=== PATIENT | female | born 1965 | race Caucasian/White ===

== ENCOUNTER 2019-12-30 07:31 | Outpatient (RCR) | payer OTHER, SELFPAY ==
[2019-12-30 11:50] LABS: COVID-19 Test Negative (Negative)
[2020-01-05 08:06] LABS: COVID-19 Test Negative (Negative)
[2020-01-13 08:53] LABS: COVID-19 Test Negative (Negative)
[2020-01-30 14:22] LABS: SARS-COV-2 PCR UMBRL Not Detected
[2020-02-12 09:38] LABS: SARS-COV-2 PCR UMBRL Not Detected
== END 2019-12-30 07:32 | disposition home or self-care (01) ==
LOC: HO.EMPCOV 07:31
PROVIDERS: Visit Provider Internal Medicine
DX: Z20.828 Contact with and (suspected) exposure to other viral communicable diseases (principal)
CPT/HCPCS: 87635; C9803; U0003

== ENCOUNTER 2020-03-10 07:07 | Emergency (ER) | payer OTHER, SELFPAY ==
[2020-03-10 07:17] VITALS: BP 123/70; PULSE 85; RESP 18; TEMP 36.1; O2SAT 97; BMI 31.8
--- NOTE | 2020-03-10 07:24 | ED_ITS ---
HPI - Skin/Abscess/Foreign Bdy General Chief complaint: Skin/Abscess/Foreign Body Stated complaint: abscess Time Seen by Provider: 03/10/20 07:24 Source: patient Mode of arrival: ambulatory Limitations: no limitations History of Present Illness HPI narrative: Patient's history of recurrent MRSA abscesses this time she has abscess on right chin for last 3 days started on doxycycline not helping her, getting worse now no fever no chills Related Data Previous Rx's Medication Instructions Recorded sulfamethoxazole-trimethoprim 1 tab PO BID #20 tab 03/10/20 [Bactrim DS] Allergies Allergy/AdvReac Type Severity Reaction Status Date / Time etanercept [From ENBREL] Allergy Unknown RASH Verified 03/10/20 07:21 Review of Systems Review of Systems: Yes all other systems are reviewed and are negative [facility] Past Medical History Medical History (Updated 03/10/20 @ 08:11 by Elliott Slaughter MD) GERD (gastroesophageal reflux disease) Hypothyroid MRSA infection Rheumatoid arthritis Social History Social History Advance Directives: No Advance Directives Information Provided: No Physical Exam Vital Signs: Vital Signs: Last Vital Signs Temp 97.0 F 03/10/20 07:17 Pulse 85 03/10/20 07:17 Resp 18 03/10/20 07:17 BP 123/70 03/10/20 07:17 Pulse Ox 97 03/10/20 07:17 Body Mass Index 31.8 Const: General: comfortable and no acute distress Orientation/consciousness: patient oriented x3 HENMT: Head: Yes normocephalic and Yes atraumatic Face and sinus: Yes e rythema and Yes Facial tenderness on exam of face and sinuses Face images: 1. Erythematous indurated with abscess 4 x 4 cm Teeth and gingiva: dentition normal and gingiva normal Resp: Effort & Inspection: normal respiratory effort Auscultation: clear to auscultation bilaterally Cardio: Rate: regular rate Rhythm: regular rhythm Neuro: General: patient oriented x3 Course Course Course Narrative: Patient with recurrent abscesses comes here with abscess on the chin poor response to doxycycline will do I and D Procedures Abscess I/D Site: face (chin) Side (if applicable): right Local Anesthetic: lidocaine 2% Amount of anesthesia used (mL): 1 Technique: incised with blade Amount of fluid expressed (mL): 1 Sent for culture/gram staining?: Yes Irrigation: No Packing used?: none Discharge Plan Discharge Clinical Impression: Abscess of skin or subcutaneous tissue Qualifiers: Site of cutaneous abscess: face Qualified Code(s): L02.01 - Cutaneous abscess of face Patient Disposition: Home, Self-Care Instructions: Abscess Incision and Drainage (DC) Additional Instructions: Local care as advised continue doxycycline start on Bactrim also report to PCP/ER if gets worse Prescriptions: New sulfamethoxazole-trimethoprim [Bactrim DS] 800-160 mg tablet 1 tab PO BID Qty: 20 RF: 0 Interventions: ED Discharge Assessment Last Done: 03/10/20 08:16 Discharge Date/Time: 03/10/20 08:16
[2020-03-10] MEDS: Lidocaine HCl 2 % MPF 5 ML VIAL INFILTRATI (07:36)
== END 2020-03-10 08:16 | disposition home or self-care (01) ==
PROVIDERS: Emergency Provider Internal Medicine; PCP Internal Medicine
DX: L02.01 Cutaneous abscess of face (principal); Z79.899 Other long term (current) drug therapy
CPT/HCPCS: 10060; 87071; 87147; 87186; 87205; 99283

== ENCOUNTER 2020-03-11 09:49 | Emergency (ER) | payer OTHER, SELFPAY ==
[2020-03-11 10:09] VITALS: BP 149/65; PULSE 61; RESP 16; TEMP 37.1; O2SAT 98; BMI 31.8
--- NOTE | 2020-03-11 10:31 | ED.WOUNDLAC ---
HPI - Wound/Laceration General Chief Complaint: Wound/Laceration Stated Complaint: abscess chin and neck Time Seen by Provider: 03/11/20 10:30 Source: patient Mode of arrival: ambulatory Limitations: no limitations History of Present Illness HPI narrative: Patient with small abscess on the chin for last 4 days was seen here yesterday I and D was done started on Bactrim patient already on doxycycline comes here as she feels not getting better completely pus culture showed Staph aureus final culture report is pending patient denies any fever or chill Related Data Previous Rx's Medication Instructions Recorded sulfamethoxazole-trimethoprim 1 tab PO BID #20 tab 03/10/20 [Bactrim DS] Allergies Allergy/AdvReac Type Severity Reaction Status Date / Time etanercept [From ENBREL] Allergy Unknown RASH Verified 03/10/20 07:21 Review of Systems Review of Systems: Constitutional : No Weight loss, No Fever, No Chills ENT/Mouth : No sore throat, No Rhinorrhea Eyes: No Eye Pain, No Swelling Cardiovascular : No Chest Pain, no palpitations Respiratory : No Cough, No Sputum, no shortness of breath Gastrointestinal : no Nausea, No Vomiting, No Diarrhea, No abdominal Pain, no black stools Genitourinary : No Dysuria, No Urinary Frequency Musculoskeletal : No joint pain, No Myalgias, No Joint Swelling Skin : No Skin Lesions, No rash Neuro : No Weakness, No Numbness, No Dizziness, No Headache Psych : No Anxiety/Panic, No Depression Heme/Lymph: No Bruising, No Lymphadenopathy Endocrine : No Polyuria, No Polydipsia All other systems reviewed and are negative PMFSH Past Medical History Medical History GERD (gastroesophageal reflux disease) Hypothyroid MRSA infection Rheumatoid arthritis Social History Social History Smoked in Last 30 Days: No Use of substances other than those prescribed or required for medical reasons: No Advance Directives: No Advance Directives Information Provided: Yes Physical Exam Vital Signs: Vital Signs: Last Vital Signs Temp 98.8 F 03/11/20 10:09 Pulse 61 03/11/20 10:09 Resp 16 03/11/20 10:09 BP 149/65 H 03/11/20 10:09 Pulse Ox 98 03/11/20 10:09 Body Mass Index 31.8 Appearance: Alert. Oriented X3. No acute distress. Eyes: Pupils equal, round and reactive to light. ENT: Pharynx normal. Small 4 x 4 cm indurated erythematous area on the right chin without any pus discharge Neck: Normal inspection. Neck supple. CVS: Normal heart rate and rhythm. Pulses normal. Respiratory: No respiratory distress. Breath sounds normal. Abdomen: Soft and nontender. Bowel sounds are present, no mass palpable, no CVA tenderness Skin: Skin warm and dry. Normal skin color. Normal skin turgor. Extremities: No lower extremity edema. Neuro: Oriented X 3. No motor deficit. No sensory deficit. HENMT: Face images: 1. 4 x 4 cm erythematous indurated area without any fluctuancy Course Course Course Narrative: Patient came with healing abscess post I&D very anxious wants to get it healed very quick patient is sure that it will take some time to heal will give a dose of IV Vanco as patient insisted MDM - Wound/Laceration MDM Narrative Medical decision making narrative: Patient with abscess on the chin already on doxycycline Bactrim white counts are normal seems to be getting better will give 1 dose of vancomycin IV as patient has subjective feeling of increasing in size Differential Diagnosis Differential diagnosis: Likely abscess Lab Data Attestation: I reviewed the patient's lab results. Result diagrams: 03/11/20 11:01 03/11/20 11:01 Labs: Lab Results 03/11/20 03/11/20 Range/Units 11:01 11:01 WBC 6.0 (4.8-10.8) X10*3/uL RBC 4.01 L (4.20-5.50) X10*6/uL Hgb 12.7 (12.0-16.0) g/dl Hct 38.4 (37-47) % MCV 95.8 (80-98) fL MCH 31.7 (27.0-33.0) pg MCHC 33.1 (31.0-35.0) g/dl RDW 13.6 (11.0-16.0) % Plt Count 295 (160-400) X10*3/uL MPV 9.7 (9.4-12.3) fL Immature Gran % (Auto) 0.3 (0.0-0.4) % Neut % (Auto) 71.7 (45-73) % Lymph % (Auto) 19.1 L (20-40) % [place] % (Auto) 6.7 (2-11) % Eos % (Auto) 2.0 (0-4) % Baso % (Auto) 0.2 (0-2) % Lymph # (Auto) 1.1 L (1.2-4.9) X10*3/uL [place] # (Auto) 0.4 (0.1-1.2) X10*3/uL Eos # (Auto) 0.1 (0.0-0.4) X10*3/uL Baso # (Auto) 0.0 (0.0-0.2) X10*3/uL Abs Immat Gran (auto) 0.02 (0.00-0.03) X10*3/uL Absolute Neuts (auto) 4.3 (2.0-8.3) X10*3/uL Absolute Nucleated RBC 0.000 (0.0-0.012) X10*3/uL Nucleated RBC % (auto) 0.0 (0.0-0.2) /100WBC Sodium 137 (135-145) mmol/L Potassium 4.8 (3.3-5.1) mmol/l Chloride 107 (96-108) mmol/L Carbon Dioxide 19 L (22-29) mmol/L Anion Gap 16 (12-20) BUN 14 (9-16) mg/dL Creatinine 0.78 (0.5-1.4) mg/dL Estim Creat Clear Calc 87.5 Estimated GFR > 60 Random Glucose 81 (60-115) mg/dL Calcium 9.2 (8.4-10.2) mg/dL Discharge Plan Discharge Clinical Impression: Abscess Patient Disposition: Home, Self-Care Instructions: Abscess Incision and Drainage (DC) Additional Instructions: Local care as advised continue antibiotics as prescribed before report to the ER if gets worse/fever Prescriptions: No Action sulfamethoxazole-trimethoprim [Bactrim DS] 800-160 mg tablet 1 tab PO BID Qty: 20 RF: 0
[2020-03-11] MEDS: vancomycin HCL 1,000 MG in 0.9 % Sodium Chloride 250 ML 270 MG IV (10:54)
[2020-03-11 11:05] LABS: MANUAL DIFF FLAG NO
[2020-03-11 11:06] LABS: Basophils Percent Auto 0.2 % (0-2); Eosinophils Absolute Auto 0.1 X10*3/uL (0.0-0.4); Hematocrit 38.4 % (37-47); Hemoglobin 12.7 g/dl (12.0-16.0); Imm Gran Abs Auto 0.02 X10*3/uL (0.00-0.03); Imm Gran Pct Auto 0.3 % (0.0-0.4); Lymphocytes Absolute Auto 1.1 X10*3/uL (1.2-4.9); Lymphocytes Percent Auto 19.1 % (20-40); Mean Corpuscular HGB Conc 33.1 g/dl (31.0-35.0); Mean Corpuscular Hemoglobin 31.7 pg (27.0-33.0); Mean Corpuscular Volume 95.8 fL (80-98); Mean Platelet Volume 9.7 fL (9.4-12.3); Monocytes Absolute Auto 0.4 X10*3/uL (0.1-1.2); Monocytes Percent Auto 6.7 % (2-11); Neutrophils Absolute Auto 4.3 X10*3/uL (2.0-8.3); Neutrophils Percent Auto 71.7 % (45-73); Platelet Count 295 X10*3/uL (160-400); Red Blood Count 4.01 X10*6/uL (4.20-5.50); Red Cell Distribution Width 13.6 % (11.0-16.0)
[2020-03-11 11:36] LABS: Anion Gap 16 (12-20); Blood Urea Nitrogen 14 mg/dL (9-16); Calcium 9.2 mg/dL (8.4-10.2); Carbon Dioxide 19 mmol/L (22-29); Chloride 107 mmol/L (96-108); Creatinine Clr Calc Pharmacy 87.5; Estimated Glomerular Filt Rate > 60; Glucose Random 81 mg/dL (60-115); Potassium 4.8 mmol/l (3.3-5.1); Sodium 137 mmol/L (135-145)
[2020-03-11 12:00] VITALS: BP 98/42; PULSE 58; RESP 16; O2SAT 98
== END 2020-03-11 12:27 | disposition home or self-care (01) ==
PROVIDERS: Emergency Provider Internal Medicine; PCP Internal Medicine
DX: L02.01 Cutaneous abscess of face (principal); Z86.14 Personal history of Methicillin resistant Staphylococcus aureus infection
CPT/HCPCS: 36415; 80048; 85025; 96365; 99284; J3370

== ENCOUNTER 2020-04-25 15:32 | Outpatient (REF) | payer OTHER, SELFPAY ==
[2020-04-25 16:31] LABS: Free T4 (Free Thyroxine) 0.67 ng/dL (0.71-1.85); Thyroid Stimulating Hormone 2.15 uIU/mL (0.32-4.0)
== END 2020-04-25 15:33 | disposition home or self-care (01) ==
LOC: HO.LAB 15:32
PROVIDERS: PCP Internal Medicine; Visit Provider Internal Medicine
DX: E03.9 Hypothyroidism, unspecified (principal); R73.9 Hyperglycemia, unspecified
CPT/HCPCS: 36415; 84439; 84443

== ENCOUNTER 2020-05-03 09:01 | Outpatient (REF) | payer OTHER, SELFPAY ==
--- NOTE | ~2020-05-03 | MM_ITS ---
EXAMINATION: BONE DENSITOMETRY CLINICAL INDICATION: Rheumatoid arthritis without rheumatoid factor. COMPARISON: None (current study represents initial baseline exam). TECHNIQUE: Using a [employer] DXA System (software version: 13.1) manufactured by [employer], dual-energy x-ray absorptiometry was performed of the lumbar spine and left hip. The images are of good technical quality. Summary results are attached. FINDINGS: AP SPINE L1-L4: BMD 1.028 g/cm2, Z-score -1.2, T-score -1.3, osteopenia. LEFT FEMUR, NECK: BMD 0.973 g/cm2, Z-score 0.1, T-score -0.5, normal. LEFT FEMUR, TOTAL: BMD 0.987 g/cm2, Z-score 0.0, T-score -0.2, normal. IDENTIFIED RISK FACTORS: History of adult fracture. Rheumatoid arthritis. Chronic glucocorticoids. Menopause. HISTORY OF FRACTURE: Ribs. MEDICATIONS: Calcium supplement and/or multivitamin. Vitamin D. MM/XR DEXA axial skeleton IMPRESSION: 1. DIAGNOSIS: Osteopenia based on the lowest T-score value of -1.3 in the lumbar spine applying World Health Organization criteria. 2. 10-YEAR FRACTURE RISK PREDICTION, FRAX: Major osteoporotic fracture (clinical spine, forearm, hip or shoulder) 11.1%. Hip fracture 0.4%. 3. Treatment Recommendations: NOF guidelines recommend consideration for treatment in postmenopausal women and men age 50 and older presenting with the following: -A hip or vertebral (clinical or morphometric) fracture. -T-score less than or equal to -2.5 at the femoral neck or spine after appropriate evaluation to exclude secondary causes. -Low bone mass at the hip or spine and a 10-year fracture probability by FRAX of greater than or equal to 3% for hip fracture or greater than or equal to 20% for major osteoporotic fracture based on the [place] adapted WHO algorithm. 4. Other Recommendations: All treatment decisions require clinical judgment and consideration of individual patient factors, including patient preferences, comorbidities, previous drug use, risk factors not captured in the FRAX model (e.g. frailty, falls, vitamin D deficiency, increased bone turnover, interval significant decline in bone density) and possible under or overestimation of fracture risk by FRAX. Additional medical evaluation for secondary cause of low bone mineral density may be appropriate. FUTURE SCAN RECOMMENDATION: People with diagnosed cases of osteoporosis or at high risk for fracture should have regular bone mineral density tests. For patients eligible for Medicare, routine testing is allowed once every 2 years. The testing frequency can be increased to one year for patients who have rapidly progressing disease, those who are receiving or discontinuing medical therapy to restore bone mass, or have additional risk factors.
== END 2020-05-03 09:02 | disposition home or self-care (01) ==
LOC: HO.MAMMO 09:01
PROVIDERS: Visit Provider Internal Medicine
DX: Z13.820 Encounter for screening for osteoporosis (principal); M06.09 Rheumatoid arthritis without rheumatoid factor, multiple sites; Z79.52 Long term (current) use of systemic steroids; Z78.0 Asymptomatic menopausal state
CPT/HCPCS: 77080

== ENCOUNTER 2020-06-10 13:27 | Outpatient (REF) | payer OTHER, SELFPAY ==
[2020-06-10 15:00] LABS: Free T4 (Free Thyroxine) 0.67 ng/dL (0.71-1.85); Thyroid Stimulating Hormone 2.71 uIU/mL (0.32-4.0)
== END 2020-06-10 13:28 | disposition home or self-care (01) ==
LOC: HO.LAB 13:27
PROVIDERS: PCP Internal Medicine; Visit Provider Internal Medicine
DX: E03.9 Hypothyroidism, unspecified (principal)
CPT/HCPCS: 36415; 84439; 84443

== ENCOUNTER → 2020-08-28 08:43 | Outpatient (BNVA) | payer OTHER, SELFPAY | PROVIDERS: PCP Internal Medicine; Referring Provider Internal Medicine; Visit Provider Surgery ==

== ENCOUNTER 2020-09-17 07:25 | Day surgery (SDC) | payer OTHER, SELFPAY ==
[2020-09-10 14:47] VITALS: BMI 31.9
[2020-09-17 08:23] VITALS: BP 114/71; PULSE 59; RESP 16; TEMP 36.3; O2SAT 95
[2020-09-17] MEDS: Lactated Ringers 1,000 ML 50 ML IVCONT (08:33)
--- NOTE | 2020-09-17 08:52 | MHC.SHP ---
Pre-Procedural Eval Section A Date of Service: 09/17/20 Section B Chief Complaint: hidradenitis suppurativa Allergies: Allergies Allergy/AdvReac Type Severity Reaction Status Date / Time etanercept [From ENBREL] Allergy Intermediate RASH Verified 09/10/20 14:53 tofacitinib [From Xeljanz] AdvReac Intermediate high LFT Verified 08/28/20 08:50 Plan I have reviewed the history and physical and performed a pertinent physical examination on my patient. No changes have occurred unless specified.
--- NOTE | 2020-09-17 08:56 | HO.ANESPROP2 ---
HPI - Anesthesia Eval Consult details Narrative: 55 yo female patient for excision of hidradenitis left axilla PMFSH Active Problems Active Problems: All Active Problems (Updated 09/10/20 @ 14:52 by Addie Beltre) Tinnitus (Acute) Elevated blood sugar (Acute) Axillary abscess (Acute) Hidradenitis suppurativa of left axilla (Acute) Urge incontinence (Acute) Hypercholesterolemia (Acute) Hypothyroid (Acute) Rheumatoid arthritis (Acute) GERD (gastroesophageal reflux disease) (Acute) Past Medical History Medical History (Updated 09/10/20 @ 14:52 by Addie Beltre) COVID-19 vaccine administered GERD (gastroesophageal reflux disease) Hidradenitis suppurativa of left axilla Hypercholesterolemia Hypothyroid MRSA infection Rheumatoid arthritis Urge incontinence Family History Family History Mother Myocardial infarct Father Lung cancer Paternal Uncle Bladder cancer Paternal Aunt Stomach cancer Maternal Uncle Myocardial infarct Family history of problems with anesthesia: No Surgical History Surgical History Compartment syndrome H/O tubal ligation History of eye surgery Hx of tonsillectomy Inguinal hernia Plantar fasciitis, bilateral Ulnar neuropathy at elbow of left upper extremity History of Problems with Anesthesia: Yes (Nausea following 1 surgery) Social History Social History Are you a primary healthcare customer service to a significant other at home: No Do you presently have visiting nurse or other home services: No Alcohol intake: current Alcohol intake frequency: holidays/special occasions only Patient Tobacco Use Status: Never used Tobacco Use of substances other than those prescribed or required for medical reasons: No Have you been hit, kicked, punched, or otherwise hurt by someone within the past year? If so, by whom?: No Are you DNR?: No Advance Directives: No Advance Directives Information Provided: Yes (patient states in process but no official HCP yet) Advance Directives on File: No Recently lost weight without trying: No Eating poorly because of decreased appetite: No Nutrition Risks: No Nutritional Risk Patient : No FDLMP: N/A : No Poor oral hygiene: No Meds Allergies Allergy/AdvReac Type Severity Reaction Status Date / Time etanercept [From ENBREL] Allergy Intermediate RASH Verified 09/10/20 14:53 tofacitinib [From Xeljanz] AdvReac Intermediate high LFT Verified 08/28/20 08:50 Home Medications Medication Instructions Recorded Confirmed Last Taken Type citalopram 20 mg tablet 20 mg PO DAILY 04/25/20 09/10/20 09/17/20 07:00 History multivitamin 1 tab PO DAILY 04/25/20 09/10/20 Unknown History upadacitinib 15 mg tablet,extended 15 mg PO DAILY 04/25/20 09/10/20 09/17/20 07:00 History release 24 hr (Rinvoq) Exam Exam Date and Time: September 17, 2020 0856 Height,Weight and Vital Signs: Height 5 ft 5.5 in Weight 88.451 kg Last Vital Signs Temp 97.3 F 09/17/20 08:23 Pulse 59 09/17/20 08:23 Resp 16 09/17/20 08:23 BP 114/71 09/17/20 08:23 Pulse Ox 95 09/17/20 08:23 Airway Mallampati Class: II TM Dist: >3cm Neck ROM: Full Heart: RRR Lungs: CTAB Assessment and Plan Assessment Anesthesia Assessment: Anesthesia Plan Discussed and Chart Reviewed Final Anesthetic Review Family History of Problems with Anesthesia: No History of Problems with Anesthesia: Yes (Nausea following 1 surgery) NPO: Yes ASA Class: II Final Preanesthetic Review: No Changes in Pt Med Stat, Meds/Allgs Chart Reviewed, Consent Obtained/Reviewed and Anes Risks/Benef Reviewed Patient Risk: Low Procedure Risk: Low Assessment/Block/Sedation in SS: Assess/Block/Sedation-SS Anesthetic Plan Anesthetic Plan: GA and MAC: Disposition: Standard PACU
--- NOTE | 2020-09-17 09:48 | W.PM.OPN ---
Operative Note Operative Note Date of Service: 09/17/20 Narrative: Preop diagnosis: Hidradenitis suppurativa left axilla Postop diagnosis: The same Procedure: Excision of hidradenitis suppurative, left axilla Surgeon: Hayden Ramires MD employment assistant: DAVID Higgins The patient is the 55-year-old female with a risk of recurrent pain, swelling and drainage on the left axilla. She was seen in the office and there were 2 area of induration in the left axilla with drainage. In view of this recurrent symptoms, she wanted to proceed with excision. She understood the technique of excision under anesthesia. She was aware of the risks, benefits, and alternatives. She was brought to the operating room and placed in supine position with the arm abducted to expose the left axilla. She was in monitored anesthesia care. A surgical time-out was done. The left axilla was prepped and draped in the usual sterile fashion. Again there was note of 2 areas of induration, 1 about 1.5 cm in diameter, and the 2nd 1 about 3 cm in diameter. I infiltrated the area of excision using lidocaine 1%. I first made and vertical incision around the smaller area of induration using blade 15. And this was carried down through the full-thickness skin subcutaneous fat using electrocautery to excise the entire indurated area. This was sent as specimen. This incision was about 2 cm in length and width. I then made another elliptical incision around the 2nd area of induration using a blade 15 and this carried down through the full-thickness skin subcutaneous fat to excise the entire indurated area. This was also sent as a specimen. The length of this incision about 3.8 cm and about 3 cm wide. I radiated both areas of excision. I closed both incisions with simple interrupted nylon 3-0 sutures alternating with vertical mattress sutures. Dressings were applied. The area of excision was infiltrated with Marcaine 0.5% for postop analgesia. The procedure was then completed The patient tolerated procedure well. There were no complications noted. Initial final counts of sponges and instruments were correct. Estimated blood loss was about 10 cc The patient was then transferred to the recovery room with stable vital signs.
--- NOTE | 2020-09-17 09:53 | PM.OP ---
Brief Operative Note Date of Service: 09/17/20 Pre-op diagnosis: Hidradenitis suppurativa left axilla Post-op diagnosis: same Procedure: Hidradenitis suppurative a left axilla Surgeon: Hayden Ramires MD Anesthesia: MAC Was an Aircraft Stress Analyst used for this Procedure?: Yes Aircraft Stress Analyst: Savi Higgins Estimated blood loss (mL): 10 Pathology: other (Hidradenitis) Condition: stable Disposition: PACU
[2020-09-17 10:01] VITALS: BP 128/84; PULSE 60; RESP 16; TEMP 36.2; O2SAT 96
[2020-09-17 10:16] VITALS: BP 138/86; PULSE 93; RESP 16; O2SAT 95
[2020-09-17] MEDS: Acetaminophen 325 MG TABLET 650 MG PO (10:20)
[2020-09-17 10:31] VITALS: BP 146/86; PULSE 58; RESP 16; TEMP 36.2; O2SAT 97
[2020-09-17] MEDS: oxyCODONE HCl Immed Release 5 MG TABLET PO (10:35)
== END 2020-09-17 11:00 | disposition home or self-care (01) ==
PROVIDERS: PCP Internal Medicine; Visit Provider Surgery
PROC: (CPT 11450; principal; 2020-09-17 09:10)
DX: L73.2 Hidradenitis suppurativa (principal); Z86.14 Personal history of Methicillin resistant Staphylococcus aureus infection; M06.9 Rheumatoid arthritis, unspecified; K21.9 Gastro-esophageal reflux disease without esophagitis; E78.00 Pure hypercholesterolemia, unspecified; Z79.899 Other long term (current) drug therapy; Z88.0 Allergy status to penicillin
CPT/HCPCS: 11450; 88305; 88307; J0690; J1100; J2250; J2405; J3010

== ENCOUNTER → 2020-09-25 08:35 | Outpatient (BNVA) | payer OTHER, SELFPAY | PROVIDERS: PCP Internal Medicine; Referring Provider Internal Medicine; Visit Provider Surgery ==

== ENCOUNTER → 2020-09-30 11:14 | Outpatient (BNVA) | payer OTHER, SELFPAY | PROVIDERS: PCP Internal Medicine; Visit Provider Surgery ==

== ENCOUNTER 2020-11-06 23:24 | Outpatient (REF) | payer OTHER, SELFPAY ==
[2020-11-07 00:03] LABS: COVID-19 Test Negative (Negative); IDNOW Serial# 9DD0AD1C
== END 2020-11-06 23:25 | disposition home or self-care (01) ==
LOC: HO.LAB 23:24
PROVIDERS: Internal Medicine; Visit Provider Nurse Practitioner Family
DX: Z20.822 Contact with and (suspected) exposure to COVID-19 (principal)
CPT/HCPCS: 36415; 87635

== ENCOUNTER 2021-04-09 07:25 | Outpatient (REF) | payer OTHER, SELFPAY ==
--- NOTE | ~2021-04-09 | XR_ITS ---
EXAMINATION: XR RIBS, RIGHT CLINICAL INFORMATION: Chest pain. Right rib pain. COMPARISON: None TECHNIQUE: 3 views of the right ribs were obtained with marker along the right lower chest wall. Chest one view FINDINGS: CHEST: The lungs are well-expanded and clear acute pneumonic consolidation. There is no pleural effusion or pneumothorax. There is bilateral apical pleural thickening and minimal apical scarring. The heart size and progress clarities normal. No gross bony abnormality seen. RIGHT RIBS: Multiple views of right ribs reveal no visible rib fracture. Or bony abnormality. The soft tissues are normal. XR/XR ribs RT min 3V w CXR1V IMPRESSION: Unremarkable chest exam except for bilateral apical pleural thickening. No visible right rib fracture or bony abnormality.
== END 2021-04-09 07:26 | disposition home or self-care (01) ==
LOC: HO.XRAY 07:25
PROVIDERS: PCP Internal Medicine; Visit Provider Internal Medicine
DX: R07.9 Chest pain, unspecified (principal)
CPT/HCPCS: 71101

== ENCOUNTER 2021-06-05 07:58 | Outpatient (REF) | payer OTHER, SELFPAY ==
--- NOTE | ~2021-06-05 | XR_ITS ---
EXAMINATION: XR LUMBOSACRAL SPINE CLINICAL INFORMATION: Left-sided lower back pain for 7-8 months. COMPARISON: None TECHNIQUE: Three views of the lumbosacral spine. FINDINGS: There is normal vertebral segmentation with 5 nonrib-bearing vertebrae of normal height and normal lumbar lordosis. There is gentle dextrocurvature. No destructive process, spondylolisthesis, disc narrowing, or erosive changes. There is fine radiolucent line overlying the left transverse process L4, possibly artifact from soft tissue planes. Acute nondisplaced hairline fracture may have similar appearance. Clinically correlate. The SI joints and visualized sacrum are unremarkable. Bowel gas unremarkable. XR/XR lumbar spine 2-3V IMPRESSION: -Artifactual radiolucent line from soft tissue planes overlying left transverse process L4 versus acute nondisplaced hairline fracture. Clinically correlate. -No lumbar vertebral compression, spondylolisthesis, or disc narrowing.
[2021-06-05 09:06] LABS: MANUAL DIFF FLAG NO
[2021-06-05 09:52] LABS: Basophils Percent Auto 0.5 % (0-2); Eosinophils Absolute Auto 0.1 X10*3/uL (0.0-0.4); Eosinophils Percent Auto 1.1 % (0-4); Hematocrit 41.4 % (37.0-47.0); Hemoglobin 13.8 g/dl (12.0-16.0); Imm Gran Abs Auto 0.03 X10*3/uL (0.00-0.03); Imm Gran Pct Auto 0.5 % (0.0-0.4); Lymphocytes Absolute Auto 1.3 X10*3/uL (1.2-4.9); Lymphocytes Percent Auto 21.2 % (20-40); Mean Corpuscular HGB Conc 33.3 g/dl (31.0-35.0); Mean Corpuscular Hemoglobin 31.7 pg (27.0-33.0); Mean Corpuscular Volume 95.2 fL (80.0-98.0); Mean Platelet Volume 9.8 fL (9.4-12.3); Monocytes Absolute Auto 0.5 X10*3/uL (0.1-1.2); Monocytes Percent Auto 7.8 % (2-11); Neutrophils Absolute Auto 4.3 x10*3/uL (2.0-8.3); Neutrophils Percent Auto 68.9 % (45-73); Platelet Count 441 X10*3/uL (160-400); Red Blood Count 4.35 X10*6/uL (4.20-5.50); White Blood Count 6.3 X10*3/uL (4.8-10.8)
[2021-06-05 10:03] LABS: Estimated Average Glucose 120 mg/dL; Hemoglobin A1c % 5.8 %
[2021-06-05 10:29] LABS: Alanine Aminotransferase 107 U/L (0-31); Albumin Level 4.4 g/dL (3.5-5.0); Alkaline Phosphatase 69 U/L (39-117); Anion Gap 15 (12-20); Aspartate Amino Transferase 74 U/L (5-31); Bilirubin Total 0.4 mg/dL (0.0-1.0); Blood Urea Nitrogen 14 mg/dL (9-16); C Reactive Protein 0.12 mg/dL (< or = 0.50); Calcium 10.1 mg/dL (8.4-10.2); Carbon Dioxide 23 mmol/L (22-29); Chloride 105 mmol/L (96-108); Cholesterol 318 mg/dL; Estimated Glomerular Filt Rate > 60; Glucose Random 94 mg/dL (60-115); HDL Cholesterol 63 mg/dL; LDL Cholesterol Calculated 203 mg/dl; Potassium 4.8 mmol/L (3.3-5.1); Sodium 138 mmol/L (135-145); Total Protein 7.7 g/dL (6.5-8.0); Triglycerides 263 mg/dL
[2021-06-05 10:40] LABS: Free T4 (Free Thyroxine) 0.73 ng/dL (0.71-1.85); Thyroid Stimulating Hormone 1.12 uIU/mL (0.32-4.0); Vitamin D 25-OH Total 17.3 ng/mL (>30)
[2021-06-05 10:51] LABS: Folate 13.4 ng/mL (> or = 4.0); Vitamin B12 425 pg/mL (200-900)
[2021-06-05 11:33] LABS: Erythrocyte Sedimentation Rate 10 MM/HR (0-20)
== END 2021-06-05 07:59 | disposition home or self-care (01) ==
LOC: HO.LAB 07:58
PROVIDERS: PCP Internal Medicine; Visit Provider Internal Medicine Rheumatology
DX: K21.9 Gastro-esophageal reflux disease without esophagitis (principal); R73.9 Hyperglycemia, unspecified; E78.00 Pure hypercholesterolemia, unspecified; E03.9 Hypothyroidism, unspecified; M06.09 Rheumatoid arthritis without rheumatoid factor, multiple sites; L73.2 Hidradenitis suppurativa; R74.01 Elevation of levels of liver transaminase levels; M54.50 Low back pain, unspecified; Z79.899 Other long term (current) drug therapy
CPT/HCPCS: 36415; 72100; 80053; 80061; 82306; 82607; 82746; 83036; 84439; 84443; 85025; 85652; 86140

== ENCOUNTER 2021-09-23 15:29 | Outpatient (REF) | payer BC, SELFPAY ==
[2021-09-23 17:06] LABS: Estimated Glomerular Filt Rate > 60
[2021-09-23 17:25] LABS: Erythrocyte Sedimentation Rate 17 MM/HR (0-20)
== END 2021-09-23 15:30 | disposition home or self-care (01) ==
LOC: HO.LAB 15:29
PROVIDERS: Absent Provider Internal Medicine Rheumatology; PCP Internal Medicine; Visit Provider Advanced Practice Midwife
DX: R10.2 Pelvic and perineal pain (principal); M06.09 Rheumatoid arthritis without rheumatoid factor, multiple sites; Z79.899 Other long term (current) drug therapy
CPT/HCPCS: 36415; 81003; 82565; 85652

== ENCOUNTER 2021-10-06 16:42 | Outpatient (REF) | payer BC, SELFPAY ==
[2021-10-06 18:01] LABS: Alanine Aminotransferase 92 U/L (0-31); Albumin Level 4.2 g/dL (3.5-5.0); Alkaline Phosphatase 84 U/L (39-117); Aspartate Amino Transferase 63 U/L (5-31); Bilirubin Direct < 0.2 mg/dL (0.0-0.5); Bilirubin Total 0.2 mg/dL (0.0-1.0); Total Protein 7.6 g/dL (6.5-8.0)
== END 2021-10-06 16:43 | disposition home or self-care (01) ==
LOC: HO.LAB 16:42
PROVIDERS: PCP Internal Medicine; Visit Provider Internal Medicine Rheumatology
DX: M06.09 Rheumatoid arthritis without rheumatoid factor, multiple sites (principal); R74.01 Elevation of levels of liver transaminase levels; Z79.899 Other long term (current) drug therapy
CPT/HCPCS: 36415; 80076

== ENCOUNTER 2021-11-11 13:51 | Outpatient (REF) | payer BC, SELFPAY ==
--- NOTE | ~2021-11-11 | MM_ITS ---
EXAMINATION: MM SCREENING DIGITAL BREAST TOMOSYNTHESIS, BILATERAL CLINICAL INFORMATION: Screening. Asymptomatic. Remote prior mammography no longer available. The lifetime risk of breast cancer based on the Tyrer-Cuzick Model is 7%. COMPARISON: None (current study represents new baseline exam). TECHNIQUE: Digital breast tomosynthesis is performed in both the craniocaudal and mediolateral oblique views along with computer-aided detection (CAD). Synthesized 2D images are generated from the tomosynthesis. FINDINGS: There are scattered areas of fibroglandular density (ACR BI-RADS breast composition Category b). There are no significant masses, abnormal calcifications, or other abnormalities. Breast tissue composition borders on predominantly fatty. No architectural abnormality. The axilla and skin contours are unremarkable. MM/MM tomosynthesis screening BI IMPRESSION: No mammographic evidence of malignancy. ASSESSMENT: BI-RADS 1: Negative RECOMMENDATION: Routine annual mammography screening. This patient's information was entered into a reminder system with a target due date for their next mammogram.
--- NOTE | ~2021-11-11 | US_ITS ---
EXAMINATION: US PELVIS CLINICAL INFORMATION: Pelvic and perineal pain. COMPARISON: None TECHNIQUE: Ultrasound of the pelvis is performed using both transabdominal and transvaginal transducers. Transvaginal imaging is performed due to inadequate visualization transabdominally. FINDINGS: Uterus: The uterus is retroverted, anteflexed and measures 4.4 x 3 x 3.8 cm. The double wall endometrial thickness is 3 mm. The uterus is smooth in contour and has normal myometrial echogenicity. No visible fibroid. Adnexa: The ovaries are not visualized. No adnexal mass. No free fluid. US/US pelvic and transvaginal IMPRESSION: Unremarkable appearance of the uterus. Nonvisualization of the ovaries. No adnexal mass.
== END 2021-11-11 13:52 | disposition home or self-care (01) ==
LOC: HO.US 13:51
PROVIDERS: Visit Provider Advanced Practice Midwife
DX: Z12.31 Encounter for screening mammogram for malignant neoplasm of breast (principal); R10.2 Pelvic and perineal pain
CPT/HCPCS: 76830; 76856; 77063; 77067

== ENCOUNTER 2021-11-21 14:47 | Outpatient (REF) | payer BC, SELFPAY ==
[2021-11-21 14:56] LABS: MANUAL DIFF FLAG NO
[2021-11-21 16:13] LABS: Alanine Aminotransferase 85 U/L (0-31); Aspartate Amino Transferase 68 U/L (5-31); C Reactive Protein 0.56 mg/dL (< or = 0.50); Estimated Glomerular Filt Rate > 60
[2021-11-21 16:14] LABS: Basophils Percent Auto 0.6 % (0-2); Eosinophils Absolute Auto 0.2 X10*3/uL (0.0-0.4); Eosinophils Percent Auto 4.7 % (0-4); Hematocrit 39.6 % (37.0-47.0); Imm Gran Abs Auto 0.01 X10*3/uL (0.00-0.03); Imm Gran Pct Auto 0.2 % (0.0-0.4); Lymphocytes Absolute Auto 1.3 X10*3/uL (1.2-4.9); Lymphocytes Percent Auto 27.4 % (20-40); Mean Corpuscular HGB Conc 32.8 g/dl (31.0-35.0); Mean Corpuscular Hemoglobin 31.3 pg (27.0-33.0); Mean Corpuscular Volume 95.4 fL (80.0-98.0); Mean Platelet Volume 10.1 fL (9.4-12.3); Monocytes Absolute Auto 0.4 X10*3/uL (0.1-1.2); Monocytes Percent Auto 9.5 % (2-11); Neutrophils Absolute Auto 2.7 x10*3/uL (2.0-8.3); Neutrophils Percent Auto 57.6 % (45-73); Platelet Count 337 X10*3/uL (160-400); Red Blood Count 4.15 X10*6/uL (4.20-5.50); Red Cell Distribution Width 13.2 % (11.0-16.0); White Blood Count 4.6 X10*3/uL (4.8-10.8)
[2021-11-21 17:24] LABS: Erythrocyte Sedimentation Rate 18 MM/HR (0-20)
== END 2021-11-21 14:48 | disposition home or self-care (01) ==
LOC: HO.LAB 14:47
PROVIDERS: PCP Internal Medicine; Visit Provider Internal Medicine Rheumatology
DX: M06.09 Rheumatoid arthritis without rheumatoid factor, multiple sites (principal); R74.01 Elevation of levels of liver transaminase levels; Z79.899 Other long term (current) drug therapy
CPT/HCPCS: 36415; 82565; 84450; 84460; 85025; 85652; 86140

== ENCOUNTER 2021-12-30 07:04 | Outpatient (REF) | payer BC, SELFPAY ==
[2021-12-30 11:57] LABS: Blood Urea Nitrogen 14 mg/dL (9-16)
== END 2021-12-30 07:05 | disposition home or self-care (01) ==
LOC: HO.WFDLDS 07:04
PROVIDERS: Visit Provider Physician Assistant
DX: R10.9 Unspecified abdominal pain (principal)
CPT/HCPCS: 36415; 84520

== ENCOUNTER 2022-01-02 16:01 | Outpatient (REF) | payer BC, SELFPAY ==
--- NOTE | ~2022-01-02 | US_ITS ---
EXAMINATION: US THYROID CLINICAL INFORMATION: Hypothyroidism, unspecified. COMPARISON: None TECHNIQUE: Linear transducer grayscale and color Doppler examination with attention to the region of the thyroid. FINDINGS: SIZE: Measurements of the thyroid lobes and nodules are given in sagittal, anteroposterior and transverse dimensions respectively. Right Thyroid Lobe: 5.5 x 1.9 x 1.7 cm, volume 9.3 mL. Parenchyma: The gland echotexture is heterogeneous. Thyroid vascularity is normal. Left Thyroid Lobe: 5.2 x 2.0 x 2.0 cm, volume 10.9 mL. Parenchyma: The gland echotexture is heterogeneous. Thyroid vascularity is normal. Isthmus: 0.6 cm in maximum AP dimension. Estimated total number of nodules greater than or equal to 1 cm: 0. Rehabilitation Services Aide nodules are described as follows: 1. Location: Left superior. Size: 0.4 x 0.2 x 0.2 cm, volume 0.01 mL. Nodule characteristics: Composition: Solid (2). Echogenicity: Hypoechoic (2). Shape: Not taller than wide (0). Margins: Irregular (2). Echogenic Foci: None (0). ACR TI-RADS total points: 6 ACR TI-RADS category: 4 NODES: No lymphadenopathy is seen in the tissue surrounding the thyroid gland. US/US thyroid IMPRESSION: The thyroid parenchyma is slightly heterogeneous which is nonspecific but could be seen with thyroiditis or autoimmune thyroid disorders. Correlate clinically and with laboratory findings. There is a subcentimeter left upper pole TR-4 nodule, not meeting size criteria for further evaluation according to the ACR TI-RADs recommendations (see below). ACR TI-RADS RECOMMENDATION REFERENCE: Ultrasound-guided fine-needle aspiration, followup ultrasound, no further follow up. * TR1 (0 point) and TR 2 (2 points): No FNA or follow up. * TR3 (3 points): FNA if more than or equal to 2.5 cm in maximum dimension, followup ultrasound in 1, 3 and 5 years if 1.5 to 2.4 cm in maximum dimension. * TR4 (4-6 points): FNA if more than or equal to 1.5 cm in maximum dimension, followup ultrasound in 1, 2, 3 and 5 years if 1 to 1.4 cm in maximum dimension. * TR5 (more than or equal to 7 points): FNA if more than or equal to 1 cm in maximum dimension, followup ultrasound every year for 5 years if 0.5 to 0.9 cm in maximum dimension. * TR3, TR4 or TR5 nodules that are below the size threshold for followup receive no follow up.
== END 2022-01-02 16:02 | disposition home or self-care (01) ==
LOC: HO.US 16:01
PROVIDERS: Visit Provider Internal Medicine
DX: E03.9 Hypothyroidism, unspecified (principal)
CPT/HCPCS: 76536

== ENCOUNTER 2022-01-06 10:14 | Outpatient (REF) | payer BC, SELFPAY ==
--- NOTE | ~2022-01-06 | CT_ITS ---
EXAMINATION: CT ABDOMEN AND PELVIS WITH CONTRAST CLINICAL INFORMATION: Abdominal pain COMPARISON: Previous pelvic ultrasound October 2021 TECHNIQUE: Multidetector volumetric images were obtained from the superior aspect of the liver through the pubic symphysis following administration 85 mL of Omnipaque 350 intravenous contrast. Sagittal and coronal reformatted images were obtained on the technologist's workstation. Oral contrast: Yes This CT examination was performed using dose optimization techniques as appropriate, variously including the following: *Automated exposure control *Adjustment of mA and/or kV according to patient size (this includes techniques or standardized protocols for targeted exams where dose is matched to indication/reason for exam; i.e. extremities or head) *Use of iterative reconstruction technique DLP: 523 mGy-cm FINDINGS: LUNG BASES: 5 mm left lower lobe nodule axial image 7 series LIVER, GALLBLADDER, AND BILIARY TREE: The liver is low in attenuation suggestive of fatty infiltration. The liver is normal in size and contour.. No focal hepatic lesion or biliary ductal dilatation is present. The gallbladder is unremarkable with no evidence of radiopaque gallstones, gallbladder wall thickening, or obvious pericholecystic inflammatory changes. PANCREAS: Unremarkable. SPLEEN: Unremarkable. ADRENAL GLANDS: Unremarkable. KIDNEYS AND URETERS: The kidneys are normal in size, shape, and attenuation. No hydronephrosis, hydroureter, or calculi seen. No perinephric stranding. BLADDER: Unremarkable. GASTROINTESTINAL TRACT: There may be a small duodenal diverticulum adjacent to the head of the pancreas. There is stool throughout the colon questionable for mild constipation. No evidence of obstruction. The small and large bowel are otherwise unremarkable. The appendix is unremarkable. ABDOMINAL WALL: No significant hernia is appreciated. LYMPH NODES: Normal. VASCULAR: Unremarkable. PELVIC VISCERA: Unremarkable. OSSEOUS STRUCTURES: Mild degenerative changes of the spine. CT/CT abdomen pelvis w IV con IMPRESSION: 5 mm left lower lobe nodule. Follow-up chest CT recommended. Fatty liver. Stool throughout the colon questionable for mild constipation. Fleischner guidelines were followed.
[2022-01-06] MEDS: iohexoL 350 MG/ML 100 ML INFUS..BTL IV (10:59)
[2022-01-06 14:46] LABS: Creatinine POC 0.8 mg/dL (0.5-1.4); GFR POC > 60
== END 2022-01-06 10:15 | disposition home or self-care (01) ==
LOC: HO.CT 10:14
PROVIDERS: PCP Internal Medicine; Visit Provider Physician Assistant
DX: R10.9 Unspecified abdominal pain (principal)
CPT/HCPCS: 74177; 82565; Q9967

== ENCOUNTER 2022-01-09 09:35 | Outpatient (REF) | payer BC, SELFPAY ==
[2022-01-09 11:33] LABS: Alanine Aminotransferase 76 U/L (0-31); Albumin Level 4.4 g/dL (3.5-5.0); Alkaline Phosphatase 77 U/L (39-117); Anion Gap 15 (12-20); Aspartate Amino Transferase 48 U/L (5-31); Bilirubin Total 0.4 mg/dL (0.0-1.0); Blood Urea Nitrogen 14 mg/dL (9-16); C Reactive Protein 0.08 mg/dL (< or = 0.50); Calcium 9.5 mg/dL (8.4-10.2); Carbon Dioxide 22 mmol/L (22-29); Chloride 106 mmol/L (96-108); Cholesterol 308 mg/dL; Estimated Glomerular Filt Rate > 60; Glucose Random 96 mg/dL (60-115); HDL Cholesterol 64 mg/dL; LDL Cholesterol Calculated 214 mg/dl; Potassium 4.9 mmol/L (3.3-5.1); Sodium 138 mmol/L (135-145); Total Protein 7.8 g/dL (6.5-8.0); Triglycerides 151 mg/dL
[2022-01-09 11:46] LABS: Estimated Average Glucose 126 mg/dL; Vitamin D 25-OH Total 27.5 ng/mL (>30)
[2022-01-11 10:17] LABS: Calcium (PTHI) 9.4 mg/dL (8.6-10.4); PTHI 72 pg/mL (16-77)
== END 2022-01-09 09:36 | disposition home or self-care (01) ==
LOC: HO.LAB 09:35
PROVIDERS: PCP Internal Medicine; Visit Provider Internal Medicine
DX: M06.09 Rheumatoid arthritis without rheumatoid factor, multiple sites (principal); R73.01 Impaired fasting glucose; R74.01 Elevation of levels of liver transaminase levels; E55.9 Vitamin D deficiency, unspecified; E78.00 Pure hypercholesterolemia, unspecified; Z79.899 Other long term (current) drug therapy
CPT/HCPCS: 36415; 80053; 80061; 82306; 83036; 83970; 86140

== ENCOUNTER 2022-04-01 10:32 | Outpatient (REF) | payer BC, SELFPAY ==
--- NOTE | ~2022-04-01 | XR_ITS ---
EXAMINATION: XR CHEST CLINICAL INFORMATION: Other signs and symptoms involving with circulatory and respiratory systems COMPARISON: Previous chest x-ray March 2022 TECHNIQUE: 2 views of the chest were obtained. FINDINGS: The cardiac and mediastinal contours are stable. There is bilateral mild pleural thickening that is stable. The lungs are otherwise clear. There is no pleural effusion or pneumothorax. Bony structures are unremarkable. XR/XR chest 2V IMPRESSION: No evidence for acute disease in the chest.
[2022-04-01 13:01] LABS: MANUAL DIFF FLAG NO
[2022-04-01 13:06] LABS: Basophils Percent Auto 0.6 % (0-2); Eosinophils Absolute Auto 0.1 X10*3/uL (0.0-0.4); Eosinophils Percent Auto 1.2 % (0-4); Hematocrit 41.6 % (37.0-47.0); Hemoglobin 13.9 g/dl (12.0-16.0); Imm Gran Abs Auto 0.01 X10*3/uL (0.00-0.03); Imm Gran Pct Auto 0.2 % (0.0-0.4); Lymphocytes Absolute Auto 2.1 X10*3/uL (1.2-4.9); Lymphocytes Percent Auto 39.8 % (20-40); Mean Corpuscular HGB Conc 33.4 g/dl (31.0-35.0); Mean Corpuscular Hemoglobin 31.3 pg (27.0-33.0); Mean Corpuscular Volume 93.7 fL (80.0-98.0); Mean Platelet Volume 9.4 fL (9.4-12.3); Monocytes Absolute Auto 0.4 X10*3/uL (0.1-1.2); Monocytes Percent Auto 8.2 % (2-11); Neutrophils Absolute Auto 2.6 x10*3/uL (2.0-8.3); Platelet Count 376 X10*3/uL (160-400); Red Blood Count 4.44 X10*6/uL (4.20-5.50); Red Cell Distribution Width 13.9 % (11.0-16.0); White Blood Count 5.2 X10*3/uL (4.8-10.8)
[2022-04-01 13:48] LABS: Erythrocyte Sedimentation Rate 13 MM/HR (0-20)
[2022-04-01 14:20] LABS: Alanine Aminotransferase 148 U/L (0-31); Aspartate Amino Transferase 80 U/L (5-31); Estimated Glomerular Filt Rate > 60
[2022-04-01 16:17] LABS: Influenza A PCR NEGATIVE (Negative); Influenza B PCR NEGATIVE (Negative); Resp Syncy Virus RNA Qual PCR POSITIVE (Negative); SARS COV2 PCR INHOUSE NEGATIVE (Negative)
== END 2022-04-01 10:33 | disposition home or self-care (01) ==
LOC: HO.LAB 10:32
PROVIDERS: Absent Provider Internal Medicine Rheumatology; PCP Internal Medicine; Visit Provider Nurse Practitioner Family
DX: Z20.822 Contact with and (suspected) exposure to COVID-19 (principal); M06.09 Rheumatoid arthritis without rheumatoid factor, multiple sites; R74.01 Elevation of levels of liver transaminase levels; R05.9 Cough, unspecified; R09.89 Other specified symptoms and signs involving the circulatory and respiratory systems; Z79.899 Other long term (current) drug therapy
CPT/HCPCS: 0241U; 36415; 71046; 82565; 84450; 84460; 85025; 85652; 86140

== ENCOUNTER → 2022-04-21 10:07 | Outpatient (BNVA) | payer BC, SELFPAY | PROVIDERS: PCP Internal Medicine; Visit Provider Internal Medicine Rheumatology | DX: Z13.89 Encounter for screening for other disorder (principal) ==

== ENCOUNTER 2022-06-16 10:28 | Day surgery (SDC) | payer BC, SELFPAY ==
[2022-06-12 10:02] VITALS: BMI 32.5
--- NOTE | 2022-06-15 13:09 | HO.ANESPROP2 ---
HPI - Anesthesia Eval Consult details Narrative: 57yo F for Upper Endoscopy and Colonoscopy [facility] Active Problems Active Problems: All Active Problems (Updated 06/12/22 @ 09:55 by Mayela Magana RN) Tinnitus (Acute) Generalized anxiety disorder (Acute) TMJ (temporomandibular joint disorder) (Acute) Urinary incontinence (Acute) Low back pain (Acute) COVID-19 virus infection (Acute) PMDD (premenstrual dysphoric disorder) (Acute) Impaired fasting blood sugar (Acute) Vitamin D deficiency (Acute) Abdominal pain (Acute) Thyroid nodule (Acute) Pulmonary nodule (Acute) Obesity (BMI 30.0-34.9) (Acute) Elevated transaminase level (Acute) Long-term use of immunosuppressant medication (Acute) Hidradenitis suppurativa of left axilla (Acute) Urge incontinence (Acute) Hypercholesterolemia (Acute) Hypothyroid (Acute) Rheumatoid arthritis (Acute) GERD (gastroesophageal reflux disease) (Acute) Past Medical History Medical History COVID-19 vaccine administered Elevated transaminase level GERD (gastroesophageal reflux disease) Hidradenitis suppurativa of left axilla Hypercholesterolemia Hypothyroid Long-term use of immunosuppressant medication MRSA infection Pneumonia Rheumatoid arthritis Urge incontinence Family History Family History Mother Myocardial infarct Father Lung cancer Paternal Uncle Bladder cancer Paternal Aunt Stomach cancer Maternal Uncle Myocardial infarct Family history of problems with anesthesia: No Surgical History Surgical History H/O tubal ligation History of eye surgery Hx of tonsillectomy Inguinal hernia Plantar fasciitis, bilateral Ulnar neuropathy at elbow of left upper extremity History of Problems with Anesthesia: Yes Social History Social History Housing: House Are you a primary manager respiratory care to a significant other at home: No Do you presently have visiting nurse or other home services: No Alcohol intake: current Alcohol intake frequency: a few times a week Patient Tobacco Use Status: Never used Tobacco e-Cigarette/Vaping Use: Never Used Second Hand Smoke Exposure: No Advance Directives Date on File: 09/17/20 Current occupational status: employed 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 Cognitive needs: No Hearing needs: No Vision needs: Yes Meds Allergies Allergy/AdvReac Type Severity Reaction Status Date / Time etanercept [From ENBREL] Allergy Intermediate RASH Verified 06/16/22 10:38 tofacitinib [From Xeljanz] AdvReac Intermediate high LFT Verified 06/16/22 10:38 Home Medications Medication Instructions Recorded Confirmed Last Taken Type multivitamin 1 tab PO DAILY 11/26/20 06/12/22 06/16/22 06:30 History cholecalciferol (vitamin D3) 25 50 mcg PO DAILY 12/23/21 06/12/22 06/16/22 06:30 History mcg (1,000 unit) capsule Exam Exam Date and Time: June 15, 2022 1309 Height,Weight and Vital Signs: Height 5 ft 5 in Weight 88.904 kg Pertinent Lab Results Pertinent Lab Results: Laboratory Tests 01/09/22 04/01/22 04/01/22 09:45 13:00 13:00 WBC 5.2 Hgb 13.9 Hct 41.6 Plt Count 376 Sodium 138 Potassium 4.9 Chloride 106 Carbon Dioxide 22 BUN 14 Creatinine 0.77 Assessment and Plan Assessment Anesthesia Assessment: Chart Reviewed Final Anesthetic Review Family History of Problems with Anesthesia: No History of Problems with Anesthesia: Yes
--- NOTE | 2022-06-16 10:45 | P.HPSUR_ITS ---
Pre-Procedural Eval Section A Date of Service: 06/16/22 Section B Chief Complaint: colon screening and globus, reflux Relevant Family History (Specify if Yes): No Relevant Social History: None Present Medications: see Short Stay Collaborative assessment Medical History: Significant History (Elevated transaminase level GERD (gastroesophageal reflux disease) Hidradenitis suppurativa of left axilla Hyperc holesterolemia Hypothyroid Long-term use of immunosuppressant medication MRSA infection Pneumonia Rheumatoid arthritis Urge incontinence) History of Previous Operations: Relevant previous surgery/procedure and date(s) (H/O tubal ligation History of eye surgery Hx of tonsillectomy Inguinal hernia Plantar fasciitis, bilateral Ulnar neuropathy at elbow of left upper extremity) Allergies: Allergies Allergy/AdvReac Type Severity Reaction Status Date / Time etanercept [From ENBREL] Allergy Intermediate RASH Verified 06/16/22 10:38 tofacitinib [From Xeljanz] AdvReac Intermediate high LFT Verified 06/16/22 10:38 Review of Systems Sugical H&P ROS: Negative: Constitution, Cardiovascular, Respiratory, Neurological, Psychiatric, Hem-Onc, Allergic/Immunologic, Gastrointestinal, Genitourinary, Musculoskeletal, Integumentary, Endocrine and Eyes/Ears/Nose/Th roat Exam Surgical H&P Exam: Normal: HEENT, Normal: Heart, Normal: Lungs, Normal: Extremities, Normal: Abdomen, Normal: Skin and Normal: Neurological Plan Diagnosis/Plan: Unchanged I have reviewed the history and physical and performed a pertinent physical examination on my patient. No changes have occurred unless specified. Time Spent With Patient Time: Total time managing care of this patient today ____ minutes.
[2022-06-16 10:48] VITALS: BP 114/68; PULSE 78; RESP 16; TEMP 36.6; O2SAT 96
[2022-06-16] MEDS: Lactated Ringers 1,000 ML 100 ML IVCONT (11:06)
[2022-06-16] MEDS: Albuterol Sulfate (0.083%) 2.5 MG/3 ML VIAL.NEB INHALE (11:15)
[2022-06-16 11:18] VITALS: PULSE 59; RESP 16; O2SAT 97
--- NOTE | 2022-06-16 11:36 | W.PM.OPN ---
Operative Note Operative Note Date of Service: 06/16/22 Narrative: Operative Information Procedure Description: EGD, Colonoscopy Indication: globus sensation, screening colonoscopy Anesthesia: MAC FLEXIBLE TRANSORAL UPPER GASTROINTESTINAL ENDOSCOPY AND COLONOSCOPY PROCEDURE NOTE UPPER ENDOSCOPY Consent: Indications for the procedure and potential complications of bleeding, perforation, reaction to medications and missed diagnosis were discussed with the patient and informed consent was obtained. Instrument: Olympus GIF H 190 J mid size upper endoscope Monitoring: Vital signs and clinical assessment, continuous EKG monitoring, Pulse oximetry, Carbon Dioxide monitoring and blood pressure monitoring were done throughout the procedure. Procedure: The patient was placed in the left lateral decubitis position and pre-procedure medications were administered and a bite block was placed. The endoscope was inserted into the mouth and advanced under direct vision to the third part of duodenum. A careful inspection was made as the upper endoscope was withdrawn including a retroflexed examination of the proximal stomach; Findings and interventions are described below. Findings: Larynx:normal Esophagus: GE junction at 37 cm, diaphragm hiatus at 40 cm, compatible with 3 cm sliding hiatal hernia, bx taken from GEJ, and distal, proximal esophagus. Balloon dilation done to 19 mm at UES and 20 mm at LES< no tears seen Stomach: Patchy erythema. Biopsies were obtained. Grade 2 flap valve on retroflexed examination of the cardia. Duodenum: Normal bulb and descending duodenum, Intervention: Biopsies as noted above, balloon dilation COLONOSCOPY Instrument: Olympus variable stiffness pediatric scope 190L Colonoscopy Monitoring: Vital signs and clinical assessment, continuous EKG monitoring, Pulse oximetry, Carbon Dioxide monitoring and blood pressure monitoring were done throughout the procedure. Colon withdrawal time was 10 minutes. Procedure: The patient was placed in the left lateral decubitis position and pre-procedure medications were administered. After a digital rectal examination of the ano-rectum, the video colonoscope was inserted into the rectum and advanced through the colon to the cecum/TI. The colonoscope was slowly withdrawn in a retrograde panoramic fashion and the colon mucosa was carefully examined including a retroflexed view of the rectum. Findings and interventions are described below. Procedure Difficulty:moderate, slightly tortuous colon Findings: Terminal Ileum-normal Cecum: 6-8 mm sessile polyp removed with cold snare, few small tics seen Ascending Colon: few small scattered tics noted Transverse Colon -normal Descending Colon:normal Sigmoid Colon: scattered small diverticula seen Rectum: Retroflexion with small internal hemorrhoids, grade I Anorectum - normal Colon preparation: [place] Bowel Preparation Scale Right colon; 2 Transverse colon: 2 Left colon; 2 (0 = Unprepared colon segment with mucosa not seen due to solid stool that cannot be cleared. 1 = Portion of mucosa of the colon segment seen, but other areas of the colon segment not well seen due to staining, residual stool and/or opaque liquid. 2 = Minor amount of residual staining, small fragments of stool and/or opaque liquid, but mucosa of colon segment seen well. 3 = Entire mucosa of colon segment seen well with no residual staining, small fragments of stool or opaque liquid) Impression and Post Procedure Diagnosis: Endoscopy Findings: gastritis hiatal hernia Colonoscopy Findings: polyp internal hemorrhoids diverticular disease Plan: Await Pathology results Repeat Colonoscopy in 5-7 years or earlier if clinically indicated High fiber diet leaflet avoid straining at stool, epsom salts and sitz bath, anusol supps or cream if h pylori pos then treat check compliance with PPI, consider changing Above findings were reviewed with the patient and relevant handouts were provided if indicated.
--- NOTE | 2022-06-16 11:53 | HO.ANESPROP2 ---
[facility] Active Problems Active Problems: All Active Problems (Updated 06/12/22 @ 09:55 by Mayela Magana RN) Tinnitus (Acute) Generalized anxiety disorder (Acute) TMJ (temporomandibular joint disorder) (Acute) Urinary incontinence (Acute) Low back pain (Acute) COVID-19 virus infection (Acute) PMDD (premenstrual dysphoric disorder) (Acute) Impaired fasting blood sugar (Acute) Vitamin D deficiency (Acute) Abdominal pain (Acute) Thyroid nodule (Acute) Pulmonary nodule (Acute) Obesity (BMI 30.0-34.9) (Acute) Elevated transaminase level (Acute) Long-term use of immunosuppressant medication (Acute) Hidradenitis suppurativa of left axilla (Acute) Urge incontinence (Acute) Hypercholesterolemia (Acute) Hypothyroid (Acute) Rheumatoid arthritis (Acute) GERD (gastroesophageal reflux disease) (Acute) Past Medical History Medical History COVID-19 vaccine administered Elevated transaminase level GERD (gastroesophageal reflux disease) Hidradenitis suppurativa of left axilla Hypercholesterolemia Hypothyroid Long-term use of immunosuppressant medication MRSA infection Pneumonia Rheumatoid arthritis Urge incontinence Family History Family History Mother Myocardial infarct Father Lung cancer Paternal Uncle Bladder cancer Paternal Aunt Stomach cancer Maternal Uncle Myocardial infarct Family history of problems with anesthesia: No Surgical History Surgical History H/O tubal ligation History of eye surgery Hx of tonsillectomy Inguinal hernia Plantar fasciitis, bilateral Ulnar neuropathy at elbow of left upper extremity History of Problems with Anesthesia: Yes Social History Social History Housing: House Are you a primary career services officer to a significant other at home: No Do you presently have visiting nurse or other home services: No Alcohol intake: current Alcohol intake frequency: a few times a week Patient Tobacco Use Status: Never used Tobacco e-Cigarette/Vaping Use: Never Used Second Hand Smoke Exposure: No Have you been hit, kicked, punched, or otherwise hurt by someone within the past year? 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 needs: No Hearing needs: No Vision needs: Yes Meds Allergies Allergy/AdvReac Type Severity Reaction Status Date / Time etanercept [From ENBREL] Allergy Intermediate RASH Verified 06/16/22 10:38 tofacitinib [From Xeljanz] AdvReac Intermediate high LFT Verified 06/16/22 10:38 Active Medications: Current Medications Lactated Ringer's (Lr) 1,000 mls @ 100 mls/hr IVCONT .Q10H RICO Last Admin: 06/16/22 11:06 Dose: 100 mls/hr Home Medications Medication Instructions Recorded Confirmed Last Taken Type multivitamin 1 tab PO DAILY 11/26/20 06/12/22 06/16/22 06:30 History cholecalciferol (vitamin D3) 25 50 mcg PO DAILY 12/23/21 06/12/22 06/16/22 06:30 History mcg (1,000 unit) capsule Exam Exam Date and Time: June 16, 2022 1153 Height,Weight and Vital Signs: Height 5 ft 5 in Weight 88.904 kg Last Vital Signs Temp 97.8 F 06/16/22 10:48 Pulse 59 06/16/22 11:18 Resp 16 06/16/22 11:18 BP 114/68 06/16/22 10:48 Pulse Ox 96 06/16/22 10:48 O2 Del Method Room Air 06/16/22 10:48 Airway Mallampati Class: II TM Dist: >3cm Neck ROM: Full Heart: RRR Lungs: Wheezing right Assessment and Plan Final Anesthetic Review Family History of Problems with Anesthesia: No History of Problems with Anesthesia: Yes ASA Class: II Final Preanesthetic Review: Meds/Allgs Chart Reviewed, Consent Obtained/Reviewed and Anes Risks/Benef Reviewed Patient Risk: Low Procedure Risk: Low Anesthetic Plan Anesthetic Plan: MAC: Disposition: Standard PACU
[2022-06-16 12:15] VITALS: BP 112/67; PULSE 90; RESP 18; TEMP 36.2; O2SAT 96
--- NOTE | 2022-06-16 12:25 | HO.POSTANES ---
Post Anesthesia Evaluation Post Anesthesia Evaluation Vital Signs: Vital Signs Temp Pulse Resp BP Pulse Ox O2 Del Method 06/16/22 12:15 97.2 F 90 18 112/67 96 Room Air 06/16/22 11:18 59 16 06/16/22 10:48 97.8 F 78 16 114/68 96 Room Air Anesthesia: Monitored Mental Status: Awake Pain Control: Satisfactory Nausea/Vomiting: None Hydration: Adequate Anesthesia-Related Issues: No Anes. Related Issues
[2022-06-16 12:28] VITALS: PULSE 81; RESP 20; TEMP 36.3
== END 2022-06-16 13:03 | disposition home or self-care (01) ==
PROVIDERS: PCP Internal Medicine; Visit Provider Internal Medicine Gastroenterology
PROC: (CPT 45385; principal; 2022-06-16 11:20)
DX: Z12.11 Encounter for screening for malignant neoplasm of colon (principal); D12.0 Benign neoplasm of cecum; K57.30 Diverticulosis of large intestine without perforation or abscess without bleeding; K64.0 First degree hemorrhoids; R13.10 Dysphagia, unspecified; K21.9 Gastro-esophageal reflux disease without esophagitis; K29.50 Unspecified chronic gastritis without bleeding; K44.9 Diaphragmatic hernia without obstruction or gangrene; R74.8 Abnormal levels of other serum enzymes; E78.00 Pure hypercholesterolemia, unspecified; E03.9 Hypothyroidism, unspecified; M06.9 Rheumatoid arthritis, unspecified; N39.41 Urge incontinence; Z86.14 Personal history of Methicillin resistant Staphylococcus aureus infection; Z79.899 Other long term (current) drug therapy; Z79.60 Long term (current) use of unspecified immunomodulators and immunosuppressants; Z88.8 Allergy status to other drugs, medicaments and biological substances; Z98.890 Other specified postprocedural states
CPT/HCPCS: 45385; 43249; 43239; 88305; 88342; 94640; C1726

== ENCOUNTER → 2022-06-30 11:01 | Outpatient (BNVA) | payer BC, SELFPAY | PROVIDERS: PCP Internal Medicine; Visit Provider Physician Assistant ==

== ENCOUNTER 2022-06-30 11:40 | Outpatient (REF) | payer BC, SELFPAY ==
[2022-06-30 14:11] LABS: MANUAL DIFF FLAG NO
[2022-06-30 14:28] LABS: Basophils Percent Auto 0.5 % (0-2); Eosinophils Absolute Auto 0.1 X10*3/uL (0.0-0.4); Eosinophils Percent Auto 1.7 % (0-4); Hematocrit 41.4 % (37.0-47.0); Hemoglobin 13.7 g/dl (12.0-16.0); Imm Gran Abs Auto 0.01 X10*3/uL (0.00-0.03); Imm Gran Pct Auto 0.2 % (0.0-0.4); Lymphocytes Absolute Auto 0.8 X10*3/uL (1.2-4.9); Lymphocytes Percent Auto 18.3 % (20-40); Mean Corpuscular HGB Conc 33.1 g/dl (31.0-35.0); Mean Corpuscular Hemoglobin 32.4 pg (27.0-33.0); Mean Corpuscular Volume 97.9 fL (80.0-98.0); Mean Platelet Volume 10.1 fL (9.4-12.3); Monocytes Absolute Auto 0.3 X10*3/uL (0.1-1.2); Neutrophils Absolute Auto 3.1 x10*3/uL (2.0-8.3); Neutrophils Percent Auto 73.3 % (45-73); Platelet Count 348 X10*3/uL (160-400); Red Blood Count 4.23 X10*6/uL (4.20-5.50); Red Cell Distribution Width 12.6 % (11.0-16.0); White Blood Count 4.2 X10*3/uL (4.8-10.8)
[2022-06-30 15:17] LABS: Erythrocyte Sedimentation Rate 12 MM/HR (0-20)
[2022-06-30 17:03] LABS: Alanine Aminotransferase 46 U/L (0-31); Aspartate Amino Transferase 34 U/L (5-31); C Reactive Protein < 0.10 mg/dL (< or = 0.50); Estimated Glomerular Filt Rate > 60
== END 2022-06-30 11:41 | disposition home or self-care (01) ==
LOC: HO.WFDLDS 11:40
PROVIDERS: Visit Provider Internal Medicine Rheumatology
DX: R74.01 Elevation of levels of liver transaminase levels (principal); K21.9 Gastro-esophageal reflux disease without esophagitis; D36.9 Benign neoplasm, unspecified site; Z79.899 Other long term (current) drug therapy
CPT/HCPCS: 36415; 82565; 84450; 84460; 85025; 85652; 86140

== ENCOUNTER 2022-08-24 07:35 | Outpatient (REF) | payer BC, SELFPAY | END 2022-08-24 07:36 | disposition home or self-care (01) | LOC: HO.WFDLDS 07:35 | PROVIDERS: Visit Provider Internal Medicine Rheumatology | DX: M06.09 Rheumatoid arthritis without rheumatoid factor, multiple sites (principal); R74.01 Elevation of levels of liver transaminase levels; Z79.899 Other long term (current) drug therapy | CPT/HCPCS: 36415; 82565; 84450; 84460; 85025; 85652; 86140 ==

== ENCOUNTER 2022-08-25 08:14 | Outpatient (AMB) | payer BC, SELFPAY ==
--- NOTE | 2022-08-25 08:16 | A.OFFVIS_ITS ---
Intake Vital Signs 08/25/22 08:18 Height 5 ft 5.5 in BMI Reason not done Patient refused/unable BP 124/72 Blood Pressure Location Lt brachial Position Sitting Pulse 80 Pulse Source Pulse Oximeter Temp 97.2 F Temp Source Skin Pulse Oximetry (%) 97 Comment Stated weight is 186.8lbs Intake Visit Reasons: 4 mnts f/u for RA Intake Note: Pt seen today for RA follow up. S/p tmj surgery on right side Monday 08/21, on abx for a week. C/o muscle spasms lower right back Communications Analyst Required: No Accompanied by: Self / Same As Patient Allergies etanercept [From ENBREL] Allergy (Intermediate, Verified 08/25/22 08:20) RASH tofacitinib [From Xeljanz] Adverse Reaction (Intermediate, Verified 08/25/22 08:20) high LFT HPI HPI Comments History of Present Illness Details The patient returns today for evaluation of her rheumatoid arthritis. She remains on 15 mg Rinvoq 5 days a week. We had cut back because of her slight elevation of transaminases and good control of her synovitis. The joints seem to remain comfortable. There is occasional discomfort in the left heel but no swelling. She has been on Liraglutide for weight loss and that has been affective for her. She is exercising a bit more. She had TMJ arthroplasty done on August 21. Looking at the surgical note there was some synovitis seen but much degenerative disease. They took a fat pad aspirate from the abdomen and apparently used that in the arthroplasty. The face is still numb. The procedure was done by Dr. Reyes in [place]. [facility] Medical History COVID-19 vaccine administered Elevated transaminase level GERD (gastroesophageal reflux disease) Hidradenitis suppurativa of left axilla Hypercholesterolemia Hypothyroid Long-term use of immunosuppressant medication MRSA infection Pneumonia Rheumatoid arthritis Urge incontinence Surgical History H/O tubal ligation History of esophagogastroduodenoscopy (EGD) History of eye surgery Hx of colonoscopy Hx of tonsillectomy Inguinal hernia Plantar fasciitis, bilateral Ulnar neuropathy at elbow of left upper extremity Family History (Updated 08/25/22 @ 08:22 by PATIENCE Velez) Mother Myocardial infarct Father Lung cancer Paternal Uncle Bladder cancer Paternal Aunt Stomach cancer Maternal Uncle Myocardial infarct Social History Housing: House Are you a primary elderly caregiver to a significant other at home: No Do you presently have visiting nurse or other home services: No Alcohol intake: current Alcohol intake frequency: a few times a week Patient Tobacco Use Status: Never used Tobacco e-Cigarette/Vaping Use: Never Used Second Hand Smoke Exposure: No Advance Directives Date on File: 09/17/20 Current occupational status: employed 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 Negative for appetite change, fever, chills, malaise and fatigue Card Details: Negative chest pain, edema and syncope Resp Details: Negative for SOB, cough and wheezing GI Details: Negative indigestion/heartburn, nausea, abdominal pain, bowel changes, diarrhea, constipation and bloody stool. Skin/Breast Details: Negative for itching, rash, hives, Raynaud's symptoms, sun sensitivity, and skin cancer Endo Details: Negative for polyuria and polydypsia Gage/Lymph Details: Negative for excessive bruising or bleeding. Physical Exam Vital Signs: Last Vital Signs Temp 97.2 F 08/25/22 08:18 Pulse 80 08/25/22 08:18 BP 124/72 08/25/22 08:18 Pulse Ox 97 08/25/22 08:18 APPEARANCE: Patient in no acute distress EYES no redness, pupils equal and reactive to light, eyelids normal NECK: Small puncture wound healing at the right TMJ where she had the surgery. No thyromegaly or masses, no adenopathy, trachea midline. EXTREMITIES: No edema, no calf tenderness, normal peripheral pulses. SKIN: No inflammatory or neoplastic lesions. Normal color and turgor JOINT EAM: Cervical Spine:.? Full range of motion without pain; no tenderness. Mild right TMJ tenderness; some thickening around the surgical site but no redness. Thoracic Spine:.? No scoliosis.? No tenderness on palpation. Lumbar Spine:.? Mild discomfort with flexion at about 60 degrees.? Most of this is in the left paraspinal region.? No tenderness.? ? ? Straight leg raising is negative. Chest Wall:.? No tenderness, swelling, increased warmth or erythema. Hands:.? Right:? No swelling or tenderness in the MCP or PIP joints.? All the joints have pain-free range of motion without swelling or tenderness.? Left:? Normal pain-free range of motion without tenderness, swelling, increased warmth or erythema. 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 Wrists:.? Normal pain-free range of motion without tenderness, swelling, increased warmth or erythema. Elbows:. Normal pain-free range of motion without tenderness, swelling, increased warmth or erythema. Shoulders:.?? Full range of motion without pain. No tenderness, weakness, swelling, increased warmth or erythema. Hips:.? Full range of motion without pain. Hip bursa:.? No tenderness. Knees:.?? Normal pain-free range of motion without tenderness, swelling, increased warmth or erythema.? There is no effusion or crepitation Ankles:.? Normal pain-free range of motion without tenderness, swelling, increased warmth or erythema. Feet:.? Right: Slight bony enlargement without tenderness at the 1st MTP. There is perhaps some minimal bony prominence over the dorsum of the foot. Rest of the joints have no tenderness or swelling. Left: Slight medial heel tenderness. There is also a slight prominence without tenderness over the instep. No other areas of without tenderness, swelling, increased warmth or erythema. ? Results Reviewed Results Reviewed: Laboratory Tests 08/24/22 08/24/22 08/24/22 07:35 07:35 07:35 WBC 6.5 Hgb 12.9 ESR 28 H Creatinine 0.91 AST 28 ALT 29 C-Reactive Protein 0.56 H Assessment & Plan Assessment & Plan (1) Long-term use of immunosuppressant medication: Code(s): Z79.899 - Other correction (current) drug therapy (2) Rheumatoid arthritis: Comment: Onset ~ 2003, RF positive. Treated with methotrexate and Remicade (failing response), changed to Humira ~2005 and combination helpful. 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 Off/on meds late [id number]. Enbrel stopped because of recurrent infections. Leflunomide caused skin rash, summer 2013. Orencia started 2013; methotrexate added 12/29 but stopped due to LFT elevations Xeljanz in place of Orencia Feb 2015 - helpful but further LFT elevations 02/03. Rinvoq in place of Xeljanz 01/2020 Code(s): M06.9 - Rheumatoid arthritis, unspecified Qualifiers: Rheumatoid arthritis location: multiple sites Rheumatoid factor presence: without rheumatoid factor Qualified Code(s): M06.09 - Rheumatoid arthritis without rheumatoid factor, multiple sites Plan It looks like the TMJ arthroplasty is healing. There still is anesthesia present so it is hard to know what symptomatic benefit she will receive. She does not have any peripheral synovitis elsewhere. 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 The LFTs have returned to normal probably a result of reducing the Rinvoq as well as her weight reduction. We will continue with the Rinvoq at 5 days a week. We will check lab work again before her next visit in about 4 months. I congratulated her on her efforts at weight reduction. Orders: Orders Alanine Aminotransferase Today M06.9 - Rheumatoid arthritis, unspecified, Z79.899 - Other terminal make up operator (current) drug therapy Aspartate Amino Transferase Today M06.9 - Rheumatoid arthritis, unspecified, Z79.899 - Other terminal make up operator (current) drug therapy Creatinine Today M06.9 - Rheumatoid arthritis, unspecified, Z79.899 - Other correction (current) drug therapy C Reactive Protein Today M06.9 - Rheumatoid arthritis, unspecified Complete Blood Count Auto Diff Today M06.9 - Rheumatoid arthritis, unspecified, Z79.899 - Other correction (current) drug therapy Erythrocyte Sedimentation Rate Today M06.9 - Rheumatoid arthritis, unspecified Coding Level of Care Code Est Pt Level 3 (81682) Diagnoses Long-term use of immunosuppressant medication Z79.899 Rheumatoid arthritis M06.09 Rheumatoid arthritis location: multiple sites Rheumatoid factor presence: without rheumatoid factor
[2022-08-25 08:18] VITALS: BP 124/72; PULSE 80; TEMP 36.2; O2SAT 97
== END 2022-08-25 08:42 | disposition home or self-care (01) ==
LOC: HO.RHE 08:14
PROVIDERS: PCP Internal Medicine; Visit Provider Internal Medicine Rheumatology
DX: M06.09 Rheumatoid arthritis without rheumatoid factor, multiple sites (principal); Z79.899 Other long term (current) drug therapy
CPT/HCPCS: 99213

== ENCOUNTER → 2022-08-25 08:14 | Outpatient (BNVA) | payer BC, SELFPAY | PROVIDERS: PCP Internal Medicine; Visit Provider Internal Medicine Rheumatology ==

== ENCOUNTER 2022-09-25 15:13 | Outpatient (AMB) | payer BC, SELFPAY ==
[2022-09-25 15:22] VITALS: BP 120/74; BMI 31.0
--- NOTE | 2022-09-25 15:22 | A.OFFVIS_ITS ---
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 Scribed for SULEMAN Jimenez by Ronna Wood biomedical equipment technician, on 09/25/2022 at 3:33 pm EST. Crop Or Livestock Tenant Farmer Required: No Information Interpreted: non-clinical & clinical Field Representative/Health Education: Field Representative/Health Education Present (Camelia Butler LAVERNE) Accompanied by: Self / Same As Patient Allergies etanercept [From ENBREL] Allergy (Intermediate, Verified 09/25/22 15:23) RASH tofacitinib [From Xeljanz] Adverse Reaction (Intermediate, Verified 09/25/22 15:23) high LFT Post menopausal: Yes HPI HPI Comments History of Present Illness Details She is a postmenopausal woman presenting for annual exam. She admits to eating healthy and tries to stay active with exercise. She is happy with recent weight loss of 21 lbs. Currently not sexually active. Denies vaginal itching and irritation. Denies family hx of breast, colon and ovarian cancer. Last pap smear 07/04/18. Last mammogram 11/11/21. PFSH Medical History COVID-19 vaccine administered Elevated transaminase level GERD (gastroesophageal reflux disease) Hidradenitis suppurativa of left axilla Hypercholesterolemia Hypothyroid Long-term use of immunosuppressant medication MRSA infection Pneumonia Rheumatoid arthritis Urge incontinence Surgical History H/O tubal ligation History of esophagogastroduodenoscopy (EGD) History of eye surgery Hx of colonoscopy Hx of tonsillectomy Inguinal hernia Plantar fasciitis, bilateral Ulnar neuropathy at elbow of left upper extremity Family History Mother Myocardial infarct Father Lung cancer Paternal Uncle Bladder cancer Paternal Aunt Stomach cancer Maternal Uncle Myocardial infarct Social History Housing: House Are you a primary memory care program director to a significant other at home: No Do you presently have visiting nurse or other home services: No Alcohol intake: current Alcohol intake frequency: a few times a week Patient Tobacco Use Status: Never used Tobacco e-Cigarette/Vaping Use: Never Used Second Hand Smoke Exposure: No Advance Directives Date on File: 09/17/20 Current occupational status: employed 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 Cognitive needs: No Hearing needs: No Vision needs: Yes Female Reproductive History Menstrual Menopause type: natural Total pregnancies: 2 Full term: 2 Number of Living Children: 2 Date of last pap smear: 07/04/18 History of abnormal pap smear: No Date of Mammogram: 11/11/21 History of abnormal mammogram: No Physical Exam Vital Signs: Last Vital Signs BP 120/74 09/25/22 15:22 BMI result Body Mass Index 31.0 Const General: cooperative, healthy appearing, no acute distress, well developed and alert Orientation/consciousness: patient oriented x3 HEENT Head: Yes normal to inspection Eyes General: appearance normal, both eyes and all related structures Neck Neck: Yes normal visual inspection Thyroid: Thyroid normal Chest Chest palpation & inspection: normal inspection of the chest Breast/axilla inspection: normal inspection of the breasts (no puckering, dimpling, peau de orange, retraction, discharge, masses) Breast/axilla palpation: normal palpation of the breasts Resp Effort & Inspection: normal respiratory effort GI Inspection: Yes normal to inspection Palpation (GI): Soft to palpation (to palpation) Rectal Exam - Female: deferred General: Yes bladder normal to inspection External Female Exam: normal external appearance and normal appearance of the urethra Speculum Exam - Vagina: normal appearance of the vagina, normal palpation and vagina atrophic Speculum Exam - Cervix: normal appearance of the cervix and normal palpation Bimanual exam- vagina & uterus: normal palpation and normal palpation Bimanual Exam- Adnexa, other: normal adnexae and no masses Skin General skin exam: no rashes or lesions noted Neuro General: patient oriented x3 Cognition (Neuro): normal cognition Extrem General: Yes normal to inspection Psych Attitude: cooperative Thought process: Normal thought process present Assessment & Plan Assessment & Plan (1) Encounter for well woman exam: Code(s): Z01.419 - Encounter for gynecological examination (general) (routine) without abnormal findings Plan: Discussed: Current recommendations for pap smears per ASCCP guidelines. Breast awareness and periodic self breast exams. Encouraged yearly mammograms. Maintaining a healthy lifestyle including a well balanced diet including Calcium and Vitamin D and routine exercise. Contact office with any PMB. All of her questions and concerns were addressed to the best of my ability RTO in 1 year for AG. Orders: Orders MM tomosynthesis screening BI Today Z12.31 - Encounter for screening mammogram for malignant neoplasm of breast Coding Level of Care Code Est Pt Prev Care 40-64y(26134) Diagnoses Encounter for well woman exam Z01.419
== END 2022-09-25 15:46 | disposition home or self-care (01) ==
LOC: HO.HWS 15:13
PROVIDERS: PCP Internal Medicine; Visit Provider Advanced Practice Midwife
DX: Z01.419 Encounter for gynecological examination (general) (routine) without abnormal findings (principal)
CPT/HCPCS: 99396

== ENCOUNTER → 2022-09-25 15:13 | Outpatient (BNVA) | payer BC, SELFPAY | PROVIDERS: PCP Internal Medicine; Visit Provider Advanced Practice Midwife ==

== ENCOUNTER 2022-11-27 15:19 | Outpatient (REF) | payer BC, SELFPAY ==
--- NOTE | ~2022-11-27 | MM_ITS ---
EXAMINATION: MM SCREENING DIGITAL BREAST TOMOSYNTHESIS, BILATERAL CLINICAL INFORMATION: Screening. Asymptomatic. COMPARISON: Mammography: This study is compared with prior exams dating back to 2021. TECHNIQUE: Digital breast tomosynthesis is performed in both the craniocaudal and mediolateral oblique views along with computer-aided detection (CAD). Synthesized 2D images are generated from the tomosynthesis. FINDINGS: The breasts are almost entirely fatty (ACR BI-RADS breast composition Category a). There are no significant masses, abnormal calcifications, or other abnormalities. MM/MM tomosynthesis screening BI IMPRESSION: No mammographic evidence of malignancy. ASSESSMENT: BI-RADS BI-RADS 1 - Negative RECOMMENDATION: Routine annual mammography screening. 1 year F/U This examination should not preclude the clinical evaluation of a suspicious palpable abnormality. This patient's information was entered into a reminder system with a target due date for their next mammogram.
== END 2022-11-27 15:20 | disposition home or self-care (01) ==
LOC: HO.MAMMO 15:19
PROVIDERS: PCP Internal Medicine; Visit Provider Internal Medicine
DX: Z12.31 Encounter for screening mammogram for malignant neoplasm of breast (principal)
CPT/HCPCS: 77063; 77067

== ENCOUNTER → 2022-11-27 15:30 | Outpatient (BNV) | payer BC, SELFPAY | PROVIDERS: PCP Internal Medicine; Visit Provider Radiology Diagnostic Radiology | DX: Z12.31 Encounter for screening mammogram for malignant neoplasm of breast (principal) | CPT/HCPCS: 77063; 77067 ==

== ENCOUNTER 2022-11-27 16:00 | Outpatient (REF) | payer BC, SELFPAY ==
[2022-11-27 16:19] LABS: MANUAL DIFF FLAG NO
[2022-11-27 16:34] LABS: Basophils Absolute Auto 0.1 X10*3/uL (0.0-0.2); Basophils Percent Auto 1.1 % (0-2); Eosinophils Percent Auto 0.8 % (0-4); Hematocrit 40.5 % (37.0-47.0); Hemoglobin 13.3 g/dl (12.0-16.0); Imm Gran Abs Auto 0.02 X10*3/uL (0.00-0.03); Imm Gran Pct Auto 0.4 % (0.0-0.4); Lymphocytes Absolute Auto 2.2 X10*3/uL (1.2-4.9); Lymphocytes Percent Auto 46.5 % (20-40); Mean Corpuscular HGB Conc 32.8 g/dl (31.0-35.0); Mean Corpuscular Hemoglobin 31.5 pg (27.0-33.0); Mean Platelet Volume 9.4 fL (9.4-12.3); Monocytes Absolute Auto 0.5 X10*3/uL (0.1-1.2); Monocytes Percent Auto 10.6 % (2-11); Neutrophils Absolute Auto 1.9 x10*3/uL (2.0-8.3); Neutrophils Percent Auto 40.6 % (45-73); Platelet Count 359 X10*3/uL (160-400); Red Blood Count 4.22 X10*6/uL (4.20-5.50); Red Cell Distribution Width 12.9 % (11.0-16.0); White Blood Count 4.7 X10*3/uL (4.8-10.8)
[2022-11-27 16:37] LABS: Estimated Average Glucose 111 mg/dL; Hemoglobin A1c % 5.5 % (<6.0)
[2022-11-27 17:09] LABS: Alanine Aminotransferase 45 U/L (0-31); Albumin Level 4.5 g/dL (3.5-5.0); Alkaline Phosphatase 71 U/L (39-117); Anion Gap 15 (12-20); Aspartate Amino Transferase 33 U/L (5-31); Bilirubin Total 0.3 mg/dL (0.0-1.0); Blood Urea Nitrogen 13 mg/dL (9-16); C Reactive Protein 0.13 mg/dL (< or = 0.50); Calcium 9.8 mg/dL (8.4-10.2); Carbon Dioxide 27 mmol/L (22-29); Chloride 104 mmol/L (96-108); Cholesterol 305 mg/dL (<200); Estimated Glomerular Filt Rate > 60; Glucose Random 87 mg/dL (60-115); HDL Cholesterol 66 mg/dL (>40); LDL Cholesterol Calculated 208 mg/dL (<100); Potassium 4.4 mmol/L (3.3-5.1); Sodium 142 mmol/L (135-145); Total Protein 7.9 g/dL (6.5-8.0); Triglycerides 155 mg/dL (<150)
[2022-11-27 17:14] LABS: Free T4 (Free Thyroxine) 0.77 ng/dL (0.71-1.85); Thyroid Stimulating Hormone 1.25 uIU/mL (0.32-4.0)
[2022-11-27 17:18] LABS: Erythrocyte Sedimentation Rate 12 MM/HR (0-20)
[2022-11-27 17:30] LABS: Folate 12.7 ng/mL (> or = 4.0); Vitamin B12 445 pg/mL (200-900)
[2022-11-27 20:13] LABS: Alanine Aminotransferase 44 U/L (0-31); Aspartate Amino Transferase 33 U/L (5-31); C Reactive Protein 0.13 mg/dL (< or = 0.50)
== END 2022-11-27 16:01 | disposition home or self-care (01) ==
LOC: HO.LAB 16:00
PROVIDERS: Internal Medicine Rheumatology; PCP Internal Medicine; Visit Provider Internal Medicine
DX: E03.9 Hypothyroidism, unspecified (principal); M06.09 Rheumatoid arthritis without rheumatoid factor, multiple sites; E78.00 Pure hypercholesterolemia, unspecified; R73.01 Impaired fasting glucose; Z79.899 Other long term (current) drug therapy
CPT/HCPCS: 36415; 80053; 80061; 82306; 82607; 82746; 83036; 84439; 84443; 84450; 84460; 85025; 85652; 86140

== ENCOUNTER 2022-12-21 17:16 | Outpatient (AMB) | payer BC, SELFPAY ==
[2022-12-21 17:22] VITALS: BP 108/66; PULSE 67; O2SAT 97; BMI 31.5
--- NOTE | 2022-12-21 17:22 | MHC.PC.OV ---
Vital Signs 12/21/22 17:22 Height 5 ft 5.5 in Weight 192 lb 8 oz BMI 31.5 BP 108/66 Blood Pressure Location Lt brachial Position Sitting Pulse 67 Pulse Source Pulse Oximeter Pulse Oximetry (%) 97 Oxygen Delivery Method Room Air Intake Visit Reasons: physical Intake Note: Patient is here today for a physical. Binding Dyer Required: No Accompanied by: Self / Same As Patient Allergies etanercept [From ENBREL] Allergy (Intermediate, Verified 12/21/22 17:23) RASH tofacitinib [From Xeljanz] Adverse Reaction (Intermediate, Verified 12/21/22 17:23) high LFT Medication List - Last Reconciled 12/21/22 by Etelvina Sears MD cholecalciferol (vitamin D3) 50 mcg PO DAILY citalopram 20 mg PO DAILY 90 days levothyroxine 50 mcg PO DAILY oxybutynin chloride ER 5 mg PO DAILY 90 days pantoprazole 40 mg PO BID pen needle, diabetic (BD Ultra-Fine Micro Pen Needle) daily rosuvastatin 5 mg PO DAILY upadacitinib ER (Rinvoq) 15 mg PO DAILY 30 days Tobacco use date assessed: 12/21/22 Dental Screening Dental Screen Date: 12/21/22 Did you have a dental visit in the last 12 months?: Yes Did you have a dental problem in the last 6 months where you did not have access to dental care?: No Was dental information given to patient?: Patient has dentist HPI physical HPI Details 57-year-old obese female with a history of rheumatoid arthritis GERD hypothyroidism hypercholesterolemia impaired glucose tolerance insomnia coming in for physical exam. Last seen last year. Patient's mammogram is due, colonoscopy is up-to-date bone density is up-to-date. With rheumatoid arthritis patient to follow-up with Rheumatology seen in August 2022. On Rinvoq Patient did have a TMJ arthroplasty. Patient also follows up with Gastroenterology GERD has pantoprazole 40 mg twice a day and for the colonoscopy surveillance of 5 years. December 2021 had abdominal pain and a CT scan done incidentally found a 5 mm left lower lobe nodule fatty liver. Patient also had an ultrasound of the thyroid noted left upper pole nodule subcentimeter. [facility] Medical History (Updated 12/21/22 @ 17:51 by Etelvina Sears MD) Pneumonia Elevated transaminase level Long-term use of immunosuppressant medication COVID-19 vaccine administered Hidradenitis suppurativa of left axilla Urge incontinence Hypercholesterolemia MRSA infection GERD (gastroesophageal reflux disease) Rheumatoid arthritis Hypothyroid Surgical History (Updated 12/21/22 @ 17:46 by Etelvina Sears MD) TMJ (sprain of temporomandibular joint) History of esophagogastroduodenoscopy (EGD) Hx of colonoscopy History of eye surgery Ulnar neuropathy at elbow of left upper extremity Plantar fasciitis, bilateral H/O tubal ligation Hx of tonsillectomy Inguinal hernia Family History Mother Myocardial infarct Father Lung cancer Paternal Uncle Bladder cancer Paternal Aunt Stomach cancer Maternal Uncle Myocardial infarct Social History (Updated 12/21/22 @ 17:47 by Etelvina Sears MD) Housing: House Are you a primary care professional to a significant other at home: No Do you presently have visiting nurse or other home services: No Alcohol intake: current Alcohol intake frequency: a few times a week Patient Tobacco Use Status: Never used Tobacco e-Cigarette/Vaping Use: Never Used Second Hand Smoke Exposure: No Advance Directives Date on File: 09/17/20 Current occupational status: employed 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 Cristhian Olivo, Xiao Vines, Augustine Adams and colleagues, with an educational jenna from [employer]. Review of Systems Const Denies poor appetite and Denies weakness Eyes Denies no additional complaints ENT Reports Normal hearing present, Denies dizziness, Denies nasal congestion, Denies tinnitus and Denies sore throat Card Denies chest pain, Denies syncope, Denies rapid heart rate and Denies dyspnea Resp Denies cough and Denies dyspnea GI Denies change in stool character, Reports constipation, Denies diarrhea, Denies nausea and Denies vomiting Denies urinary frequency, Denies difficulty voiding and Denies dysuria Neuro Reports Normal hearing present, Denies confusion, Denies dizziness, Denies syncope and Denies weakness Psych Denies confusion Physical exam (Primary Care) Vital Signs: Last Vital Signs Pulse 67 12/21/22 17:22 BP 108/66 12/21/22 17:22 Pulse Ox 97 12/21/22 17:22 Oxygen Delivery Method Room Air 12/21/22 17:22 BMI result Body Mass Index 31.5 Tobacco/Smoking Status: Tobacco use Status Tobacco use date assessed 12/21/22 12/21/22 17:25 Patient Tobacco Use Status Never used Tobacco 12/21/22 17:25 e-Cigarette/Vaping Use Never Used 12/21/22 17:25 Thrive Assessment: Date of Thrive Assessment Date Thrive assessed 03/10/21 12/21/22 17:25 Const General: No confusion Orientation/consciousness: No confusion HENMT Head: Yes normocephalic Ears: external ears normal and TM's normal bilaterally Face and sinus: Yes normal facial exam Mouth: moist mucous membranes Throat: Yes tonsils normal Eyes Conjunctivae: conjunctivae normal Pupils: Equal, round and reactive pupils present and Pupil accommodation reflex normal Direct Ophthalmoscopy: normal light reflex Neck Neck: No lymphadenopathy Thyroid: Thyroid normal Chest Chest palpation & inspection: normal inspection of the chest Resp Effort & Inspection: normal respiratory effort and no audible wheezes Auscultation: clear to auscultation bilaterally, no crackles, no wheezes and lung sounds not diminished Cardio Rate: regular rate Rhythm: regular rhythm Peripheral pulses: radial pulses present and dorsalis pedis present GI Palpation (GI): no masses Auscultation: normal bowel sounds and normoactive bowel sounds Rectal Exam - Female: deferred Skin General skin exam: no rashes or lesions noted Rashes: no rashes Neuro General: No confusion Cranial nerves: Yes Equal, round and reactive pupils present and Yes Normal hearing present Cognition (Neuro): normal cognition Gait exam (Neuro): Normal gait present Motor exam (neuro): 5/5 motor strength present throughout Deep tendon reflexes (DTR's): Right brachioradialis reflex intensity grade: 2+, Left brachioradialis reflex intensity grade: 2+, Right patellar reflex intensity grade: 2+ and Left patellar reflex intensity grade: 2+ Extrem General: No edema Assessment and Plan Assessment & Plan (1) Annual physical exam: Code(s): Z00.00 - Encounter for general adult medical examination without abnormal findings (2) Rheumatoid arthritis: Comment: Onset ~ 2003, RF positive. Treated with methotrexate and Remicade (failing response), changed to Humira ~2005 and combination helpful. 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 Off/on meds late [id number]. Enbrel stopped because of recurrent infections. Leflunomide caused skin rash, summer 2013. Orencia started 2013; methotrexate added 12/29 but stopped due to LFT elevations Xeljanz in place of Orencia Feb 2015 - helpful but further LFT elevations 02/03. Rinvoq in place of Xeljanz 01/2020 Code(s): M06.9 - Rheumatoid arthritis, unspecified Qualifiers: Rheumatoid arthritis location: multiple sites Rheumatoid factor presence: without rheumatoid factor Qualified Code(s): M06.09 - Rheumatoid arthritis without rheumatoid factor, multiple sites Plan: Patient follows up with Rheumatology on Rinvoq (3) GERD (gastroesophageal reflux disease): Comment: EGD with dilation Small sliding hiatal hernia Reflux precautions Continue pantoprazole 40 mg b.i.d. within try to wean back to pantoprazole 40 mg daily Call with progress, if need to change PPI may do so Code(s): K21.9 - Gastro-esophageal reflux disease without esophagitis Qualifiers: Esophagitis presence: without esophagitis Qualified Code(s): K21.9 - Gastro-esophageal reflux disease without esophagitis Plan: Avoid the foods that causes that usually spicy foods, tomato products, juices, coffee, soda and foods that your sensitive to. After eating do not lie down, allow 3-4 hours before in lie down. And keep the head of bed above 30 degrees to avoid the acid from going up. On pantoprazole 40 mg twice a day follows up with gastro (4) Hypothyroid: Code(s): E03.9 - Hypothyroidism, unspecified Qualifiers: Hypothyroidism type: acquired Qualified Code(s): E03.9 - Hypothyroidism, unspecified Plan: Continue with thyroid medication (5) Hypercholesterolemia: Code(s): E78.00 - Pure hypercholesterolemia, unspecified Plan: Avoid fried foods, chicken skin, eggs, butter margarine, pastries and meat. Be it pork or beef they have a lot of cholesterol LDL goal of less than 130 and triglyceride of less than 150 patient on rosuvastatin 5 mg once a day (6) Obesity (BMI 30.0-34.9): Code(s): E66.9 - Obesity, unspecified Plan: Diet and exercise (7) Pulmonary nodule: Comment: CT December 2021 Code(s): R91.1 - Solitary pulmonary nodule Plan: CT scan incidentally found December 2021 (8) Generalized anxiety disorder: Code(s): F41.1 - Generalized anxiety disorder Plan: Continue with citalopram (9) Actinic keratoses: Code(s): L57.0 - Actinic keratosis Orders: Referrals Dermatology Referral L57.0 - Actinic keratosis Medications: Changed From pantoprazole 40 mg PO BID 60 tabs 2RF K21.9 - Gastro-esophageal reflux disease without esophagitis To pantoprazole 40 mg PO DAILY 90 tabs 2RF K21.9 - Gastro-esophageal reflux disease without esophagitis Coding Level of Care Code Est Pt Prev Care 40-64y(98757) Diagnoses Annual physical exam Z00.00 Rheumatoid arthritis of multiple sites with negative rheumatoid factor M06.09 Rheumatoid arthritis location: multiple sites Rheumatoid factor presence: without rheumatoid factor Gastroesophageal reflux disease without esophagitis K21.9 Esophagitis presence: without esophagitis Acquired hypothyroidism E03.9 Hypothyroidism type: acquired Hypercholesterolemia E78.00 Obesity (BMI 30.0-34.9) E66.9 Pulmonary nodule R91.1 Generalized anxiety disorder F41.1 Actinic keratoses L57.0
== END 2022-12-21 17:59 | disposition home or self-care (01) ==
LOC: HO.HMGH 17:16
PROVIDERS: PCP Internal Medicine; Visit Provider Internal Medicine
DX: Z00.00 Encounter for general adult medical examination without abnormal findings (principal); M06.09 Rheumatoid arthritis without rheumatoid factor, multiple sites; K21.9 Gastro-esophageal reflux disease without esophagitis; E03.9 Hypothyroidism, unspecified; E78.00 Pure hypercholesterolemia, unspecified; R91.1 Solitary pulmonary nodule; F41.1 Generalized anxiety disorder; L57.0 Actinic keratosis
CPT/HCPCS: 99396

== ENCOUNTER 2022-12-25 09:58 | Outpatient (REF) | payer BC, SELFPAY ==
[2022-12-25 10:19] LABS: MANUAL DIFF FLAG NO
[2022-12-25 11:06] LABS: Basophils Percent Auto 0.6 % (0-2); Eosinophils Absolute Auto 0.1 X10*3/uL (0.0-0.4); Eosinophils Percent Auto 0.7 % (0-4); Hematocrit 41.4 % (37.0-47.0); Hemoglobin 13.7 g/dl (12.0-16.0); Imm Gran Abs Auto 0.03 X10*3/uL (0.00-0.03); Imm Gran Pct Auto 0.4 % (0.0-0.4); Lymphocytes Percent Auto 14.2 % (20-40); Mean Corpuscular HGB Conc 33.1 g/dl (31.0-35.0); Mean Corpuscular Hemoglobin 31.4 pg (27.0-33.0); Mean Platelet Volume 9.7 fL (9.4-12.3); Monocytes Absolute Auto 0.6 X10*3/uL (0.1-1.2); Monocytes Percent Auto 8.3 % (2-11); Neutrophils Absolute Auto 5.5 x10*3/uL (2.0-8.3); Neutrophils Percent Auto 75.8 % (45-73); Platelet Count 340 X10*3/uL (160-400); Red Blood Count 4.36 X10*6/uL (4.20-5.50); Red Cell Distribution Width 12.7 % (11.0-16.0); White Blood Count 7.3 X10*3/uL (4.8-10.8)
[2022-12-25 11:42] LABS: Alanine Aminotransferase 27 U/L (0-31); Aspartate Amino Transferase 25 U/L (5-31); C Reactive Protein 0.74 mg/dL (< or = 0.50); Estimated Glomerular Filt Rate > 60
[2022-12-25 12:02] LABS: Erythrocyte Sedimentation Rate 12 MM/HR (0-20)
== END 2022-12-25 09:59 | disposition home or self-care (01) ==
LOC: HO.LAB 09:58
PROVIDERS: PCP Internal Medicine; Visit Provider Internal Medicine Rheumatology
DX: M06.9 Rheumatoid arthritis, unspecified (principal); Z79.899 Other long term (current) drug therapy
CPT/HCPCS: 36415; 82565; 84450; 84460; 85025; 85652; 86140

== ENCOUNTER 2022-12-29 08:02 | Outpatient (AMB) | payer BC, SELFPAY ==
--- NOTE | 2022-12-29 08:03 | A.OFFVIS_ITS ---
Intake Vital Signs 12/29/22 08:05 Height 5 ft 5.5 in Weight 191 lb 9.39 oz BMI 31.4 BMI Reason not done Patient refused/unable BP 120/62 Blood Pressure Location Lt brachial Position Sitting Pulse 73 Pulse Source Pulse Oximeter Temp 97.0 F Temp Source Skin Pulse Oximetry (%) 96 Oxygen Delivery Method Room Air Comment 191lbs this AM, per pt Intake Visit Reasons: ra Intake Note: Patient presents today to follow up on RA. Eyelet Cutter Required: No Accompanied by: Self / Same As Patient Allergies etanercept [From ENBREL] Allergy (Intermediate, Verified 12/29/22 08:04) RASH tofacitinib [From Xeljanz] Adverse Reaction (Intermediate, Verified 12/29/22 08:04) high LFT Medication List - Last Reconciled 12/29/22 by Brendon Gale MD cholecalciferol (vitamin D3) 50 mcg PO DAILY citalopram 20 mg PO DAILY 90 days levothyroxine 50 mcg PO DAILY oxybutynin chloride ER 5 mg PO DAILY 90 days pantoprazole 40 mg PO DAILY rosuvastatin 5 mg PO DAILY upadacitinib ER (Rinvoq) 15 mg PO DAILY 30 days HPI HPI Comments History of Present Illness Details The patient returns for evaluation of her rheumatoid arthritis. She remains on Rinvoq 15 mg 5 days a week, she skips and Saturdays. We had reduced the frequency because of mild elevation in LFTs. That seems to have not made any difference in joint symptoms in that she is doing quite well. The exception is the right TMJ. She had surgery on that this summer. It improved a bit but there still is some pain, grinding and popping. Further evaluation she thinks with MRI is planned in the next few weeks. 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 She also has joined a gym. There have been no problems with her hidradenitis recently. She takes occasional acetaminophen for the TMJ pain and rarely takes an ibuprofen. [facility] Medical History (Updated 12/29/22 @ 08:19 by Brendon Gale MD) Pneumonia Elevated transaminase level Long-term use of immunosuppressant medication COVID-19 vaccine administered Hidradenitis suppurativa of left axilla Urge incontinence Hypercholesterolemia MRSA infection GERD (gastroesophageal reflux disease) Rheumatoid arthritis Hypothyroid Surgical History (Updated 12/21/22 @ 17:46 by Etelvina Sears MD) TMJ (sprain of temporomandibular joint) History of esophagogastroduodenoscopy (EGD) Hx of colonoscopy History of eye surgery Ulnar neuropathy at elbow of left upper extremity Plantar fasciitis, bilateral H/O tubal ligation Hx of tonsillectomy Inguinal hernia Family History Mother Myocardial infarct Father Lung cancer Paternal Uncle Bladder cancer Paternal Aunt Stomach cancer Maternal Uncle Myocardial infarct Social History (Updated 12/21/22 @ 17:47 by Etelvina Sears MD) Housing: House Are you a primary hospice spiritual care coordinator to a significant other at home: No Do you presently have visiting nurse or other home services: No Alcohol intake: current Alcohol intake frequency: a few times a week Patient Tobacco Use Status: Never used Tobacco e-Cigarette/Vaping Use: Never Used Second Hand Smoke Exposure: No Advance Directives Date on File: 09/17/20 Current occupational status: employed 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 Negative for vision change, dry eyes, and dizziness ENT Details: Negative for hearing change, tinnitus, oral ulcer, nose bleeds and oral dryness. Card Details: Negative chest pain, edema and syncope Resp Details: Negative for SOB, cough and wheezing GI Details: Negative indigestion/heartburn, nausea, abdominal pain, bowel changes, diarrhea, constipation and bloody stool. Skin/Breast Details: Negative for itching, rash, hives, Raynaud's symptoms, sun sensitivity, and skin cancer Endo Details: Negative for polyuria and polydypsia Gage/Lymph Details: Negative for excessive bruising or bleeding. Physical Exam Vital Signs: Last Vital Signs Temp 97.0 F 12/29/22 08:05 Pulse 73 12/29/22 08:05 BP 120/62 12/29/22 08:05 Pulse Ox 96 12/29/22 08:05 Oxygen Delivery Method Room Air 12/29/22 08:05 BMI result Body Mass Index 13.0 APPEARANCE: Patient in no acute distress EYES no redness, pupils equal and reactive to light, eyelids normal EARS: External ear normal, canal clear and tympanic membrane normal. Mild tenderness over the right TMJ. No redness or swelling. NECK: No thyromegaly or masses, no adenopathy, trachea midline. No parotid swelling or tenderness. EXTREMITIES: No edema, no calf tenderness, normal peripheral pulses. JOINT EXAM:?? Cervical Spine:.? Full range of motion without pain; no tenderness. Mild right TMJ tenderness; no swelling or redness. Thoracic Spine:.? No scoliosis.? No tenderness on palpation. Lumbar Spine:.? Mild discomfort with flexion at about 60 degrees.? Most of this is in the left paraspinal region.? No tenderness.? ? ? Straight leg raising is negative. Chest Wall:.? No tenderness, swelling, increased warmth or erythema. Hands:.? Right:? No swelling or tenderness in the MCP or PIP joints.? All the joints have pain-free range of motion without swelling or tenderness.? Left:? Normal pain-free range of motion without tenderness, swelling, increased warmth or erythema. Able to make a full fist and has a good social science teacher strength. Wrists:.? Normal pain-free range of motion without tenderness, swelling, increased warmth or erythema. Elbows:. Normal pain-free range of motion without tenderness, swelling, i ncreased warmth or erythema. Shoulders:.?? Full range of motion without pain. No tenderness, weakness, swelling, increased warmth or erythema. Hips:.? Full range of motion without pain. Hip bursa:.? No tenderness. Knees:?? Normal pain-free range of motion without tenderness, swelling, increased warmth or erythema.? There is no effusion or crepitation Ankles:? Normal pain-free range of motion without tenderness, swelling, increased warmth or erythema. Feet:? Right: Slight bony enlargement without tenderness at the 1st MTP. There is perhaps some minimal bony prominence over the dorsum of the foot. The rest of the joints have no tenderness or swelling. Left: Slight medial heel tenderness. There is also a slight prominence without tenderness over the instep. No other areas of without tenderness, swelling, increased warmth or erythema. Results Reviewed Results Reviewed: Laboratory Tests 11/27/22 12/25/22 12/25/22 16:16 10:17 10:17 WBC 7.3 Hgb 13.7 ESR 12 Creatinine 0.88 AST 33 H 25 ALT 44 H 27 C-Reactive Protein 0.74 H Assessment & Plan Assessment & Plan (1) TMJ (temporomandibular joint disorder): Comment: August 2022 right TMJ arthroplasty by Dr. 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 Treated with methotrexate and Remicade (failing response), changed to Humira ~2005 and combination helpful. 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 Off/on meds late [id number]. Enbrel stopped because of recurrent infections. Leflunomide caused skin rash, summer 2013. Orencia started 2013; methotrexate added 12/29 but stopped due to LFT elevations Xeljanz in place of Orencia Feb 2015 - helpful but further LFT elevations 02/03. Rinvoq in place of Xeljanz 01/2020 - doses at 15 mg 5 days a week Code(s): M06.9 - Rheumatoid arthritis, unspecified Qualifiers: Rheumatoid arthritis location: multiple sites Rheumatoid factor presence: without rheumatoid factor Qualified Code(s): M06.09 - Rheumatoid arthritis without rheumatoid factor, multiple sites Plan Rheumatoid arthritis with good control of synovitis with current treatment. Additionally there are no lesions of hidradenitis recently. The LFTs have improved, presumably related to her weight loss, exercising, and slight reduction in the Rinvoq dose. We will continue with that medication. She will follow-up with the jaw surgeon about the TMJ pain. She says they may consider a joint replacement. Lab work will be rechecked before the next visit in about 4 months. Orders: Orders C Reactive Protein Today M06.9 - Rheumatoid arthritis, unspecified Alanine Aminotransferase Today M06.9 - Rheumatoid arthritis, unspecified, Z79.899 - Other middle or intermediate school principal (current) drug therapy Aspartate Amino Transferase Today M06.9 - Rheumatoid arthritis, unspecified, Z79.899 - Other middle or intermediate school principal (current) drug therapy Erythrocyte Sedimentation Rate Today M06.9 - Rheumatoid arthritis, unspecified Complete Blood Count Auto Diff Today M06.9 - Rheumatoid arthritis, unspecified, Z79.899 - Other middle or intermediate school principal (current) drug therapy Creatinine Today M06.9 - Rheumatoid arthritis, unspecified, Z79.899 - Other middle or intermediate school principal (current) drug therapy Coding Level of Care Code Est Pt Level 3 (31435) Diagnoses TMJ (temporomandibular joint disorder) M26.609 Long-term use of immunosuppressant medication Z79.899 Rheumatoid arthritis of multiple sites with negative rheumatoid factor M06.09 Rheumatoid arthritis location: multiple sites Rheumatoid factor presence: without rheumatoid factor
[2022-12-29 08:05] VITALS: BP 120/62; PULSE 73; TEMP 36.1; O2SAT 96; BMI 31.4
== END 2022-12-29 08:24 | disposition home or self-care (01) ==
PROVIDERS: PCP Internal Medicine; Visit Provider Internal Medicine Rheumatology
DX: M26.609 Unspecified temporomandibular joint disorder, unspecified side (principal); Z79.899 Other long term (current) drug therapy; M06.09 Rheumatoid arthritis without rheumatoid factor, multiple sites
CPT/HCPCS: 99213

== ENCOUNTER → 2022-12-29 08:02 | Outpatient (BNVA) | payer BC, SELFPAY | PROVIDERS: PCP Internal Medicine; Visit Provider Internal Medicine Rheumatology ==

== ENCOUNTER 2023-05-04 16:54 | Outpatient (REF) | payer BC, SELFPAY ==
[2023-05-04 17:09] LABS: MANUAL DIFF FLAG NO
[2023-05-04 17:40] LABS: Basophils Absolute Auto 0.1 X10*3/uL (0.0-0.2); Basophils Percent Auto 0.8 % (0-2); Eosinophils Absolute Auto 0.1 X10*3/uL (0.0-0.4); Eosinophils Percent Auto 1.2 % (0-4); Hematocrit 40.7 % (37.0-47.0); Hemoglobin 13.8 g/dl (12.0-16.0); Imm Gran Abs Auto 0.01 X10*3/uL (0.00-0.03); Imm Gran Pct Auto 0.2 % (0.0-0.4); Lymphocytes Absolute Auto 1.6 X10*3/uL (1.2-4.9); Mean Corpuscular HGB Conc 33.9 g/dl (31.0-35.0); Mean Corpuscular Hemoglobin 31.6 pg (27.0-33.0); Mean Corpuscular Volume 93.1 fL (80.0-98.0); Mean Platelet Volume 9.8 fL (9.4-12.3); Monocytes Absolute Auto 0.6 X10*3/uL (0.1-1.2); Monocytes Percent Auto 8.8 % (2-11); Neutrophils Absolute Auto 4.2 x10*3/uL (2.0-8.3); Platelet Count 358 X10*3/uL (160-400); Red Blood Count 4.37 X10*6/uL (4.20-5.50); Red Cell Distribution Width 13.2 % (11.0-16.0); White Blood Count 6.5 X10*3/uL (4.8-10.8)
[2023-05-04 18:20] LABS: Erythrocyte Sedimentation Rate 9 MM/HR (0-20)
[2023-05-04 18:24] LABS: C Reactive Protein < 0.10 mg/dL (< or = 0.50)
[2023-05-04 18:26] LABS: Alanine Aminotransferase 88 U/L (0-31); Aspartate Amino Transferase 70 U/L (5-31)
== END 2023-05-04 16:55 | disposition home or self-care (01) ==
LOC: HO.LAB 16:54
PROVIDERS: PCP Internal Medicine; Visit Provider Internal Medicine Rheumatology
DX: M06.9 Rheumatoid arthritis, unspecified (principal); Z79.899 Other long term (current) drug therapy
CPT/HCPCS: 36415; 84450; 84460; 85025; 85652; 86140

== ENCOUNTER 2023-05-07 06:06 | Outpatient (REF) | payer BC, SELFPAY ==
[2023-05-07 08:46] LABS: Alanine Aminotransferase 80 U/L (0-31); Albumin Level 4.1 g/dL (3.5-5.0); Alkaline Phosphatase 75 U/L (39-117); Anion Gap 12 (12-20); Aspartate Amino Transferase 47 U/L (5-31); Bilirubin Total 0.2 mg/dL (0.0-1.0); Blood Urea Nitrogen 15 mg/dL (9-16); Calcium 9.1 mg/dL (8.4-10.2); Carbon Dioxide 24 mmol/L (22-29); Chloride 108 mmol/L (96-108); Cholesterol 194 mg/dL (<200); Estimated Glomerular Filt Rate > 60; Glucose Random 116 mg/dL (60-115); HDL Cholesterol 63 mg/dL (>40); LDL Cholesterol Calculated 111 mg/dL (<100); Potassium 4.2 mmol/L (3.3-5.1); Sodium 140 mmol/L (135-145); Total Protein 7.4 g/dL (6.5-8.0); Triglycerides 103 mg/dL (<150)
== END 2023-05-07 06:07 | disposition home or self-care (01) ==
LOC: HO.LAB 06:06
PROVIDERS: PCP Internal Medicine; Visit Provider Internal Medicine
DX: M26.609 Unspecified temporomandibular joint disorder, unspecified side (principal); M06.09 Rheumatoid arthritis without rheumatoid factor, multiple sites; Z79.899 Other long term (current) drug therapy; E78.00 Pure hypercholesterolemia, unspecified
CPT/HCPCS: 36415; 80053; 80061

== ENCOUNTER 2023-05-07 14:39 | Outpatient (AMB) | payer BC, SELFPAY ==
--- NOTE | 2023-05-07 14:40 | MHC.OFFVIS ---
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 Gale, presents today for follow up and test results. Electronic Musical Instrument Repairer Required: No Accompanied by: Self / Same As Patient Allergies etanercept [From ENBREL] Allergy (Intermediate, Verified 05/07/23 14:40) RASH tofacitinib [From Xeljanz] Adverse Reaction (Intermediate, Verified 05/07/23 14:40) high LFT HPI HPI Comments History of Present Illness Details Ms. Doran 58 year old Female returns for evaluation of her rheumatoid arthritis. She remains on Rinvoq 15 mg 5 days a week, she skips and Saturdays. The reduced the frequency is because of mild elevation in LFTs. That seems to have not made any difference in joint symptoms in that she is doing quite well. The exception is the right TMJ. She is is being worked up for revision surgery. It improved a bit but there still is some pain, grinding and popping. Further evaluation she thinks with MRI is planned in the next few weeks. 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 She also has joined a gym. There have been no problems with her hidradenitis recently. She takes occasional acetaminophen for the TMJ pain and rarely takes an ibuprofen. [facility] Medical History (Updated 12/29/22 @ 08:19 by Brendon Gale MD) Pneumonia Elevated transaminase level Long-term use of immunosuppressant medication COVID-19 vaccine administered Hidradenitis suppurativa of left axilla Urge incontinence Hypercholesterolemia MRSA infection GERD (gastroesophageal reflux disease) Rheumatoid arthritis Hypothyroid Surgical History TMJ (sprain of temporomandibular joint) History of esophagogastroduodenoscopy (EGD) Hx of colonoscopy History of eye surgery Ulnar neuropathy at elbow of left upper extremity Plantar fasciitis, bilateral H/O tubal ligation Hx of tonsillectomy Inguinal hernia Family History Mother Myocardial infarct Father Lung cancer Paternal Uncle Bladder cancer Paternal Aunt Stomach cancer Maternal Uncle Myocardial infarct Social History Housing: House Are you a primary lead care manager to a significant other at home: No Do you presently have visiting nurse or other home services: No Alcohol intake: current Alcohol intake frequency: a few times a week Comment: medicated for pain Patient Tobacco Use Status: Never used Tobacco e-Cigarette/Vaping Use: Never Used Second Hand Smoke Exposure: No Advance Directives Date on File: 09/17/20 Current occupational status: employed 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 No redness or swelling. HEART:? Regular rhythm, S1-S2 heard, no murmurs, rubs or gallops. LUNG:? Clear to percussion and auscultation NECK: No thyromegaly or masses, no adenopathy, trachea midline. No parotid swelling or tenderness. EXTREMITIES: No edema, no calf tenderness, normal peripheral pulses. JOINT EXAM:?? Cervical Spine:.? Full range of motion without pain; no tenderness. Mild right TMJ tenderness; no swelling or redness. Thoracic Spine:.? No scoliosis.? No tenderness on palpation. Lumbar Spine:.? Mild discomfort with flexion at about 60 degrees.? Most of this is in the left paraspinal region.? No tenderness.? ? ? Straight leg raising is negative. Chest Wall:.? No tenderness, swelling, increased warmth or erythema. Hands:.? Right:? No swelling or tenderness in the MCP or PIP joints.? All the joints have pain-free range of motion without swelling or tenderness.? Left:? Normal pain-free range of motion without tenderness, swelling, increased warmth or erythema. 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 Wrists:.? Normal pain-free range of motion without tenderness, swelling, increased warmth or erythema. Elbows:. Normal pain-free range of motion without tenderness, swelling, increased warmth or erythema. Shoulders:.?? Full range of motion without pain. No tenderness, weakness, swelling, increased warmth or erythema. Hips:.? Full range of motion without pain. Hip bursa:.? No tenderness. Knees:?? Normal pain-free range of motion without tenderness, swelling, increased warmth or erythema.? There is no effusion or crepitation Ankles:? Normal pain-free range of motion without tenderness, swelling, increased warmth or erythema. Feet:? Right: Slight bony enlargement without tenderness at the 1st MTP. There is perhaps some minimal bony prominence over the dorsum of the foot. The rest of the joints have no tenderness or swelling. Left: Slight medial heel tenderness. There is also a slight prominence without tenderness over the instep. No other areas of without tenderness, swelling, increased warmth or erythema. Results Reviewed Results Reviewed: Laboratory Tests 05/04/23 17:07 WBC 6.5 RBC 4.37 Hgb 13.8 Hct 40.7 ESR 9 AST 70 H ALT 88 H Assessment & Plan Assessment & Plan (1) TMJ (temporomandibular joint disorder): Comment: August 2022 right TMJ arthroplasty by Dr. Reyes Code(s): M26.609 - Unspecified temporomandibular joint disorder, unspecified side (2) Long-term use of immunosuppressant medication: Code(s): Z79.899 - Other computer systems security analyst (current) drug therapy (3) Rheumatoid arthritis: Comment: Onset ~ 2003, RF positive. Treated with methotrexate and Remicade (failing response), changed to Humira ~2005 and combination helpful. 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 Off/on meds late [id number]. Enbrel stopped because of recurrent infections. Leflunomide caused skin rash, summer 2013. Orencia started 2013; methotrexate added 12/29 but stopped due to LFT elevations Xeljanz in place of Orencia Feb 2015 - helpful but further LFT elevations 02/03. Rinvoq in place of Xeljanz 01/2020 - doses at 15 mg 5 days a week Code(s): M06.9 - Rheumatoid arthritis, unspecified Qualifiers: Rheumatoid arthritis location: multiple sites Rheumatoid factor presence: without rheumatoid factor Qualified Code(s): M06.09 - Rheumatoid arthritis without rheumatoid factor, multiple sites Plan Rheumatoid arthritis with good control of synovitis with current treatment. Additionally there are no lesions of hidradenitis recently. The LFTs have improved, presumably related to her weight loss, exercising, and slight reduction in the Rinvoq dose. We will continue with that medication. She will follow-up with the jaw surgeon about the TMJ pain. She says they may consider a joint replacement. Lab work will be rechecked before the next visit in about 4 months. Orders: Orders Comprehensive Met. Panel 4 Months M06.9 - Rheumatoid arthritis, unspecified, Z79.899 - Other computer systems security analyst (current) drug therapy Complete Blood Count Auto Diff 4 Months M06.9 - Rheumatoid arthritis, unspecified, Z79.899 - Other computer systems security analyst (current) drug therapy Erythrocyte Sedimentation Rate 4 Months M06.9 - Rheumatoid arthritis, unspecified, Z79.899 - Other group home (current) drug therapy C Reactive Protein 4 Months M06.9 - Rheumatoid arthritis, unspecified, Z79.899 - Other computer systems security analyst (current) drug therapy Coding Level of Care Code Est Pt Level 3 (44872) Diagnoses TMJ (temporomandibular joint disorder) M26.609 Long-term use of immunosuppressant medication Z79.899 Rheumatoid arthritis of multiple sites with negative rheumatoid factor M06.09 Rheumatoid arthritis location: multiple sites Rheumatoid factor presence: without rheumatoid factor
[2023-05-07 14:46] VITALS: BP 110/70; PULSE 68; TEMP 36.1; O2SAT 95; BMI 33.1
== END 2023-05-07 15:19 | disposition home or self-care (01) ==
PROVIDERS: PCP Internal Medicine; Visit Provider Nurse Practitioner Family
DX: M26.609 Unspecified temporomandibular joint disorder, unspecified side (principal); Z79.899 Other long term (current) drug therapy; M06.09 Rheumatoid arthritis without rheumatoid factor, multiple sites
CPT/HCPCS: 99213

== ENCOUNTER 2023-06-29 10:00 | Outpatient (AMB) | payer BC, SELFPAY ==
--- NOTE | 2023-06-29 10:02 | MHC.PC.OV ---
Vital Signs 06/29/23 10:05 Height 5 ft 5.5 in Weight 201 lb BMI 32.9 BP 112/70 Blood Pressure Location Lt brachial Position Sitting Intake Visit Reasons: Wheezing and possible sleep apnea Intake Note: Patient here c/o wheexzing, snoring Maintainability Engineer Required: No Accompanied by: Self / Same As Patient Allergies etanercept [From ENBREL] Allergy (Intermediate, Verified 06/29/23 10:12) RASH tofacitinib [From Xeljanz] Adverse Reaction (Intermediate, Verified 06/29/23 10:12) high LFT Medication List - Last Reconciled 06/29/23 by Maeve Paniagua MD azelastine 2 sprays intranasal BID cholecalciferol (vitamin D3) 50 mcg PO DAILY citalopram 20 mg PO DAILY 90 days levothyroxine 50 mcg PO DAILY methylcellulose (laxative) (Citrucel) 500 mg PO TID oxybutynin chloride ER 5 mg PO DAILY 90 days pantoprazole 40 mg PO DAILY rosuvastatin 5 mg PO DAILY upadacitinib ER (Rinvoq) 15 mg PO DAILY 30 days Tobacco use date assessed: 06/29/23 Dental Screening Dental Screen Date: 06/29/23 Did you have a dental visit in the last 12 months?: Yes Did you have a dental problem in the last 6 months where you did not have access to dental care?: No Was dental information given to patient?: Patient has dentist HPI HPI Comments History of Present Illness Details This is a 58-year-old female with hypothyroidism, hypercholesterolemia and rheumatoid arthritis that comes today complaining of shortness of breath and wheezing requiring rescue inhaler at least twice a week. I will add a long-acting inhaler and order pulmonary function test to see the degree of her asthma. She also complains of daytime sleepiness by severely dozing off when sitting and reading, watching TV, riding as a passenger in a car for 1 hour without a break, lying down to rest in the afternoon when circumstances permit and sitting quietly after lunch without alcohol with an [place] score Scale of 15 and home sleep study test was ordered. On levothyroxine for her hypothyroidism and TSH was ordered. On statins for elevated cholesterol. On Rinvoq for her rheumatoid arthritis that is follow by Rheumatology. [facility] Medical History (Updated 06/29/23 @ 10:34 by Maeve Paniagua MD) Pneumonia Elevated transaminase level Long-term use of immunosuppressant medication COVID-19 vaccine administered Hidradenitis suppurativa of left axilla Urge incontinence Hypercholesterolemia MRSA infection GERD (gastroesophageal reflux disease) Rheumatoid arthritis Hypothyroid Surgical History TMJ (sprain of temporomandibular joint) History of esophagogastroduodenoscopy (EGD) Hx of colonoscopy History of eye surgery Ulnar neuropathy at elbow of left upper extremity Plantar fasciitis, bilateral H/O tubal ligation Hx of tonsillectomy Inguinal hernia Family History Mother Myocardial infarct Father Lung cancer Paternal Uncle Bladder cancer Paternal Aunt Stomach cancer Maternal Uncle Myocardial infarct Social History (Updated 06/29/23 @ 10:16 by Maeve Paniagua MD) Housing: House Are you a primary medicare nurse to a significant other at home: No Do you presently have visiting nurse or other home services: No Alcohol intake: current Alcohol intake frequency: a few times a month Alcohol type: wine and hard liquor Comment: medicated for pain Patient Tobacco Use Status: Never used Tobacco e-Cigarette/Vaping Use: Never Used Second Hand Smoke Exposure: No Advance Directives Date on File: 09/17/20 service: No Current occupational status: employed 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 1. Little interest or pleasure in doing things: not at all 2. Feeling down, depressed, or hopeless: not at all 3. Trouble falling or staying asleep, or sleeping too much: not at all 4. Feeling tired or having little energy: not at all 5. Poor appetite or overeating: not at all 6. Feeling bad about yourself - or that you are a failure or have let yourself or your family down: not at all 7. Trouble concentrating on things, such as reading the newspaper or watching television: not at all 8. Moving or speaking so slowly that other people could have noticed. Or the opposite - being so fidgety or restless that you have been moving around a lot more than usual: not at all 9. Thoughts that you would be better off or of hurting yourself in some way: not at all Total score: 0 Depression Screening Interpretation: Negative Depression Screening Done: Yes 95220 - PHQ-9 Billing: Yes Source: Developed by Drs. Cristhian Olivo, Xiao Vines, Augustine Adams and colleagues, with an educational jenna from [employer]. Thrive Questionnaire Date Thrive assessed: 06/29/23 I am a: Patient What is your living situation today?: I have a steady place to live Within the past 12 months, did the food you bought not last and you didn't have the money to get more?: Never true Within the past 12 months, did you worry whether your food would run out before you got money to buy more?: Never true Do you have trouble paying for medicines?: No Do you have trouble getting transportation to medical appointments?: No Do you have trouble paying your heating and electricity bill?: No Do you have trouble taking care of your child, family member or friend?: No Do you have trouble with day-to-day activities such as bathing, preparing meals, shopping, managing finances, etc.?: No Are you currently unemployed and looking for a job?: No Are you interested in more education?: No Please select the resources that you would like help with: None Currently or been in a relationship where the following occur: no concerns reported THRIVE Score: 0 AUDIT C Alcohol Use Questionnaire (AUDIT-C) 1. How often do you have a drink containing alcohol?: Monthly or less 2. How many drinks containing alcohol do you have on a typical day when you are drinking?: 1 or 2 3. How often do you have six or more drinks on one occasion?: Never Total Score: 1 GUADALUPE-7 AMB Questionnaire GUADALUPE-7 Date GUADALUPE - 7 assessed: 06/29/23 Feeling nervous, anxious, or on edge: 0 = Not at all Not being able to stop or control worryin = Not at all Worrying too much about different things: 0 = Not at all Trouble relaxin = Not at all Being so restless that it is hard to sit still: 0 = Not at all Becoming easily annoyed or irritable: 0 = Not at all Feeling afraid as if something awful might happen: 0 = Not at all Total GUADALUPE-7 score (0-4 normal; 5-9 mild; 10-14 moderate; 15-21 severe): 0 Source: Developed by Drs. Cristhian Olivo, Xiao Vines, Augustine Adams and colleagues, with an educational jenna from [employer]. GUADALUPE-7 Assessment Billing GUADALUPE-7 Assessment Tool: GUADALUPE-7 Assessment 04169 Review of Systems Const All systems reviewed & are unremarkable except as noted in HPI and below Eyes Reports no additional complaints, Denies change in vision and Denies other visual disturbances Card Denies chest pain at rest, Denies chest pain with activity, Denies edema, Denies irregular heart rhythm, Denies claudication, Reports dyspnea, Denies dyspnea on exertion, Denies orthopnea, Denies paroxysmal nocturnal dyspnea and Denies slow heart rate Resp Denies cough, Reports dyspnea, Denies dyspnea on exertion and Reports wheezing GI Denies abdominal pain, Denies change in bowel habits, Denies excessive flatus, Denies nausea and Denies vomiting Denies urinary incontinence, Denies urinary hesitancy and Denies urinary urgency Musc Denies abnormal gait, Denies atrophy, Denies deformity and Denies limited range of motion Skin/Breast Denies bleeding lesions, Denies changing lesions and Denies rash Neuro Denies abnormal gait, Denies behavioral changes and Denies lack of coordination Psych Denies behavioral changes Aller/Immun Reports wheezing Physical exam (Primary Care) Vital Signs: Last Vital Signs BP 112/70 06/29/23 10:05 BMI result Body Mass Index 32.9 Tobacco/Smoking Status: Tobacco use Status Tobacco use date assessed 06/29/23 06/29/23 10:10 Patient Tobacco Use Status Never used Tobacco 06/29/23 10:10 e-Cigarette/Vaping Use Never Used 06/29/23 10:10 PHQ-9: PHQ-9 Score PHQ-9: Total score 0 06/29/23 10:10 Depression Screening Interpretation: Negative Thrive Assessment: Date of Thrive Assessment Date Thrive assessed 06/29/23 06/29/23 10:10 Currently or been in a relationship where the following occur: no concerns reported Resp Effort & Inspection: normal respiratory effort Auscultation: clear to auscultation bilaterally Cardio Jugular venous distension: no JVD Rate: regular rate Rhythm: regular rhythm Heart sounds: S1 normal heart sound present and S2 normal heart sound present Extrem General: Yes full ROM Assessment and Plan Assessment & Plan (1) Hypothyroid: Code(s): E03.9 - Hypothyroidism, unspecified Qualifiers: Hypothyroidism type: acquired Qualified Code(s): E03.9 - Hypothyroidism, unspecified Plan: Continue levothyroxine. Monitor TSH. (2) Rheumatoid arthritis: Comment: Onset ~ 2003, RF positive. Treated with methotrexate and Remicade (failing response), changed to Humira ~2005 and combination helpful. 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 Off/on meds late 1358-2466. Enbrel stopped because of recurrent infections. Leflunomide caused skin rash, summer 2013. Orencia started 2013; methotrexate added 12/29 but stopped due to LFT elevations Xeljanz in place of Orencia Feb 2015 - helpful but further LFT elevations 02/03. Rinvoq in place of Xeljanz 01/2020 - doses at 15 mg 5 days a week Code(s): M06.9 - Rheumatoid arthritis, unspecified Qualifiers: Rheumatoid arthritis location: multiple sites Rheumatoid factor presence: without rheumatoid factor Qualified Code(s): M06.09 - Rheumatoid arthritis without rheumatoid factor, multiple sites Plan: Continue Rinvoq. Follow-up with rheumatology. (3) Hypercholesterolemia: Code(s): E78.00 - Pure hypercholesterolemia, unspecified Plan: Continue statins. (4) Asthma: Code(s): J45.909 - Unspecified asthma, uncomplicated Qualifiers: Asthma severity: moderate Asthma persistence: persistent Asthma complication type: uncomplicated Qualified Code(s): J45.40 - Moderate persistent asthma, uncomplicated Plan: Start long-acting inhaler. Use rescue inhaler as needed. Pulmonary function test ordered. (5) Daytime sleepiness: Code(s): R40.0 - Somnolence Plan: Home sleep study order due to [place] score Scale of 15. Orders: Orders Thyroid Stimulating Hormone Today E03.9 - Hypothyroidism, unspecified PFT pulmonary function test Today J45.909 - Unspecified asthma, uncomplicated RT home sleep study Today R40.0 - Somnolence Medications: New albuterol sulfate 2.5 mg (3 mL) inhalation Q4H 30 days PRN 75 mL 0RF shortness of breath or wheezing nebulizers (AeroEclipse II Nebulizer) As directed 1 ea 0RF J45.909 - Unspecified asthma, uncomplicated fluticasone furoate 50 mcg/actuation (Arnuity Ellipta) 1 inh inhalation Q24H 30 days 30 ea 6RF J45.909 - Unspecified asthma, uncomplicated Coding Level of Care Code Est Pt Level 4 (03745) Diagnoses Acquired hypothyroidism E03.9 Hypothyroidism type: acquired Rheumatoid arthritis of multiple sites with negative rheumatoid factor M06.09 Rheumatoid arthritis location: multiple sites Rheumatoid factor presence: without rheumatoid factor Hypercholesterolemia E78.00 Moderate persistent asthma without complication J45.40 Asthma severity: moderate Asthma persistence: persistent Asthma complication type: uncomplicated Daytime sleepiness R40.0 Additional Codes GUADALUPE-7 Assessment Billing - GUADALUPE-7 Assessment Tool: GUADALUPE-7 Assessment 38105 ([id number]) Time Spent (min) 25
[2023-06-29 10:05] VITALS: BP 112/70; BMI 32.9
== END 2023-06-29 10:24 | disposition home or self-care (01) ==
PROVIDERS: PCP Internal Medicine; Visit Provider Internal Medicine
DX: E03.9 Hypothyroidism, unspecified (principal); M06.09 Rheumatoid arthritis without rheumatoid factor, multiple sites; E78.00 Pure hypercholesterolemia, unspecified; J45.40 Moderate persistent asthma, uncomplicated; R40.0 Somnolence
CPT/HCPCS: 99214

== ENCOUNTER 2023-06-29 10:29 | Outpatient (REF) | payer BC, SELFPAY ==
[2023-06-29 12:08] LABS: Thyroid Stimulating Hormone 0.87 uIU/mL (0.32-4.0)
== END 2023-06-29 10:30 | disposition home or self-care (01) ==
LOC: HO.LAB 10:29
PROVIDERS: PCP Internal Medicine; Visit Provider Internal Medicine
DX: E03.9 Hypothyroidism, unspecified (principal)
CPT/HCPCS: 36415; 84443

== ENCOUNTER → 2023-08-04 08:52 | Outpatient (REF) | payer BC, SELFPAY | LOC: HO.SL 08:52 | PROVIDERS: PCP Internal Medicine; Visit Provider Internal Medicine | DX: Z13.89 Encounter for screening for other disorder (principal) ==

== ENCOUNTER 2023-08-25 11:39 | Outpatient (REF) | payer BC, SELFPAY ==
[2023-08-25 11:59] LABS: MANUAL DIFF FLAG NO
[2023-08-25 12:26] LABS: Basophils Percent Auto 0.8 % (0-2); Eosinophils Absolute Auto 0.1 X10*3/uL (0.0-0.4); Eosinophils Percent Auto 1.1 % (0-4); Hematocrit 38.6 % (37.0-47.0); Hemoglobin 12.8 g/dl (12.0-16.0); Imm Gran Abs Auto 0.02 X10*3/uL (0.00-0.03); Imm Gran Pct Auto 0.4 % (0.0-0.4); Lymphocytes Absolute Auto 1.6 X10*3/uL (1.2-4.9); Lymphocytes Percent Auto 30.3 % (20-40); Mean Corpuscular HGB Conc 33.2 g/dl (31.0-35.0); Mean Corpuscular Hemoglobin 32.1 pg (27.0-33.0); Mean Corpuscular Volume 96.7 fL (80.0-98.0); Mean Platelet Volume 9.5 fL (9.4-12.3); Monocytes Absolute Auto 0.5 X10*3/uL (0.1-1.2); Monocytes Percent Auto 10.1 % (2-11); Neutrophils Percent Auto 57.3 % (45-73); Platelet Count 376 X10*3/uL (160-400); Red Blood Count 3.99 X10*6/uL (4.20-5.50); Red Cell Distribution Width 13.1 % (11.0-16.0); White Blood Count 5.2 X10*3/uL (4.8-10.8)
[2023-08-25 12:55] LABS: Alanine Aminotransferase 57 U/L (0-31); Albumin Level 4.4 g/dL (3.5-5.0); Alkaline Phosphatase 64 U/L (39-117); Anion Gap 12 (12-20); Aspartate Amino Transferase 45 U/L (5-31); Bilirubin Total 0.5 mg/dL (0.0-1.0); Blood Urea Nitrogen 10 mg/dL (9-16); C Reactive Protein < 0.10 mg/dL (< or = 0.50); Calcium 9.6 mg/dL (8.4-10.2); Carbon Dioxide 25 mmol/L (22-29); Chloride 109 mmol/L (96-108); Estimated Glomerular Filt Rate > 60; Glucose Random 87 mg/dL (60-115); Potassium 4.7 mmol/L (3.3-5.1); Sodium 141 mmol/L (135-145); Total Protein 7.5 g/dL (6.5-8.0)
[2023-08-25 13:05] LABS: Erythrocyte Sedimentation Rate 10 MM/HR (0-20)
== END 2023-08-25 11:40 | disposition home or self-care (01) ==
LOC: HO.LAB 11:39
PROVIDERS: PCP Internal Medicine; Visit Provider Nurse Practitioner Family
DX: M06.9 Rheumatoid arthritis, unspecified (principal); Z79.899 Other long term (current) drug therapy
CPT/HCPCS: 36415; 80053; 85025; 85652; 86140

== ENCOUNTER 2023-09-10 12:24 | Outpatient (AMB) | payer BC, SELFPAY ==
--- NOTE | 2023-09-10 12:32 | AM.OFFWIN_ITS ---
Intake Vital Signs 09/10/23 12:33 Height 5 ft 5.5 in Weight 195 lb BMI 32.0 BP 114/70 Blood Pressure Location Rt brachial Position Sitting Pulse 63 Pulse Source Pulse Oximeter Temp 98.6 F Pulse Oximetry (%) 97 Oxygen Delivery Method Room Air Intake Visit Reasons: Possible UTI Intake Note: pt here c/o urinary urgency and discomfort. Patient Tobacco Use Status: Never used Tobacco Allergies etanercept [From ENBREL] Allergy (Intermediate, Verified 09/10/23 12:33) RASH tofacitinib [From Xeljanz] Adverse Reaction (Intermediate, Verified 09/10/23 12:33) high LFT Do you need a note to return to daycare/school/sports/work: No HPI Possible UTI HPI Details This is a 58-year-old female patient who presents today with a 4-5 day history of urinary frequency, urgency, and burning with urination. Reports a pressure sensation in her bladder. Denies any flank pain. Denies any fever or chills. Has seen urology previously for sling. Feels she has been having some issues fully empyting her bladder. [facility] Medical History Pneumonia Elevated transaminase level Long-term use of immunosuppressant medication COVID-19 vaccine administered Hidradenitis suppurativa of left axilla Urge incontinence Hypercholesterolemia MRSA infection GERD (gastroesophageal reflux disease) Rheumatoid arthritis Hypothyroid Surgical History TMJ (sprain of temporomandibular joint) History of esophagogastroduodenoscopy (EGD) Hx of colonoscopy History of eye surgery Ulnar neuropathy at elbow of left upper extremity Plantar fasciitis, bilateral H/O tubal ligation Hx of tonsillectomy Inguinal hernia Family History Mother Myocardial infarct Father Lung cancer Paternal Uncle Bladder cancer Paternal Aunt Stomach cancer Maternal Uncle Myocardial infarct Social History Housing: House Are you a primary career guidance technician to a significant other at home: No Do you presently have visiting nurse or other home services: No Alcohol intake: current Alcohol intake frequency: a few times a month Alcohol type: wine and hard liquor Comment: medicated for pain Patient Tobacco Use Status: Never used Tobacco e-Cigarette/Vaping Use: Never Used Second Hand Smoke Exposure: No Advance Directives Date on File: 09/17/20 service: No Current occupational status: employed 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 Cognitive needs: No Hearing needs: No Vision needs: Yes Review of Systems Const All systems reviewed & are unremarkable except as noted in HPI and below Physical Exam Vital Signs: Last Vital Signs Temp 98.6 F 09/10/23 12:33 Pulse 63 09/10/23 12:33 BP 114/70 09/10/23 12:33 Pulse Ox 97 09/10/23 12:33 Oxygen Delivery Method Room Air 09/10/23 12:33 BMI result Body Mass Index 32.0 Const General: cooperative and no acute distress Resp Effort & Inspection: normal respiratory effort GI Palpation (GI): Bladder palpation abnormal ( pressure when palpated) General: Yes Bladder palpation abnormal ( pressure when palpated) and Yes no CVA tenderness Back/Spine/Pelvis Back: no CVA tenderness Skin General skin exam: no rashes or lesions noted Extrem General: Yes no clubbing, cyanosis or edema Psych Appearance: grossly normal Mental Status: mental status grossly normal Speech and movement: Normal speech and movement present Results AMB Urinalysis, Automated UA Leukoctes 125 Leticia/uL Last Edit by Aaron Mota CMA on 09/10/23 12:5 7 UA Nitrite Negative Last Edit by Aaron Mota CMA on 09/10/23 12:57 UA Urobilinogen 0.2 mg/dL Last Edit by Aaron Mota CMA on 09/10/23 12 :57 UA Protein 30 mg/dL Last Edit by Aaron Mota CMA on 09/10/23 12:57 UA pH 6.5 Last Edit by Aaron Mota CMA on 09/10/23 12:57 UA Blood 200 Ilia/uL Last Edit by Aaron Mota CMA on 09/10/23 12:57 UA Specific Harper 1.005 Last Edit by Aaron Mota CMA on 09/10/23 12:57 UA Ketone Negative Last Edit by Aaron Mota CMA on 09/10/23 12:57 UA Bilirubin 0 mg/dL Last Edit by Aaron Mota CMA on 09/10/23 12:57 UA Glucose 0 mg/dL Last Edit by Aaron Mota CMA on 09/10/23 12:57 Assessment & Plan Assessment & Plan (1) Urinary tract infection: Code(s): N39.0 - Urinary tract infection, site not specified Qualifiers: Urinary tract infection type: acute cystitis Hematuria presence: with hematuria Qualified Code(s): N30.01 - Acute cystitis with hematuria Plan: Symptoms consistent with UTI, and urine dip with leuks, protein, blood. Patient has done well in previous years on Bactrim for UTI. Will send this as well as phenazopyridine. We reviewed indications, use, possible side effects of medications. Advised ongoing adequate hydration, and trying to fully empty bladder when voiding. If she does not improve with treatment, or if symptoms worsen/new symptoms such as fever/chills develop, she should return to the clinic for further evaluation. She verbalizes understanding and agrees to plan. She has an appt. with PCP Dr. Sears and inspector process soon, and we discussed possibly seeing urology again at some point if bladder symptoms are ongoing or if she gets recurrent UTI. Orders: Orders AMB Urinalysis Automated Today Z13.9 - Encounter for screening, unspecified Medications: New phenazopyridine 200 mg PO TID PRN 6 tabs 0RF pain N30.01 - Acute cystitis with hematuria sulfamethoxazole-trimethoprim 800-160 mg 1 tab PO BID 3 days 6 tabs 0RF N30.01 - Acute cystitis with hematuria Coding Level of Care Code Est Pt Level 4 (83210) Diagnoses Acute cystitis with hematuria N30.01 Urinary tract infection type: acute cystitis Hematuria presence: with hematuria
[2023-09-10 12:33] VITALS: BP 114/70; PULSE 63; TEMP 37; O2SAT 97; BMI 32.0
== END 2023-09-10 13:06 | disposition home or self-care (01) ==
PROVIDERS: PCP Internal Medicine; Visit Provider Nurse Practitioner Family
DX: Z13.9 Encounter for screening, unspecified (principal); N30.01 Acute cystitis with hematuria
CPT/HCPCS: 81003; 99214

== ENCOUNTER → 2023-10-06 13:41 | Outpatient (REF) | payer BC, SELFPAY | LOC: HO.SL 13:41 | PROVIDERS: PCP Internal Medicine; Visit Provider Internal Medicine | DX: R06.83 Snoring (principal); R40.0 Somnolence | CPT/HCPCS: 95806 ==

== ENCOUNTER → 2023-10-06 13:52 | Outpatient (BNV) | payer BC, SELFPAY | PROVIDERS: PCP Internal Medicine; Visit Provider Internal Medicine | DX: R06.83 Snoring (principal) | CPT/HCPCS: 95806 ==

== ENCOUNTER 2023-10-15 14:20 | Outpatient (REF) | payer BC, SELFPAY ==
[2023-10-15 15:47] LABS: Appearance Urine Turbid; Color Urine Dark Yellow; Glucose Urine UA Negative (Negative); Leukocyte Esterase Urine Large (3+) (Negative); Nitrite Urine Negative (Negative); PH 5.5 (5.0-9.0); UMIC TRIGGER UACC YES; Urine Blood Small (1+) (Negative); Urine Ketones Trace mg/dL (Negative); Urine Protein 30 (1+) mg/dL (Neg-Trace)
[2023-10-15 16:25] LABS: Bacteria Urine 4+ (None Seen); Calcium Oxalate Crystals Urine Present; RBC Urine 0-2 /HPF (0-2); Squamous Epithelial Cell Urine 0-2 /HPF (0-2); UACC Culture Trigger YES; WBC Urine >50 /HPF (0-5)
== END 2023-10-15 14:21 | disposition home or self-care (01) ==
LOC: HO.LAB 14:20
PROVIDERS: PCP Internal Medicine; Visit Provider Internal Medicine
DX: R30.0 Dysuria (principal); R32 Unspecified urinary incontinence; R82.79 Other abnormal findings on microbiological examination of urine
CPT/HCPCS: 81001; 87086; 87088; 87186

== ENCOUNTER 2023-11-19 12:54 | Outpatient (REF) | payer BC, SELFPAY ==
--- NOTE | 2023-11-19 13:49 | PFT_ITS ---
Flows: FEV1: 82 % of predicted at 2.49 L FVC: 87 % of predicted at 3.40 L FEV1/FVC: 73 % Bronchodilator response: Present in small to medium airways only Volumes: Total lung capacity: 83 % of predicted at 5.04 L Residual volume: 88 % of predicted at 1.64 L Slow vital capacity: 79 % of predicted at 3.40 L Expiratory reserve volume: 80 % of predicted at 0.83 L Diffusion capacity: Mildly decreased, corrects to normal after adjustment for alveolar ventilation. Impression: No obstructive or restrictive ventilatory defect. Bronchodilator response present in small to medium airways only. [facility]
== END 2023-11-19 12:55 | disposition home or self-care (01) ==
LOC: HO.RESP 12:54
PROVIDERS: PCP Internal Medicine; Visit Provider Internal Medicine
DX: J45.909 Unspecified asthma, uncomplicated (principal)
CPT/HCPCS: 94010; 94640; 94727; 94729

== ENCOUNTER → 2023-11-19 13:49 | Outpatient (BNV) | payer BC, SELFPAY | PROVIDERS: PCP Internal Medicine; Visit Provider Internal Medicine Pulmonary Disease | DX: J45.909 Unspecified asthma, uncomplicated (principal) | CPT/HCPCS: 94060; 94727; 94729 ==

== ENCOUNTER 2023-11-30 14:40 | Outpatient (AMB) | payer BC, SELFPAY ==
--- NOTE | 2023-11-30 15:37 | AM.OFFWIN_ITS ---
Intake Vital Signs 11/30/23 15:40 Weight 195 lb BP 122/80 Blood Pressure Location Lt brachial Position Sitting Pulse 55 Pulse Source Pulse Oximeter Pulse Oximetry (%) 99 Oxygen Delivery Method Room Air Intake Visit Reasons: EP UTI? Intake Note: Patient here for frequent trips to the bathroom, burning sensation when urinating which started this morning. Patient Tobacco Use Status: Never used Tobacco Allergies etanercept [From ENBREL] Allergy (Intermediate, Verified 11/30/23 15:38) RASH tofacitinib [From Xeljanz] Adverse Reaction (Intermediate, Verified 11/30/23 15:38) high LFT Do you need a note to return to daycare/school/sports/work: No HPI HPI Comments History of Present Illness Details 58 y/o female patient who presents to [facility] walk [facility] clinic with c/o urinary symptoms. Reports Urinary frequency and urgency. She was treated for UTI back in Oct with Bactrim but reports that symptoms never went away completely. [facility] Medical History Pneumonia Elevated transaminase level Long-term use of immunosuppressant medication COVID-19 vaccine administered Hidradenitis suppurativa of left axilla Urge incontinence Hypercholesterolemia MRSA infection GERD (gastroesophageal reflux disease) Rheumatoid arthritis Hypothyroid Surgical History TMJ (sprain of temporomandibular joint) History of esophagogastroduodenoscopy (EGD) Hx of colonoscopy History of eye surgery Ulnar neuropathy at elbow of left upper extremity Plantar fasciitis, bilateral H/O tubal ligation Hx of tonsillectomy Inguinal hernia Family History Mother Myocardial infarct Father Lung cancer Paternal Uncle Bladder cancer Paternal Aunt Stomach cancer Maternal Uncle Myocardial infarct Social History Housing: House Are you a primary childcare provider to a significant other at home: No Do you presently have visiting nurse or other home services: No Alcohol intake: current Alcohol intake frequency: a few times a month Alcohol type: wine and hard liquor Comment: medicated for pain Patient Tobacco Use Status: Never used Tobacco e-Cigarette/Vaping Use: Never Used Second Hand Smoke Exposure: No Advance Directives Date on File: 09/17/20 service: No Current occupational status: employed 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 Cognitive needs: No Hearing needs: No Vision needs: Yes Review of Systems Const All systems reviewed & are unremarkable except as noted in HPI and below Physical Exam Vital Signs: Last Vital Signs Pulse 55 11/30/23 15:40 BP 122/80 11/30/23 15:40 Pulse Ox 99 11/30/23 15:40 Oxygen Delivery Method Room Air 11/30/23 15:40 Const General: cooperative and no acute distress Nutritional Appearance: obese Orientation/consciousness: patient oriented x3 General: Yes no CVA tenderness Back/Spine/Pelvis Back: no CVA tenderness Skin General skin exam: no rashes or lesions noted Neuro General: patient oriented x3, gait normal and moves all extremities Psych Speech and movement: Normal speech and movement present Results AMB Urinalysis, Automated UA Leukoctes 15 Leticia/uL Last Edit by David Storey CCM on 11/30/23 15:5 5 UA Nitrite Negative Last Edit by David Storey [facility] on 11/30/23 15:55 UA Urobilinogen 0.2 mg/dL Last Edit by David Storey [facility] on 11/30/23 15:55 UA Protein 30 mg/dL Last Edit by David Storey [facility] on 11/30/23 15:55 UA pH 6.0 Last Edit by David Storey [facility] on 11/30/23 15:55 UA Blood 80 Ilia/uL Last Edit by David Storey [facility] on 11/30/23 15:55 UA Specific [place] 1.015 Last Edit by David Storey [facility] on 11/30/23 15:55 UA Ketone Negative Last Edit by David Storey [facility] on 11/30/23 15:55 UA Bilirubin 0 mg/dL Last Edit by David Storey [facility] on 11/30/23 15:55 UA Glucose 0 mg/dL Last Edit by David Storey [facility] on 11/30/23 15:55 Assessment & Plan Assessment & Plan (1) Cystitis: Code(s): N30.90 - Cystitis, unspecified without hematuria Plan: C&S back in September showed resistance to Bactrim and Macrobid but sensitive to Levofloxacin. Ordered Levofloxacin x 7 days Ordered another U/A & culture Orders: Orders UA CC w/rflx Micro + Cult Today N30.90 - Cystitis, unspecified without hematuria AMB Urinalysis Automated Today Z13.9 - Encounter for screening, unspecified Medications: New levofloxacin 500 mg PO DAILY 7 days 7 tabs 0RF N30.90 - Cystitis, unspecified without hematuria Coding Level of Care Code Est Pt Level 3 (22045) Diagnoses Cystitis N30.90 Time Spent (min) 15
[2023-11-30 15:40] VITALS: BP 122/80; PULSE 55; O2SAT 99
== END 2023-11-30 16:03 | disposition home or self-care (01) ==
PROVIDERS: PCP Internal Medicine; Visit Provider Nurse Practitioner Family
DX: Z13.9 Encounter for screening, unspecified (principal); N30.90 Cystitis, unspecified without hematuria

== ENCOUNTER 2023-12-03 12:48 | Outpatient (AMB) | payer BC, SELFPAY ==
[2023-12-03 12:57] VITALS: BP 102/62; PULSE 67; O2SAT 97; BMI 30.7
--- NOTE | 2023-12-03 12:57 | MHC.OFFVIS ---
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 She was last seen in the office on 05/07/23 by Colleen Holman. Allergies etanercept [From ENBREL] Allergy (Intermediate, Verified 12/03/23 12:59) RASH tofacitinib [From Xeljanz] Adverse Reaction (Intermediate, Verified 12/03/23 12:59) high LFT Medication List - Last Reconciled 12/03/23 by Michelle Owen MD albuterol sulfate 2.5 mg (3 mL) inhalation Q4H PRN 30 days azelastine 2 sprays intranasal BID cholecalciferol (vitamin D3) 50 mcg PO DAILY citalopram 20 mg PO DAILY 90 days fluticasone furoate 50 mcg/actuation (Arnuity Ellipta) 1 inh inhalation Q24H 30 days inhalational spacing device (Aerovent Plus spacer) As directed levofloxacin 500 mg PO DAILY 7 days levothyroxine 50 mcg PO DAILY methylcellulose (laxative) (Citrucel) 500 mg PO TID nebulizers (AeroEclipse II Nebulizer) As directed oxybutynin chloride ER 5 mg PO DAILY 90 days pantoprazole 40 mg PO DAILY Rinvoq ER (upadacitinib) 15 mg PO DAILY NS rosuvastatin 5 mg PO DAILY semaglutide 0.5 mg subcut QWEEK HPI Comments Details: Patient is a 68-year-old female with hypothyroidism, hyperlipidemia and seropositive nonerosive rheumatoid arthritis. Here today for follow-up. Interval History: Patient last seen 05/07/2023 with Colleen Holman. At that time her rheumatoid arthritis was in remission on Rinvoq. No escalation of medication needed at a time. Today patient reports that she is doing well. No history of VTEs or cardiac issues. Rheumatologic History: Onset ~ 2003, RF positive. Treated with methotrexate and Remicade (failing response), changed to Humira ~2005 and combination helpful. 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 Off/on meds late [id number]. Enbrel stopped because of recurrent infections. Leflunomide caused skin rash, summer 2013. Orencia started 2013; methotrexate added 12/29 but stopped due to LFT elevations Xeljanz in place of Orencia Feb 2015 - helpful but further LFT elevations 02/03. Rinvoq in place of Xeljanz 01/2020 Decreased Rinvoq to 5 days a week in the setting of elevated liver enzymes Current Rheumatology Medication(s): Rinvoq 15mg 5 days a week [facility] Medical History Pneumonia Elevated transaminase level Long-term use of immunosuppressant medication COVID-19 vaccine administered Hidradenitis suppurativa of left axilla Urge incontinence Hypercholesterolemia MRSA infection GERD (gastroesophageal reflux disease) Rheumatoid arthritis Hypothyroid Surgical History TMJ (sprain of temporomandibular joint) History of esophagogastroduodenoscopy (EGD) Hx of colonoscopy History of eye surgery Ulnar neuropathy at elbow of left upper extremity Plantar fasciitis, bilateral H/O tubal ligation Hx of tonsillectomy Inguinal hernia Family History Mother Myocardial infarct Father Lung cancer Paternal Uncle Bladder cancer Paternal Aunt Stomach cancer Maternal Uncle Myocardial infarct Social History Housing: House Are you a primary emergency care tech to a significant other at home: No Do you presently have visiting nurse or other home services: No Alcohol intake: current Alcohol intake frequency: a few times a month Alcohol type: wine and hard liquor Comment: medicated for pain Patient Tobacco Use Status: Never used Tobacco e-Cigarette/Vaping Use: Never Used Second Hand Smoke Exposure: No Advance Directives Date on File: 09/17/20 service: No Current occupational status: employed 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 Cognitive needs: No Hearing needs: No Vision needs: Yes Review of Systems Const Details: Review of Systems Constitutional: Denies fever, chills, weight loss ENT: Denies vision changes, eye pain or eye redness, dental caries, dry mouth GI: Denies nausea, vomiting, diarrhea, abdominal pain, change in BM Pulm: Denies SOB, VERAS, hemoptysis, wheezing Cards: Denies chest pain, palpitations Skin: Denies Raynaud's, rash, nail changes, photosensitivity, EXTRACTOR MACHINE OPERATOR: Denies headaches, weakness, paresthesias, recurrent falls MSK: as per HPI All other systems reviewed and are unremarkable except noted above Physical Exam Vital Signs: Last Vital Signs Pulse 67 12/03/23 12:57 BP 102/62 12/03/23 12:57 Pulse Ox 97 12/03/23 12:57 Oxygen Delivery Method Room Air 12/03/23 12:57 BMI result Body Mass Index 30.7 Const Other: Physical Examination Patient well appearing and in no apparent painful distress Able to rise from chair without support. ?Gait normal. Constitutional Mucous membranes pink and moist patient alert and cooperative HEENT Conjunctiva and sclera clear. ?Pupils equal round and reactive to light. ?No lymphadenopathy. ?Normal dentition. Respiratory System Normal respiratory effort and able to speak in complete sentences. ?Clear to auscultation bilaterally. ?No crackles, rales, rhonchi, wheezes heard. Cardiac System Regular rate and rhythm. ?S1 and S2 heard no murmurs. ?Radial pulses intact bilaterally MSK No deformity, swelling, abnormalities noted to bilateral hands. ?No evidence of synovitis. ?Able to move all joints with full range of motion, without limitation. Hands:.??Normal pain-free range of motion without tenderness, swelling, increased warmth or erythema. Able to make a full fist and has a good communication center operator strength. Wrists: Normal pain-free range of motion without tenderness, swelling, increased warmth or erythema. Elbows: Full range of motion without pain. No tenderness, weakness, swelling, increased warmth or erythema. Shoulders: Full range of motion without pain. No tenderness, weakness, swelling, increased warmth or erythema. Hips: Full range of motion without pain. Hip bursa:.??No tenderness. Knees:.???Normal pain-free range of motion without tenderness, swelling, increased warmth or erythema.?No effusion or crepitations Ankles:.??Normal pain-free range of motion without tenderness, swelling, increased warmth or erythema. Feet:.??Normal pain-free range of motion without tenderness, swelling, increased warmth or erythema. Tender points:??No tenderness to digital palpation at the occiput, trapezius, second rib, lateral epicondyle, knees, greater trochanter bilaterally, and left gluteal. Results Reviewed Results Reviewed: Laboratory Tests 05/07/23 08/25/23 06:22 11:58 WBC 5.2 RBC 3.99 L Hgb 12.8 Plt Count 376 ESR 10 Sodium 141 Potassium 4.7 Chloride 109 H Carbon Dioxide 25 BUN 10 Creatinine 0.84 AST 47 H 45 H ALT 80 H 57 H C-Reactive Protein < 0.10 Assessment & Plan Assessment & Plan (1) Rheumatoid arthritis: Comment: Onset ~ 2003, RF positive. Treated with methotrexate and Remicade (failing response), changed to Humira ~2005 and combination helpful. 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 Off/on meds late [id number]. Enbrel stopped because of recurrent infections. Leflunomide caused skin rash, summer 2013. Orencia started 2013; methotrexate added 12/29 but stopped due to LFT elevations Xeljanz in place of Orencia Feb 2015 - helpful but further LFT elevations 02/03. Rinvoq in place of Xeljanz 01/2020 - doses at 15 mg 5 days a week Code(s): M06.9 - Rheumatoid arthritis, unspecified Category: Medical Qualifiers: Rheumatoid arthritis location: multiple sites Rheumatoid factor presence: without rheumatoid factor Qualified Code(s): M06.09 - Rheumatoid arthritis without rheumatoid factor, multiple sites Plan: #Seropositive RA Patient with stable seropositive rheumatoid arthritis. Currently in remission on Rinvoq 5 days a week. Her transaminases have been consistently elevated but this has been attributed to nonalcoholic fatty liver disease. (2) Long-term use of immunosuppressant medication: Code(s): Z79.899 - Other shelter (current) drug therapy Category: Medical Plan: #Long-term Use of DAVID inhibitor (Rinvoq) Discussed with patient the benefits and risks of DAVID inhibitors for the management of the rheumatic condition Benefits include reduce pain, maintenance of remission and reduction of flares Risks include thromboembolic events, skin cancer and nonmelanoma skin cancers, other forms of cancer, cardiovascular alcohol and mortality Advise patient that they are to hold the medication and for up to 1 week after a febrile illness or an open skin wound (3) Elevated transaminase level: Comment: likely due to fatty liver; 2021 CT scan of the abdomen showed fatty liver. No focal lesions. Code(s): R74.01 - Elevation of levels of liver transaminase levels Category: Medical Plan: #Elevated AST/ALT Labs stable. We will check today. (4) Osteopenia: Comment: DEXA 05/03/20. Spine -1.3, Left femur neck -0.5, left femur total -0.2 Code(s): M85.80 - Other specified disorders of bone density and structure, unspecified site Category: Medical Qualifiers: Osteopenia location: spine Qualified Code(s): M85.88 - Other specified disorders of bone density and structure, other site Plan: #Spine Osteopenia Discussed lifestyle changes including weight-bearing exercises to help with improvement in her spinal bone density. Plan I spent 25 minutes reviewing the record and labs, seeing the patient, discussing the treatment plan and documenting in the medical record ? For next visit: Review DEXA Orders: Orders Erythrocyte Sedimentation Rate Today M06.09 - Rheumatoid arthritis without rheumatoid factor, multiple sites, R74.01 - Elevation of levels of liver transaminase levels, Z79.899 - Other shelter (current) drug therapy Comprehensive Met. Panel Today M06.09 - Rheumatoid arthritis without rheumatoid factor, multiple sites, R74.01 - Elevation of levels of liver transaminase levels, Z79.899 - Other shelter (current) drug therapy C Reactive Protein Today M06.09 - Rheumatoid arthritis without rheumatoid factor, multiple sites, R74.01 - Elevation of levels of liver transaminase levels, Z79.899 - Other mainspring strip inspector (current) drug therapy XR DEXA axial skeleton Today M06.09 - Rheumatoid arthritis without rheumatoid factor, multiple sites, M85.80 - Other specified disorders of bone density and structure, unspecified site Comprehensive Met. Panel 4 Months M06.09 - Rheumatoid arthritis without rheumatoid factor, multiple sites, M85.80 - Other specified disorders of bone density and structure, unspecified site Complete Blood Count Auto Diff Today M06.09 - Rheumatoid arthritis without rheumatoid factor, multiple sites, R74.01 - Elevation of levels of liver transaminase levels, Z79.899 - Other mainspring strip inspector (current) drug therapy Erythrocyte Sedimentation Rate 4 Months M06.09 - Rheumatoid arthritis without rheumatoid factor, multiple sites, M85.80 - Other specified disorders of bone density and structure, unspecified site Complete Blood Count Auto Diff 4 Months M06.09 - Rheumatoid arthritis without rheumatoid factor, multiple sites, M85.80 - Other specified disorders of bone density and structure, unspecified site C Reactive Protein 4 Months M06.09 - Rheumatoid arthritis without rheumatoid factor, multiple sites, M85.80 - Other specified disorders of bone density and structure, unspecified site Medications: Changed From Rinvoq ER (upadacitinib) 15 mg PO DAILY 30 tabs 2RF NS M06.09 - Rheumatoid arthritis without rheumatoid factor, multiple sites To Rinvoq ER (upadacitinib) 15 mg PO DAILY 90 days 90 tabs 2RF NS M06.09 - Rheumatoid arthritis without rheumatoid factor, multiple sites Coding Level of Care Code Est Pt Level 3 (08009) Diagnoses Rheumatoid arthritis of multiple sites with negative rheumatoid factor M06.09 Rheumatoid arthritis location: multiple sites Rheumatoid factor presence: without rheumatoid factor Long-term use of immunosuppressant medication Z79.899 Elevated transaminase level R74.01 Osteopenia of spine M85.88 Osteopenia location: spine
== END 2023-12-03 13:26 | disposition home or self-care (01) ==
PROVIDERS: PCP Internal Medicine; Visit Provider Student in an Organized Health Care Education/Training Program
DX: M06.09 Rheumatoid arthritis without rheumatoid factor, multiple sites (principal); Z79.899 Other long term (current) drug therapy; R74.01 Elevation of levels of liver transaminase levels; M85.88 Other specified disorders of bone density and structure, other site
CPT/HCPCS: 99213

== ENCOUNTER 2023-12-03 12:48 | Outpatient (REF) | payer BC, SELFPAY ==
[2023-12-03 13:51] LABS: MANUAL DIFF FLAG NO
[2023-12-03 14:24] LABS: Basophils Percent Auto 0.6 % (0-2); Eosinophils Absolute Auto 0.1 X10*3/uL (0.0-0.4); Hematocrit 39.9 % (37.0-47.0); Hemoglobin 13.5 g/dl (12.0-16.0); Imm Gran Abs Auto 0.01 X10*3/uL (0.00-0.03); Imm Gran Pct Auto 0.2 % (0.0-0.4); Lymphocytes Percent Auto 39.2 % (20-40); Mean Corpuscular HGB Conc 33.8 g/dl (31.0-35.0); Mean Corpuscular Hemoglobin 32.8 pg (27.0-33.0); Mean Corpuscular Volume 96.8 fL (80.0-98.0); Mean Platelet Volume 9.8 fL (9.4-12.3); Monocytes Absolute Auto 0.6 X10*3/uL (0.1-1.2); Neutrophils Absolute Auto 2.4 x10*3/uL (2.0-8.3); Platelet Count 328 X10*3/uL (160-400); Red Blood Count 4.12 X10*6/uL (4.20-5.50); Red Cell Distribution Width 12.9 % (11.0-16.0); White Blood Count 5.1 X10*3/uL (4.8-10.8)
[2023-12-03 15:00] LABS: Erythrocyte Sedimentation Rate 7 MM/HR (0-20)
[2023-12-03 15:26] LABS: Alanine Aminotransferase 46 U/L (0-31); Albumin Level 4.6 g/dL (3.5-5.0); Alkaline Phosphatase 62 U/L (39-117); Anion Gap 14 (12-20); Aspartate Amino Transferase 35 U/L (5-31); Bilirubin Total 0.5 mg/dL (0.0-1.0); Blood Urea Nitrogen 14 mg/dL (9-16); C Reactive Protein < 0.04 mg/dL (< or = 0.50); Calcium 9.8 mg/dL (8.4-10.2); Carbon Dioxide 28 mmol/L (22-29); Chloride 105 mmol/L (96-108); Estimated Glomerular Filt Rate > 60; Glucose Random 86 mg/dL (60-115); Potassium 4.7 mmol/L (3.3-5.1); Sodium 142 mmol/L (135-145); Total Protein 7.6 g/dL (6.5-8.0)
== END 2023-12-03 12:49 | disposition home or self-care (01) ==
LOC: HO.LAB 12:48
PROVIDERS: PCP Internal Medicine; Visit Provider Student in an Organized Health Care Education/Training Program
DX: M06.09 Rheumatoid arthritis without rheumatoid factor, multiple sites (principal); Z79.899 Other long term (current) drug therapy; R74.01 Elevation of levels of liver transaminase levels
CPT/HCPCS: 36415; 80053; 85025; 85652; 86140

== ENCOUNTER 2023-12-10 12:41 | Outpatient (REF) | payer BC, SELFPAY ==
[2023-12-17 09:38] LABS: HPV mRNA E6/E7 Not Detected (Not Detected)
== END 2023-12-10 12:42 | disposition home or self-care (01) ==
LOC: HO.LNP 12:41
PROVIDERS: PCP Internal Medicine; Visit Provider Advanced Practice Midwife
DX: Z01.419 Encounter for gynecological examination (general) (routine) without abnormal findings (principal)
CPT/HCPCS: 87624; 88175

== ENCOUNTER 2023-12-10 12:41 | Outpatient (AMB) | payer BC, SELFPAY ==
--- NOTE | 2023-12-10 12:47 | MHC.OFFVIS ---
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 She is doing well with concerns: frequent UTI's. No symptoms today. Attempting to eat a healthy diet with calcium and vitamin D and stays active with exercise. Currently not sexually active. Denies any vaginal dryness or irritation. STI testing offered; she declined. Last pap smear; 2018. Last mammogram; 2022, is scheduled for future mammogram. Colonoscopy is UTD. Denies any family history of breast, ovarian or colon cancer. [facility] Medical History Osteopenia Pneumonia Elevated transaminase level Long-term use of immunosuppressant medication COVID-19 vaccine administered Hidradenitis suppurativa of left axilla Urge incontinence Hypercholesterolemia MRSA infection GERD (gastroesophageal reflux disease) Rheumatoid arthritis Hypothyroid Surgical History TMJ (sprain of temporomandibular joint) History of esophagogastroduodenoscopy (EGD) Hx of colonoscopy History of eye surgery Ulnar neuropathy at elbow of left upper extremity Plantar fasciitis, bilateral H/O tubal ligation Hx of tonsillectomy Inguinal hernia Family History Mother Myocardial infarct Father Lung cancer Paternal Uncle Bladder cancer Paternal Aunt Stomach cancer Maternal Uncle Myocardial infarct Social History Housing: House Are you a primary care management coordinator to a significant other at home: No Do you presently have visiting nurse or other home services: No Alcohol intake: current Alcohol intake frequency: a few times a month Alcohol type: wine and hard liquor Comment: medicated for pain Patient Tobacco Use Status: Never used Tobacco e-Cigarette/Vaping Use: Never Used Second Hand Smoke Exposure: No Advance Directives Date on File: 09/17/20 service: No Current occupational status: employed 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 Cognitive needs: No Hearing needs: No Vision needs: Yes Female Reproductive History Menstrual control method: permanent sterilization Permanent Sterilization: BTL Total pregnancies: 2 Full term: 2 Number of Living Children: 2 Date of last pap smear: 07/04/18 (neg pap and hpv) Date of Mammogram: 11/27/22 (Birad 1) Review of Systems Const All systems reviewed & are unremarkable except as noted in HPI and below Reports as per HPI Eyes Reports no additional complaints ENT Reports no additional complaints Card Reports no additional complaints Resp Reports no additional complaints GI Reports as per HPI and Reports no additional complaints Reports as per HPI Musc Reports no additional complaints Skin/Breast Reports as per HPI Neuro Reports no additional complaints Psych Reports no additional complaints Endo Reports no additional complaints Gage/Lymph Reports no additional complaints Aller/Immun Reports no additional complaints Physical Exam Vital Signs: Last Vital Signs BP 108/74 12/10/23 12:50 BMI result Body Mass Index 31.1 Const General: cooperative, healthy appearing, no acute distress, well developed and alert Orientation/consciousness: patient oriented x3 HEENT Head: Yes normal to inspection Eyes General: appearance normal, both eyes and all related structures Neck Neck: Yes normal visual inspection Thyroid: Thyroid normal Chest Chest palpation & inspection: normal inspection of the chest and other (no puckering, dimpling, peau de orange, retraction, discharge, masses) Breast/axilla inspection: normal inspection of the breasts Breast/axilla palpation: normal palpation of the breasts Resp Effort & Inspection: normal respiratory effort GI Inspection: Yes normal to inspection Palpation (GI): Soft to palpation Rectal Exam - Female: deferred General: Yes bladder normal to palpation External Female Exam: normal external appearance and normal appearance of the urethra Speculum Exam - Vagina: normal appearance of the vagina, normal palpation, normal vaginal discharge and vagina atrophic Speculum Exam - Cervix: normal appearance of the cervix and normal palpation Bimanual exam- vagina & uterus: normal bimanual exam, normal palpation, uterine size normal, bladder normal to palpation, normal palpation and non-tender Bimanual Exam- Adnexa, other: no masses Skin General skin exam: no rashes or lesions noted Rashes: no rashes Neuro General: patient oriented x3 Cognition (Neuro): normal cognition Extrem General: Yes normal to inspection Psych Attitude: cooperative Thought process: Normal thought process present Assessment & Plan Assessment & Plan (1) Encounter for well woman exam with routine gynecological exam: Code(s): Z01.419 - Encounter for gynecological examination (general) (routine) without abnormal findings Category: Medical Plan Discussed: Current recommendations for pap smears per ASCCP guidelines. Pap obtained today. Breast awareness, periodic self breast exams and yearly mammogram. Maintain a healthy lifestyle, well balanced diet including Calcium 1,200 mg and Vitamin D 600 IU daily, and routine exercise. Contact the office with any postmenopausal bleeding. Urology referral sent. Patient verbalizes understanding and agrees to the plan of care. She was given opportunity to ask questions and all questions were answered to the best of my ability. RTO in 1 year for annual park naturalist exam. This note is constructed using voice recognition software. While every effort has been made to ensure accuracy, band saw operator errors may have been included. Orders: Orders PAP + HPV E6/E7 rfx 18/45 Today Z01.419 - Encounter for gynecological examination (general) (routine) without abnormal findings Referrals Urology Referral N39.0 - Urinary tract infection, site not specified Coding Level of Care Code Est Pt Prev Care 40-64y(71437) Diagnoses Encounter for well woman exam with routine gynecological exam Z01.419
[2023-12-10 12:50] VITALS: BP 108/74; BMI 31.1
== END 2023-12-10 13:30 | disposition home or self-care (01) ==
PROVIDERS: PCP Internal Medicine; Visit Provider Advanced Practice Midwife
DX: Z01.419 Encounter for gynecological examination (general) (routine) without abnormal findings (principal)
CPT/HCPCS: 99396

== ENCOUNTER 2023-12-24 16:06 | Outpatient (AMB) | payer BC, SELFPAY ==
--- NOTE | 2023-12-24 16:10 | A.OFFPC_ITS ---
Vital Signs 12/24/23 16:11 12/24/23 17:03 Height 5 ft 5.5 in Weight 190 lb 8 oz BMI 31.2 BP 140/70 H 120/70 Blood Pressure Location Lt brachial Lt brachial Position Sitting Sitting Pulse 63 Pulse Source Pulse Oximeter Pulse Oximetry (%) 97 Oxygen Delivery Method Room Air Intake Visit Reasons: PE Intake Note: Patient is here today for a physical. Engineering Job Titles Required: No Research Scientist: Not Required per policy Accompanied by: Self / Same As Patient Allergies etanercept [From ENBREL] Allergy (Intermediate, Verified 12/24/23 16:11) RASH tofacitinib [From Xeljanz] Adverse Reaction (Intermediate, Verified 12/24/23 16:11) high LFT Medication List - Last Reconciled 12/24/23 by Etelvina Sears MD albuterol sulfate 2.5 mg (3 mL) inhalation Q4H PRN 30 days cholecalciferol (vitamin D3) 50 mcg PO DAILY citalopram 20 mg PO DAILY 90 days inhalational spacing device (Aerovent Plus spacer) As directed levothyroxine 50 mcg PO DAILY nebulizers (AeroEclipse II Nebulizer) As directed pantoprazole 40 mg PO DAILY Rinvoq ER (upadacitinib) 15 mg PO DAILY 90 days NS rosuvastatin 5 mg PO DAILY Tobacco use date assessed: 12/24/23 Dental Screening Dental Screen Date: 06/29/23 HPI PE HPI Details 58-year-old obese female with rheumatoid arthritis GERD hypothyroid hypercholesterolemia and generalized anxiety disorder coming in for physical exam last seen last year. Patient's mammogram is due colonoscopy up-to-date 2022 bone density 11/04/2021 osteopenia. Review of the notes has seen Rheumatology in December 02 on Rinvoq.. Patient was seen in the Urgent Center in November 29 for cystitis treated with levofloxacin. Noted PFT done in 12/05/2023 showing no obstructive or restrictive ventilatory defect bronchodilator response present in small to medium airways. Sleep study done 10/05/2023 showing normal sleep study with no obstruction. Discharge summary noted in August 2023 TMJ arthroplasty 03/06/2023 temporomandibular joint total joint replacement application arch bars. Dr. Reyes. Patient was seen by my colleague in June for wheezing and possible sleep apnea. Patient has been placed on albuterol. And iron VT.. recurrent UTI and will see Urology 02/08/2024 [facility] Medical History Osteopenia Pneumonia Elevated transaminase level Long-term use of immunosuppressant medication COVID-19 vaccine administered Hidradenitis suppurativa of left axilla Urge incontinence Hypercholesterolemia MRSA infection GERD (gastroesophageal reflux disease) Rheumatoid arthritis Hypothyroid Surgical History TMJ (sprain of temporomandibular joint) History of esophagogastroduodenoscopy (EGD) Hx of colonoscopy History of eye surgery Ulnar neuropathy at elbow of left upper extremity Plantar fasciitis, bilateral H/O tubal ligation Hx of tonsillectomy Inguinal hernia Family History Mother Myocardial infarct Father Lung cancer Paternal Uncle Bladder cancer Paternal Aunt Stomach cancer Maternal Uncle Myocardial infarct Social History (Updated 12/24/23 @ 17:05 by Etelvina Sears MD) Housing: House Are you a primary complex care nurse to a significant other at home: No Do you presently have visiting nurse or other home services: No Alcohol intake: current Alcohol intake frequency: a few times a month Alcohol type: wine and hard liquor Comment: 3-4 x a month glass of wine Patient Tobacco Use Status: Never used Tobacco e-Cigarette/Vaping Use: Never Used Second Hand Smoke Exposure: No Advance Directives Date on File: 09/17/20 service: No Current occupational status: employed 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 1. Little interest or pleasure in doing things: not at all 2. Feeling down, depressed, or hopeless: not at all 3. Trouble falling or staying asleep, or sleeping too much: not at all 4. Feeling tired or having little energy: not at all 5. Poor appetite or overeating: not at all 6. Feeling bad about yourself - or that you are a failure or have let yourself or your family down: not at all 7. Trouble concentrating on things, such as reading the newspaper or watching television: not at all 8. Moving or speaking so slowly that other people could have noticed. Or the opposite - being so fidgety or restless that you have been moving around a lot more than usual: not at all 9. Thoughts that you would be better off or of hurting yourself in some way: not at all Total score: 0 Depression Screening Interpretation: Negative Depression Screening Done: Yes Source: Developed by Drs. Cristhian Olivo, Xiao Vines, Augustine Adams and colleagues, with an educational jenna from [employer]. Thrive Questionnaire Date Thrive assessed: 12/24/23 I am a: Patient What is your living situation today?: I have a steady place to live Within the past 12 months, did the food you bought not last and you didn't have the money to get more?: Never true Within the past 12 months, did you worry whether your food would run out before you got money to buy more?: Never true Do you have trouble paying for medicines?: No Do you have trouble getting transportation to medical appointments?: No Do you have trouble paying your heating and electricity bill?: No Do you have trouble taking care of your child, family member or friend?: No Do you have trouble with day-to-day activities such as bathing, preparing meals, shopping, managing finances, etc.?: No Are you currently unemployed and looking for a job?: Yes Are you interested in more education?: No Please select the resources that you would like help with: None Currently or been in a relationship where the following occur: No concerns reported THRIVE Score: 0 AUDIT C Alcohol Use Questionnaire (AUDIT-C) 1. How often do you have a drink containing alcohol?: 2-4 times a month 2. How many drinks containing alcohol do you have on a typical day when you are drinking?: 1 or 2 3. How often do you have six or more drinks on one occasion?: Never Total Score: 2 GUADALUPE-7 AMB Questionnaire GUADALUPE-7 Date GUADALUPE - 7 assessed: 12/24/23 Feeling nervous, anxious, or on edge: 0 = Not at all Not being able to stop or control worryin = Not at all Worrying too much about different things: 0 = Not at all Trouble relaxin = Not at all Being so restless that it is hard to sit still: 0 = Not at all Becoming easily annoyed or irritable: 0 = Not at all Feeling afraid as if something awful might happen: 0 = Not at all Total GUADALUPE-7 score (0-4 normal; 5-9 mild; 10-14 moderate; 15-21 severe): 0 Source: Developed by Drs. Cristhian Olivo, Xiao Vines, Augustine Adams and colleagues, with an educational jenna from [employer]. Review of Systems Const Denies poor appetite and Denies weakness Eyes Denies no additional complaints ENT Reports Normal hearing present, Denies dizziness, Denies nasal congestion, Boaz es tinnitus and Denies sore throat Card Denies chest pain, Denies syncope, Denies rapid heart rate and Denies dyspnea Resp Denies cough and Denies dyspnea GI Denies change in stool character, Reports constipation, Denies diarrhea, Denies nausea and Denies vomiting Denies urinary frequency, Denies difficulty voiding and Denies dysuria Neuro Reports Normal hearing present, Denies confusion, Denies dizziness, Denies syncope and Denies weakness Psych Denies confusion Physical exam (Primary Care) Vital Signs: Last Vital Signs Pulse 63 12/24/23 16:11 BP 140/70 H 12/24/23 16:11 Pulse Ox 97 12/24/23 16:11 Oxygen Delivery Method Room Air 12/24/23 16:11 BMI result Body Mass Index 31.2 Tobacco/Smoking Status: Tobacco use Status Tobacco use date assessed 12/24/23 12/24/23 16:16 Patient Tobacco Use Status Never used Tobacco 12/24/23 16:16 e-Cigarette/Vaping Use Never Used 12/24/23 16:16 PHQ-9: PHQ-9 Score PHQ-9: Total score 0 12/24/23 16:16 Depression Screening Interpretation: Negative Thrive Assessment: Date of Thrive Assessment Date Thrive assessed 12/24/23 12/24/23 16:16 Currently or been in a relationship where the following occur: No concerns reported Const General: No confusion Orientation/consciousness: No confusion HENMT Head: Yes normocephalic Ears: external ears normal and TM's normal bilaterally Face and sinus: Yes normal facial exam Mouth: moist mucous membranes Throat: Yes tonsils normal Eyes Conjunctivae: conjunctivae normal Pupils: Equal, round and reactive pupils present and Pupil accommodation reflex normal Direct Ophthalmoscopy: normal light reflex Neck Neck: No lymphadenopathy Thyroid: Thyroid normal Chest Chest palpation & inspection: normal inspection of the chest Resp Effort & Inspection: normal respiratory effort and no audible wheezes Auscultation: clear to auscultation bilaterally, no crackles, no wheezes and lung sounds not diminished Cardio Rate: regular rate Rhythm: regular rhythm Peripheral pulses: radial pulses present and dorsalis pedis present GI Other: declined Palpation (GI): no masses Auscultation: normal bowel sounds and normoactive bowel sounds Rectal Exam - Female: deferred Skin General skin exam: no rashes or lesions noted Rashes: no rashes Neuro General: No confusion Cranial nerves: Yes Equal, round and reactive pupils present and Yes Normal hearing present Cognition (Neuro): normal cognition Gait exam (Neuro): Normal gait present Motor exam (neuro): 5/5 motor strength present throughout Deep tendon reflexes (DTR's): Right brachioradialis reflex intensity grade: 2+, Left brachioradialis reflex intensity grade: 2+, Right patellar reflex intensity grade: 2+ and Left patellar reflex intensity grade: 2+ Extrem General: No edema Coding Level of Care Code Est Pt Prev Care 40-64y(99544) Diagnoses Annual physical exam Z00.00 Osteopenia of spine M85.88 Osteopenia location: spine Moderate persistent asthma without complication J45.40 Asthma severity: moderate Asthma persistence: persistent Asthma complication type: uncomplicated TMJ (temporomandibular joint disorder) M26.609 Obesity (BMI 30.0-34.9) E66.9 Rheumatoid arthritis of multiple sites with negative rheumatoid factor M06.09 Rheumatoid arthritis location: multiple sites Rheumatoid factor presence: without rheumatoid factor Gastroesophageal reflux disease without esophagitis K21.9 Esophagitis presence: without esophagitis Acquired hypothyroidism E03.9 Hypothyroidism type: acquired Hypercholesterolemia E78.00 Impaired fasting blood sugar R73.01 Assessment & Plan Assessment & Plan (1) Annual physical exam: Code(s): Z00.00 - Encounter for general adult medical examination without abnormal findings Category: Medical Plan: Patient is advised to eat healthy, keep well hydrated, keep active and have adequate sleep. (2) Osteopenia: Comment: DEXA 05/03/20. Spine -1.3, Left femur neck -0.5, left femur total -0.2 Code(s): M85.80 - Other specified disorders of bone density and structure, unspecified site Category: Medical Qualifiers: Osteopenia location: spine Qualified Code(s): M85.88 - Other specified disorders of bone density and structure, other site Plan: Patient is reminded about bone density (3) Asthma: Code(s): J45.909 - Unspecified asthma, uncomplicated Category: Medical Qualifiers: Asthma severity: moderate Asthma persistence: persistent Asthma com plication type: uncomplicated Qualified Code(s): J45.40 - Moderate persistent asthma, uncomplicated Plan: Continue with albuterol inhaler as needed (4) TMJ (temporomandibular joint disorder): Comment: August 2022 right TMJ arthroplasty by Dr. Reyes Code(s): M26.609 - Unspecified temporomandibular joint disorder, unspecified side Category: Medical Plan: Status post TMJ arthroplasty. (5) Obesity (BMI 30.0-34.9): Code(s): E66.9 - Obesity, unspecified Category: Medical Plan: Diet and exercise (6) Rheumatoid arthritis: Comment: Onset ~ 2003, RF positive. Treated with methotrexate and Remicade (failing response), changed to Humira ~2005 and combination helpful. 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 Off/on meds late [id number]. Enbrel stopped because of recurrent infections. Leflunomide caused skin rash, summer 2013. Orencia started 2013; methotrexate added 12/29 but stopped due to LFT elevations Xeljanz in place of Orencia Feb 2015 - helpful but further LFT elevations 02/03. Rinvoq in place of Xeljanz 01/2020 - doses at 15 mg 5 days a week Code(s): M06.9 - Rheumatoid arthritis, unspecified Category: Medical Qualifiers: Rheumatoid arthritis location: multiple sites Rheumatoid factor presence: without rheumatoid factor Qualified Code(s): M06.09 - Rheumatoid arthritis without rheumatoid factor, multiple sites Plan: Continue to follow-up with Rheumatology on Rinvoq (7) GERD (gastroesophageal reflux disease): Comment: EGD with dilation Small sliding hiatal hernia Reflux precautions Continue pantoprazole 40 mg b.i.d. within try to wean back to pantoprazole 40 mg daily Call with progress, if need to change PPI may do so Code(s): K21.9 - Gastro-esophageal reflux disease without esophagitis Category: Medical Qualifiers: Esophagitis presence: without esophagitis Qualified Code(s): K21.9 - Gastro-esophageal reflux disease without esophagitis Plan: Avoid the foods that causes that usually spicy foods, tomato products, juices, coffee, soda and foods that your sensitive to. After eating do not lie down, allow 3-4 hours before in lie down. And keep the head of bed above 30 degrees to avoid the acid from going up. (8) Hypothyroid: Code(s): E03.9 - Hypothyroidism, unspecified Category: Medical Qualifiers: Hypothyroidism type: acquired Qualified Code(s): E03.9 - Hypothyroidism, unspecified Plan: Continue with thyroid medication (9) Hypercholesterolemia: Code(s): E78.00 - Pure hypercholesterolemia, unspecified Category: Medical Plan: Avoid fried foods, chicken skin, eggs, butter margarine, pastries and meat. Be it pork or beef they have a lot of cholesterol LDL goal of less than 130 and triglyceride of less than 150. On rosuvastatin 5 mg once a (10) Impaired fasting blood sugar: Code(s): R73.01 - Impaired fasting glucose Category: Medical Plan: Decrease the amount of carbohydrate intake, pasta, bread, rice and potatoes are all sugar and that is aside from all the sweet stuff, remember that fruits are good but they are Sweet also. Orders: Orders CT chest wo IV con Today R91.1 - Solitary pulmonary nodule
[2023-12-24 16:11] VITALS: BP 140/70; PULSE 63; O2SAT 97; BMI 31.2
[2023-12-24 17:03] VITALS: BP 120/70
== END 2023-12-24 17:15 | disposition home or self-care (01) ==
PROVIDERS: PCP Internal Medicine; Visit Provider Internal Medicine
DX: Z00.00 Encounter for general adult medical examination without abnormal findings (principal); M06.09 Rheumatoid arthritis without rheumatoid factor, multiple sites; E66.9 Obesity, unspecified; Z68.31 Body mass index [BMI] 31.0-31.9, adult; M85.88 Other specified disorders of bone density and structure, other site; J45.40 Moderate persistent asthma, uncomplicated; M26.609 Unspecified temporomandibular joint disorder, unspecified side; K21.9 Gastro-esophageal reflux disease without esophagitis; E03.9 Hypothyroidism, unspecified; E78.00 Pure hypercholesterolemia, unspecified; R73.01 Impaired fasting glucose

== ENCOUNTER → 2023-12-24 16:06 | Outpatient (BNVA) | payer BC, SELFPAY | PROVIDERS: PCP Internal Medicine; Visit Provider Internal Medicine ==

== ENCOUNTER 2024-01-24 16:52 | Outpatient (REF) | payer BC, SELFPAY ==
[2024-01-24 18:16] LABS: Appearance Urine Clear; Color Urine Yellow; Glucose Urine UA Negative (Negative); Leukocyte Esterase Urine Trace (Negative); Nitrite Urine Negative (Negative); PH 6.5 (5.0-9.0); Specific Gravity - Urine 1.025 (1.005-1.025); UMIC TRIGGER UACC YES; Urine Blood Negative (Negative); Urine Ketones Trace mg/dL (Negative); Urine Protein Negative (Neg-Trace)
[2024-01-24 18:36] LABS: Bacteria Urine None Seen (None Seen); Hyaline Casts Urine 0-2 /LPF (0-2); RBC Urine 0-2 /HPF (0-2); Squamous Epithelial Cell Urine 0-2 /HPF (0-2); WBC Urine 0-5 /HPF (0-5)
== END 2024-01-24 16:53 | disposition home or self-care (01) ==
LOC: HO.LAB 16:52
PROVIDERS: PCP Internal Medicine; Visit Provider Internal Medicine
DX: R30.0 Dysuria (principal)
CPT/HCPCS: 81001

== ENCOUNTER 2024-01-27 12:00 | Outpatient (AMB) | payer BC, SELFPAY ==
--- NOTE | 2024-01-27 12:46 | MHC.OFFWIV ---
Intake Vital Signs 01/27/24 12:57 Weight 190 lb BP 138/70 Blood Pressure Location Lt brachial Position Sitting Pulse 54 Pulse Source Pulse Oximeter Temp 98.2 F Temp Source Oral Pulse Oximetry (%) 98 Oxygen Delivery Method Room Air Intake Visit Reasons: EP Painful urination Intake Note: Patient here for pain on urination, abdominal discomfort which has been present for a couple of days. Patient Tobacco Use Status: Never used Tobacco Allergies etanercept [From ENBREL] Allergy (Intermediate, Verified 01/27/24 12:56) RASH tofacitinib [From Xeljanz] Adverse Reaction (Intermediate, Verified 01/27/24 12:56) high LFT Do you need a note to return to daycare/school/sports/work: Yes HPI EP Painful urination HPI Details This note is constructed using voice recognition software. While every effort has been made to ensure accuracy, hospice care consultant errors may have been included. The patient is a 59 year old female who presents to the clinic today with concern for UTI. She reports that she has been having urinary tract infections every month for the past several months, has been treated with antibiotics each time. She has a urology appointment pending on February 07. She reports urinary urgency, burning, frequency. She reports that the symptoms are intermittent, and improve with increased hydration. She denies any back pain. She does have a history of a bladder sling, she is postmenopausal for over a decade. [facility] Medical History Osteopenia Pneumonia Elevated transaminase level Long-term use of immunosuppressant medication COVID-19 vaccine administered Hidradenitis suppurativa of left axilla Urge incontinence Hypercholesterolemia MRSA infection GERD (gastroesophageal reflux disease) Rheumatoid arthritis Hypothyroid Surgical History TMJ (sprain of temporomandibular joint) History of esophagogastroduodenoscopy (EGD) Hx of colonoscopy History of eye surgery Ulnar neuropathy at elbow of left upper extremity Plantar fasciitis, bilateral H/O tubal ligation Hx of tonsillectomy Inguinal hernia Family History Mother Myocardial infarct Father Lung cancer Paternal Uncle Bladder cancer Paternal Aunt Stomach cancer Maternal Uncle Myocardial infarct Social History (Updated 12/24/23 @ 17:05 by Etelvina Sears MD) Housing: House Are you a primary career placement services counselor to a significant other at home: No Do you presently have visiting nurse or other home services: No Alcohol intake: current Alcohol intake frequency: a few times a month Alcohol type: wine and hard liquor Comment: 3-4 x a month glass of wine Patient Tobacco Use Status: Never used Tobacco e-Cigarette/Vaping Use: Never Used Second Hand Smoke Exposure: No Advance Directives Date on File: 09/17/20 service: No Current occupational status: employed 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 Cognitive needs: No Hearing needs: No Vision needs: Yes Review of Systems Const All systems reviewed & are unremarkable except as noted in HPI and below Physical Exam Vital Signs: Last Vital Signs Temp 98.2 F 01/27/24 12:57 Pulse 54 01/27/24 12:57 BP 138/70 01/27/24 12:57 Pulse Ox 98 01/27/24 12:57 Oxygen Delivery Method Room Air 01/27/24 12:57 Const General: cooperative, healthy appearing, comfortable, no acute distress and alert Orientation/consciousness: patient oriented x3 Limitations: no limitations Resp Effort & Inspection: normal respiratory effort and able to speak in complete sentences Other: Deferred General: Yes no CVA tenderness Back/Spine/Pelvis Back: no CVA tenderness Skin General skin exam: no rashes or lesions noted, elasticity normal and turgor normal Neuro General: patient oriented x3 Psych Appearance: grossly normal Mental Status: mental status grossly normal Speech and movement: Normal speech and movement present Affect: normal affect Assessment & Plan Assessment & Plan (1) Recurrent UTI: Code(s): N39.0 - Urinary tract infection, site not specified Plan: In office urinalysis with leukocytes and blood. Patient has been treated numerous times with antibiotics over the past year. Culture sent for sensitivity, for appropriate antibiotic selection. Advised patient to increase hydration. We will defer treatment to results. Orders: Orders Urine Culture Today N39.0 - Urinary tract infection, site not specified Coding Level of Care Code Est Pt Level 3 (00983) Diagnoses Recurrent UTI N39.0
[2024-01-27 12:57] VITALS: BP 138/70; PULSE 54; TEMP 36.8; O2SAT 98
== END 2024-01-27 13:32 | disposition home or self-care (01) ==
PROVIDERS: PCP Internal Medicine; Visit Provider Registered Nurse
DX: N39.0 Urinary tract infection, site not specified (principal); Z13.9 Encounter for screening, unspecified

== ENCOUNTER 2024-01-27 12:00 | Outpatient (REF) | payer BC, SELFPAY | END 2024-01-27 12:01 | disposition home or self-care (01) | LOC: HO.LAB 12:00 | PROVIDERS: PCP Internal Medicine | DX: N39.0 Urinary tract infection, site not specified (principal); B95.1 Streptococcus, group B, as the cause of diseases classified elsewhere | CPT/HCPCS: 81003; 87086; 87147 ==

== ENCOUNTER 2024-02-08 13:06 | Outpatient (AMB) | payer BC, SELFPAY ==
--- NOTE | 2024-02-08 13:14 | MHC.OFFVIS ---
Intake Visit Reasons: Recurrent UTI/Incontinence/Fam HX Bladder Ca Intake Note: Patient is present for RECURRENT UTI/INCONTINENCE/FAM HX BLADDER CA Urology Medication:NONE Antibiotic Allergy:NONE Blood Thinner:NONE TODAY'S PVR:0ML'S Food Stand Manager Required: No Allergies etanercept [From ENBREL] Allergy (Intermediate, Verified 02/08/24 13:16) RASH tofacitinib [From Xeljanz] Adverse Reaction (Intermediate, Verified 02/08/24 13:16) high LFT HPI Comments Details: Marian is a pleasant female. She is a patient of Dr. Sears. She is seen for the following conditions - Recurrent UTI Background of longstanding RA On Enbrel for many years Post menopausal Discussed risks for UTI Recommend Topical estrogen plus vitamin-C plus cranberry caps [facility] Medical History (Updated 02/14/24 @ 10:34 by Santos Ballard MD) UTI (urinary tract infection) Osteopenia Pneumonia Elevated transaminase level Long-term use of immunosuppressant medication COVID-19 vaccine administered Hidradenitis suppurativa of left axilla Urge incontinence Hypercholesterolemia MRSA infection GERD (gastroesophageal reflux disease) Rheumatoid arthritis Hypothyroid Surgical History TMJ (sprain of temporomandibular joint) History of esophagogastroduodenoscopy (EGD) Hx of colonoscopy History of eye surgery Ulnar neuropathy at elbow of left upper extremity Plantar fasciitis, bilateral H/O tubal ligation Hx of tonsillectomy Inguinal hernia Family History Mother Myocardial infarct Father Lung cancer Paternal Uncle Bladder cancer Paternal Aunt Stomach cancer Maternal Uncle Myocardial infarct Social History (Updated 12/24/23 @ 17:05 by Etelvina Sears MD) Housing: House Are you a primary acute care certified nursing assistant to a significant other at home: No Do you presently have visiting nurse or other home services: No Alcohol intake: current Alcohol intake frequency: a few times a month Alcohol type: wine and hard liquor Comment: 3-4 x a month glass of wine Patient Tobacco Use Status: Never used Tobacco e-Cigarette/Vaping Use: Never Used Second Hand Smoke Exposure: No Advance Directives Date on File: 09/17/20 service: No Current occupational status: employed 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 Cognitive needs: No Hearing needs: No Vision needs: Yes Review of Systems Const Denies chills and Denies fever(s) Card Reports no additional complaints and Denies syncope Resp Denies cough GI Denies abdominal pain and Denies heartburn Reports as per HPI and Denies change in libido Neuro Denies syncope Psych Denies change in libido Endo Denies change in libido Physical Exam Const General: cooperative, healthy appearing, comfortable and no acute distress Orientation/consciousness: patient oriented x3 HEENT Face and sinus: Yes normal facial exam Mouth: moist mucous membranes Neck Neck: Yes normal visual inspection, Yes full ROM and Yes trachea midline Chest Chest palpation & inspection: normal inspection of the chest Resp Effort & Inspection: normal respiratory effort, able to speak in complete sentences and no respiratory distress GI Inspection: Yes normal to inspection Back/Spine/Pelvis Cervical Spine: normal cervical lordosis Thoracic/Lumbar Spine: thoracic and lumbar spine normal to inspection Skin General skin exam: no rashes or lesions noted Neuro General: patient oriented x3, gait normal, tone normal and moves all extremities Extrem General: Yes normal to inspection and Yes capillary refill normal Office Procedures Post Void Residual Post Residual Void Post Void Residual (PVR): 0 30301-Nrhy Void Residual by ultrasound Results AMB Urinalysis, Automated UA Leukoctes 0 Leticia/uL Last Edit by PATIENCE Castorena on 02/08/24 13:41 UA Nitrite Negative Last Edit by PATIENCE Castorena on 02/08/24 13:41 UA Urobilinogen 0.2 mg/dL Last Edit by PATIENCE Castorena on 02/08/24 13:41 UA Protein 0 mg/dL Last Edit by PATIENCE Castorena on 02/08/24 13:41 UA pH 6.0 Last Edit by PATIENCE Castorena on 02/08/24 13:41 UA Blood 0 Ilia/uL Last Edit by PATIENCE Castorena on 02/08/24 13:41 UA Specific [place] 1.015 Last Edit by PATIENCE Castorena on 02/08/24 13:41 UA Ketone Negative Last Edit by PATIENCE Castorena on 02/08/24 13:41 UA Bilirubin 0 mg/dL Last Edit by PATIENCE Castorena on 02/08/24 13:41 UA Glucose 0 mg/dL Last Edit by PATIENCE Castorena on 02/08/24 13:41 Results Reviewed Results Reviewed: Laboratory Last Values Urine pH (Auto) 6.0 02/08/24 13:41 Specific [place] (Auto) 1.015 02/08/24 13:41 Urine Protein (Auto) 0 mg/dL 02/08/24 13:41 Glucose (UA)(Auto) 0 mg/dL 02/08/24 13:41 Urine Ketones (Auto) Negative 02/08/24 13:41 Urine Blood (Auto) 0 Ilia/uL 02/08/24 13:41 Urine Nitrite (Auto) Negative 02/08/24 13:41 Urine Bilirubin (Auto) 0 mg/dL 02/08/24 13:41 Urine Urobilinogen (Auto) 0.2 mg/dL 02/08/24 13:41 Leukocyte Esterase (Auto) 0 Leticia/uL 02/08/24 13:41 Assessment & Plan Assessment & Plan (1) UTI (urinary tract infection): Code(s): N39.0 - Urinary tract infection, site not specified Category: Medical (2) Immunocompromised state due to drug therapy: Code(s): D84.821 - Immunodeficiency due to drugs; Z79.899 - Other moth exterminator (current) drug therapy Category: Medical Plan Recurrent UTI in setting of immunocompromise from RA therapy Will require ongoing surveillance Orders: Orders AMB Urinalysis Automated 02/08/24 Z13.9 - Encounter for screening, unspecified Medications: New estradiol 0.01%(0.1mg/gram) pea-sized to urethra 2 times a week; 42.5 grams 2RF 30 days N36.2 - Urethral caruncle, N39.0 - Urinary tract infection, site not specified, N95.2 - Postmenopausal atrophic vaginitis Patient Instructions: Imaging studies, laboratory and physical exam results were discussed and reviewed in detail. No major barriers to patient understanding were identified. An opportunity to ask questions regarding the treatment plan was provided. All questions were answered. The patient expressed understanding and agreement with the above treatment plan. The patient is aware they should contact our office by phone for worsening of their current condition or the appearance of new urologic symptoms. Compliance is encouraged with any medications and followup testing that is ordered. It is a privilege to participate in the urologic care of your patient. If you have any questions or concerns regarding treatment for the above conditions, or other urologic issues, please do not hesitate to contact me. The office telephone contact is [phone]. This note is constructed using voice recognition software. While every effort has been made to ensure accuracy inseam leveler errors may have been included. Yours sincerely, Dr Santos Ballard MD, [facility] - Urology Providers of Expert, Compassionate Care for the Genitourinary System Coding Level of Care Code New Pt Level 4 (85671) Complex EM visit Add On G2211 Diagnoses UTI (urinary tract infection) N39.0 Immunocompromised state due to drug therapy D84.821; Z79.899 CPT Codes Post Residual Void - PVR CPT Code: 82845-Klvf Void Residual by ultrasound ([id number])
== END 2024-02-08 13:52 | disposition home or self-care (01) ==
PROVIDERS: PCP Internal Medicine; Visit Provider Urology
DX: Z13.9 Encounter for screening, unspecified (principal)

== ENCOUNTER 2024-02-18 12:55 | Outpatient (REF) | payer BC, SELFPAY ==
--- NOTE | ~2024-02-18 | CT_ITS ---
CLINICAL HISTORY: R91.1 - Solitary pulmonary nodule CT CHEST WITHOUT CONTRAST Comparison: CT/SR - CT ABDOMEN PELVIS W IV CON - 01/06/22 10:33 EST Findings: No significant pericardial effusion. Normal caliber thoracic aorta. The thyroid gland appears homogeneous. There is no mediastinal lymphadenopathy. Small hiatal hernia. No consolidation, pleural effusion or pneumothorax. 9 mm noncalcified juxtapleural nodule in the left lower lobe with slightly irregular borders. Measured 5 mm on prior study. Biapical pleural-parenchymal scarring. The upper abdomen is unremarkable. No acute fractures. IMPRESSION: 1. 9 mm solitary pulmonary nodule in the left lower lobe is increased in size compared to a study from 202. ACR Fleischner Society recommendations (MacMahon, et al. Radiology 2017; 284(1): 228-43) suggest the following: For patients with high or low risk of lung cancer, follow-up chest CT at 3 months. If stable, additional follow-up chest CT at 18 to 24 months. Alternatively (or additionally) PET/CT or tissue sampling could be performed. This document has been electronically signed by: Saundra Salomon DO on 02/18/2024 14:24:28
== END 2024-02-18 12:56 | disposition home or self-care (01) ==
LOC: HO.CT 12:55
PROVIDERS: PCP Internal Medicine; Visit Provider Internal Medicine
DX: R91.1 Solitary pulmonary nodule (principal)
CPT/HCPCS: 71250

== ENCOUNTER → 2024-02-18 12:56 | Outpatient (BNV) | payer BC, SELFPAY | PROVIDERS: PCP Internal Medicine; Visit Provider Radiology Diagnostic Radiology | DX: R91.1 Solitary pulmonary nodule (principal) | CPT/HCPCS: 71250 ==

== ENCOUNTER 2024-03-06 13:08 | Outpatient (AMB) | payer BC, SELFPAY ==
[2024-03-06 13:17] VITALS: BP 126/60; PULSE 63; BMI 32.5
--- NOTE | 2024-03-06 13:17 | MHC.OFFVIS ---
Vital Signs 03/06/24 13:17 Height 5 ft 5.5 in Weight 198 lb 6.656 oz BMI 32.5 BP 126/60 Blood Pressure Location Lt brachial Position Sitting Pulse 63 Intake Visit Reasons: pulmonary nodule Intake Note: Patient in office today for pulmonary nodule. CC: Patient reports dull ache on the upper left side of her back and sometimes shortness of breath. CT chest done on 02/18/24. Senior User Experience Architect Required: No Accompanied by: Self / Same As Patient Allergies etanercept [From ENBREL] Allergy (Intermediate, Verified 03/06/24 13:27) RASH tofacitinib [From Xeljanz] Adverse Reaction (Intermediate, Verified 03/06/24 13:27) high LFT Medication List - Last Reconciled 03/06/24 by Mario Castillo MD albuterol sulfate 2.5 mg (3 mL) inhalation Q4H PRN 30 days cholecalciferol (vitamin D3) 50 mcg PO DAILY citalopram 20 mg PO DAILY 90 days estradiol 0.01%(0.1mg/gram) pea-sized to urethra 2 times a week; 30 days inhalational spacing device (Aerovent Plus spacer) As directed levothyroxine 50 mcg PO DAILY nebulizers (AeroEclipse II Nebulizer) As directed pantoprazole 40 mg PO DAILY Rinvoq ER (upadacitinib) 15 mg PO DAILY 90 days NS rosuvastatin 5 mg PO DAILY tirzepatide (weight loss) (Zepbound) 2.5 mg subcut QWEEK HPI Comments Details: 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 She has had this under surveillance for several years time. (11 years). She has not had a scan for 2 years and this most recent scan demonstrates significant enlargement to almost a cm of the left lower lobe lung mass. Patient was self has never smoked but she has an exposure of secondhand smoke in that her both parents smoke. Her father actually has diagnosed with lung cancer and had a resection. Patient denies any significant cough, chest pain, wheezing, or hemoptysis. Weight, energy, appetite stable. She has never smoked as noted above. Chart was reviewed and patient evaluated. History of asthma. Patient has pupillary function tests which demonstrate mild decrease to normal findings. [facility] Medical History UTI (urinary tract infection) Osteopenia Pneumonia Elevated transaminase level Long-term use of immunosuppressant medication COVID-19 vaccine administered Hidradenitis suppurativa of left axilla Urge incontinence Hypercholesterolemia MRSA infection GERD (gastroesophageal reflux disease) Rheumatoid arthritis Hypothyroid Surgical History TMJ (sprain of temporomandibular joint) History of esophagogastroduodenoscopy (EGD) Hx of colonoscopy History of eye surgery Ulnar neuropathy at elbow of left upper extremity Plantar fasciitis, bilateral H/O tubal ligation Hx of tonsillectomy Inguinal hernia Family History Mother Myocardial infarct Father Lung cancer Paternal Uncle Bladder cancer Paternal Aunt Stomach cancer Maternal Uncle Myocardial infarct Social History Housing: House Are you a primary healthcare receptionist to a significant other at home: No Do you presently have visiting nurse or other home services: No Alcohol intake: current Alcohol intake frequency: a few times a month Alcohol type: wine and hard liquor Comment: 3-4 x a month glass of wine Patient Tobacco Use Status: Never used Tobacco e-Cigarette/Vaping Use: Never Used Second Hand Smoke Exposure: No Advance Directives Date on File: 09/17/20 service: No Current occupational status: employed 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 Chest Other: Chest breath sounds bilaterally. GI Other: Abdomen corpulent, soft, benign Extrem Other: No obvious clubbing Assessment & Plan Assessment & Plan (1) Mass of lower lobe of left lung: Code(s): R91.8 - Other nonspecific abnormal finding of lung field Category: Surgical Plan: Therapeutic options were reviewed with the patient including repeating CT scan 3 months time, considering IR biopsy of the lung lesion, or even a vats wedge resection with on-table frozen section. Patient would like to do the IR biopsy indirect further therapy based on these results. I also recommended a PET scan which will be ordered. She will see me after these 2 studies and further interventions and studies will be directed by the results of the above-mentioned studies and interventions. All questions answered. Orders: Orders PET CT fusion skull to thigh Today R91.8 - Other nonspecific abnormal finding of lung field CT biopsy lung LT Today R91.8 - Other nonspecific abnormal finding of lung field Coding Level of Care Code New Pt Level 4 (50704) Diagnoses Mass of lower lobe of left lung R91.8
== END 2024-03-06 13:56 | disposition home or self-care (01) ==
PROVIDERS: PCP Internal Medicine; Visit Provider Surgery
DX: R91.8 Other nonspecific abnormal finding of lung field (principal)
CPT/HCPCS: 99204

== ENCOUNTER 2024-04-11 08:11 | Outpatient (REF) | payer BC, SELFPAY | END 2024-04-11 08:12 | disposition home or self-care (01) | LOC: HO.PET 08:11 | PROVIDERS: PCP Internal Medicine; Visit Provider Surgery | DX: Z13.89 Encounter for screening for other disorder (principal) ==

== ENCOUNTER 2024-04-14 13:15 | Outpatient (REF) | payer BC, SELFPAY ==
--- NOTE | ~2024-04-14 | MM_ITS ---
EXAMINATION: DXA BONE DENSITY AXIAL HISTORY: Estrogen deficiency TECHNIQUE: [employer] Dual energy absorptiometry (DEXA) of the lumbar spine, total left hip, and femoral neck was performed. COMPARISON: Comparison is made with the prior examination dated 05/03/2020. FINDINGS: The bone mineral density of the lumbar spine is 0.957 with a T-score of -1.9, and a Z-score of -1.5. This represents a BMD change of -6.9% compared to the prior exam. This is statistically significant. The bone mineral density of the left total hip is 0.964 with a T-score of -0.3, and a Z-score of 0.0. This represents BMD change of -2.3% compared to the prior exam. This is not statistically significant. The bone mineral density of the left femoral neck is 0.924 with a T-score of -0.8, and a Z-score of -0.1. This represents BMD change of -5.0% compared to the prior exam. FRACTURE RISK: The FRAX index suggests a ten year probability of major osteoporotic fracture of 14.4%, and of hip fracture 0.8%. MM/XR DEXA axial skeleton IMPRESSION: Based on bone mineral density, and according to World Health Organization (WHO) criteria, the diagnosis is consistent with osteopenia. All bone density values are in grams per centimeter squared (g/cm2). Statistically, 68% of repeat scans fall within 1 SD (+/- 0.010 g/cm2 for AP spine L1-L4) and 1 SD (+/- 0.012 g/cm2 for femur total) FRAX is a trademark of the [employer]'s [employer] Met[employer] Bone Disease, a World Health Organization (WHO) Collaborating Center. Electronically signed by: Cristhian Noonan MD 04/17/2024 07:05 AM [facility]
--- OUTSIDE RECORDS SUMMARY | 2024-04-14 15:18 | XMS_ITS | Clinical Summary ---
Author Organization [facility] Address [address] [place] [address] Care Team Providers Care Senior Accounting Specialist Name Role Phone Unavailable Primary Care Provider Unavailabl e Surgical History Surgery Date Site/Laterality Comments TUBAL LIGATION PROCEDURE: HISTORICAL TUBAL LIGATION HERNIA REPAIR Bilateral PROCEDURE: HISTORICAL HERNIA REPAIR/ING; COMMENT: around age 8 y/o BLADDER SUSPENSION 2010 PROCEDURE: HISTORICAL BLADDER SUSPENSION; COMMENT: Dr. Maldonado, bladder sling EYE SURGERY PROCEDURE: PA TRABECULOPLASTY BY LASER SURGERY; COMMENT: right lasik on right OTHER SURGICAL HISTORY PROCEDURE: PA REPOSITIONING IO LENS PROSTHESIS REQ INC SPX; COMMENT: left eye FOOT SURGERY PROCEDURE: HISTORICAL FOOT SURGERY; COMMENT: plantar fascia repair bilateral OTHER SURGICAL HISTORY PROCEDURE: PA SUTURE NERVE REQ XTNSV MOBIL/TRPOS NERVE; COMMENT: left ulnar nerve UPPER GASTROINTESTINAL ENDOSCOPY 02/23/2012 PROCEDURE: PA UPPER GI ENDOSCOPY PERFORMED COLONOSCOPY 03/12/2009 PROCEDURE: HISTORICAL COLONOSCOPY; COMMENT: Up to cecum, good preparation, normal mucosa, random biopsy taken:Normal, small hematoma developed after a biopsy, bleeding after biopsy controlled with endoclips, normal colon exam COLONOSCOPY 04/04/2018 PROCEDURE: HISTORICAL COLONOSCOPY; COMMENT: Fair prep, no tumors or inflammation. Medical History Medical History Date Comments Hypothyroidism DX:Hypothyroidis m Rheumatoid arthritis(714.0) DX:R heumatoid arthritis(714.0) Asthma DX:Asthma Premenstrual dysphoria DX:Premen strual dysphoria Globus sensation 02/23/2012 DX:Globus sensa tion Hidradenitis axillaris 06/19/2012 DX:Hidrad enitis axillaris Crush injury of arm 09/13/2014 DX:Crush inj ury of arm; COMMENT: Left forearm 01/2014 Seropositive rheumatoid arth ritis (CMS/HCC) DX:Seropositive rheumatoid arthritis (HCC); COMMENT: Onset - 2003, RF positive. Treated with methotrexate and Remicade (failing response), changed to Humira -2005 and combination helpful. 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 Off/on meds late 1701-1734. Enbrel stopped because of recurrent infections. Leflunomide caused skin rash, summer 2013. * Asthma, mild intermittent, well-controlled 08/16/2007 DX:Asthma, mild intermittent , well-controlled Urinary incontinence, mixed 12/11/2014 DX:U rinary incontinence, mixed; COMMENT: Hx of bladder sling Hyperlipidemia 09/13/2015 DX:Hyperlipidemi a Lung nodule 04/08/2016 DX:Lung nodule; COMMENT: Known and stability documented in [address] Gastroesophageal reflux dise ase without esophagitis 05/01/2016 DX:Gastroesophageal reflux d isease without esophagitis Pneumonia 05/12/2016 DX:Pneumonia Fatty liver 08/07/2016 DX:Fatty liver Family History Medical History Relation Name Comments No Known Problems Brother No Known Problems Daughter Lung cancer Father smoker Colon cancer Father's side 1 Aunt, metati szed to breast Pancreatic cancer Father's side 2 uncle No Known Problems Maternal Grandfather No Known Problems Maternal Grandmother Arthritis Mother Diabetes Mother Heart attack Mother smoker Heart failure Mother Hypertension Mother No Known Problems Other No Known Problems Paternal Grandfather No Known Problems Paternal Grandmother No Known Problems Sister 1 Breast cancer Neg Hx Ovarian cancer Neg Hx Pancreatic cancer Neg Hx Prostate cancer Neg Hx Uterine cancer Neg Hx Relation Name Status Comments Brother Alive Daughter Father Alive Father's side 1 Father's side 2 Maternal Grandfather Maternal Grandmother Mother (Age 76) Other Paternal Grandfather Paternal Grandmother Sister 1 Alive Sister 2 Alive Social History Tobacco Use Types Packs/Day Years Used Date Smoking Tobacco: Never Smokeless Tobacco: Never Alcohol Use Standard Drinks/Week Comments Yes 0 (1 standard drink = 0.6 oz pur e alcohol) Comments Unknown Sex and Gender Information Value Date Recorded Sex Assigned at Not on file Legal Sex Female 9:13 AM EST Gender Identity Not on file Sexual Orientation Not on file Obstetrics History Plan of Treatment Health Maintenance Due Date Last Done Comments Hepatitis A Vaccines (1 of 2 - Risk 2-dose series) 01/10/1983 Zoster Vaccines (1 of 2) 01/10/2014 Pneumococcal Vaccine: 50+ Years (2 of 2 - PCV) 07/21/2015 07/20/2014 Pneumococcal Vaccine: Pediatrics (0 to 5 Years) and At-Risk Patients (6 to 64 Years) (2 of 2 - PCV) 07/21/2015 07/20/2014 COVID-19 Vaccine (3 - Pfizer risk series) 03/28/2020 02/29/2020, 02/05/2020 Cervical Cancer Screening: Pap Smear 07/04/2021 07/04/2018 Cholesterol Screening (Lipid Panel) 01/18/2022 Colorectal Cancer Screening: Colonoscopy 01/18/2022 Depression Screening 01/18/2022 HIV Screening 01/18/2022 Hepatitis C Screening 01/18/2022 Social Influencers of Health Screening 01/18/2022 Breast Cancer Screening 02/20/2022 02/20/19 21, 06/14/2018, 06/08/2017, Additional history exists Influenza Vaccine (#1) 2023 0, 11/15/2018, 12/16/2017, Additional history exists RSV Immunization Patients 60+ Years Old (1 - Risk 60-74 years 1-dose series) 2024 DTaP,Tdap,and Td Vaccines (3 - Td or Tdap) 10/04/2029 10/05/2019, 06/30/2011 Hepatitis B Vaccines Completed 08/24/2012, 03/30/2012, 02/24/2012 HIB Vaccines Aged Out No longer eligi ble based on patient's age to complete this topic HPV Vaccines Aged Out No longer eligi ble based on patient's age to complete this topic IPV Vaccines Aged Out No longer eligi ble based on patient's age to complete this topic MMR Vaccines Aged Out No longer eligi ble based on patient's age to complete this topic Meningococcal ACWY Vaccine Aged Out N o longer eligible based on patient's age to complete this topic Meningococcal B Vacine Aged Out No lo nger eligible based on patient's age to complete this topic RSV Immunization Patients Under 20 months Aged Out No longer eligible based on patient's age to complete this topic Varicella Vaccines Aged Out No longer eligible based on patient's age to complete this topic Procedures Procedure Name Priority Date/Time Associated Diagnosis Comments SCR MAMMO BI INCL CAD Routine 02/21/2020 5:51 PM EST Encounter for screening mammogram for malignant neoplasm of breast PAP SMEAR Routine 07/04/2018 from Last 3 Months or Most Recently Relevant to Health Maintenance Results * SCR MAMMO BI INCL CAD (02/21/2020 5:51 PM EST) Anatomical Region Laterality Modality Radiographic Bibiana ging 06/14/2018 10:0 0 AM EDT Narrative 02/22/2020 11:16 AM EST This is a summary report. The complete report is available in the patient's medical record. If you cannot access the medical record, please contact the sending organization for a detailed fax or copy. Full field digital screening mammography, reviewed with CAD and compared to previous. ??The breasts are composed of fatty and fibroglandular tissue. ??No suspicious mass, architectural distortion or suspicious calcifications are identified. IMPRESSION: : No mammographic evidence of malignancy. BIRADS 1-Negative; N. 5 year breast cancer risk assessment 1.1 % Lifetime breast cancer risk assessment 7.2 % Breast cancer risk category Low (<15%) Procedure Note Dionne Randolph MD - 02/03/2022 This is a summary report. The complete report is available in thepatient's medical record. If you cannot access the medical record, pleasecontact the sending organization for a detailed fax or copy. Full field digital screening mammography, reviewed with CAD and comparedto previous. The breasts are composed of fatty and fibroglandular tissue.No suspicious mass, architectural distortion or suspicious calcificationsare identified. IMPRESSION: : No mammographic evidence of malignancy. BIRADS 1-Negative; N. 5 year breast cancer risk assessment 1.1 % Lifetime breast cancer risk assessment 7.2 % Breast cancer risk category Low (<15%) us Issac Wilson MD IMG XR PROCEDURES Final Resul t * Pap smear (07/04/2018) 07/04/2018 Narrative HISTORICAL TESTING LAB RESULTING AGENCY - 07/06/2018 4:50 PM EDT [id number] THINPREP PAP, IMAGED: NEGATIVE FOR SQUAMOUS INTRAEPITHELIAL LESION AND MALIGNANCY . SHEEBA EDWARDS(ASCP) (CASE ELECTRONICALLY SIGNED 07 06 2018) RESULT OF APTIMA HIGH RISK HPV ASSAY: HIGH RISK HPV: ??NEGATIVE (SEROTYPES 16,18,31,33,35,39,45,51,52,56,58,59,66,68) COMPLETED ON 2018-07-06 ADEQUACY: SATISFACTORY ENDOCERVICAL/TRANSFORMATION ZONE COMPONENT ABSENT. SOURCE: THINPREP PAP HPV ANY DX: ??REFLEX 16 AND 18, CERVICAL, IMAGED CLINICAL INFORMATION: HPV ANY DIAGNOSIS. LMP 09/05/16, PAP HX NEG, Z12.4 us Eileen Galvan MD LAB CYTOLOGY ORDERABLES Fin al Result HISTORICAL TESTING LAB RESULTING AGENCY from Last 3 Months or Most Recently Relevant to Health Maintenance
== END 2024-04-14 13:16 | disposition home or self-care (01) ==
LOC: HO.MAMMO 13:15
PROVIDERS: PCP Internal Medicine; Visit Provider Student in an Organized Health Care Education/Training Program
DX: Z13.820 Encounter for screening for osteoporosis (principal); M85.80 Other specified disorders of bone density and structure, unspecified site; M06.09 Rheumatoid arthritis without rheumatoid factor, multiple sites; E28.39 Other primary ovarian failure
CPT/HCPCS: 77080

== ENCOUNTER → 2024-04-14 13:30 | Outpatient (BNV) | payer BC, SELFPAY | PROVIDERS: PCP Internal Medicine; Visit Provider Radiology Diagnostic Radiology | DX: E28.39 Other primary ovarian failure (principal) | CPT/HCPCS: 77080 ==

== ENCOUNTER 2024-04-18 08:34 | Outpatient (REF) | payer BC, SELFPAY ==
--- NOTE | ~2024-04-18 | PE_ITS ---
EXAMINATION: FLUORINE-18 FDG PET/CT SCAN CLINICAL INFORMATION: Solitary pulmonary nodule. TECHNIQUE: 68 minutes following the intravenous administration of 16.4 mCi of fluorine 18 FDG, images from the skull base to proximal thigh were obtained using a combined PET/CT scanner with CT scan based attenuation correction. No oral contrast was given. No intravenous contrast was administered. Transverse, coronal, sagittal, and volume reconstruction projections were obtained. The patient's blood glucose as determined by a finger stick, was 86 mg/dL immediately prior to injection. The radiotracer was injected intravenously through left antecubital vein, without any complications. Total CT exam dose-length product 916 mGy-cm. * These CT images were obtained using dose optimization techniques as appropriate, variously including the following: Automated exposure control * Adjustment of mA and/or kV according to patient size (this includes techniques or standardized protocols for targeted exams where dose is matched to indication/reason for exam; i.e. extremities or head) * Use of iterative reconstruction technique COMPARISON: None available. FINDINGS: HEAD AND NECK: No abnormal radiotracer uptake. No large intracranial hemorrhage, acute territorial infarct or significant shift of midline structures. CHEST: Ports and Devices: None Lungs: There is no FDG activity seen in the left lower lobe pulmonary nodule measuring 8 mm on the present exam. Measures 9 mm on the previous study. No additional areas of abnormal metabolic activity seen in lung parenchyma. Pleura: No significant pleural effusion. Lymph Nodes: No tracer-avid mediastinal, hilar or internal mammary or axillary lymphadenopathy. Mediastinum: There is no significant pericardial effusion/thickening. Breasts/Chest Wall: No abnormal radiotracer uptake. ABDOMEN/PELVIS: Liver/Biliary System: No focal tracer-avid liver lesion. The gallbladder appears unremarkable. Pancreas: Normal. Spleen: No abnormal radiotracer uptake. No evidence of splenomegaly. Adrenal Glands: No abnormal radiotracer uptake. Kidneys: No hydronephrosis, hydroureter or renal calculi bilaterally. Bowel: There is no significant bowel dilatation to suggest obstruction. Lymph Nodes: No tracer avid retroperitoneal, mesenteric or pelvic and/or groin lymphadenopathy. Pelvic Organs: The urinary bladder is underdistended. MUSCULOSKELETAL: Unremarkable VASCULAR: Unremarkable PET/PET CT fusion skull to thigh IMPRESSION: There is a 8 mm nodule in the left lower lobe subpleural location on CT chest which is metabolically not active at this time. No FDG activity seen on whole body PET scan. Electronically signed by: Rodriguez Smalls MD 04/20/2024 07:43 AM EST
--- OUTSIDE RECORDS SUMMARY | 2024-04-18 09:02 | XMS_ITS | Clinical Summary ---
Author Organization [facility] Address [address] [place] [address] Care Team Providers Care Club Waiter/Waitress Name Role Phone Unavailable Primary Care Provider Unavailabl e Surgical History Surgery Date Site/Laterality Comments TUBAL LIGATION PROCEDURE: HISTORICAL TUBAL LIGATION HERNIA REPAIR Bilateral PROCEDURE: HISTORICAL HERNIA REPAIR/ING; COMMENT: around age 8 y/o BLADDER SUSPENSION 2010 PROCEDURE: HISTORICAL BLADDER SUSPENSION; COMMENT: Dr. Maldonado, bladder sling EYE SURGERY PROCEDURE: AK TRABECULOPLASTY BY LASER SURGERY; COMMENT: right lasik on right OTHER SURGICAL HISTORY PROCEDURE: AK REPOSITIONING IO LENS PROSTHESIS REQ INC SPX; COMMENT: left eye FOOT SURGERY PROCEDURE: HISTORICAL FOOT SURGERY; COMMENT: plantar fascia repair bilateral OTHER SURGICAL HISTORY PROCEDURE: AK SUTURE NERVE REQ XTNSV MOBIL/TRPOS NERVE; COMMENT: left ulnar nerve UPPER GASTROINTESTINAL ENDOSCOPY 02/23/2012 PROCEDURE: AK UPPER GI ENDOSCOPY PERFORMED COLONOSCOPY 03/12/2009 PROCEDURE: [...] abscesses due to MRSA. Off/on meds late 2708-1214. Enbrel stopped because of recurrent infections. Leflunomide [...] RESULTING AGENCY - 07/06/2018 4:50 PM EDT [id number] THINPREP PAP, IMAGED: NEGATIVE FOR SQUAMOUS INTRAEPITHELIAL [...]
--- OUTSIDE RECORDS SUMMARY | 2024-04-18 09:02 | XMS_ITS | Encounter Summary ---
Author Organization [facility] Address [address] [place] [address] Care Team Providers Care Rib Cloth Knitter Name Role Phone Issac Wilson MD Primary Care Provider Frances Wood MD Primary Care Provider Unavail able Issac Wilson MD Primary Care Provider Jeri Ramírez, Pcp Primary Care Provider Unavailabl e Encounter Details Date Type Department Care Team Description 09/15/2018 Orders Only Adult Medicine [address] [address] Issac Wilson MD Screening examination for pulmonary tuberculosis Social History Tobacco Use Types Packs/Day Years Used Date Smoking Tobacco: Never Smokeless Tobacco: Never Alcohol Use Standard Drinks/Week Comments Yes 0 (1 standard drink = 0.6 oz pur e alcohol) occ Sex Assigned at Date Recorded Not on file Job Start Date Occupation Industry Not on file Not on file Not on file documented as of this encounter Plan of Treatment Not on file documented as of this encounter Procedures Procedure Name Priority Date/Time Associated Diagnosis Comments CHG SKIN TEST TUBERCULOSIS INTRADERMAL Routine 09/15/2018 10:14 AM EDT Screening examination for pulmonary tuberculosis documented in this encounter Results * TB INTRADERMAL TEST (09/15/2018 10:14 AM EDT) PPD Induration (PPD) 0mm 09/15/2018 10:1 4 AM EDT Issac Wilson MD LAB documented in this encounter Visit Diagnoses Diagnosis Screening examination for pulmonary tuberculosis documented in this encounter Care Teams Rib Cloth Knitter Relationship Specialty Start Date End Date Issac Wilson MD PCP - General Internal Medicine 09/28/13 12/20/18 Frances Gloria MD PCP - General Internal Medicine 12/21/18 12/21/19 Issac Wilson MD PCP - General Internal Medicine 12/22/19 03/12/20 [facility] PCP - General Internal Medicine 03/13/20 documented as of this encounter
--- OUTSIDE RECORDS SUMMARY | 2024-04-18 09:02 | XMS_ITS | Encounter Summary ---
Author Organization [facility] Address [address] [place] [address] Care Team Providers Care Vocational Adviser Name Role Phone Issac Wilson MD Primary Care Provider Frances Wood MD Primary Care Provider [facility] Issac Wilson MD Primary Care Provider Jeri Ramírez, Pcp Primary Care Provider Unavailabl e Reason for Visit * Reason Onset Date Comments Mychart Rx Refill 08/25/2018 Encounter Details Date Type Department Care Team Description 08/25/2018 Refill Adult Medicine [address] [address] Issac Wilson MD Mychart Rx Refill Social History Tobacco Use Types Packs/Day Years Used Date Smoking Tobacco: Never Smokeless Tobacco: Never Alcohol Use Standard Drinks/Week Comments Yes 0 (1 standard drink = 0.6 oz pur e alcohol) occ Sex Assigned at Date Recorded Not on file Job Start Date Occupation Industry Not on file Not on file Not on file documented as of this encounter Miscellaneous Notes * Telephone Encounter - Mirian Sarmiento M.A. - 08/25/2018 11:37 AM EDT Faxed to pharmacy * Telephone Encounter - Alberta Katz M.A. - 08/25/2018 10:28 AM EDT Lab Results Component Value Date NA 142 10/07/2017 K 4.6 10/07/2017 CO2 24.6 10/07/2017 CL 103 10/07/2017 BUN 13 10/07/2017 CREAT 0.73 07/29/2018 CA 10.1 10/07/2017 GFR > 60 07/29/2018 Lab Results Component Value Date TSH 1.25 10/07/2017 Last ov with pcp 08/15/18 * Telephone Encounter - Alberta Katz M.A. - 08/25/2018 10:28 AM EDTFrom: Marian Doran To: Issac Wilson MD Sent: 08/25/2018 10:25 AM EDT Subject: Medication Renewal Request Original authorizing provider: MD Marian Graham would like a refill of the following medications: levothyroxine (SYNTHROID, LEVOTHROID) 50 MCG tablet [Issac Wilson MD] oxybutynin (DITROPAN-XL) 5 MG 24 hr tablet [Issac Wilson MD] Preferred pharmacy: [facility] [address] [place] [address] RICHI KNIGHT AT [facility] Comment: no refills remaining documented in this encounter Plan of Treatment Not on file documented as of this encounter Visit Diagnoses Diagnosis Hypothyroidism due to acquired atrophy of thyroid documented in this encounter Care Teams Vocational Adviser Relationship Specialty Start Date End Date Issac Wilson MD PCP - General Internal Medicine 09/28/13 12/20/18 Frances Gloria MD PCP - General Internal Medicine 12/21/18 12/21/19 Issac Wilson MD PCP - General Internal Medicine 12/22/19 03/12/20 [facility], Pcp PCP - General Internal Medicine 03/13/20 documented as of this encounter
--- OUTSIDE RECORDS SUMMARY | 2024-04-18 09:02 | XMS_ITS | Encounter Summary ---
Author Organization [facility] Address [address] [place] [address] Care Team Providers Care Job Training Specialist Name Role Phone Issac Wilson MD Primary Care Provider Frances Wood MD Primary Care Provider [facility] Issac Wilson MD Primary Care Provider Jeri Ramírez, Pcp Primary Care Provider Unavailabl e Reason for Visit * Reason Comments E-prescribe Rx Request Encounter Details Date Type Department Care Team Description 12/13/2018 Refill Adult Medicine [facility] [address] [place] [id number] [facility] [address] [place] [address] [id number] E-prescribe Rx Request Social History Tobacco Use Types Packs/Day Years [...] encounter Miscellaneous Notes * Telephone Encounter - Rosanne Rios - 12/13/2018 12:55 PM EDT Patient would like script to be: E-PRESCRIBED/FAXED TO PHARMACY WHEN WAS THE PATIENT'S LAST APPOINTMENT IN ADULT MEDICINE? 08-15-18 WHEN WAS THE LAST TIME THE PATIENT SAW THEIR PCP? Same as above Does patient have an upcoming appointment? Yes 12-19-18 (THE MEDICATION REQUESTED IS ON THE MED LIST ABOVE) All of the medications requested were on the CURRENT MEDS list Did you check the Pharmacy information above?: YES Patient wants: 90 -day supply Is this a mail order prescription request ? NO If the refill is from a FAXED refill request what is the RX # listed on the fax? N/A Patients current insurance carrier is: Payor: D[employer]AN POS / Plan: PPO $30 [address] [id number] / ProductType: PPO [id number] documented in this encounter Plan of Treatment Not on file documented as of this encounter Visit Diagnoses Diagnosis Globus sensation Gastrointestinal malfunction arising from mental factors Gastroesophageal reflux disease without esophagitis Esophageal reflux Hiatal hernia Diaphragmatic hernia without mention of obstruction or gangrene documented in this encounter Care Teams Job Training Specialist Relationship Specialty Start Date End Date Issac Wilson MD PCP - General Internal Medicine 09/28/13 12/20/18 Frances Gloria MD PCP - General Internal Medicine 12/21/18 12/21/19 Issac Wilson MD PCP - General Internal Medicine 12/22/19 [facility] 03/13/20 documented as of this encounter
--- OUTSIDE RECORDS SUMMARY | 2024-04-18 09:02 | XMS_ITS | Encounter Summary ---
Author Organization [facility] Address [address] [place] [address] Care Team Providers Care Editor Magazine Name Role Phone Community, Pcp Primary Care Provider Unavailabl e Encounter Details Date Type Department Care Team Description 03/13/2020 Telephone Adult [address] [address] Community, Pcp Social History Tobacco Use Types Packs/Day Years [...] documented as of this encounter Visit Diagnoses Not on filedocumented in this encounter Care Teams Editor Magazine Relationship Specialty Start Date End Date Community, Pcp PCP - General Internal Medicine 03/13/20 documented as of this encounter
--- OUTSIDE RECORDS SUMMARY | 2024-04-18 09:02 | XMS_ITS | Encounter Summary ---
Author Organization [facility] Address [address] [place] [address] Care Team Providers Care Drywall Hanger Framer Name Role Phone Frances Gloria MD Primary Care Provider Issac Reynolds MD Primary Care Provider Jeri Ramírez, Pcp [facility] Encounter Details Date Type Department Care Team Description 06/28/2019 Pt. Non Urgent Medical Question Rheumatology - [address] [address] Brendon Gale MD Social History Tobacco Use Types Packs/Day Years [...] encounter Miscellaneous Notes * Telephone Encounter - Hoa Dooley L.P.N. - 06/29/2019 9:12 AM EDTFrom: Marian Doran To: Brendon Gale MD Sent: 06/28/2019 9:20 PM EDT Subject: Appointment I have an appointment with Dr. Gale on July 19 but I am having pain and slight swelling on my right elbow. I was wondering if I could get an earlier appointment to have this checked out. Thank you, Marian documented in this encounter Plan of Treatment Not on file documented as of this encounter Visit Diagnoses Not on filedocumented in this encounter Care Teams Drywall Hanger Framer Relationship Specialty Start Date End Date Frances Gloria MD PCP - General Internal Medicine 12/21/18 12/21/19 Issac Wilson MD PCP - General Internal Medicine 12/22/19 03/12/20 Eusebia Ramírez PCP - General Internal Medicine 03/13/20 documented as of this encounter
--- OUTSIDE RECORDS SUMMARY | 2024-04-18 09:02 | XMS_ITS | Encounter Summary ---
Author Organization [facility] Address [address] [place] [address] Care Team Providers Care Overlock Hemmer Name Role Phone Issac Wilson MD Primary Care Provider Frances Wood MD Primary Care Provider Unavail able Issac Wilson MD Primary Care Provider Jeri Ramírez Pcp Primary [facility] Encounter Details Date Type Department Care Team Description 03/15/2015 Etch Operator [employer] Wafers Report Medical Records [address] [place] [id number] Justino Tracey Social History Tobacco Use Types Packs/Day Years [...] on filedocumented in this encounter Care Teams Overlock Hemmer Relationship Specialty Start Date End Date Issac Wilson MD PCP - General Internal Medicine 09/28/13 12/20/18 Frances Gloria MD PCP - General Internal Medicine 12/21/18 12/21/19 Issac Wilson MD PCP - General Internal Medicine 12/22/19 03/12/20 Eusebia Ramírez PCP - General Internal Medicine 03/13/20 documented as of this encounter
--- OUTSIDE RECORDS SUMMARY | 2024-04-18 09:02 | XMS_ITS | Clinical Summary ---
Author Organization [facility] Address [address] [place] [address] Care Team Providers Care Assistant Clinical Nurse Manager Name Role Phone Community, Pcp Primary Care Provider Unavailabl e Allergies Active Allergy Reactions Severity Noted Date Comments Enbrel Rash/Dermatitis 11/20/2013 Infection increased Tofacitinib OTHER 09/24/2020 Elevated LFT's Medications Medication Sig Dispensed Refills Start Date End Date Status Calcium Carbonate-Vitamin D (CALCIUM-VITAMIN D3 OR) Take by mouth daily. 0 Active pantoprazole (PROTONIX) 40 MG tablet Take 1 Tab by mouth every morning (before breakfast) for 180 days. 30 Tab 5 07/25/2019 Active oxybutynin (DITROPAN-XL) 5 MG 24 hr tablet TAKE 1 TABLET BY MOUTH DAILY(APPT NEEDED FOR MORE REFILLS) 15 tablet 0 07/19/2020 Active citalopram (CELEXA) 20 MG tabletIndications:Int ercostal neuralgia,Anxiety Take 1 tablet by mouth daily. 90 tablet 3 10/09/2020 Active Upadacitinib ER (Rinvoq) 15 MG TABLET SR 24 HRIndications:Seropos itive rheumatoid arthritis (HCC) Take 1 tablet by mouth daily. 90 tablet 0 12/06/2020 Active Active Problems Problem Noted Date Hidradenitis suppurativa 10/24/2019 Overview: Surgery - left axilla - 09/2020 Thoracic spondylosis 01/25/2019 History of rib fracture 01/25/2019 Unexplained endometrial cells on cervica l Pap smear 07/04/2018 Last Assessment & Plan: After clarifying that indeed Marian was still having periods at the time of her last Pap smear, and given no significant risk factors for endometrial cancer, no endometrial biopsy warranted. Recommended we repeat Pap smear today earlier than usual. If normal, no further follow up indicated. Fatty liver 08/07/2016 Pneumonia - hx staph aureus pneumonia re sponded to vancomycin 05/12/2016 Gastroesophageal reflux disease without esophagitis 05/01/2016 Lung nodule 04/08/2016 Overview: Known and stability documented in [address] Hyperlipidemia 09/13/2015 Urinary incontinence, mixed 12/11/2014 Overview: Hx of bladder sling Globus sensation 02/23/2012 Overview: Normal EGD 02/23/2012. Asthma, mild intermittent, well-controll ed 08/16/2007 Hypothyroidism 06/18/2007 Seropositive rheumatoid arthritis Overview: Onset ~ 2003, RF positive. Treated with methotrexate and Remicade (failing response), changed to Humira ~2005 and combination helpful. 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 Off/on meds late [id number]. Enbrel stopped because of recurrent infections. Leflunomide caused skin rash, summer 2013. Orencia started 2013; methotrexate added 12/29 but stopped due to LFT elevations Xeljanz in place of Orencia Feb 2015 - helpful but further LFT elevations 02/03. Rinvoq in place of Xeljanz 01/2020 Premenstrual dysphoria Immunizations Name Administration Dates Next Due COVID-19 ([employer]) Pt Reported 02/29/2020, 020 Hepatitis B > 19yrs 08/24/2012,03/30/2012,2012 Influenza (> 6 Months) 11/15/2018,2017,10/26/2016,12/26,09/21/2014,10/12/2013 Influenza Vaccine-preservati ve Free-quadrivalent 4 Years 10/24/2019 PPD-RBMG 09/15/2018, 5,08/05/2012,02/18 Pneumoccoccal(Adult) Polysac charide PPSV23 07/20/2014 Tdap 10/05/2019,06/30/2011 Family History Medical History Relation Name Comments No Known Problems Brother No Known Problems Daughter CA Lung Father smoker CA Colon Father's side 1 Aunt, metati szed to breast CA of Pancreas Father's side 2 uncle No Known Problems Maternal Grandfather No Known Problems Maternal Grandmother Arthritis Mother CHF Mother Diabetes Mother Hypertension Mother MS Mother smoker No Known Problems Other No Known Problems Paternal Grandfather No Known Problems Paternal Grandmother No Known Problems Sister 1 CA Breast Negative Hx CA Ovarian Negative Hx Cancer of the Pancreas Negative Hx Cancer of the Prostate Negative Hx Uterine Cancer Negative Hx Relation Name Status Comments Brother Alive [...] file Not on file Not on file Last Filed Vital Signs Vital Sign Reading Time Taken Comments Blood Pressure 120/70 09/24/2020 8:15 AM EDT Pulse 72 09/24/2020 8:15 AM EDT Temperature 36.6 ??C (97.8 ??F) 10/24/2019 8:00 AM ED T Respiratory Rate 12 09/24/2020 8:15 AM EDT Oxygen Saturation 98% 07/20/2019 8:14 AM EDT Inhaled Oxygen Concentration - - Weight 89.8 kg (198 lb) 09/24/2020 8:15 AM EDT Height 165.1 cm (5' 5 ) 09/24/2020 8:15 AM EDT Body Mass Index 32.95 09/24/2020 8:15 AM EDT Plan of Treatment Health Maintenance Due Date Last Done Comments SHINGLES VACCINE (1 of 2) 01/10/2014 BASELINE HEALTH EXAM 40-64 10/08/201910/07, 10/07/2017, 10/07/2017, Additional history exists MAMMOGRAM 02/20/2021 02/21/2020, 05/18, 06/08/2017, Additional history exists CERVICAL CANCER SCREENING 07/04/20212018, 11/05/2015, 04/20/2012, Additional history exists CHOLESTEROL SCREENING 10/07/2022 10/07/2017 , 07/21/2016, 11/18/2015, Additional history exists COLON CANCER SCREENING 04/04/2023 9, 03/12/2009, 03/12/2009 Covid-19 Vaccine (2022-2 4 season) 2023 02/29/2020, 02/05/2020 INFLUENZA (#1) 2023 10/24/2019, 02/2018 (External Completion of Vaccination per patient), 11/15/2018, Additional history exists BMI CHECK/ADVISE 02/16/2024 09/24/2020, 11/2020, 01/23/2020, Additional history exists PNEUMOCOCCAL VACCINE FOR HIG H RISK PATIENTS (#2) 01/10/2029 07/20/2014 DTAP/TDAP/TD (3 - Td or Tdap) 10/04/2029 10/05/2019, 06/30/2011 HEPATITIS C SCREENING Completed 04/18/2019, 013 Care Teams Assistant Clinical Nurse Manager Relationship Specialty Start Date End Date Community, Pcp PCP - General Internal Medicine 03/13/20
--- OUTSIDE RECORDS SUMMARY | 2024-04-18 09:02 | XMS_ITS | Encounter Summary ---
Author Organization [facility] Address [address] [place] [address] Care Team Providers Care Legal Administrative Secretary Name Role Phone Issac Wilson MD Primary Care Provider Frances Wood MD Primary Care Provider [facility] Issac Wilson MD Primary Care Provider Jeri Ramírez, Pcp Primary Care Provider Miryam sherman Encounter Details Date Type Department Care Team Description 12/18/2018 Pt. Non Urgent Medical Question Rheumatology - [address] [address] Brendon Gale MD Social History Tobacco Use [...] Telephone Encounter - Hoa Dooley L.P.N. - 12/19/2018 8:23 AM ESTFrom: Marian Doran To: Brendon Gale MD Sent: 12/18/2018 4:43 PM EST Subject: Xebret Gale, Could you please call in a prescription to [facility]? This is my new insurance for prescriptions. I don't get Xeglenz through [facility] mail any longer. The phone number is . I have beenwithout this medication close to a month now. I'm doing good no severe pain. There was confus ion and [facility] so they need one called in. Thank you for your attention to this matter. Marian Doran documented in this encounter Plan of Treatment Not on file documented as of this encounter Visit Diagnoses Not on filedocumented in this encounter Care Teams Legal Administrative Secretary Relationship Specialty Start Date End Date Issac Wilson MD PCP - General Internal Medicine 09/28/13 12/20/18 Frances Gloria MD PCP - General Internal Medicine 12/21/18 12/21/19 Issac Wilson MD PCP - General Internal Medicine 12/22/19 03/12/20 [facility], Pcp PCP - General Internal Medicine 03/13/20 documented as of this encounter
--- OUTSIDE RECORDS SUMMARY | 2024-04-18 09:03 | XMS_ITS | Encounter Summary ---
Author Organization [facility] Address [address] [place] [address] Care Team Providers Care Building Contractor Name Role Phone Issac Wilson MD Primary Care Provider Frances Wood MD Primary Care Provider [facility] Issac Wilson MD Primary Care Provider Jeri Ramírez Pcp Primary Care Provider [facility] e Encounter Details Date Type Department Care Team Description 09/01/2016 Pt. Non Urgent Medical Question Adult Medicine [address] [address] Jose Maria Carlisle PA-C [address] [place] [address] Social History Tobacco Use Types Packs/Day Years [...] on filedocumented in this encounter Care Teams Building Contractor Relationship Specialty Start Date End Date Issac Wilson MD PCP - General Internal Medicine 09/28/13 12/20/18 Frances Gloria MD PCP - General Internal Medicine 12/21/18 12/21/19 Issac Wilson MD PCP - General Internal Medicine 12/22/19 03/12/20 Community, Pcp PCP - General Internal Medicine 03/13/20 documented as of this encounter
--- OUTSIDE RECORDS SUMMARY | 2024-04-18 09:03 | XMS_ITS | Encounter Summary ---
Author Organization [facility] Address [address] [place] [address] Care Team Providers Care Sod Farmer Name Role Phone Frances Gloria MD Primary Care Provider [facility] Issac Wilson MD Primary Care Provider Jeri ervin [facility], Pcp Primary Care Provider [facility] e Encounter Details Date Type Department Care Team Description 08/04/2019 Refill Gastroenterology - [address] [place] [id number] Jeffrey Mazariegos MD Social History Tobacco Use Types Packs/Day [...] encounter Miscellaneous Notes * Telephone Encounter - Hue Vera M.A. - 08/07/2019 9:23 AM EDT [place] 02/06/2019 documented in this encounter Plan of Treatment Not on file documented as of this encounter Visit Diagnoses Not on filedocumented in this encounter Care Teams Sod Farmer Relationship Specialty Start Date End Date Frances Gloria MD PCP - General Internal Medicine 12/21/18 12/21/19 Issac Wilson MD PCP - General Internal Medicine 12/22/19 03/12/20 Community, Pcp PCP - General Internal Medicine 03/13/20 documented as of this encounter
--- OUTSIDE RECORDS SUMMARY | 2024-04-18 09:03 | XMS_ITS | Encounter Summary ---
Author Organization [facility] Address [address] [place] [address] Care Team Providers Care Belt Knife Feeder Name Role Phone Frances Gloria MD Primary Care Provider Issac Reynolds MD Primary Care Provider Jeri Ramírez, Pcp Primary Care Provider [facility] Encounter Details Date Type Department Care Team Description 04/20/2019 Pt. Non Urgent Medical Question Rheumatology - [address] [address] Brendon Gale MD Chest wall tenderness (Primary Dx); History of rib fracture Social History Tobacco Use Types Packs/Day Years [...] encounter Miscellaneous Notes * Telephone Encounter - Reymundo Epstein M.A. - 04/21/2019 9:07 AM ESTFrom: Marian Doran To: Brendon Gale MD Sent: 04/20/2019 5:12 PM EST Subject: ribs Dr. Gale, If you think the bone scan would show anything then I would like to do that so we can figure out what is causing this pain. Or maybe an MRI if that would show more? Let me know what you think. Marian documented in this encounter Plan of Treatment Not on file documented as of this encounter Visit Diagnoses Diagnosis Chest wall tenderness- Primary Painful respiration History of rib fracture Personal history of traumatic fracture documented in this encounter Care Teams Belt Knife Feeder Relationship Specialty Start Date End Date Frances Gloria MD PCP - General Internal Medicine 12/21/18 12/21/19 Issac Wilson MD PCP - General Internal Medicine 12/22/19 03/12/20 [facility] PCP - General Internal Medicine 03/13/20 documented as of this encounter
--- OUTSIDE RECORDS SUMMARY | 2024-04-18 09:03 | XMS_ITS | Encounter Summary ---
Author Organization [facility] Address [address] [place] [address] Care Team Providers Care Technical Fellow Name Role Phone Issac Wilson MD Primary Care Provider Frances Wood MD Primary Care Provider [facility] Issac Wilson MD Primary Care Provider Jeri Ramírez, Pcp Primary Care Provider Unavailabl e Reason for Visit * Reason Onset Date Comments Infiltrates 03/19/2016 Encounter Details Date Type Department Care Team Description 03/19/2016 Telephone Adult Medicine [address] [address] Matthew Carlisle PA-C [address] [place] [id number] Infiltrates Social History Tobacco Use Types Packs/Day Years [...] encounter Miscellaneous Notes * Telephone Encounter - Ayaka Boston R.N. - 03/19/2016 9:58 AM EST See Qu[employer] message for reference also. Pt reports generalized weakness/body aches. Pt states + nasal/chest congestion. + productive cough - cream colored sputum. Pt reports bilateral ears are blocked. Pt states + wheezing. + left chest wall pain with moving/deep breathing/coughing. Pt A/Ox3, no C/O dizziness, + generalized weakness, + VERAS, no changes to CMS, no swelling reported,speech clear - able to speak in clear/full sentences, , no N/V/D, + fever (99), abdomen nontender, able to drink - decreased appetite, able to void, ambulates with steady gait. Reviewed homecare following the Cough Protocol. RN reinforced telephone consultation. Reviewed withthe Pt the signs and symptoms to watch for that would require immediate attention. If symptoms change, worsen or increase in intensity, to call back immediately. Pt verbalized understanding and agreed with plan. Forwarding to Humera Carlisle for review and advice. * Telephone Encounter - Elly Gonsalez - 03/19/2016 8:56 AM EST Symptoms patient is presenting: patient saw matthew On wednesday For pneumonia Given medication she isnot any better // Offered appt today she is not sure if matthew Wants her to go to er She left my chart msg earlier today for matthew If pain or injury related was it due to an accident at work or from a motor vehicle accident? NO If yes, gather 3rd democrat insurance information Date of accident/Injury: no How long has patient had these symptoms?: Wednesday PCP: Issac Wilson Payor: LIVAN / Plan: PPO $15 [id number] / Product Type: EPO documented in this encounter Plan of Treatment Not on file documented as of this encounter Visit Diagnoses Not on filedocumented in this encounter Care Teams Technical Fellow Relationship Specialty Start Date End Date Issac Wilson MD PCP - General Internal Medicine 09/28/13 12/20/18 Frances Gloria MD PCP - General Internal Medicine 12/21/18 12/21/19 Issac Wilson MD PCP - General Internal Medicine 12/22/19 03/12/20 [facility], Pcp PCP - General Internal Medicine 03/13/20 documented as of this encounter
--- OUTSIDE RECORDS SUMMARY | 2024-04-18 09:03 | XMS_ITS | Encounter Summary ---
Author Organization [facility] Address [address] [place] [address] Care Team Providers Care Bone Glue Maker Name Role Phone Issac Wilson MD Primary Care Provider Frances Wood MD Primary Care Provider [facility] Issac Wilson MD Primary Care Provider Jeri Ramírez Pcp Primary Care [facility] Reason for Visit * Reason Onset Date Comments My Chart Appointment 11/03/2017 dizziness 11/03/2017 Headache 11/03/2017 Encounter Details Date Type Department Care Team Description 11/03/2017 Telephone Adult Medicine [address] [address] Issac Wilson MD My Chart Appointment; dizziness; Headache Social History Tobacco Use Types Packs/Day Years [...] encounter Miscellaneous Notes * Telephone Encounter - Sander Brandt L.P.N. - 11/03/2017 8:37 AM EDT Called patient left message for patient to call triage nurse * Telephone Encounter - Lissa Perdue - 11/03/2017 7:34 AM EDT Patient Comments: ?? Annual Physical ?? Headache, dizziness, pressure in ears just not feeling ?? right. ?? documented in this encounter Plan of Treatment Not on file documented as of this encounter Visit Diagnoses Not on filedocumented in this encounter Care Teams Bone Glue Maker Relationship Specialty Start Date End Date Issac Wilson MD PCP - General Internal Medicine 09/28/13 12/20/18 Frances Gloria MD PCP - General Internal Medicine 12/21/18 12/21/19 Issac Wilson MD PCP - General Internal Medicine 12/22/19 [facility] 03/13/20 documented as of this encounter
--- OUTSIDE RECORDS SUMMARY | 2024-04-18 09:03 | XMS_ITS | Encounter Summary ---
Author Organization [facility] Address [address] [place] [address] Care Team Providers Care Rubber Trimmer Name Role Phone Issac Wilson MD Primary Care Provider Frances Wood MD Primary Care Provider Unavail able Issac Wilson MD Primary Care Provider Jeri Ramírez Pcp Primary Care Provider Unavailabl e Reason for Visit * Reason Onset Date Comments Medication 03/04/2018 Encounter Details Date Type Department Care Team Description 03/04/2018 Telephone Gastroenterology - [address] [place] [id number] Senthil Reyes MD Medication Social History Tobacco Use Types Packs/Day Years [...] encounter Miscellaneous Notes * Telephone Encounter - Margie Weldon - 03/04/2018 9:57 AM EST , can you please send prep to pharmacy hi pabon documented in this encounter Plan of Treatment Not on file documented as of this encounter Visit Diagnoses Not on filedocumented in this encounter Care Teams Rubber Trimmer Relationship Specialty Start Date End Date Issac Wilson MD PCP - General Internal Medicine 09/28/13 12/20/18 Frances Gloria MD PCP - General Internal Medicine 12/21/18 12/21/19 Issac Wilson MD PCP - General Internal Medicine 12/22/19 03/12/20 [facility], Pcp PCP - General Internal Medicine 03/13/20 documented as of this encounter
--- OUTSIDE RECORDS SUMMARY | 2024-04-18 09:03 | XMS_ITS | Encounter Summary ---
Author Organization [facility] Address [address] [place] [address] Care Team Providers Care Motor Vehicle Operator Road Supervisor Name Role Phone Frances Gloria MD Primary Care Provider [facility] Issac Short MD Primary Care Provider Jeri Ramírez, Pcp Primary Care Provider [facility] Encounter Details Date Type Department Care Team Description 02/20/2019 Wellness Program Manager Report Medical Records [address] [place] [address] Kushal Ferrer Social History Tobacco Use Types Packs/Day Years [...] on filedocumented in this encounter Care Teams Motor Vehicle Operator Road Supervisor Relationship Specialty Start Date End Date Frances Gloria MD PCP - General Internal Medicine 12/21/18 12/21/19 Issac Wilson MD PCP - General Internal Medicine 12/22/19 03/12/20 Eusebia Ramírez PCP - General Internal Medicine 03/13/20 documented as of this encounter
--- OUTSIDE RECORDS SUMMARY | 2024-04-18 09:03 | XMS_ITS | Encounter Summary ---
Author Organization [facility] Address [address] [place] [address] Care Team Providers Care Derrick Helper Name Role Phone Issac Wilson MD Primary Care Provider Frances Wood MD Primary Care Provider [facility] Issac Wilson MD Primary Care Provider Jeri Ramírez Pcp Primary Care Provider [facility] Encounter Details Date Type Department Care Team Description 09/02/2016 Pt. Non Urgent Medical Question Adult Medicine [address] [address] Jose Maria Carlisle PA-C [address] [place] [address] Social History Tobacco Use Types Packs/Day Years [...] on filedocumented in this encounter Care Teams Derrick Helper Relationship Specialty Start Date End Date Issac Wilson MD PCP - General Internal Medicine 09/28/13 12/20/18 Frances Gloria MD PCP - General Internal Medicine 12/21/18 12/21/19 Issac Wilson MD PCP - General Internal Medicine 12/22/19 03/12/20 [facility] Pcp PCP - General Internal Medicine 03/13/20 documented as of this encounter
--- OUTSIDE RECORDS SUMMARY | 2024-04-18 09:03 | XMS_ITS | Encounter Summary ---
Author Organization [facility] Address [address] [place] [address] Care Team Providers Care Electron Beam Photo Mask Maker Name Role Phone Frances Gloria MD Primary Care Provider Issac Reynolds MD Primary Care Provider Jeri Ramírez, Pcp Primary [facility] Encounter Details Date Type Department Care Team Description 08/31/2019 Pt. Non Urgent Medical Question Adult Medicine [address] [address] [address] [address] Social History Tobacco Use Types Packs/Day Years [...] on filedocumented in this encounter Care Teams Electron Beam Photo Mask Maker Relationship Specialty Start Date End Date Frances Gloria MD PCP - General Internal Medicine 12/21/18 12/21/19 Issac Wilson MD PCP - General Internal Medicine 12/22/19 03/12/20 Darrell, Eusebia PCP - General Internal Medicine 03/13/20 documented as of this encounter
--- OUTSIDE RECORDS SUMMARY | 2024-04-18 09:03 | XMS_ITS | Encounter Summary ---
Author Organization [facility] Address [address] [place] [address] Care Team Providers Care Sales And Marketing Coordinator Name Role Phone Issac Wilson MD Primary Care Provider Frances Wood MD Primary Care Provider [facility] Issac Wilson MD Primary Care Provider Jeri Ramírez, Pcp Primary [facility] Encounter Details Date Type Department Care Team Description 09/23/2016 Refill Adult Medicine [address] [address] Issac Wilson MD Social History Tobacco Use Types Packs/Day [...] encounter Miscellaneous Notes * Telephone Encounter - Aniya Calzada M.A. - 09/23/2016 8:37 AM EDTFrom: Marian Doran To: Issac Wilson MD Sent: 09/23/2016 8:29 AM EDT Subject: Medication Renewal Request Original authorizing provider: MD Marian Graham would like a refill of the following medications: oxybutynin (DITROPAN-XL) 5 MG 24 hr tablet [Issac Wilson MD] Preferred pharmacy: [id number] - [place], [place] - [address] AT Comment: need new prescription documented in this encounter Plan of Treatment Not on file documented as of this encounter Visit Diagnoses Not on filedocumented in this encounter Care Teams Sales And Marketing Coordinator Relationship Specialty Start Date End Date Issac Wilson MD PCP - General Internal Medicine 09/28/13 12/20/18 Frances Gloria MD PCP - General Internal Medicine 12/21/18 12/21/19 Issac Wilson MD PCP - General Internal Medicine 12/22/19 03/12/20 [facility], Pcp PCP - General Internal Medicine 03/13/20 documented as of this encounter
--- OUTSIDE RECORDS SUMMARY | 2024-04-18 09:04 | XMS_ITS | Encounter Summary ---
Author Organization [facility] Address [address] [place] [address] Care Team Providers Care Public Relations Coordinator Name Role Phone Roscoe Strickland MD Primary Care Provider Issac Barragan MD Primary Care Provider Frances Wood MD Primary Care Provider Issac Reynolds MD Primary Care Provider Jeri Ramírez, Pcp Primary [facility] Provider [facility] Reason for Visit * Reason Onset Date Comments VNA Call 01/25/2013 Encounter Details Date Type Department Care Team Description 01/25/2013 Telephone Adult Medicine [address] [address] Roscoe Strickland MD VNA Call Social History Tobacco Use Types Packs/Day Years Used Date Smoking Tobacco: Never Smokeless Tobacco: Never Alcohol Use Standard Drinks/Week Comments No 0 (1 standard drink = 0.6 oz pur e alcohol) Sex Assigned at Date Recorded Not on file Job Start Date Occupation Industry Not on file Not on file Not on file documented as of this encounter Miscellaneous Notes * Telephone Encounter - Thu Borrego M.A. - 01/26/2013 2:02 PM EST [facility] with nu-guaze daily as ordered perDr.Frank LUCIA * Telephone Encounter - Thu Borrego M.A. - 01/26/2013 1:44 PM EST Called [facility] left message for her to call me back for orders . * Telephone Encounter - Brendon Bell MD - 01/26/2013 1:26 PM EST Pack with 1/2 iodoform Nu-Gauze daily * Telephone Encounter - Radha Carbajal - 01/26/2013 10:36 AM EST [phone] Lyndsay calling , states she is still waiting for a call back. * Telephone Encounter - Thu Borrego M.A. - 01/26/2013 9:51 AM EST Please let me know what wound care you want for this patient thanks .routed to Dr.Frank LUCIA * Telephone Encounter - Jazmin Ku R.N. - 01/26/2013 8:45 AM EST Pt is post op and VNA needs dressing orders * Telephone Encounter - Roscoe Strickland MD - 01/25/2013 5:14 PM EST Have them check with Dr Bell * Telephone Encounter - Kim Brown R.N. - 01/25/2013 4:31 PM EST See requests below. Is order fine for the dressing. * Telephone Encounter - Adilia Cotto - 01/25/2013 4:10 PM EST Lyndsay Perdomo calling back from [facility], please call her at [phone], thanks. * Telephone Encounter - Jazmin Ku R.N. - 01/25/2013 1:04 PM EST Need verbal order to use calcium alginate with silver for wound dressing * Telephone Encounter - Mer Cruz - 01/25/2013 12:13 PM EST VNA CALL Which A office is calling? [facility] Full name of caller: Solange Is the caller at the patients home?: YES Reason for call: the nurse wants to know if the packing order for the pt can be changed to calcium algenate with silver? Does caller need an urgent call back? YES Was CONTACT Telephone # obtained above?: YES documented in this encounter Plan of Treatment Not on file documented as of this encounter Visit Diagnoses Not on filedocumented in this encounter Care Teams Public Relations Coordinator Relationship Specialty Start Date End Date Roscoe Strickland MD PCP - General 02/15/07 09/27/13 Issac Wilson MD PCP - General Internal Medicine 09/28/13 12/20/18 Frances Gloria MD PCP - General Internal Medicine 12/21/18 12/21/19 Issac Wilson MD PCP - General Internal Medicine 12/22/19 03/12/20 [facility], Pcp PCP - General Internal Medicine 03/13/20 documented as of this encounter
--- OUTSIDE RECORDS SUMMARY | 2024-04-18 09:04 | XMS_ITS | Encounter Summary ---
Author Organization [facility] Address [address] [place] [address] Care Team Providers Care Supervisory Investigative Specialist Name Role Phone Roscoe Strickland MD Primary Care Provider Issac Barragan MD Primary Care Provider Frances Wood MD Primary Care Provider Issac Reynolds MD Primary Care Provider Jeri Ramírez Pcp Primary Care Provider Unavailjonatan sherman Encounter Details Date Type Department Care Team Description 05/27/2013 [facility] Medical Records [address] [place] [address] Nahun Perdue PA-C Social History Tobacco Use Types Packs/Day Years [...] on filedocumented in this encounter Care Teams Supervisory Investigative Specialist Relationship Specialty Start Date End Date Roscoe [...]
--- OUTSIDE RECORDS SUMMARY | 2024-04-18 09:04 | XMS_ITS | Encounter Summary ---
Author Organization [facility] Address [address] [place] [address] Care Team Providers Care Kick Press Operator Name Role Phone Issac Wilson MD Primary Care Provider Frances Wood MD Primary Care Provider Unavail able Issac Wilson MD Primary Care Provider Jeri Ramírez Pcp Primary Care Provider Unavailjonatan e Encounter Details Date Type Department Care Team Description 01/21/2014 [facility] Medical Records [address] [place] [address] Social History Tobacco Use Types Packs/Day Years [...] on filedocumented in this encounter Care Teams Kick Press Operator Relationship Specialty Start Date End Date Issac Wilson MD PCP - General Internal Medicine 09/28/13 12/20/18 Frances Gloria MD PCP - General Internal Medicine 12/21/18 12/21/19 Issac Wilson MD PCP - General Internal Medicine 12/22/19 03/12/20 Eusebia Ramírez PCP - General Internal Medicine 03/13/20 documented as of this encounter
--- OUTSIDE RECORDS SUMMARY | 2024-04-18 09:04 | XMS_ITS | Encounter Summary ---
Author Organization [facility] Address [address] [place] [address] Care Team Providers Care Poultry Offal Icer Name Role Phone Roscoe Strickland MD Primary Care Provider Issac Barragan MD Primary Care Provider Frances Wood MD Primary Care Provider [facility] Issac Short MD Primary Care Provider Jeri Ramírez Pcp Primary Care Provider [facility] Encounter Details Date Type Department Care Team Description 01/23/2013 [facility] Medical Records [address] [place] [address] Brendon Bell MD [address] [place] [id number] Social History Tobacco Use Types Packs/Day Years [...] on filedocumented in this encounter Care Teams Poultry Offal Icer Relationship Specialty Start Date End Date Roscoe Strickland MD PCP - General 02/15/07 09/27/13 Issac Wilson MD PCP - General Internal Medicine 09/28/13 12/20/18 Frances Gloria MD PCP - General Internal Medicine 12/21/18 12/21/19 Issac Wilson MD PCP - General Internal Medicine 12/22/19 03/12/20 [facility], Pcp PCP - General Internal Medicine 03/13/20 documented as of this encounter
--- OUTSIDE RECORDS SUMMARY | 2024-04-18 09:04 | XMS_ITS | Encounter Summary ---
Author Organization [facility] Address [address] [place] [address] Care Team Providers Care Port Patrol Officer Name Role Phone Issac Wilson MD Primary Care Provider Frances Wood MD Primary Care Provider Unavail able Issac Wilson MD Primary Care Provider Jeri Ramírez Pcp [facility] Encounter Details Date Type Department Care Team Description 05/07/2016 Telephone Radiology - [place] [address] [place] [id number] Issac Wilson MD Social History Tobacco Use [...] on filedocumented in this encounter Care Teams Port Patrol Officer Relationship Specialty Start Date End Date Issac Wilson MD PCP - General Internal Medicine 09/28/13 12/20/18 Frances Gloria MD PCP - General Internal Medicine 12/21/18 12/21/19 Issac Wilson MD PCP - General Internal Medicine 12/22/19 03/12/20 Eusebia Ramírez PCP - General Internal Medicine 03/13/20 documented as of this encounter
--- OUTSIDE RECORDS SUMMARY | 2024-04-18 09:04 | XMS_ITS | Encounter Summary ---
Author Organization [facility] Address [address] [place] [address] Care Team Providers Care Stone Banker Name Role Phone Issac Wilson MD Primary Care Provider Frances Wood MD Primary Care Provider Unavail able Issac Wilson MD Primary Care Provider Jeri Ramírez Pcp Primary Care Provider [facility] Encounter Details Date Type Department Care Team Description 04/16/2016 [facility] Medical Records [address] [place] [address] Santhosh Rios MD Social History Tobacco Use Types Packs/Day [...] on filedocumented in this encounter Care Teams Stone Banker Relationship Specialty Start Date End Date Issac Wilson MD PCP - General Internal Medicine 09/28/13 12/20/18 Frances Gloria MD PCP - General Internal Medicine 12/21/18 12/21/19 Issac Wilson MD PCP - General Internal Medicine 12/22/19 03/12/20 Eusebia Ramírez PCP - General Internal Medicine 03/13/20 documented as of this encounter
--- OUTSIDE RECORDS SUMMARY | 2024-04-18 09:04 | XMS_ITS | Encounter Summary ---
Author Organization [facility] Address [address] [place] [address] Care Team Providers Care Legal Nurse Consultant Name Role Phone Frances Gloria MD Primary Care Provider Issac Reynolds MD Primary Care Provider Jeri Ramírez, Pcp Primary Care Provider [facility] Encounter Details Date Type Department Care Team Description 10/24/2019 Orders Only Radiology - [address] [address] Frances Gloria MD Social History Tobacco Use Types Packs/Day Years Used Date Smoking Tobacco: Never Smokeless Tobacco: Never Alcohol Use Standard Drinks/Week Comments Yes 0 (1 standard drink = 0.6 oz pur e alcohol) occ Sex Assigned at Date Recorded Not on file Job Start Date Occupation Industry Not on file Not on file Not on file COVID-19 Exposure Response Date Recorded In the last month, have you been in contact with someone who was confirmed or suspected to have Coronavirus / COVID-19? No / Unsure 10/24/2019 7:42 AM EDT documented as of this encounter Plan of Treatment Not on file documented as of this encounter Visit Diagnoses Not on filedocumented in this encounter Care Teams Legal Nurse Consultant Relationship Specialty Start Date End Date Frances Gloria MD PCP - General Internal Medicine 12/21/18 12/21/19 Issac Wilson MD PCP - General Internal Medicine 12/22/19 03/12/20 Eusebia Ramírez PCP - General Internal Medicine 03/13/20 documented as of this encounter
--- OUTSIDE RECORDS SUMMARY | 2024-04-18 09:04 | XMS_ITS | Encounter Summary ---
Author Organization [facility] Address [address] [place] [address] Care Team Providers Care Creative Writing Teacher Name Role Phone Roscoe Strickland MD Primary Care Provider Issac Barragan MD Primary Care Provider Frances Wood MD Primary Care Provider [facility] Issac Short MD Primary Care Provider Jeri Ramírez Pcp Primary Care Provider Unavailjonatan e Encounter Details Date Type Department Care Team Description 05/27/2010 [facility] Medical Records [address] [place] [address] Quiana Cosme MD Social History Tobacco Use Types Packs/Day [...] on filedocumented in this encounter Care Teams Creative Writing Teacher Relationship Specialty Start Date End Date Roscoe [...]
--- OUTSIDE RECORDS SUMMARY | 2024-04-18 09:04 | XMS_ITS | Encounter Summary ---
Author Organization [facility] Address [address] [place] [address] Care Team Providers Care Delivery Mgr Name Role Phone Roscoe Strickland MD Primary Care Provider Issac Barragan MD Primary Care Provider Frances Wood MD Primary Care Provider [facility] Issac Short MD Primary Care Provider Jeri Ramírez Pcp Primary Care Provider Unavailjonatan sherman Encounter Details Date Type Department Care Team Description 02/17/2013 Locomotive Engineer Electric Report Medical Records [address] [place] [address] Rc Razo MD Social History Tobacco Use Types Packs/Day [...] on filedocumented in this encounter Care Teams Delivery Mgr Relationship Specialty Start Date End Date Roscoe [...]
--- OUTSIDE RECORDS SUMMARY | 2024-04-18 09:04 | XMS_ITS | Encounter Summary ---
Author Organization [facility] Address [address] [place] [address] Care Team Providers Care Sales Merchandiser Name Role Phone Frances Gloria MD Primary Care Provider Issac Reynolds MD Primary Care Provider Jeri ervin [facility], Pcp Primary Care Provider Unavailabl e Reason for Visit * Reason Onset Date Comments immunizations 10/31/2019 Encounter Details Date Type Department Care Team Description 10/31/2019 Telephone Adult Medicine [address] [address] Frances Gloria MD immunizations Social History Tobacco Use Types Packs/Day Years [...] AM EDT documented as of this encounter Miscellaneous Notes * Telephone Encounter - Jessica Garzano - 10/31/2019 4:38 PM EDT Payor: DRE/PPO POS / Plan: PPO $25 [id number] / Product Type: PPO [id number] Pt wants all imunization record printed and placed in pt brain picker Patient is requesting a list of their previous immunizations YES Does the patient have an immunization form to be completed? NO Is the patient requesting immunizations to be administered? NO If yes, which immunizations are needed? Is the patient traveling to a foreign country: NO If traveling: Which country: Date patient is leaving: documented in this encounter Plan of Treatment Not on file documented as of this encounter Visit Diagnoses Not on filedocumented in this encounter Care Teams Sales Merchandiser Relationship Specialty Start Date End Date Frances Gloria MD PCP - General Internal Medicine 12/21/18 12/21/19 Issac Wilson MD PCP - General Internal Medicine 12/22/19 03/12/20 [facility], Pcp PCP - General Internal Medicine 03/13/20 documented as of this encounter
--- OUTSIDE RECORDS SUMMARY | 2024-04-18 09:04 | XMS_ITS | Encounter Summary ---
Author Organization [facility] Address [address] [place] [address] Care Team Providers Care Ham Passer Name Role Phone Issac Wilson MD Primary Care Provider Frances Wood MD Primary Care Provider Unavail able Issac Wilson MD Primary Care Provider Jeri Ramírez Pcp Primary [facility] Encounter Details Date Type Department Care Team Description 01/30/2014 Fur Sewer Report Medical Records [address] [place] [address] Abstract, Provider Social History Tobacco Use Types Packs/Day Years [...] on filedocumented in this encounter Care Teams Ham Passer Relationship Specialty Start Date End Date Issac Wlison MD PCP - General Internal Medicine 09/28/13 12/20/18 Frances Gloria MD PCP - General Internal Medicine 12/21/18 12/21/19 Issac Wilson MD PCP - General Internal Medicine 12/22/19 03/12/20 Eusebia Ramírez PCP - General Internal Medicine 03/13/20 documented as of this encounter
--- OUTSIDE RECORDS SUMMARY | 2024-04-18 09:04 | XMS_ITS | Encounter Summary ---
Author Organization [facility] Address [address] [place] [address] Care Team Providers Care Machine Shop Helper Name Role Phone Roscoe Strickland MD Primary Care Provider Issac Barragan MD Primary Care Provider Frances Wood MD Primary Care Provider Issac Reynolds MD Primary Care Provider Jeri Ramírez Pcp Primary Care Provider Miryam sherman Encounter Details Date Type Department Care Team Description 05/04/2013 Release of Information Medical Records [address] [place] [address] Abstract, Provider Social History Tobacco Use Types [...] on filedocumented in this encounter Care Teams Machine Shop Helper Relationship Specialty Start Date End Date Roscoe [...]
--- OUTSIDE RECORDS SUMMARY | 2024-04-18 09:04 | XMS_ITS | Encounter Summary ---
Author Organization [facility] Address [address] [place] [address] Care Team Providers Care Controls Project Engineer Name Role Phone Roscoe Strickland MD Primary Care Provider Issac Barragan MD Primary Care Provider Frances Wood MD Primary Care Provider [facility] Issac Short MD Primary Care Provider Jeri Ramírez Pcp Primary Care Provider Miryam sherman Encounter Details Date Type Department Care Team Description 07/26/2012 Transfer Records Medical Records [address] [place] [address] Abstract, Provider Social History Tobacco Use Types [...] on filedocumented in this encounter Care Teams Controls Project Engineer Relationship Specialty Start Date End Date Roscoe [...]
--- OUTSIDE RECORDS SUMMARY | 2024-04-18 09:04 | XMS_ITS | Encounter Summary ---
Author Organization [facility] Address [address] [place] [address] Care Team Providers Care Recessing Machine Operator Name Role Phone Issac Wilson MD Primary Care Provider Frances Wood MD Primary Care Provider Unavail able Issac Wilson MD Primary Care Provider Jeri Ramírez Pcp [facility] Encounter Details Date Type Department Care Team Description 03/30/2014 Offal Roller Report Medical Records [address] [place] [address] Jonny Gomez Social History Tobacco Use Types Packs/Day Years [...] on filedocumented in this encounter Care Teams Recessing Machine Operator Relationship Specialty Start Date End Date Issac Wilson MD PCP - General Internal Medicine 09/28/13 12/20/18 Frances Gloria MD PCP - General Internal Medicine 12/21/18 12/21/19 Issac Wilson MD PCP - General Internal Medicine 12/22/19 03/12/20 Eusebia Ramírez PCP - General Internal Medicine 03/13/20 documented as of this encounter
--- OUTSIDE RECORDS SUMMARY | 2024-04-18 09:04 | XMS_ITS | Encounter Summary ---
Author Organization [facility] Address [address] [place] [address] Care Team Providers Care Technology Project Manager Name Role Phone Issac Wilson MD Primary Care Provider Frances Wood MD Primary Care Provider Unavail able Issac Wilson MD Primary Care Provider Jeri Ramírez Pcp Primary [facility] Encounter Details Date Type Department Care Team Description 04/15/2016 Hospital Medical Records [address] [place] [address] Brendon Redmond MD Social History Tobacco Use Types Packs/Day [...] on filedocumented in this encounter Care Teams Technology Project Manager Relationship Specialty Start Date End Date Issac Wilson MD PCP - General Internal Medicine 09/28/13 12/20/18 Frances Gloria MD PCP - General Internal Medicine 12/21/18 12/21/19 Issac Wilson MD PCP - General Internal Medicine 12/22/19 03/12/20 Eusebia Ramírez PCP - General Internal Medicine 03/13/20 documented as of this encounter
--- OUTSIDE RECORDS SUMMARY | 2024-04-18 09:04 | XMS_ITS | Encounter Summary ---
Author Organization [facility] Address [address] [place] [address] Care Team Providers Care Second Cutter Name Role Phone Issac Wilson MD Primary Care Provider Frances Wood MD Primary Care Provider [facility] Issac Wilson MD Primary Care Provider Jeri Ramírez, Pcp Primary Care Provider Unavailabl e Reason for Visit * Reason Onset Date Comments refill request 07/02/2014 Encounter Details Date Type Department Care Team Description 07/02/2014 Refill Adult Medicine [address] [address] Issac Wilson MD refill request Social History Tobacco Use Types Packs/Day Years [...] Telephone Encounter - Hoa Dooley L.P.N. - 07/03/2014 3:14 PM EDT Faxed to pharmacy * Telephone Encounter - Hoa Dooley L.P.N. - 07/03/2014 3:13 PM EDT Fay called back and said it is now approved and we will be getting paper work mailed to us soonto indicate that * Telephone Encounter - Hoa Dooley L.P.NMary - 07/03/2014 12:03 PM EDT Did speak with Fay from [facility] this am * Telephone Encounter - Noreen Perdue - 07/02/2014 3:05 PM EDT Fay from [employer] calling if to see patient has been on medication for since November 2013 continuously, or was there a break in between because this will determine how much of a dose patient will get please her back [id number] * Telephone Encounter - Issac Wilson - 07/02/2014 12:21 PM EDT This should come from her property clerk * Telephone Encounter - Georgina Neville - 07/02/2014 10:39 AM EDT Patient would like script to be: E-PRESCRIBED/FAXED TO PHARMACY WHEN WAS THE PATIENT'S LAST APPOINTMENT IN ADULT MEDICINE? 03/17/14 WHEN WAS THE LAST TIME THE PATIENT SAW THEIR PCP? Same as above Does patient have an upcoming appointment? Yes 07/20/14 (THE MEDICATION REQUESTED IS ON THE MED LIST ABOVE) All of the medications requested were on the CURRENT MEDS list Did you check the Pharmacy information above?: YES Patient wants: 30 -day supply Is this a mail order prescription request ? NO Patients current insurance carrier is: Payor: AETNA / Plan: POS $20 EL CAROLANNO [id number] / Product Type: POS [id number] documented in this encounter Plan of Treatment Not on file documented as of this encounter Visit Diagnoses Diagnosis Rheumatoid arthritis(714.0)- Primary Rheumatoid arthritis documented in this encounter Care Teams Second Cutter Relationship Specialty Start Date End Date Issac Wilson MD PCP - General Internal Medicine 09/28/13 12/20/18 Frances Gloria MD PCP - General Internal Medicine 12/21/18 12/21/19 Issac Wilson MD PCP - General Internal Medicine 12/22/19 03/12/20 [facility] PCP - General Internal Medicine 03/13/20 documented as of this encounter
== END 2024-04-18 08:35 | disposition home or self-care (01) ==
LOC: HO.PET 08:34
PROVIDERS: PCP Internal Medicine; Visit Provider Surgery
DX: Z13.89 Encounter for screening for other disorder (principal)

== ENCOUNTER 2024-04-18 11:11 | Outpatient (REF) | payer BC, SELFPAY ==
[2024-04-18 11:37] LABS: MANUAL DIFF FLAG NO
[2024-04-18 11:55] LABS: Basophils Percent Auto 0.7 % (0-2); Eosinophils Absolute Auto 0.2 X10*3/uL (0.0-0.4); Eosinophils Percent Auto 2.8 % (0-4); Hematocrit 39.4 % (37.0-47.0); Hemoglobin 13.1 g/dl (12.0-16.0); Imm Gran Abs Auto 0.02 X10*3/uL (0.00-0.03); Imm Gran Pct Auto 0.3 % (0.0-0.4); Lymphocytes Absolute Auto 1.8 X10*3/uL (1.2-4.9); Lymphocytes Percent Auto 31.7 % (20-40); Mean Corpuscular HGB Conc 33.2 g/dl (31.0-35.0); Mean Corpuscular Volume 96.1 fL (80.0-98.0); Mean Platelet Volume 9.6 fL (9.4-12.3); Monocytes Absolute Auto 0.4 X10*3/uL (0.1-1.2); Monocytes Percent Auto 7.4 % (2-11); Neutrophils Absolute Auto 3.3 x10*3/uL (2.0-8.3); Neutrophils Percent Auto 57.1 % (45-73); Platelet Count 331 X10*3/uL (160-400); Red Cell Distribution Width 13.2 % (11.0-16.0); White Blood Count 5.8 X10*3/uL (4.8-10.8)
[2024-04-18 12:23] LABS: Albumin Level 4.2 g/dL (3.5-5.0); Alkaline Phosphatase 70 U/L (39-117); Anion Gap 11 (12-20); Aspartate Amino Transferase 41 U/L (5-31); Bilirubin Total 0.4 mg/dL (0.0-1.0); Blood Urea Nitrogen 11 mg/dL (9-16); C Reactive Protein < 0.10 mg/dL (< or = 0.50); Calcium 9.2 mg/dL (8.4-10.2); Carbon Dioxide 28 mmol/L (22-29); Chloride 109 mmol/L (96-108); Estimated Glomerular Filt Rate > 60; Glucose Random 85 mg/dL (60-115); Potassium 4.6 mmol/L (3.3-5.1); Sodium 143 mmol/L (135-145); Total Protein 7.8 g/dL (6.5-8.0)
[2024-04-18 12:38] LABS: Alanine Aminotransferase 45 U/L (0-31)
[2024-04-18 12:40] LABS: Erythrocyte Sedimentation Rate 10 MM/HR (0-20)
--- OUTSIDE RECORDS SUMMARY | 2024-04-18 14:05 | XMS_ITS | Encounter Summary ---
Author Organization [facility] Address [address] [place] [address] Care Team Providers Care Wire Spinner Name Role Phone Frances Gloria MD Primary Care Provider Issac Reynolds MD Primary Care Provider Jeri ervin [facility], Pcp Primary Care Provider Unavailabl e Reason for Visit * Reason Onset Date Comments refill request 07/25/2019 Encounter Details Date Type Department Care Team Description 07/25/2019 Refill Gastroenterology - [address] [phone] Jeffrey Mazariegos MD refill request Social History Tobacco Use [...] Telephone Encounter - Hue Vera M.A. - 07/25/2019 1:50 PM EDT [place]O- 07-06-2019 * Telephone Encounter - Selma Montano - 07/25/2019 11:50 AM EDT Patient would like script to be: E-PRESCRIBED/FAXED TO PHARMACY WHEN WAS THE PATIENT'S LAST APPOINTMENT IN ADULT MEDICINE? 02/06/2019 WHEN WAS THE LAST TIME THE PATIENT SAW THEIR PCP? 07/06/2019 Does patient have an upcoming appointment? no (THE MEDICATION REQUESTED IS ON THE MED [...] N/A Patients current insurance carrier is: Payor: DRE/MATTHEWO POS / Plan: PPO $25 [id number] / ProductType: PPO [id number] documented in this encounter Plan of Treatment Not on file documented as of this encounter Visit Diagnoses Not on filedocumented in this encounter Care Teams Wire Spinner Relationship Specialty Start Date End Date Frances Gloria MD PCP - General Internal Medicine 12/21/18 12/21/19 Issac Wilson MD PCP - General Internal Medicine 12/22/19 03/12/20 Eusebia Ramírez PCP - General Internal Medicine 03/13/20 documented as of this encounter
--- OUTSIDE RECORDS SUMMARY | 2024-04-18 14:05 | XMS_ITS | Encounter Summary ---
Author Organization [facility] Address [address] [place] [address] Care Team Providers Care Street Light Repairer Name Role Phone Frances Gloria MD Primary Care Provider Issac Reynolds MD Primary Care Provider Jeri Ramírez, Pcp Primary Care Provider [facility] Encounter Details Date Type Department Care Team Description 10/24/2019 Orders Only Radiology - [address] [address] Frances Gloria MD Social History Tobacco Use [...] on filedocumented in this encounter Care Teams Street Light Repairer Relationship Specialty Start Date End Date Frances Gloria MD PCP - General Internal Medicine 12/21/18 12/21/19 Issac Wilson MD PCP - General Internal Medicine 12/22/19 03/12/20 Eusebia Ramírez PCP - General Internal Medicine 03/13/20 documented as of this encounter
--- OUTSIDE RECORDS SUMMARY | 2024-04-18 14:05 | XMS_ITS | Encounter Summary ---
Author Organization [facility] Address [address] [place] [address] Care Team Providers Care Pipe Fitter Welding Name Role Phone Roscoe Strickland MD Primary Care Provider Issac Barragan MD Primary Care Provider Frances Wood MD Primary Care Provider Issac Reynolds MD Primary Care Provider Jeri Ramírez Pcp Primary Care Provider Miryam sherman Encounter Details Date Type Department Care Team Description 05/20/2011 [facility] Medical Records [address] [place] [address] Jose Maria Bonilla MD Social History Tobacco Use Types Packs/Day [...] on filedocumented in this encounter Care Teams Pipe Fitter Welding Relationship Specialty Start Date End Date Roscoe Strickland MD PCP - General 02/15/07 09/27/13 Issac Wilson MD PCP - General Internal Medicine 09/28/13 12/20/18 Frances Gloria MD PCP - General Internal Medicine 12/21/18 12/21/19 Issac Wilson MD PCP - General Internal Medicine 12/22/19 03/12/20 Darrell, Pcp PCP - General Internal Medicine 03/13/20 documented as of this encounter
--- OUTSIDE RECORDS SUMMARY | 2024-04-18 14:05 | XMS_ITS | Encounter Summary ---
Author Organization [facility] [place] Address [address] [place] [address] Care Team Providers Care Gambling Counsellor Name Role Phone Roscoe Strickland MD Primary Care Provider Issac Barragan MD Primary Care Provider Frances Wood MD Primary Care Provider [facility] Issac Short MD Primary Care Provider Jeri Ramírez Pcp Primary Care Provider Unavailjonatan e Encounter Details Date Type Department Care Team Description 05/26/2010 [facility] Medical Records [address] [place] [address] Quiana Cosme MD Social History Tobacco Use [...] on filedocumented in this encounter Care Teams Gambling Counsellor Relationship Specialty Start Date End Date Roscoe [...]
--- OUTSIDE RECORDS SUMMARY | 2024-04-18 14:05 | XMS_ITS | Encounter Summary ---
Author Organization [facility] Address [address] [place] [address] Care Team Providers Care Oceanography Professor Name Role Phone Issac Wilson MD Primary Care Provider Frances Wood MD Primary Care Provider [facility] Issac Wilson MD Primary Care Provider Jeri Ramírez, Pcp Primary Care Provider Unavailabl e Reason for Visit * Reason Comments E-prescribe Rx Request Encounter Details Date Type Department Care Team Description 12/13/2018 Refill Adult Medicine [facility] [address] [place] [address] [facility] [address] [place] [address] [id number] E-prescribe Rx Request Social History Tobacco Use [...] Payor: DRE/RYAN POS / Plan: PPO $30 [employer] [id number] / ProductType: PPO [id number] documented in this encounter Plan of Treatment Not on file documented as of this encounter Visit Diagnoses Diagnosis Globus sensation Gastrointestinal malfunction arising from mental factors Gastroesophageal reflux disease without esophagitis Esophageal reflux Hiatal hernia Diaphragmatic hernia without mention of obstruction or gangrene documented in this encounter Care Teams Oceanography Professor Relationship Specialty Start Date End Date Issac Wilson MD PCP - General Internal Medicine 09/28/13 12/20/18 Frances Gloria MD PCP - General Internal Medicine 12/21/18 12/21/19 Issac Wilson MD PCP - General Internal Medicine 12/22/19 03/12/20 [facility] Internal Medicine 03/13/20 documented as of this encounter
--- OUTSIDE RECORDS SUMMARY | 2024-04-18 14:05 | XMS_ITS | Encounter Summary ---
Author Organization [facility] Address [address] [place] [address] Care Team Providers Care Plug Wirer Name Role Phone Issac Wilson MD Primary Care Provider Frances Wood MD Primary Care Provider Issac Reynolds MD Primary Care Provider Jeri Ramírez, Pcp Primary Care Provider Unavailjonatan e Encounter Details Date Type Department Care Team Description 01/10/2018 Refill Physiatry - [address] [address] Kirill Guardado DO Social History Tobacco Use Types Packs/Day Years [...] encounter Miscellaneous Notes * Telephone Encounter - Gabby Resendez L.P.N. - 2018 11:41 AM EST Script to pharmacy Called patient ,message left on voice mail to call back ,see message below from Dr Guardado * Telephone Encounter - Kirill Guardado - 01/10/2018 5:16 PM EST She will need to follow up within the next [address] Wilson will take over this prescription. * Telephone Encounter - Gabby Resendez L.P.N. - 01/10/2018 8:00 AM EST Last refill 11/19/16 Last visit 04/02/17 Next visit not booked * Telephone Encounter - Gabby Resendez L.P.N. - 01/10/2018 7:59 AM ESTFrom: Marian Doran To: Kirill Guardado DO Sent: 01/10/2018 12:03 AM EST Subject: Medication Renewal Request Original authorizing provider: DO Marian Almeida would like a refill of the following medications: duloxetine (CYMBALTA) 60 MG capsule [Kirill Guardado DO] Preferred pharmacy: [facility] [address] [place] [address] [facility] Comment: documented in this encounter Plan of Treatment Not on file documented as of this encounter Visit Diagnoses Diagnosis Chronic pain syndrome documented in this encounter Care Teams Plug Wirer Relationship Specialty Start Date End Date Issac Wilson MD PCP - General Internal Medicine 09/28/13 12/20/18 Frances Gloria MD PCP - General Internal Medicine 12/21/18 12/21/19 Issac Wilson MD PCP - General Internal Medicine 12/22/19 03/12/20 [facility], Pcp PCP - General Internal Medicine 03/13/20 documented as of this encounter
--- OUTSIDE RECORDS SUMMARY | 2024-04-18 14:05 | XMS_ITS | Encounter Summary ---
Author Organization [facility] Address [address] [place] [address] Care Team Providers Care Erp Specialist Name Role Phone Issac Wilson MD Primary Care Provider Frances Wood MD Primary Care Provider [facility] Issac Wilson MD Primary Care Provider Jeri Ramírez Pcp Primary Care Provider [facility] e Encounter Details Date Type Department Care Team Description 09/01/2016 Pt. Non Urgent Medical Question Adult Medicine [address] [address] Jose Maria Carlisle PA-C [address] [place] [address] Social History Tobacco Use Types Packs/Day Years [...] on filedocumented in this encounter Care Teams Erp Specialist Relationship Specialty Start Date End Date Issac Wilson MD PCP - General Internal Medicine 09/28/13 12/20/18 Frances Gloria MD PCP - General Internal Medicine 12/21/18 12/21/19 Issac Wilson MD PCP - General Internal Medicine 12/22/19 03/12/20 [facility], Pcp PCP - General Internal Medicine 03/13/20 documented as of this encounter
--- OUTSIDE RECORDS SUMMARY | 2024-04-18 14:05 | XMS_ITS | Encounter Summary ---
Author Organization [facility] Address [address] [place] [address] Care Team Providers Care Dump Worker Name Role Phone Issac Wilson MD Primary Care Provider Frances Wood MD Primary Care Provider [facility] Issac Wilson MD Primary Care Provider Jeri Ramírez Pcp Primary Care Provider [facility] Encounter Details Date Type Department Care Team Description 09/02/2016 Pt. Non Urgent Medical Question Adult Medicine [address] [address] Jose Maria Carlisle PA-C [address] [place] [address] Social History Tobacco Use Types Packs/Day Years [...] on filedocumented in this encounter Care Teams Dump Worker Relationship Specialty Start Date End Date Issac Wilson MD PCP - General Internal Medicine 09/28/13 12/20/18 Frances Gloria MD PCP - General Internal Medicine 12/21/18 12/21/19 Issac Wilson MD PCP - General Internal Medicine 12/22/19 03/12/20 [facility], Pcp PCP - General Internal Medicine 03/13/20 documented as of this encounter
--- OUTSIDE RECORDS SUMMARY | 2024-04-18 14:05 | XMS_ITS | Encounter Summary ---
Author Organization [facility] Address [address] [place] [address] Care Team Providers Care Butcher Supervisor Name Role Phone Issac Wilson MD Primary Care Provider Frances Wood MD Primary Care Provider [facility] Issac Wilson MD Primary Care Provider Jeri Ramírez, Pcp Primary Care Provider Unavailabl e Reason for Visit * Reason Onset Date Comments Mychart Rx Refill 08/25/2018 Encounter Details Date Type Department Care Team Description 08/25/2018 Refill Adult Medicine [address] [address] Issac Wilson MD Mychart Rx Refill Social [...] hr tablet [Issac Wilson MD] Preferred pharmacy: [facility] [address] [place] [address] [facility] Comment: no refills remaining documented in this encounter Plan of Treatment Not on file documented as of this encounter Visit Diagnoses Diagnosis Hypothyroidism due to acquired atrophy of thyroid documented in this encounter Care Teams Butcher Supervisor Relationship Specialty Start Date End Date Issac Wilson MD PCP - General Internal Medicine 09/28/13 12/20/18 Frances Gloria MD PCP - General Internal Medicine 12/21/18 12/21/19 Issac Wilson MD PCP - General Internal Medicine 12/22/19 03/12/20 [facility], Pcp PCP - General Internal Medicine 03/13/20 documented as of this encounter
--- OUTSIDE RECORDS SUMMARY | 2024-04-18 14:05 | XMS_ITS | Encounter Summary ---
Author Organization [facility] Address [address] [place] [address] Care Team Providers Care Advanced Manufacturing Technician Name Role Phone Roscoe Strickland MD Primary Care Provider Issac Barragan MD Primary Care Provider Frances Wood MD Primary Care Provider [facility] Issac Short MD Primary Care Provider Jeri Ramírez, Pcp Primary Care Provider Unavailjonatan shermna Encounter Details Date Type Department Care Team Description 02/23/2011 Staff Psychiatrist Report Medical Records [address] [place] [address] Riccardo Hernandez MD, MD Social History Tobacco Use Types Packs/Day Years Used Date Smoking Tobacco: Never Alcohol Use Standard Drinks/Week Comments [...] on filedocumented in this encounter Care Teams Advanced Manufacturing Technician Relationship Specialty Start Date End Date Roscoe Striclkand MD PCP - General 02/15/07 09/27/13 Issac Wilson MD PCP - General Internal Medicine 09/28/13 12/20/18 Frances Gloria MD PCP - General Internal Medicine 12/21/18 12/21/19 Issac Wilson MD PCP - General Internal Medicine 12/22/19 03/12/20 Eusebia Ramírez PCP - General Internal Medicine 03/13/20 documented as of this encounter
--- OUTSIDE RECORDS SUMMARY | 2024-04-18 14:05 | XMS_ITS | Encounter Summary ---
Author Organization [facility] Address [address] [place] [address] Care Team Providers Care Operator Vacuum Name Role Phone Frances Gloria MD Primary Care Provider Issac Reynolds MD Primary Care Provider Jeri Ramírez, Pcp Primary Care Provider Unavailabl e Reason for Visit * Reason Onset Date Comments Faxed Refill 05/29/2019 Encounter Details Date Type Department Care Team Description 05/29/2019 Refill Adult Medicine [address] [address] Frances Gloria MD Faxed Refill Social History Tobacco Use Types Packs/Day [...] encounter Miscellaneous Notes * Telephone Encounter - Danny Ribera M.A. - 05/31/2019 10:51 AM EDT Pt needs audio appt * Telephone Encounter - Frances Gloria MD - 05/29/2019 4:05 PM EDT Unknown to me needs audio * Telephone Encounter - Nallely Farfan - 05/29/2019 3:35 PM EDT Lab Results Component Value Date NA 136 04/18/2019 K 4.4 04/18/2019 CO2 27 04/18/2019 CL 103 04/18/2019 BUN 16 04/18/2019 CREAT 0.79 04/18/2019 GLU 172 04/18/2019 CA 9.8 04/18/2019 GFR > 60 04/18/2019 * Telephone Encounter - Noreen Perdue - 05/29/2019 11:45 AM EDT Patient would like script to be: E-PRESCRIBED/FAXED TO PHARMACY WHEN WAS THE PATIENT'S LAST APPOINTMENT IN ADULT MEDICINE? 01/25/19 WHEN WAS THE LAST TIME THE PATIENT SAW THEIR PCP? Never seen pcp Does patient have an upcoming appointment? No-unable to reach [facility] to call for appointment due to refill request. Appt due (THE MEDICATION REQUESTED IS ON THE MED [...] N/A Patients current insurance carrier is: Payor: DRE/PPO POS / Plan: PPO $25 [place] [id number] / ProductType: PPO [id number] documented in this encounter Plan of Treatment Not on file documented as of this encounter Visit Diagnoses Diagnosis Metatarsalgia of both feet Enthesopathy of ankle and tarsus, unspecified Pes planus of both feet Seropositive rheumatoid arthritis (HCC) Rheumatoid arthritis documented in this encounter Care Teams Operator Vacuum Relationship Specialty Start Date End Date Frances Gloria MD PCP - General Internal Medicine 12/21/18 12/21/19 Jacqueline Wilson-MD Won PCP - General Internal Medicine 12/22/19 03/12/20 [facility] Pcp PCP - General Internal Medicine 03/13/20 documented as of this encounter
--- OUTSIDE RECORDS SUMMARY | 2024-04-18 14:05 | XMS_ITS | Encounter Summary ---
Author Organization [facility] Address [address] [place] [address] Care Team Providers Care Foreign Law Consultant Name Role Phone Issac Wilson MD Primary Care Provider Frances Wood MD Primary Care Provider Unavail able Issac Wilson MD Primary Care Provider Jeri Ramírez, Pcp Primary Care Provider Unavailabl e Encounter Details Date Type Department Care Team Description 09/15/2018 Orders Only Adult Medicine [address] [address] Issac Wilson MD Screening examination for pulmonary [...] tuberculosis documented in this encounter Care Teams Foreign Law Consultant Relationship Specialty Start Date End Date Issac Wilson MD PCP - General Internal Medicine 09/28/13 12/20/18 Frances Gloria MD PCP - General Internal Medicine 12/21/18 12/21/19 Issac Wilson MD PCP - General Internal Medicine 12/22/19 03/12/20 [facility] PCP - General Internal Medicine 03/13/20 documented as of this encounter
--- OUTSIDE RECORDS SUMMARY | 2024-04-18 14:05 | XMS_ITS | Encounter Summary ---
Author Organization [facility] Address [address] [place] [address] Care Team Providers Care Salvage Mend Worker Name Role Phone Frances Gloria MD Primary Care Provider [facility] Issac Wilson MD Primary Care Provider Jeri ervin [facility], Pcp Primary Care Provider [facility] Encounter Details Date Type Department Care Team Description 06/05/2019 Refill Gastroenterology - [address] [place] [phone] Jeffrey Mazariegos MD Social History Tobacco [...] encounter Miscellaneous Notes * Telephone Encounter - Lashay Nam M.A. - 06/05/2019 9:27 AM EDT Last office visit 02/06/2019 documented in this encounter Plan of Treatment Not on file documented as of this encounter Visit Diagnoses Not on filedocumented in this encounter Care Teams Salvage Mend Worker Relationship Specialty Start Date End Date Frances Gloria MD PCP - General Internal Medicine 12/21/18 12/21/19 Issac Wilson MD PCP - General Internal Medicine 12/22/19 03/12/20 [facility], Pcp PCP - General Internal Medicine 03/13/20 documented as of this encounter
--- OUTSIDE RECORDS SUMMARY | 2024-04-18 14:05 | XMS_ITS | Encounter Summary ---
Author Organization [facility] Address [address] [place] [address] Care Team Providers Care Fertilizer Processing Supervisor Name Role Phone Issac Wilson MD Primary Care Provider Frances Wood MD Primary Care Provider [facility] Issac Wilson MD Primary Care Provider Jeri Ramírez Pcp Primary Care Provider [facility] Reason for Visit * Reason Onset Date Comments My Chart Appointment 11/03/2017 dizziness 11/03/2017 Headache 11/03/2017 Encounter Details Date Type Department Care Team Description 11/03/2017 Telephone Adult Medicine [address] [address] Issac Wilson MD My Chart Appointment; dizziness; [...] on filedocumented in this encounter Care Teams Fertilizer Processing Supervisor Relationship Specialty Start Date End Date Issac Wilson MD PCP - General Internal Medicine 09/28/13 12/20/18 Frances Gloria MD PCP - General Internal Medicine 12/21/18 12/21/19 Issac Wilson MD PCP - General Internal Medicine 12/22/19 [facility]12[facility] 03/13/20 documented as of this encounter
--- OUTSIDE RECORDS SUMMARY | 2024-04-18 14:05 | XMS_ITS | Encounter Summary ---
Author Organization [facility] Address [address] [place] [address] Care Team Providers Care Trimmer Operator Three Knife Name Role Phone Frances Gloria MD Primary Care Provider Issac Reynolds MD Primary Care Provider Jeri Ramírez, Pcp Primary Care Provider [facility] Encounter Details Date Type Department Care Team Description 08/31/2019 Pt. Non Urgent Medical Question Adult Medicine [address] [address] [address] [address] Social History Tobacco Use Types Packs/Day Years [...] on filedocumented in this encounter Care Teams Trimmer Operator Three Knife Relationship Specialty Start Date End Date Frances Gloria MD PCP - General Internal Medicine 12/21/18 12/21/19 Issac Wilson MD PCP - General Internal Medicine 12/22/19 03/12/20 Darrell, Eusebia PCP - General Internal Medicine 03/13/20 documented as of this encounter
--- OUTSIDE RECORDS SUMMARY | 2024-04-18 14:05 | XMS_ITS | Encounter Summary ---
Author Organization [facility] Address [address] [place] [address] Care Team Providers Care Fish Bait Picker Name Role Phone Issac Wilson MD Primary Care Provider Frances Wood MD Primary Care Provider [facility] Issac Wilson MD Primary Care Provider Jeri Ramírez, Pcp Primary Care Provider [facility] Encounter Details Date Type Department Care Team Description 09/23/2016 Refill Adult Medicine [address] [address] Issac Wilson MD Social History Tobacco Use [...] hr tablet [Issac Wilson MD] Preferred pharmacy: [id number] - [place], [place] - [address] AT Comment: need new prescription documented in this encounter Plan of Treatment Not on file documented as of this encounter Visit Diagnoses Not on filedocumented in this encounter Care Teams Fish Bait Picker Relationship Specialty Start Date End Date Issac Wilson MD PCP - General Internal Medicine 09/28/13 12/20/18 Frances Gloria MD PCP - General Internal Medicine 12/21/18 12/21/19 Issac Wilson MD PCP - General Internal Medicine 12/22/19 03/12/20 [facility], Pcp PCP - General Internal Medicine 03/13/20 documented as of this encounter
--- OUTSIDE RECORDS SUMMARY | 2024-04-18 14:05 | XMS_ITS | Encounter Summary ---
Author Organization [facility] Address [address] [place] [address] Care Team Providers Care Gre Instructor Name Role Phone Roscoe Strickland MD Primary Care Provider Issac Barragan MD Primary Care Provider Frances Wood MD Primary Care Provider [facility] Issac Short MD Primary Care Provider Jeri Ramírez Pcp Primary Care Provider [facility] Encounter Details Date Type Department Care Team Description 05/28/2013 [facility] Medical Records [address] [place] [address] Brendon Bell MD [address] [place] [address] Social History Tobacco Use Types Packs/Day Years [...] on filedocumented in this encounter Care Teams Gre Instructor Relationship Specialty Start Date End Date Roscoe Strickland MD PCP - General 02/15/07 09/27/13 Issac Wilson MD PCP - General Internal Medicine 09/28/13 12/20/18 Frances Gloria MD PCP - General Internal Medicine 12/21/18 12/21/19 Issac Wilson MD PCP - General Internal Medicine 12/22/19 03/12/20 [facility], Pcp PCP - General Internal Medicine 03/13/20 documented as of this encounter
--- OUTSIDE RECORDS SUMMARY | 2024-04-18 14:05 | XMS_ITS | Encounter Summary ---
Author Organization [facility] Address [address] [place] [address] Care Team Providers Care Manager Wastewater Name Role Phone Issac Wilson MD Primary Care Provider Frances Wood MD Primary Care Provider Unavail able Issac Wilson MD Primary Care Provider Jeri Ramírez Pcp Primary Care Provider [facility] Encounter Details Date Type Department Care Team Description 04/04/2018 [facility] Medical Records [address] [place] [address] Senthil Reyes MD Social History Tobacco Use Types Packs/Day [...] filedocumented in this encounter Care Teams Manager Wastewater Relationship Specialty Start Date End Date Issac Wilson MD PCP - General Internal Medicine 09/28/13 12/20/18 Frances Gloria MD PCP - General Internal Medicine 12/21/18 12/21/19 Issac Wilson MD PCP - General Internal Medicine 12/22/19 03/12/20 Eusebia Ramírez PCP - General Internal Medicine 03/13/20 documented as of this encounter
--- OUTSIDE RECORDS SUMMARY | 2024-04-18 14:05 | XMS_ITS | Encounter Summary ---
Author Organization [facility] Address [address] [place] [address] Care Team Providers Care Dry Yard Worker Name Role Phone Issac Wilson MD Primary Care Provider Frances Wood MD Primary Care Provider Unavail able Issac Wilson MD Primary Care Provider Jeri Ramírez Pcp Primary Care Provider [facility] Encounter Details Date Type Department Care Team Description 03/15/2015 Portfolio Assistant Report Medical Records [address] [place] [address] Justino Tracey Social History Tobacco Use Types [...] on filedocumented in this encounter Care Teams Dry Yard Worker Relationship Specialty Start Date End Date Issac Wilson MD PCP - General Internal Medicine 09/28/13 12/20/18 Frances Gloria MD PCP - General Internal Medicine 12/21/18 12/21/19 Issac Wilson MD PCP - General Internal Medicine 12/22/19 03/12/20 Eusebia Ramírez PCP - General Internal Medicine 03/13/20 documented as of this encounter
--- OUTSIDE RECORDS SUMMARY | 2024-04-18 14:05 | XMS_ITS | Encounter Summary ---
Author Organization [facility] Address [address] [place] [address] Care Team Providers Care Medical Operations Supervisor Name Role Phone Issac Wilson MD Primary Care Provider Frances Wood MD Primary Care Provider [facility] Issac Wilson MD Primary Care Provider Jeri Ramírez, Pcp Primary Care Provider Unavailabl e Reason for Visit * Reason Comments E-prescribe Rx Request Encounter Details Date Type Department Care Team Description 09/29/2016 Refill Adult Medicine [address] [address] Roscoe Strickland MD E-prescribe Rx Request Social History Tobacco Use [...] encounter Miscellaneous Notes * Telephone Encounter - Ale Prater - 09/29/2016 1:58 PM EDT Patient would like script to be: E-PRESCRIBED/FAXED TO PHARMACY WHEN WAS THE PATIENT'S LAST APPOINTMENT IN ADULT MEDICINE? 05/25/16 WHEN WAS THE LAST TIME THE PATIENT SAW THEIR PCP? 03/01/16 Does patient have an upcoming appointment? no (THE MEDICATION REQUESTED IS ON THE MED LIST ABOVE) All of the medications requested were on the CURRENT MEDS list Did you check the Pharmacy information above?: YES Patient wants: 30 -day supply Is this a mail order prescription request ? NO Patients current insurance carrier is: Payor: LIVAN / Plan: PPO $15 [employer] [facility] [place] [id number] / Product Type: PPO [id number] documented in this encounter Plan of Treatment Not on file documented as of this encounter Visit Diagnoses Not on filedocumented in this encounter Care Teams Medical Operations Supervisor Relationship Specialty Start Date End Date Issac Wilson MD PCP - General Internal Medicine 09/28/13 12/20/18 Frances Gloria MD PCP - General Internal Medicine 12/21/18 12/21/19 Issac Wilson MD PCP - General Internal Medicine 12/22/19 03/12/20 Eusebia Ramírez PCP - General Internal Medicine 03/13/20 documented as of this encounter
--- OUTSIDE RECORDS SUMMARY | 2024-04-18 14:05 | XMS_ITS | Encounter Summary ---
Author Organization [facility] Address [address] [place] [address] Care Team Providers Care Meter/Relay Technician Name Role Phone Issac Wilson MD Primary Care Provider Frances Wood MD Primary Care Provider [facility] Issac Wilson MD Primary Care Provider Jeri Ramírez, Pcp Primary Care Provider Unavailabl e Reason for Visit * Reason Onset Date Comments Mychart Rx Refill 09/28/2016 Encounter Details Date Type Department Care Team Description 09/28/2016 Refill Medicine/Pediatrics - [address] [id number] Roscoe Díaz MD Mychart Rx Refill Social History Tobacco [...] Miscellaneous Notes * Telephone Encounter - Hoa Borrego M.A. - 09/28/2016 4:51 PM EDT My chart msg sent * Telephone Encounter - Pepe Mcginnis - 09/28/2016 8:13 AM EDTFrom: Marian Doran To: Roscoe Díaz MD Sent: 09/28/2016 7:31 AM EDT Subject: Medication Renewal Request Original authorizing provider: MD Marian Jha would like a refill of the following medications: citalopram (CELEXA) 20 MG tablet [Roscoe Díaz MD] Preferred pharmacy: [facility] [id number] AT Comment: Need new prescriptions please. Thank you. Medication renewals requested in this message routed to other providers: atorvastatin (LIPITOR) 20 MG tablet [Issac Wilson MD] documented in this encounter Plan of Treatment Not on file documented as of this encounter Visit Diagnoses Not on filedocumented in this encounter Care Teams Meter/Relay Technician Relationship Specialty Start Date End Date Issac Wilson MD PCP - General Internal Medicine 09/28/13 12/20/18 Frances Gloria MD PCP - General Internal Medicine 12/21/18 12/21/19 Issac Wislon MD PCP - General Internal Medicine 12/22/19 03/12/20 [facility] PCP - General Internal Medicine 03/13/20 documented as of this encounter
--- OUTSIDE RECORDS SUMMARY | 2024-04-18 14:05 | XMS_ITS | Encounter Summary ---
Author Organization [facility] Address [address] [place] [address] Care Team Providers Care Agriculture Mechanic Name Role Phone Frances Gloria MD Primary Care Provider Issac Reynolds MD Primary Care Provider Jeri [facility], Pcp Primary Care Provider Unavailabl e Reason for Visit * Reason Comments E-prescribe Rx Request Encounter Details Date Type Department Care Team Description 04/28/2019 Refill Podiatry - [address] [address] Lina Olmos DPM E-prescribe Rx Request Social History Tobacco Use [...] encounter Miscellaneous Notes * Telephone Encounter - Lena Brown DPM - 05/01/2019 10:31 AM EDT approved * Telephone Encounter - Lina Olmos DPM - 04/28/2019 8:[address] Brown's patient * Telephone Encounter - Zoila Kline M.A. - 04/28/2019 8:17 AM EDT Last office visit 05/31/18 Next office visit none scheduled Last refilled on 04/03/19 documented in this encounter Plan of Treatment Not on file documented as of this encounter Visit Diagnoses Diagnosis Metatarsalgia of both feet Enthesopathy of ankle and tarsus, unspecified Pes planus of both feet Seropositive rheumatoid arthritis (HCC) Rheumatoid arthritis documented in this encounter Care Teams Agriculture Mechanic Relationship Specialty Start Date End Date Frances Gloria MD PCP - General Internal Medicine 12/21/18 12/21/19 Issac Wilson MD PCP - General Internal Medicine 12/22/19 03/12/20 [facility], Pcp PCP - General Internal Medicine 03/13/20 documented as of this encounter
--- OUTSIDE RECORDS SUMMARY | 2024-04-18 14:05 | XMS_ITS | Encounter Summary ---
Author Organization [facility] Address [address] [place] [address] Care Team Providers Care Welfare Case Worker Name Role Phone Issac Wilson MD Primary Care Provider Frances Wood MD Primary Care Provider Unavail able Issac Wilson MD Primary Care Provider Jeri Ramírez Pcp Primary Care Provider Unavailabl e Reason for Visit * Reason Onset Date Comments Medication 03/04/2018 Encounter Details Date Type Department Care Team Description 03/04/2018 Telephone Gastroenterology - [address] [place] [phone] Senthil Reyes MD Medication Social History [...] on filedocumented in this encounter Care Teams Welfare Case Worker Relationship Specialty Start Date End Date Issac Wilson MD PCP - General Internal Medicine 09/28/13 12/20/18 Frances Gloria MD PCP - General Internal Medicine 12/21/18 12/21/19 Issac Wilson MD PCP - General Internal Medicine 12/22/19 03/12/20 [facility], Pcp PCP - General Internal Medicine 03/13/20 documented as of this encounter
--- OUTSIDE RECORDS SUMMARY | 2024-04-18 14:05 | XMS_ITS | Encounter Summary ---
Author Organization [facility] Address [address] [place] [address] Care Team Providers Care Global Implementation Manager Name Role Phone Issac Wilson MD Primary Care Provider Frances Wood MD Primary Care Provider Unavail able Issac Wilson MD Primary Care Provider Jeri Ramírez Pcp Primary Care Provider Unavailjonatan e Encounter Details Date Type Department Care Team Description 08/13/2016 Pt. Non Urgent Medical Question Rheumatology - [address] [address] Brendon Gale MD Social History Tobacco Use [...] on filedocumented in this encounter Care Teams Global Implementation Manager Relationship Specialty Start Date End Date Issac Wilson MD PCP - General Internal Medicine 09/28/13 12/20/18 Frances Gloria MD PCP - General Internal Medicine 12/21/18 12/21/19 Issac Wilson MD PCP - General Internal Medicine 12/22/19 03/12/20 Eusebia Ramírez PCP - General Internal Medicine 03/13/20 documented as of this encounter
--- OUTSIDE RECORDS SUMMARY | 2024-04-18 14:05 | XMS_ITS | Encounter Summary ---
Author Organization [facility] Address [address] [place] [address] Care Team Providers Care Airport Ramp Supervisor Name Role Phone Frances Gloria MD Primary Care Provider Issac Reynolds MD Primary Care Provider Jeri Ramírez, Pcp Primary Care Provider [facility] Encounter Details Date Type Department Care Team Description 06/28/2019 Pt. Non Urgent Medical Question Rheumatology - [address] [address] Brendon Gale MD Social History Tobacco Use [...] on filedocumented in this encounter Care Teams Airport Ramp Supervisor Relationship Specialty Start Date End Date Frances Gloria MD PCP - General Internal Medicine 12/21/18 12/21/19 Issac Wilson MD PCP - General Internal Medicine 12/22/19 03/12/20 Eusebia Ramírez PCP - General Internal Medicine 03/13/20 documented as of this encounter
--- OUTSIDE RECORDS SUMMARY | 2024-04-18 14:05 | XMS_ITS | Encounter Summary ---
Author Organization [facility] Address [address] [place] [address] Care Team Providers Care Hydrologist Name Role Phone Issac Wilson MD Primary Care Provider Frances Wood MD Primary Care Provider [facility] Issac Wilson MD Primary Care Provider Jeri Ramírez Pcp Primary Care Provider [facility] Reason for Visit * Reason Onset Date Comments numbness 06/09/2018 Leg Pain 06/09/2018 Encounter Details Date Type Department Care Team Description 06/09/2018 Telephone Adult [address] [address] Issac Wilson MD numbness; Leg Pain Social History Tobacco Use Types Packs/Day Years [...] encounter Miscellaneous Notes * Telephone Encounter - Morelia Valdez R.N - 06/09/2018 1:37 PM EDT Called and spoke with pt. Pt c/o left lower leg radiating to foot numbness pins and needles on and off since Wednesday. No known injury. Worse with sitting. Able to move leg and foot and toes. No discoloration. Feet cold but same temp as other foot. No weakness. Speech clear. Denies redness or swelling. Pt denies chest pain or sob. Appt scheduled for tomorrow at 0900. * Telephone Encounter - Lissa Perdue - 06/09/2018 12:34 PM EDT Symptoms patient is presenting: patient been having numbness in foot for 2 days If pain or injury related was it due to an accident at work or from a motor vehicle accident? NO If yes, gather 3rd alliance party insurance information Date of accident/Injury: How long has patient had these symptoms?: PCP: Issac Wilosn Payor: DRE/PPO POS / Plan: PPO $30 [place] [id number] / Product Type: PPO [id number] documented in this encounter Plan of Treatment Not on file documented as of this encounter Visit Diagnoses Not on filedocumented in this encounter Care Teams Hydrologist Relationship Specialty Start Date End Date Issac Wilson MD PCP - General Internal Medicine 09/28/13 12/20/18 Frances Gloria MD PCP - General Internal Medicine 12/21/18 12/21/19 Issac Wilson MD PCP - General Internal Medicine 12/22/19 03/12/20 [facility] Internal [facility] 03/13/20 documented as of this encounter
--- OUTSIDE RECORDS SUMMARY | 2024-04-18 14:05 | XMS_ITS | Encounter Summary ---
Author Organization [facility] Address [address] [place] [address] Care Team Providers Care Statistical Methods Professor Name Role Phone Issac Wilson MD Primary Care Provider Frances Wood MD Primary Care Provider [facility] Issac Wilson MD Primary Care Provider Jeri Ramírez, Pcp Primary Care Provider Unavailjonatan e Encounter Details Date Type Department Care Team Description 07/22/2015 Refill Adult Medicine [address] [address] Issac Wilson MD Social History Tobacco Use [...] Telephone Encounter - Hoa Borrego M.A. - 07/22/2015 8:57 AM EDT Component Value Date TSH 2.75 07/20/2014 * Telephone Encounter - Hoa Borrego M.A. - 07/22/2015 8:56 AM EDTFrom: Marian Doran To: Issac Wilson MD Sent: 07/22/2015 7:47 AM EDT Subject: Medication Renewal Request Original authorizing provider: Issac Wilson MD Marian Doran would like a refill of the following medications: levothyroxine (SYNTHROID, LEVOTHROID) 75 MCG tablet [Issac Wilson MD] Preferred pharmacy: [id number] [place] [address] [employer] [facility] Comment: No refills left. Please send new script for these meds. Thank you. Medication renewals requested in this message routed to other providers: methotrexate 2.5 MG tablet [Brendon Gale MD] documented in this encounter Plan of Treatment Not on file documented as of this encounter Visit Diagnoses Not on filedocumented in this encounter Care Teams Statistical Methods Professor Relationship Specialty Start Date End Date Issac Wilson MD PCP - General Internal Medicine 09/28/13 12/20/18 Frances Gloria MD PCP - General Internal Medicine 12/21/18 12/21/19 Issac Wilson MD PCP - General Internal Medicine 12/22/19 03/12/20 [facility] Pcp PCP - General Internal Medicine 03/13/20 documented as of this encounter
--- OUTSIDE RECORDS SUMMARY | 2024-04-18 14:05 | XMS_ITS | Clinical Summary ---
Author Organization [facility] Address [address] [place] [address] Care Team Providers Care Application Architect Manager Name Role Phone Unavailable Primary Care Provider Unavailabl e Surgical History Surgery Date Site/Laterality Comments TUBAL LIGATION PROCEDURE: HISTORICAL TUBAL LIGATION HERNIA REPAIR Bilateral PROCEDURE: HISTORICAL HERNIA REPAIR/ING; COMMENT: around age 8 y/o BLADDER SUSPENSION 2010 PROCEDURE: HISTORICAL BLADDER SUSPENSION; COMMENT: Dr. 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 Off/on meds late [id number]. Enbrel stopped because of recurrent infections. Leflunomide [...] RESULTING AGENCY - 07/06/2018 4:50 PM EDT [id number] THINPREP PAP, IMAGED: NEGATIVE FOR SQUAMOUS INTRAEPITHELIAL [...]
--- OUTSIDE RECORDS SUMMARY | 2024-04-18 14:05 | XMS_ITS | Encounter Summary ---
Author Organization [facility] Address [address] [place] [address] Care Team Providers Care Wealth Management Manager Name Role Phone Issac Wilson MD Primary Care Provider Frances Wood MD Primary Care Provider [facility] Issac Wilson MD Primary Care Provider Jeri Ramírez, Pcp Primary Care Provider Unavailjonatan e Encounter Details Date Type Department Care Team Description 08/20/2015 Refill Adult Medicine [address] [address] Issac Wilson MD Social History Tobacco Use [...] Telephone Encounter - Hoa Borrego M.A. - 08/20/2015 8:30 AM EDT Component Value Date TSH 2.75 07/20/2014 * Telephone Encounter - Hoa Borrego M.A. - 08/20/2015 8:27 AM EDTFrom: Marian Doran To: Issac Wilson MD Sent: 08/20/2015 7:31 AM EDT Subject: Medication Renewal Request Original authorizing provider: Issac Wilson MD Marian Doran would like a refill of the following medications: levothyroxine (SYNTHROID, LEVOTHROID) 75 MCG tablet [Issac Wilson MD] Preferred pharmacy: [facility] [id number] [place] [address] [email or web address] [facility] Comment: Please send new scripts to pharmacy. No refills remaining. Thank you. Medication renewals requested in this message routed to other providers: folic acid (FOLVITE) 1 MG tablet [Brendon Gale MD] documented in this encounter Plan of Treatment Not on file documented as of this encounter Visit Diagnoses Not on filedocumented in this encounter Care Teams Wealth Management Manager Relationship Specialty Start Date End Date Issac Wilson MD PCP - General Internal Medicine 09/28/13 12/20/18 Frances Gloria MD PCP - General Internal Medicine 12/21/18 12/21/19 Issac Wilson MD PCP - General Internal Medicine 12/22/19 03/12/20 [facility] Pcp PCP - General Internal Medicine 03/13/20 documented as of this encounter
--- OUTSIDE RECORDS SUMMARY | 2024-04-18 14:06 | XMS_ITS | Encounter Summary ---
Author Organization [facility] Address [address] [place] [address] Care Team Providers Care Ice Guard Skating Rink Name Role Phone Issac Wilson MD Primary Care Provider Frances Wood MD Primary Care Provider Unavail able Issac Wilson MD Primary Care Provider Jeri Ramírez Pcp Primary Care Provider [facility] Encounter Details Date Type Department Care Team Description 04/15/2016 Hospital Medical Records [address] [place] [id number] Brendon Redmond MD Social History Tobacco Use [...] on filedocumented in this encounter Care Teams Ice Guard Skating Rink Relationship Specialty Start Date End Date Issac Wilson MD PCP - General Internal Medicine 09/28/13 12/20/18 Frances Gloria MD PCP - General Internal Medicine 12/21/18 12/21/19 Issac Wilson MD PCP - General Internal Medicine 12/22/19 03/12/20 Eusebia Ramírez PCP - General Internal Medicine 03/13/20 documented as of this encounter
--- OUTSIDE RECORDS SUMMARY | 2024-04-18 14:06 | XMS_ITS | Encounter Summary ---
Author Organization [facility] Address [address] [place] [address] Care Team Providers Care Mixer Driver Name Role Phone Roscoe Strickland MD Primary Care Provider Issac Barragan MD Primary Care Provider Frances Wood MD Primary Care Provider Issac Reynolds MD Primary Care Provider Jeri Ramírez Pcp Primary Care Provider Miryam sherman Encounter Details Date Type Department Care Team Description 05/04/2013 Release of Information Medical Records [address] [place] [id number] Abstract, Provider Social History Tobacco Use Types [...] on filedocumented in this encounter Care Teams Mixer Driver Relationship Specialty Start Date End Date Roscoe [...]
--- OUTSIDE RECORDS SUMMARY | 2024-04-18 14:06 | XMS_ITS | Encounter Summary ---
Author Organization [facility] Address [address] [place] [address] Care Team Providers Care Siding Applicator Name Role Phone Roscoe Strickland MD Primary Care Provider Issac Barragan MD Primary Care Provider Frances Wood MD Primary Care Provider Issac Reynolds MD Primary Care Provider Jeri Ramírez Pcp Primary Care Provider Unavailjonatan sherman Encounter Details Date Type Department Care Team Description 05/26/2013 [facility] Medical Records [address] [place] [id number] Carlos Alberto Knox MD Social History Tobacco Use Types Packs/Day [...] on filedocumented in this encounter Care Teams Siding Applicator Relationship Specialty Start Date End Date Roscoe [...]
--- OUTSIDE RECORDS SUMMARY | 2024-04-18 14:06 | XMS_ITS | Encounter Summary ---
Author Organization [facility] Address [address] [place] [address] Care Team Providers Care Ux Ui Designer Name Role Phone Issac Wilson MD Primary Care Provider Frances Wood MD Primary Care Provider Unavail able Issac Wilson MD Primary Care Provider Jeri Ramírez Pcp Primary [facility] Encounter Details Date Type Department Care Team Description 01/30/2014 Resource Room Teacher Report Medical Records [address] [place] [id number] Abstract, Provider Social History Tobacco Use Types [...] on filedocumented in this encounter Care Teams Ux Ui Designer Relationship Specialty Start Date End Date Issac Wilson MD PCP - General Internal Medicine 09/28/13 12/20/18 Frances Gloria MD PCP - General Internal Medicine 12/21/18 12/21/19 Issac Wilson MD PCP - General Internal Medicine 12/22/19 03/12/20 Eusebia Ramírez PCP - General Internal Medicine 03/13/20 documented as of this encounter
--- OUTSIDE RECORDS SUMMARY | 2024-04-18 14:06 | XMS_ITS | Encounter Summary ---
Author Organization [facility] Address [address] [place] [address] Care Team Providers Care Benchroom Shop Optician Name Role Phone Roscoe Strickland MD Primary Care Provider Issac Barragan MD Primary Care Provider Frances Wood MD Primary Care Provider Issac Reynolds MD Primary Care Provider Jeri Ramírez, Pcp Primary Care Provider Miryam sherman Encounter Details Date Type Department Care Team Description 02/21/2012 Pt. Non Urgent Medical Question Adult Medicine [address] [address] Ezequiel West FNP [address] [place] [id number] Social History Tobacco Use Types Packs/Day Years Used Date Smoking Tobacco: Never Smokeless Tobacco: Never Alcohol Use Standard Drinks/Week Comments No 0 (1 standard drink = 0.6 oz pur e alcohol) Sex Assigned at Date Recorded Not on file Job Start Date Occupation Industry Not on file Not on file Not on file documented as of this encounter Progress Notes * Deysi Vera M.A. - 02/22/2012 8:09 AM ESTFrom: DEYSI DAMIAN To: NATHALY Baldwin Sent: Janny Feb 21, 2012 3:03 PM Subject: titer results Ezequiel, All my titer results came back positive except for Hep B. I will need to make an appointment to start my Hep B series. Can we make one as soon as possible? Also, I will need 2 copies of the blood test results. Thank you for your time. Deysi Damian documented in this encounter Plan of Treatment Not on file documented as of this encounter Visit Diagnoses Not on filedocumented in this encounter Care Teams Benchroom Shop Optician Relationship Specialty Start Date End Date Roscoe Strickland MD PCP - General 02/15/07 09/27/13 Issac Wilson MD PCP - General Internal Medicine 09/28/13 12/20/18 Frances Gloria MD PCP - General Internal Medicine 12/21/18 12/21/19 Issac Wilson MD PCP - General Internal Medicine 12/22/19 03/12/20 [facility], Pcp PCP - General Internal Medicine 03/13/20 documented as of this encounter
--- OUTSIDE RECORDS SUMMARY | 2024-04-18 14:06 | XMS_ITS | Encounter Summary ---
Author Organization [facility] Address [address] [place] [address] Care Team Providers Care Corrections Unit Supervisor Name Role Phone Roscoe Strickland MD Primary Care Provider Issac Barragan MD Primary Care Provider Frances Wood MD Primary Care Provider [facility] Issac Short MD Primary Care Provider Jeri Ramírez Pcp Primary Care Provider Unavailjonatan sherman Encounter Details Date Type Department Care Team Description 10/12/2012 Ore Feeder Report Medical Records [address] [place] [id number] Rc Razo MD Social History Tobacco Use [...] on filedocumented in this encounter Care Teams Corrections Unit Supervisor Relationship Specialty Start Date End Date Roscoe [...]
--- OUTSIDE RECORDS SUMMARY | 2024-04-18 14:06 | XMS_ITS | Encounter Summary ---
Author Organization [facility] Address [address] [place] [address] Care Team Providers Care Director Health Name Role Phone Roscoe Strickland MD Primary Care Provider Issac Barragan MD Primary Care Provider Frances Wood MD Primary Care Provider [facility] Issac Short MD Primary Care Provider Jeri Ramírez Pcp Primary Care Provider Unavailjonatan sherman Encounter Details Date Type Department Care Team Description 02/17/2012 Verification Specialist Report Medical Records [address] [place] [address] Rc Razo MD Social History Tobacco Use [...] filedocumented in this encounter Care Teams Director Health Relationship Specialty Start Date End Date Roscoe [...]
--- OUTSIDE RECORDS SUMMARY | 2024-04-18 14:06 | XMS_ITS | Encounter Summary ---
Author Organization [facility] Address [address] [place] [address] Care Team Providers Care Vinyl Dipper Name Role Phone Roscoe Strickland MD Primary Care Provider Issac Barragan MD Primary Care Provider Frances Wood MD Primary Care Provider [facility] Issac Short MD Primary Care Provider Jeri Ramírez Pcp Primary Care Provider Miryam sherman Encounter Details Date Type Department Care Team Description 07/26/2012 Transfer Records Medical Records [address] [place] [id number] Abstract, Provider Social History Tobacco Use Types [...] on filedocumented in this encounter Care Teams Vinyl Dipper Relationship Specialty Start Date End Date Roscoe [...]
--- OUTSIDE RECORDS SUMMARY | 2024-04-18 14:06 | XMS_ITS | Encounter Summary ---
Author Organization [facility] Address [address] [place] [address] Care Team Providers Care Hair Sample Matcher Name Role Phone Roscoe Strickland MD Primary Care Provider Issac Barragan MD Primary Care Provider Frances Wood MD Primary Care Provider Issac Reynolds MD Primary Care Provider Jeri Ramírez Pcp Primary Care Provider Miryam sherman Encounter Details Date Type Department Care Team Description 09/01/2012 Release of Information Medical Records [address] [place] [id number] Abstract, Provider Social History Tobacco Use Types [...] on filedocumented in this encounter Care Teams Hair Sample Matcher Relationship Specialty Start Date End Date Roscoe [...]
--- OUTSIDE RECORDS SUMMARY | 2024-04-18 14:06 | XMS_ITS | Encounter Summary ---
Author Organization [facility] Address [address] [place] [address] Care Team Providers Care Assistant County Attorney Name Role Phone Issac Wilson MD Primary Care Provider Frances Wood MD Primary Care Provider Unavail able Issac Wilson MD Primary Care Provider Jeri Ramírez Pcp [facility] Encounter Details Date Type Department Care Team Description 04/16/2016 Hospital Medical Records [address] [place] [id number] Santhosh Rios MD Social History Tobacco Use [...] on filedocumented in this encounter Care Teams Assistant County Attorney Relationship Specialty Start Date End Date Issac Wilson MD PCP - General Internal Medicine 09/28/13 12/20/18 Frances Gloria MD PCP - General Internal Medicine 12/21/18 12/21/19 Issac Wilson MD PCP - General Internal Medicine 12/22/19 03/12/20 Eusebia Ramírez PCP - General Internal Medicine 03/13/20 documented as of this encounter
--- OUTSIDE RECORDS SUMMARY | 2024-04-18 14:06 | XMS_ITS | Encounter Summary ---
Author Organization [facility] Address [address] [place] [address] Care Team Providers Care Broadband Engineer Name Role Phone Issca Wilson MD Primary Care Provider Frances Wood MD Primary Care Provider Unavail able Issac Wilson MD Primary Care Provider Jeri Ramírez Pcp Primary [facility] Encounter Details Date Type Department Care Team Description 01/20/2014 Hospital Medical Records [address] [place] [id number] Jose Maria Tran Social History Tobacco Use Types Packs/Day Years [...] on filedocumented in this encounter Care Teams Broadband Engineer Relationship Specialty Start Date End Date Issac Wilson MD PCP - General Internal Medicine 09/28/13 12/20/18 Frances Gloria MD PCP - General Internal Medicine 12/21/18 12/21/19 Issac Wilson MD PCP - General Internal Medicine 12/22/19 03/12/20 Eusebia Ramírez PCP - General Internal Medicine 03/13/20 documented as of this encounter
== END 2024-04-18 11:12 | disposition home or self-care (01) ==
LOC: HO.LAB 11:11
PROVIDERS: PCP Internal Medicine; Visit Provider Student in an Organized Health Care Education/Training Program
DX: M85.80 Other specified disorders of bone density and structure, unspecified site (principal); M06.09 Rheumatoid arthritis without rheumatoid factor, multiple sites
CPT/HCPCS: 36415; 80053; 85025; 85652; 86140

== ENCOUNTER 2024-04-21 12:15 | Outpatient (AMB) | payer BC, SELFPAY ==
--- NOTE | 2024-04-21 12:26 | MHC.OFFVIS ---
Vital Signs 04/21/24 12:30 Height 5 ft 5.5 in Weight 202 lb 2.622 oz BMI 33.1 BP 120/80 Blood Pressure Location Lt brachial Position Sitting Pulse 66 Pulse Source Pulse Oximeter Pulse Oximetry (%) 97 Oxygen Delivery Method Room Air Intake Visit Reasons: Follow up Intake Note: Patient presents for follow up. Allergies etanercept [From ENBREL] Allergy (Intermediate, Verified 04/21/24 12:29) RASH tofacitinib [From Xeljanz] Adverse Reaction (Intermediate, Verified 04/21/24 12:29) high LFT Medication List - Last Reconciled 04/21/24 by Michelle Owen MD albuterol sulfate 2.5 mg (3 mL) inhalation Q4H PRN 30 days ascorbic acid (vitamin C) ER (Vitamin C ER) 1,000 mg PO cholecalciferol (vitamin D3) 50 mcg PO DAILY citalopram 20 mg PO DAILY 90 days cranberry extract 1 PO estradiol 0.01%(0.1mg/gram) pea-sized to urethra 2 times a week; 30 days inhalational spacing device (Aerovent Plus spacer) As directed levothyroxine 50 mcg PO DAILY nebulizers (AeroEclipse II Nebulizer) As directed pantoprazole 40 mg PO DAILY Rinvoq ER (upadacitinib) 15 mg PO DAILY 90 days NS rosuvastatin 5 mg PO DAILY tirzepatide (weight loss) (Zepbound) 2.5 mg subcut QWEEK HPI Comments Details: Patient is a 68-year-old female with hypothyroidism, hyperlipidemia and seropositive nonerosive rheumatoid arthritis. Here today for follow-up. Interval History: Patient last seen 12/03/2023 with me. At that time she was remission on Rinvoq with no new complaints. Since that visit she had repeat CT scan which showed significant enlargement to a known left lower lobe lung mass. Subsequent PET scan shows that the 8 mm nodule in the left lower lobe was not metabolically active. Rheumatologic History: Onset ~ 2003, RF positive. Treated with methotrexate and Remicade (failing response), changed to Humira ~2005 and combination helpful. 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 Off/on meds late 8026-3847. Enbrel stopped because of recurrent infections. Leflunomide caused skin rash, summer 2013. Orencia started 2013; methotrexate added 12/29 but stopped due to LFT elevations Xeljanz in place of Orencia Feb 2015 - helpful but further LFT elevations 02/03. Rinvoq in place of Xeljanz 01/2020 Decreased Rinvoq to 5 days a week in the setting of elevated liver enzymes Current Rheumatology Medication(s): Rinvoq 15mg 5 days a week PFSH Medical History UTI (urinary tract infection) Osteopenia Pneumonia Elevated transaminase level Long-term use of immunosuppressant medication COVID-19 vaccine administered Hidradenitis suppurativa of left axilla Urge incontinence Hypercholesterolemia MRSA infection GERD (gastroesophageal reflux disease) Rheumatoid arthritis Hypothyroid Surgical History TMJ (sprain of temporomandibular joint) History of esophagogastroduodenoscopy (EGD) Hx of colonoscopy History of eye surgery Ulnar neuropathy at elbow of left upper extremity Plantar fasciitis, bilateral H/O tubal ligation Hx of tonsillectomy Inguinal hernia Family History Mother Myocardial infarct Father Lung cancer Paternal Uncle Bladder cancer Paternal Aunt Stomach cancer Maternal Uncle Myocardial infarct Social History Housing: House Are you a primary career services assistant to a significant other at home: No Do you presently have visiting nurse or other home services: No Alcohol intake: current Alcohol intake frequency: a few times a month Alcohol type: wine and hard liquor Comment: 3-4 x a month glass of wine Patient Tobacco Use Status: Never used Tobacco e-Cigarette/Vaping Use: Never Used Second Hand Smoke Exposure: No Advance Directives Date on File: 09/17/20 service: No Current occupational status: employed 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 Cognitive needs: No Hearing needs: No Vision needs: Yes Review of Systems Const Details: Review of Systems Constitutional: Denies fever, chills, weight loss ENT: Denies vision changes, eye pain or eye redness, dental caries, dry mouth GI: Denies nausea, vomiting, diarrhea, abdominal pain, change in BM Pulm: Denies SOB, VERAS, hemoptysis, wheezing Cards: Denies chest pain, palpitations Skin: Denies Raynaud's, rash, nail changes, photosensitivity, HONEYCOMB DECAPPER: Denies headaches, weakness, paresthesias, recurrent falls MSK: as per HPI All other systems reviewed and are unremarkable except noted above Physical Exam Vital Signs: Last Vital Signs Pulse 66 04/21/24 12:30 BP 120/80 04/21/24 12:30 Pulse Ox 97 04/21/24 12:30 Oxygen Delivery Method Room Air 04/21/24 12:30 BMI result Body Mass Index 33.1 Vital signs reviewed Physical Examination CONSTITUITIONAL Patient alert and cooperative. Well appearing and in no apparent painful distress HEENT Conjunctiva and sclera clear. ?Pupils equal round and reactive to light. ?No lymphadenopathy. ? CHEST/RESPIRATORY SYSTEM Normal respiratory effort and able to speak in complete sentences. ?Clear to auscultation bilaterally. ?No crackles, rales, rhonchi, wheezes heard. CARDIAC SYSTEM Regular rate and rhythm. ?S1 and S2 heard no murmurs. ?Radial pulses intact bilaterally MSK Hands: ?Good commuter train operator strength bilaterally. No deformities noted. ?No synovitis noted to the MCPs, PIPs or DIPs. ?No tenderness to palpation of these joints. Heberden's nodes noted Wrists: ?Full range of motion at the wrists without pain. ?No tenderness to palpation or synovitis noted to the wrists. Elbows: Full range of motion without pain. No tenderness, weakness, swelling, increased warmth or erythema. Shoulders: Full range of motion without pain. No tenderness, weakness, swelling, increased warmth or erythema. Hips: Full range of motion without pain. Hip bursa: No tenderness to palpation Knees: ?Full range of motion. ?No tenderness, swelling, increased warmth or erythema.?No effusion or crepitations Ankles: Full range of motion. ?No tenderness, swelling, increased warmth or erythema.? Feet: ?Negative squeeze test. ?No tenderness to palpation or swelling of the MTPs. Tender points:?No tenderness to palpation of the bilateral trapezius, supraspinatus, greater trochanters, anterior costochondral junctions, bilateral gluteal areas, bilateral suboccipital muscle insertions SKIN Skin intact without rashes. Results Reviewed Results Reviewed: Laboratory Tests 12/03/23 04/18/24 13:50 11:36 WBC 5.8 RBC 4.10 L Hgb 13.1 Hct 39.4 Plt Count 331 ESR 10 Sodium 143 Potassium 4.6 Chloride 109 H Carbon Dioxide 28 BUN 11 Creatinine 0.72 AST 35 H 41 H ALT 46 H 45 H Alkaline Phosphatase 70 C-Reactive Protein < 0.10 Total Protein 7.8 Albumin 4.2 Assessment & Plan Assessment & Plan (1) Rheumatoid arthritis: Comment: Onset ~ 2003, RF positive. Treated with methotrexate and Remicade (failing response), changed to Humira ~2005 and combination helpful. 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 Off/on meds late [id number]. Enbrel stopped because of recurrent infections. Leflunomide caused skin rash, summer 2013. Orencia started 2013; methotrexate added 12/29 but stopped due to LFT elevations Xeljanz in place of Orencia Feb 2015 - helpful but further LFT elevations 02/03. Rinvoq in place of Xeljanz 01/2020 - doses at 15 mg 5 days a week Code(s): M06.9 - Rheumatoid arthritis, unspecified Category: Medical Qualifiers: Rheumatoid arthritis location: multiple sites Rheumatoid factor presence: without rheumatoid factor Qualified Code(s): M06.09 - Rheumatoid arthritis without rheumatoid factor, multiple sites Plan: #Seropositive RA Patient with stable seropositive rheumatoid arthritis. Currently in remission on Rinvoq 5 days a week. Her transaminases have been consistently elevated but this has been attributed to nonalcoholic fatty liver disease. Plan - Continue Rinvoq 15mg daily - RTC 6 months - Labs before visit: CBC, CMP, ESR, CRP, hepatitis panel, T spot (2) Long-term use of immunosuppressant medication: Code(s): Z79.899 - Other long term acute care registered nurse (current) drug therapy Category: Medical Plan: #Long-term Use of DAVID inhibitor (Rinvoq) Discussed with patient the benefits and risks of DAVID inhibitors for the management of the rheumatic condition Benefits include reduce pain, maintenance of remission and reduction of flares Risks include thromboembolic events, skin cancer and nonmelanoma skin cancers, other forms of cancer, cardiovascular alcohol and mortality Advise patient that they are to hold the medication and for up to 1 week after a febrile illness or an open skin wound (3) Elevated transaminase level: Comment: likely due to fatty liver; 2021 CT scan of the abdomen showed fatty liver. No focal lesions. Code(s): R74.01 - Elevation of levels of liver transaminase levels Category: Medical Plan: #Elevated AST/ALT Labs stable. (4) Osteopenia: Comment: DEXA 05/03/20. Spine -1.3, Left femur neck -0.5, left femur total -0.2 DEXA 04/14/24. AP Spine -1.9, Left femur neck -0.8, left femur total -0.3 Code(s): M85.80 - Other specified disorders of bone density and structure, unspecified site Category: Medical Qualifiers: Osteopenia location: spine Qualified Code(s): M85.88 - Other specified disorders of bone density and structure, other site Plan: #Spine Osteopenia Discussed lifestyle changes including weight-bearing exercises to help with improvement in her spinal bone density. (5) Rib pain on left side: Code(s): R07.81 - Pleurodynia Plan: #Left sided posterior rib pain Patient today complained of left-sided posterior rib pain around the midthoracic region. This has been ongoing for about 14 years. Workup and evaluations have not revealed anything sinister. She has tried topical diclofenac as well as NSAIDs with transient relief. At this time not sure what could be the cause of the pain. This is unlikely to be related to rheumatoid arthritis as rheumatoid arthritis is a disease of the synovium and there are no synovial joints within the bones of ribs. It is possible that she may have some muscle spasm or some neuropathy and may benefit from gabapentin. I shared this with the patient and this is could be something that she could try in the future Plan I spent 35 minutes reviewing the record and labs, seeing the patient, discussing the treatment plan and documenting in the medical record ? Orders: Orders Complete Blood Count Auto Diff 6 Months M06.09 - Rheumatoid arthritis without rheumatoid factor, multiple sites Comprehensive Met. Panel 6 Months M06.09 - Rheumatoid arthritis without rheumatoid factor, multiple sites C Reactive Protein 6 Months M06.09 - Rheumatoid arthritis without rheumatoid factor, multiple sites T Spot TB 6 Months M06.09 - Rheumatoid arthritis without rheumatoid factor, multiple sites Vitamin D 25-OH (D2 and D3) 6 Months E55.9 - Vitamin D deficiency, unspecified Erythrocyte Sedimentation Rate 6 Months M06.09 - Rheumatoid arthritis without rheumatoid factor, multiple sites Hepatitis A,B,C Profile 6 Months M06.09 - Rheumatoid arthritis without rheumatoid factor, multiple sites Coding Level of Care Code Est Pt Level 4 (63607) Complex EM visit Add On G2211 Diagnoses Rheumatoid arthritis of multiple sites with negative rheumatoid factor M06.09 Rheumatoid arthritis location: multiple sites Rheumatoid factor presence: without rheumatoid factor Long-term use of immunosuppressant medication Z79.899 Elevated transaminase level R74.01 Osteopenia of spine M85.88 Osteopenia location: spine Rib pain on left side R07.81
[2024-04-21 12:30] VITALS: BP 120/80; PULSE 66; O2SAT 97; BMI 33.1
--- OUTSIDE RECORDS SUMMARY | 2024-04-21 13:58 | XMS_ITS | Encounter Summary ---
Author Organization [facility] Address [address] [place] [address] Care Team Providers Care Gauger Chief Name Role Phone Issac Wilson MD Primary Care Provider Frances Wood MD Primary Care Provider Unavail able Issac Wilson MD Primary Care Provider Jeri Ramírez Pcp Primary Care Provider [facility] Encounter Details Date Type Department Care Team Description 04/16/2016 Hospital Medical Records [address] [place] [id number] Santhosh Rios MD Social History Tobacco Use [...] on filedocumented in this encounter Care Teams Gauger Chief Relationship Specialty Start Date End Date Issac Wilson MD PCP - General Internal Medicine 09/28/13 12/20/18 Frances Gloria MD PCP - General Internal Medicine 12/21/18 12/21/19 Issac Wilson MD PCP - General Internal Medicine 12/22/19 03/12/20 Eusebia Ramírez PCP - General Internal Medicine 03/13/20 documented as of this encounter
--- OUTSIDE RECORDS SUMMARY | 2024-04-21 13:58 | XMS_ITS | Encounter Summary ---
Author Organization [facility] Address [address] [place] [address] Care Team Providers Care Pastoral Counselor Name Role Phone Issac Wilson MD Primary Care Provider Frances Wood MD Primary Care Provider Unavail able Issac Wilson MD Primary Care Provider Jeri Ramírez Pcp Primary Care Provider [facility] Encounter Details Date Type Department Care Team Description 03/15/2015 County Extension Agent Report Medical Records [address] [place] [id number] Justino Tracey Social History Tobacco Use Types [...] on filedocumented in this encounter Care Teams Pastoral Counselor Relationship Specialty Start Date End Date Issac Wilson MD PCP - General Internal Medicine 09/28/13 12/20/18 Frances Gloria MD PCP - General Internal Medicine 12/21/18 12/21/19 Issac Wilson MD PCP - General Internal Medicine 12/22/19 03/12/20 Eusebia Ramírez PCP - General Internal Medicine 03/13/20 documented as of this encounter
--- OUTSIDE RECORDS SUMMARY | 2024-04-21 13:58 | XMS_ITS | Encounter Summary ---
Author Organization [facility] Address [address] [place] [address] Care Team Providers Care Compress Machine Operator Name Role Phone Issac Wilson MD Primary Care Provider Frances Wood MD Primary Care Provider Unavail able Issac Wilson MD Primary Care Provider Jeri Ramírez Pcp Primary Care Provider Unavailjonatan e Encounter Details Date Type Department Care Team Description 08/13/2016 Pt. Non Urgent Medical Question Rheumatology - [address] [address] Brendon Gale MD Social History Tobacco Use [...] on filedocumented in this encounter Care Teams Compress Machine Operator Relationship Specialty Start Date End Date Issac Wilson MD PCP - General Internal Medicine 09/28/13 12/20/18 Frances Gloria MD PCP - General Internal Medicine 12/21/18 12/21/19 Issac Wilson MD PCP - General Internal Medicine 12/22/19 03/12/20 Eusebia Ramírez PCP - General Internal Medicine 03/13/20 documented as of this encounter
--- OUTSIDE RECORDS SUMMARY | 2024-04-21 13:58 | XMS_ITS | Encounter Summary ---
Author Organization [facility] Address [address] [place] [address] Care Team Providers Care Insurance Sales Agent Name Role Phone Issac Wilson MD Primary Care Provider Frances Wood MD Primary Care Provider [facility] Issac Wilson MD Primary Care Provider Jeri Ramírez, Pcp Primary Care Provider Unavailabl e Reason for Visit * Reason Onset Date Comments Mychart Rx Refill 09/28/2016 Encounter Details Date Type Department Care Team Description 09/28/2016 Refill Medicine/Pediatrics - [address] [id number] Roscoe Díaz MD Mychart Rx Refill Social [...] MG tablet [Roscoe Díaz MD] Preferred pharmacy: [facility] [id number] AT Comment: Need new prescriptions please. Thank you. Medication renewals requested in this message routed to other providers: atorvastatin (LIPITOR) 20 MG tablet [Issac Wilson MD] documented in this encounter Plan of Treatment Not on file documented as of this encounter Visit Diagnoses Not on filedocumented in this encounter Care Teams Insurance Sales Agent Relationship Specialty Start Date End Date Issac Wilson MD PCP - General Internal Medicine 09/28/13 12/20/18 Frances Gloria MD PCP - General Internal Medicine 12/21/18 12/21/19 Issac Wilson MD PCP - General Internal Medicine 12/22/19 03/12/20 [facility] PCP - General Internal Medicine 03/13/20 documented as of this encounter
--- OUTSIDE RECORDS SUMMARY | 2024-04-21 13:58 | XMS_ITS | Encounter Summary ---
Author Organization [facility] Address [address] [place] [address] Care Team Providers Care Photo Finish Photographer Name Role Phone Roscoe Strickland MD Primary Care Provider Issac Barragan MD Primary Care Provider Frances Wood MD Primary Care Provider Issac Reynolds MD Primary Care Provider Jeri Ramírez, Pcp Primary Care Provider [facility] e Reason for Visit * Reason Onset Date Comments Dioni 08/05/2012 Encounter Details Date Type Department Care Team Description 08/05/2012 Telephone Adult Medicine [address] [address] Roscoe Strickland MD Hedis Social History Tobacco Use Types Packs/Day Years [...] encounter Miscellaneous Notes * Telephone Encounter - Tiesha Senior - 08/05/2012 10:32 AM EDT Patient keeps seeing on MyChart and her AVS that she is overdue for a baseline health exam. She hadher physical 02/19/12. Could you please update this? documented in this encounter Plan of Treatment Not on file documented as of this encounter Visit Diagnoses Not on filedocumented in this encounter Care Teams Photo Finish Photographer Relationship Specialty Start Date End Date Roscoe Strickland MD PCP - General 02/15/07 09/27/13 Issac Wilson MD PCP - General Internal Medicine 09/28/13 12/20/18 Frances Gloria MD PCP - General Internal Medicine 12/21/18 12/21/19 Issac Wilson MD PCP - General Internal Medicine 12/22/19 03/12/20 [facility] PCP - General Internal Medicine 03/13/20 documented as of this encounter
--- OUTSIDE RECORDS SUMMARY | 2024-04-21 13:58 | XMS_ITS | Encounter Summary ---
Author Organization [facility] Address [address] [place] [address] Care Team Providers Care Oil Well Logging Engineer Name Role Phone Roscoe Strickland MD Primary Care Provider Issac Barragan MD Primary Care Provider Frances Wood MD Primary Care Provider [facility] Issac Short MD Primary Care Provider Jeri Ramírez Pcp Primary Care Provider [facility] Encounter Details Date Type Department Care Team Description 01/23/2013 [facility] Medical Records [address] [place] [address] Brendon Bell MD [address] [place] [id number] Social History Tobacco Use Types Packs/Day Years [...] on filedocumented in this encounter Care Teams Oil Well Logging Engineer Relationship Specialty Start Date End Date Roscoe Strickland MD PCP - General 02/15/07 09/27/13 Issac Wilson MD PCP - General Internal Medicine 09/28/13 12/20/18 Frances Gloria MD PCP - General Internal Medicine 12/21/18 12/21/19 Issac Wilson MD PCP - General Internal Medicine 12/22/19 03/12/20 [facility], Pcp PCP - General Internal Medicine 03/13/20 documented as of this encounter
--- OUTSIDE RECORDS SUMMARY | 2024-04-21 13:58 | XMS_ITS | Encounter Summary ---
Author Organization [facility] Address [address] [place] [address] Care Team Providers Care Recycle Worker Name Role Phone Issac Wilson MD Primary Care Provider Frances Wood MD Primary Care Provider [facility] Issac Wilson MD Primary Care Provider Jeri Ramírez, Pcp Primary Care Provider [facility] Encounter Details Date Type Department Care Team Description 09/23/2016 Refill Adult Medicine [address] [address] Issac Wilson MD Social History Tobacco Use [...] hr tablet [Issac Wilson MD] Preferred pharmacy: [id number] - [place], [place] - [address] AT Comment: need new prescription documented in this encounter Plan of Treatment Not on file documented as of this encounter Visit Diagnoses Not on filedocumented in this encounter Care Teams Recycle Worker Relationship Specialty Start Date End Date Issac Wilson MD PCP - General Internal Medicine 09/28/13 12/20/18 Frances Gloria MD PCP - General Internal Medicine 12/21/18 12/21/19 Issac Wilson MD PCP - General Internal Medicine 12/22/19 03/12/20 [facility], Pcp PCP - General Internal Medicine 03/13/20 documented as of this encounter
--- OUTSIDE RECORDS SUMMARY | 2024-04-21 13:58 | XMS_ITS | Encounter Summary ---
Author Organization [facility] Address [address] [place] [address] Care Team Providers Care Abrasive Band Winder Name Role Phone Issac Wilson MD Primary Care Provider Frances Wood MD Primary Care Provider [facility] Issac Wilson MD Primary Care Provider Jeri Ramírez Pcp Primary Care Provider [facility] Reason for Visit * Reason Onset Date Comments My Chart Appointment 11/03/2017 dizziness 11/03/2017 Headache 11/03/2017 Encounter Details Date Type Department Care Team Description 11/03/2017 Telephone Adult Medicine [address] [address] Issac Wilson MD My Chart Appointment; dizziness; [...] on filedocumented in this encounter Care Teams Abrasive Band Winder Relationship Specialty Start Date End Date Issac Wilson MD PCP - General Internal Medicine 09/28/13 12/20/18 Frances Gloria MD PCP - General Internal Medicine 12/21/18 12/21/19 Issac Wilson MD PCP - General Internal Medicine 12/22/19 [facility]12[facility] 03/13/20 documented as of this encounter
--- OUTSIDE RECORDS SUMMARY | 2024-04-21 13:58 | XMS_ITS | Encounter Summary ---
Author Organization [facility] Address [address] [place] [address] Care Team Providers Care Butter Melter Name Role Phone Roscoe Strickland MD Primary Care Provider Issac Barragan MD Primary Care Provider Frances Wood MD Primary Care Provider Issac Reynolds MD Primary Care Provider Jeri Ramírez Pcp Primary Care Provider Unavailjonatan sherman Encounter Details Date Type Department Care Team Description 05/27/2013 [facility] Medical Records [address] [place] [id number] Nahun Perdue PA-C Social History Tobacco Use [...] on filedocumented in this encounter Care Teams Butter Melter Relationship Specialty Start Date End Date Roscoe [...]
--- OUTSIDE RECORDS SUMMARY | 2024-04-21 13:58 | XMS_ITS | Encounter Summary ---
Author Organization [facility] Address [address] [place] [address] Care Team Providers Care Button Machine Operator Name Role Phone Issac Wilson MD Primary Care Provider Frances Wood MD Primary Care Provider Unavail able Issac Wilson MD Primary Care Provider Jeri Ramírez Pcp Primary Care Provider [facility] e Encounter Details Date Type Department Care Team Description 03/30/2014 Electronic Parts Salesperson Report Medical Records [address] [place] [id number] Jonny Gomez Social History Tobacco Use Types [...] on filedocumented in this encounter Care Teams Button Machine Operator Relationship Specialty Start Date End Date Issac Wilson MD PCP - General Internal Medicine 09/28/13 12/20/18 Frances Gloria MD PCP - General Internal Medicine 12/21/18 12/21/19 Issac Wilson MD PCP - General Internal Medicine 12/22/19 03/12/20 Eusebia Ramírez PCP - General Internal Medicine 03/13/20 documented as of this encounter
--- OUTSIDE RECORDS SUMMARY | 2024-04-21 13:58 | XMS_ITS | Encounter Summary ---
Author Organization [facility] Address [address] [place] [address] Care Team Providers Care Planting Material Carrier Name Role Phone Issac Wilson MD Primary Care Provider Frances Wood MD Primary Care Provider Issac Reynolds MD Primary Care Provider Jeri Ramírez, Pcp Primary Care Provider Unavailjonatan e Encounter Details Date Type Department Care Team Description 01/10/2018 Refill Physiatry - [address] [address] Kirill Guardado DO Social History Tobacco Use [...] MG capsule [Kirill Guardado DO] Preferred pharmacy: [facility] [address] [place] [address] RICHI KNIGHT AT [facility] Comment: documented in this encounter Plan of Treatment Not on file documented as of this encounter Visit Diagnoses Diagnosis Chronic pain syndrome documented in this encounter Care Teams Planting Material Carrier Relationship Specialty Start Date End Date Issac Wilson MD PCP - General Internal Medicine 09/28/13 12/20/18 Frances Gloria MD PCP - General Internal Medicine 12/21/18 12/21/19 Issac Wilson MD PCP - General Internal Medicine 12/22/19 03/12/20 [facility], Pcp PCP - General Internal Medicine 03/13/20 documented as of this encounter
--- OUTSIDE RECORDS SUMMARY | 2024-04-21 13:58 | XMS_ITS | Encounter Summary ---
Author Organization [facility] Address [address] [place] [address] Care Team Providers Care Political Research Scientist Name Role Phone Issac Wilson MD Primary Care Provider Frances Wood MD Primary Care Provider Unavail able Issac Wilson MD Primary Care Provider Jeri Ramírez Pcp Primary Care Provider [facility] Encounter Details Date Type Department Care Team Description 05/05/2016 Release of Information Medical Records [address] [place] [address] Abstract, Provider Social History Tobacco Use Types [...] on filedocumented in this encounter Care Teams Political Research Scientist Relationship Specialty Start Date End Date Issac Wilson MD PCP - General Internal Medicine 09/28/13 12/20/18 Frances Gloria MD PCP - General Internal Medicine 12/21/18 12/21/19 Issac Wilson MD PCP - General Internal Medicine 12/22/19 03/12/20 Eusebia Ramírez PCP - General Internal Medicine 03/13/20 documented as of this encounter
--- OUTSIDE RECORDS SUMMARY | 2024-04-21 13:58 | XMS_ITS | Encounter Summary ---
Author Organization [facility] Address [address] [place] [address] Care Team Providers Care Marketing Production Coordinator Name Role Phone Roscoe Strickland MD Primary Care Provider Issac Barragan MD Primary Care Provider Frances Wood MD Primary Care Provider [facility] Issac Short MD Primary Care Provider Jeri Ramírez Pcp Primary Care Provider Unavailjonatan sherman Encounter Details Date Type Department Care Team Description 02/17/2013 Constitutional Law Professor Report Medical Records [address] [place] [id number] Rc Razo MD Social History Tobacco Use [...] on filedocumented in this encounter Care Teams Marketing Production Coordinator Relationship Specialty Start Date End Date [...]
--- OUTSIDE RECORDS SUMMARY | 2024-04-21 13:58 | XMS_ITS | Encounter Summary ---
Author Organization [facility] Address [address] [place] [address] Care Team Providers Care Community Health Nurse Supervisor Name Role Phone Roscoe Strickland MD Primary Care Provider Issac Barragan MD Primary Care Provider Frances Wood MD Primary Care Provider [facility] Issac Short MD Primary Care Provider Jeri Ramírez Pcp Primary Care Provider Unavailjonatan sherman Encounter Details Date Type Department Care Team Description 10/12/2012 Carpenter Assistant Installer Report Medical Records [address] [place] [address] Rc Razo MD Social History Tobacco Use [...] on filedocumented in this encounter Care Teams Community Health Nurse Supervisor Relationship Specialty Start Date End Date [...]
--- OUTSIDE RECORDS SUMMARY | 2024-04-21 13:58 | XMS_ITS | Encounter Summary ---
Author Organization [facility] Address [address] [place] [address] Care Team Providers Care Marble Helper Name Role Phone Roscoe Strickland MD Primary Care Provider Issac Barragan MD Primary Care Provider Frances Wood MD Primary Care Provider [facility] Issac Short MD Primary Care Provider Jeri Ramírez Pcp Primary Care Provider Unavailjonatan sherman Encounter Details Date Type Department Care Team Description 02/17/2012 Corporate Investigator Report Medical Records [address] [place] [address] Rc Razo MD Social History Tobacco Use [...] on filedocumented in this encounter Care Teams Marble Helper Relationship Specialty Start Date End Date [...]
--- OUTSIDE RECORDS SUMMARY | 2024-04-21 13:58 | XMS_ITS | Encounter Summary ---
Author Organization [facility] Address [address] [place] [address] Care Team Providers Care Make Up Girl Name Role Phone Issac Wilson MD Primary Care Provider Frances Wood MD Primary Care Provider [facility] Issac Wilson MD Primary Care Provider Jeri Ramírez Pcp Primary Care Provider [facility] e Encounter Details Date Type Department Care Team Description 09/01/2016 Pt. Non Urgent Medical Question Adult Medicine [address] [address] Jose Maria Carlisle PA-C [address] [place] [address] Social History Tobacco Use Types Packs/Day Years [...] on filedocumented in this encounter Care Teams Make Up Girl Relationship Specialty Start Date End Date Issac Wilson MD PCP - General Internal Medicine 09/28/13 12/20/18 Frances Gloria MD PCP - General Internal Medicine 12/21/18 12/21/19 Issac Wilson MD PCP - General Internal Medicine 12/22/19 03/12/20 [facility], Pcp PCP - General Internal Medicine 03/13/20 documented as of this encounter
--- OUTSIDE RECORDS SUMMARY | 2024-04-21 13:58 | XMS_ITS | Encounter Summary ---
Author Organization [facility] Address [address] [place] [address] Care Team Providers Care Director Data Management Name Role Phone Frances Gloria MD Primary Care Provider [facility] Issac Short MD Primary Care Provider Jeri Ramírez, Pcp Primary Care Provider [facility] Encounter Details Date Type Department Care Team Description 02/20/2019 Digital Associate Report Medical Records [address] [place] [address] Kushal Ferrer Social History Tobacco Use Types [...] filedocumented in this encounter Care Teams Director Data Management Relationship Specialty Start Date End Date Frances Gloria MD PCP - General Internal Medicine 12/21/18 12/21/19 Issac Wilson MD PCP - General Internal Medicine 12/22/19 03/12/20 Eusebia Ramírez PCP - General Internal Medicine 03/13/20 documented as of this encounter
--- OUTSIDE RECORDS SUMMARY | 2024-04-21 13:58 | XMS_ITS | Encounter Summary ---
Author Organization [facility] Address [address] [place] [address] Care Team Providers Care Systems Analyst Name Role Phone Issac Wilson MD Primary Care Provider Frances Wood MD Primary Care Provider Unavail able Issac Wilson MD Primary Care Provider Jeri Ramírez, Pcp Primary Care Provider Unavailabl e Encounter Details Date Type Department Care Team Description 09/15/2018 Orders Only Adult Medicine [address] [address] Issac Wilson MD Screening examination for pulmonary [...] tuberculosis documented in this encounter Care Teams Systems Analyst Relationship Specialty Start Date End Date Issac Wilson MD PCP - General Internal Medicine 09/28/13 12/20/18 Frances Gloria MD PCP - General Internal Medicine 12/21/18 12/21/19 Issac Wilson MD PCP - General Internal Medicine 12/22/19 03/12/20 [facility] PCP - General Internal Medicine 03/13/20 documented as of this encounter
--- OUTSIDE RECORDS SUMMARY | 2024-04-21 13:58 | XMS_ITS | Encounter Summary ---
Author Organization [facility] Address [address] [place] [address] Care Team Providers Care Civil Engineer In Training Name Role Phone Issac Wilson MD Primary Care Provider Frances Wood MD Primary Care Provider Issac Reynolds MD Primary Care Provider Jeri Ramírez, Pcp Primary Care Provider Unavailabl e Reason for Visit * Reason Comments E-prescribe Rx Request Encounter Details Date Type Department Care Team Description 10/10/2018 Refill Adult Medicine [address] [address] Jose Maria Carlisle PA-C [address] [place] [phone] E-prescribe Rx Request Social History Tobacco Use [...] encounter Miscellaneous Notes * Telephone Encounter - Issac Wilson - 10/11/2018 1:01 PM EDT She needs to get this med from her glass rolling machine operator * Telephone Encounter - Mirian Sarmiento M.A. - 10/11/2018 12:59 PM EDT Last issue date of medication reviewed. Patient is due for medication. * Telephone Encounter - Lina Jonathan - 10/10/2018 9:18 AM EDT Patient would like script to be: E-PRESCRIBED/FAXED TO PHARMACY WHEN WAS THE PATIENT'S LAST APPOINTMENT IN ADULT MEDICINE? 08/15/18 WHEN WAS THE LAST TIME THE PATIENT SAW THEIR PCP? Same as above Does patient have an upcoming appointment? Yes 12/19/18 (THE MEDICATION REQUESTED IS ON THE MED [...] N/A Patients current insurance carrier is: Payor: -[place] POS / Plan: PPO $30 [id number] / ProductType: PPO [id number] documented in this encounter Plan of Treatment Not on file documented as of this encounter Visit Diagnoses Diagnosis Seropositive rheumatoid arthritis (HCC) Rheumatoid arthritis documented in this encounter Care Teams Civil Engineer In Training Relationship Specialty Start Date End Date Issac Wilson MD PCP - General Internal Medicine 09/28/13 12/20/18 Frances Gloria MD PCP - General Internal Medicine 12/21/18 12/21/19 Issac Wilson MD PCP - General Internal Medicine 12/22/19 03/12/20 [facility], Pcp PCP - General Internal Medicine 03/13/20 documented as of this encounter
--- OUTSIDE RECORDS SUMMARY | 2024-04-21 13:58 | XMS_ITS | Encounter Summary ---
Author Organization [facility] Address [address] [place] [address] Care Team Providers Care Body Cleaner Name Role Phone Frances Gloria MD Primary Care Provider Issac Reynolds MD Primary Care Provider Jeri ervin [facility], Pcp Primary Care Provider Unavailabl e Reason for Visit * Reason Onset Date Comments immunizations 10/31/2019 Encounter Details Date Type Department Care Team Description 10/31/2019 Telephone Adult Medicine [address] [address] Frances Gloria MD immunizations Social History Tobacco [...] DRE/PPO POS / Plan: PPO $25 [place] [id number] / Product Type: PPO [id number] Pt wants all imunization record printed and placed in pt pickling drum operator Patient is requesting a list of their [...] on filedocumented in this encounter Care Teams Body Cleaner Relationship Specialty Start Date End Date Frances Gloria MD PCP - General Internal Medicine 12/21/18 12/21/19 Issac Wilson MD PCP - General Internal Medicine 12/22/19 03/12/20 [facility], Pcp PCP - General Internal Medicine 03/13/20 documented as of this encounter
--- OUTSIDE RECORDS SUMMARY | 2024-04-21 13:58 | XMS_ITS | Encounter Summary ---
Author Organization [facility] Address [address] [place] [address] Care Team Providers Care Boat Hop Name Role Phone Issac Wilson MD Primary Care Provider Frances Wood MD Primary Care Provider Unavail able Issac Wilson MD Primary Care Provider Jeri Ramírez Pcp Primary Care Provider Unavailabl e Reason for Visit * Reason Onset Date Comments Medication 03/04/2018 Encounter Details Date Type Department Care Team Description 03/04/2018 Telephone Gastroenterology - [address] [place] [phone] Senthil Reyes MD Medication Social History [...] on filedocumented in this encounter Care Teams Boat Hop Relationship Specialty Start Date End Date Issac Wilson MD PCP - General Internal Medicine 09/28/13 12/20/18 Frances Gloria MD PCP - General Internal Medicine 12/21/18 12/21/19 Issac Wilson MD PCP - General Internal Medicine 12/22/19 03/12/20 [facility], Pcp PCP - General Internal Medicine 03/13/20 documented as of this encounter
--- OUTSIDE RECORDS SUMMARY | 2024-04-21 13:58 | XMS_ITS | Encounter Summary ---
Author Organization [facility] Address [address] [place] [address] Care Team Providers Care Flooring Machine Feeder Name Role Phone Roscoe Strickland MD Primary Care Provider Issac Barragan MD Primary Care Provider Frances Wood MD Primary Care Provider Issac Reynolds MD Primary Care Provider Jeri Ramírez Pcp Primary Care Provider Miryam sherman Encounter Details Date Type Department Care Team Description 09/01/2012 Release of Information Medical Records [address] [place] [address] Abstract, Provider Social History Tobacco Use Types [...] on filedocumented in this encounter Care Teams Flooring Machine Feeder Relationship Specialty Start Date End Date Roscoe [...]
--- OUTSIDE RECORDS SUMMARY | 2024-04-21 13:58 | XMS_ITS | Encounter Summary ---
Author Organization [facility] Address [address] [place] [address] Care Team Providers Care Information Clerk Automobile Club Name Role Phone Frances Gloria MD Primary Care Provider Issac Reynolds MD Primary Care Provider Jeri Ramírez, Pcp Primary Care Provider [facility] Encounter Details Date Type Department Care Team Description 08/31/2019 Pt. Non Urgent Medical Question Adult Medicine [address] [address] [address] [address] Social History Tobacco Use Types Packs/Day Years [...] on filedocumented in this encounter Care Teams Information Clerk Automobile Club Relationship Specialty Start Date End Date Frances Gloria MD PCP - General Internal Medicine 12/21/18 12/21/19 Issac Wilson MD PCP - General Internal Medicine 12/22/19 03/12/20 Darrell, Eusebia PCP - General Internal Medicine 03/13/20 documented as of this encounter
--- OUTSIDE RECORDS SUMMARY | 2024-04-21 13:58 | XMS_ITS | Encounter Summary ---
Author Organization [facility] Address [address] [place] [address] Care Team Providers Care Community Planning Technician Name Role Phone Roscoe Strickland MD Primary Care Provider Issac Barragan MD Primary Care Provider Frances Wood MD Primary Care Provider [facility] Issac Short MD Primary Care Provider Jeri Ramírez Pcp Primary Care Provider [facility] Encounter Details Date Type Department Care Team Description 05/28/2013 [facility] Medical Records [address] [place] [address] Brendon Bell MD [address] [place] [address] Social History Tobacco Use Types Packs/Day Years [...] filedocumented in this encounter Care Teams Community Planning Technician Relationship Specialty Start Date End Date [...]
--- OUTSIDE RECORDS SUMMARY | 2024-04-21 13:58 | XMS_ITS | Encounter Summary ---
Author Organization [facility] Address [address] [place] [address] Care Team Providers Care Polarity Tester Name Role Phone Issac Wilson MD Primary Care Provider Frances Wood MD Primary Care Provider Unavail able Issac Wilson MD Primary Care Provider Jeri Ramírez Pcp Primary Care Provider [facility] Encounter Details Date Type Department Care Team Description 01/20/2014 Hospital Medical Records [address] [place] [address] Jose Maria Tran Social History Tobacco Use [...] on filedocumented in this encounter Care Teams Polarity Tester Relationship Specialty Start Date End Date Issac Wilson MD PCP - General Internal Medicine 09/28/13 12/20/18 Frances Gloria MD PCP - General Internal Medicine 12/21/18 12/21/19 Issac Wilson MD PCP - General Internal Medicine 12/22/19 03/12/20 Eusebia Ramírez PCP - General Internal Medicine 03/13/20 documented as of this encounter
--- OUTSIDE RECORDS SUMMARY | 2024-04-21 13:58 | XMS_ITS | Encounter Summary ---
Author Organization [facility] Address [address] [place] [address] Care Team Providers Care Sandwich Artist Name Role Phone Issac Wilson MD Primary Care Provider Frances Wood MD Primary Care Provider [facility] Issac Wilson MD Primary Care Provider Jeri Ramírez, Pcp Primary Care Provider Unavailabl e Reason for Visit * Reason Onset Date Comments refill request 07/02/2014 Encounter Details Date Type Department Care Team Description 07/02/2014 Refill Adult Medicine [address] [address] Issac Wilson MD refill request Social History [...] PM EDT Did speak with Fay from [employer] this am * Telephone Encounter - Noreen Perdue - 07/02/2014 3:05 PM EDT Fay from [employer] calling if to see patient has been on medication for since November 2013 continuously, or was there a break in between because this will determine how much of a dose patient will get please her back [id number] * Telephone Encounter - Issac Wilson - 07/02/2014 12:21 PM EDT This should come from her technology intern * Telephone Encounter - Georgina Neville - [...] AETNA / Plan: POS $20 [place] [id number] / Product Type: POS [id number] documented in this encounter Plan of Treatment Not on file documented as of this encounter Visit Diagnoses Diagnosis Rheumatoid arthritis(714.0)- Primary Rheumatoid arthritis documented in this encounter Care Teams Sandwich Artist Relationship Specialty Start Date End Date Issac Wilson MD PCP - General Internal Medicine 09/28/13 12/20/18 Frances Gloria MD PCP - General Internal Medicine 12/21/18 12/21/19 Issac Wilson MD PCP - General Internal Medicine 12/22/19 03/12/20 [facility] PCP - General Internal Medicine 03/13/20 documented as of this encounter
--- OUTSIDE RECORDS SUMMARY | 2024-04-21 13:58 | XMS_ITS | Encounter Summary ---
Author Organization [facility] Address [address] [place] [address] Care Team Providers Care Grease Worker Name Role Phone Issac Wilson MD Primary Care Provider Frances Wood MD Primary Care Provider [facility] Issac Wilson MD Primary Care Provider Jeri Ramírez, Pcp Primary Care Provider Unavailabl e Reason for Visit * Reason Comments E-prescribe Rx Request Encounter Details Date Type Department Care Team Description 12/13/2018 Refill Adult Medicine [facility] [address] [place] [address] [facility] [address] [place] [address] [id number] E-prescribe Rx Request Social History Tobacco Use [...] Payor: DRE/RYAN POS / Plan: PPO $30 [employer] [id number] / ProductType: PPO [id number] documented in this encounter Plan of Treatment Not on file documented as of this encounter Visit Diagnoses Diagnosis Globus sensation Gastrointestinal malfunction arising from mental factors Gastroesophageal reflux disease without esophagitis Esophageal reflux Hiatal hernia Diaphragmatic hernia without mention of obstruction or gangrene documented in this encounter Care Teams Grease Worker Relationship Specialty Start Date End Date Issac Wilson MD PCP - General Internal Medicine 09/28/13 12/20/18 Frances Gloria MD PCP - General Internal Medicine 12/21/18 12/21/19 Issac Wilson MD PCP - General Internal Medicine 12/22/19 03/12/20 [facility] - General Internal Medicine 03/13/20 documented as of this encounter
--- OUTSIDE RECORDS SUMMARY | 2024-04-21 13:58 | XMS_ITS | Encounter Summary ---
Author Organization [facility] Address [address] [place] [address] Care Team Providers Care Social Media Strategist Name Role Phone Roscoe Strickland MD Primary Care Provider Issac Barragan MD Primary Care Provider Frances Wood MD Primary Care Provider Issac Reynolds MD Primary Care Provider Jeri Ramírez Pcp Primary Care Provider Miryam sherman Encounter Details Date Type Department Care Team Description 05/20/2011 [facility] [place] [address] Jose Maria Bonilla MD Social History Tobacco [...] on filedocumented in this encounter Care Teams Social Media Strategist Relationship Specialty Start Date End Date Roscoe [...]
--- OUTSIDE RECORDS SUMMARY | 2024-04-21 13:58 | XMS_ITS | Encounter Summary ---
Author Organization [facility] Address [address] [place] [address] Care Team Providers Care Project Management Professional Name Role Phone Roscoe Strickland MD Primary Care Provider Issac Barragan MD Primary Care Provider Frances Wood MD Primary Care Provider [facility] Issac Short MD Primary Care Provider Jeri Ramírez Pcp Primary Care Provider Unavailjonatan sherman Encounter Details Date Type Department Care Team Description 04/19/2013 Clipping Marker Report Medical Records [address] [place] [address] Rc Razo MD Social History Tobacco Use [...] on filedocumented in this encounter Care Teams Project Management Professional Relationship Specialty Start Date End Date Roscoe [...]
--- OUTSIDE RECORDS SUMMARY | 2024-04-21 13:58 | XMS_ITS | Encounter Summary ---
Author Organization [facility] Address [address] [place] [address] Care Team Providers Care Gas Refrigerator Servicer Name Role Phone Ana Laura Horn MD Primary Care Provider Issac Barragan MD Primary Care Provider Frances Wood MD Primary Care Provider Issac Reynolds MD Primary Care Provider Jeri Ramírez, Pcp Primary Care Provider Unavailabl e Reason for Visit * Reason Comments Encounter Details Date Type Department Care Team Description 01/26/[address] [address] Ana Laura Horn MD Social History Tobacco Use Types Packs/Day [...] encounter Miscellaneous Notes * Telephone Encounter - Jazmin Ku R.N. - 01/26/2013 3:58 PM EST Pt is at home, she is taking doxycycline 100 mg BID * Telephone Encounter - Jazmin Ku R.N. - 01/26/2013 1:16 PM EST Message copied by JAZMIN KU R.N. on WedJan 26, 2013 1:16 PM ------ Message from: ANA LAURA HORN Created: WedJan 24, 2013 3:43 PM Patient recently had incision and drainage, not sure she is still in the hospital or home please check in to see if she is on antibiotics documented in this encounter Plan of Treatment Not on file documented as of this encounter Visit Diagnoses Not on filedocumented in this encounter Care Teams Gas Refrigerator Servicer Relationship Specialty Start Date End Date Ana Laura Horn MD PCP - General 02/15/07 09/27/13 Issac Wilson MD PCP - General Internal Medicine 09/28/13 12/20/18 Frances Gloria MD PCP - General Internal Medicine 12/21/18 12/21/19 Issac Wilson MD PCP - General Internal Medicine 12/22/19 03/12/20 [facility] PCP - General Internal Medicine 03/13/20 documented as of this encounter
--- OUTSIDE RECORDS SUMMARY | 2024-04-21 13:58 | XMS_ITS | Encounter Summary ---
Author Organization [facility] Address [address] [place] [address] Care Team Providers Care Re Recording Mixer Name Role Phone Roscoe Strickland MD Primary Care Provider Issac Barragan MD Primary Care Provider Frances Wood MD Primary Care Provider Issac Reynolds MD Primary Care Provider Jeri Ramírez Pcp Primary Care Provider Unavailjonatan sherman Encounter Details Date Type Department Care Team Description 05/26/2013 [facility] Medical Records [address] [place] [address] Carlos Alberto Knox MD Social History Tobacco [...] on filedocumented in this encounter Care Teams Re Recording Mixer Relationship Specialty Start Date End Date Roscoe [...]
--- OUTSIDE RECORDS SUMMARY | 2024-04-21 13:58 | XMS_ITS | Clinical Summary ---
Author Organization [facility] Address [address] [place] [address] Care Team Providers Care Payroll Accounting Clerk Name Role Phone Unavailable Primary Care Provider Unavailabl e Surgical History Surgery Date Site/Laterality Comments TUBAL LIGATION PROCEDURE: HISTORICAL TUBAL LIGATION HERNIA REPAIR Bilateral PROCEDURE: HISTORICAL HERNIA REPAIR/ING; COMMENT: around age 8 y/o BLADDER SUSPENSION 2010 PROCEDURE: HISTORICAL BLADDER SUSPENSION; COMMENT: Dr. Maldonado, bladder sling EYE SURGERY PROCEDURE: MS TRABECULOPLASTY BY LASER SURGERY; COMMENT: right lasik on right OTHER SURGICAL HISTORY PROCEDURE: MS REPOSITIONING IO LENS PROSTHESIS REQ INC SPX; COMMENT: left eye FOOT SURGERY PROCEDURE: HISTORICAL FOOT SURGERY; COMMENT: plantar fascia repair bilateral OTHER SURGICAL HISTORY PROCEDURE: MS SUTURE NERVE REQ XTNSV MOBIL/TRPOS NERVE; COMMENT: left ulnar nerve UPPER GASTROINTESTINAL ENDOSCOPY 02/23/2012 PROCEDURE: MS UPPER GI ENDOSCOPY PERFORMED COLONOSCOPY 03/12/2009 PROCEDURE: [...] abscesses due to MRSA. Off/on meds late 1784-2967. Enbrel stopped because of recurrent infections. Leflunomide [...] RESULTING AGENCY - 07/06/2018 4:50 PM EDT [id number] THINPREP PAP, IMAGED: NEGATIVE FOR SQUAMOUS INTRAEPITHELIAL [...]
== END 2024-04-21 12:51 | disposition home or self-care (01) ==
PROVIDERS: PCP Internal Medicine; Visit Provider Student in an Organized Health Care Education/Training Program
DX: M06.09 Rheumatoid arthritis without rheumatoid factor, multiple sites (principal); Z79.899 Other long term (current) drug therapy; R74.01 Elevation of levels of liver transaminase levels; M85.88 Other specified disorders of bone density and structure, other site; R07.81 Pleurodynia
CPT/HCPCS: 99214

== ENCOUNTER 2024-05-02 13:52 | Outpatient (AMB) | payer BC, SELFPAY ==
--- NOTE | 2024-05-02 13:54 | A.OFFVIS_ITS ---
Vital Signs 05/02/24 13:55 Height 5 ft 5.5 in Weight 200 lb 9.93 oz BMI 32.9 BP 119/59 L Blood Pressure Location Rt brachial Position Sitting Pulse 68 Pulse Source Pulse Oximeter Pulse Oximetry (%) 94 Oxygen Delivery Method Room Air Intake Visit Reasons: s/p PET scan 3/ Intake Note: Marian presents in follow up s/p PET scan. Patient c/o: Patient reports she continues having some pain from her left back side. Denies other symptoms or concerns today. Power Switchboard Operator Required: No Accompanied by: Self / Same As Patient Allergies etanercept [From ENBREL] Allergy (Intermediate, Verified 05/02/24 13:59) RASH tofacitinib [From Xeljanz] Adverse Reaction (Intermediate, Verified 05/02/24 13:59) high LFT HPI Comments Details: Patient presents for follow-up regarding left lower lobe lung lesion. She has no respiratory issues or complaints. Weight, energy, appetite are all stable. PET scan was negative. [facility] Medical History UTI (urinary tract infection) Osteopenia Pneumonia Elevated transaminase level Long-term use of immunosuppressant medication COVID-19 vaccine administered Hidradenitis suppurativa of left axilla Urge incontinence Hypercholesterolemia MRSA infection GERD (gastroesophageal reflux disease) Rheumatoid arthritis Hypothyroid Surgical History TMJ (sprain of temporomandibular joint) History of esophagogastroduodenoscopy (EGD) Hx of colonoscopy History of eye surgery Ulnar neuropathy at elbow of left upper extremity Plantar fasciitis, bilateral H/O tubal ligation Hx of tonsillectomy Inguinal hernia Family History Mother Myocardial infarct Father Lung cancer Paternal Uncle Bladder cancer Paternal Aunt Stomach cancer Maternal Uncle Myocardial infarct Social History Housing: House Are you a primary hospice care consultant to a significant other at home: No Do you presently have visiting nurse or other home services: No Alcohol intake: current Alcohol intake frequency: a few times a month Alcohol type: wine and hard liquor Comment: 3-4 x a month glass of wine Patient Tobacco Use Status: Never used Tobacco e-Cigarette/Vaping Use: Never Used Second Hand Smoke Exposure: No Advance Directives Date on File: 09/17/20 service: No Current occupational status: employed 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 Clavicular, or axillary adenopathy. Chest sounds bilaterally. GI Other: Abdomen is moderately corpulent, soft, benign Assessment & Plan Assessment & Plan (1) Lesion of left lung: Code(s): R91.1 - Solitary pulmonary nodule Category: Surgical Plan Patient was scheduled for surveillance follow-up CT scan in September. She will see me after the study or p.r.n.. All questions answered. Coding Level of Care Code Est Pt Level 4 (56441) Diagnoses Lesion of left lung R91.1
[2024-05-02 13:55] VITALS: BP 119/59; PULSE 68; O2SAT 94; BMI 32.9
--- OUTSIDE RECORDS SUMMARY | 2024-05-02 16:27 | XMS_ITS | Encounter Summary ---
Author Organization [facility] Address [address] [place] [address] Care Team Providers Care Gas And Oil Servicer Name Role Phone Issac Wilson MD Primary Care Provider Frances Wood MD Primary Care Provider [facility] Issac Wilson MD Primary Care Provider Jeri Ramírez, Pcp Primary Care Provider Unavailabl e Reason for Visit * Reason Comments E-prescribe Rx Request Encounter Details Date Type Department Care Team Description 12/13/[address] [facility] [address] [place] [address] [facility] [address] [place] [address] [id number] E-prescribe Rx Request Social History Tobacco Use [...] Payor: DRE/RYAN POS / Plan: PPO $30 [id number] / ProductType: PPO [id number] documented in this encounter Plan of Treatment Not on file documented as of this encounter Visit Diagnoses Diagnosis Globus sensation Gastrointestinal malfunction arising from mental factors Gastroesophageal reflux disease without esophagitis Esophageal reflux Hiatal hernia Diaphragmatic hernia without mention of obstruction or gangrene documented in this encounter Care Teams Gas And Oil Servicer Relationship Specialty Start Date End Date Issac Wilson MD PCP - General Internal Medicine 09/28/13 12/20/18 Frances Gloria MD PCP - General Internal Medicine 12/21/18 12/21/19 Issac Wilson MD PCP - General Internal Medicine 12/22/19 [facility] 03/13/20 documented as of this encounter
--- OUTSIDE RECORDS SUMMARY | 2024-05-02 16:27 | XMS_ITS | Encounter Summary ---
Author Organization [facility] Address [address] [place] [address] Care Team Providers Care Pulp Beater Name Role Phone Ana Laura Horn MD Primary Care Provider Issac Barragan MD Primary Care Provider Frances Wood MD Primary Care Provider Issac Reynolds MD Primary Care Provider Jeri Ramírez, Pcp Primary Care Provider Unavailabl e Reason for Visit * Reason Comments Encounter Details Date Type Department Care Team Description 01/26/[address] [address] Ana Laura Horn MD Social History Tobacco [...] on filedocumented in this encounter Care Teams Pulp Beater Relationship Specialty Start Date End Date Ana Laura Horn MD PCP - General 02/15/07 09/27/13 Issac Wilson MD PCP - General Internal Medicine 09/28/13 12/20/18 Frances Gloria MD PCP - General Internal Medicine 12/21/18 12/21/19 Issac Wilson MD PCP - General Internal Medicine 12/22/19 03/12/20 [facility] - General Internal Medicine 03/13/20 documented as of this encounter
--- OUTSIDE RECORDS SUMMARY | 2024-05-02 16:27 | XMS_ITS | Encounter Summary ---
Author Organization 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 [...] N/A Patients current insurance carrier is: Payor: -DC/PPO POS / Plan: PPO $30 [id number] / ProductType: PPO [id number] documented in this encounter Plan of Treatment Not on file documented as of this encounter Visit Diagnoses Diagnosis Seropositive rheumatoid arthritis (HCC) Rheumatoid arthritis documented in this encounter Care Teams Fiber Design Engineer Relationship Specialty Start Date End Date Issac Wilson MD PCP - General Internal Medicine 09/28/13 12/20/18 Frances Gloria MD PCP - General Internal Medicine 12/21/18 12/21/19 Issac Wilson MD PCP - General Internal Medicine 12/22/19 03/12/20 [facility], Pcp PCP - General Internal Medicine 03/13/20 documented as of this encounter
--- OUTSIDE RECORDS SUMMARY | 2024-05-02 16:27 | XMS_ITS | Encounter Summary ---
Author Organization [facility] Address [address] [place] [address] Care Team Providers Care Body Presser Name Role Phone Frances Gloria MD Primary Care Provider Issac Reynolds MD Primary Care Provider Jeri Ramírez, Pcp [facility] Encounter Details Date Type Department Care Team Description 06/28/2019 Pt. Non Urgent Medical Question Rheumatology - [address] [address] Brendon Gale MD Social History Tobacco Use [...] filedocumented in this encounter Care Teams Body Presser Relationship Specialty Start Date End Date Frances Gloria MD PCP - General Internal Medicine 12/21/18 12/21/19 Issac Wilson MD PCP - General Internal Medicine 12/22/19 03/12/20 Eusebia Ramírez PCP - General Internal Medicine 03/13/20 documented as of this encounter
--- OUTSIDE RECORDS SUMMARY | 2024-05-02 16:27 | XMS_ITS | Encounter Summary ---
Author Organization [facility] Address [address] [place] [address] Care Team Providers Care Aquatics Lifeguard Name Role Phone Frances Gloria MD Primary Care Provider Issac Reynolds MD Primary Care Provider Jeri [facility], Pcp Primary Care Provider Unavailabl e Reason for Visit * Reason Comments E-prescribe Rx Request Encounter Details Date Type Department Care Team Description 04/28/2019 Refill Podiatry - [address] [address] Lina Olmos DPM E-prescribe Rx Request Social [...] arthritis documented in this encounter Care Teams Aquatics Lifeguard Relationship Specialty Start Date End Date Frances Gloria MD PCP - General Internal Medicine 12/21/18 12/21/19 Issac Wislon MD PCP - General Internal Medicine 12/22/19 03/12/20 [facility], Pcp PCP - General Internal Medicine 03/13/20 documented as of this encounter
--- OUTSIDE RECORDS SUMMARY | 2024-05-02 16:27 | XMS_ITS | Encounter Summary ---
Author Organization [facility] Address [address] [place] [address] Care Team Providers Care Title I Teacher Name Role Phone Frances Gloria MD Primary Care Provider Issac Reynolds MD Primary Care Provider Jeri Ramírez, Pcp Primary Care Provider [facility] Encounter Details Date Type Department Care Team Description 04/20/2019 Pt. Non Urgent Medical Question Rheumatology - [address] [address] Brendon Gale MD Chest wall tenderness (Primary [...] fracture documented in this encounter Care Teams Title I Teacher Relationship Specialty Start Date End Date Frances Gloria MD PCP - General Internal Medicine 12/21/18 12/21/19 Issac Wilson MD PCP - General Internal Medicine 12/22/19 03/12/20 [facility] [place] - General Internal Medicine 03/13/20 documented as of this encounter
--- OUTSIDE RECORDS SUMMARY | 2024-05-02 16:27 | XMS_ITS | Encounter Summary ---
Author Organization [facility] Address [address] [place] [address] Care Team Providers Care Air Crew Supervisor Name Role Phone [facility], Pcp Primary Care Provider Unavailabl e Reason for Visit * Reason Onset Date Comments Faxed Refill 03/13/2020 Encounter Details Date Type Department Care Team Description 03/13/2020 Refill Adult Medicine [address] [address] Issac Wilson MD Faxed Refill Social History Tobacco Use [...] Telephone Encounter - Aniya Calzada M.A. - 03/13/2020 1:58 PM EST Spoke to patient no longer under Dr Wilson's care Please change pcp to community pcp * Telephone Encounter - Yuko Ayala - 03/13/2020 9:48 AM EST MAIL ORDER REFILL REQUEST When was the patients last visit with PCP?: 07/06/2019 When was the patients last visit in Medicine: 12/04/2019 Does the patient have a future appointment? Patient was sent a My Chart request to set up an appointment as they are due. Is the doctor here today?: NO Is the med requested on the list?:Yes What mail order pharmacy does patient have?: [facility] (participating) Let the patient know that if their pharmacy is participating we will automatically route this mail order refill to them via their mail order pharmacy. Is the following the patients current home address: [address] [place] [phone] yes If their mail order pharmacy is NOT a participating pharmacy we can:If this refill request was recieved via fax or e-prescribe the request will be faxed back to the pharmacy Is this the patients current medical insurance carrier? Payor: [employer] [facility] / Plan: PPO $20 [id number] / Product Type: PPO [id number] YES documented in this encounter Plan of Treatment Not on file documented as of this encounter Visit Diagnoses Not on filedocumented in this encounter Care Teams Air Crew Supervisor Relationship Specialty Start Date End Date [facility], Pcp PCP - General Internal Medicine 03/13/20 documented as of this encounter
--- OUTSIDE RECORDS SUMMARY | 2024-05-02 16:27 | XMS_ITS | Encounter Summary ---
Author Organization [facility] Address [address] [place] [address] Care Team Providers Care Ferryboat Operator Helper Name Role Phone Issac Wilson MD Primary Care Provider Frances Wood MD Primary Care Provider [facility] Issac Wilson MD Primary Care Provider Jeri Ramírez Pcp Primary Care Provider [facility] e Encounter Details Date Type Department Care Team Description 09/01/2016 Pt. Non Urgent Medical Question Adult Medicine [address] [address] Jose Maria Carlisle PA-C [address] [place] [id number] Social History Tobacco Use Types Packs/Day Years [...] on filedocumented in this encounter Care Teams Ferryboat Operator Helper Relationship Specialty Start Date End Date Issac Wilson MD PCP - General Internal Medicine 09/28/13 12/20/18 Frances Gloria MD PCP - General Internal Medicine 12/21/18 12/21/19 Issac Wilson MD PCP - General Internal Medicine 12/22/19 03/12/20 [facility], Pcp PCP - General Internal Medicine 03/13/20 documented as of this encounter
--- OUTSIDE RECORDS SUMMARY | 2024-05-02 16:27 | XMS_ITS | Clinical Summary ---
Author Organization [facility] Address [address] [place] [address] Care Team Providers Care Chief Nurse Name Role Phone Unavailable Primary Care Provider [...] abscesses due to MRSA. Off/on meds late 0675-0960. Enbrel stopped because of recurrent infections. Leflunomide [...] RESULTING AGENCY - 07/06/2018 4:50 PM EDT [id number] THINPREP PAP, IMAGED: NEGATIVE FOR SQUAMOUS INTRAEPITHELIAL [...]
--- OUTSIDE RECORDS SUMMARY | 2024-05-02 16:27 | XMS_ITS | Encounter Summary ---
Author Organization [facility] Address [address] [place] [address] Care Team Providers Care Staff Readiness Officer Name Role Phone Issac Wilson MD Primary Care Provider Frances Wood MD Primary Care Provider [facility] Issac Wilson MD Primary Care Provider Jeri Ramírez, Pcp Primary Care Provider Unavailjonatan e Encounter Details Date Type Department Care Team Description 07/22/2015 Refill Adult Medicine [address] [address] Issac Wilson MD Social History Tobacco Use [...] MCG tablet [Issac Wilson MD] Preferred pharmacy: [facility] [id number] [place] [address] [facility] Comment: No refills left. Please send new script for these meds. Thank you. Medication renewals requested in this message routed to other providers: methotrexate 2.5 MG tablet [Brendon Gale MD] documented in this encounter Plan of Treatment Not on file documented as of this encounter Visit Diagnoses Not on filedocumented in this encounter Care Teams Staff Readiness Officer Relationship Specialty Start Date End Date Issac Wilson MD PCP - General Internal Medicine 09/28/13 12/20/18 Frances Gloria MD PCP - General Internal Medicine 12/21/18 12/21/19 Issac Wilson MD PCP - General Internal Medicine 12/22/19 03/12/20 [facility] Pcp PCP - General Internal Medicine 03/13/20 documented as of this encounter
--- OUTSIDE RECORDS SUMMARY | 2024-05-02 16:27 | XMS_ITS | Encounter Summary ---
Author Organization [facility] Address [address] [place] [address] Care Team Providers Care Platen Press Operator Name Role Phone Issac Wilson MD Primary Care Provider Frances Wood MD Primary Care Provider Unavail able Issac Wilson MD Primary Care Provider Jeri Ramírez, Pcp Primary Care Provider Unavailabl e Encounter Details Date Type Department Care Team Description 09/15/2018 Orders Only Adult Medicine [address] [address] Issac Wilson MD Screening examination for pulmonary [...] tuberculosis documented in this encounter Care Teams Platen Press Operator Relationship Specialty Start Date End Date Issac Wilson MD PCP - General Internal Medicine 09/28/13 12/20/18 Frances Gloria MD PCP - General Internal Medicine 12/21/18 12/21/19 Issac Wilson MD PCP - General Internal Medicine 12/22/19 03/12/20 [facility] - General Internal Medicine 03/13/20 documented as of this encounter
--- OUTSIDE RECORDS SUMMARY | 2024-05-02 16:27 | XMS_ITS | Encounter Summary ---
Author Organization [facility] Address [address] [place] [address] Care Team Providers Care Generalist Name Role Phone Issac Wilson MD Primary Care Provider Frances Wood MD Primary Care Provider Unavail able Issac Wilson MD Primary Care Provider Jeri Ramírez Pcp Primary Care Provider [facility] Encounter Details Date Type Department Care Team Description 03/15/2015 Tuber Helper Report Medical Records [address] [place] [address] Justino Tracey Social History Tobacco Use Types [...] on filedocumented in this encounter Care Teams Generalist Relationship Specialty Start Date End Date Issac Wilson MD PCP - General Internal Medicine 09/28/13 12/20/18 Frances Gloria MD PCP - General Internal Medicine 12/21/18 12/21/19 Issac Wilson MD PCP - General Internal Medicine 12/22/19 03/12/20 Eusebia Ramírez PCP - General Internal Medicine 03/13/20 documented as of this encounter
--- OUTSIDE RECORDS SUMMARY | 2024-05-02 16:27 | XMS_ITS | Encounter Summary ---
Author Organization [facility] Address [address] [place] [address] Care Team Providers Care Gun Repair Clerk Name Role Phone Frances Gloria MD Primary Care Provider Issac Reynolds MD Primary Care Provider Jeri Ramírez, Pcp Primary [facility] Encounter Details Date Type Department Care Team Description 08/31/2019 Pt. Non Urgent Medical Question Adult Medicine [address] [address] [address] [address] Social History Tobacco Use Types Packs/Day Years [...] on filedocumented in this encounter Care Teams Gun Repair Clerk Relationship Specialty Start Date End Date Frances Gloria MD PCP - General Internal Medicine 12/21/18 12/21/19 Issac Wilson MD PCP - General Internal Medicine 12/22/19 03/12/20 Darrell, Eusebia PCP - General Internal Medicine 03/13/20 documented as of this encounter
--- OUTSIDE RECORDS SUMMARY | 2024-05-02 16:28 | XMS_ITS | Encounter Summary ---
Author Organization [facility] Address [address] [place] [address] Care Team Providers Care Supervisor Quality Control Name Role Phone Issac Wilson MD Primary Care Provider Frances Wood MD Primary Care Provider [facility] Issac Wilson MD Primary Care Provider Jeri Ramírez Pcp Primary [facility] Reason for Visit * Reason Onset Date Comments My Chart Appointment 11/03/2017 dizziness 11/03/2017 Headache 11/03/2017 Encounter Details Date Type Department Care Team Description 11/03/2017 Telephone Adult Medicine [address] [address] Issac Wilson MD My Chart Appointment; dizziness; [...] on filedocumented in this encounter Care Teams Supervisor Quality Control Relationship Specialty Start Date End Date Issac Wilson MD PCP - General Internal Medicine 09/28/13 12/20/18 Frances Gloria MD PCP - General Internal Medicine 12/21/18 12/21/19 Issac Wilson MD PCP - General Internal Medicine 12/22/19 [facility] 03/13/20 documented as of this encounter
--- OUTSIDE RECORDS SUMMARY | 2024-05-02 16:28 | XMS_ITS | Encounter Summary ---
Author Organization [facility] Address [address] [place] [address] Care Team Providers Care Gas Engine Repairer Name Role Phone Issac Wilson MD Primary Care Provider Frances Wood MD Primary Care Provider Unavail able Issac Wilson MD Primary Care Provider Jeri Ramírez Pcp Primary [facility] Encounter Details Date Type Department Care Team Description 01/20/2014 Hospital Medical Records [address] [place] [address] Jose Maria Tran Social History Tobacco Use [...] filedocumented in this encounter Care Teams Gas Engine Repairer Relationship Specialty Start Date End Date Issac Wilson MD PCP - General Internal Medicine 09/28/13 12/20/18 Frances Gloria MD PCP - General Internal Medicine 12/21/18 12/21/19 Issac Wilson MD PCP - General Internal Medicine 12/22/19 03/12/20 Eusebia Ramírez PCP - General Internal Medicine 03/13/20 documented as of this encounter
--- OUTSIDE RECORDS SUMMARY | 2024-05-02 16:28 | XMS_ITS | Encounter Summary ---
Author Organization [facility] Address [address] [place] [address] Care Team Providers Care Scale Assembly Set Up Worker Name Role Phone Issac Wilson MD Primary Care Provider Frances Wood MD Primary Care Provider Unavail able Issac Wilson MD Primary Care Provider Jeri Ramírez Pcp Primary Care Provider Unavailjonatan e Encounter Details Date Type Department Care Team Description 01/21/2014 [facility] Medical Records [address] [place] [id number] Social History Tobacco Use Types Packs/Day Years [...] on filedocumented in this encounter Care Teams Scale Assembly Set Up Worker Relationship Specialty Start Date End Date Issac Wilson MD PCP - General Internal Medicine 09/28/13 12/20/18 Frances Gloria MD PCP - General Internal Medicine 12/21/18 12/21/19 Issac Wilson MD PCP - General Internal Medicine 12/22/19 03/12/20 Eusebia Ramírez PCP - General Internal Medicine 03/13/20 documented as of this encounter
--- OUTSIDE RECORDS SUMMARY | 2024-05-02 16:28 | XMS_ITS | Encounter Summary ---
Author Organization [facility] Address [address] [place] [address] Care Team Providers Care Poem Writer Name Role Phone Roscoe Strickland MD Primary Care Provider Issac Barragan MD Primary Care Provider Frances Wood MD Primary Care Provider [facility] Issac Short MD Primary Care Provider Jeri Ramírez Pcp Primary Care Provider Unavailjonatan e Encounter Details Date Type Department Care Team Description 05/26/2010 [facility] Medical Records [address] [place] [id number] Quiana Cosme MD Social History Tobacco Use [...] on filedocumented in this encounter Care Teams Poem Writer Relationship Specialty Start Date End Date Roscoe [...]
--- OUTSIDE RECORDS SUMMARY | 2024-05-02 16:28 | XMS_ITS | Encounter Summary ---
Author Organization [facility] Address [address] [place] [address] Care Team Providers Care Clinical Trainer Name Role Phone Issac Wilson MD Primary Care Provider Frances Wood MD Primary Care Provider Unavail able Issac Wilson MD Primary Care Provider Jeri Ramírez Pcp Primary Care Provider [facility] Encounter Details Date Type Department Care Team Description 01/30/2014 Choir Accompanist Report Medical Records [address] [place] [address] Abstract, Provider Social History Tobacco Use Types [...] filedocumented in this encounter Care Teams Clinical Trainer Relationship Specialty Start Date End Date Issac Wilson MD PCP - General Internal Medicine 09/28/13 12/20/18 Frances Gloria MD PCP - General Internal Medicine 12/21/18 12/21/19 Issac Wilson MD PCP - General Internal Medicine 12/22/19 03/12/20 Eusebia Ramírez PCP - General Internal Medicine 03/13/20 documented as of this encounter
--- OUTSIDE RECORDS SUMMARY | 2024-05-02 16:28 | XMS_ITS | Encounter Summary ---
Author Organization [facility] Address [address] [place] [address] Care Team Providers Care Sharepoint Designer Developer Name Role Phone Issac Wilson MD Primary Care Provider Frances Wood MD Primary Care Provider [facility] Issac Wilson MD Primary Care Provider Jeri Ramírez Pcp Primary Care Provider [facility] Encounter Details Date Type Department Care Team Description 09/02/2016 Pt. Non Urgent Medical Question Adult Medicine [address] [address] Jose Maria Carlisle PA-C [address] [place] [address] Social History Tobacco Use Types Packs/Day Years [...] on filedocumented in this encounter Care Teams Sharepoint Designer Developer Relationship Specialty Start Date End Date Issac Wilson MD PCP - General Internal Medicine 09/28/13 12/20/18 Frances Gloria MD PCP - General Internal Medicine 12/21/18 12/21/19 Issac Wilson MD PCP - General Internal Medicine 12/22/19 03/12/20 [facility], Pcp PCP - General Internal Medicine 03/13/20 documented as of this encounter
--- OUTSIDE RECORDS SUMMARY | 2024-05-02 16:28 | XMS_ITS | Encounter Summary ---
Author Organization [facility] Address [address] [place] [address] Care Team Providers Care Endodontist Name Role Phone Roscoe Strickland MD Primary Care Provider Issac Barragan MD Primary Care Provider Frances Wood MD Primary Care Provider Issac Reynolds MD Primary Care Provider Jeri Ramírez, Pcp Primary Care Provider [facility] Reason for Visit * Reason Onset Date Comments VNA Call 01/25/2013 Encounter Details Date Type Department Care Team Description 01/25/2013 Telephone Adult Medicine [address] [address] Roscoe Strickland MD VNA Call Social History [...] encounter Miscellaneous Notes * Telephone Encounter - hTu Borrego M.A. - 01/26/2013 2:02 PM EST [facility] nu-guaze daily as [...] Carbajal - 01/26/2013 10:36 AM EST [phone] Lyndsay calling , states she is still [...] PM EST Lyndsay Perdomo calling back from [facility], please call her at [phone], thanks. * Telephone Encounter - Jazmin Ku R.N. - 01/25/2013 1:04 PM EST Need verbal order to use calcium alginate with silver for wound dressing * Telephone Encounter - Mer Cruz - 01/25/2013 12:13 PM EST VNA CALL Which A office is calling? [facility] Full name of caller: Solange Is the [...] on filedocumented in this encounter Care Teams Endodontist Relationship Specialty Start Date End Date Roscoe Strickland MD PCP - General 02/15/07 09/27/13 Issac Wilson MD PCP - General Internal Medicine 09/28/13 12/20/18 Frances Gloria MD PCP - General Internal Medicine 12/21/18 12/21/19 Issac Wilson MD PCP - General Internal Medicine 12/22/19 03/12/20 [facility], Pcp PCP - General Internal Medicine 03/13/20 documented as of this encounter
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
--- OUTSIDE RECORDS SUMMARY | 2024-05-02 16:28 | XMS_ITS | Encounter Summary ---
Author Organization [facility] Address [address] [place] [address] Care Team Providers Care Fast Food Worker Name Role Phone Issac Wilson MD Primary Care Provider Frances Wood MD Primary Care Provider Unavail able Issac Wilson MD Primary Care Provider Jeri Ramírez Pcp Primary Care Provider [facility] Encounter Details Date Type Department Care Team Description 03/31/2018 [facility] Medical Records [address] [place] [address] Senthil Reyes MD Social History Tobacco Use [...] on filedocumented in this encounter Care Teams Fast Food Worker Relationship Specialty Start Date End Date Issac Wilson MD PCP - General Internal Medicine 09/28/13 12/20/18 Frances Gloria MD PCP - General Internal Medicine 12/21/18 12/21/19 Issac Wilson MD PCP - General Internal Medicine 12/22/19 03/12/20 Eusebia Ramírez PCP - General Internal Medicine 03/13/20 documented as of this encounter
--- OUTSIDE RECORDS SUMMARY | 2024-05-02 16:28 | XMS_ITS | Encounter Summary ---
Author Organization [facility] Address [address] [place] [address] Care Team Providers Care Professional Bondsman Name Role Phone Issac Wilson MD Primary Care Provider Frances Wood MD Primary Care Provider Unavail able Issac Wilson MD Primary Care Provider Jeri Ramírez Pcp Primary Care Provider Unavailjonatan e Encounter Details Date Type Department Care Team Description 08/13/2016 Pt. Non Urgent Medical Question Rheumatology - [address] [address] Brendon Gale MD Social History Tobacco Use [...] on filedocumented in this encounter Care Teams Professional Bondsman Relationship Specialty Start Date End Date Issac Wilson MD PCP - General Internal Medicine 09/28/13 12/20/18 Frances Gloria MD PCP - General Internal Medicine 12/21/18 12/21/19 Issac Wilson MD PCP - General Internal Medicine 12/22/19 03/12/20 Eusebia Ramírez PCP - General Internal Medicine 03/13/20 documented as of this encounter
--- OUTSIDE RECORDS SUMMARY | 2024-05-02 16:28 | XMS_ITS | Encounter Summary ---
Author Organization [facility] Address [address] [place] [address] Care Team Providers Care Sales Agent Food Vending Service Name Role Phone Roscoe Strickland MD Primary Care Provider Issac Barragan MD Primary Care Provider Frances Wood MD Primary Care Provider Issac Reynolds MD Primary Care Provider Jeri Ramírez Pcp Primary Care Provider Miryam sherman Encounter Details Date Type Department Care Team Description 05/20/2011 [facility] Medical Records [address] [place] [address] Jose Maria Bonilla MD Social History Tobacco [...] filedocumented in this encounter Care Teams Sales Agent Food Vending Service Relationship Specialty Start Date End Date Roscoe [...]
--- OUTSIDE RECORDS SUMMARY | 2024-05-02 16:28 | XMS_ITS | Encounter Summary ---
Author Organization [facility] Address [address] [place] [address] Care Team Providers Care Solar Panel Installation Supervisor Name Role Phone Issac Wilson MD Primary Care Provider Frances Wood MD Primary Care Provider [facility] Issac Wilson MD Primary Care Provider Jeri Ramírez, Pcp Primary Care Provider [facility] Encounter Details Date Type Department Care Team Description 09/23/2016 Refill Adult Medicine [address] [address] Issac Wilson MD Social History Tobacco Use [...] hr tablet [Issac Wilson MD] Preferred pharmacy: [id number] - [place], [place] - [address] AT Comment: need new prescription documented in this encounter Plan of Treatment Not on file documented as of this encounter Visit Diagnoses Not on filedocumented in this encounter Care Teams Solar Panel Installation Supervisor Relationship Specialty Start Date End Date Issac Wilson MD PCP - General Internal Medicine 09/28/13 12/20/18 Frances Gloria MD PCP - General Internal Medicine 12/21/18 12/21/19 Issac Wilson MD PCP - General Internal Medicine 12/22/19 03/12/20 [facility] Pcp PCP - General Internal Medicine 03/13/20 documented as of this encounter
--- OUTSIDE RECORDS SUMMARY | 2024-05-02 16:28 | XMS_ITS | Encounter Summary ---
Author Organization [facility] Address [address] [place] [address] Care Team Providers Care Asset Liability Analyst Name Role Phone Roscoe Strickland MD Primary Care Provider Issac Barragan MD Primary Care Provider Frances Wood MD Primary Care Provider Issac Reynolds MD Primary Care Provider Jeri Ramírez Pcp Primary Care Provider Miryam sherman Encounter Details Date Type Department Care Team Description 09/01/2012 Release of Information Medical Records [address] [place] [address] Abstract, Provider Social History Tobacco Use Types [...] on filedocumented in this encounter Care Teams Asset Liability Analyst Relationship Specialty Start Date End Date Roscoe [...]
--- OUTSIDE RECORDS SUMMARY | 2024-05-02 16:28 | XMS_ITS | Encounter Summary ---
Author Organization [facility] Address [address] [place] [address] Care Team Providers Care Dean Of Admissions Name Role Phone Roscoe Strickland MD Primary Care Provider Issac Barragan MD Primary Care Provider Frances Wood MD Primary Care Provider [facility] Issac Short MD Primary Care Provider Jeri Ramírez Pcp Primary Care Provider Miryam sherman Encounter Details Date Type Department Care Team Description 07/26/2012 Transfer Records Medical Records [address] [place] [address] Abstract, Provider Social History Tobacco Use Types [...] on filedocumented in this encounter Care Teams Dean Of Admissions Relationship Specialty Start Date End Date Roscoe [...]
--- OUTSIDE RECORDS SUMMARY | 2024-05-02 16:28 | XMS_ITS | Encounter Summary ---
Author Organization [facility] Address [address] [place] [address] Care Team Providers Care Ampoule Filler Name Role Phone Roscoe Strickland MD Primary Care Provider Issac Barragan MD Primary Care Provider Frances Wood MD Primary Care Provider Issac Reynolds MD Primary Care Provider Jeri Ramírez Pcp Primary Care Provider Unavailjonatan sherman Encounter Details Date Type Department Care Team Description 05/27/2013 [facility] Medical Records [address] [place] [address] Nahun Perdue PA-C Social History Tobacco Use [...] on filedocumented in this encounter Care Teams Ampoule Filler Relationship Specialty Start Date End Date Roscoe [...]
--- OUTSIDE RECORDS SUMMARY | 2024-05-02 16:28 | XMS_ITS | Encounter Summary ---
Author Organization [facility] Address [address] [place] [address] Care Team Providers Care Addiction Specialist Name Role Phone Frances Gloria MD Primary Care Provider [facility] Issac Short MD Primary Care Provider Jeri Ramírez, Pcp Primary Care Provider [facility] Encounter Details Date Type Department Care Team Description 02/20/2019 Sales And Training Specialist Report Medical Records [address] [place] [address] Kushal Ferrer Social History Tobacco Use Types [...] on filedocumented in this encounter Care Teams Addiction Specialist Relationship Specialty Start Date End Date Frances Gloria MD PCP - General Internal Medicine 12/21/18 12/21/19 Issac Wilson MD PCP - General Internal Medicine 12/22/19 03/12/20 Eusebia Ramírez PCP - General Internal Medicine 03/13/20 documented as of this encounter
--- OUTSIDE RECORDS SUMMARY | 2024-05-02 16:28 | XMS_ITS | Encounter Summary ---
Author Organization [facility] Address [address] [place] [address] Care Team Providers Care Sample Supervisor Name Role Phone Issac Wilson MD Primary Care Provider Frances Wood MD Primary Care Provider [facility] Issac Wilson MD Primary Care Provider Jeri Ramírez, Pcp Primary Care Provider Unavailabl e Reason for Visit * Reason Comments E-prescribe Rx Request Encounter Details Date Type Department Care Team Description 05/26/2016 Refill Adult Medicine [address] [address] Issac Wilson MD E-prescribe Rx Request Social History Tobacco [...] encounter Miscellaneous Notes * Telephone Encounter - Mary Almaraz M.A. - 05/26/2016 10:31 AM EDT Component Value Date CHOL 224 11/18/2015 LDL 108 11/18/2015 HDL 69 11/18/2015 TRIG 236 11/18/2015 SGOT 37 05/06/2016 SGPT 67 05/06/2016 * Telephone Encounter - Monse Zambrano - 05/26/2016 9:49 AM EDT Patient would like script to be: E-PRESCRIBED/FAXED TO PHARMACY WHEN WAS THE PATIENT'S LAST APPOINTMENT IN ADULT MEDICINE? 05/25/16 WHEN WAS THE LAST TIME THE PATIENT SAW THEIR PCP? 05/01/16 Does patient have an upcoming appointment? Yes 09/24/16 (THE MEDICATION REQUESTED IS ON THE MED LIST ABOVE) All of the medications requested were on the CURRENT MEDS list Did you check the Pharmacy information above?: YES Patient wants: 30 -day supply Is this a mail order prescription request ? NO Patients current insurance carrier is: Payor: [employer] / Plan: EPO $15 [facility] [id number] / Product Type: PPO [id number] documented in this encounter Plan of Treatment Not on file documented as of this encounter Visit Diagnoses Not on filedocumented in this encounter Care Teams Sample Supervisor Relationship Specialty Start Date End Date Issac Wilson MD PCP - General Internal Medicine 09/28/13 12/20/18 Frances Gloria MD PCP - General Internal Medicine 12/21/18 12/21/19 Issac Wilson MD PCP - General Internal Medicine 12/22/19 03/12/20 Eusebia Ramírez PCP - General Internal Medicine 03/13/20 documented as of this encounter
--- OUTSIDE RECORDS SUMMARY | 2024-05-02 16:28 | XMS_ITS | Encounter Summary ---
Author Organization [facility] Address [address] [place] [address] Care Team Providers Care Pickle Cutter Name Role Phone Issac Wilson MD Primary Care Provider Frances Wood MD Primary Care Provider Issac Reynolds MD Primary Care Provider Jeri Ramírez, Pcp Primary Care Provider Unavailabl e Reason for Visit * Reason Onset Date Comments APPOINTMENT 05/07/2016 Encounter Details Date Type Department Care Team Description 05/07/2016 Telephone Radiology - [address] [address] Jose Maria Carlisle PA-C [address] [place] [address] APPOINTMENT Social History Tobacco Use Types Packs/Day Years [...] encounter Miscellaneous Notes * Telephone Encounter - Jose Maria Carlisle PA-C - 05/07/2016 11:01 AM EDT Yes please remove my order. Jose Maria Carlisle PA-C * Telephone Encounter - Danae Guthrie - 05/07/2016 9:51 AM EDT There are two orders for chest ct for this pt. Is it ok to remove the order from gregory jamesanayeligabriela, because dr. davida savage also put an order in, pt is following up with dr. higuera in July 2016. Please advise thank you documented in this encounter Plan of Treatment Not on file documented as of this encounter Visit Diagnoses Not on filedocumented in this encounter Care Teams Pickle Cutter Relationship Specialty Start Date End Date Issac Wilson MD PCP - General Internal Medicine 09/28/13 12/20/18 Frances Gloria MD PCP - General Internal Medicine 12/21/18 12/21/19 Issac Wilson MD PCP - General Internal Medicine 12/22/19 03/12/20 [facility], Pcp PCP - General Internal Medicine 03/13/20 documented as of this encounter
--- OUTSIDE RECORDS SUMMARY | 2024-05-02 16:28 | XMS_ITS | Encounter Summary ---
Author Organization [facility] Address [address] [place] [address] Care Team Providers Care Burglar Alarm Assembler Name Role Phone Roscoe Strickland MD Primary Care Provider Issac Barragan MD Primary Care Provider Frances Wood MD Primary Care Provider [facility] Issac Short MD Primary Care Provider Jeri Ramírez, Pcp Primary Care Provider Unavailjonatan sherman Encounter Details Date Type Department Care Team Description 02/23/2011 Kettle Coordinator Report Medical Records [address] [place] [address] Riccardo Hernandez MD, MD Social History Tobacco [...] on filedocumented in this encounter Care Teams Burglar Alarm Assembler Relationship Specialty Start Date End Date Roscoe [...]
--- OUTSIDE RECORDS SUMMARY | 2024-05-02 16:28 | XMS_ITS | Encounter Summary ---
Author Organization [facility] Address [address] [place] [address] Care Team Providers Care Escrow Agent Name Role Phone Roscoe Strickland MD Primary Care Provider Issac Barragan MD Primary Care Provider Frances Wood MD Primary Care Provider [facility] Issac Short MD Primary Care Provider Jeri Ramírez Pcp Primary Care Provider Unavailjonatan sherman Encounter Details Date Type Department Care Team Description 02/17/2013 Foreclosure Field Inspector Report Medical Records [address] [place] [address] Rc Razo MD Social History Tobacco Use [...] on filedocumented in this encounter Care Teams Escrow Agent Relationship Specialty Start Date End Date Roscoe [...]
--- OUTSIDE RECORDS SUMMARY | 2024-05-02 16:28 | XMS_ITS | Encounter Summary ---
Author Organization [facility] Address [address] [place] [address] Care Team Providers Care Paper Cup Machine Tender Name Role Phone Issac Wilson MD Primary Care Provider Frances Wood MD Primary Care Provider Unavail able Issac Wilson MD Primary Care Provider Jeri Ramírez Pcp Primary Care Provider [facility] Encounter Details Date Type Department Care Team Description 04/16/2016 Hospital Medical Records [address] [place] [address] Santhosh Rios MD Social History Tobacco Use [...] on filedocumented in this encounter Care Teams Paper Cup Machine Tender Relationship Specialty Start Date End Date Issac Wilson MD PCP - General Internal Medicine 09/28/13 12/20/18 Frances Gloria MD PCP - General Internal Medicine 12/21/18 12/21/19 Issac Wilson MD PCP - General Internal Medicine 12/22/19 03/12/20 Eusebia Ramírez PCP - General Internal Medicine 03/13/20 documented as of this encounter
--- OUTSIDE RECORDS SUMMARY | 2024-05-02 16:28 | XMS_ITS | Encounter Summary ---
Author Organization [facility] Address [address] [place] [address] Care Team Providers Care Professor Of Early Childhood Education Name Role Phone Issac Wilson MD Primary Care Provider Frances Wood MD Primary Care Provider Unavail able Issac Wilson MD Primary Care Provider Jeri Ramírez Pcp Primary Care [facility] Encounter Details Date Type Department Care Team Description 04/15/2016 Hospital Medical Records [address] [place] [address] Brendon Redmond MD Social History Tobacco Use [...] on filedocumented in this encounter Care Teams Professor Of Early Childhood Education Relationship Specialty Start Date End Date Issac Wilson MD PCP - General Internal Medicine 09/28/13 12/20/18 Frances Gloria MD PCP - General Internal Medicine 12/21/18 12/21/19 Issac Wilson MD PCP - General Internal Medicine 12/22/19 03/12/20 Eusebia Ramírez PCP - General Internal Medicine 03/13/20 documented as of this encounter
== END 2024-05-02 14:34 | disposition home or self-care (01) ==
LOC: HO.HGS 13:53
PROVIDERS: PCP Internal Medicine; Visit Provider Surgery
DX: R91.1 Solitary pulmonary nodule (principal)
CPT/HCPCS: 99214

== ENCOUNTER → 2024-05-02 13:52 | Outpatient (BNVA) | payer BC, SELFPAY | PROVIDERS: PCP Internal Medicine; Visit Provider Surgery ==

== ENCOUNTER 2024-06-09 06:23 | Outpatient (REF) | payer BC, SELFPAY ==
[2024-06-09 06:42] LABS: MANUAL DIFF FLAG NO
[2024-06-09 07:18] LABS: Basophils Absolute Auto 0.1 X10*3/uL (0.0-0.2); Basophils Percent Auto 0.8 % (0-2); Eosinophils Absolute Auto 0.1 X10*3/uL (0.0-0.4); Eosinophils Percent Auto 1.7 % (0-4); Hemoglobin 13.4 g/dl (12.0-16.0); Imm Gran Abs Auto 0.03 X10*3/uL (0.00-0.03); Imm Gran Pct Auto 0.5 % (0.0-0.4); Lymphocytes Absolute Auto 1.3 X10*3/uL (1.2-4.9); Lymphocytes Percent Auto 22.5 % (20-40); Mean Corpuscular HGB Conc 33.5 g/dl (31.0-35.0); Mean Corpuscular Volume 95.5 fL (80.0-98.0); Mean Platelet Volume 9.8 fL (9.4-12.3); Monocytes Absolute Auto 0.5 X10*3/uL (0.1-1.2); Neutrophils Absolute Auto 3.9 x10*3/uL (2.0-8.3); Neutrophils Percent Auto 65.5 % (45-73); Platelet Count 367 X10*3/uL (160-400); Red Blood Count 4.19 X10*6/uL (4.20-5.50); Red Cell Distribution Width 13.1 % (11.0-16.0); White Blood Count 5.9 X10*3/uL (4.8-10.8)
[2024-06-09 07:52] LABS: Alanine Aminotransferase 56 U/L (0-31); Albumin Level 4.3 g/dL (3.5-5.0); Alkaline Phosphatase 88 U/L (39-117); Anion Gap 11 (12-20); Aspartate Amino Transferase 43 U/L (5-31); Bilirubin Total 0.4 mg/dL (0.0-1.0); Blood Urea Nitrogen 12 mg/dL (9-16); Calcium 9.8 mg/dL (8.4-10.2); Carbon Dioxide 27 mmol/L (22-29); Chloride 106 mmol/L (96-108); Estimated Glomerular Filt Rate > 60; Glucose Random 112 mg/dL (60-115); Potassium 4.1 mmol/L (3.3-5.1); Sodium 140 mmol/L (135-145); Total Protein 7.5 g/dL (6.5-8.0)
[2024-06-09 08:10] LABS: Free T4 (Free Thyroxine) 0.77 ng/dL (0.71-1.85); Thyroid Stimulating Hormone 1.56 uIU/mL (0.32-4.0)
== END 2024-06-09 06:24 | disposition home or self-care (01) ==
LOC: HO.LAB 06:23
PROVIDERS: PCP Internal Medicine; Visit Provider Internal Medicine
DX: E03.9 Hypothyroidism, unspecified (principal)
CPT/HCPCS: 36415; 80053; 84439; 84443; 85025

== ENCOUNTER 2024-06-16 11:19 | Outpatient (REF) | payer BC, SELFPAY ==
--- OUTSIDE RECORDS SUMMARY | 2024-06-16 12:19 | XMS_ITS | Clinical Summary ---
Author Organization [facility] Address [address] [place] [address] Care Team Providers Care Plant Sciences Professor Name Role Phone Unavailable Primary Care Provider Unavailabl e Surgical History Surgery Date Site/Laterality Comments TUBAL LIGATION PROCEDURE: HISTORICAL TUBAL LIGATION HERNIA REPAIR Bilateral PROCEDURE: HISTORICAL HERNIA REPAIR/ING; COMMENT: around age 8 y/o BLADDER SUSPENSION 2010 PROCEDURE: HISTORICAL BLADDER SUSPENSION; COMMENT: Dr. Maldonado, bladder sling EYE SURGERY PROCEDURE: FL TRABECULOPLASTY BY LASER SURGERY; COMMENT: right lasik on right OTHER SURGICAL HISTORY PROCEDURE: FL REPOSITIONING IO LENS PROSTHESIS REQ INC SPX; COMMENT: left eye FOOT SURGERY PROCEDURE: HISTORICAL FOOT SURGERY; COMMENT: plantar fascia repair bilateral OTHER SURGICAL HISTORY PROCEDURE: FL SUTURE NERVE REQ XTNSV MOBIL/TRPOS NERVE; COMMENT: left ulnar nerve UPPER GASTROINTESTINAL ENDOSCOPY 02/23/2012 PROCEDURE: FL UPPER GI ENDOSCOPY PERFORMED COLONOSCOPY 03/12/2009 PROCEDURE: [...] Left forearm 01/2014 Seropositive rheumatoid arth ritis (CMS/HCC V24, CMS/HCC V28) DX:Seropositive rheumatoid arthritis (HCC); COMMENT: Onset - 2003, RF positive. Treated with methotrexate and Remicade (failing response), changed to Humira -2005 and combination helpful. 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 Off/on meds late 0766-2824. Enbrel stopped because of recurrent infections. Leflunomide [...] Health Screening 01/18/2022 Breast Cancer Screening 02/20/2022 02/20/19, 06/14/2018, 06/08/2017, Additional history exists RSV Immunization Adult Patients (1 - Risk 60-74 years 1-dose series) 2024 Influenza Vaccine (Season Ended) 2024 10/24/2019, 11/15/2018, 12/16/2017, Additional history exists DTaP,Tdap,and Td Vaccines (3 - Td or [...] age to complete this topic Meningococcal B Vaccine Aged Out No l onger eligible based on patient's age to complete [...] RESULTING AGENCY - 07/06/2018 4:50 PM EDT [id number] THINPREP PAP, IMAGED: NEGATIVE FOR SQUAMOUS INTRAEPITHELIAL [...]
[2024-06-16 12:46] LABS: Cortisol Random 7.2 ug/dL
== END 2024-06-16 11:20 | disposition home or self-care (01) ==
LOC: HO.LAB 11:19
PROVIDERS: PCP Internal Medicine; Visit Provider Internal Medicine
DX: E66.9 Obesity, unspecified (principal)
CPT/HCPCS: 36415; 82533

== ENCOUNTER 2024-07-18 09:57 | Outpatient (AMB) | payer BC, SELFPAY ==
--- NOTE | 2024-07-18 09:59 | A.OFFVIS_ITS ---
Vital Signs 07/18/24 10:06 Height 5 ft 5.5 in Weight 199 lb BMI 32.6 BP 112/80 Blood Pressure Location Lt brachial Position Sitting Pulse 82 Pulse Source Pulse Oximeter Pulse Oximetry (%) 92 Oxygen Delivery Method Room Air Intake Visit Reasons: Possible RA flare up. Joints in ankles, knees, wri Intake Note: Patient presents for RA follow up. Patient c/o RT knee pain. Allergies etanercept [From ENBREL] Allergy (Intermediate, Verified 07/18/24 10:04) RASH tofacitinib [From Xeljanz] Adverse Reaction (Intermediate, Verified 07/18/24 10:04) high LFT Medication List - Last Reconciled 07/18/24 by Michelel Owen MD albuterol sulfate 2.5 mg (3 mL) inhalation Q4H PRN 30 days ascorbic acid (vitamin C) ER (Vitamin C ER) 1,000 mg PO calcium citrate 650 mg PO DAILY cholecalciferol (vitamin D3) 50 mcg PO DAILY citalopram 20 mg PO DAILY 90 days cranberry extract 1 PO estradiol 0.01%(0.1mg/gram) pea-sized to urethra 2 times a week; 30 days inhalational spacing device (Aerovent Plus spacer) As directed levothyroxine 50 mcg PO DAILY nebulizers (AeroEclipse II Nebulizer) As directed pantoprazole 40 mg PO DAILY Rinvoq ER (upadacitinib) 15 mg PO DAILY 90 days NS rosuvastatin 5 mg PO DAILY HPI Comments Details: Patient is a 68-year-old female with asthma, hypothyroidism, hyperlipidemia and seropositive nonerosive rheumatoid arthritis. Here today for an urgent visit for a flare of her disease Interval History: Patient last seen 04/21/2024 with me. At that time her RA was in remission on Rinvoq monotherapy. She was complaining of left sided posterior rib pain of unknown etiology Today, Patient is recovering from a flare that started 1 week ago She started getting a head cold then noticed all the joints in her body were aching Particularly her right knee: the lateral part of her right knee. No trauma. But has been playing pickle ball. About 3-4 days ago couldn't even walk on the right knee. Used topical penetrex with some relief Her flare is resolving Rheumatologic History: Onset ~ 2003, RF positive. Treated with methotrexate and Remicade (failing response), changed to Humira ~2005 and combination helpful. 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 Off/on meds late [id number]. Enbrel stopped because of recurrent infections. Leflunomide caused skin rash, summer 2013. Orencia started 2013; methotrexate added 12/29 but stopped due to LFT elevations Xeljanz in place of Orencia Feb 2015 - helpful but further LFT elevations 02/03. Rinvoq in place of Xeljanz 01/2020 Decreased Rinvoq to 5 days a week in the setting of elevated liver enzymes Current Rheumatology Medication(s): Rinvoq 15mg 5 days a week PFSH Medical History UTI (urinary tract infection) Osteopenia Pneumonia Elevated transaminase level Long-term use of immunosuppressant medication COVID-19 vaccine administered Hidradenitis suppurativa of left axilla Urge incontinence Hypercholesterolemia MRSA infection GERD (gastroesophageal reflux disease) Rheumatoid arthritis Hypothyroid Surgical History TMJ (sprain of temporomandibular joint) History of esophagogastroduodenoscopy (EGD) Hx of colonoscopy History of eye surgery Ulnar neuropathy at elbow of left upper extremity Plantar fasciitis, bilateral H/O tubal ligation Hx of tonsillectomy Inguinal hernia Family History Mother Myocardial infarct Father Lung cancer Paternal Uncle Bladder cancer Paternal Aunt Stomach cancer Maternal Uncle Myocardial infarct Social History Housing: House Are you a primary managed care director to a significant other at home: No Do you presently have visiting nurse or other home services: No Alcohol intake: current Alcohol intake frequency: a few times a month Alcohol type: wine and hard liquor Comment: 3-4 x a month glass of wine Patient Tobacco Use Status: Never used Tobacco e-Cigarette/Vaping Use: Never Used Second Hand Smoke Exposure: No Advance Directives Date on File: 09/17/20 service: No Current occupational status: employed 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 Cognitive needs: No Hearing needs: No Vision needs: Yes Review of Systems Const Details: Review of Systems Constitutional: Denies fever, chills, weight loss ENT: Denies vision changes, eye pain or eye redness, dental caries, dry mouth GI: Denies nausea, vomiting, diarrhea, abdominal pain, change in BM Pulm: Denies SOB, VERAS, hemoptysis, wheezing Cards: Denies chest pain, palpitations Skin: Denies Raynaud's, rash, nail changes, photosensitivity, DEBT RECOVERY OFFICER: Denies headaches, weakness, paresthesias, recurrent falls MSK: as per HPI All other systems reviewed and are unremarkable except noted above Physical Exam Vital Signs: Last Vital Signs Pulse 82 07/18/24 10:06 BP 112/80 07/18/24 10:06 Pulse Ox 92 07/18/24 10:06 Oxygen Delivery Method Room Air 07/18/24 10:06 BMI result Body Mass Index 32.6 Vital signs reviewed Physical Examination CONSTITUITIONAL Patient alert and cooperative. Well appearing and in no apparent painful distress HEENT Conjunctiva and sclera clear. ?Pupils equal round and reactive to light. ?No lymphadenopathy. ? CHEST/RESPIRATORY SYSTEM Normal respiratory effort and able to speak in complete sentences. ?Clear to auscultation bilaterally. ?No crackles, rales, rhonchi. Scattered exp wheezes heard CARDIAC SYSTEM Regular rate and rhythm. ?S1 and S2 heard no murmurs. ?Radial pulses intact bilaterally MSK Hands: ?Good c s s representative strength bilaterally. No deformities noted. ?No synovitis noted to the MCPs, PIPs or DIPs. ?No tenderness to palpation of these joints. Heberden's nodes noted Wrists: ?Full range of motion at the wrists without pain. ?No tenderness to palpation or synovitis noted to the wrists. Elbows: Full range of motion without pain. No tenderness, weakness, swelling, increased warmth or erythema. Shoulders: Full range of motion without pain. No tenderness, weakness, swelling, increased warmth or erythema. Hips: Full range of motion without pain. Hip bursa: No tenderness to palpation Knees: ?Full range of motion. ?No tenderness, swelling, increased warmth or erythema.?No effusion or crepitations Ankles: Full range of motion. ?No tenderness, swelling, increased warmth or erythema.? Feet: ?Negative squeeze test. ?No tenderness to palpation or swelling of the MTPs. Tender points:?No tenderness to palpation of the bilateral trapezius, supraspinatus, greater trochanters, anterior costochondral junctions, bilateral gluteal areas, bilateral suboccipital muscle insertions SKIN Skin intact without rashes. Results Reviewed Results Reviewed: Laboratory Tests 12/03/23 04/18/24 13:50 11:36 WBC 5.8 RBC 4.10 L Hgb 13.1 Hct 39.4 Plt Count 331 ESR 10 Sodium 143 Potassium 4.6 Chloride 109 H Carbon Dioxide 28 BUN 11 Creatinine 0.72 AST 35 H 41 H ALT 46 H 45 H Alkaline Phosphatase 70 C-Reactive Protein < 0.10 Total Protein 7.8 Albumin 4.2 Assessment & Plan Assessment & Plan (1) Rheumatoid arthritis: Comment: Onset ~ 2003, RF positive. Treated with methotrexate and Remicade (failing response), changed to Humira ~2005 and combination helpful. 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 Off/on meds late [id number]. Enbrel stopped because of recurrent infections. Leflunomide caused skin rash, summer 2013. Orencia started 2013; methotrexate added 12/29 but stopped due to LFT elevations Xeljanz in place of Orencia Feb 2015 - helpful but further LFT elevations 02/03. Rinvoq in place of Xeljanz 01/2020 - doses at 15 mg 5 days a week Code(s): M06.9 - Rheumatoid arthritis, unspecified Category: Medical Qualifiers: Rheumatoid arthritis location: multiple sites Rheumatoid factor presence: without rheumatoid factor Qualified Code(s): M06.09 - Rheumatoid arthritis without rheumatoid factor, multiple sites Plan: #Seropositive RA Patient is a 59 y.o. female with seropositive RA here today for urgent visit for a flare of her disease. Exam with no active synovitis today. Her flare was likely on a background of her viral illness. Recommend that she follow up with her relay repairer as she does have some wheezing on exam and she may need a short course of steroids for that. With respect to her nail pain she may have a meniscal injury. We will check x- rays and send to physical therapy if no improvement we will get an MRI Plan - Continue Rinvoq 15mg daily - XR bilateral knees - Topical diclofenac 1% for knees - PT - RTC for August appt - Labs before visit: CBC, CMP, ESR, CRP, hepatitis panel, T spot (2) Long-term use of immunosuppressant medication: Code(s): Z79.899 - Other jig grinder (current) drug therapy Category: Medical Plan: #Long-term Use of DAVID inhibitor (Rinvoq) Discussed with patient the benefits and risks of DAVID inhibitors for the management of the rheumatic condition Benefits include reduce pain, maintenance of remission and reduction of flares Risks include thromboembolic events, skin cancer and nonmelanoma skin cancers, other forms of cancer, cardiovascular alcohol and mortality Advise patient that they are to hold the medication and for up to 1 week after a febrile illness or an open skin wound (3) Elevated transaminase level: Comment: likely due to fatty liver; 2021 CT scan of the abdomen showed fatty liver. No focal lesions. Code(s): R74.01 - Elevation of levels of liver transaminase levels Category: Medical Plan: #Elevated AST/ALT Labs stable. (4) Osteopenia: Comment: DEXA 05/03/20. Spine -1.3, Left femur neck -0.5, left femur total -0.2 DEXA 04/14/24. AP Spine -1.9, Left femur neck -0.8, left femur total -0.3 Code(s): M85.80 - Other specified disorders of bone density and structure, unspecified site Category: Medical Qualifiers: Osteopenia location: spine Qualified Code(s): M85.88 - Other specified disorders of bone density and structure, other site Plan: #Spine Osteopenia Discussed lifestyle changes including weight-bearing exercises to help with improvement in her spinal bone density. Plan I spent 25 minutes reviewing the record and labs, seeing the patient, discussing the treatment plan and documenting in the medical record ? Orders: Orders XR knee RT 3V Today M25.561 - Pain in right knee, M25.562 - Pain in left knee XR knee LT 3V Today M25.561 - Pain in right knee, M25.562 - Pain in left knee PT Evaluation and Treatment Today M25.561 - Pain in right knee, M25.562 - Pain in left knee Coding Level of Care Code Est Pt Level 3 (24611) Diagnoses Rheumatoid arthritis of multiple sites with negative rheumatoid factor M06.09 Rheumatoid arthritis location: multiple sites Rheumatoid factor presence: without rheumatoid factor Long-term use of immunosuppressant medication Z79.899 Elevated transaminase level R74.01 Osteopenia of spine M85.88 Osteopenia location: spine
[2024-07-18 10:06] VITALS: BP 112/80; PULSE 82; O2SAT 92; BMI 32.6
--- OUTSIDE RECORDS SUMMARY | 2024-07-18 11:21 | XMS_ITS | Clinical Summary ---
Author Organization [facility] Address [address] [place] [address] Care Team Providers Care Projection Printer Name Role Phone Unavailable Primary Care Provider Unavailabl e Surgical History Surgery Date Site/Laterality Comments TUBAL LIGATION PROCEDURE: HISTORICAL TUBAL LIGATION HERNIA REPAIR Bilateral PROCEDURE: HISTORICAL HERNIA REPAIR/ING; COMMENT: around age 8 y/o BLADDER SUSPENSION 2010 PROCEDURE: HISTORICAL BLADDER SUSPENSION; COMMENT: Dr. Maldonado, bladder sling EYE SURGERY PROCEDURE: NM TRABECULOPLASTY BY LASER SURGERY; COMMENT: right lasik on right OTHER SURGICAL HISTORY PROCEDURE: NM REPOSITIONING IO LENS PROSTHESIS REQ INC SPX; COMMENT: left eye FOOT SURGERY PROCEDURE: HISTORICAL FOOT SURGERY; COMMENT: plantar fascia repair bilateral OTHER SURGICAL HISTORY PROCEDURE: NM SUTURE NERVE REQ XTNSV MOBIL/TRPOS NERVE; COMMENT: left ulnar nerve UPPER GASTROINTESTINAL ENDOSCOPY 02/23/2012 PROCEDURE: NM UPPER GI ENDOSCOPY PERFORMED COLONOSCOPY 03/12/2009 PROCEDURE: [...] abscesses due to MRSA. Off/on meds late [id number]. Enbrel stopped because of recurrent infections. Leflunomide [...] RESULTING AGENCY - 07/06/2018 4:50 PM EDT [id number] THINPREP PAP, IMAGED: NEGATIVE FOR SQUAMOUS INTRAEPITHELIAL [...]
== END 2024-07-18 10:30 | disposition home or self-care (01) ==
LOC: HO.RHE 09:57
PROVIDERS: PCP Internal Medicine; Visit Provider Student in an Organized Health Care Education/Training Program
DX: M06.09 Rheumatoid arthritis without rheumatoid factor, multiple sites (principal); Z79.899 Other long term (current) drug therapy; R74.01 Elevation of levels of liver transaminase levels; M85.88 Other specified disorders of bone density and structure, other site
CPT/HCPCS: 99213

== ENCOUNTER → 2024-07-18 09:57 | Outpatient (BNVA) | payer BC, SELFPAY | PROVIDERS: PCP Internal Medicine; Visit Provider Student in an Organized Health Care Education/Training Program ==

== ENCOUNTER 2024-07-20 08:42 | Outpatient (AMB) | payer BC, SELFPAY ==
--- NOTE | 2024-07-20 08:43 | A.OFFPC_ITS ---
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 Required: No Accompanied by: Self / Same As Patient Allergies etanercept [From ENBREL] Allergy (Intermediate, Verified 07/20/24 08:45) RASH tofacitinib [From Xeljanz] Adverse Reaction (Intermediate, Verified 07/20/24 08:45) high LFT Medication List - Last Reconciled 07/20/24 by Etelvina Sears MD albuterol sulfate 2.5 mg (3 mL) inhalation Q4H PRN 30 days ascorbic acid (vitamin C) ER (Vitamin C ER) 1,000 mg PO azithromycin (Zithromax) For 250 mg dose pack: take 500 mg today (day 1), then 250 mg for 4 days (days 2-5) PO calcium citrate 650 mg PO DAILY cholecalciferol (vitamin D3) 50 mcg PO DAILY citalopram 20 mg PO DAILY 90 days cranberry extract 1 PO doxycycline hyclate 100 mg PO BID estradiol 0.01%(0.1mg/gram) pea-sized to urethra 2 times a week; 30 days inhalational spacing device (Aerovent Plus spacer) As directed levothyroxine 50 mcg PO DAILY nebulizers (AeroEclipse II Nebulizer) As directed pantoprazole 40 mg PO DAILY prednisone 4 tabs QD x 2 days then 3 tabs QD x 2 days then 2 tabs Qd x 2 days then 1 tab QD x 2 days PO daily; Rinvoq ER (upadacitinib) 15 mg PO DAILY 90 days NS rosuvastatin 5 mg PO DAILY Tobacco use date assessed: 07/20/24 Dental Screening Dental Screen Date: 07/20/24 Did you have a dental visit in the last 12 months?: Yes Did you have a dental problem in the last 6 months where you did not have access to dental care?: No Was dental information given to patient?: Patient has dentist HPI Cold Symptoms HPI Details wheezing 1 week took doxycycline, - states sob, congested, fevers, PFSH Medical History UTI (urinary tract infection) Osteopenia Pneumonia Elevated transaminase level Long-term use of immunosuppressant medication COVID-19 vaccine administered Hidradenitis suppurativa of left axilla Urge incontinence Hypercholesterolemia MRSA infection GERD (gastroesophageal reflux disease) Rheumatoid arthritis Hypothyroid Surgical History TMJ (sprain of temporomandibular joint) History of esophagogastroduodenoscopy (EGD) Hx of colonoscopy History of eye surgery Ulnar neuropathy at elbow of left upper extremity Plantar fasciitis, bilateral H/O tubal ligation Hx of tonsillectomy Inguinal hernia Family History Mother Myocardial infarct Father Lung cancer Paternal Uncle Bladder cancer Paternal Aunt Stomach cancer Maternal Uncle Myocardial infarct Social History Housing: House Are you a primary direct care specialist to a significant other at home: No Do you presently have visiting nurse or other home services: No Alcohol intake: current Alcohol intake frequency: a few times a month Alcohol type: wine and hard liquor Comment: 3-4 x a month glass of wine Patient Tobacco Use Status: Never used Tobacco e-Cigarette/Vaping Use: Never Used Second Hand Smoke Exposure: No Advance Directives Date on File: 09/17/20 service: No Current occupational status: employed 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 1. Little interest or pleasure in doing things: not at all 2. Feeling down, depressed, or hopeless: not at all 3. Trouble falling or staying asleep, or sleeping too much: not at all 4. Feeling tired or having little energy: not at all 5. Poor appetite or overeating: not at all 6. Feeling bad about yourself - or that you are a failure or have let yourself or your family down: not at all 7. Trouble concentrating on things, such as reading the newspaper or watching television: not at all 8. Moving or speaking so slowly that other people could have noticed. Or the opposite - being so fidgety or restless that you have been moving around a lot more than usual: not at all 9. Thoughts that you would be better off or of hurting yourself in some way: not at all Total score: 0 Depression Screening Interpretation: Negative Depression Screening Done: Yes Source: Developed by Drs. Cristhian Olivo, Xiao Vines, Augustine Adams and colleagues, with an educational jenna from [employer]. Thrive Questionnaire Date Thrive assessed: 07/20/24 I am a: Patient What is your living situation today?: I have a steady place to live Within the past 12 months, did the food you bought not last and you didn't have the money to get more?: Never true Within the past 12 months, did you worry whether your food would run out before you got money to buy more?: Never true Do you have trouble paying for medicines?: No Do you have trouble getting transportation to medical appointments?: No Do you have trouble paying your heating and electricity bill?: No Do you have trouble taking care of your child, family member or friend?: No Do you have trouble with day-to-day activities such as bathing, preparing meals, shopping, managing finances, etc.?: No Are you currently unemployed and looking for a job?: Yes Are you interested in more education?: No Please select the resources that you would like help with: None Currently or been in a relationship where the following occur: No concerns reported THRIVE Score: 0 AUDIT C Alcohol Use Questionnaire (AUDIT-C) 1. How often do you have a drink containing alcohol?: 2-4 times a month 2. How many drinks containing alcohol do you have on a typical day when you are drinking?: 1 or 2 3. How often do you have six or more drinks on one occasion?: Never Total Score: 2 GUADALUPE-7 AMB Questionnaire GUADALUPE-7 Date GUADALUPE - 7 assessed: 07/20/24 Feeling nervous, anxious, or on edge: 0 = Not at all Not being able to stop or control worryin = Not at all Worrying too much about different things: 0 = Not at all Trouble relaxin = Not at all Being so restless that it is hard to sit still: 0 = Not at all Becoming easily annoyed or irritable: 0 = Not at all Feeling afraid as if something awful might happen: 0 = Not at all Total GUADALUPE-7 score (0-4 normal; 5-9 mild; 10-14 moderate; 15-21 severe): 0 Source: Developed by Drs. Cristhian L. Xiao Olivo Kurt Kroenke and colleagues, with an educational jenna from [employer]. Physical exam (Primary Care) Tobacco/Smoking Status: Tobacco use Status Tobacco use date assessed 07/20/24 07/20/24 08:45 Patient Tobacco Use Status Never used Tobacco 07/20/24 08:45 e-Cigarette/Vaping Use Never Used 07/20/24 08:45 PHQ-9: PHQ-9 Score PHQ-9: Total score 0 07/20/24 08:45 Depression Screening Interpretation: Negative Thrive Assessment: Date of Thrive Assessment Date Thrive assessed 07/20/24 07/20/24 08:45 Currently or been in a relationship where the following occur: No concerns reported Telehealth Telehealth Telehealth Platform: Telephone Location of provider rendering services: practice address Location of patient: address on file Patient Identification confirmed using: Name, : Yes Telehealth method: voice only (android) Patient verbally consented to treatment: Yes Patient verbally consented to billing insurance company: Yes Patient informed of any privacy concerns related to visit: Yes Minutes spent on Phone/Video with Pt.: 15 Coding Level of Care Code Tele Est Pt Level 3 (18131) Diagnoses Asthma exacerbation J45.901 Assessment & Plan Assessment & Plan (1) Asthma exacerbation: Code(s): J45.901 - Unspecified asthma with (acute) exacerbation Category: Medical Plan History of Present Illness The patient is a 59-year-old female presenting with acute bronchial congestion and wheezing, beginning last . She reports severe head congestion and bronchial wheezing, unchanged significantly despite treatment with doxycycline, albuterol, and Mucinex. Symptoms include exercise-induced shortness of breath with pronounced wheezing, confirmed by another healthcare report suggesting steroid treatment. The patient is on medications for underlying conditions, including rheumatoid arthritis and asthma, which could impact respiratory symptoms. They confirmed willingness for steroid therapy and a possible chest X- ray, echoing recommendations based on their symptomatic presentation. Review of Systems - Respiratory: Reports head congestion, bronchial wheezing, shortness of breath, cough, and no significant lung congestion upon self-assessment. - Musculoskeletal: Reports no new complaints related to rheumatoid arthritis. - Psychological: Reports anxiety, taking citalopram. - Allergy: Denies any allergies except reactions to specific RNA medications. Plan I will prescribe prednisone for the patient's acute bronchial congestion with wheezing, as steroid treatment was discussed and agreed upon. A chest X-ray has been requested to coincide with scheduled knee X-rays for rheumatoid arthritis. The patient will finish her current doxycycline course while options for azithromycin are reserved, considering her imminent travel. Utilizing albuterol therapy and ensuring adequate hydration were advised, adapting to the patient's existing condition of asthma. This comprehensive care approach effectively addresses both her acute and chronic health needs. Patient was informed and verbally consented to the use of an ambient scribe for clinic note documentation during this visit. Discussion Notes During our discussion of the patient's acute bronchial congestion, we addressed the inadequacy of current antibiotic therapy, leading to the proposal of prednisone to manage bronchial inflammation and mitigate wheezing effectively. I outlined potential side effects and the necessity of taking it with food to prevent gastrointestinal distress. A chest X-ray was recommended to assess any underlying pathology, corroborating with her needs due to asthma. Alternative antibiotics were considered, primarily azithromycin, for future use if current treatment proves ineffective. Testing aligns with her travel plans, preemptively managing potential respiratory exacerbations. The patient was advised of the importance of using albuterol, maintaining hydration, and monitoring for changes in symptoms, particularly considering the travels ahead. I ensured to communicate the importance of adhering to prescribed therapies and keeping me informed rather than opting for telehealth solutions outside regular hours if symptoms do not improve. Patient Instructions - Take prednisone as prescribed, with food, to minimize stomach upset. - Continue using albuterol for wheezing and breathing difficulties. - Maintain hydration by drinking plenty of fluids. - Complete the current course of doxycycline. - Await results from the chest X-ray; take note of any worsening symptoms. - Carry the prescription for azithromycin as a backup while traveling. - Contact our office directly for medical concerns, ideally before seeking telemedicine options. - Follow up with the rheumatology department as scheduled for rheumatoid arthritis management. - Avoid overstraining or activities that exacerbate breathing difficulties. Orders: Orders XR chest 2V Today J45.901 - Unspecified asthma with (acute) exacerbation Medications: New prednisone 4 tabs QD x 2 days then 3 tabs QD x 2 days then 2 tabs Qd x 2 days then 1 tab QD x 2 days PO daily; 20 tabs 0RF J45.901 - Unspecified asthma with (acute) exacerbation, J45.909 - Unspecified asthma, uncomplicated azithromycin (Zithromax) For 250 mg dose pack: take 500 mg today (day 1), then 250 mg for 4 days (days 2-5) PO 6 tabs 0RF J45.901 - Unspecified asthma with (acute) exacerbation
--- OUTSIDE RECORDS SUMMARY | 2024-07-20 09:09 | XMS_ITS | Clinical Summary ---
Author Organization [facility] Address [address] [place] [address] Care Team Providers Care Usps Letter Carrier Name Role Phone Unavailable Primary Care Provider [...] abscesses due to MRSA. Off/on meds late [id number]. Enbrel stopped because of recurrent infections. Leflunomide [...] RESULTING AGENCY - 07/06/2018 4:50 PM EDT [id number] THINPREP PAP, IMAGED: NEGATIVE FOR SQUAMOUS INTRAEPITHELIAL [...]
== END 2024-07-20 11:00 | disposition home or self-care (01) ==
LOC: HO.HMCH 08:42
PROVIDERS: PCP Internal Medicine; Visit Provider Internal Medicine
DX: J45.901 Unspecified asthma with (acute) exacerbation (principal)

== ENCOUNTER → 2024-07-20 08:42 | Outpatient (BNVA) | payer BC, SELFPAY | PROVIDERS: PCP Internal Medicine; Visit Provider Internal Medicine | DX: Z13.89 Encounter for screening for other disorder (principal) ==

== ENCOUNTER 2024-07-21 11:56 | Outpatient (REF) | payer BC, SELFPAY ==
--- NOTE | ~2024-07-21 | XR_ITS ---
EXAMINATION: XR CHEST 2 VIEWS HISTORY: J45.901 - Unspecified asthma with (acute) exacerbation COMPARISON: Comparison is made with the prior examination dated 04/01/2022. FINDINGS: PA and lateral views of the chest are submitted. The lungs are expanded and clear. There is no pleural effusion, pneumothorax, or pulmonary vascular congestion. The heart is normal in size. The bones are intact. XR/XR chest 2V IMPRESSION: No acute cardiopulmonary abnormality. Electronically signed by: Cristhian Noonan MD 07/21/2024 12:55 PM EDT
--- NOTE | ~2024-07-21 | XR_ITS ---
Exam: Bilateral knee x-rays, 3 view TECHNIQUE: Standing AP, lateral, and sunrise views lower extremity joint, knee INDICATION: Right knee pain. Prior: None FINDINGS: RIGHT KNEE: There is a 4.2 x 1.6 x 2.2 cm (CC by AP by transverse) groundglass density in the distal diaphysis of the right femur in the central medullary space with mostly geographic margins and possible faint rings and arcs. There is mild medial joint space narrowing. There is a joint effusion. There are no osteophytes. LEFT KNEE: There is a lesion in the distal diaphysis and metadiaphysis of the femur measuring 9.4 x 1.7 x 3.1 cm CC by AP by transverse. There is a second similar smaller lesion in the tibial metadiaphysis. Margins are geographic. The lesion is heterogeneous with areas of sclerosis and scalloped margins with vague internal rings and arcs. No definite endosteal scalloping is identified. There is mild medial joint space narrowing. Joint spaces are otherwise preserved. There are no osteophytes or erosions. XR/XR Knee Yoni 3V IMPRESSION: RIGHT KNEE: There is a nonaggressive appearing lesion in the central medullary space of the distal right femoral metadiaphysis. This could represent a fibrous lesion or possibly a low-grade chondroid lesion. Mild nonspecific medial joint space narrowing. LEFT KNEE: There is a nonaggressive appearing lesion in the central medullary space of the distal femoral diaphysis and metadiaphysis with chondroid matrix likely representing a low-grade chondroid lesion, e.g. enchondroma. If the lesion is suspected to be symptomatic, consider MRI of the distal femur without with IV contrast. Smaller lesion in the metadiaphysis of the proximal tibia is also most consistent with a low-grade chondroid lesion. Mild nonspecific medial joint space narrowing. Electronically signed by: Cristi Reis MD 07/21/2024 01:08 PM EDT
--- OUTSIDE RECORDS SUMMARY | 2024-07-21 12:27 | XMS_ITS | Clinical Summary ---
Author Organization [facility] Address [address] [place] [address] Care Team Providers Care Reexaminer Name Role Phone Unavailable Primary Care Provider [...] abscesses due to MRSA. Off/on meds late [id number]. Enbrel stopped because of recurrent infections. Leflunomide [...] RESULTING AGENCY - 07/06/2018 4:50 PM EDT [id number] THINPREP PAP, IMAGED: NEGATIVE FOR SQUAMOUS INTRAEPITHELIAL [...]
== END 2024-07-21 11:57 | disposition home or self-care (01) ==
LOC: HO.XRAY 11:56
PROVIDERS: Absent Provider Student in an Organized Health Care Education/Training Program; PCP Internal Medicine; Visit Provider Internal Medicine
DX: J45.901 Unspecified asthma with (acute) exacerbation (principal); M25.561 Pain in right knee; M25.562 Pain in left knee
CPT/HCPCS: 71046; 73562

== ENCOUNTER → 2024-07-21 12:03 | Outpatient (BNV) | payer BC, SELFPAY | PROVIDERS: Absent Provider Student in an Organized Health Care Education/Training Program; PCP Internal Medicine; Visit Provider Radiology Diagnostic Radiology | DX: J45.901 Unspecified asthma with (acute) exacerbation (principal); M25.561 Pain in right knee | CPT/HCPCS: 71046; 73562 ==

== ENCOUNTER 2024-08-13 12:49 | Outpatient (REF) | payer BC, SELFPAY ==
--- NOTE | ~2024-08-13 | MR_ITS ---
Examination: MRI left femur without with IV contrast. IV contrast: 10 mL Gadavist TECHNIQUE: Multiplanar multisequence MR imaging lower extremity was performed without and with IV contrast COMPARISON: July 21, 2024 x-rays HISTORY: Femoral pain, bilateral, medullary lesion in the distal bilateral femurs on x-ray 3 weeks ago FINDINGS: There is a central medullary lesion in the distal femoral metadiaphysis. It measures 8.4 x 1.8 x 2.7 cm (CC by AP by transverse). On T1 imaging, there are somewhat concentric serpentine bands of low signal with interspersed high signal isointense to yellow marrow. On fluid sensitive sequences, there are serpentine globular bands of low, high, and intermediate signal. After contrast, there are hyperenhancing serpentine bands. There is no bone marrow edema, cortical destruction, or soft tissue extension. Muscle signal is physiologic without edema or fatty streaking, or atrophy. There are no abnormalities along major neurovascular bundles. There is no knee joint effusion. MR/MR femur LT wo/w con IMPRESSION: Suspected AVN involving the the distal femoral metadiaphysis. Electronically signed by: Cristi Reis MD 08/14/2024 11:16 AM EDT
--- NOTE | ~2024-08-13 | MR_ITS ---
Examination: MRI of the right femur without with IV contrast. TECHNIQUE: Multiplanar multisequence MRI of the right lower extremity was performed before and after IV contrast. IV contrast: 10 mL Gadavist INDICATION: Central medullary lesion in the distal right femur Prior: X-ray July 21, 2024 Findings: There is a central lesion in the distal metadiaphysis of the right femur. It measures 4.1 x 1.4 x 1.8 cm (CC by AP by transverse. On T1 imaging, it is intermediate signal with bands of low signal. On fluid sensitive sequences, it is intermediate high signal with curvilinear bands of low signal. There is no marrow edema. There is no cortical destruction. There is no soft tissue extension. After contrast, there is minimal enhancement. No abnormalities are evident. MR/MR femur RT wo/w con IMPRESSION: There is a nonaggressive appearing lesion in the right distal femoral metadiaphysis. The lesion is concerning for bone infarct/AVN. Electronically signed by: Cristi Reis MD 08/14/2024 11:16 AM EDT
--- OUTSIDE RECORDS SUMMARY | 2024-08-13 12:55 | XMS_ITS | Patient Health Record ---
Author Organization [facility] Address [address] [place] [address] Care Team Providers Care Demographic Analyst Name Role Phone Etelvina Sears Primary Care Provider Justino Quinn Unavailable [phone] Allergies Allergen (clinical drug ingredient) Drug/Non Drug Allergy documented on EMR Reaction Allergy Type Onset Date Status etanercept Enbrel rash Drug Allergy Active Reason For Referral No Information Medications Medication SIG (Take, Route, Frequency, Duration) Notes Start Date End Date Status Centrum Silver - as directed Orally Active Citalopram & Diet Manage Prod Active Rinvoq Active Pantoprazole Sodium 40 MG 1 tablet Orall y Once a day; Duration: 30 day(s) Active CeleXA Not-Taking Upadacitinib ER 15 MG 1 tablet Orally On ce a day; Duration: 30 day(s) Active Abatacept Not-Taking Levothyroxine Sodium Active oxyBUTYnin Active Prednisone Not-Takin g Ranitidine Not-Takin g Folic Acid Not-Takin g Physical Therapy . . . 2-3x/week; Duration: 3-4 weeks 03/15/2015 Unknown Methotrexate Not-Chilango ing Xeljanz Not-Taking Humira Not-Taking Meloxicam Not-Taking Fexofenadine HCl Not -Taking Sulindac Not-Taking Social History Tobacco use other than smoking: Question Answer Notes Are you an other tobacco user? No Problems Problem Type SNOMED Code ICD Code Onset Dates Problem Status W/U Status Risk Notes Problem Acquired hallux valgus (97880766) Hallux valgus (acquired), right foot (M20.11) Active confirmed Problem Acquired hammer toe of right foot ([id number] 05) Other hammer toe(s) (acquired), right foot (M20.41) Active confirmed Problem Acquired hammer toe of left foot ([id number] 03) Other hammer toe(s) (acquired), left foot (M20.42) Active confirmed Problem Pain in limb (74745743) Pain in unspecified foot (M79.673) Active confirmed Problem Rheumatoid arthritis (30621018) Rheumatoid arthritis involving multiple sites with positive rheumatoid factor (M05.79) Active confirmed Plan Of Treatment Pending Test Test Name Order Date X ray : Foot, left 3V 03/15/2015 93165, [id number]/[id number], JOINT/BURSA 0 04/02/2020 Insurance Providers Payer Name Payer Address Payer Phone Subscriber Number Group Number Insured Name Patient Relationship to Insured Coverage Start Date Coverage End Date Blue Benefits [address] [address] [place] [address] [id number] Marian Doran Self - patient is the insured Medical (General) History Medical History History ICD Code mumps chicken pox thyroid disorder Arthritis Back,Hip,and Knee pain Diverticulosis Hiatal hernia Lyme disease Reflux Measles Surgical History Surgery Date(Month/Year) Ulnar nerve repositioned surgery Bilateral Plantar Faciotomy tubal ligation 11/1987 Hernia Repair 07/1972 right eye lasik 2006 eye lens implant 2007 or 2008
[2024-08-13] MEDS: gadobutroL 10 ML VIAL IVPUSH (14:39)
== END 2024-08-13 12:50 | disposition home or self-care (01) ==
LOC: HO.MRI 12:49
PROVIDERS: PCP Internal Medicine; Visit Provider Student in an Organized Health Care Education/Training Program
DX: D16.9 Benign neoplasm of bone and articular cartilage, unspecified (principal)
CPT/HCPCS: 73720; A9585

== ENCOUNTER → 2024-08-13 12:56 | Outpatient (BNV) | payer BC, SELFPAY | PROVIDERS: PCP Internal Medicine; Visit Provider Radiology Diagnostic Radiology | DX: M79.652 Pain in left thigh (principal); M79.651 Pain in right thigh | CPT/HCPCS: 73720 ==

== ENCOUNTER 2024-08-15 15:53 | Outpatient (AMB) | payer BC, SELFPAY ==
--- NOTE | 2024-08-15 16:00 | MHC.OFFVIS ---
Intake Visit Reasons: 6m follow up Intake Note: Patient is present for RECURRENT UTI/INCONTINENCE/FAM HX BLADDER CA Urology Medication: Estrace Cream Antibiotic Allergy:NONE Blood Thinner:NONE TODAY'S PVR: 29ml's Cardiograph Operator Required: No Allergies etanercept (From ENBREL) Allergy (Intermediate, Verified 08/15/24 16:43) RASH tofacitinib (From Xeljanz) Adverse Reaction (Intermediate, Verified 08/15/24 16:43) high LFT Medication List - Last Reconciled 08/15/24 by MARYJO Slade albuterol sulfate 2.5 mg (3 mL) inhalation Q4H PRN 30 days ascorbic acid (vitamin C) ER (Vitamin C ER) 1,000 mg PO calcium citrate 650 mg PO DAILY cholecalciferol (vitamin D3) 50 mcg PO DAILY citalopram 20 mg PO DAILY 90 days cranberry extract 1 PO estradiol 0.01%(0.1mg/gram) pea-sized to urethra 2 times a week; 90 days inhalational spacing device (Aerovent Plus spacer) As directed levothyroxine 50 mcg PO DAILY nebulizers (AeroEclipse II Nebulizer) As directed pantoprazole 40 mg PO DAILY Rinvoq ER (upadacitinib) 15 mg PO DAILY 90 days NS rosuvastatin 5 mg PO DAILY HPI Comments Details: Marian is a very pleasant 59-year-old female patient of Dr. Sears. She has a past medical history of osteopenia, pneumonia, long-term use of immunosuppressant medication due to rheumatoid arthritis, GERD, and hypothyroidism. She presents to the office today for follow-up of her recurrent urinary tract infections. In discussion with the patient today she reports compliance with Estrace cream, vitamin-C, and cranberry pills as prescribed. She reports having had 1 urinary tract infection since her last office visit here approximately 6 months ago. She discusses this happened recently with a trip to [place]. She reports having completed antibiotic therapy as prescribed by provider. She currently denies any UTI like symptoms. In office urinalysis results reviewed with the patient today. She denies urinary urgency, urinary frequency, nocturia, hematuria, dysuria, foul smelling urine, changes to urinary stream, flank pain, fever, and or chills. She is happy with her current voiding parameters. PVR 29 mL. All questions were answered. She otherwise offers no other issues or concerns at this time. [facility] Medical History UTI (urinary tract infection) Osteopenia Pneumonia Elevated transaminase level Long-term use of immunosuppressant medication COVID-19 vaccine administered Hidradenitis suppurativa of left axilla Urge incontinence Hypercholesterolemia MRSA infection GERD (gastroesophageal reflux disease) Rheumatoid arthritis Hypothyroid Surgical History TMJ (sprain of temporomandibular joint) History of esophagogastroduodenoscopy (EGD) Hx of colonoscopy History of eye surgery Ulnar neuropathy at elbow of left upper extremity Plantar fasciitis, bilateral H/O tubal ligation Hx of tonsillectomy Inguinal hernia Family History Mother Myocardial infarct Father Lung cancer Paternal Uncle Bladder cancer Paternal Aunt Stomach cancer Maternal Uncle Myocardial infarct Social History Housing: House Are you a primary respiratory care program director to a significant other at home: No Do you presently have visiting nurse or other home services: No Alcohol intake: current Alcohol intake frequency: a few times a month Alcohol type: wine and hard liquor Comment: 3-4 x a month glass of wine Patient Tobacco Use Status: Never used Tobacco e-Cigarette/Vaping Use: Never Used Second Hand Smoke Exposure: No Advance Directives Date on File: 09/17/20 service: No Current occupational status: employed 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 Cognitive needs: No Hearing needs: No Vision needs: Yes Review of Systems Const All systems reviewed & are unremarkable except as noted in HPI and below Physical Exam Const General: cooperative, healthy appearing, comfortable, no acute distress, well developed, alert and awake Orientation/consciousness: patient oriented x3 Limitations: no limitations HEENT Head: Yes normal to inspection, Yes normocephalic and Yes atraumatic Ears: hearing grossly normal bilaterally Eyes General: appearance normal, both eyes and all related structures Neck Neck: Yes normal visual inspection and Yes trachea midline Chest Chest palpation & inspection: normal inspection of the chest Resp Effort & Inspection: normal respiratory effort and able to speak in complete sentences Cardio Rate: regular rate GI Inspection: Yes normal to inspection General: Yes no CVA tenderness Back/Spine/Pelvis Back: no CVA tenderness Skin General skin exam: no rashes or lesions noted Neuro General: patient oriented x3 Extrem General: Yes normal to inspection Psych Appearance: grossly normal and well kempt Mental Status: mental status grossly normal Speech and movement: Normal speech and movement present and Clear speech present Affect: normal affect Attitude: cooperative Thought process: Normal thought process present Thought content: Normal thought content present Insight: Fair insight present (Psych) Judgement: Fair judgement present (Psych) Office Procedures Post Void Residual Post Residual Void Post Void Residual (PVR): 29 40950-Dmha Void Residual by ultrasound Results AMB Urinalysis, Automated UA Leukoctes 15 Leticia/uL Last Edit by Kimmie Sanchez [facility] on 08/15/24 16:18 UA Nitrite Last Edit by Kimmie Sanchez [facility] on 08/15/24 16:18 UA Urobilinogen 0.2 mg/dL Last Edit by Kimmie Sanchez [facility] on 08/15/24 16:18 UA Protein 0 mg/dL Last Edit by Kimmie Sanchez [facility] on 08/15/24 16:18 UA pH 5.5 Last Edit by Kimmie Sanchez [facility] on 08/15/24 16:18 UA Blood 0 Ilia/uL Last Edit by Kimmie Sanchez [facility] on 08/15/24 16:18 UA Specific [place] 1.025 Last Edit by Kimmie Sanchez [facility] on 08/15/24 16:18 UA Ketone Last Edit by Kimmie Sanchez [facility] on 08/15/24 16:18 UA Bilirubin 1 mg/dL Last Edit by Kimmie Sanchez [facility] on 08/15/24 16:18 UA Glucose 0 mg/dL [facility] Edit [facility] on 08/15/24 16:18 Results Reviewed Results Reviewed: Laboratory Last Values Urine pH (Auto) 5.5 08/15/24 16:17 Specific [place] (Auto) 1.025 08/15/24 16:17 Urine Protein (Auto) 0 mg/dL 08/15/24 16:17 Glucose (UA)(Auto) 0 mg/dL 08/15/24 16:17 Urine Blood (Auto) 0 Ilia/uL 08/15/24 16:17 Urine Bilirubin (Auto) 1 mg/dL 08/15/24 16:17 Urine Urobilinogen (Auto) 0.2 mg/dL 08/15/24 16:17 Leukocyte Esterase (Auto) 15 Leticia/uL 08/15/24 16:17 Assessment & Plan Assessment & Plan (1) UTI (urinary tract infection): Code(s): N39.0 - Urinary tract infection, site not specified Category: Medical Plan In office urinalysis results with the patient today; as noted above. PVR 29 mL. Continue Estrace cream as discussed and prescribed. She currently denies any bothersome urinary issues or concerns. She reports be happy with current voiding parameters. Will continue with surveillance monitoring. Discussed UTI prevention with D mannose supplement, vitamin-C, increasing fluid intake, behavioral therapy with timed voiding, perineal hygiene and postcoital voiding, and management of constipation with stool softeners and increased fiber intake. Follow-up in 6 months with PVR; or sooner with any issues, concerns, and or questions. Orders: Orders AMB Urinalysis Automated Today Z13.9 - Encounter for screening, unspecified AMB Post Void Residual by ultrasound Today N39.0 - Urinary tract infection, site not specified Medications: Changed From estradiol 0.01%(0.1mg/gram) pea-sized to urethra 2 times a week; 42.5 grams 2RF 30 days N36.2 - Urethral caruncle, N39.0 - Urinary tract infection, site not specified, N95.2 - Postmenopausal atrophic vaginitis To estradiol 0.01%(0.1mg/gram) pea-sized to urethra 2 times a week; 42.5 grams 3RF 90 days N36.2 - Urethral caruncle, N39.0 - Urinary tract infection, site not specified, N95.2 - Postmenopausal atrophic vaginitis Patient Instructions: The patient had an opportunity to ask questions regarding the treatment plan. All questions were answered. Physical exam, labs, and imaging were discussed and reviewed in detail. As well as risks, benefits, and discussion of treatment choices. No major barriers to understanding were identified. The patient expressed understanding and agreement with the above treatment plan. The patient was made aware they should contact our office by phone for worsening of their current condition, the appearance of new symptoms, or with any questions or concerns. Compliance is encouraged with any medications and follow up testing that is ordered. It is a privilege to be allowed the opportunity to participate in? your urological care.? Again, if you have any questions or concerns If you have any questions or concerns please do not hesitate to contact me. The office is [phone]. This note is constructed using voice recognition software. While every effort has been made to ensure accuracy building maintenance supervisor errors may have been included. Yours sincerely, MARYJO Slade Coding Level of Care Code Est Pt Level 3 (11816) Complex EM visit Add On G2211 Diagnoses UTI (urinary tract infection) N39.0 CPT Codes Post Residual Void - PVR CPT Code: 82209-Mufu Void Residual by ultrasound ([id number])
--- OUTSIDE RECORDS SUMMARY | 2024-08-15 16:22 | XMS_ITS | Clinical Summary ---
Author Organization [facility] Address [address] [place] [address] Care Team Providers Care It Corporate Recruiter Name Role Phone Unavailable Primary Care Provider Unavailabl e Surgical History Surgery Date Site/Laterality Comments TUBAL LIGATION PROCEDURE: HISTORICAL TUBAL LIGATION HERNIA REPAIR Bilateral PROCEDURE: HISTORICAL HERNIA REPAIR/ING; COMMENT: around age 8 y/o BLADDER SUSPENSION 2010 PROCEDURE: HISTORICAL BLADDER SUSPENSION; COMMENT: Dr. Maldonado, bladder sling EYE SURGERY PROCEDURE: CT TRABECULOPLASTY BY LASER SURGERY; COMMENT: right lasik on right OTHER SURGICAL HISTORY PROCEDURE: CT REPOSITIONING IO LENS PROSTHESIS REQ INC SPX; COMMENT: left eye FOOT SURGERY PROCEDURE: HISTORICAL FOOT SURGERY; COMMENT: plantar fascia repair bilateral OTHER SURGICAL HISTORY PROCEDURE: CT SUTURE NERVE REQ XTNSV MOBIL/TRPOS NERVE; COMMENT: left ulnar nerve UPPER GASTROINTESTINAL ENDOSCOPY 02/23/2012 PROCEDURE: CT UPPER GI ENDOSCOPY PERFORMED COLONOSCOPY 03/12/2009 PROCEDURE: [...] abscesses due to MRSA. Off/on meds late 4754-8680. Enbrel stopped because of recurrent infections. Leflunomide [...] reviewed with CAD and compared to previous. The breasts are composed of fatty and fibroglandular tissue. No suspicious mass, architectural distortion or suspicious calcifications [...] RESULTING AGENCY - 07/06/2018 4:50 PM EDT [id number] THINPREP PAP, IMAGED: NEGATIVE FOR SQUAMOUS INTRAEPITHELIAL LESION AND MALIGNANCY . SHEEBA EDWARDS(ASCP) (CASE ELECTRONICALLY SIGNED 07 06 2018) RESULT OF APTIMA HIGH RISK HPV ASSAY: HIGH RISK HPV: NEGATIVE (SEROTYPES 16,18,31,33,35,39,45,51,52,56,58,59,66,68) COMPLETED ON 2018-07-06 ADEQUACY: SATISFACTORY ENDOCERVICAL/TRANSFORMATION ZONE COMPONENT ABSENT. SOURCE: THINPREP PAP HPV ANY DX: REFLEX 16 AND 18, CERVICAL, IMAGED CLINICAL INFORMATION: HPV ANY DIAGNOSIS. LMP 09/05/16, PAP HX NEG, Z12.4 us Eileen Galvan MD LAB CYTOLOGY ORDERABLES Fin al Result HISTORICAL TESTING LAB RESULTING AGENCY from Last 3 Months or Most Recently Relevant to Health Maintenance
--- OUTSIDE RECORDS SUMMARY | 2024-08-15 16:22 | XMS_ITS | Patient Health Record ---
Author Organization [facility] Address [address] [place] [address] Care Team Providers Care Terminologist Name Role Phone Etelvina Sears Primary Care Provider Justino Quinn Unavailable [phone] Allergies Allergen (clinical drug ingredient) Drug/Non Drug [...] Status Risk Notes Problem Acquired hallux valgus (21194084) Hallux valgus (acquired), right foot (M20.11) Active confirmed Problem Acquired hammer toe of right foot (93750297132786 05) Other hammer toe(s) (acquired), right foot (M20.41) Active confirmed Problem Acquired hammer toe of left foot (22818790088393 03) Other hammer toe(s) (acquired), left foot (M20.42) Active confirmed Problem Pain in limb (45414376) Pain in unspecified foot (M79.673) Active confirmed Problem Rheumatoid arthritis (16148847) Rheumatoid arthritis involving multiple sites with positive rheumatoid factor (M05.79) Active confirmed Plan Of Treatment Pending Test Test Name Order Date X ray : Foot, left 3V 03/15/2015 94753, [id number]/INJECT, JOINT/BURSA 0 04/02/2020 Insurance Providers Payer Name Payer Address Payer Phone Subscriber Number Group Number Insured Name Patient Relationship to Insured Coverage Start Date Coverage End Date Blue Benefits [address] [address] [place] [address] [id number] Marian Doran Self - patient is the [...]
== END 2024-08-15 16:49 | disposition home or self-care (01) ==
LOC: HO.HUSH 15:54
PROVIDERS: PCP Internal Medicine; Visit Provider Nurse Practitioner Family
DX: N39.0 Urinary tract infection, site not specified (principal); Z13.9 Encounter for screening, unspecified
CPT/HCPCS: 99213

== ENCOUNTER → 2024-08-15 15:53 | Outpatient (BNVA) | payer BC, SELFPAY | PROVIDERS: PCP Internal Medicine; Visit Provider Nurse Practitioner Family | DX: N39.0 Urinary tract infection, site not specified (principal) | CPT/HCPCS: 51798; 81003 ==

== ENCOUNTER 2024-08-25 11:20 | Outpatient (REF) | payer BC, SELFPAY ==
--- NOTE | ~2024-08-25 | XR_ITS ---
CLINICAL HISTORY: polyarticular joint pain 2 views left hip Comparison: None Findings: No fractures or dislocations. No significant arthritic change. No soft tissue calcifications. Femoroacetabular joint distance is normal. No radiopaque foreign body. Impression: Normal left hip. 2 views right hip Comparison: None Findings: No fractures or dislocations. No significant arthritic change. No radiopaque foreign body. No erosions. No soft tissue calcifications. Impression: Normal right hip This document has been electronically signed by: Riccardo Soriano MD on 08/27/2024 21:04:21
--- NOTE | ~2024-08-25 | XR_ITS ---
CLINICAL HISTORY: polyarticular joint pain 3 views right ankle Comparison: None Findings: No fractures or dislocations No joint effusion. Ankle mortise measurements are normal. No significant arthritic change No radiopaque foreign body Impression: Normal right ankle 3 views left ankle Comparison: None Findings: No fractures or dislocations. No joint effusion. Ankle mortise measurements are normal. No significant arthritic change. No radiopaque foreign body. Impression: Normal left ankle This document has been electronically signed by: Riccardo Soriano MD on 08/27/2024 20:52:50
--- NOTE | ~2024-08-25 | XR_ITS ---
CLINICAL HISTORY: polyarticular joint pain 3 views right foot Comparison: None Findings: No fractures or dislocations No joint effusion There is mild degenerative narrowing of the 1st metatarsal phalangeal joint with small joint margin bone spurs. No radiopaque foreign body Impression: Mild 1st MTP degenerative joint space narrowing 3 views left foot Comparison: None. Findings: No fractures or dislocations. No joint effusion. There is mild 1st MTP joint space narrowing with small joint margin bone spurs. A small accessory cuboid bone is present adjacent to the lateral cuboid cortex. Bone spurs are present in the plantar surface and posterior cortex of the calcaneus. No radiopaque foreign body. Impression: Mild degenerative osteoarthritis. This document has been electronically signed by: Riccardo Soriano MD on 08/27/2024 21:09:56
--- NOTE | ~2024-08-25 | XR_ITS ---
CLINICAL HISTORY: polyarticular joint pain 4 views right wrist, occluding scaphoid view Comparison: None Findings: No fractures or dislocations No significant arthritic change. No erosions No radiopaque foreign body Impression: Normal right wrist. 4 views left wrist, including scaphoid view Comparison Findings: No fractures or dislocations. No significant arthritic change No radiopaque foreign body. No soft tissue calcifications Impression: Normal left wrist This document has been electronically signed by: Riccardo Soriano MD on 08/27/2024 21:06:17
--- NOTE | ~2024-08-25 | XR_ITS ---
CLINICAL HISTORY: polyarticular joint pain 3 views right hand Comparison: None Findings: There is a spiral nondisplaced fracture involving the diaphysis of the proximal phalanx of the little finger No significant arthritic change No erosions. Articular surfaces are preserved. No radiopaque foreign body Impression: Spiral nondisplaced fracture involving the proximal phalanx of the little finger, age undetermined, likely remote 3 views left hand Comparison: None Findings: No fractures or dislocations No significant arthritic change No erosions. No soft tissue calcifications. No radiopaque foreign body Impression: Joint surfaces are preserved. No acute skeletal abnormality. This document has been electronically signed by: Riccardo Soriano MD on 08/27/2024 21:02:14
--- OUTSIDE RECORDS SUMMARY | 2024-08-25 11:53 | XMS_ITS | Clinical Summary ---
Author Organization [facility] Address [address] [place] [address] Care Team Providers Care Recording Engineer Name Role Phone Unavailable Primary Care Provider Unavailabl e Surgical History Surgery Date Site/Laterality Comments TUBAL LIGATION PROCEDURE: HISTORICAL TUBAL LIGATION HERNIA REPAIR Bilateral PROCEDURE: HISTORICAL HERNIA REPAIR/ING; COMMENT: around age 8 y/o BLADDER SUSPENSION 2010 PROCEDURE: HISTORICAL BLADDER SUSPENSION; COMMENT: Dr. Maldonado, bladder sling EYE SURGERY PROCEDURE: [place] TRABECULOPLASTY BY LASER SURGERY; COMMENT: right lasik on right OTHER SURGICAL HISTORY PROCEDURE: [place] REPOSITIONING IO LENS PROSTHESIS REQ INC SPX; COMMENT: left eye FOOT SURGERY PROCEDURE: HISTORICAL FOOT SURGERY; COMMENT: plantar fascia repair bilateral OTHER SURGICAL HISTORY PROCEDURE: [place] SUTURE NERVE REQ XTNSV MOBIL/TRPOS NERVE; COMMENT: left ulnar nerve UPPER GASTROINTESTINAL ENDOSCOPY 02/23/2012 PROCEDURE: [place] UPPER GI ENDOSCOPY PERFORMED COLONOSCOPY 03/12/2009 PROCEDURE: [...] abscesses due to MRSA. Off/on meds late 4288-8303. Enbrel stopped because of recurrent infections. Leflunomide [...] 5 Years) and At-Risk Patients (6 to 49 Years) (2 of 2 - PCV) 07/21/2015 [...] 60-74 years 1-dose series) 2024 Influenza Vaccine (#1) 2024 , 11/15/2018, 12/16/2017, Additional history exists DTaP,Tdap,and Td [...] RESULTING AGENCY - 07/06/2018 4:50 PM EDT [id number] THINPREP PAP, IMAGED: NEGATIVE FOR SQUAMOUS INTRAEPITHELIAL [...]
--- OUTSIDE RECORDS SUMMARY | 2024-08-25 11:54 | XMS_ITS | Patient Health Record ---
Author Organization [facility] Address [address] [place] [address] Care Team Providers Care Emt I/85 Name Role Phone Etelvina Sears Primary Care Provider Justino Quinn Unavailable [phone] Allergies Allergen (clinical drug ingredient) Drug/Non Drug [...] Status Risk Notes Problem Acquired hallux valgus (81751300) Hallux valgus (acquired), right foot (M20.11) Active confirmed Problem Acquired hammer toe of right foot (30628911808150 05) Other hammer toe(s) (acquired), right foot (M20.41) Active confirmed Problem Acquired hammer toe of left foot (95172542213512 03) Other hammer toe(s) (acquired), left foot (M20.42) Active confirmed Problem Pain in limb (76012565) Pain in unspecified foot (M79.673) Active confirmed Problem Rheumatoid arthritis (40324738) Rheumatoid arthritis involving multiple sites with positive rheumatoid factor (M05.79) Active confirmed Plan Of Treatment Pending Test Test Name Order Date X ray : Foot, left 3V 03/15/2015 80568, [id number]/[id number], JOINT/BURSA 0 04/02/2020 Insurance Providers Payer Name Payer Address Payer Phone Subscriber Number Group Number Insured Name Patient Relationship to Insured Coverage Start Date Coverage End Date Blue Benefits [address] [address] [place] [address] [id number] Marian Doran Self - patient is the [...]
== END 2024-08-25 11:21 | disposition home or self-care (01) ==
LOC: HO.XRAY 11:20
PROVIDERS: PCP Internal Medicine; Visit Provider Student in an Organized Health Care Education/Training Program
DX: M06.09 Rheumatoid arthritis without rheumatoid factor, multiple sites (principal); M25.50 Pain in unspecified joint
CPT/HCPCS: 73110; 73130; 73522; 73610; 73630

== ENCOUNTER → 2024-08-25 11:24 | Outpatient (BNV) | payer BC, SELFPAY | PROVIDERS: PCP Internal Medicine; Visit Provider Radiology Diagnostic Radiology | DX: M13.0 Polyarthritis, unspecified (principal); S62.646A Nondisplaced fracture of proximal phalanx of right little finger, initial encounter for closed fracture | CPT/HCPCS: 73110; 73130; 73522; 73610; 73630 ==

== ENCOUNTER 2024-09-01 10:22 | Outpatient (REF) | payer BC, SELFPAY ==
--- OUTSIDE RECORDS SUMMARY | 2022-06-05 10:13 | XMS_ITS | Encounter Summary ---
Author Organization [facility] Address [address] [place] [address] Phone Care Team Providers Care Manager Of Sustainability Name Role Phone Etelvina Sears MD Primary Care Provider [phone] Encounter Details Date Type Department Care Team (Late st Contact Info) Description 06/05/2022 10:13 AM EDT Hospital Encounter [facility] [address] [place] [address] Sierra Khan CNP [address] [place] [phone] [email or web address] Social History Tobacco Use Types Packs/Day Years [...] abnormality. IMPRESSION: Normal chest. us Sierra Khan NEGATIVE NOTCHER IMG XR CHEST Final Resul t documented in this encounter Visit Diagnoses Not on filedocumented in this encounter Care Teams Manager Of Sustainability Relationship Specialty Start Date End Date Etelvina Sears MD [address] [place] [address] [place] [phone] PCP - General Internal Medicine 05/25/22 documented as of this encounter Additional Source Comments The information contained in this document represents components of the legal health record. It is not the complete legal health record.[facility]
--- OUTSIDE RECORDS SUMMARY | 2024-09-01 10:45 | XMS_ITS | Patient Health Record ---
[facility] Address [address] [place] [address] Care Team Providers Care Volcanologist Name Role Phone Etelvina Sears Primary Care Provider Justino Quinn Unavailable [phone] Allergies Allergen (clinical drug ingredient) Drug/Non Drug [...] Status Risk Notes Problem Acquired hallux valgus (00748346) Hallux valgus (acquired), right foot (M20.11) Active confirmed Problem Acquired hammer toe of right foot (96582522816751 05) Other hammer toe(s) (acquired), right foot (M20.41) Active confirmed Problem Acquired hammer toe of left foot (14285578577184 03) Other hammer toe(s) (acquired), left foot (M20.42) Active confirmed Problem Pain in limb (71610543) Pain in unspecified foot (M79.673) Active confirmed Problem Rheumatoid arthritis (98604055) Rheumatoid arthritis involving multiple sites with positive rheumatoid factor (M05.79) Active confirmed Plan Of Treatment Pending Test Test Name Order Date X ray : Foot, left 3V 03/15/2015 37615, [id number]/[id number], JOINT/BURSA 0 04/02/2020 Insurance Providers Payer Name Payer Address Payer Phone Subscriber Number Group Number Insured Name Patient Relationship to Insured Coverage Start Date Coverage End Date Blue Benefits [address] [address] [place] [address] [id number] Marian Doran Self - patient is the [...]
--- OUTSIDE RECORDS SUMMARY | 2024-09-01 10:45 | XMS_ITS | Encounter Summary ---
Author Organization [facility] Address [address] [place] [address] Care Team Providers Care Dental Biller Name Role Phone Issac Wilson MD Primary Care Provider Frances Wood MD Primary Care Provider Issac Reynolds MD Primary Care Provider Jeri Ramírez, Pcp Primary Care Provider Unavailabl e Reason for Visit * Reason Comments E-prescribe Rx Request Encounter Details Date Type Department Care Team Description 10/10/2018 Refill Adult Medicine [address] [address] Jose Maria Carlisle PA-C [address] [place] [id number] E-prescribe Rx Request Social History Tobacco Use [...] needs to get this med from her director search * Telephone Encounter - Mirian Sarmiento M.A. [...] Payor: -DC/PPO POS / Plan: PPO $30 [place] [id number] / ProductType: PPO [id number] documented in this encounter Plan of Treatment Not on file documented as of this encounter Visit Diagnoses Diagnosis Seropositive rheumatoid arthritis (HCC) Rheumatoid arthritis documented in this encounter Care Teams Dental Biller Relationship Specialty Start Date End Date Issac Wilson MD PCP - General Internal Medicine 09/28/13 12/20/18 Frances Gloria MD PCP - General Internal Medicine 12/21/18 12/21/19 Issac Wilson MD PCP - General Internal Medicine 12/22/19 03/12/20 Community, Pcp PCP - General Internal Medicine 03/13/20 documented as of this encounter
--- OUTSIDE RECORDS SUMMARY | 2024-09-01 10:45 | XMS_ITS | Clinical Summary ---
Author Organization [facility] Address [address] [place] [address] Care Team Providers Care Cafe Operator Name Role Phone Unavailable Primary Care Provider Unavailabl e Surgical History Surgery Date Site/Laterality Comments TUBAL LIGATION PROCEDURE: HISTORICAL TUBAL LIGATION HERNIA REPAIR Bilateral PROCEDURE: HISTORICAL HERNIA REPAIR/ING; COMMENT: around age 8 y/o BLADDER SUSPENSION 2010 PROCEDURE: HISTORICAL BLADDER SUSPENSION; COMMENT: Dr. Maldonado, bladder sling EYE SURGERY PROCEDURE: [place] TRABECULOPLASTY BY LASER SURGERY; COMMENT: right lasik on right OTHER SURGICAL HISTORY PROCEDURE: VT REPOSITIONING IO LENS PROSTHESIS REQ INC SPX; COMMENT: left eye FOOT SURGERY PROCEDURE: HISTORICAL FOOT SURGERY; COMMENT: plantar fascia repair bilateral OTHER SURGICAL HISTORY PROCEDURE: VT SUTURE NERVE REQ XTNSV MOBIL/TRPOS NERVE; COMMENT: left ulnar nerve UPPER GASTROINTESTINAL ENDOSCOPY 02/23/2012 PROCEDURE: VT UPPER GI ENDOSCOPY PERFORMED COLONOSCOPY 03/12/2009 PROCEDURE: [...] abscesses due to MRSA. Off/on meds late 3733-1385. Enbrel stopped because of recurrent infections. Leflunomide [...] Panel) 01/18/2022 Colorectal Cancer Screening: Colonoscopy 01/18/2022 HIV Screening 01/18/2022 Hepatitis C Screening 01/18/2022 Social Influencers of Health Screening 01/18/2022 Breast Cancer Screening 02/20/2022 02/20/19 21, 06/14/2018, 06/08/2017, Additional history exists RSV Immunization Adult Patients (1 - Risk 60-74 years 1-dose series) 2024 Depression Screening 02/16/2024 Influenza Vaccine (#1) 2024 0, 11/15/2018, 12/16/2017, Additional history exists DTaP,Tdap,and Td [...] RESULTING AGENCY - 07/06/2018 4:50 PM EDT [id number] THINPREP PAP, IMAGED: NEGATIVE FOR SQUAMOUS INTRAEPITHELIAL LESION AND MALIGNANCY . MAURICE DZIURA , CT(ASCP) (CASE ELECTRONICALLY SIGNED 07 06 2018) RESULT [...]
[2024-09-01 14:03] LABS: Appearance Urine Cloudy; Glucose Urine UA Negative (Negative); PH 6.0 (5.0-9.0); Specific Gravity - Urine 1.010 (1.005-1.025); UMIC TRIGGER UACC YES
[2024-09-01 14:08] LABS: UACC Culture Trigger YES
== END 2024-09-01 10:23 | disposition home or self-care (01) ==
LOC: HO.WFDLDS 10:22
PROVIDERS: Nurse Practitioner Family; Referring Provider Nurse Practitioner Family; Visit Provider Internal Medicine
DX: N30.90 Cystitis, unspecified without hematuria (principal); R30.0 Dysuria; R32 Unspecified urinary incontinence
CPT/HCPCS: 81001; 81003; 87086

== ENCOUNTER 2024-09-08 13:14 | Outpatient (AMB) | payer BC, SELFPAY ==
--- OUTSIDE RECORDS SUMMARY | 2022-06-05 10:13 | XMS_ITS | Encounter Summary ---
Author Organization [facility] Address [address] [place] [address] Phone Care Team Providers Care Boiler Shop Mechanic Name Role Phone Etelvina Sears MD Primary Care Provider [phone] Encounter Details Date Type Department Care Team (Late st Contact Info) Description 06/05/2022 10:13 AM EDT Hospital Encounter [facility] [address] [place] [address] Sierra Khan CNP [address] [place] [phone] [email or web address] Social History Tobacco Use Types Packs/Day Years [...] abnormality. IMPRESSION: Normal chest. us Sierra Khan PELLETIZER OPERATOR IMG XR CHEST Final Resul t documented in this encounter Visit Diagnoses Not on filedocumented in this encounter Care Teams Boiler Shop Mechanic Relationship Specialty Start Date End Date Etelvina Sears MD [address] [place] [address] [place] [phone] PCP - General Internal Medicine 05/25/22 documented as of this encounter Additional Source Comments The information contained in this document represents components of the legal health record. It is not the complete legal health record.[facility]
--- OUTSIDE RECORDS SUMMARY | 2024-09-08 13:17 | XMS_ITS | Patient Health Record ---
[facility] Address [address] [place] [address] Care Team Providers Care Paste Up Artist Name Role Phone Etelvina Sears Primary Care Provider Justino Quinn Unavailable [phone] Allergies Allergen (clinical drug ingredient) Drug/Non Drug [...] Status Risk Notes Problem Acquired hallux valgus (08524938) Hallux valgus (acquired), right foot (M20.11) Active confirmed Problem Acquired hammer toe of right foot (87046983647036 05) Other hammer toe(s) (acquired), right foot (M20.41) Active confirmed Problem Acquired hammer toe of left foot (41700212503847 03) Other hammer toe(s) (acquired), left foot (M20.42) Active confirmed Problem Pain in limb (75442926) Pain in unspecified foot (M79.673) Active confirmed Problem Rheumatoid arthritis (01010319) Rheumatoid arthritis involving multiple sites with positive rheumatoid factor (M05.79) Active confirmed Plan Of Treatment Pending Test Test Name Order Date X ray : Foot, left 3V 03/15/2015 05659, [id number]/[id number], JOINT/BURSA 0 04/02/2020 Insurance Providers Payer Name Payer Address Payer Phone Subscriber Number Group Number Insured Name Patient Relationship to Insured Coverage Start Date Coverage End Date Blue Benefits [address] [address] [place] [address] [id number] Marian Doran Self - patient is the [...]
--- OUTSIDE RECORDS SUMMARY | 2024-09-08 13:17 | XMS_ITS | Clinical Summary ---
Author Organization [facility] Address [address] [place] [address] Care Team Providers Care Powder Room Attendant Name Role Phone Unavailable Primary Care Provider Unavailabl e Surgical History Surgery Date Site/Laterality Comments TUBAL LIGATION PROCEDURE: HISTORICAL TUBAL LIGATION HERNIA REPAIR Bilateral PROCEDURE: HISTORICAL HERNIA REPAIR/ING; COMMENT: around age 8 y/o BLADDER SUSPENSION 2010 PROCEDURE: HISTORICAL BLADDER SUSPENSION; COMMENT: Dr. Maldonado, bladder sling EYE SURGERY PROCEDURE: ME TRABECULOPLASTY BY LASER SURGERY; COMMENT: right lasik on right OTHER SURGICAL HISTORY PROCEDURE: ME REPOSITIONING IO LENS PROSTHESIS REQ INC SPX; COMMENT: left eye FOOT SURGERY PROCEDURE: HISTORICAL FOOT SURGERY; COMMENT: plantar fascia repair bilateral OTHER SURGICAL HISTORY PROCEDURE: ME SUTURE NERVE REQ XTNSV MOBIL/TRPOS NERVE; COMMENT: left ulnar nerve UPPER GASTROINTESTINAL ENDOSCOPY 02/23/2012 PROCEDURE: ME UPPER GI ENDOSCOPY PERFORMED COLONOSCOPY 03/12/2009 PROCEDURE: [...] abscesses due to MRSA. Off/on meds late 0116-5101. Enbrel stopped because of recurrent infections. Leflunomide [...] RESULTING AGENCY - 07/06/2018 4:50 PM EDT [id number] THINPREP PAP, IMAGED: NEGATIVE FOR SQUAMOUS INTRAEPITHELIAL [...]
--- NOTE | 2024-09-08 13:36 | A.OFFVIS_ITS ---
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 possible sleep apnea. Sleep study done 10/05/2023 showing normal sleep study with no obstruction Body Masker Required: No Accompanied by: Self / Same As Patient Allergies etanercept (From ENBREL) Allergy (Intermediate, Verified 09/08/24 13:42) RASH tofacitinib (From Xeljanz) Adverse Reaction (Intermediate, Verified 09/08/24 13:42) high LFT HPI Comments Details: 59 year old female with RA referred to us for evaluation of hypersomnia by her pcp. HST 09/2023 normal sleep study no evidence of FLOWER. Labs reviewed with patient are normal. LFTS elevated due to therapy with Rinvoq ER 15mg po daily for RA 5x/wk. PMH R. mandible reconstruction due to avascular necrosis in 2023, [facility] [place]. Nick Reyes. She has chronic fatigue and is always yawning. She spaces out through the day, falls asleep at her desk during work. She goes to bed at 9:30pm to 11:30pm and can not fall asleep. She wakes up 2x for the bathroom and multiple arousals through the night. She snores loudly and has Gerd. She has an oral appliance for bruxism. Mood can be irritable though managed with citalopram 20mg due to serotonin deficiency. Memory stable. RLS denies. Has bilateral knee pain. Diet is stable she lost 5lbs, walks daily, and swims as she can. Takes calcium and vit d daily for Osteoarthritis. Chronic UTIs in the past continuously takes Vitamin C with cranberry and estradiol. She does not smoke or drink alcohol. FH +Mom CHF 76, Dad lung cancer 91.Sister 67+ Dementia. [facility] Medical History UTI (urinary tract infection) Osteopenia Pneumonia Elevated transaminase level Long-term use of immunosuppressant medication COVID-19 vaccine administered Hidradenitis suppurativa of left axilla Urge incontinence Hypercholesterolemia MRSA infection GERD (gastroesophageal reflux disease) Rheumatoid arthritis Hypothyroid Surgical History TMJ (sprain of temporomandibular joint) History of esophagogastroduodenoscopy (EGD) Hx of colonoscopy History of eye surgery Ulnar neuropathy at elbow of left upper extremity Plantar fasciitis, bilateral H/O tubal ligation Hx of tonsillectomy Inguinal hernia Family History Mother Myocardial infarct Father Lung cancer Paternal Uncle Bladder cancer Paternal Aunt Stomach cancer Maternal Uncle Myocardial infarct Social History Housing: House Are you a primary day care provider to a significant other at home: No Do you presently have visiting nurse or other home services: No Alcohol intake: current Alcohol intake frequency: a few times a month Alcohol type: wine and hard liquor Comment: 3-4 x a month glass of wine Patient Tobacco Use Status: Never used Tobacco e-Cigarette/Vaping Use: Never Used Second Hand Smoke Exposure: No Advance Directives Date on File: 09/17/20 service: No Current occupational status: employed 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 Cognitive needs: No Hearing needs: No Vision needs: Yes Physical Exam Vital Signs: Last Vital Signs Pulse 59 09/08/24 13:38 BP 100/70 09/08/24 13:38 Pulse Ox 98 09/08/24 13:38 Oxygen Delivery Method Room Air 09/08/24 13:38 BMI result Body Mass Index 32.4 Const General: cooperative, comfortable and no acute distress Orientation/consciousness: patient oriented x3 HEENT Face and sinus: Yes face symmetric Throat: Yes other ([place] score is 3) Eyes Pupils: Equal, round and reactive pupils present Neck Neck: Yes full ROM Resp Effort & Inspection: normal respiratory effort and able to speak in complete sentences Neuro General: patient oriented x3 and moves all extremities Cranial nerves: Yes Equal, round and reactive pupils present, Yes Normal accommodation reflex present, Yes Normal facial strength present, Yes Midline tongue present, Yes Ability to bilaterally rotate head present and Yes Ability to bilaterally elevate shoulders present Cognition (Neuro): normal cognition Gait exam (Neuro): Normal gait present Motor exam (neuro): 5/5 motor strength present throughout and Normal motor muscle tone present throughout Psych Appearance: grossly normal Mental Status: mental status grossly normal Attitude: cooperative Results Reviewed Results Reviewed: She has Avascular necrosis of the bilateral knee, and mandibular joint replaced. Findings: No fractures or dislocations. No joint effusion. There is mild 1st MTP joint space narrowing with small joint margin bone spurs. A small accessory cuboid bone is present adjacent to the lateral cuboid cortex. Bone spurs are present in the plantar surface and posterior cortex of the calcaneus. No radiopaque foreign body. Impression: Mild degenerative osteoarthritis. 09/2023 HST c/w no evidence of FLOWER. Assessment & Plan Assessment & Plan (1) Excessive daytime sleepiness: Code(s): G47.19 - Other hypersomnia Category: Medical (2) Bruxism, sleep-related: Code(s): G47.63 - Sleep related bruxism Category: Medical Plan PSG r/o sleep disorders. Labs r/o nutritional deficiencies. Bruxism continue using your mouth gaurd and f/u with Dr. Reyes re: TMJ Patient Instructions: Sleep Hygiene provided: set a scheduled bedtime and wake time to help regulate the circadian rhythm and balance the release of pituitary hormones. Sleep in a dark room, temperatures below 68 degrees, and no devices n bed. Limit caffeinated products 6 hours prior to bed, and limit fluids 2-4 hours prior to bed. Gentle night yoga, diffusing essential oils, and playing soft music can be relaxing. Coding Level of Care Code New Pt Level 4 (95179) Diagnoses Excessive daytime sleepiness G47.19 Bruxism, sleep-related G47.63 Time Spent (min) 40 Comment Evaluation of sleep Sleep Questionnaire Difficulty falling asleep: Yes Difficulty staying asleep?: Yes Number of arousals: 2-3 Snoring: Yes Witnessed apneas: No Gasping arousals: No Nocturia: No GERD: Yes Vivid dreams: Yes Acting out dreams: No Abnormal behavior in sleep: No Abnormal movements in sleep: No Morning headaches: No Excessive daytime sleepiness: Yes Daytime naps: Yes Restless legs: No Hallucinations: No Sleep paralysis: No Drop attacks: No Sleep Study: Yes CPAP: No
[2024-09-08 13:38] VITALS: BP 100/70; PULSE 59; O2SAT 98; BMI 32.4
== END 2024-09-08 14:16 | disposition home or self-care (01) ==
LOC: HO.HSMS 13:15
PROVIDERS: PCP Internal Medicine; Visit Provider Physician Assistant Medical
DX: G47.19 Other hypersomnia (principal); G47.63 Sleep related bruxism
CPT/HCPCS: 99204

== ENCOUNTER 2024-09-09 09:35 | Outpatient (REF) | payer BC, SELFPAY ==
[2024-09-09 11:05] LABS: Iron 94 mcg/dL (30-160); Percent Iron Saturation 31 % (15-50); Total Iron Binding Capacity 306 mcg/dL (228-428); Unsaturated Iron Binding 212 ug/dL
[2024-09-09 11:13] LABS: Ferritin 105 ng/mL (10-250)
[2024-09-09 11:33] LABS: Folate 9.3 ng/mL (> or = 4.0); Vitamin B12 585 pg/mL (200-900)
== END 2024-09-09 09:36 | disposition home or self-care (01) ==
LOC: HO.LAB 09:35
PROVIDERS: PCP Internal Medicine; Visit Provider Physician Assistant Medical
DX: G47.19 Other hypersomnia (principal); R53.83 Other fatigue
CPT/HCPCS: 36415; 82306; 82607; 82728; 82746; 83090; 83540; 83921

== ENCOUNTER 2024-09-15 12:48 | Outpatient (REF) | payer BC, SELFPAY ==
--- OUTSIDE RECORDS SUMMARY | 2022-06-05 10:13 | XMS_ITS | Encounter Summary ---
Author Organization [facility] Address [address] [place] [address] Phone Care Team Providers Care Director Of Business Operations Name Role Phone Etelvina Sears MD Primary Care Provider [phone] Encounter Details Date Type Department Care Team (Late st Contact Info) Description 06/05/2022 10:13 AM EDT Hospital Encounter [facility] [address] [place] [address] Sierra Khan CNP [address] [place] [phone] [email or web address] Social History Tobacco Use Types Packs/Day Years [...] abnormality. IMPRESSION: Normal chest. us Sierra Khan YOUTH DEVELOPMENT SPECIALIST IMG XR CHEST Final Resul t documented in this encounter Visit Diagnoses Not on filedocumented in this encounter Care Teams Director Of Business Operations Relationship Specialty Start Date End Date Etelvina Sears MD [address] [place] [address] [place] [phone] PCP - General Internal Medicine 05/25/22 documented as of this encounter Additional Source Comments The information contained in this document represents components of the legal health record. It is not the complete legal health record.[facility]
--- OUTSIDE RECORDS SUMMARY | 2024-09-15 12:50 | XMS_ITS | Patient Health Record ---
[facility] Address [address] [place] [address] Care Team Providers Care Lead C Developer Name Role Phone Etelvina Sears Primary Care Provider Justino Quinn Unavailable [phone] Allergies Allergen (clinical drug ingredient) Drug/Non Drug [...] Status Risk Notes Problem Acquired hallux valgus (60114542) Hallux valgus (acquired), right foot (M20.11) Active confirmed Problem Acquired hammer toe of right foot (34869411658046 05) Other hammer toe(s) (acquired), right foot (M20.41) Active confirmed Problem Acquired hammer toe of left foot (84414491293831 03) Other hammer toe(s) (acquired), left foot (M20.42) Active confirmed Problem Pain in limb (28867639) Pain in unspecified foot (M79.673) Active confirmed Problem Rheumatoid arthritis (14483862) Rheumatoid arthritis involving multiple sites with positive rheumatoid factor (M05.79) Active confirmed Plan Of Treatment Pending Test Test Name Order Date X ray : Foot, left 3V 03/15/2015 89136, [id number]/[id number], JOINT/BURSA 0 04/02/2020 Insurance Providers Payer Name Payer Address Payer Phone Subscriber Number Group Number Insured Name Patient Relationship to Insured Coverage Start Date Coverage End Date Blue Benefits [address] [address] [place] [address] [id number] Marian Doran Self - patient is the [...]
--- OUTSIDE RECORDS SUMMARY | 2024-09-15 12:50 | XMS_ITS | Clinical Summary ---
Author Organization [facility] Address [address] [place] [address] Care Team Providers Care Personnel Coordinator Name Role Phone Unavailable Primary Care Provider Unavailabl e Surgical History Surgery Date Site/Laterality Comments TUBAL LIGATION PROCEDURE: HISTORICAL TUBAL LIGATION HERNIA REPAIR Bilateral PROCEDURE: HISTORICAL HERNIA REPAIR/ING; COMMENT: around age 8 y/o BLADDER SUSPENSION 2010 PROCEDURE: HISTORICAL BLADDER SUSPENSION; COMMENT: Dr. Maldonado, bladder sling EYE SURGERY PROCEDURE: MA TRABECULOPLASTY BY LASER SURGERY; COMMENT: right lasik on right OTHER SURGICAL HISTORY PROCEDURE: MA REPOSITIONING IO LENS PROSTHESIS REQ INC SPX; COMMENT: left eye FOOT SURGERY PROCEDURE: HISTORICAL FOOT SURGERY; COMMENT: plantar fascia repair bilateral OTHER SURGICAL HISTORY PROCEDURE: MA SUTURE NERVE REQ XTNSV MOBIL/TRPOS NERVE; COMMENT: left ulnar nerve UPPER GASTROINTESTINAL ENDOSCOPY 02/23/2012 PROCEDURE: MA UPPER GI ENDOSCOPY PERFORMED COLONOSCOPY 03/12/2009 PROCEDURE: [...] abscesses due to MRSA. Off/on meds late 7646-4781. Enbrel stopped because of recurrent infections. Leflunomide [...] RESULTING AGENCY - 07/06/2018 4:50 PM EDT [id number] THINPREP PAP, IMAGED: NEGATIVE FOR SQUAMOUS INTRAEPITHELIAL [...]
== END 2024-09-15 12:49 | disposition home or self-care (01) ==
LOC: HO.CT 12:48
PROVIDERS: PCP Internal Medicine; Visit Provider Internal Medicine
DX: R91.1 Solitary pulmonary nodule (principal)
CPT/HCPCS: 71250

== ENCOUNTER → 2024-09-15 12:50 | Outpatient (BNV) | payer BC, SELFPAY | PROVIDERS: PCP Internal Medicine; Visit Provider Radiology Diagnostic Radiology | DX: R91.1 Solitary pulmonary nodule (principal) | CPT/HCPCS: 71250 ==

== ENCOUNTER 2024-09-25 08:38 | Outpatient (AMB) | payer BC, SELFPAY ==
--- OUTSIDE RECORDS SUMMARY | 2023-07-02 14:30 | XMS_ITS | Encounter Summary ---
Author Organization [facility] Address [address] [facility] [address] [place] [address] Phone Care Team Providers Care Incising Machine Operator Name Role Phone Etelvina Sears MD Primary Care Provider [phone] Encounter Details Date Type Department Care Team (Late st Contact Info) Description 07/02/2023 2:30 PM EDT Hospital Encounter [facility] [address] [place] [phone] Jesse Delatorre PA-C [address] [place] [phone] [email or web address] Social History Tobacco Use Types Packs/Day Years [...] on filedocumented in this encounter Care Teams Incising Machine Operator Relationship Specialty Start Date End Date Etelvina Sears MD [address] [place] [address] [place] [address] [phone] PCP - General Internal Medicine 05/25/22 documented as of this encounter Additional Source Comments The information contained in this document represents components of the legal health record. It is not the complete legal health record.[facility]
--- NOTE | 2024-09-25 08:44 | MHC.OFFVIS ---
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 Patient was seen by [facility] Rheumatology, x-rays and MRI were performed and she was referred to orthopedics. Patient reports having aches and pains in her knees. 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 Her pain is around her knees and at times shoots up her leg. States with use of knee bracing she has discomfort and they uncomfortable. Finds some relief with use of topical cream especially at night. Allergies etanercept (From ENBREL) Allergy (Intermediate, Verified 09/25/24 08:49) RASH tofacitinib (From Xeljanz) Adverse Reaction (Intermediate, Verified 09/25/24 08:49) high LFT Medication List - Last Reconciled 09/25/24 by Sam Dumont PA-C albuterol sulfate 2.5 mg (3 mL) inhalation Q4H PRN 30 days ascorbic acid (vitamin C) ER (Vitamin C ER) 1,000 mg PO calcium citrate 650 mg PO DAILY cholecalciferol (vitamin D3) 50 mcg PO DAILY citalopram 20 mg PO DAILY 90 days cranberry extract 1 PO estradiol 0.01%(0.1mg/gram) pea-sized to urethra 2 times a week; 90 days inhalational spacing device (Aerovent Plus spacer) As directed levothyroxine 50 mcg PO DAILY nebulizers (AeroEclipse II Nebulizer) As directed pantoprazole 40 mg PO DAILY Rinvoq ER (upadacitinib) 15 mg PO DAILY 90 days NS rosuvastatin 5 mg PO DAILY HPI HPI LIMNOLOGIST-B/L avascular necrosis of the distal femoral: Details: 59 yo female presents to the office today for bilat knee pain. 07/14/24 she developed right knee pain and had diff with WB. She did rest and was able to walk after 2 days. She was seen by her Rheum who order xrays and MRI which was suggestive for AVN. Stairs causes pain, the right knee feels like it will become stuck. [facility] Medical History UTI (urinary tract infection) Osteopenia Pneumonia Elevated transaminase level Long-term use of immunosuppressant medication COVID-19 vaccine administered Hidradenitis suppurativa of left axilla Urge incontinence Hypercholesterolemia MRSA infection GERD (gastroesophageal reflux disease) Rheumatoid arthritis Hypothyroid Surgical History TMJ (sprain of temporomandibular joint) History of esophagogastroduodenoscopy (EGD) Hx of colonoscopy History of eye surgery Ulnar neuropathy at elbow of left upper extremity Plantar fasciitis, bilateral H/O tubal ligation Hx of tonsillectomy Inguinal hernia Family History Mother Myocardial infarct Father Lung cancer Paternal Uncle Bladder cancer Paternal Aunt Stomach cancer Maternal Uncle Myocardial infarct Social History (Updated 09/25/24 @ 08:51 by LAVERNE Richards) Housing: House Are you a primary director medicare sales to a significant other at home: No Do you presently have visiting nurse or other home services: No Alcohol intake: current Alcohol intake frequency: a few times a month Alcohol type: wine and hard liquor Comment: 3-4 x a month glass of wine Patient Tobacco Use Status: Never used Tobacco e-Cigarette/Vaping Use: Never Used Second Hand Smoke Exposure: No Advance Directives Date on File: 09/17/20 service: No Current occupational status: employed 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 Full ROM . TTP mediall joint L>R No ligamentous laxity Calf supple non tender NVI Results Reviewed Results Reviewed: LEFT KNEE: There is a nonaggressive appearing lesion in the central medullary space of the distal femoral diaphysis and metadiaphysis with chondroid matrix likely representing a low-grade chondroid lesion, e.g. enchondroma. If the lesion is suspected to be symptomatic, consider MRI of the distal femur without with IV contrast. Smaller lesion in the metadiaphysis of the proximal tibia is also most consistent with a low-grade chondroid lesion. Mild nonspecific medial joint space narrowing. MR femur RT wo/w con IMPRESSION: There is a nonaggressive appearing lesion in the right distal femoral metadiaphysis. The lesion is concerning for bone infarct/AVN. MR femur LT wo/w con IMPRESSION: Suspected AVN involving the the distal femoral metadiaphysis. Assessment & Plan Assessment & Plan (1) Bilateral primary osteoarthritis of knee: Code(s): M17.0 - Bilateral primary osteoarthritis of knee Category: Medical (2) AVN of femur: Code(s): M87.059 - Idiopathic aseptic necrosis of unspecified femur Category: Medical Plan Images were reviewed with Dr. Bridges. There is no intervention warranted as far as the AVN goes. I did explain the role of physical therapy for bilateral knee pain in the setting of arthritis. Patient is not interested in this as she is quite active on her own. I explained with the AVN and this is something that appears chronic and nonaggressive and we can continue to watch this was annual MRIs. If she does develop worsening pain or unusual symptoms she can contact our office to be seen sooner otherwise she will follow up as needed. Coding Level of Care Code New Pt Level 3 (81032) Complex EM visit Add On G2211 Diagnoses Bilateral primary osteoarthritis of knee M17.0 AVN of femur M87.059
[2024-09-25 08:46] VITALS: BMI 32.4
--- OUTSIDE RECORDS SUMMARY | 2024-09-25 08:59 | XMS_ITS | Patient Health Record ---
[facility] Address [address] [place] [address] Care Team Providers Care Music Education Adjunct Professor Name Role Phone Etelvina Sears Primary Care Provider Justino Quinn Unavailable [phone] Allergies Allergen (clinical drug ingredient) Drug/Non Drug [...] Status Risk Notes Problem Acquired hallux valgus (96888423) Hallux valgus (acquired), right foot (M20.11) Active confirmed Problem Acquired hammer toe of right foot (823419257716 9105) Other hammer toe(s) (acquired), right foot (M20.41) Active confirmed Problem Acquired hammer toe of left foot (665191269389 9103) Other hammer toe(s) (acquired), left foot (M20.42) Active confirmed Problem Pain in limb (09452960) Pain in unspecified foot (M79.673) Active confirmed Problem Rheumatoid arthritis involving multiple sites with positive rheumatoid factor (M05.79) Active confirmed Plan Of Treatment Pending Test Test Name Order Date X ray : Foot, left 3V 03/15/2015 42028, [id number]/INJECT, JOINT/BURSA 0 04/02/2020 Insurance Providers Payer Name Payer Address Payer Phone Subscriber Number Group Number Insured Name Patient Relationship to Insured Coverage Start Date Coverage End Date Blue Benefits [address] [address] [place] [address] [id number] Marian Doran Self - patient is the [...]
--- OUTSIDE RECORDS SUMMARY | 2024-09-25 08:59 | XMS_ITS | Clinical Summary ---
Author Organization [facility] Address [address] [place] [address] Care Team Providers Care Mft Name Role Phone Unavailable Primary Care Provider Unavailabl e Surgical History Surgery Date Site/Laterality Comments TUBAL LIGATION PROCEDURE: HISTORICAL TUBAL LIGATION HERNIA REPAIR Bilateral PROCEDURE: HISTORICAL HERNIA REPAIR/ING; COMMENT: around age 8 y/o BLADDER SUSPENSION 2010 PROCEDURE: HISTORICAL BLADDER SUSPENSION; COMMENT: Dr. Maldonado, bladder sling EYE SURGERY PROCEDURE: LA TRABECULOPLASTY BY LASER SURGERY; COMMENT: right lasik on right OTHER SURGICAL HISTORY PROCEDURE: LA REPOSITIONING IO LENS PROSTHESIS REQ INC SPX; COMMENT: left eye FOOT SURGERY PROCEDURE: HISTORICAL FOOT SURGERY; COMMENT: plantar fascia repair bilateral OTHER SURGICAL HISTORY PROCEDURE: LA SUTURE NERVE REQ XTNSV MOBIL/TRPOS NERVE; COMMENT: left ulnar nerve UPPER GASTROINTESTINAL ENDOSCOPY 02/23/2012 PROCEDURE: LA UPPER GI ENDOSCOPY PERFORMED COLONOSCOPY 03/12/2009 PROCEDURE: [...] abscesses due to MRSA. Off/on meds late 1275-1032. Enbrel stopped because of recurrent infections. Leflunomide [...] RESULTING AGENCY - 07/06/2018 4:50 PM EDT [id number] THINPREP PAP, IMAGED: NEGATIVE FOR SQUAMOUS INTRAEPITHELIAL [...]
== END 2024-09-25 10:05 | disposition home or self-care (01) ==
LOC: HO.HOS 08:39
PROVIDERS: PCP Internal Medicine; Visit Provider Physician Assistant
DX: M17.0 Bilateral primary osteoarthritis of knee (principal); M87.059 Idiopathic aseptic necrosis of unspecified femur
CPT/HCPCS: 99203

== ENCOUNTER 2024-10-18 12:26 | Outpatient (REF) | payer BC, SELFPAY ==
--- OUTSIDE RECORDS SUMMARY | 2022-06-05 10:13 | XMS_ITS | Encounter Summary ---
Author Organization [facility] Address [address] [facility] [facility] [address] [place] [address] Phone Care Team Providers Care Transliterator Name Role Phone Etelvina Sears MD Primary Care Provider [phone] Encounter Details Date Type Department Care Team (Late st Contact Info) Description 06/05/2022 10:13 AM EDT Hospital Encounter [facility] [address] [place] [address] Sierra Khan CNP [address] [place] [phone] [email or web address] Social History Tobacco Use Types Packs/Day Years [...] abnormality. IMPRESSION: Normal chest. us Sierra Khan ALCOHOLISM WORKER IMG XR CHEST Final Resul t documented in this encounter Visit Diagnoses Not on filedocumented in this encounter Care Teams Transliterator Relationship Specialty Start Date End Date Etelvina Sears MD [address] [place] [address] [place] [phone] PCP - General Internal Medicine 05/25/22 documented as of this encounter Additional Source Comments The information contained in this document represents components of the legal health record. It is not the complete legal health record.[facility]
--- OUTSIDE RECORDS SUMMARY | 2022-06-14 09:43 | XMS_ITS | Encounter Summary ---
Author Organization [facility] Address [address] [place] [address] Phone Care Team Providers Care Pantograph Machine Set Up Operator Name Role Phone Etelvina Sears MD Primary Care Provider [phone] Encounter Details Date Type Department Care Team (Late st Contact Info) Description 06/14/2022 9:43 AM EDT Hospital Encounter [facility] [address] [place] [phone] Jesse Delatorre PA-C [address] [place] [phone] [email or web address] Social History Tobacco Use Types Packs/Day Years [...] on filedocumented in this encounter Care Teams Pantograph Machine Set Up Operator Relationship Specialty Start Date End Date Etelvina Sears MD [address] [place] [address] PCP - General Internal Medicine 05/25/22 documented as of this encounter Additional Source Comments The information contained in this document represents components of the legal health record. It is not the complete legal health record.[facility]
--- OUTSIDE RECORDS SUMMARY | 2023-07-02 14:30 | XMS_ITS | Encounter Summary ---
Author Organization [facility] Address [address] [place] [address] Phone Care Team Providers Care Apparel Manager Name Role Phone Etelvina Sears MD Primary Care Provider [phone] Encounter Details Date Type Department Care Team (Late st Contact Info) Description 07/02/2023 2:30 PM EDT Hospital Encounter [facility] [address] [place] [address] Jesse Delatorre PA-C [address] [place] [phone] [email or web address] edited the report originally createdby Marylou Clark. Jsese Delatorre PA-C IMG XR UPPER EXTREMITY Final R esult documented in this encounter Visit Diagnoses Not on filedocumented in this encounter Care Teams Apparel Manager Relationship Specialty Start Date End Date Etelvina Sears MD [address] [place] [address] [place] [address] [phone] PCP - General Internal Medicine 05/25/22 documented as of this encounter Additional Source Comments The information contained in this document represents components of the legal health record. It is not the complete legal health record.[facility]
[2024-10-18 12:51] LABS: MANUAL DIFF FLAG NO
[2024-10-18 13:35] LABS: Hematocrit 38.9 % (37.0-47.0); Hemoglobin 13.1 g/dl (12.0-16.0); Imm Gran Abs Auto 0.02 X10*3/uL (0.00-0.03); Imm Gran Pct Auto 0.4 % (0.0-0.4); Lymphocytes Absolute Auto 1.5 X10*3/uL (1.2-4.9); Mean Corpuscular HGB Conc 33.7 g/dl (31.0-35.0); Mean Corpuscular Hemoglobin 31.6 pg (27.0-33.0); Mean Corpuscular Volume 94.0 fL (80.0-98.0); NRBC Abs Auto 0.000 X10*3/uL (0.0-0.012); NRBC Pct Auto 0.0 /100WBC (0.0-0.2); Platelet Count 335 X10*3/uL (160-400); Red Blood Count 4.14 X10*6/uL (4.20-5.50); White Blood Count 5.5 X10*3/uL (4.8-10.8)
[2024-10-18 13:43] LABS: Hemoglobin A1C 147.4256 umol/L; Total Hemoglobin (HGBA1C) 3401.2552 umol/L
[2024-10-18 14:02] LABS: Appearance Urine Clear; Glucose Urine UA Negative (Negative); PH 6.5 (5.0-9.0); Specific Gravity - Urine 1.015 (1.005-1.025); UMIC TRIGGER UACC YES
[2024-10-18 14:08] LABS: Alanine Aminotransferase 84 U/L (0-31); Albumin Level 4.5 g/dL (3.5-5.0); Alkaline Phosphatase 81 U/L (39-117); Anion Gap 12 (12-20); Aspartate Amino Transferase 91 U/L (5-31); Blood Urea Nitrogen 16 mg/dL (9-16); Calcium 9.7 mg/dL (8.4-10.2); Carbon Dioxide 26 mmol/L (22-29); Chloride 107 mmol/L (96-108); Cholesterol 234 mg/dL (<200); Estimated Glomerular Filt Rate > 60; HDL Cholesterol 57 mg/dL (>40); Potassium 4.0 mmol/L (3.3-5.1); Sodium 141 mmol/L (135-145); Total Protein 7.5 g/dL (6.5-8.0); Triglycerides 402 mg/dL (<150)
[2024-10-18 14:12] LABS: Alanine Aminotransferase 83 U/L (0-31); Albumin Level 4.4 g/dL (3.5-5.0); Alkaline Phosphatase 83 U/L (39-117); Anion Gap 11 (12-20); Aspartate Amino Transferase 77 U/L (5-31); Blood Urea Nitrogen 15 mg/dL (9-16); Calcium 9.6 mg/dL (8.4-10.2); Carbon Dioxide 27 mmol/L (22-29); Chloride 107 mmol/L (96-108); Estimated Glomerular Filt Rate > 60; Potassium 4.1 mmol/L (3.3-5.1); Sodium 141 mmol/L (135-145); Total Protein 7.5 g/dL (6.5-8.0)
--- OUTSIDE RECORDS SUMMARY | 2024-10-18 14:57 | XMS_ITS | Encounter Summary ---
Author Organization [facility] Address [address] [place] [address] Care Team Providers Care Track Coach Name Role Phone Issac Wilson MD Primary Care Provider Frances Wood MD Primary Care Provider [facility] Issac Wilson MD Primary Care Provider Jeri Ramírez, Pcp Primary Care Provider Unavailabl e Reason for Visit * Reason Onset Date Comments Mychart Rx Refill 08/25/2018 Encounter Details Date Type Department Care Team Description 08/25/2018 Refill Adult Medicine [address] [address] Issac Wilson MD Mychart Rx Refill Social [...] hr tablet [Issac Wilson MD] Preferred pharmacy: [facility] [address] [place] [address] RICHI KNIGHT AT [facility] Comment: no refills remaining documented in this encounter Plan of Treatment Not on file documented as of this encounter Visit Diagnoses Diagnosis Hypothyroidism due to acquired atrophy of thyroid documented in this encounter Care Teams Track Coach Relationship Specialty Start Date End Date Issac Wilson MD PCP - General Internal Medicine 09/28/13 12/20/18 Frances Gloria MD PCP - General Internal Medicine 12/21/18 12/21/19 Issac Wilson MD PCP - General Internal Medicine 12/22/19 03/12/20 [facility] PCP - General Internal Medicine 03/13/20 documented as of this encounter
--- OUTSIDE RECORDS SUMMARY | 2024-10-18 14:57 | XMS_ITS | Encounter Summary ---
Author Organization [facility] Address [address] [place] [address] Care Team Providers Care Crosstie Inspector Name Role Phone Frances Gloria MD Primary Care Provider Issac Reynolds MD Primary Care Provider Jeri Ramírez, Pcp [facility] Encounter Details Date Type Department Care Team Description 06/28/2019 Pt. Non Urgent Medical Question Rheumatology - [address] [address] Brendon Gale MD Social History Tobacco Use [...] on filedocumented in this encounter Care Teams Crosstie Inspector Relationship Specialty Start Date End Date Frances Gloria MD PCP - General Internal Medicine 12/21/18 12/21/19 Issac Wilson MD PCP - General Internal Medicine 12/22/19 03/12/20 Eusebia Ramírez PCP - General Internal Medicine 03/13/20 documented as of this encounter
--- OUTSIDE RECORDS SUMMARY | 2024-10-18 14:57 | XMS_ITS | Encounter Summary ---
Author Organization [facility] Address [address] [place] [address] Care Team Providers Care Bargain Table Clerk Name Role Phone Frances Gloria MD Primary Care Provider Issac Reynolds MD Primary Care Provider Jeri Ramírez, Pcp Primary Care Provider [facility] Encounter Details Date Type Department Care Team Description 01/18/2019 Pt. Non Urgent Medical Question Rheumatology - [address] [address] Brendon Gale MD Fatty liver (Primary Dx) Social History Tobacco Use Types Packs/Day Years [...] Telephone Encounter - Reymundo Epstein M.A. - 01/18/2019 1:40 PM ESTFrom: Marian Doran To: Brendon Gale MD Sent: 01/18/2019 6:52 AM EST Subject: xeljanz Dr. Gale, When I saw you on Wednesday I was only thinking of joint pain. Since June or July maybe even earlier, Ihave been having muscle aches in my arms and legs, softer stools to the point of diarrhea, fatigue,headaches and lately insomnia. I checked side effects of Xeljanz again, could this be caused by themedication or could it be something else. I was chalking the symptoms to work and everyday life but now I concerned. Sorry I didn't mention this on Wednesday. Thanks, Marian documented in this encounter Plan of Treatment Not on file documented as of this encounter Results * ANTI-SMOOTH MUSCLE ANTIBODY (04/18/2019 8:21 AM EST) ANTI-SMOOTH MUSCLE ANTIBODY 14 <20 UNITS 04/20/2019 1:50 PM EST [facility] Comment: Interpretation: Negative Test performed at [facility], [address] , [place] [id number] Toby Ding MD - Meter And Regulator Shop Supervisor 04/18/2019 8:21 AM EST 04/18/2019 8:22 AM EST Brendon Gale MD LAB Performing Organization Address [facility] Co de Phone Number [facility] * ANTI-MITOCHONDRIAL ANTIBODY (04/18/2019 8:21 AM EST) AMA QUANTITATIVE 3.6 <20 UNITS 04/19/19 20 12:05 PM EST [facility] MITOCHONDRIAL ANTIBODIES NEGATIVE NEGATIVE 04/19/2019 12:05 PM EST [facility] 04/18/2019 8:21 AM EST 04/18/2019 8:22 AM EST Brendon Gale MD LAB Performing Organization Address City/[facility] Co de Phone Number [facility] * HEPATITIS B SURFACE AB TEST (04/18/2019 8:21 AM EST) Hepatitis B surface antibody NEGATIVE NEGATIVE 04/18/2019 2:35 PM EST [facility] 04/18/2019 8:21 AM EST 04/18/2019 8:22 AM EST Brendon Gale MD LAB Performing Organization Address [facility] Co de Phone Number [facility] * HEPATITIS C VIRUS SCREEN (04/18/2019 8:21 AM EST) Hepatitis C Virus Screen NEGATIVE NEGATIVE 04/18/2019 3:14 PM EST [facility] 04/18/2019 8:21 AM EST 04/18/2019 8:22 AM EST Brendon Gale MD LAB [facility] documented in this encounter Visit Diagnoses Diagnosis Fatty liver- Primary Other chronic nonalcoholic liver disease documented in this encounter Care Teams Bargain Table Clerk Relationship Specialty Start Date End Date Frances Gloria MD PCP - General Internal Medicine 12/21/18 12/21/19 Issac Wilson MD PCP - General Internal Medicine 12/22/19 03/12/20 [facility], Pcp PCP - General Internal Medicine 03/13/20 documented as of this encounter
--- OUTSIDE RECORDS SUMMARY | 2024-10-18 14:57 | XMS_ITS | Encounter Summary ---
Author Organization [facility] Address [address] [place] [address] Phone Care Team Providers Care Packer Name Role Phone Etelvina Sears MD Primary Care Provider [phone] Encounter Details Date Type Department Care Team (Late st Contact Info) Description 08/06/2023 Procedure Pass [facility], [place] [address] [facility] [place] [address] Social History Tobacco Use Types Packs/Day Years [...] on filedocumented in this encounter Care Teams Packer Relationship Specialty Start Date End Date Etelvina Sears MD [address] [facility] [address] [place] [phone] PCP - General Internal Medicine 05/25/22 documented as of this encounter Additional Source Comments The information contained in this document represents components of the legal health record. It is not the complete legal health record.[facility]
--- OUTSIDE RECORDS SUMMARY | 2024-10-18 14:57 | XMS_ITS | Encounter Summary ---
Author Organization [facility] Address [address] [place] [address] Care Team Providers Care Technical Engineer Name Role Phone Issac Wilson MD Primary Care Provider Frances Wood MD Primary Care Provider [facility] Issac Wilson MD Primary Care Provider Jeri Ramírez, Pcp Primary Care Provider Miryam sherman Encounter Details Date Type Department Care Team Description 12/18/2018 Pt. Non Urgent Medical Question Rheumatology - [address] [address] Brendon Gale MD Social History Tobacco Use [...] for prescriptions. I don't get Xeglenz through [facility] mail any longer. The phone number is [...] filedocumented in this encounter Care Teams Technical Engineer Relationship Specialty Start Date End Date Issac Wilson MD PCP - General Internal Medicine 09/28/13 12/20/18 Frances Gloria MD PCP - General Internal Medicine 12/21/18 12/21/19 Issac Wilson MD PCP - General Internal Medicine 12/22/19 03/12/20 [facility], Pcp PCP - General Internal Medicine 03/13/20 documented as of this encounter
--- OUTSIDE RECORDS SUMMARY | 2024-10-18 14:57 | XMS_ITS | Encounter Summary ---
Author Organization [facility] Address [address] [place] [address] Care Team Providers Care Hearing Care Practitioner Name Role Phone Issac Wilson MD Primary Care Provider Frances Wood MD Primary Care Provider Unavail able Issac Wilson MD Primary Care Provider Jeri Ramírez Pcp Primary Care Provider Unavailjonatan e Encounter Details Date Type Department Care Team Description 08/13/2016 Pt. Non Urgent Medical Question Rheumatology - [address] [address] Brendon Gale MD Social History Tobacco Use [...] on filedocumented in this encounter Care Teams Hearing Care Practitioner Relationship Specialty Start Date End Date Issac Wilson MD PCP - General Internal Medicine 09/28/13 12/20/18 Frances Gloria MD PCP - General Internal Medicine 12/21/18 12/21/19 Issac Wilson MD PCP - General Internal Medicine 12/22/19 03/12/20 Eusebia Ramírez PCP - General Internal Medicine 03/13/20 documented as of this encounter
--- OUTSIDE RECORDS SUMMARY | 2024-10-18 14:57 | XMS_ITS | Encounter Summary ---
Author Organization [facility] Address [address] [place] [address] Care Team Providers Care Metal Cutter Name Role Phone Issac Wilson MD Primary Care Provider Frances Wood MD Primary Care Provider [facility] Issac Wilson MD Primary Care Provider Jeri Ramírez, Pcp Primary Care Provider Unavailabl e Reason for Visit * Reason Comments E-prescribe Rx Request Encounter Details Date Type Department Care Team Description 12/13/2018 Refill Adult Medicine [facility] [address] [place] [phone] [facility] [address] [place] [address] [phone] E-prescribe Rx Request Social History Tobacco Use [...] Payor: DRE/RYAN POS / Plan: PPO $30 [employer] [id number] / ProductType: PPO [id number] documented in this encounter Plan of Treatment Not on file documented as of this encounter Visit Diagnoses Diagnosis Globus sensation Gastrointestinal malfunction arising from mental factors Gastroesophageal reflux disease without esophagitis Esophageal reflux Hiatal hernia Diaphragmatic hernia without mention of obstruction or gangrene documented in this encounter Care Teams Metal Cutter Relationship Specialty Start Date End Date Issac Wilson MD PCP - General Internal Medicine 09/28/13 12/20/18 Frances Gloria MD PCP - General Internal Medicine 12/21/18 12/21/19 Issac Wilson MD PCP - General Internal Medicine 12/22/19 [facility]12[facility] 03/13/20 documented as of this encounter
--- OUTSIDE RECORDS SUMMARY | 2024-10-18 14:57 | XMS_ITS | Encounter Summary ---
Author Organization [facility] Address [address] [place] [address] Care Team Providers Care Brick Mason Name Role Phone Frances Gloria MD Primary Care Provider [facility] Issac Wilson MD Primary Care Provider Jeri ervin [facility], Pcp Primary Care Provider [facility] e Encounter Details Date Type Department Care Team Description 08/04/2019 Refill Gastroenterology - [address] [place] [phone] Jeffrey Mazariegos MD Social History Tobacco [...] on filedocumented in this encounter Care Teams Brick Mason Relationship Specialty Start Date End Date Frances Gloria MD PCP - General Internal Medicine 12/21/18 12/21/19 Issac Wilson MD PCP - General Internal Medicine 12/22/19 03/12/20 [facility], Pcp PCP - General Internal Medicine 03/13/20 documented as of this encounter
--- OUTSIDE RECORDS SUMMARY | 2024-10-18 14:57 | XMS_ITS | Encounter Summary ---
Author Organization [facility] Address [address] [place] [address] Care Team Providers Care Director Of Operations Home Health Name Role Phone Issac Wilson MD Primary Care Provider Frances Wood MD Primary Care Provider Unavail able Issac Wilson MD Primary Care Provider Jeri Ramírez Pcp [facility] Encounter Details Date Type Department Care Team Description 03/15/2015 Brazing Machine Tender Report Medical Records [address] [place] [address] Justino Tracey Social History Tobacco Use Types [...] in this encounter Care Teams Director Of Operations Home Health Relationship Specialty Start Date End Date Issac Wilson MD PCP - General Internal Medicine 09/28/13 12/20/18 Frances Gloria MD PCP - General Internal Medicine 12/21/18 12/21/19 Issac Wilson MD PCP - General Internal Medicine 12/22/19 03/12/20 Eusebia Ramírez PCP - General Internal Medicine 03/13/20 documented as of this encounter
--- OUTSIDE RECORDS SUMMARY | 2024-10-18 14:57 | XMS_ITS | Encounter Summary ---
Author Organization [facility] Address [address] [place] [address] Care Team Providers Care Program Director/Traffic Director Name Role Phone Frances Gloria MD Primary Care Provider Issac Reynolds MD Primary Care Provider Jeri Ramírez, Pcp Primary Care Provider [facility] Encounter Details Date Type Department Care Team Description 04/20/2019 Pt. Non Urgent Medical Question Rheumatology - [address] [address] Brendon Gale MD Chest wall tenderness (Primary [...] fracture documented in this encounter Care Teams Program Director/Traffic Director Relationship Specialty Start Date End Date Frances Gloria MD PCP - General Internal Medicine 12/21/18 12/21/19 Issac Wilson MD PCP - General Internal Medicine 12/22/19 03/12/20 [facility] PCP - General Internal Medicine 03/13/20 documented as of this encounter
--- OUTSIDE RECORDS SUMMARY | 2024-10-18 14:57 | XMS_ITS | Encounter Summary ---
Author Organization [facility] Address [address] [place] [address] Care Team Providers Care Fire Extinguisher Inspector Name Role Phone Issac Wilson MD Primary Care Provider Frances Wood MD Primary Care Provider Issac Reynolds MD Primary Care Provider Jeri Ramírez, Pcp Primary Care Provider Unavailabl e Reason for Visit * Reason Comments E-prescribe Rx Request Encounter Details Date Type Department Care Team Description 10/10/2018 Refill Adult Medicine [address] [address] Jose Maria Carlisle PA-C [address] [place] [id number] E-prescribe Rx Request Social History Tobacco Use [...] needs to get this med from her medical records administrator * Telephone Encounter - Mirian Sarmiento M.A. [...] N/A Patients current insurance carrier is: Payor: -[place]/PPO POS / Plan: PPO $30 [place] [id number] / ProductType: PPO [id number] documented in this encounter Plan of Treatment Not on file documented as of this encounter Visit Diagnoses Diagnosis Seropositive rheumatoid arthritis (HCC) Rheumatoid arthritis documented in this encounter Care Teams Fire Extinguisher Inspector Relationship Specialty Start Date End Date Issac Wilson MD PCP - General Internal Medicine 09/28/13 12/20/18 Frances Gloria MD PCP - General Internal Medicine 12/21/18 12/21/19 Issac Wilson MD PCP - General Internal Medicine 12/22/19 03/12/20 [facility], Pcp PCP - General Internal Medicine 03/13/20 documented as of this encounter
--- OUTSIDE RECORDS SUMMARY | 2024-10-18 14:57 | XMS_ITS | Encounter Summary ---
Author Organization [facility] Address [address] [place] [address] Care Team Providers Care Supervisor Rose Grading Name Role Phone Frances Gloria MD Primary Care Provider [facility] Issac Wilson MD Primary Care Provider Jeri ervin Formerly [facility], 1928–1983, Pcp Primary Care Provider [facility] Encounter Details Date Type Department Care Team Description 06/05/2019 Refill Gastroenterology - [address] [place] [phone] Jeffrey Mazariegos MD Social History Tobacco [...] filedocumented in this encounter Care Teams Supervisor Rose Grading Relationship Specialty Start Date End Date Frances Gloria MD PCP - General Internal Medicine 12/21/18 12/21/19 Issac Wilson MD PCP - General Internal Medicine 12/22/19 03/12/20 [facility]ly [facility], [facility], Pcp PCP - General Internal Medicine 03/13/20 documented as of this encounter
--- OUTSIDE RECORDS SUMMARY | 2024-10-18 14:57 | XMS_ITS | Encounter Summary ---
Author Organization [facility] Address [address] [place] [address] Care Team Providers Care Guide Dog Mobility Instructor Name Role Phone Frances Gloria MD Primary Care Provider Issac Reynolds MD Primary Care Provider Jeri Ramírez, Pcp Primary Care Provider Unavailabl e Reason for Visit * Reason Onset Date Comments Faxed Refill 05/29/2019 Encounter Details Date Type Department Care Team Description 05/29/2019 Refill Adult Medicine [address] [address] Frances Gloria MD Faxed Refill Social History [...] have an upcoming appointment? No-unable to reach [facility] to call for appointment due [...] DRE/PPO POS / Plan: PPO $25 [place] [id number] / ProductType: PPO [id number] documented in this encounter Plan of Treatment Not on file documented as of this encounter Visit Diagnoses Diagnosis Metatarsalgia of both feet Enthesopathy of ankle and tarsus, unspecified Pes planus of both feet Seropositive rheumatoid arthritis (HCC) Rheumatoid arthritis documented in this encounter Care Teams Guide Dog Mobility Instructor Relationship Specialty Start Date End Date Frances Gloria MD PCP - General Internal Medicine 12/21/18 12/21/19 Jacqueline Wilson-MD Won PCP - General Internal Medicine 12/22/19 03/12/20 [facility] Pcp PCP - General Internal Medicine 03/13/20 documented as of this encounter
--- OUTSIDE RECORDS SUMMARY | 2024-10-18 14:57 | XMS_ITS | Clinical Summary ---
Author Organization [facility] Address [address] [place] [address] Care Team Providers Care Plant Technician/Control Room Operator Name Role Phone Unavailable Primary Care Provider Unavailabl e Surgical History Surgery Date Site/Laterality Comments TUBAL LIGATION PROCEDURE: HISTORICAL TUBAL LIGATION HERNIA REPAIR Bilateral PROCEDURE: HISTORICAL HERNIA REPAIR/ING; COMMENT: around age 8 y/o BLADDER SUSPENSION 2010 PROCEDURE: HISTORICAL BLADDER SUSPENSION; COMMENT: Dr. 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 Off/on meds late [id number]. Enbrel stopped because of recurrent infections. Leflunomide [...] RESULTING AGENCY - 07/06/2018 4:50 PM EDT [id number] THINPREP PAP, IMAGED: NEGATIVE FOR SQUAMOUS INTRAEPITHELIAL [...]
--- OUTSIDE RECORDS SUMMARY | 2024-10-18 14:57 | XMS_ITS | Encounter Summary ---
Author Organization [facility] Address [address] [place] [address] Phone Care Team Providers Care Drainlayer Name Role Phone Etelvina Sears MD Primary Care Provider [phone] Encounter Details Date Type Department Care Team (Late st Contact Info) Description 06/17/2022 Procedure Pass [facility] [address] [place] [address] Social History Tobacco Use Types Packs/Day Years [...] on file 06/13/2022 No 06/13/2022 No 06/13/2022 Comments Unknown Sex and Gender Information Value [...] on filedocumented in this encounter Care Teams Drainlayer Relationship Specialty Start Date End Date Etelvina Sears MD [address] [place] [address] PCP - General Internal Medicine 05/25/22 documented as of this encounter Additional Source Comments The information contained in this document represents components of the legal health record. It is not the complete legal health record.[facility]
--- OUTSIDE RECORDS SUMMARY | 2024-10-18 14:57 | XMS_ITS | Encounter Summary ---
Author Organization [facility] Address [address] [place] [address] Care Team Providers Care Metal Mixer Name Role Phone Issac Wilson MD Primary Care Provider Frances Wood MD Primary Care Provider [facility] Issac Wilson MD Primary Care Provider Jeri Ramírez, Pcp Primary Care Provider Unavailjonatan e Encounter Details Date Type Department Care Team Description 07/22/2015 Refill Adult Medicine [address] [address] Issac Wilson MD Social History Tobacco Use [...] MCG tablet [Issac Wilson MD] Preferred pharmacy: [facility] [address] [place] [address] [employer] [facility] Comment: No refills left. Please send new script for these meds. Thank you. Medication renewals requested in this message routed to other providers: methotrexate 2.5 MG tablet [Brendon Gale MD] documented in this encounter Plan of Treatment Not on file documented as of this encounter Visit Diagnoses Not on filedocumented in this encounter Care Teams Metal Mixer Relationship Specialty Start Date End Date Issac Wilson MD PCP - General Internal Medicine 09/28/13 12/20/18 Frances Gloria MD PCP - General Internal Medicine 12/21/18 12/21/19 Issac Wilson MD PCP - General Internal Medicine 12/22/19 03/12/20 [facility] Pcp PCP - General Internal Medicine 03/13/20 documented as of this encounter
--- OUTSIDE RECORDS SUMMARY | 2024-10-18 14:57 | XMS_ITS | Encounter Summary ---
Author Organization [facility] Address [address] [place] [address] Care Team Providers Care Labelling Machine Operator Name Role Phone Frances Gloria MD Primary Care Provider Issac Reynolds MD Primary Care Provider Jeri [facility], Pcp Primary Care Provider Unavailabl e Reason for Visit * Reason Comments E-prescribe Rx Request Encounter Details Date Type Department Care Team Description 04/28/2019 Refill Podiatry - [address] [address] Lina Olmos DPM E-prescribe Rx Request Social [...] arthritis documented in this encounter Care Teams Labelling Machine Operator Relationship Specialty Start Date End Date Frances Gloria MD PCP - General Internal Medicine 12/21/18 12/21/19 Issac Wilson MD PCP - General Internal Medicine 12/22/19 03/12/20 [facility]cp PCP - General Internal Medicine 03/13/20 documented as of this encounter
--- OUTSIDE RECORDS SUMMARY | 2024-10-18 14:58 | XMS_ITS | Encounter Summary ---
Author Organization [facility] Address [address] [place] [address] Phone Care Team Providers Care Office Supervisor Name Role Phone Etelvina Sears MD Primary Care Provider [phone] Encounter Details Date Type Department Care Team ([facility] st Contact Info) Description 06/17/2022 Procedure Pass [facility] [address]th [place] [address] Social History Tobacco Use Types Packs/Day Years [...] on filedocumented in this encounter Care Teams Office Supervisor Relationship Specialty Start Date End Date Etelvina Sears MD [address] [place] [address] PCP - General Internal Medicine 05/25/22 documented as of this encounter Additional Source Comments The information contained in this document represents components of the legal health record. It is not the complete legal health record.[facility]
--- OUTSIDE RECORDS SUMMARY | 2024-10-18 14:58 | XMS_ITS | Encounter Summary ---
Author Organization [facility] Address [address] [place] [address] Care Team Providers Care Collective Bargaining Specialist Name Role Phone Roscoe Strickland MD Primary Care Provider Issac Barragan MD Primary Care Provider Frances Wood MD Primary Care Provider [facility] Issac Short MD Primary Care Provider Jeri Ramírez Pcp Primary Care Provider Miryam sherman Encounter Details Date Type Department Care Team Description 07/26/2012 Transfer Records Medical Records [address] [place] [address] Abstract, Provider Social History Tobacco Use Types [...] on filedocumented in this encounter Care Teams Collective Bargaining Specialist Relationship Specialty Start Date End Date [...]
--- OUTSIDE RECORDS SUMMARY | 2024-10-18 14:58 | XMS_ITS | Encounter Summary ---
Author Organization [facility] Address [address] [place] [address] Care Team Providers Care Threading Machine Feeder Automatic Name Role Phone Issac Wilson MD Primary Care Provider Frances Wood MD Primary Care Provider Unavail able Issac Wilson MD Primary Care Provider Jeri Ramírez Pcp Primary Care Provider Unavailjonatan e Encounter Details Date Type Department Care Team Description 01/21/2014 [facility] Medical Records [address] [place] [address] Social History Tobacco Use Types Packs/Day Years [...] on filedocumented in this encounter Care Teams Threading Machine Feeder Automatic Relationship Specialty Start Date End Date Issac Wilson MD PCP - General Internal Medicine 09/28/13 12/20/18 Frances Gloria MD PCP - General Internal Medicine 12/21/18 12/21/19 Issac Wilson MD PCP - General Internal Medicine 12/22/19 03/12/20 Eusebia Ramírez PCP - General Internal Medicine 03/13/20 documented as of this encounter
--- OUTSIDE RECORDS SUMMARY | 2024-10-18 14:58 | XMS_ITS | Encounter Summary ---
Author Organization [facility] [place] Address [address] [place] [address] Care Team Providers Care Frame Tender Name Role Phone Issac Wilson MD Primary Care Provider Frances Wood MD Primary Care Provider [facility] Issac Wilson MD Primary Care Provider Jeri Ramírez, Pcp Primary Care Provider Unavailabl e Reason for Visit * Reason Onset Date Comments refill request 07/02/2014 Encounter Details Date Type Department Care Team Description 07/02/2014 Refill Adult Medicine [address] [address] Issac Wilson MD refill request Social History [...] PM EDT Did speak with Fay from [employer] [place] this am * Telephone Encounter - Noreen Perdue - 07/02/2014 3:05 PM EDT Fay from [employer] insurance calling if to see patient has been on medication for since November 2013 continuously, or was there a break in between because this will determine how much of a dose patient will get please her back [id number] * Telephone Encounter - Issac Wilson - 07/02/2014 12:21 PM EDT This should come from her metal burnisher * Telephone Encounter - Georgina Neville - [...] AET[employer] / Plan: POS $20 EL CAROLANNO [id number] / Product Type: POS [id number] documented in this encounter Plan of Treatment Not on file documented as of this encounter Visit Diagnoses Diagnosis Rheumatoid arthritis(714.0)- Primary Rheumatoid arthritis documented in this encounter Care Teams Frame Tender Relationship Specialty Start Date End Date Issac Wilson MD PCP - General Internal Medicine 09/28/13 12/20/18 Frances Gloria MD PCP - General Internal Medicine 12/21/18 12/21/19 Issac Wilson MD PCP - General Internal Medicine 12/22/19 03/12/20 [facility] PCP - General Internal Medicine 03/13/20 documented as of this encounter
--- OUTSIDE RECORDS SUMMARY | 2024-10-18 14:58 | XMS_ITS | Encounter Summary ---
Author Organization [facility] Address [address] [place] [address] Care Team Providers Care Deputy Clerk Of Court Name Role Phone Roscoe Strickland MD Primary Care Provider Issac Barragan MD Primary Care Provider Frances Wood MD Primary Care Provider [facility] Issac Short MD Primary Care Provider Jeri Ramírez Pcp Primary Care Provider Unavailjonatan sherman Encounter Details Date Type Department Care Team Description 02/17/2012 Clutch Mechanic Report Medical Records [address] [place] [address] Rc Razo MD Social History Tobacco Use [...] on filedocumented in this encounter Care Teams Deputy Clerk Of Court Relationship Specialty Start Date End Date Roscoe [...]
--- OUTSIDE RECORDS SUMMARY | 2024-10-18 14:58 | XMS_ITS | Encounter Summary ---
Author Organization [facility] Address [address] [place] [address] Care Team Providers Care Electromedical Service Engineer Name Role Phone Issac Wilson MD Primary Care Provider Frances Wood MD Primary Care Provider Unavail able Issac Wilson MD Primary Care Provider Jeri Ramírez Pcp Primary [facility] Encounter Details Date Type Department Care Team Description 01/30/2014 Brim Ironer Hand Report Medical Records [address] [place] [address] Abstract, Provider Social History Tobacco Use Types [...] on filedocumented in this encounter Care Teams Electromedical Service Engineer Relationship Specialty Start Date End Date Issac Wilson MD PCP - General Internal Medicine 09/28/13 12/20/18 Frances Gloria MD PCP - General Internal Medicine 12/21/18 12/21/19 Issac Wilson MD PCP - General Internal Medicine 12/22/19 03/12/20 Eusebia Ramírez PCP - General Internal Medicine 03/13/20 documented as of this encounter
--- OUTSIDE RECORDS SUMMARY | 2024-10-18 14:58 | XMS_ITS | Encounter Summary ---
Author Organization [facility] Address [address] [place] [address] Care Team Providers Care Mule Spinner Name Role Phone Roscoe Strickland MD Primary Care Provider Issac Barragan MD Primary Care Provider Frances Wood MD Primary Care Provider Issac Reynolds MD Primary Care Provider Jeri Ramírez Pcp Primary Care Provider Miryam sherman Encounter Details Date Type Department Care Team Description 05/04/2013 Release of Information Medical Records [address] [place] [address] Abstract, Provider Social History Tobacco Use Types [...] on filedocumented in this encounter Care Teams Mule Spinner Relationship Specialty Start Date End Date Roscoe [...]
--- OUTSIDE RECORDS SUMMARY | 2024-10-18 14:58 | XMS_ITS | Encounter Summary ---
Author Organization [facility] Address [address] [place] [address] Care Team Providers Care Bumper Operator Name Role Phone Roscoe Strickland MD Primary Care Provider Issac Barragan MD Primary Care Provider Frances Wood MD Primary Care Provider [facility] Issac Short MD Primary Care Provider Jeri Ramírez Pcp Primary Care [facility] Encounter Details Date Type Department Care Team Description 01/23/2013 [facility] Medical Records [address] [place] [address] Brendon Bell MD [address] [place] [address] Social History Tobacco Use Types Packs/Day Years [...] on filedocumented in this encounter Care Teams Bumper Operator Relationship Specialty Start Date End Date Roscoe Strickland MD PCP - General 02/15/07 09/27/13 Issac Wilson MD PCP - General Internal Medicine 09/28/13 12/20/18 Frances Gloria MD PCP - General Internal Medicine 12/21/18 12/21/19 Issac Wilson MD PCP - General Internal Medicine 12/22/19 03/12/20 [facility], Pcp PCP - General Internal Medicine 03/13/20 documented as of this encounter
--- OUTSIDE RECORDS SUMMARY | 2024-10-18 14:58 | XMS_ITS | Encounter Summary ---
Author Organization [facility] Address [address] [place] [address] Care Team Providers Care Packing And Final Assembly Supervisor Name Role Phone Issac Wilson MD Primary Care Provider Frances Wood MD Primary Care Provider Unavail able Issac Wilson MD Primary Care Provider Jeri Ramírez Pcp Primary Care Provider Unavailabl e Reason for Visit * Reason Onset Date Comments Medication 03/04/2018 Encounter Details Date Type Department Care Team Description 03/04/2018 Telephone Gastroenterology - [address] [place] [phone] Senthil Reyes MD Medication Social History [...] on filedocumented in this encounter Care Teams Packing And Final Assembly Supervisor Relationship Specialty Start Date End Date Issac Wilson MD PCP - General Internal Medicine 09/28/13 12/20/18 Frances Gloria MD PCP - General Internal Medicine 12/21/18 12/21/19 Issac Wilson MD PCP - General Internal Medicine 12/22/19 03/12/20 [facility], Pcp PCP - General Internal Medicine 03/13/20 documented as of this encounter
--- OUTSIDE RECORDS SUMMARY | 2024-10-18 14:58 | XMS_ITS | Encounter Summary ---
Author Organization [facility] Address [address] [place] [address] Care Team Providers Care Credit Controller Name Role Phone Frances Gloria MD Primary Care Provider [facility] Issac Short MD Primary Care Provider Jeri Ramírez, Pcp Primary Care Provider [facility] Encounter Details Date Type Department Care Team Description 02/20/2019 Busgirl Report Medical Records [address] [place] [address] Kushal Ferrer Social History Tobacco Use Types [...] on filedocumented in this encounter Care Teams Credit Controller Relationship Specialty Start Date End Date Frances Gloria MD PCP - General Internal Medicine 12/21/18 12/21/19 Issac Wilson MD PCP - General Internal Medicine 12/22/19 03/12/20 Eusebia Ramírez PCP - General Internal Medicine 03/13/20 documented as of this encounter
--- OUTSIDE RECORDS SUMMARY | 2024-10-18 14:58 | XMS_ITS | Encounter Summary ---
Author Organization [facility] Address [address] [place] [address] Phone Care Team Providers Care Wharf Tally Clerk Name Role Phone Etelvina Sears MD Primary Care Provider [phone] Encounter Details Date Type Department Care Team (Late st Contact Info) Description 02/25/[address] [facility], [address] [place] [address] Social History Tobacco Use Types Packs/Day Years [...] on filedocumented in this encounter Care Teams Wharf Tally Clerk Relationship Specialty Start Date End Date Etelvina Sears MD [address] [place] [phone] PCP - General Internal Medicine 05/25/22 documented as of this encounter Additional Source Comments The information contained in this document represents components of the legal health record. It is not the complete legal health record.[facility]
--- OUTSIDE RECORDS SUMMARY | 2024-10-18 14:58 | XMS_ITS | Encounter Summary ---
Author Organization [facility] Address [address] [place] [address] Care Team Providers Care Color Maker Formulator Name Role Phone Roscoe Strickland MD Primary Care Provider Issac Barragan MD Primary Care Provider Frances Wood MD Primary Care Provider Issac Reynolds MD Primary Care Provider Jeri Ramírez Pcp Primary Care Provider Miryam sherman Encounter Details Date Type Department Care Team Description 05/20/2011 [facility] [place] [address] Jose Maria Bonilla MD Social History Tobacco [...] on filedocumented in this encounter Care Teams Color Maker Formulator Relationship Specialty Start Date End Date Roscoe [...]
--- OUTSIDE RECORDS SUMMARY | 2024-10-18 14:58 | XMS_ITS | Encounter Summary ---
Author Organization [facility] Address [address] [place] [address] Care Team Providers Care Digital Hardware Design Engineer Name Role Phone Roscoe Strickland MD Primary Care Provider Issac Barragan MD Primary Care Provider Frances Wood MD Primary Care Provider [facility] Issac Short MD Primary Care Provider Jeri Ramírez, Pcp Primary Care Provider Unavailjonatan sherman Encounter Details Date Type Department Care Team Description 02/23/2011 Inspector Rough Castings Report Medical Records [address] [place] [phone] Riccardo Hernandez MD, MD Social History Tobacco [...] on filedocumented in this encounter Care Teams Digital Hardware Design Engineer Relationship Specialty Start Date End [...]
--- OUTSIDE RECORDS SUMMARY | 2024-10-18 14:58 | XMS_ITS | Encounter Summary ---
Author Organization [facility] [place] [facility] Address [address] [place] [address] Phone Care Team Providers Care Information Security Name Role Phone Etelvina Sears MD Primary Care Provider [phone] Encounter Details Date Type Department Care Team ([facility] st Contact Info) Description 08/06/2023 Procedure Pass [facility] PERIOPERATIVE DEPT [address] [place] [phone] Social History Tobacco Use Types Packs/Day Years [...] filedocumented in this encounter Care Teams Information Security Relationship Specialty Start Date End Date Etelvina Sears MD [address] [place] [phone] PCP - General Internal Medicine 05/25/22 documented as of this encounter Additional Source Comments The information contained in this document represents components of the legal health record. It is not the complete legal health record.[facility]
--- OUTSIDE RECORDS SUMMARY | 2024-10-18 14:58 | XMS_ITS | Encounter Summary ---
Author Organization [facility] Address [address] [place] [address] Care Team Providers Care Music Sound Light Technician Name Role Phone Roscoe Strickland MD Primary Care Provider Issac Barragan MD Primary Care Provider Frances Wood MD Primary Care Provider Issac Reynolds MD Primary Care Provider Jeri Ramírez Pcp Primary Care Provider Miryam sherman Encounter Details Date Type Department Care Team Description 09/01/2012 Release of Information Medical Records [address] [place] [id number] Abstract, Provider Social History Tobacco Use Types [...] on filedocumented in this encounter Care Teams Music Sound Light Technician Relationship Specialty Start Date End Date [...]
--- OUTSIDE RECORDS SUMMARY | 2024-10-18 14:58 | XMS_ITS | Encounter Summary ---
Author Organization [facility] Address [address] [place] [address] Care Team Providers Care Price Analyst Name Role Phone Roscoe Strickland MD Primary Care Provider Issac Barragan MD Primary Care Provider Frances Wood MD Primary Care Provider [facility] Issac Short MD Primary Care Provider Jeri Ramírez Pcp Primary Care Provider Unavailjonatan e Encounter Details Date Type Department Care Team Description 05/26/2010 [facility] Medical Records [address] [place] [address] Quiana Cosme MD Social History Tobacco Use [...] on filedocumented in this encounter Care Teams Price Analyst Relationship Specialty Start Date End Date [...]
--- OUTSIDE RECORDS SUMMARY | 2024-10-18 14:58 | XMS_ITS | Encounter Summary ---
Author Organization [facility] Address [address] [place] [address] Care Team Providers Care Aircraft Cleaning Supervisor Name Role Phone Franecs Gloria MD Primary Care Provider Issac Reynolds MD Primary Care Provider Jeri ervin [facility], Pcp Primary Care Provider Unavailabl e Reason for Visit * Reason Onset Date Comments immunizations 10/31/2019 Encounter Details Date Type Department Care Team Description 10/31/2019 Telephone Adult Medicine [address] [address] Frances Gloria MD immunizations Social History Tobacco [...] DRE/PPO POS / Plan: PPO $25 [place] [id number] / Product Type: PPO [id number] Pt wants all imunization record printed 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
--- OUTSIDE RECORDS SUMMARY | 2024-10-18 14:58 | XMS_ITS | Encounter Summary ---
Author Organization [facility] Address [address] [place] [address] Care Team Providers Care Imaging Technician Name Role Phone Issac Wilson MD Primary Care Provider Frances Wood MD Primary Care Provider Unavail able Issac Wilson MD Primary Care Provider Jeri Ramírez Pcp Primary Care Provider [facility] e Encounter Details Date Type Department Care Team Description 04/20/2016 Hospital Medical Records [address] [place] [address] Santhosh Rios MD Social History Tobacco Use [...] on filedocumented in this encounter Care Teams Imaging Technician Relationship Specialty Start Date End Date Issac Wilson MD PCP - General Internal Medicine 09/28/13 12/20/18 Frances Gloria MD PCP - General Internal Medicine 12/21/18 12/21/19 Issac Wilson MD PCP - General Internal Medicine 12/22/19 03/12/20 Eusebia Ramírez PCP - General Internal Medicine 03/13/20 documented as of this encounter
--- OUTSIDE RECORDS SUMMARY | 2024-10-18 14:58 | XMS_ITS | Encounter Summary ---
Author Organization [facility] Address [address] [place] [address] Care Team Providers Care Worm Grower Name Role Phone Issac Wilson MD Primary Care Provider Frances Wood MD Primary Care Provider Issac Reynolds MD Primary Care Provider Jeri Ramírez, Pcp Primary Care Provider Unavailjonatan e Encounter Details Date Type Department Care Team Description 01/10/2018 Refill Physiatry - [address] [address] Kirill Guardado DO Social History Tobacco Use [...] MG capsule [Kirill Guardado DO] Preferred pharmacy: [facility] [address] [place] [address] [facility] Comment: documented in this encounter Plan of Treatment Not on file documented as of this encounter Visit Diagnoses Diagnosis Chronic pain syndrome documented in this encounter Care Teams Worm Grower Relationship Specialty Start Date End Date Issac Wilson MD PCP - General Internal Medicine 09/28/13 12/20/18 Frances Gloria MD PCP - General Internal Medicine 12/21/18 12/21/19 Issac Wilson MD PCP - General Internal Medicine 12/22/19 03/12/20 [facility], Pcp PCP - General Internal Medicine 03/13/20 documented as of this encounter
--- OUTSIDE RECORDS SUMMARY | 2024-10-18 14:58 | XMS_ITS | Encounter Summary ---
Author Organization [facility] Address [address] [place] [address] Phone Care Team Providers Care Farm Assistant Name Role Phone Etelvina Sears MD Primary Care Provider [phone] Encounter Details Date Type Department Care Team (Late st Contact Info) Description 12/10/2022 Procedure Pass MRI, [facility] [address] [place] [address] Social History Tobacco Use Types Packs/Day Years [...] on filedocumented in this encounter Care Teams Farm Assistant Relationship Specialty Start Date End Date Etelvina Sears MD [address] [place] [phone] PCP - General Internal Medicine 05/25/22 documented as of this encounter Additional Source Comments The information contained in this document represents components of the legal health record. It is not the complete legal health record.[facility]
--- OUTSIDE RECORDS SUMMARY | 2024-10-18 14:58 | XMS_ITS | Encounter Summary ---
Author Organization [facility] Address [address] [place] [address] Care Team Providers Care Mast Maker Name Role Phone Frances Gloria MD Primary Care Provider Issac Reynolds MD Primary Care Provider [facility], Pcp Primary Care Provider Unavailabl e Reason for Visit * Reason Comments E-prescribe Rx Request Encounter Details Date Type Department Care Team Description 04/03/2019 Refill Physiatry - [address] [address] Kirill Guardado DO E-prescribe Rx Request Social History Tobacco Use [...] encounter Miscellaneous Notes * Telephone Encounter - Karen Staton M.A. - 04/11/2019 11:15 AM EST Message left for patient to call Script has been refused at this time. * Telephone Encounter - Karen Staton M.A. - 04/03/2019 8:26 AM EST Message left for patient to call I need to know if she is still taking the medication If so she needs an appointment. documented in this encounter Plan of Treatment Not on file documented as of this encounter Visit Diagnoses Diagnosis Chronic pain syndrome documented in this encounter Care Teams Mast Maker Relationship Specialty Start Date End Date Frances Gloria MD PCP - General Internal Medicine 12/21/18 12/21/19 Issac Wilson MD PCP - General Internal Medicine 12/22/19 03/12/20 [facility] Pcp PCP - General Internal Medicine 03/13/20 documented as of this encounter
--- OUTSIDE RECORDS SUMMARY | 2024-10-18 14:58 | XMS_ITS | Encounter Summary ---
Author Organization [facility] Address [address] [place] [address] Phone Care Team Providers Care Agile Qa Tester Name Role Phone Etelvina Sears MD Primary Care Provider [phone] Encounter Details Date Type Department Care Team (Late st Contact Info) Description 08/21/2022 Procedure Pass [facility] [address] [place] [id number] Social History Tobacco Use Types Packs/Day Years [...] on filedocumented in this encounter Care Teams Agile Qa Tester Relationship Specialty Start Date End Date Etelvina Sears MD [address] [place] [phone] PCP - General Internal Medicine 05/25/22 documented as of this encounter Additional Source Comments The information contained in this document represents components of the legal health record. It is not the complete legal health record.[facility]
--- OUTSIDE RECORDS SUMMARY | 2024-10-18 14:58 | XMS_ITS | Encounter Summary ---
Author Organization [facility] Address [address] [place] [address] Phone Care Team Providers Care Coin Collector Name Role Phone Etelvina Sears MD Primary Care Provider [phone] Reason for Referral * MRI/CAT Scan - Closed Specialty Diagnoses / Procedures Referred By Contac t Referred To Contact Radiology Diagnoses TMJ disease Procedures CT 3D Reconstruction Face CHG 3D RENDERING W/INTERP&POSTPROC DIFF WORK STATION Gabe Soriano MD Phone: tel: [email or web address] Referral ID Status Reason Start Date Expiration Date Visits Re quested Visits Authorized [id number] Closed 08/09/2023 1 1 Encounter Details Date Type Department Care Team (Late st Contact Info) Description 08/09/2023 Ancillary Orders [facility] Steffi ALY [address] [place] [address] Gabe Soriano MD [address] [place] [address] [email or web address] TMJ disease (Primary Dx) Social History Tobacco Use Types [...] documented as of this encounter Results * CT 3D Reconstruction Face (08/09/2023 12:55 PM EDT) Anatomical Region Laterality Modality Face Computed Tomogra phy 08/13/2023 10:2 7 AM EDT Narrative 08/13/2023 2:32 PM EDT Please refer to the primary CT accession number [id number] for the full report indicating 3D images were created on an independent workstation and interpreted. Procedure Note Ray Harris MD - 08/13/2023 Please refer to the primary CT accession number [id number] for the fullreport indicating 3D images were created on an independent workstation andinterpreted. Etelvina Sears MD IMG CT Final Result documented in this encounter Visit Diagnoses Diagnosis TMJ disease- Primary Unspecified temporomandibular joint disorders TMJ disease Unspecified temporomandibular joint disorders documented in this encounter Care Teams Coin Collector Relationship Specialty Start Date End Date Etelvina Sears MD [address] [place] [address] PCP - General Internal Medicine 05/25/22 documented as of this encounter Additional Source Comments The information contained in this document represents components of the legal health record. It is not the complete legal health record.[facility]
--- OUTSIDE RECORDS SUMMARY | 2024-10-18 14:58 | XMS_ITS | Patient Health Record ---
Author Organization [facility] Address [address] [place] [address] Care Team Providers Care Solar Energy Installation Manager Name Role Phone Etelvina Sears Primary Care Provider Justino Quinn Unavailable [phone] Allergies Allergen (clinical drug ingredient) Drug/Non Drug [...] Status Risk Notes Problem Acquired hallux valgus (80223896) Hallux valgus (acquired), right foot (M20.11) Active confirmed Problem Acquired hammer toe of right foot (60674998495597 05) Other hammer toe(s) (acquired), right foot (M20.41) Active confirmed Problem Acquired hammer toe of left foot (47576347088020 03) Other hammer toe(s) (acquired), left foot (M20.42) Active confirmed Problem Pain in limb (20612560) Pain in unspecified foot (M79.673) Active confirmed Problem Rheumatoid arthritis (21183952) Rheumatoid arthritis involving multiple sites with positive rheumatoid factor (M05.79) Active confirmed Plan Of Treatment Pending Test Test Name Order Date X ray : Foot, left 3V 03/15/2015 20428, M2806-PNGNT/INJECT, JOINT/BURSA 0 04/02/2020 Insurance Providers Payer Name Payer Address Payer Phone Subscriber Number Group Number Insured Name Patient Relationship to Insured Coverage Start Date Coverage End Date Blue Benefits [address] [address] [place] [address] [id number] Marian Doran Self - patient is the [...]
--- OUTSIDE RECORDS SUMMARY | 2024-10-18 14:58 | XMS_ITS | Encounter Summary ---
Author Organization [facility] Address [address] [place] [address] Care Team Providers Care Food Service Kitchen Supervisor Name Role Phone Issac Wilson MD Primary Care Provider Frances Wood MD Primary Care Provider [facility] Issac Wilson MD Primary Care Provider Jeri Ramírez, Pcp Primary Care Provider Unavailabl e Reason for Visit * Reason Comments E-prescribe Rx Request Encounter Details Date Type Department Care Team Description 09/29/2016 Refill Adult Medicine [address] [address] Roscoe Strickland MD E-prescribe Rx Request Social [...] Payor: LIV[employer] / Plan: PPO $15 [employer] [id number] / Product Type: PPO [id number] documented in this encounter Plan of Treatment Not on file documented as of this encounter Visit Diagnoses Not on filedocumented in this encounter Care Teams Food Service Kitchen Supervisor Relationship Specialty Start Date End Date Issac Wilson MD PCP - General Internal Medicine 09/28/13 12/20/18 Frances Gloria MD PCP - General Internal Medicine 12/21/18 12/21/19 Issac Wilson MD PCP - General Internal Medicine 12/22/19 03/12/20 Eusebia Ramírez PCP - General Internal Medicine 03/13/20 documented as of this encounter
--- OUTSIDE RECORDS SUMMARY | 2024-10-18 14:58 | XMS_ITS | Encounter Summary ---
Author Organization [facility] Address [address] [facility] [address] [place] [address] Phone Care Team Providers Care Home Theater Specialist Name Role Phone Etelvina Sears MD Primary Care Provider [phone] Encounter Details Date Type Department Care Team ([facility] st Contact Info) Description 08/09/2023 Procedure Pass [facility] IMG 3DCTMR MG [address] [place] [address] Social History Tobacco Use Types Packs/Day Years [...] filedocumented in this encounter Care Teams Home Theater Specialist Relationship Specialty Start Date End Date Etelvina Sears MD [address] [place] [phone] PCP - General Internal Medicine 05/25/22 documented as of this encounter Additional Source Comments The information contained in this document represents components of the legal health record. It is not the complete legal health record.[facility]
--- OUTSIDE RECORDS SUMMARY | 2024-10-18 14:58 | XMS_ITS | Encounter Summary ---
Author Organization [facility] Address [address] [place] [address] Care Team Providers Care Cut Lace Machine Operator Name Role Phone Issac Wilson MD Primary Care Provider Frances Wood MD Primary Care Provider [facility] Issac Wilson MD Primary Care Provider Jeri Ramírez, Pcp Primary Care Provider Unavailjonatan e Encounter Details Date Type Department Care Team Description 08/20/2015 Refill Adult Medicine [address] [address] Issac Wilson MD Social History Tobacco Use [...] MCG tablet [Issac Wilson MD] Preferred pharmacy: [facility] [place] [address] [facility] Comment: Please send new scripts to pharmacy. No refills remaining. Thank you. Medication renewals requested in this message routed to other providers: folic acid (FOLVITE) 1 MG tablet [Brendon Gale MD] documented in this encounter Plan of Treatment Not on file documented as of this encounter Visit Diagnoses Not on filedocumented in this encounter Care Teams Cut Lace Machine Operator Relationship Specialty Start Date End Date Issac Wilson MD PCP - General Internal Medicine 09/28/13 12/20/18 Frances Gloria MD PCP - General Internal Medicine 12/21/18 12/21/19 Issac Wilson MD PCP - General Internal Medicine 12/22/19 03/12/20 [facility] Pcp PCP - General Internal Medicine 03/13/20 documented as of this encounter
--- OUTSIDE RECORDS SUMMARY | 2024-10-18 14:58 | XMS_ITS | Encounter Summary ---
Author Organization [facility] Address [address] [place] [address] Care Team Providers Care News Reporter Name Role Phone Roscoe Strickland MD Primary Care Provider Issac Barragan MD Primary Care Provider Frances Wood MD Primary Care Provider Issac Reynolds MD Primary Care Provider Jeri Ramírez, Pcp Primary Care Provider Miryam sherman Encounter Details Date Type Department Care Team Description 02/21/2012 Pt. Non Urgent Medical Question Adult Medicine [address] [address] Ezequiel West FNP [address] [place] [address] Social History Tobacco Use Types Packs/Day Years [...] on filedocumented in this encounter Care Teams News Reporter Relationship Specialty Start Date End Date Roscoe Strickland MD PCP - General 02/15/07 09/27/13 Issac Wilson MD PCP - General Internal Medicine 09/28/13 12/20/18 Frances Gloria MD PCP - General Internal Medicine 12/21/18 12/21/19 Issac Wilson MD PCP - General Internal Medicine 12/22/19 03/12/20 [facility], Pcp PCP - General Internal Medicine 03/13/20 documented as of this encounter
--- OUTSIDE RECORDS SUMMARY | 2024-10-18 14:58 | XMS_ITS | Encounter Summary ---
Author Organization [facility] Address [address] [place] [address] Phone Care Team Providers Care Auto Overhauler Name Role Phone Etevlina Sears MD Primary Care Provider [phone] Encounter Details Date Type Department Care Team (Late st Contact Info) Description 02/25/2023 Procedure Pass [facility] IMG 3DCTMR MG [address] [place] [address] Social History Tobacco Use Types Packs/Day Years [...] on filedocumented in this encounter Care Teams Auto Overhauler Relationship Specialty Start Date End Date Etelvina Sears MD [address] [place] [phone] PCP - General Internal Medicine 05/25/22 documented as of this encounter Additional Source Comments The information contained in this document represents components of the legal health record. It is not the complete legal health record.[facility]
--- OUTSIDE RECORDS SUMMARY | 2024-10-18 14:58 | XMS_ITS | Clinical Summary ---
Author Organization [facility] Address [address] [address] Phone Care Team Providers Care Cota Name Role Phone Etelvina Sears MD Primary Care Provider [phone] Allergies Active Allergy Reactions Criticality Noted Date Comments Etanercept Rash Low 11/20/2013 Infection increased Tofacitinib Other (See Comments) 09/24/2020 Elevated LFT's Medications citalopram (CELEXA) 20 MG tablet Take 1 tablet by mouth daily. 1 Active upadacitinib (RINVOQ) 15 mg tablet Take 1 tablet by mouth daily. Five days a week: Tuesdays, Wednesdays, Fridays, Saturdays, and Sundays. 1 Active levothyroxine (SYNTHROID, LEVOTHROID) 50 MCG tablet Take 50 mcg by mouth every morning. Active pantoprazole (PROTONIX) 40 MG tablet Take 40 mg by mouth daily. 3 Active cholecalciferol 400 unit tablet 3 Active rosuvastatin (CRESTOR) 5 MG tablet Take 1 tablet by mouth every morning. 4 Active albuterol 90 mcg/actuation inhaler Inhale 2 puffs into the lungs every 6 (six) hours as needed for wheezing. Active gabapentin (NEURONTIN) 100 MG capsule Take 1 capsule (100 mg total) by mouth 3 (three) times a day for 7 days. 21 capsule 4 Active acetaminophen (TYLENOL) 650 MG CR tablet Take 1 tablet (650 mg total) by mouth every 8 (eight) hours as needed for pain (specific location in comments). 28 tablet 4 Active HYDROmorphone (DILAUDID) 2 MG tablet Take 1 tablet (2 mg total) by mouth every 4 (four) hours as needed for pain (specific location in comments). Partial fill ok 8 tablet 4 Active Additional Information Patient not taking.Reported on 08/16/2023 erythromycin (ROMYCIN) ophthalmic ointment Place 0.5 inches into the right eye nightly at bedtime. 3.5 g 4 Active Active Problems Problem Noted Date Diagnosed Date TMJ disease 08/06/2023 Seropositive rheumatoid arthritis 06/05/2022 Overview (06/05/2022): Onset ~ 2003, RF positive. Treated with methotrexate and Remicade (failing response), changed to Humira ~2005 and combination helpful. 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 Off/on meds late 9197-6365. Enbrel stopped because of recurrent infections. Leflunomide caused skin rash, summer 2013. Orencia started 2013; methotrexate added 12/29 but stopped due to LFT elevations Xeljanz in place of Orencia Feb 2015 - helpful but further LFT elevations 02/03. Rinvoq in place of Xeljanz 01/2020 Hidradenitis suppurativa 10/24/2019 Overview (06/05/2022): Surgery - left axilla - 09/2020 Thoracic spondylosis 01/25/2019 Fatty liver 08/07/2016 Gastroesophageal reflux disease without esophagi tis 05/01/2016 Lung nodule 04/08/2016 Overview (06/05/2022): Known and stability documented in [address] Hyperlipidemia 09/13/2015 Urinary incontinence, mixed 12/11/2014 Overview (06/05/2022): Hx of bladder sling Globus sensation 02/23/2012 Overview (06/05/2022): Normal EGD 02/23/2012. Asthma, well controlled 08/16/2007 Hypothyroidism 06/18/2007 Encounters Date Type Department Care Team Description 08/31/2024 3:26 PM EDT - 08/31/2024 11:59 PM EDT Hospital En[place] [facility] senior accounting manager [address] [facility] [facility], [address]nd Floor, [address] [place] [address] Nick Reyes MD, DDS Discharge Disposition: Home or Self Care 08/31/2024 3:26 PM EDT - 08/31/2024 11:59 PM EDT Hospital Encounter [facility] senior accounting manager [address] [facility] [address] [facility], [address], [address] [place] [address] Nick Reyes MD, DDS Discharge Disposition: Home or Self Care 08/29/2024 Orders Only [facility] senior accounting manager [address] [facility] [address], [address], [address] [place] [address] Eliza Dietz Lillian Disorder of jaw (Primary Dx) from Last 3 Months Immunizations Immunization Administration Dates Next Due Hepatitis B Adult 08/24/2012,03/30/2012,02/23/19 13 INFLUENZA, SPLIT VIRUS, TRIV ALENT W/ PRESERVATIVE IM 11/15/2018,12/16/2017,10/26/2016,12/26,09/21/2014,10/12/2013 Influenza Quadrivalent MDCK Preservative Free IM 10/24/2019 PPD Test 09/15/2018, 5,08/05/2012,02/18 Pneumococcal polysaccharide PPSV23 07/20/2014 Tdap 10/05/2019,06/30/2011 Social History Tobacco Use Types Packs/Day Years Used Date Smoking Tobacco: Never Passive Smoke Exposure: Never Smokeless Tobacco: Never Tobacco Cessation:Counseling Given: Not Answered Alcohol Use Standard Drinks/Week Comments Yes 2 [...] Orientation Straight 05/25/2022 11 :42 AM EDT Last Filed Vital Signs Vital Sign Reading Time Taken Comments Blood Pressure 131/61 08/07/2023 7:40 AM EDT Pulse 58 08/07/2023 7:40 AM EDT Temperature 36.4 C (97.6 F) 08/07/2023 7:40 AM EDT Respiratory Rate 18 08/07/2023 7:40 AM EDT Oxygen Saturation 95% 08/07/2023 7:40 AM EDT Inhaled Oxygen Concentration - - Weight 90.7 kg (200 lb) 08/06/2023 6:20 AM EDT Height 165.1 cm (5' 5 ) 08/06/2023 6:20 AM EDT Body Mass Index 33.28 08/06/2023 6:20 AM EDT Plan of Treatment Health Maintenance Due Date Last Done Comments LIPID PANEL 1964 TSH LEVEL 1964 COVID-19 VACCINE (#1) 01/10/1969 DEPRESSION SCREENING 1976 HEPATITIS C SCREENING 01/10/1982 HIV ONE-TIME SCREENING (18-6 5 YEARS) 01/10/1982 ZOSTER VACCINES (1 of 2) 01/10/1983 SCREENING FOR DIABETES 01/10/1999 MAMMOGRAM 2004 COLOGUARD 01/10/2009 COLONOSCOPY 01/10/2009 COLORECTAL CANCER SCREENING 01/10/2009 FIT TEST 01/10/2009 FOBT 01/10/2009 SIGMOIDOSCOPY 01/10/2009 VIRTUAL COLONOSCOPY 01/10/2009 PNEUMOCOCCAL VACCINES (50+ years) (2 of 2 - PCV) 07/21/2015 07/20/2014 PAP SMEAR 07/04/2021 07/04/2018 RSV VACCINE (1 - Risk 60-74 years 1-dose series) 2024 Adult Td,Tdap Booster 10/04/2029 10/05/2019 , 06/30/2011 SMOKING STATUS SCREENING (On ce After 26 Yrs) Completed 08/26/2023 HEPATITIS A VACCINES Aged Out No long er eligible based on patient's age to complete this topic HIB VACCINES Aged Out No longer eligi ble based on patient's age to complete this topic MENINGOCOCCAL VACCINES (ACWY) Aged Out No longer eligible based on patient's age to complete this topic MENINGOCOCCAL VACCINES (B) Aged Out N o longer eligible based on patient's age to complete this topic Medical Devices Implanted Type Area Photographic Lithographer Device Identifier Shelf Expiration Date Model / Serial / Lot Tmj Unilateral Implant Pt Andreea Implanted:Qty: 1 on 08/06/2023 by Nick Reyes MD, DDS at [facility] Right: Face 03/15/2025 [id number] / / [id number] Procedures Procedure Name Priority Date/Time Associated Diagnosis Comments POINT OF CARE DENTAL Routine 08/31/2024 3:26 PM EDT Disorder of jaw from Last 3 Months Results * Point of Care, Dental (08/31/2024 3:26 PM EDT) Narrative [facility] INTER[facility] - 08/31/2024 3:[address] dental scans were provided during this procedure. us Nick Reyes MD, DDS [facility] POINT OF CARE EXAMS Fi nal Result [facility] INTERFACES from Last [address] [place] [address] [place] [address] [place] [address] [facility] [place] [address] [facility] Advance Directives For more information, please contact: [phone] (9AM - 5PM [facility], Wednesday-Wednesday) * Full Code (Latest Code Status on File) Date Activated Date Inactivated Comments 08/06/2023 3:40 PM Question Answer Comments Code Status Confirmed With: Patient * Full Code Date Activated Date Inactivated Comments 08/06/2023 6:30 AM 08/06/2023 3:40 PM Question Answer Comments Code Status Confirmed With: Patient * Full Code Date Activated Date Inactivated Comments 08/21/2022 6:00 AM 08/06/2023 6:30 AM Question Answer Comments Code Status Confirmed With: Patient Care Teams Cota Relationship Specialty Start Date End Date Etelvina Sears MD [address] [place] [phone] PCP - General Internal Medicine 05/25/22 Additional Source Comments The information contained in this document represents components of the legal health record. It is not the complete legal health record.[facility]
--- OUTSIDE RECORDS SUMMARY | 2024-10-18 14:58 | XMS_ITS | Encounter Summary ---
Author Organization [facility] Address [address] [place] [address] Care Team Providers Care Account Executive Trainee Name Role Phone Roscoe Strickland MD Primary Care Provider Issac Barragan MD Primary Care Provider Frances Wood MD Primary Care Provider Issac Reynolds MD Primary Care Provider Jeri Ramírez Pcp Primary Care Provider Miryam sherman Encounter Details Date Type Department Care Team Description 05/26/2013 [facility] Medical Records [address] [place] [address] Carlos Alberto Knox MD Social History Tobacco [...] on filedocumented in this encounter Care Teams Account Executive Trainee Relationship Specialty Start Date End Date Roscoe [...]
--- OUTSIDE RECORDS SUMMARY | 2024-10-18 14:58 | XMS_ITS | Encounter Summary ---
Author Organization [facility] Address [address] [place] [address] Care Team Providers Care Merchandise Director Name Role Phone Issac Wilson MD Primary Care Provider Frances Wood MD Primary Care Provider [facility] Issac Wilson MD Primary Care Provider Jeri Ramírez Pcp [facility] Reason for Visit * Reason Onset Date Comments My Chart Appointment 11/03/2017 dizziness 11/03/2017 Headache 11/03/2017 Encounter Details Date Type Department Care Team Description 11/03/2017 Telephone Adult Medicine [address] [address] Issac Wilson MD My Chart Appointment; dizziness; [...] on filedocumented in this encounter Care Teams Merchandise Director Relationship Specialty Start Date End Date Issac Wilson MD PCP - General Internal Medicine 09/28/13 12/20/18 Frances Gloria MD PCP - General Internal Medicine 12/21/18 12/21/19 Issac Wilson MD PCP - General Internal Medicine 12/22/19 [facility] 03/13/20 documented as of this encounter
[2024-10-19 08:24] LABS: HBS Num1 0.69 mIU/mL (0-7.99); HBc Num1 0.06 S/CO (0.00-0.79); HBsAGNum1 0.35 S/CO (0.00-0.99); Hepatitis A Antibody IgM 0.15 Index (0-0.79); Hepatitis B Surface Antigen Negative (Negative); ~HepC Num1 0.08 S/CO (0.00-0.79); ~Hepatitis A Antibody IgM Nonreactive (Nonreactive); ~Hepatitis B Surface Antibody NONREACTIVE (Nonreactive); ~Hepatitis C Antibody Nonreactive (Nonreactive)
[2024-10-21 08:38] LABS: TS Negative Control Passed; TS Panel A 0; TS Panel B 1; TS Positive Control Passed; TSpotTB Negative (Negative)
[2024-10-23 06:19] LABS: Vitamin D 25-OH, D2 <4 ng/mL; Vitamin D 25-OH, D3 28 ng/mL; Vitamin D 25-OH, Total 28 ng/mL (30-100)
== END 2024-10-18 12:27 | disposition home or self-care (01) ==
LOC: HO.LAB 12:26
PROVIDERS: Absent Provider Internal Medicine; PCP Internal Medicine; Visit Provider Student in an Organized Health Care Education/Training Program
DX: Z11.1 Encounter for screening for respiratory tuberculosis (principal); R73.01 Impaired fasting glucose; E78.00 Pure hypercholesterolemia, unspecified; M06.09 Rheumatoid arthritis without rheumatoid factor, multiple sites; E55.9 Vitamin D deficiency, unspecified
CPT/HCPCS: 36415; 80053; 80061; 81001; 81003; 82306; 83036; 85025; 85652; 86140; 86481; 86704; 86706; 86709; 86803; 87340

== ENCOUNTER → 2024-10-27 20:30 | Outpatient (REF) | payer BC, SELFPAY ==
--- OUTSIDE RECORDS SUMMARY | 2022-06-05 10:13 | XMS_ITS | Encounter Summary ---
Author Organization [facility] Address [address] [place] [address] Phone Care Team Providers Care Counter Stacker Name Role Phone Etelvina Sears MD Primary Care Provider [phone] Encounter Details Date Type Department Care Team (Late st Contact Info) Description 06/05/2022 10:13 AM EDT Hospital Encounter [facility] [address] [place] [address] Sierra Khan CNP [address] [place] [phone] [email or web address] Social History Tobacco Use Types Packs/Day Years [...] abnormality. IMPRESSION: Normal chest. us Sierra Khan LAMINATION ASSEMBLER IMG XR CHEST Final Resul t documented in this encounter Visit Diagnoses Not on filedocumented in this encounter Care Teams Counter Stacker Relationship Specialty Start Date End Date Etelvina Sears MD [address] [place] [address] [place] [phone] PCP - General Internal Medicine 05/25/22 documented as of this encounter Additional Source Comments The information contained in this document represents components of the legal health record. It is not the complete legal health record.[facility]
--- OUTSIDE RECORDS SUMMARY | 2022-06-14 09:43 | XMS_ITS | Encounter Summary ---
Author Organization [facility] Address [address] [place] [address] Phone Care Team Providers Care Cloud Systems Architect Name Role Phone Etelvina Sears MD Primary Care Provider [phone] Encounter Details Date Type Department Care Team (Late st Contact Info) Description 06/14/2022 9:43 AM EDT Hospital Encounter [facility] [address] [place] [address] Jesse Delatorre PA-C [address] [place] [phone] [email or web address] Social History Tobacco Use Types [...] on filedocumented in this encounter Care Teams Cloud Systems Architect Relationship Specialty Start Date End Date Etelvina Sears MD [address] [place] [address] PCP - General Internal Medicine 05/25/22 documented as of this encounter Additional Source Comments The information contained in this document represents components of the legal health record. It is not the complete legal health record.[facility]
--- OUTSIDE RECORDS SUMMARY | 2023-07-02 14:30 | XMS_ITS | Encounter Summary ---
Author Organization [facility] Address [address] [facility] [address] [place] [address] Phone Care Team Providers Care Target Man Name Role Phone Etelvina Sears MD Primary Care Provider [phone] Encounter Details Date Type Department Care Team (Late st Contact Info) Description 07/02/2023 2:30 PM EDT Hospital Encounter [facility] [address] [place] [phone] Jesse Delatorre PA-C [address] [place] [phone] [email or web address] Social History Tobacco Use Types [...] on filedocumented in this encounter Care Teams Target Man Relationship Specialty Start Date End Date Etelvina Sears MD [address] [place] [address] [place] [address] [phone] PCP - General Internal Medicine 05/25/22 documented as of this encounter Additional Source Comments The information contained in this document represents components of the legal health record. It is not the complete legal health record.[facility]
--- OUTSIDE RECORDS SUMMARY | 2024-10-27 21:32 | XMS_ITS | Encounter Summary ---
Author Organization [facility] Address [address] [facility] [address] [place] [address] Phone Care Team Providers Care Supervisor Cutting And Sewing Room Name Role Phone Etelvina Sears MD Primary Care Provider Encounter Details Date Type Department Care Team ([facility] st Contact Info) Description 08/09/2023 Procedure Pass [facility] IMG 3DCTMR MG [address] [place] [address] Social History Tobacco Use Types Packs/Day Years [...] filedocumented in this encounter Care Teams Supervisor Cutting And Sewing Room Relationship Specialty Start Date End Date Etelvina Sears MD [address] [place] [phone] PCP - General Internal Medicine 05/25/22 documented as of this encounter Additional Source Comments The information contained in this document represents components of the legal health record. It is not the complete legal health record.[facility]
--- OUTSIDE RECORDS SUMMARY | 2024-10-27 21:32 | XMS_ITS | Encounter Summary ---
Author Organization [facility] Address [address] [facility] [address] [place] [address] Phone Care Team Providers Care Hearing Aid Fitter Name Role Phone Etelvina Sears MD Primary Care Provider [phone] Encounter Details Date Type Department Care Team ([facility] st Contact Info) Description 08/06/2023 Procedure Pass [facility] PERIOPERATIVE DEPT [address] [place] [phone] Social History Tobacco Use Types Packs/Day [...] filedocumented in this encounter Care Teams Hearing Aid Fitter Relationship Specialty Start Date End Date Etelvina Sears MD [address] [place] [phone] PCP - General Internal Medicine 05/25/22 documented as of this encounter Additional Source Comments The information contained in this document represents components of the legal health record. It is not the complete legal health record.[facility]
--- OUTSIDE RECORDS SUMMARY | 2024-10-27 21:32 | XMS_ITS | Encounter Summary ---
Author Organization [facility] Address [address] [facility] [address] [place] [address] Phone Care Team Providers Care Parts Person Name Role Phone Etelvina Sears MD Primary Care Provider [phone] Encounter Details Date Type Department Care Team (Late st Contact Info) Description 08/21/2022 Procedure Pass [facility] [place] [id number] Social History Tobacco Use Types Packs/Day Years [...] on filedocumented in this encounter Care Teams Parts Person Relationship Specialty Start Date End Date Etelvina Sears MD [address] [place] [phone] PCP - General Internal Medicine 05/25/22 documented as of this encounter Additional Source Comments The information contained in this document represents components of the legal health record. It is not the complete legal health record.[facility]
--- OUTSIDE RECORDS SUMMARY | 2024-10-27 21:32 | XMS_ITS | Patient Health Record ---
[facility] Address [address] [place] [address] Care Team Providers Care Commercial Representative Name Role Phone Etelvina Sears Primary Care Provider Justino Quinn Unavailable [phone] Allergies Allergen (clinical drug ingredient) Drug/Non Drug [...] Status Risk Notes Problem Acquired hallux valgus (26525456) Hallux valgus (acquired), right foot (M20.11) Active confirmed Problem Acquired hammer toe of right foot (89921722382214 05) Other hammer toe(s) (acquired), right foot (M20.41) Active confirmed Problem Acquired hammer toe of left foot (56599545906518 03) Other hammer toe(s) (acquired), left foot (M20.42) Active confirmed Problem Pain in limb (05105709) Pain in unspecified foot (M79.673) Active confirmed Problem Rheumatoid arthritis (47779985) Rheumatoid arthritis involving multiple sites with positive rheumatoid factor (M05.79) Active confirmed Plan Of Treatment Pending Test Test Name Order Date X ray : Foot, left 3V 03/15/2015 96920, [id number]/INJECT, JOINT/BURSA 0 04/02/2020 Insurance Providers Payer Name Payer Address Payer Phone Subscriber Number Group Number Insured Name Patient Relationship to Insured Coverage Start Date Coverage End Date Blue Benefits [address] [address] [place] [address] [id number] Marian Doran Self - patient is the [...]
--- OUTSIDE RECORDS SUMMARY | 2024-10-27 21:32 | XMS_ITS | Clinical Summary ---
Author Organization [facility] Address [address] [place] [address] Care Team Providers Care Customer Acquisition Specialist Name Role Phone Unavailable Primary Care [...] abscesses due to MRSA. Off/on meds late 4126-3547. Enbrel stopped because of recurrent infections. Leflunomide [...] RESULTING AGENCY - 07/06/2018 4:50 PM EDT [id number] THINPREP PAP, IMAGED: NEGATIVE FOR SQUAMOUS INTRAEPITHELIAL [...]
--- OUTSIDE RECORDS SUMMARY | 2024-10-27 21:32 | XMS_ITS | Encounter Summary ---
Author Organization [facility] Address [address] [place] [address] Phone Care Team Providers Care Casino Slot Supervisor Name Role Phone Etelvina Sears MD Primary Care Provider [phone] Encounter Details Date Type Department Care Team (Late st Contact Info) Description 06/17/2022 Procedure Pass [facility] [address] [place] [address] Social History Tobacco Use Types Packs/Day Years [...] on filedocumented in this encounter Care Teams Casino Slot Supervisor Relationship Specialty Start Date End Date Etelvina Sears MD [address] [place] [address] PCP - General Internal Medicine 05/25/22 documented as of this encounter Additional Source Comments The information contained in this document represents components of the legal health record. It is not the complete legal health record.[facility]
--- OUTSIDE RECORDS SUMMARY | 2024-10-27 21:32 | XMS_ITS | Encounter Summary ---
Author Organization [facility] Address [address] [facility] [address] [place] [address] Phone Care Team Providers Care Outside Sales Professional Name Role Phone Etelvina Sears MD Primary Care Provider [phone] Encounter Details Date Type Department Care Team ([facility] st Contact Info) Description 02/25/2023 Procedure Pass [facility] IMG 3DCTMR MG [address] [place] [address] Social History Tobacco Use Types Packs/Day Years [...] on filedocumented in this encounter Care Teams Outside Sales Professional Relationship Specialty Start Date End Date Etelvina Sears MD [address] [place] [phone] PCP - General Internal Medicine 05/25/22 documented as of this encounter Additional Source Comments The information contained in this document represents components of the legal health record. It is not the complete legal health record.[facility]
--- OUTSIDE RECORDS SUMMARY | 2024-10-27 21:32 | XMS_ITS | Encounter Summary ---
Author Organization [facility] Address [address] [facility] [address] [place] [address] Phone Care Team Providers Care Secondary History Teacher Name Role Phone Etelvina Sears MD Primary Care Provider [phone] Encounter Details Date Type Department Care Team (Late st Contact Info) Description 02/25/2023 Procedure Pass [facility], [place] [address] [facility], 2nd Floor, [address] [place] [address] Social History Tobacco Use Types Packs/Day Years [...] on filedocumented in this encounter Care Teams Secondary History Teacher Relationship Specialty Start Date End Date Etelvina Sears MD [address] [facility] [address] [place] [phone] PCP - General Internal Medicine 05/25/22 documented as of this encounter Additional Source Comments The information contained in this document represents components of the legal health record. It is not the complete legal health record.[facility]
--- OUTSIDE RECORDS SUMMARY | 2024-10-27 21:32 | XMS_ITS | Encounter Summary ---
Author Organization [facility] Address [address] [facility] [address] [place] [address] Phone Care Team Providers Care Marshmallow Machine Worker Name Role Phone Etelvina Sears MD Primary Care Provider [phone] Encounter Details Date Type Department Care Team (Late st Contact Info) Description 08/06/2023 Procedure Pass [facility], [place] [address] [facility] 6th [place] [address] Social History Tobacco Use Types Packs/Day Years [...] on filedocumented in this encounter Care Teams Marshmallow Machine Worker Relationship Specialty Start Date End Date Etelvina Sears MD [address] [facility] [address] [place] [phone] PCP - General Internal Medicine 05/25/22 documented as of this encounter Additional Source Comments The information contained in this document represents components of the legal health record. It is not the complete legal health record.[facility]
--- OUTSIDE RECORDS SUMMARY | 2024-10-27 21:32 | XMS_ITS | Clinical Summary ---
Author Organization [facility] Address [address] [address] Phone Care Team Providers Care Saw Tailer Name Role Phone Etelvina Sears MD Primary Care Provider [phone] Allergies Active Allergy Reactions Criticality Noted Date [...] abscesses due to MRSA. Off/on meds late 9709-1197. Enbrel stopped because of recurrent infections. Leflunomide [...] - 08/31/2024 11:59 PM EDT Hospital Encounter [facility] fiber optic assembly worker [address] [facility], 2[address], [address] [place] [address] Nick Reyes MD, DDS Discharge Disposition: Home or Self Care 08/31/2024 3:26 PM EDT - 08/31/2024 11:59 PM EDT Hospital Encounter [facility] fiber optic assembly worker [address] [facility], [address], [address] [place] [address] Nick Reyes MD, DDS Discharge Disposition: Home or Self Care 08/29/2024 Orders Only [facility] fiber optic assembly worker [address] [facility], [address], [address] [place] [address] Eliza Dietz Lillian Disorder of jaw (Primary [...] HEPATITIS C SCREENING 01/10/1982 HIV ONE-TIME SCREENING (18-65 YEARS) 01/10/1982 ZOSTER VACCINES (1 of 2) 01/10/1983 SCREENING FOR DIABETES 01/10/1999 MAMMOGRAM 2004 COLOGUARD 01/10/2009 COLONOSCOPY 01/10/2009 COLORECTAL CANCER SCREENING 01/10/2009 FIT TEST 01/10/2009 FOBT 01/10/2009 SIGMOIDOSCOPY 01/10/2009 VIRTUAL COLONOSCOPY 01/10/2009 PNEUMOCOCCAL VACCINES (50+ years) (2 of 2 - PCV) 07/21/2015 07/20/2014 PAP SMEAR 07/04/2021 07/04/2018 RSV VACCINE (1 - Risk 60-74 years 1-dose series) 2024 INFLUENZA VACCINE (#1) 2024 0, 11/15/2018, 12/16/2017, Additional history exists Adult Td,Tdap Booster 10/04/2029 10/05/2019, 012 SMOKING STATUS SCREENING (Once After 26 Yrs) Completed 08/26/2023 HEPATITIS A [...] this topic Medical Devices Implanted Type Area Elevator Repairer Apprentice Device Identifier Shelf Expiration Date Model / Serial / Lot Tmj Unilateral Implant Pt Viets Implanted:Qty: 1 on 08/06/2023 by Nick Reyes MD, DDS at [facility] Right: Face 03/15/2025 [id number] / / [id number] Procedures Procedure Name Priority Date/Time Associated Diagnosis Comments POINT OF CARE DENTAL Routine 08/31/2024 3:26 PM EDT Disorder of jaw from Last 3 Months Results * Point of Care, Dental (08/31/2024 3:26 PM EDT) Narrative [facility] IMG INTERFACES - 08/31/2024 3:[address] dental scans were provided during this procedure. us Nick Reyes MD, DDS IMG POINT OF CARE EXAMS Fi nal Result [facility] IMG INTERFACES from Last 3 Months Insurance Biogenic Reagents Biogenic Reagents Biogenic [place] [address] [place] [address] [place] [address] Advance Directives For more information, please contact: [phone] (9AM - 5PM [facility], Wednesday-Wednesday) * Full Code (Latest Code Status [...] Code Status Confirmed With: Patient Care Teams Saw Tailer Relationship Specialty Start Date End Date Etelvina Sears MD [address] [place] [phone] PCP - General Internal Medicine 05/25/22 Additional Source Comments The information contained in this document represents components of the legal health record. It is not the complete legal health record.[facility]
--- OUTSIDE RECORDS SUMMARY | 2024-10-27 21:32 | XMS_ITS | Encounter Summary ---
Author Organization [facility] Address [address] [facility] [address] [place] [address] Phone Care Team Providers Care Tractor Driver Name Role Phone Etelvina Sears MD Primary Care Provider [phone] Reason for Referral * MRI/CAT Scan - Closed Specialty Diagnoses / Procedures Referred By Contac t Referred To Contact Radiology Diagnoses TMJ disease Procedures CT 3D Reconstruction Face CHG 3D RENDERING W/INTERP&POSTPROC DIFF WORK STATION Gabe Soriano MD Phone: tel: [email or web address] Referral ID Status Reason Start Date Expiration Date Visits Re quested Visits Authorized [id number] Closed 08/09/2023 1 1 Encounter Details Date Type Department Care Team (Late st Contact Info) Description 08/09/2023 Ancillary Orders [facility] Steffi ALY [address] [facility], 6th [place] [address] Gabe Soriano MD [address] [place] [address] [email or web address] TMJ disease (Primary Dx) Social History Tobacco [...] refer to the primary CT accession number [id number] for the full report indicating 3D images were created on an independent workstation and interpreted. Procedure Note Ray Harris MD - 08/13/2023 Please refer to the primary CT accession number [id number] for the fullreport indicating 3D images were created on an independent workstation andinterpreted. Etelvina Sears MD IMG CT Final Result documented in this encounter Visit Diagnoses Diagnosis TMJ disease- Primary Unspecified temporomandibular joint disorders TMJ disease Unspecified temporomandibular joint disorders documented in this encounter Care Teams Tractor Driver Relationship Specialty Start Date End Date Etelvina Sears MD [address] [place] [address] PCP - General Internal Medicine 05/25/22 documented as of this encounter Additional Source Comments The information contained in this document represents components of the legal health record. It is not the complete legal health record.[facility]
--- OUTSIDE RECORDS SUMMARY | 2024-10-27 21:32 | XMS_ITS | Encounter Summary ---
Author Organization [facility] Address [address] [facility] [address] [place] [address] Phone Care Team Providers Care Glove Cutter Name Role Phone Etelvina Sears MD Primary Care Provider [phone] Encounter Details Date Type Department Care Team ([facility] st Contact Info) Description 06/17/2022 Procedure Pass [facility] [address] [facility], 6th [place] [address] Social History Tobacco Use Types Packs/Day Years [...] on filedocumented in this encounter Care Teams Glove Cutter Relationship Specialty Start Date End Date Etelvina Sears MD [address] [place] [address] PCP - General Internal Medicine 05/25/22 documented as of this encounter Additional Source Comments The information contained in this document represents components of the legal health record. It is not the complete legal health record.[facility]
--- OUTSIDE RECORDS SUMMARY | 2024-10-27 21:32 | XMS_ITS | Encounter Summary ---
Author Organization [facility] Address [address] [facility] [address] [place] [address] Phone Care Team Providers Care Vb Net Programmer Name Role Phone Etelvina Sears MD Primary Care Provider [phone] Encounter Details Date Type Department Care Team (Late st Contact Info) Description 12/10/2022 Procedure Pass MRI, [facility] [address] [place] [address] Social History Tobacco Use Types [...] on filedocumented in this encounter Care Teams Vb Net Programmer Relationship Specialty Start Date End Date Etelvina Sears MD [address] [place] [address] PCP - General Internal Medicine 05/25/22 documented as of this encounter Additional Source Comments The information contained in this document represents components of the legal health record. It is not the complete legal health record.[facility]
== END ==
LOC: HO.SL 20:30
PROVIDERS: PCP Internal Medicine; Visit Provider Physician Assistant Medical
DX: Z13.89 Encounter for screening for other disorder (principal)

== ENCOUNTER → 2024-10-27 21:28 | Outpatient (BNV) | payer BC, SELFPAY | PROVIDERS: PCP Internal Medicine; Visit Provider Psychiatry & Neurology Neurology | DX: R40.0 Somnolence (principal) | CPT/HCPCS: 95810 ==

== ENCOUNTER 2024-11-23 05:58 | Outpatient (REF) | payer BC, SELFPAY ==
[2024-11-23 08:13] LABS: Alanine Aminotransferase 60 U/L (0-31); Albumin Level 4.6 g/dL (3.5-5.0); Alkaline Phosphatase 88 U/L (39-117); Anion Gap 13 (12-20); Aspartate Amino Transferase 44 U/L (5-31); Blood Urea Nitrogen 15 mg/dL (9-16); Calcium 9.7 mg/dL (8.4-10.2); Carbon Dioxide 25 mmol/L (22-29); Chloride 109 mmol/L (96-108); Cholesterol 195 mg/dL (<200); Estimated Glomerular Filt Rate > 60; HDL Cholesterol 55 mg/dL (>40); Potassium 4.6 mmol/L (3.3-5.1); Sodium 142 mmol/L (135-145); Total Protein 7.6 g/dL (6.5-8.0); Triglycerides 133 mg/dL (<150)
[2024-11-23 08:20] LABS: Free T4 (Free Thyroxine) 0.76 ng/dL (0.71-1.85); Thyroid Stimulating Hormone 2.11 uIU/mL (0.32-4.0)
== END 2024-11-23 05:59 | disposition home or self-care (01) ==
LOC: HO.LAB 05:58
PROVIDERS: PCP Internal Medicine; Visit Provider Internal Medicine
DX: K21.9 Gastro-esophageal reflux disease without esophagitis (principal); E78.00 Pure hypercholesterolemia, unspecified
CPT/HCPCS: 36415; 80053; 80061; 84439; 84443

== ENCOUNTER 2024-12-08 11:54 | Outpatient (AMB) | payer BC, SELFPAY ==
--- OUTSIDE RECORDS SUMMARY | 2022-06-05 10:13 | XMS_ITS | Encounter Summary ---
Author Organization [facility] Address [address] [facility] [address] [place] [address] Phone Care Team Providers Care Video Operator Name Role Phone Etelvina Sears MD Primary Care Provider [phone] Encounter Details Date Type Department Care Team (Late st Contact Info) Description 06/05/2022 10:13 AM EDT Hospital Encounter [facility] [address] [place] [address] Sierra Khan CNP [address] [place] [phone] [email or web address] Social History Tobacco Use Types Packs/Day Years [...] abnormality. IMPRESSION: Normal chest. us Sierra Khan VIDEO CONTROL ENGINEER IMG XR CHEST Final Resul t documented in this encounter Visit Diagnoses Not on filedocumented in this encounter Care Teams Video Operator Relationship Specialty Start Date End Date Etelvina Sears MD [address] [place] [address] [place] [phone] PCP - General Internal Medicine 05/25/22 documented as of this encounter Additional Source Comments The information contained in this document represents components of the legal health record. It is not the complete legal health record.[facility]
--- OUTSIDE RECORDS SUMMARY | 2022-06-14 09:43 | XMS_ITS | Encounter Summary ---
Author Organization [facility] Address [address] [place] [address] Phone Care Team Providers Care Stereotype Caster Name Role Phone Etelvina Sears MD Primary Care Provider [phone] Encounter Details Date Type Department Care Team (Late st Contact Info) Description 06/14/2022 9:43 AM EDT Hospital Encounter [facility] [address] [place] [phone] Jesse Delatorre PA-C [address] [place] [phone] [email or web address] Social History Tobacco Use Types Packs/Day Years [...] on filedocumented in this encounter Care Teams Stereotype Caster Relationship Specialty Start Date End Date Etelvina Sears MD [address] [place] [address] PCP - General Internal Medicine 05/25/22 documented as of this encounter Additional Source Comments The information contained in this document represents components of the legal health record. It is not the complete legal health record.[facility]
--- OUTSIDE RECORDS SUMMARY | 2023-07-02 14:30 | XMS_ITS | Encounter Summary ---
Author Organization [facility] Address [address] [facility] [address] [place] [address] Phone Care Team Providers Care Internet Marketing Coordinator Name Role Phone Etelvina Sears MD Primary Care Provider [phone] Encounter Details Date Type Department Care Team (Late st Contact Info) Description 07/02/2023 2:30 PM EDT Hospital Encounter [facility] [address] [place] [phone] Jesse Delatorre PA-C [address] [place] [phone] [email or web address] Social History Tobacco Use Types [...] on filedocumented in this encounter Care Teams Internet Marketing Coordinator Relationship Specialty Start Date End Date Etelvina Sears MD [address] [place] [address] [place] [address] [phone] PCP - General Internal Medicine 05/25/22 documented as of this encounter Additional Source Comments The information contained in this document represents components of the legal health record. It is not the complete legal health record.[facility]
--- NOTE | 2024-12-08 12:18 | A.OFFVIS_ITS ---
Vital Signs 12/08/24 12:19 Height 5 ft 5.5 in Weight 194 lb BMI 31.8 BP 102/68 Blood Pressure Location Rt brachial Position Sitting Pulse 54 Pulse Source Pulse Oximeter Pulse Oximetry (%) 99 Oxygen Delivery Method Room Air Intake Visit Reasons: 3 month F/U Intake Note: Follow up care - Sleep study results Final Expense Agent Required: No Accompanied by: Self / Same As Patient Allergies etanercept (From ENBREL) Allergy (Intermediate, Verified 12/08/24 12:19) RASH tofacitinib (From Xeljanz) Adverse Reaction (Intermediate, Verified 12/08/24 12:19) high LFT HPI Comments Details: 59 year old female with RA referred to us for evaluation of hypersomnia by her pcp. PSG shows no evidence of FLOWER, AHI is <2 the lowest O2 desaturation was 86% with an average of 92%. Labs reviewed with patient today are normal. Her LFTS are elevated as she is on therapy with Rinvoq for RA 5x/wk. PMH c/w R. mandible reconstruction due to avascular necrosis in 2023, she sees Dr. Reyes at [facility]. She is chronically fatigued and spaces out through the day. She falls asleep at her desk during work. She goes to bed at 9:30pm to 11:30pm and has difficulty falling asleep. She wakes up 2x for the bathroom and has multiple arousals through the night. She snores loudly and has GERD managed with pantoprazole.She has an oral appliance for bruxism though it is not a somnoguard, and continues to snore. Her mood can be irritable though managed with citalopram and improving now. Her memory is stable. 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 She taked a daily calcium supplement with vit D and is trying to lose weight. She walks daily, and swims when she if able. [facility] Medical History UTI (urinary tract infection) Osteopenia Pneumonia Elevated transaminase level Long-term use of immunosuppressant medication COVID-19 vaccine administered Hidradenitis suppurativa of left axilla Urge incontinence Hypercholesterolemia MRSA infection GERD (gastroesophageal reflux disease) Rheumatoid arthritis Hypothyroid Surgical History TMJ (sprain of temporomandibular joint) History of esophagogastroduodenoscopy (EGD) Hx of colonoscopy History of eye surgery Ulnar neuropathy at elbow of left upper extremity Plantar fasciitis, bilateral H/O tubal ligation Hx of tonsillectomy Inguinal hernia Family History Mother Myocardial infarct Father Lung cancer Paternal Uncle Bladder cancer Paternal Aunt Stomach cancer Maternal Uncle Myocardial infarct Social History Housing: House Are you a primary acute care certified nursing assistant to a significant other at home: No Do you presently have visiting nurse or other home services: No Alcohol intake: current Alcohol intake frequency: a few times a month Alcohol type: wine and hard liquor Comment: 3-4 x a month glass of wine Patient Tobacco Use Status: Never used Tobacco e-Cigarette/Vaping Use: Never Used Second Hand Smoke Exposure: No Advance Directives Date on File: 09/17/20 service: No Current occupational status: employed 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, 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 Cognitive needs: No Hearing needs: No Vision needs: Yes Physical Exam Vital Signs: Last Vital Signs Pulse 54 12/08/24 12:19 BP 102/68 12/08/24 12:19 Pulse Ox 99 12/08/24 12:19 Oxygen Delivery Method Room Air 12/08/24 12:19 BMI result Body Mass Index 31.8 Const General: cooperative, comfortable and no acute distress Orientation/consciousness: patient oriented x3 HEENT Face and sinus: Yes face symmetric Throat: Yes other ([place]pti score is 3) Eyes Pupils: Equal, round and reactive pupils present Neck Neck: Yes full ROM Resp Effort & Inspection: normal respiratory effort and able to speak in complete sentences Neuro General: patient oriented x3 and moves all extremities Cranial nerves: Yes Equal, round and reactive pupils present, Yes Normal accommodation reflex present, Yes Normal facial strength present, Yes Midline tongue present, Yes Ability to bilaterally rotate head present and Yes Ability to bilaterally elevate shoulders present Cognition (Neuro): normal cognition Gait exam (Neuro): Normal gait present Motor exam (neuro): 5/5 motor strength present throughout and Normal motor muscle tone present throughout Psych Appearance: grossly normal Mental Status: mental status grossly normal Attitude: cooperative Results Reviewed Results Reviewed: PSG shows no evidence of FLOWER, AHI is <2 the lowest O2 desaturation was 86% with an average of 92%. No limb movement disorders, she has soft to moderate snoring. Assessment & Plan Assessment & Plan (1) Hypersomnia: Code(s): G47.10 - Hypersomnia, unspecified Category: Medical (2) Loud snoring: Code(s): R06.83 - Snoring Category: Medical (3) Bruxism, sleep-related: Code(s): G47.63 - Sleep related bruxism Category: Medical (4) Excessive daytime sleepiness: Code(s): G47.19 - Other hypersomnia Category: Medical Plan PSG reviewed with pt, no evidence of FLOWER or limb movement disorders. Snoring soft to moderate will refer to sleep dentistry for an evaluation an need for oral appliance, as she has a mouth guard currently which is helpful for bruxism, however does not adjust the lower jaw to allow for correction of elimination snoring. Can offer pt. Melatonin or Ambien to help with sleep difficulties. Weight loss, continue to lose weight, swim, diet and exercise daily as tolerable due to knee pain. Labs r/o nutritional deficiencies reviewed with pt today. F/U in 6 months Orders: Referrals Dentistry Referral G47.63 - Sleep related bruxism, R06.83 - Snoring Patient Instructions: Sleep Hygiene provided: set a scheduled bedtime and wake time to help regulate the circadian rhythm and balance the release of pituitary hormones. Sleep in a dark room, temperatures below 68 degrees, and no devices n bed. Limit caffeinated products 6 hours prior to bed, and limit fluids 2-4 hours prior to bed. Gentle night yoga, diffusing essential oils, and playing soft music can be relaxing. Coding Level of Care Code Est Pt Level 4 (50617) Diagnoses Hypersomnia G47.10 Loud snoring R06.83 Bruxism, sleep-related G47.63 Excessive daytime sleepiness G47.19
[2024-12-08 12:19] VITALS: BP 102/68; PULSE 54; O2SAT 99; BMI 31.8
--- OUTSIDE RECORDS SUMMARY | 2024-12-08 14:10 | XMS_ITS | Clinical Summary ---
Author Organization [facility] Address [address] [address] Phone Care Team Providers Care Hand Suture Winder Name Role Phone Etelvina Sears MD Primary Care Provider [phone] Allergies Active Allergy Reactions Criticality Noted Date [...] abscesses due to MRSA. Off/on meds late 8202-3364. Enbrel stopped because of recurrent infections. Leflunomide [...] 02/23/2012. Asthma, well controlled 08/16/2007 Hypothyroidism 06/18/2007 Immunizations Immunization Administration Dates Next Due Hepatitis [...] FOBT 01/10/2009 SIGMOIDOSCOPY 01/10/2009 VIRTUAL COLONOSCOPY 01/10/2009 RSV VACCINE (1 - Risk 50-74 years 1-dose series) 01/10/2014 PNEUMOCOCCAL VACCINES (50+ years) (2 of 2 - PCV) 07/21/2015 07/20/2014 PAP SMEAR 07/04/2021 07/04/2018 INFLUENZA VACCINE (#1) 2024 0, 11/15/2018, 12/16/2017, [...] this topic Medical Devices Implanted Type Area Textile Pin Worker Device Identifier Shelf Expiration Date Model / Serial / Lot Tmj Unilateral Implant Pt Andreea Implanted:Qty: 1 on 08/06/2023 by Nick Reyes MD, DDS at [facility] Right: Face 03/15/2025 [id number] / / [id number] Insurance [employer] [facility] [employer] [facility] [employer] Advance Directives For more information, please contact: [phone] (9AM - 5PM [facility], Wednesday-Wednesday) * Full Code (Latest Code Status [...] Code Status Confirmed With: Patient Care Teams Hand Suture Winder Relationship Specialty Start Date End Date Etelvina Sears MD [address] [place] [phone] PCP - General Internal Medicine 05/25/22 Additional Source Comments The information contained in this document represents components of the legal health record. It is not the complete legal health record.[facility]
--- OUTSIDE RECORDS SUMMARY | 2024-12-08 14:10 | XMS_ITS | Encounter Summary ---
Author Organization [facility] Address [address] [facility] [address] [place] [address] Phone Care Team Providers Care Forester Silviculture Name Role Phone Etelvina Sears MD Primary Care Provider [phone] Encounter Details Date Type Department Care Team (Late st Contact Info) Description 02/25/2023 Procedure Pass [facility] CT, [place] [address] [facility], 2nd [address], [address] [place] [address] Social History Tobacco Use Types Packs/Day Years [...] on filedocumented in this encounter Care Teams Forester Silviculture Relationship Specialty Start Date End Date Etelvina Sears MD [address] [facility] [address] [place] [phone] PCP - General Internal Medicine 05/25/22 documented as of this encounter Additional Source Comments The information contained in this document represents components of the legal health record. It is not the complete legal health record.[facility]
--- OUTSIDE RECORDS SUMMARY | 2024-12-08 14:10 | XMS_ITS | Encounter Summary ---
Author Organization [facility] Address [address] [facility] [address] [place] [address] Phone Care Team Providers Care Molding Machine Tender Name Role Phone Etelvina Sears MD Primary Care Provider [phone] Encounter Details Date Type Department Care Team ([facility] st Contact Info) Description 06/17/2022 Procedure Pass [facility] - [place] [address] [facility], 6th [place] [address] Social History Tobacco Use Types Packs/Day Years [...] on filedocumented in this encounter Care Teams Molding Machine Tender Relationship Specialty Start Date End Date Etelvina Sears MD [address] [place] [address] PCP - General Internal Medicine 05/25/22 documented as of this encounter Additional Source Comments The information contained in this document represents components of the legal health record. It is not the complete legal health record.[facility]
--- OUTSIDE RECORDS SUMMARY | 2024-12-08 14:10 | XMS_ITS | Encounter Summary ---
Author Organization [facility] Address [address] [facility] [address] [place] [address] Phone Care Team Providers Care Professor Of Apologetics Name Role Phone Etelvina Sears MD Primary Care Provider [phone] Encounter Details Date Type Department Care Team (Late st Contact Info) Description 06/17/2022 Procedure Pass [facility] [address] [place] [address] Social History Tobacco Use Types Packs/Day Years [...] in this encounter Care Teams Professor Of Apologetics Relationship Specialty Start Date End Date Etelvina Sears MD [address] [place] [address] PCP - General Internal Medicine 05/25/22 documented as of this encounter Additional Source Comments The information contained in this document represents components of the legal health record. It is not the complete legal health record.[facility]
--- OUTSIDE RECORDS SUMMARY | 2024-12-08 14:10 | XMS_ITS | Clinical Summary ---
Author Organization [facility] Address [address] [place] [address] Care Team Providers Care Chemical Plant Operator Supervisor Name Role Phone Unavailable Primary Care Provider Unavailabl e Surgical History Surgery Date Site/Laterality Comments TUBAL LIGATION PROCEDURE: HISTORICAL TUBAL LIGATION HERNIA REPAIR Bilateral PROCEDURE: HISTORICAL HERNIA REPAIR/ING; COMMENT: around age 8 y/o BLADDER SUSPENSION 2010 PROCEDURE: HISTORICAL BLADDER SUSPENSION; COMMENT: Dr. Maldonado, bladder sling EYE SURGERY PROCEDURE: MT TRABECULOPLASTY BY LASER SURGERY; COMMENT: right lasik on right OTHER SURGICAL HISTORY PROCEDURE: MT REPOSITIONING IO LENS PROSTHESIS REQ INC SPX; COMMENT: left eye FOOT SURGERY PROCEDURE: HISTORICAL FOOT SURGERY; COMMENT: plantar fascia repair bilateral OTHER SURGICAL HISTORY PROCEDURE: MT SUTURE NERVE REQ XTNSV MOBIL/TRPOS NERVE; COMMENT: left ulnar nerve UPPER GASTROINTESTINAL ENDOSCOPY 02/23/2012 PROCEDURE: MT UPPER GI ENDOSCOPY PERFORMED COLONOSCOPY 03/12/2009 PROCEDURE: [...] abscesses due to MRSA. Off/on meds late 2766-4377. Enbrel stopped because of recurrent infections. Leflunomide [...] Health Maintenance Due Date Last Done Comments Colorectal Cancer Screening: Colonoscopy 1964 Hepatitis A Vaccines (1 of 2 - Risk 2-dose series) 01/10/1983 RSV Immunization Adult Patients (1 - Risk 50-74 years 1-dose series) 01/10/2014 Zoster Vaccines (1 of 2) 01/10/2014 Pneumococcal Vaccine: 50+ Years (2 of 2 - PCV) 07/21/2015 07/20/2014 Cervical Cancer Screening: Pap Smear 07/04/2021 07/04/2018 Cholesterol Screening (Lipid Panel) 01/18/2022 HIV Screening 01/18/2022 Hepatitis C Screening 01/18/2022 Social Influencers of Health Screening 01/18/2022 Breast Cancer Screening 02/20/2022 02/20/19 21, 06/14/2018, 06/08/2017, Additional history exists Depression Screening 02/16/2024 COVID-19 Vaccine (3 - season) 2024 02/29/2020, 02/05/2020 Influenza Vaccine (#1) 2024 0, 11/15/2018, 12/16/2017, [...] RESULTING AGENCY - 07/06/2018 4:50 PM EDT [id number] THINPREP PAP, IMAGED: NEGATIVE FOR SQUAMOUS INTRAEPITHELIAL [...]
--- OUTSIDE RECORDS SUMMARY | 2024-12-08 14:10 | XMS_ITS | Encounter Summary ---
Author Organization [facility] Address [address] [facility] [address] [place] [address] Phone Care Team Providers Care Mathematics Faculty Member Name Role Phone Etelvina Sears MD Primary Care Provider [phone] Encounter Details Date Type Department Care Team (Late st Contact Info) Description 08/06/2023 Procedure Pass [facility] CT, [place] [address] [facility], 6th [place] [address] Social History Tobacco Use Types Packs/Day Years [...] on filedocumented in this encounter Care Teams Mathematics Faculty Member Relationship Specialty Start Date End Date Etelvina Sears MD [address] [facility] [address] [place] [phone] PCP - General Internal Medicine 05/25/22 documented as of this encounter Additional Source Comments The information contained in this document represents components of the legal health record. It is not the complete legal health record.[facility]
--- OUTSIDE RECORDS SUMMARY | 2024-12-08 14:10 | XMS_ITS | Encounter Summary ---
Author Organization [facility] Address [address] [facility] [address] [place] [address] Phone Care Team Providers Care Contamination Consultant Name Role Phone Etelvina Sears MD Primary Care Provider [phone] Encounter Details Date Type Department Care Team (Late st Contact Info) Description 12/10/2022 Procedure Pass MRI, [facility] [address] [place] [address] Social History Tobacco Use Types [...] on filedocumented in this encounter Care Teams Contamination Consultant Relationship Specialty Start Date End Date Etelvina Sears MD [address] [place] [phone] PCP - General Internal Medicine 05/25/22 documented as of this encounter Additional Source Comments The information contained in this document represents components of the legal health record. It is not the complete legal health record.[facility]
--- OUTSIDE RECORDS SUMMARY | 2024-12-08 14:10 | XMS_ITS | Encounter Summary ---
Author Organization [facility] Address [address] [facility] [address] [place] [address] Phone Care Team Providers Care Petroleum Supply Specialist Name Role Phone Etelvina Sears MD Primary Care Provider [phone] Encounter Details Date Type Department Care Team (Late st Contact Info) Description 08/21/2022 Procedure Pass [facility] [address] [place] [id number] Social History Tobacco Use Types Packs/Day Years [...] on filedocumented in this encounter Care Teams Petroleum Supply Specialist Relationship Specialty Start Date End Date Etelvina Sears MD [address] [place] [phone] PCP - General Internal Medicine 05/25/22 documented as of this encounter Additional Source Comments The information contained in this document represents components of the legal health record. It is not the complete legal health record.[facility]
--- OUTSIDE RECORDS SUMMARY | 2024-12-08 14:10 | XMS_ITS | Patient Health Record ---
Author [facility] Address [address] [place] [address] Care Team Providers Care Rewinder Name Role Phone Etelvina Sears Primary Care Provider Justino Duque Unavailable [phone] Allergies Allergen (clinical drug ingredient) Drug/Non Drug [...] Status Risk Notes Problem Acquired hallux valgus (56764919) Hallux valgus (acquired), right foot (M20.11) Active confirmed Problem Acquired hammer toe of right foot (03026849587896 05) Other hammer toe(s) (acquired), right foot (M20.41) Active confirmed Problem Acquired hammer toe of left foot (26603734293281 03) Other hammer toe(s) (acquired), left foot (M20.42) Active confirmed Problem Pain in limb (40524659) Pain in unspecified foot (M79.673) Active confirmed Problem Rheumatoid arthritis (46242874) Rheumatoid arthritis involving multiple sites with positive rheumatoid factor (M05.79) Active confirmed Plan Of Treatment Pending Test Test Name Order Date X ray : Foot, left 3V 03/15/2015 26994, X7615-MEGZK/INJECT, JOINT/BURSA 0 04/02/2020 Insurance Providers Payer Name Payer Address Payer Phone Subscriber Number Group Number Insured Name Patient Relationship to Insured Coverage Start Date Coverage End Date [employer] Benefits [address] [address] [place] [address] [id number] Marian Doran Self - patient is the [...]
--- OUTSIDE RECORDS SUMMARY | 2024-12-08 14:11 | XMS_ITS | Encounter Summary ---
Author Organization [facility] Address [address] [facility] [address] [place] [address] Phone Care Team Providers Care Director Of Consulting Services Name Role Phone Etelvina Sears MD Primary Care Provider [phone] Encounter Details Date Type Department Care Team (Late st Contact Info) Description 02/25/2023 Procedure Pass [facility] 3D[facility] [address] [place] [address] Social History Tobacco Use Types Packs/Day Years [...] in this encounter Care Teams Director Of Consulting Services Relationship Specialty Start Date End Date Etelvina Sears MD [address] [place] [phone] PCP - General Internal Medicine 05/25/22 documented as of this encounter Additional Source Comments The information contained in this document represents components of the legal health record. It is not the complete legal health record.[facility]
--- OUTSIDE RECORDS SUMMARY | 2024-12-08 14:11 | XMS_ITS | Encounter Summary ---
Author Organization [facility] Address [address] [place] [address] Phone Care Team Providers Care Plate Inspector Name Role Phone Etelvina Sears MD Primary Care Provider [phone] Encounter Details Date Type Department Care Team ([facility] st Contact Info) Description 08/06/2023 Procedure Pass [facility] [place] PERIOPERATIVE DEPT [address] [place] [id number] Social History Tobacco Use Types Packs/Day [...] on filedocumented in this encounter Care Teams Plate Inspector Relationship Specialty Start Date End Date Etelvina Sears MD [address] [place] [phone] PCP - General Internal Medicine 05/25/22 documented as of this encounter Additional Source Comments The information contained in this document represents components of the legal health record. It is not the complete legal health record.[facility]
--- OUTSIDE RECORDS SUMMARY | 2024-12-08 14:11 | XMS_ITS | Encounter Summary ---
Author Organization [facility] Address [address] [place] [address] Phone Care Team Providers Care Webfed Offset Press Operator Name Role Phone tEelvina Sears MD Primary Care Provider [phone] Encounter Details Date Type Department Care Team ([facility] st Contact Info) Description 08/09/2023 Procedure Pass [facility] IMG 3DCTMR MG [address] [place] [address] Social History Tobacco Use Types Packs/Day Years [...] on filedocumented in this encounter Care Teams Webfed Offset Press Operator Relationship Specialty Start Date End Date Etelvina Sears MD [address] [place] [phone] PCP - General Internal Medicine 05/25/22 documented as of this encounter Additional Source Comments The information contained in this document represents components of the legal health record. It is not the complete legal health record.[facility]
--- OUTSIDE RECORDS SUMMARY | 2024-12-08 14:11 | XMS_ITS | Encounter Summary ---
Author Organization [facility] Address [address] [place] [address] Phone Care Team Providers Care Recruitment Officer Name Role Phone Etelvina Sears MD Primary Care Provider [phone] Reason for Referral * MRI/CAT Scan - Closed Specialty Diagnoses / Procedures Referred By Contac t Referred To Contact Radiology Diagnoses TMJ disease Procedures CT 3D Reconstruction Face CHG 3D RENDERING W/INTERP&POSTPROC DIFF WORK STATION Gabe Soriano MD Phone: tel: mailto:[email or web address] Referral ID Status Reason Start Date Expiration Date Visits Re quested Visits Authorized [id number] Closed 08/09/2023 1 1 Encounter Details Date Type Department Care Team (Late st Contact Info) Description 08/09/2023 Ancillary Orders [facility] Steffi ALY [address] [facility]th [place] [address] Gabe Soriano MD [address] [place] [address] [email or web address] TMJ disease (Primary Dx) Social History Tobacco [...] refer to the primary CT accession number [id number] for the full report indicating 3D images were created on an independent workstation and interpreted. Procedure Note Ray Harris MD - 08/13/2023 Please refer to the primary CT accession number [id number] for the fullreport indicating 3D images were created on an independent workstation andinterpreted. Etelvina Sears MD IMG CT Final Result documented in this encounter Visit Diagnoses Diagnosis TMJ disease- Primary Unspecified temporomandibular joint disorders TMJ disease Unspecified temporomandibular joint disorders documented in this encounter Care Teams Recruitment Officer Relationship Specialty Start Date End Date Etelvina Sears MD [address] [place] [address] PCP - General Internal Medicine 05/25/22 documented as of this encounter Additional Source Comments The information contained in this document represents components of the legal health record. It is not the complete legal health record.[facility]
== END 2024-12-08 12:57 | disposition home or self-care (01) ==
LOC: HO.HSMS 11:55
PROVIDERS: PCP Internal Medicine; Visit Provider Physician Assistant Medical
DX: G47.10 Hypersomnia, unspecified (principal); R06.83 Snoring; G47.63 Sleep related bruxism; G47.19 Other hypersomnia
CPT/HCPCS: 99214

== ENCOUNTER 2024-12-14 14:26 | Outpatient (AMB) | payer BC, SELFPAY ==
--- OUTSIDE RECORDS SUMMARY | 2022-06-05 10:13 | XMS_ITS | Encounter Summary ---
Author Organization [facility] Address [address] [place] [address] Phone Care Team Providers Care Case Management Rn Name Role Phone Etelvina Sears MD Primary Care Provider [phone] Encounter Details Date Type Department Care Team (Late st Contact Info) Description 06/05/2022 10:13 AM EDT Hospital Encounter [facility] [address] [place] [address] Sierra Khan CNP [address] [place] [phone] [email or web address] Social History Tobacco Use Types Packs/Day Years [...] abnormality. IMPRESSION: Normal chest. us Sierra Khan FAMILY LAW SPECIALIST IMG XR CHEST Final Resul t documented in this encounter Visit Diagnoses Not on filedocumented in this encounter Care Teams Case Management Rn Relationship Specialty Start Date End Date Etelvina Sears MD [address] [place] [address] [place] [phone] PCP - General Internal Medicine 05/25/22 documented as of this encounter Additional Source Comments The information contained in this document represents components of the legal health record. It is not the complete legal health record.[facility]
--- OUTSIDE RECORDS SUMMARY | 2022-06-14 09:43 | XMS_ITS | Encounter Summary ---
Author Organization [facility] Address [address] [place] [address] Phone Care Team Providers Care Logistic Manager Name Role Phone Etelvina Sears MD Primary Care Provider [phone] Encounter Details Date Type Department Care Team (Late st Contact Info) Description 06/14/2022 9:43 AM EDT Hospital Encounter [facility] [address] [place] [phone] Jesse Delatorre PA-C [address] [place] [phone] [email or web address] Social History Tobacco Use Types Packs/Day Years [...] on filedocumented in this encounter Care Teams Logistic Manager Relationship Specialty Start Date End Date Etelvina Sears MD [address] [place] [address] PCP - General Internal Medicine 05/25/22 documented as of this encounter Additional Source Comments The information contained in this document represents components of the legal health record. It is not the complete legal health record.[facility]
--- OUTSIDE RECORDS SUMMARY | 2023-07-02 14:30 | XMS_ITS | Encounter Summary ---
Author Organization [facility] Address [address] [facility] [address] [place] [address] Phone Care Team Providers Care Storage Management Architect Name Role Phone Etelvina Sears MD Primary Care Provider [phone] Encounter Details Date Type Department Care Team (Late st Contact Info) Description 07/02/2023 2:30 PM EDT Hospital Encounter [facility] [address] [place] [phone] Jesse Delatorre PA-C [address] [place] [phone] [email or web address] Social History Tobacco Use Types Packs/Day Years [...] on filedocumented in this encounter Care Teams Storage Management Architect Relationship Specialty Start Date End Date Etelvina Sears MD [address] [place] [address] [place] [address] [phone] PCP - General Internal Medicine 05/25/22 documented as of this encounter Additional Source Comments The information contained in this document represents components of the legal health record. It is not the complete legal health record.[facility]
--- NOTE | 2024-12-14 14:28 | A.OFFVIS_ITS ---
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 Currently not sexually active w/ due to medical coccnerns. Attempting to eat a healthy diet with calcium and vitamin D and stays active with exercise, she walks and plays pickleball. Has lost weight and has goals to lose more by the of the year by healthy eating. Last pap smear; 2023, negative. Last mammogram; 2022. Colonoscopy is UTD. Denies any family history of breast, ovarian or colon cancer. PFSH Medical History UTI (urinary tract infection) Osteopenia Pneumonia Elevated transaminase level Long-term use of immunosuppressant medication COVID-19 vaccine administered Hidradenitis suppurativa of left axilla Urge incontinence Hypercholesterolemia MRSA infection GERD (gastroesophageal reflux disease) Rheumatoid arthritis Hypothyroid Surgical History TMJ (sprain of temporomandibular joint) History of esophagogastroduodenoscopy (EGD) Hx of colonoscopy History of eye surgery Ulnar neuropathy at elbow of left upper extremity Plantar fasciitis, bilateral H/O tubal ligation Hx of tonsillectomy Inguinal hernia Family History Mother Myocardial infarct Father Lung cancer Paternal Uncle Bladder cancer Paternal Aunt Stomach cancer Maternal Uncle Myocardial infarct Social History Housing: House Are you a primary health care specialist to a significant other at home: No Do you presently have visiting nurse or other home services: No Alcohol intake: current Alcohol intake frequency: a few times a month Alcohol type: wine and hard liquor Comment: 3-4 x a month glass of wine Patient Tobacco Use Status: Never used Tobacco e-Cigarette/Vaping Use: Never Used Second Hand Smoke Exposure: No Advance Directives Date on File: 09/17/20 service: No Current occupational status: employed 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, 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 Cognitive needs: No Hearing needs: No Vision needs: Yes Female Reproductive History Menstrual control method: permanent sterilization Permanent Sterilization: BTL Total pregnancies: 2 Full term: 2 Number of Living Children: 2 Date of last pap smear: 12/10/23 (neg pap and hpv) Date of Mammogram: 11/27/22 (Birad 1) Date of last Bone Density Screenin04/14/24 Review of Systems Const All systems reviewed & are unremarkable except as noted in HPI and below Reports as per HPI Eyes Reports no additional complaints ENT Reports no additional complaints Card Reports no additional complaints Resp Reports no additional complaints GI Reports as per HPI and Reports no additional complaints Reports as per HPI Musc Reports no additional complaints Skin/Breast Reports as per HPI Neuro Reports no additional complaints Psych Reports no additional complaints Endo Reports no additional complaints Gage/Lymph Reports no additional complaints Aller/Immun Reports no additional complaints Physical Exam Vital Signs: Last Vital Signs BP 120/62 12/14/24 14:30 BMI result Body Mass Index 31.5 Const General: cooperative, healthy appearing, no acute distress, well developed and alert Orientation/consciousness: patient oriented x3 HEENT Head: Yes normal to inspection Eyes General: appearance normal, both eyes and all related structures Neck Neck: Yes normal visual inspection Thyroid: Thyroid normal Chest Chest palpation & inspection: normal inspection of the chest and other (no puckering, dimpling, peau de orange, retraction, discharge, masses) Breast/axilla inspection: normal inspection of the breasts Breast/axilla palpation: normal palpation of the breasts Resp Effort & Inspection: normal respiratory effort GI Inspection: Yes normal to inspection Palpation (GI): Soft to palpation Rectal Exam - Female: deferred General: Yes bladder normal to palpation External Female Exam: normal external appearance and normal appearance of the urethra Speculum Exam - Vagina: normal appearance of the vagina, normal palpation, normal vaginal discharge and vagina atrophic Speculum Exam - Cervix: normal appearance of the cervix and normal palpation Bimanual exam- vagina & uterus: normal bimanual exam, normal palpation, uterine size normal, bladder normal to palpation, normal palpation and non-tender Bimanual Exam- Adnexa, other: no masses Skin General skin exam: no rashes or lesions noted Rashes: no rashes Neuro General: patient oriented x3 Cognition (Neuro): normal cognition Extrem General: Yes normal to inspection Psych Attitude: cooperative Thought process: Normal thought process present Assessment & Plan Assessment & Plan (1) Encounter for well woman exam with routine gynecological exam: Code(s): Z01.419 - Encounter for gynecological examination (general) (routine) without abnormal findings Category: Medical Plan Discussed: Current recommendations for pap smears per ASCCP guidelines. Breast awareness, periodic self breast exams and yearly mammogram. Encouraged her to schedule her mammogram and attend appointment this year. Maintain a healthy lifestyle, well balanced diet including Calcium 1,200 mg and Vitamin D 600 IU daily, and routine exercise. Contact the office with any postmenopausal bleeding. Patient verbalizes understanding and agrees to the plan of care. She was given opportunity to ask questions and all questions were answered to the best of my ability. RTO in 1 year for annual bi architect exam. This note is constructed using voice recognition software. While every effort has been made to ensure accuracy, network relay tester errors may have been included. Orders: Orders MM tomosynthesis screening BI Today Z12.31 - Encounter for screening mammogram for malignant neoplasm of breast Coding Level of Care Code Est Pt Prev Care 40-64y(00442) Diagnoses Encounter for well woman exam with routine gynecological exam Z01.419
[2024-12-14 14:30] VITALS: BP 120/62; BMI 31.5
--- OUTSIDE RECORDS SUMMARY | 2024-12-14 17:26 | XMS_ITS | Encounter Summary ---
Author Organization [facility] Address [address] [place] [address] Care Team Providers Care Tax Examining Technician Name Role Phone Frances Gloria MD Primary Care Provider Issac Reynolds MD Primary Care Provider Jeri Ramírez, Pcp Primary Care Provider [facility] Encounter Details Date Type Department Care Team Description 06/28/2019 Pt. Non Urgent Medical Question Rheumatology - [address] [address] Brendon Gale MD Social History Tobacco Use [...] on filedocumented in this encounter Care Teams Tax Examining Technician Relationship Specialty Start Date End Date Frances Gloria MD PCP - General Internal Medicine 12/21/18 12/21/19 Issac Wilson MD PCP - General Internal Medicine 12/22/19 03/12/20 Eusebia Ramírez PCP - General Internal Medicine 03/13/20 documented as of this encounter
--- OUTSIDE RECORDS SUMMARY | 2024-12-14 17:26 | XMS_ITS | Encounter Summary ---
Author Organization [facility] Address [address] [place] [address] Care Team Providers Care Primer Expeditor And Drier Name Role Phone Frances Gloria MD Primary Care Provider Issac Reynolds MD Primary Care Provider Jeri Ramírez, Pcp Primary Care Provider Unavailabl e Reason for Visit * Reason Onset Date Comments Faxed Refill 05/29/2019 Encounter Details Date Type Department Care Team Description 05/29/2019 Refill Adult Medicine [address] [address] Frances Gloria MD Faxed Refill Social History [...] have an upcoming appointment? No-unable to reach [facility] to call for appointment due to [...] DRE/PPO POS / Plan: PPO $25 [place] [id number] / ProductType: PPO [id number] documented in this encounter Plan of Treatment Not on file documented as of this encounter Visit Diagnoses Diagnosis Metatarsalgia of both feet Enthesopathy of ankle and tarsus, unspecified Pes planus of both feet Seropositive rheumatoid arthritis (HCC) Rheumatoid arthritis documented in this encounter Care Teams Primer Expeditor And Drier Relationship Specialty Start Date End Date Frances Gloria MD PCP - General Internal Medicine 12/21/18 12/21/19 Jacqueline Wilson-MD Won PCP - General Internal Medicine 12/22/19 03/12/20 [facility] Pcp PCP - General Internal Medicine 03/13/20 documented as of this encounter
--- OUTSIDE RECORDS SUMMARY | 2024-12-14 17:26 | XMS_ITS | Clinical Summary ---
Author Organization [facility] Address [address] [place] [address] Care Team Providers Care Sausage Linker Name Role Phone Unavailable Primary Care Provider Unavailabl e Surgical History Surgery Date Site/Laterality Comments TUBAL LIGATION PROCEDURE: HISTORICAL TUBAL LIGATION HERNIA REPAIR Bilateral PROCEDURE: HISTORICAL HERNIA REPAIR/ING; COMMENT: around age 8 y/o BLADDER SUSPENSION 2010 PROCEDURE: HISTORICAL BLADDER SUSPENSION; COMMENT: Dr. Maldonado, bladder sling EYE SURGERY PROCEDURE: [place] TRABECULOPLASTY BY LASER SURGERY; COMMENT: right lasik on right OTHER SURGICAL HISTORY PROCEDURE: [place] REPOSITIONING IO LENS PROSTHESIS REQ INC SPX; COMMENT: left eye FOOT SURGERY PROCEDURE: HISTORICAL FOOT SURGERY; COMMENT: plantar fascia repair bilateral OTHER SURGICAL HISTORY PROCEDURE: NH SUTURE NERVE REQ XTNSV MOBIL/TRPOS NERVE; COMMENT: left ulnar nerve UPPER GASTROINTESTINAL ENDOSCOPY 02/23/2012 PROCEDURE: NH UPPER GI ENDOSCOPY PERFORMED COLONOSCOPY 03/12/2009 PROCEDURE: [...] abscesses due to MRSA. Off/on meds late [id number]. Enbrel stopped because of recurrent infections. Leflunomide [...] RESULTING AGENCY - 07/06/2018 4:50 PM EDT [id number] THINPREP PAP, IMAGED: NEGATIVE FOR SQUAMOUS INTRAEPITHELIAL [...]
--- OUTSIDE RECORDS SUMMARY | 2024-12-14 17:26 | XMS_ITS | Encounter Summary ---
Author Organization [facility] Address [address] [place] [address] Care Team Providers Care Exceptional Student Education Aide Name Role Phone Community, Pcp Primary Care Provider Unavailabl e Encounter Details Date Type Department Care Team Description 03/13/2020 Telephone Adult [address] [address] Community, Pcp Social History Tobacco Use Types [...] on filedocumented in this encounter Care Teams Exceptional Student Education Aide Relationship Specialty Start Date End Date Community, Pcp PCP - General Internal Medicine 03/13/20 documented as of this encounter
--- OUTSIDE RECORDS SUMMARY | 2024-12-14 17:26 | XMS_ITS | Encounter Summary ---
Author Organization [facility] Address [address] [place] [address] Care Team Providers Care Manager Auto Name Role Phone Issac Wilson MD Primary Care Provider Frances Wood MD Primary Care Provider Issac Reynolds MD Primary Care Provider Jeri Ramírez, Pcp Primary Care Provider Unavailabl e Reason for Visit * Reason Comments E-prescribe Rx Request Encounter Details Date Type Department Care Team Description 10/10/2018 Refill Adult Medicine [address] [address] Jose Maria Carlisle PA-C [address] [place] [phone] E-prescribe Rx Request Social History Tobacco Use [...] needs to get this med from her president ceo & founder * Telephone Encounter - Mirian Sarmiento M.A. [...] N/A Patients current insurance carrier is: Payor: -ND/PPO POS / Plan: PPO $30 [employer] [id number] / ProductType: PPO [id number] documented in this encounter Plan of Treatment Not on file documented as of this encounter Visit Diagnoses Diagnosis Seropositive rheumatoid arthritis (HCC) Rheumatoid arthritis documented in this encounter Care Teams Manager Auto Relationship Specialty Start Date End Date Issac Wilson MD PCP - General Internal Medicine 09/28/13 12/20/18 Frances Gloria MD PCP - General Internal Medicine 12/21/18 12/21/19 Issac Wilson MD PCP - General Internal Medicine 12/22/19 03/12/20 Community, Pcp PCP - General Internal Medicine 03/13/20 documented as of this encounter
--- OUTSIDE RECORDS SUMMARY | 2024-12-14 17:26 | XMS_ITS | Encounter Summary ---
Author Organization [facility] Address [address] [place] [address] Care Team Providers Care Log Cutter Name Role Phone Issac Wilson MD Primary Care Provider Frances Wood MD Primary Care Provider [facility] Issac Wilson MD Primary Care Provider Jeri Ramírez, Pcp Primary Care Provider Miryam sherman Encounter Details Date Type Department Care Team Description 12/18/2018 Pt. Non Urgent Medical Question Rheumatology - [address] [address] Brendon Gale MD Social History Tobacco Use [...] for prescriptions. I don't get Xeglenz through [employer] mail any longer. The phone number is [...] on filedocumented in this encounter Care Teams Log Cutter Relationship Specialty Start Date End Date Issac Wilson MD PCP - General Internal Medicine 09/28/13 12/20/18 Frances Gloria MD PCP - General Internal Medicine 12/21/18 12/21/19 Issac Wilson MD PCP - General Internal Medicine 12/22/19 03/12/20 [facility], Pcp PCP - General Internal Medicine 03/13/20 documented as of this encounter
--- OUTSIDE RECORDS SUMMARY | 2024-12-14 17:26 | XMS_ITS | Encounter Summary ---
Author Organization [facility] Address [address] [place] [address] Care Team Providers Care Dicer Machine Operator Name Role Phone Issac Wilson MD Primary Care Provider Frances Wood MD Primary Care Provider [facility] Issac Wilson MD Primary Care Provider Jeri Ramírez, Pcp Primary Care Provider Unavailabl e Reason for Visit * Reason Onset Date Comments Mychart Rx Refill 08/25/2018 Encounter Details Date Type Department Care Team Description 08/25/2018 Refill Adult Medicine [address] [address] Issac Wilson MD Mychart Rx Refill Social [...] [facility] [address] [place] [address] RICHI KNIGHT AT [facility] Comment: no refills remaining documented in this encounter Plan of Treatment Not on file documented as of this encounter Visit Diagnoses Diagnosis Hypothyroidism due to acquired atrophy of thyroid documented in this encounter Care Teams Dicer Machine Operator Relationship Specialty Start Date End Date Issac Wilson MD PCP - General Internal Medicine 09/28/13 12/20/18 Frances Gloria MD PCP - General Internal Medicine 12/21/18 12/21/19 Issac Wilson MD PCP - General Internal Medicine 12/22/19 03/12/20 Pending Sale To [facility], Pcp PCP - General Internal Medicine 03/13/20 documented as of this encounter
--- OUTSIDE RECORDS SUMMARY | 2024-12-14 17:26 | XMS_ITS | Encounter Summary ---
Author Organization [facility] Address [address] [place] [address] Care Team Providers Care Belt Turner Name Role Phone Issac Wilson MD Primary Care Provider Frances Wood MD Primary Care Provider Unavail able Issac Wilson MD Primary Care Provider Jeri Ramírez, Pcp Primary Care Provider Unavailabl e Encounter Details Date Type Department Care Team Description 09/15/2018 Orders Only Adult Medicine [address] [address] Issac Wilson MD Screening examination for pulmonary [...] tuberculosis documented in this encounter Care Teams Belt Turner Relationship Specialty Start Date End Date Issac Wilson MD PCP - General Internal Medicine 09/28/13 12/20/18 Frances Gloria MD PCP - General Internal Medicine 12/21/18 12/21/19 Issac Wilson MD PCP - General Internal Medicine 12/22/19 03/12/20 [facility] PCP - General Internal Medicine 03/13/20 documented as of this encounter
--- OUTSIDE RECORDS SUMMARY | 2024-12-14 17:26 | XMS_ITS | Encounter Summary ---
Author Organization [facility] Address [address] [place] [address] Care Team Providers Care Photographic Laboratory Technician Name Role Phone Community, Pcp Primary Care Provider Unavailabl e Reason for Visit * Reason Onset Date Comments Faxed Refill 03/13/2020 Encounter Details Date Type Department Care Team Description 03/13/2020 Refill Adult Medicine [address] [address] Issac Wilson MD Faxed Refill Social History [...] the following the patients current home address: [address] [place] [phone] yes If their mail order pharmacy is NOT a participating pharmacy we can:If this refill request was recieved via fax or e-prescribe the request will be faxed back to the pharmacy Is this the patients current medical insurance carrier? Payor: [employer] [facility] / Plan: PPO $20 [place] [id number] / Product Type: PPO [id number] YES documented in this encounter Plan of Treatment Not on file documented as of this encounter Visit Diagnoses Not on filedocumented in this encounter Care Teams Photographic Laboratory Technician Relationship Specialty Start Date End Date Community, Pcp PCP - General Internal Medicine 03/13/20 documented as of this encounter
--- OUTSIDE RECORDS SUMMARY | 2024-12-14 17:26 | XMS_ITS | Encounter Summary ---
Author Organization [facility] Address [address] [place] [address] Care Team Providers Care Business Continuity Director Name Role Phone Frances Gloria MD Primary Care Provider [facility] Issac Wilson MD Primary Care Provider Jeri ervin [facility], Pcp Primary Care Provider [facility] Encounter Details Date Type Department Care Team Description 06/05/2019 Refill Gastroenterology - [address] [place] [phone] Jeffrey Mazariegos MD Social History Tobacco [...] on filedocumented in this encounter Care Teams Business Continuity Director Relationship Specialty Start Date End Date Frances Gloria MD PCP - General Internal Medicine 12/21/18 12/21/19 Issac Wilson MD PCP - General Internal Medicine 12/22/19 03/12/20 [facility], Pcp PCP - General Internal Medicine 03/13/20 documented as of this encounter
--- OUTSIDE RECORDS SUMMARY | 2024-12-14 17:27 | XMS_ITS | Encounter Summary ---
Author Organization [facility] Address [address] [place] [address] Care Team Providers Care Mis Specialist Name Role Phone Frances Gloria MD Primary Care Provider Issac Reynolds MD Primary Care Provider Jeri Ramírez, Pcp Primary Care Provider [facility] Encounter Details Date Type Department Care Team Description 04/20/2019 Pt. Non Urgent Medical Question Rheumatology - [address] [address] Brendon Gale MD Chest wall tenderness (Primary [...] fracture documented in this encounter Care Teams Mis Specialist Relationship Specialty Start Date End Date Frances Gloria MD PCP - General Internal Medicine 12/21/18 12/21/19 Issac Wilson MD PCP - General Internal Medicine 12/22/19 03/12/20 [facility] PCP - General Internal Medicine 03/13/20 documented as of this encounter
--- OUTSIDE RECORDS SUMMARY | 2024-12-14 17:27 | XMS_ITS | Encounter Summary ---
Author Organization [facility] Address [address] [place] [address] Care Team Providers Care Chicken And Fish Cleaner Name Role Phone Issac Wilson MD Primary Care Provider Frances Wood MD Primary Care Provider Unavail able Issac Wilson MD Primary Care Provider Jeri Ramírez Pcp Primary Care Provider Unavailjonatan e Encounter Details Date Type Department Care Team Description 08/13/2016 Pt. Non Urgent Medical Question Rheumatology - [address] [address] Brendon Gale MD Social History Tobacco Use [...] on filedocumented in this encounter Care Teams Chicken And Fish Cleaner Relationship Specialty Start Date End Date Issac Wilson MD PCP - General Internal Medicine 09/28/13 12/20/18 Frances Gloria MD PCP - General Internal Medicine 12/21/18 12/21/19 Issac Wilson MD PCP - General Internal Medicine 12/22/19 03/12/20 Eusebia Ramírez PCP - General Internal Medicine 03/13/20 documented as of this encounter
--- OUTSIDE RECORDS SUMMARY | 2024-12-14 17:27 | XMS_ITS | Encounter Summary ---
Author Organization [facility] Address [address] [place] [address] Care Team Providers Care Unit Trust Manager Name Role Phone Roscoe Strickland MD Primary Care Provider Issac Barragan MD Primary Care Provider Frances Wood MD Primary Care Provider [facility] Issac Short MD Primary Care Provider Jeri Ramírez Pcp Primary Care Provider Unavailjonatan sherman Encounter Details Date Type Department Care Team Description 02/17/2013 Buttoner Report Medical Records [address] [place] [address] Rc Razo MD Social History Tobacco Use [...] on filedocumented in this encounter Care Teams Unit Trust Manager Relationship Specialty Start Date End Date Roscoe [...]
--- OUTSIDE RECORDS SUMMARY | 2024-12-14 17:27 | XMS_ITS | Encounter Summary ---
Author Organization [facility] Address [address] [place] [address] Care Team Providers Care Bonus Clerk Name Role Phone Roscoe Strickland MD Primary Care Provider Issac Barragan MD Primary Care Provider Frances Wood MD Primary Care Provider Issac Reynolds MD Primary Care Provider Jeri Ramírez, Pcp Primary Care Provider Miryam sherman Encounter Details Date Type Department Care Team Description 02/21/2012 Pt. Non Urgent Medical Question Adult Medicine [address] [address] Ezequiel West FNP [address] [place] [address] Social History Tobacco Use Types Packs/Day Years [...] on filedocumented in this encounter Care Teams Bonus Clerk Relationship Specialty Start Date End Date Roscoe [...]
--- OUTSIDE RECORDS SUMMARY | 2024-12-14 17:27 | XMS_ITS | Encounter Summary ---
Author Organization [facility] Address [address] [facility] [address] [place] [address] Phone Care Team Providers Care Flooring Sales Manager Name Role Phone Etelvina Sears MD Primary Care Provider [phone] Encounter Details Date Type Department Care Team ([facility] st Contact Info) Description 06/17/[address] [facility] [place] [address] [facility], 6th [place] [address] Social History Tobacco Use Types Packs/Day Years [...] filedocumented in this encounter Care Teams Flooring Sales Manager Relationship Specialty Start Date End Date Etelvina Seasr MD [address] [place] [address] PCP - General Internal Medicine 05/25/22 documented as of this encounter Additional Source Comments The information contained in this document represents components of the legal health record. It is not the complete legal health record.[facility]
--- OUTSIDE RECORDS SUMMARY | 2024-12-14 17:27 | XMS_ITS | Encounter Summary ---
Author Organization [facility] Address [address] [place] [address] Care Team Providers Care Steward Racetrack Name Role Phone Roscoe Strickland MD Primary Care Provider Issac Barragan MD Primary Care Provider Frances Wood MD Primary Care Provider Issac Reynolds MD Primary Care Provider Jeri Ramírez Pcp Primary Care Provider Miryam sherman Encounter Details Date Type Department Care Team Description 05/20/2011 [facility] [place] [address] Jose Maria Bonilla MD Social History Tobacco [...] on filedocumented in this encounter Care Teams Steward Racetrack Relationship Specialty Start Date End Date Roscoe [...]
--- OUTSIDE RECORDS SUMMARY | 2024-12-14 17:27 | XMS_ITS | Encounter Summary ---
Author Organization [facility] Address [address] [facility] [address] [place] [address] Phone Care Team Providers Care Drying Machine Back Tender Name Role Phone Etelvina Sears MD Primary Care Provider [phone] Reason for Referral * MRI/CAT Scan - Closed Specialty Diagnoses / Procedures Referred By Contac t Referred To Contact Radiology Diagnoses TMJ disease Procedures CT 3D Reconstruction Face CHG 3D RENDERING W/INTERP&POSTPROC DIFF WORK STATION Gabe Soriano MD Phone: tel: [email or web address] Referral ID Status Reason Start Date Expiration Date Visits Re quested Visits Authorized [id number] Closed 08/09/2023 1 1 Encounter Details Date Type Department Care Team (Late st Contact Info) Description 08/09/2023 Ancillary Orders [facility] Steffi ALY [address] [facility], 6th [place] [address] Gabe Soriano MD [address] [place] [address] [email or web address] TMJ disease (Primary Dx) Social [...] refer to the primary CT accession number [id number] for the full report indicating 3D images were created on an independent workstation and interpreted. Procedure Note Ray Harris MD - 08/13/2023 Please refer to the primary CT accession number [id number] for the fullreport indicating 3D images were created on an independent workstation andinterpreted. Etelvina Sears MD IMG CT Final Result documented in this encounter Visit Diagnoses Diagnosis TMJ disease- Primary Unspecified temporomandibular joint disorders TMJ disease Unspecified temporomandibular joint disorders documented in this encounter Care Teams Drying Machine Back Tender Relationship Specialty Start Date End Date Etelvina Sears MD [address] [place] [address] PCP - General Internal Medicine 05/25/22 documented as of this encounter Additional Source Comments The information contained in this document represents components of the legal health record. It is not the complete legal health record.[facility]
--- OUTSIDE RECORDS SUMMARY | 2024-12-14 17:27 | XMS_ITS | Encounter Summary ---
Author Organization [facility] Address [address] [facility] [address] [place] [address] Phone Care Team Providers Care Psych Tech Name Role Phone Etelvina Sears MD Primary Care Provider [phone] Encounter Details Date Type Department Care Team (Late st Contact Info) Description 12/10/2022 Procedure Pass [facility] [address] [place] [address] Social History Tobacco Use Types [...] on filedocumented in this encounter Care Teams Psych Tech Relationship Specialty Start Date End Date Etelvina Sears MD [address] [place] [phone] PCP - General Internal Medicine 05/25/22 documented as of this encounter Additional Source Comments The information contained in this document represents components of the legal health record. It is not the complete legal health record.[facility]
--- OUTSIDE RECORDS SUMMARY | 2024-12-14 17:27 | XMS_ITS | Encounter Summary ---
Author Organization [facility] Address [address] [place] [address] Care Team Providers Care Bandage Winding Machine Operator Name Role Phone Issac Wilson MD Primary Care Provider Frances Wood MD Primary Care Provider Unavail able Issac Wilson MD Primary Care Provider Jeri Ramírez Pcp Primary Care Provider [facility] e Encounter Details Date Type Department Care Team Description 01/20/2014 Hospital Medical Records [address] [place] [address] Jose Maria Tran Social History Tobacco Use [...] on filedocumented in this encounter Care Teams Bandage Winding Machine Operator Relationship Specialty Start Date End Date Issac Wilson MD PCP - General Internal Medicine 09/28/13 12/20/18 Frances Gloria MD PCP - General Internal Medicine 12/21/18 12/21/19 Issac Wilson MD PCP - General Internal Medicine 12/22/19 03/12/20 Eusebia Ramírez PCP - General Internal Medicine 03/13/20 documented as of this encounter
--- OUTSIDE RECORDS SUMMARY | 2024-12-14 17:27 | XMS_ITS | Encounter Summary ---
Author Organization [facility] Address [address] [place] [address] Care Team Providers Care Critical Power Technician Name Role Phone Frances Gloria MD Primary Care Provider Issac Reynolds MD Primary Care Provider Jeri Ramírez, Pcp Primary Care Provider [facility] Encounter Details Date Type Department Care Team Description 10/24/2019 Orders Only Radiology - [address] [address] Frances Gloria MD Social History Tobacco Use [...] on filedocumented in this encounter Care Teams Critical Power Technician Relationship Specialty Start Date End Date Frances Gloria MD PCP - General Internal Medicine 12/21/18 12/21/19 Issac Wilson MD PCP - General Internal Medicine 12/22/19 03/12/20 Eusebia Ramírez PCP - General Internal Medicine 03/13/20 documented as of this encounter
--- OUTSIDE RECORDS SUMMARY | 2024-12-14 17:27 | XMS_ITS | Encounter Summary ---
Author Organization [facility] Address [address] [place] [address] Care Team Providers Care Purchasing Director Name Role Phone Roscoe Strickland MD Primary Care Provider Issac Barragan MD Primary Care Provider Frances Wood MD Primary Care Provider Issac Reynolds MD Primary Care Provider Jeri Ramírez Pcp Primary Care Provider Unavailjonatan sherman Encounter Details Date Type Department Care Team Description 05/26/2013 [facility] Medical Records [address] [place] [address] Carlos Alberto Knox MD Social History Tobacco [...] on filedocumented in this encounter Care Teams Purchasing Director Relationship Specialty Start Date End Date Roscoe [...]
--- OUTSIDE RECORDS SUMMARY | 2024-12-14 17:27 | XMS_ITS | Clinical Summary ---
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 Off/on meds late [id number]. Enbrel stopped because of recurrent infections. Leflunomide [...] this topic Medical Devices Implanted Type Area Dean Of Men Device Identifier Shelf Expiration Date Model / Serial / Lot [id number] Unilateral Implant Pt Andreea Implanted:Qty: 1 on 08/06/2023 by Nick Reyes MD, DDS at [facility] Right: Face 03/15/2025 [id number] / / [id number] Insurance [employer] [facility] [employer] [facility] [employer] Advance Directives For more information, please contact: [phone] (9AM - 5PM [facility], Wednesday-Wednesday) * Full Code (Latest Code Status [...] Code Status Confirmed With: Patient Care Teams Barrel Rib Matting Machine Operator Relationship Specialty Start Date End Date Etelvina Sears MD [address] [place] [phone] PCP - General Internal Medicine 05/25/22 Additional Source Comments The information contained in this document represents components of the legal health record. It is not the complete legal health record.[facility]
--- OUTSIDE RECORDS SUMMARY | 2024-12-14 17:27 | XMS_ITS | Encounter Summary ---
Author Organization [facility] Address [address] [place] [address] Care Team Providers Care Race Starter Name Role Phone Issac Wilson MD Primary Care Provider Frances Wood MD Primary Care Provider [facility] Issac Wilson MD Primary Care Provider Jeri Ramírez Pcp Primary Care Provider [facility] Reason for Visit * Reason Onset Date Comments numbness 06/09/2018 Leg Pain 06/09/2018 Encounter Details Date Type Department Care Team Description 06/09/2018 Telephone Adult [address] [address] Issac Wilson MD numbness; Leg Pain Social [...] 3rd democrat insurance information Date of accident/Injury: How long has patient had these symptoms?: PCP: Issac Wilson Payor: DRE/PPO POS / Plan: PPO $30 [place] [id number] / Product Type: PPO [id number] documented in this encounter Plan of Treatment Not on file documented as of this encounter Visit Diagnoses Not on filedocumented in this encounter Care Teams Race Starter Relationship Specialty Start Date End Date Issac Wilson MD PCP - General Internal Medicine 09/28/13 12/20/18 Frances Gloria MD PCP - General Internal Medicine 12/21/18 12/21/19 Issac Wilson MD PCP - General Internal Medicine 12/22/19 [facility] Internal Medicine 03/13/20 documented as of this encounter
--- OUTSIDE RECORDS SUMMARY | 2024-12-14 17:27 | XMS_ITS | Encounter Summary ---
Author Organization [facility] Address [address] [place] [address] Care Team Providers Care Logging Tractor Operator Swamp Name Role Phone Issac Wilson MD Primary Care Provider Frances Wood MD Primary Care Provider [facility] Issac Wilson MD Primary Care Provider Jeri Ramírez, Pcp Primary Care Provider [facility] Encounter Details Date Type Department Care Team Description 09/23/2016 Refill Adult Medicine [address] [address] Issac Wilson MD Social History Tobacco Use [...] hr tablet [Issac Wilson MD] Preferred pharmacy: [id number] - [place], [place] - [address] AT Comment: need new prescription documented in this encounter Plan of Treatment Not on file documented as of this encounter Visit Diagnoses Not on filedocumented in this encounter Care Teams Logging Tractor Operator Swamp Relationship Specialty Start Date End Date Issac Wilson MD PCP - General Internal Medicine 09/28/13 12/20/18 Frances Gloria MD PCP - General Internal Medicine 12/21/18 12/21/19 Issac Wilson MD PCP - General Internal Medicine 12/22/19 03/12/20 [facility], Pcp PCP - General Internal Medicine 03/13/20 documented as of this encounter
--- OUTSIDE RECORDS SUMMARY | 2024-12-14 17:27 | XMS_ITS | Encounter Summary ---
Author Organization [facility] Address [address] [place] [address] Care Team Providers Care Senior Energy Consultant Name Role Phone Frances Gloria MD Primary Care Provider [facility] Issac Wilson MD Primary Care Provider Jeri ervin [facility], Pcp Primary Care Provider [facility] e Encounter Details Date Type Department Care Team Description 08/04/2019 Refill Gastroenterology - [address] [place] [phone] Jeffrey Mazariegos MD Social History Tobacco [...] on filedocumented in this encounter Care Teams Senior Energy Consultant Relationship Specialty Start Date End Date Frances Gloria MD PCP - General Internal Medicine 12/21/18 12/21/19 Issac Wilson MD PCP - General Internal Medicine 12/22/19 03/12/20 [facility], Pcp PCP - General Internal Medicine 03/13/20 documented as of this encounter
--- OUTSIDE RECORDS SUMMARY | 2024-12-14 17:27 | XMS_ITS | Encounter Summary ---
Author Organization [facility] Address [address] [place] [address] Care Team Providers Care Director Life Sales Name Role Phone Issac Wilson MD Primary Care Provider Frances Wood MD Primary Care Provider Unavail able Issac Wilson MD Primary Care Provider Jeri Ramírez Pcp Primary Care Provider [facility] Encounter Details Date Type Department Care Team Description 05/05/2016 Release of Information Medical Records [address] [place] [address] Abstract, Provider Social History Tobacco Use Types [...] filedocumented in this encounter Care Teams Director Life Sales Relationship Specialty Start Date End Date Issac Wilson MD PCP - General Internal Medicine 09/28/13 12/20/18 Frances Gloria MD PCP - General Internal Medicine 12/21/18 12/21/19 Issac Wilson MD PCP - General Internal Medicine 12/22/19 03/12/20 Eusebia Ramírez PCP - General Internal Medicine 03/13/20 documented as of this encounter
--- OUTSIDE RECORDS SUMMARY | 2024-12-14 17:27 | XMS_ITS | Encounter Summary ---
Author Organization [facility] Address [address] [place] [address] Care Team Providers Care Retort Press Operator Name Role Phone Issac Wilson MD Primary Care Provider Frances Wood MD Primary Care Provider Unavail able Issac Wilson MD Primary Care Provider Jeri Ramírez Pcp Primary Care Provider [facility]ailformerly [facility] e Encounter Details Date Type Department Care Team Description 04/04/2018 [facility] Medical Records [address] [place] [address] Senthil Reyes MD Social History Tobacco Use [...] on filedocumented in this encounter Care Teams Retort Press Operator Relationship Specialty Start Date End Date Issac Wilson MD PCP - General Internal Medicine 09/28/13 12/20/18 Frances Gloria MD PCP - General Internal Medicine 12/21/18 12/21/19 Issac Wilson MD PCP - General Internal Medicine 12/22/19 03/12/20 Eusebia Ramírez PCP - General Internal Medicine 03/13/20 documented as of this encounter
--- OUTSIDE RECORDS SUMMARY | 2024-12-14 17:27 | XMS_ITS | Encounter Summary ---
Author Organization [facility] Address [address] [place] [address] Care Team Providers Care Medical Fee Clerk Name Role Phone Issac Wilson MD Primary Care Provider Frances Wood MD Primary Care Provider [facility] Issac Wilson MD Primary Care Provider Jeri Ramírez, Pcp Primary Care Provider Unavailabl e Reason for Visit * Reason Comments E-prescribe Rx Request Encounter Details Date Type Department Care Team Description 05/26/2016 Refill Adult Medicine [address] [address] Issac Wilson MD E-prescribe Rx Request Social [...] Payor: AETNA / Plan: EPO $15 [facility] [id number] / Product Type: PPO [id number] documented in this encounter Plan of Treatment Not on file documented as of this encounter Visit Diagnoses Not on filedocumented in this encounter Care Teams Medical Fee Clerk Relationship Specialty Start Date End Date Issac Wilson MD PCP - General Internal Medicine 09/28/13 12/20/18 Frances Gloria MD PCP - General Internal Medicine 12/21/18 12/21/19 Issac Wilson MD PCP - General Internal Medicine 12/22/19 03/12/20 Eusebia Ramírez PCP - General Internal Medicine 03/13/20 documented as of this encounter
--- OUTSIDE RECORDS SUMMARY | 2024-12-14 17:27 | XMS_ITS | Encounter Summary ---
Author Organization [facility] Address [address] [place] [address] Care Team Providers Care Hot Roll Inspector Name Role Phone Frances Gloria MD Primary Care Provider Issac Reynolds MD Primary Care Provider Jeri Ramírez, Pcp Primary Care Provider [facility] e Encounter Details Date Type Department Care Team Description 08/31/2019 Pt. Non Urgent Medical Question Adult Medicine [address] [address] [address] [address] Social History Tobacco Use Types Packs/Day Years [...] on filedocumented in this encounter Care Teams Hot Roll Inspector Relationship Specialty Start Date End Date Frances Gloria MD PCP - General Internal Medicine 12/21/18 12/21/19 Issac Wilson MD PCP - General Internal Medicine 12/22/19 03/12/20 Darrell, Eusebia PCP - General Internal Medicine 03/13/20 documented as of this encounter
--- OUTSIDE RECORDS SUMMARY | 2024-12-14 17:27 | XMS_ITS | Encounter Summary ---
Author Organization [facility] Address [address] [place] [address] Care Team Providers Care Software Engineer Backend Name Role Phone Roscoe Strickland MD Primary Care Provider Issac Barragan MD Primary Care Provider Frances Wood MD Primary Care Provider Issac Reynolds MD Primary Care Provider Jeri Ramírez Pcp Primary Care Provider Miryam sherman Encounter Details Date Type Department Care Team Description 09/01/2012 Release of Information Medical Records [address] [place] [address] Abstract, Provider Social History Tobacco Use Types [...] on filedocumented in this encounter Care Teams Software Engineer Backend Relationship Specialty Start Date End Date Roscoe [...]
--- OUTSIDE RECORDS SUMMARY | 2024-12-14 17:27 | XMS_ITS | Encounter Summary ---
Author Organization [facility] Address [address] [place] [address] Care Team Providers Care Sales Receptionist Name Role Phone Issac Wilson MD Primary Care Provider Frances Wood MD Primary Care Provider [facility] Issac Wilson MD Primary Care Provider Jeri Ramírez, Pcp Primary Care Provider Unavailabl e Reason for Visit * Reason Onset Date Comments Mychart Rx Refill 09/28/2016 Encounter Details Date Type Department Care Team Description 09/28/2016 Refill Medicine/Pediatrics - [address] [id number] Roscoe Díaz MD Mychart Rx Refill Social [...] MG tablet [Roscoe Díaz MD] Preferred pharmacy: [facility] [id number] AT Comment: Need new prescriptions please. Thank you. Medication renewals requested in this message routed to other providers: atorvastatin (LIPITOR) 20 MG tablet [Issac Wilson MD] documented in this encounter Plan of Treatment Not on file documented as of this encounter Visit Diagnoses Not on filedocumented in this encounter Care Teams Sales Receptionist Relationship Specialty Start Date End Date Issac Wilson MD PCP - General Internal Medicine 09/28/13 12/20/18 Frances Gloria MD PCP - General Internal Medicine 12/21/18 12/21/19 Issac Wilson MD PCP - General Internal Medicine 12/22/19 03/12/20 [facility] PCP - General Internal Medicine 03/13/20 documented as of this encounter
--- OUTSIDE RECORDS SUMMARY | 2024-12-14 17:27 | XMS_ITS | Encounter Summary ---
Author Organization [facility] Address [address] [place] [address] Care Team Providers Care Molding Machine Setter Name Role Phone Frances Gloria MD Primary Care Provider Issac Reynolds MD Primary Care Provider Jeri ervin [facility], Pcp Primary Care Provider Unavailabl e Reason for Visit * Reason Onset Date Comments immunizations 10/31/2019 Encounter Details Date Type Department Care Team Description 10/31/2019 Telephone Adult Medicine [address] [address] Frances Gloria MD immunizations Social History Tobacco [...] DRE/PPO POS / Plan: PPO $25 [place] [id number] / Product Type: PPO [id number] Pt wants all imunization record printed and placed in pt meat pickler Patient is requesting a list of their [...] in this encounter Care Teams Molding Machine Setter Relationship Specialty Start Date End Date Frances Gloria MD PCP - General Internal Medicine 12/21/18 12/21/19 Issac Wilson MD PCP - General Internal Medicine 12/22/19 03/12/20 [facility], Pcp PCP - General Internal Medicine 03/13/20 documented as of this encounter
--- OUTSIDE RECORDS SUMMARY | 2024-12-14 17:27 | XMS_ITS | Encounter Summary ---
Author Organization [facility] Address [address] [facility] [address] [place] [address] Phone Care Team Providers Care Senior Linux Unix Engineer Name Role Phone Etelvina Sears MD Primary Care Provider [phone] Encounter Details Date Type Department Care Team (Late st Contact Info) Description 02/25/2023 Procedure Pass MGP IMG 3DCTMR MG [address] [place] [address] Social History Tobacco Use Types Packs/Day Years [...] filedocumented in this encounter Care Teams Senior Linux Unix Engineer Relationship Specialty Start Date End Date Etelvina Sears MD [address] [place] [phone] PCP - General Internal Medicine 05/25/22 documented as of this encounter Additional Source Comments The information contained in this document represents components of the legal health record. It is not the complete legal health record.[facility]
--- OUTSIDE RECORDS SUMMARY | 2024-12-14 17:27 | XMS_ITS | Encounter Summary ---
Author Organization [facility] Address [address] [place] [address] Care Team Providers Care Harness Worker Name Role Phone Roscoe Strickland MD Primary Care Provider Issac Barragan MD Primary Care Provider Frances Wood MD Primary Care Provider [facility] Issac Short MD Primary Care Provider Jeri Ramírez, Pcp Primary Care Provider Unavailjonatan sherman Encounter Details Date Type Department Care Team Description 02/23/2011 Ethics Instructor Report Medical Records [address] [place] [address] Riccardo Hernandez MD, MD Social History Tobacco [...] on filedocumented in this encounter Care Teams Harness Worker Relationship Specialty Start Date End Date Roscoe [...]
--- OUTSIDE RECORDS SUMMARY | 2024-12-14 17:27 | XMS_ITS | Encounter Summary ---
Author Organization [facility] Address [address] [place] [address] Care Team Providers Care Welt Beater Name Role Phone Issac Wilson MD Primary Care Provider Frances Wood MD Primary Care Provider Issac Reynolds MD Primary Care Provider Jeri Ramírez, Pcp Primary Care Provider Unavailjonatan e Encounter Details Date Type Department Care Team Description 01/10/2018 Refill Physiatry - [address] [address] Kirill Guardado DO Social History Tobacco Use [...] MG capsule [Kirill Guardado DO] Preferred pharmacy: [facility] [address] [place] [address] RICHI KNIGHT AT [facility] Comment: documented in this encounter Plan of Treatment Not on file documented as of this encounter Visit Diagnoses Diagnosis Chronic pain syndrome documented in this encounter Care Teams Welt Beater Relationship Specialty Start Date End Date Issac Wilson MD PCP - General Internal Medicine 09/28/13 12/20/18 Frances Gloria MD PCP - General Internal Medicine 12/21/18 12/21/19 Issac Wilson MD PCP - General Internal Medicine 12/22/19 03/12/20 [facility], Pcp PCP - General Internal Medicine 03/13/20 documented as of this encounter
--- OUTSIDE RECORDS SUMMARY | 2024-12-14 17:27 | XMS_ITS | Encounter Summary ---
Author Organization [facility] Address [address] [place] [address] Care Team Providers Care Urgent Care Name Role Phone Issac Wilson MD Primary Care Provider Frances Wood MD Primary Care Provider Unavail able Issac Wilson MD Primary Care Provider Jeri Ramírez Pcp Primary [facility] Encounter Details Date Type Department Care Team Description 05/07/2016 Telephone Radiology - [place] [address] [place] [address] Issac Wilson MD Social History Tobacco Use [...] on filedocumented in this encounter Care Teams Urgent Care Relationship Specialty Start Date End Date Issac Wilson MD PCP - General Internal Medicine 09/28/13 12/20/18 Frances Gloria MD PCP - General Internal Medicine 12/21/18 12/21/19 Isasc Wilson MD PCP - General Internal Medicine 12/22/19 03/12/20 Eusebia Ramírez PCP - General Internal Medicine 03/13/20 documented as of this encounter
--- OUTSIDE RECORDS SUMMARY | 2024-12-14 17:27 | XMS_ITS | Encounter Summary ---
Author Organization [facility] Address [address] [place] [address] Care Team Providers Care Steward/Stewardess Room Name Role Phone Roscoe Strickland MD Primary Care Provider Issac Barragan MD Primary Care Provider Frances Wood MD Primary Care Provider [facility] Issac Short MD Primary Care Provider Jeri Ramírez Pcp Primary Care Provider Unavailjonatan sherman Encounter Details Date Type Department Care Team Description 10/12/2012 Book Repairer Report Medical Records [address] [place] [address] Rc Razo MD Social History Tobacco Use [...] on filedocumented in this encounter Care Teams Steward/Stewardess Room Relationship Specialty Start Date End Date Roscoe [...]
--- OUTSIDE RECORDS SUMMARY | 2024-12-14 17:27 | XMS_ITS | Encounter Summary ---
Author Organization [facility] Address [address] [place] [address] Care Team Providers Care Malt Specifications Control Assistant Name Role Phone Issac Wilson MD Primary Care Provider Frances Wood MD Primary Care Provider Unavail able Issac Wilson MD Primary Care Provider Jeri Ramírez Pcp Primary Care Provider [facility] Encounter Details Date Type Department Care Team Description 04/16/2016 Hospital Medical Records [address] [place] [address] Santhosh Rios MD Social History Tobacco Use [...] on filedocumented in this encounter Care Teams Malt Specifications Control Assistant Relationship Specialty Start Date End Date Issac Wilson MD PCP - General Internal Medicine 09/28/13 12/20/18 Frances Gloria MD PCP - General Internal Medicine 12/21/18 12/21/19 Issac Wilson MD PCP - General Internal Medicine 12/22/19 03/12/20 Eusebia Ramírez PCP - General Internal Medicine 03/13/20 documented as of this encounter
--- OUTSIDE RECORDS SUMMARY | 2024-12-14 17:27 | XMS_ITS | Encounter Summary ---
Author Organization [facility] Address [address] [facility] [address] [place] [address] Phone Care Team Providers Care Plumbing Foreman Name Role Phone Etelvina Sears MD Primary Care Provider [phone] Encounter Details Date Type Department Care Team ([facility] st Contact Info) Description 08/06/2023 Procedure Pass [facility] [address] [place] [phone] Social History Tobacco Use Types Packs/Day [...] on filedocumented in this encounter Care Teams Plumbing Foreman Relationship Specialty Start Date End Date Etelvina Sears MD [address] [place] [phone] PCP - General Internal Medicine 05/25/22 documented as of this encounter Additional Source Comments The information contained in this document represents components of the legal health record. It is not the complete legal health record.[facility]
--- OUTSIDE RECORDS SUMMARY | 2024-12-14 17:27 | XMS_ITS | Encounter Summary ---
Author Organization [facility] Address [address] [place] [address] Care Team Providers Care Bag Machine Tender Name Role Phone Roscoe Strickland MD Primary Care Provider Issac Barragan MD Primary Care Provider Frances Wood MD Primary Care Provider [facility] Issac Short MD Primary Care Provider Jeri Ramírez Pcp Primary Care Provider Unavailjonatan e Encounter Details Date Type Department Care Team Description 05/26/2010 [facility] Medical Records [address] [place] [address] Quiana Cosme MD Social History Tobacco Use [...] on filedocumented in this encounter Care Teams Bag Machine Tender Relationship Specialty Start Date End Date Roscoe [...]
--- OUTSIDE RECORDS SUMMARY | 2024-12-14 17:27 | XMS_ITS | Encounter Summary ---
Author Organization [facility] Address [address] [facility] [address] [place] [address] Phone Care Team Providers Care Health And Safety Consultant Name Role Phone Etelvina Sears MD Primary Care Provider [phone] Encounter Details Date Type Department Care Team (Late st Contact Info) Description 08/21/2022 Procedure Pass [facility] [address] [place] [id number] Social History Tobacco Use Types Packs/Day Years [...] on filedocumented in this encounter Care Teams Health And Safety Consultant Relationship Specialty Start Date End Date Etelvina Sears MD [address] [place] [phone] PCP - General Internal Medicine 05/25/22 documented as of this encounter Additional Source Comments The information contained in this document represents components of the legal health record. It is not the complete legal health record.[facility]
--- OUTSIDE RECORDS SUMMARY | 2024-12-14 17:27 | XMS_ITS | Encounter Summary ---
Author Organization [facility] Address [address] [facility] [address] [place] [address] Phone Care Team Providers Care Migratory Farm Hand Name Role Phone Etelvina Sears MD Primary Care Provider [phone] Encounter Details Date Type Department Care Team ([facility] st Contact Info) Description 08/09/2023 Procedure Pass MGP IMG 3DCTMR MG [address] [place] [address] Social History Tobacco Use Types Packs/Day Years [...] on filedocumented in this encounter Care Teams Migratory Farm Hand Relationship Specialty Start Date End Date Etelvina Sears MD [address] [place] [phone] PCP - General Internal Medicine 05/25/22 documented as of this encounter Additional Source Comments The information contained in this document represents components of the legal health record. It is not the complete legal health record.[facility]
--- OUTSIDE RECORDS SUMMARY | 2024-12-14 17:27 | XMS_ITS | Encounter Summary ---
Author Organization [facility] Address [address] [facility] [address] [place] [address] Phone Care Team Providers Care Cross Enterprise Integrator Name Role Phone Eetlvina Sears MD Primary Care Provider [phone] Encounter Details Date Type Department Care Team (Late st Contact Info) Description 08/06/2023 Procedure Pass [facility] [address] [facility], 6th [place] [address] Social History Tobacco Use Types Packs/Day Years [...] on filedocumented in this encounter Care Teams Cross Enterprise Integrator Relationship Specialty Start Date End Date Etelvina Sears MD [address] [facility] [address] [place] [phone] PCP - General Internal Medicine 05/25/22 documented as of this encounter Additional Source Comments The information contained in this document represents components of the legal health record. It is not the complete legal health record.[facility]
--- OUTSIDE RECORDS SUMMARY | 2024-12-14 17:27 | XMS_ITS | Encounter Summary ---
Author Organization [facility] Address [address] [place] [address] Care Team Providers Care Communications Professor Name Role Phone Roscoe Strickland MD Primary Care Provider Issac Barragan MD Primary Care Provider Frances Wood MD Primary Care Provider Issac Reynolds MD Primary Care Provider Jeri Ramírez Pcp Primary Care Provider Miryam sherman Encounter Details Date Type Department Care Team Description 05/04/2013 Release of Information Medical Records [address] [place] [address] Abstract, Provider Social History Tobacco Use Types [...] on filedocumented in this encounter Care Teams Communications Professor Relationship Specialty Start Date End Date Roscoe [...]
--- OUTSIDE RECORDS SUMMARY | 2024-12-14 17:27 | XMS_ITS | Encounter Summary ---
Author Organization [facility] Address [address] [place] [address] Care Team Providers Care International First Officer Name Role Phone Issac Wilson MD Primary Care Provider Frances Wood MD Primary Care Provider Unavail able Issac Wilson MD Primary Care Provider Jeri Ramírez Pcp Primary Care Provider [facility] Encounter Details Date Type Department Care Team Description 04/15/2016 Hospital Medical Records [address] [place] [address] Brendon Redmond MD Social History Tobacco Use [...] on filedocumented in this encounter Care Teams International First Officer Relationship Specialty Start Date End Date Issac Wilson MD PCP - General Internal Medicine 09/28/13 12/20/18 Frances Gloria MD PCP - General Internal Medicine 12/21/18 12/21/19 Issac Wilson MD PCP - General Internal Medicine 12/22/19 03/12/20 Eusebia Ramírez PCP - General Internal Medicine 03/13/20 documented as of this encounter
--- OUTSIDE RECORDS SUMMARY | 2024-12-14 17:27 | XMS_ITS | Encounter Summary ---
Author Organization [facility] Address [address] [place] [address] Care Team Providers Care Lead Warehouse Associate Name Role Phone Frances Gloria MD Primary Care Provider Issac Reynolds MD Primary Care Provider [facility], Pcp Primary Care Provider Unavailabl e Reason for Visit * Reason Comments E-prescribe Rx Request Encounter Details Date Type Department Care Team Description 04/03/2019 Refill Physiatry - [address] [address] Kirill Guardado DO E-prescribe Rx Request Social [...] syndrome documented in this encounter Care Teams Lead Warehouse Associate Relationship Specialty Start Date End Date Frances Gloria MD PCP - General Internal Medicine 12/21/18 12/21/19 Issac Wilson MD PCP - General Internal Medicine 12/22/19 03/12/20 [facility] Pcp PCP - General Internal Medicine 03/13/20 documented as of this encounter
--- OUTSIDE RECORDS SUMMARY | 2024-12-14 17:27 | XMS_ITS | Patient Health Record ---
[facility] Address [address] [place] [address] Care Team Providers Care Swing Manager Name Role Phone Etelvina Sears Primary Care Provider Justino Duque Unavailable [phone] Allergies Allergen (clinical drug ingredient) Drug/Non Drug [...] Status Risk Notes Problem Acquired hallux valgus (95657074) Hallux valgus (acquired), right foot (M20.11) Active confirmed Problem Acquired hammer toe of right foot (81231748950318 05) Other hammer toe(s) (acquired), right foot (M20.41) Active confirmed Problem Acquired hammer toe of left foot (83479119804027 03) Other hammer toe(s) (acquired), left foot (M20.42) Active confirmed Problem Pain in limb (55843430) Pain in unspecified foot (M79.673) Active confirmed Problem Rheumatoid arthritis (74678478) Rheumatoid arthritis involving multiple sites with positive rheumatoid factor (M05.79) Active confirmed Plan Of Treatment Pending Test Test Name Order Date X ray : Foot, left 3V 03/15/2015 60058, [id number]/INJECT, JOINT/BURSA 0 04/02/2020 Insurance Providers Payer Name Payer Address Payer Phone Subscriber Number Group Number Insured Name Patient Relationship to Insured Coverage Start Date Coverage End Date [employer] [address] [address] [place] [address] [id number] Marian Doran Self - patient is the [...]
--- OUTSIDE RECORDS SUMMARY | 2024-12-14 17:27 | XMS_ITS | Encounter Summary ---
Author Organization [facility] Address [address] [place] [address] Care Team Providers Care Stone Crusher Operator Name Role Phone Roscoe Strickland MD Primary Care Provider Issac Barragan MD Primary Care Provider Frances Wood MD Primary Care Provider Issac Reynolds MD Primary Care Provider Jeri Ramírez, Pcp Primary Care Provider [facility] Reason for Visit * Reason Onset Date Comments [facility]NA Call 01/25/2013 Encounter Details Date Type Department Care Team Description 01/25/2013 Telephone Adult Medicine [address] [address] Roscoe Strickland MD [facility]NA Call Social History [...] EST [facility] with nu-guaze daily [...] Carbajal - 01/26/2013 10:36 AM EST [phone] Lyndsay calling , states she is still [...] PM EST Lyndsay Perdomo calling back from [facility], please call her at [phone], thanks. * Telephone Encounter - Jazmin Ku R.N. - 01/25/2013 1:04 PM EST Need verbal order to use calcium alginate with silver for wound dressing * Telephone Encounter - Mer Cruz - 01/25/2013 12:13 PM EST [facility]NA CALL Which A office is calling? [employer] Full name of caller: Solange Is the [...] filedocumented in this encounter Care Teams Stone Crusher Operator Relationship Specialty Start Date End Date Roscoe Strickland MD PCP - General 02/15/07 09/27/13 Issac Wilson MD PCP - General Internal Medicine 09/28/13 12/20/18 Frances Gloria MD PCP - General Internal Medicine 12/21/18 12/21/19 Issac Wilson MD PCP - General Internal Medicine 12/22/19 03/12/20 [facility], Pcp PCP - General Internal Medicine 03/13/20 documented as of this encounter
--- OUTSIDE RECORDS SUMMARY | 2024-12-14 17:27 | XMS_ITS | Encounter Summary ---
Author Organization [facility] Address [address] [facility] [address] [place] [address] Phone Care Team Providers Care Marketing And Public Relations Manager Name Role Phone Etelvina Sears MD Primary Care Provider [phone] Encounter Details Date Type Department Care Team (Late st Contact Info) Description 06/17/2022 Procedure Pass [facility] [address] [place] [address] Social History Tobacco Use Types Packs/Day Years [...] filedocumented in this encounter Care Teams Marketing And Public Relations Manager Relationship Specialty Start Date End Date Etelvina Sears MD [address] [place] [address] PCP - General Internal Medicine 05/25/22 documented as of this encounter Additional Source Comments The information contained in this document represents components of the legal health record. It is not the complete legal health record.[facility]
--- OUTSIDE RECORDS SUMMARY | 2024-12-14 17:27 | XMS_ITS | Encounter Summary ---
Author Organization [facility] Address [address] [place] [address] Care Team Providers Care Scientific Writer Name Role Phone Frances Gloria MD Primary Care Provider Issac Reynolds MD Primary Care Provider Jeri Ramírez, Pcp Primary Care Provider [facility] Encounter Details Date Type Department Care Team Description 01/18/2019 Pt. Non Urgent Medical Question Rheumatology - [address] [address] Brendon Gale MD Fatty liver (Primary Dx) [...] 14 <20 UNITS 04/20/2019 1:50 PM EST [facility] Comment: Interpretation: Negative Test performed at [facility], [address] , [place] [id number] Toby Ding MD - Chocolate Packer 04/18/2019 8:21 AM EST 04/18/2019 8:22 AM EST Brendon Gale MD LAB Performing Organization Address [facility] Co de Phone Number [facility] * ANTI-MITOCHONDRIAL ANTIBODY (04/18/2019 8:21 AM EST) AMA QUANTITATIVE 3.6 <20 UNITS 04/19/19 20 12:05 PM EST [facility] [employer] MITOCHONDRIAL ANTIBODIES NEGATIVE NEGATIVE 04/19/2019 12:05 PM EST [facility] [employer] 04/18/2019 8:21 AM EST 04/18/2019 8:22 AM EST Brendon Gale MD LAB Performing Organization Address City/[facility] Co de Phone Number [facility] * HEPATITIS B SURFACE AB TEST (04/18/2019 8:21 AM EST) Hepatitis B surface antibody NEGATIVE NEGATIVE 04/18/2019 2:35 PM EST [facility] [employer] 04/18/2019 8:21 AM EST 04/18/2019 8:22 AM EST Brendon Gale MD LAB Performing Organization Address [facility] Co de Phone Number [facility] * HEPATITIS C VIRUS SCREEN (04/18/2019 8:21 AM EST) Hepatitis C Virus Screen NEGATIVE NEGATIVE 04/18/2019 3:14 PM EST [employer] 04/18/2019 8:21 AM EST 04/18/2019 8:22 AM EST Brendon Gale MD LAB [facility] documented in this encounter Visit Diagnoses Diagnosis Fatty liver- Primary Other chronic nonalcoholic liver disease documented in this encounter Care Teams Scientific Writer Relationship Specialty Start Date End Date Frances Gloria MD PCP - General Internal Medicine 12/21/18 12/21/19 Issca Wilson MD PCP - General Internal Medicine 12/22/19 03/12/20 [facility], Pcp PCP - General Internal Medicine 03/13/20 documented as of this encounter
--- OUTSIDE RECORDS SUMMARY | 2024-12-14 17:27 | XMS_ITS | Encounter Summary ---
Author Organization [facility] Address [address] [facility] [address] [place] [address] Phone Care Team Providers Care Nuclear Equipment Design Engineer Name Role Phone Etelvina Sears MD Primary Care Provider [phone] Encounter Details Date Type Department Care Team (Late st Contact Info) Description 02/25/2023 Procedure Pass [facility] [place] [address] [address], [address], [address] [place] [address] Social History Tobacco Use Types Packs/Day Years [...] on filedocumented in this encounter Care Teams Nuclear Equipment Design Engineer Relationship Specialty Start Date End Date Etelvina Sears MD [address] [facility] [address] [place] [phone] PCP - General Internal Medicine 05/25/22 documented as of this encounter Additional Source Comments The information contained in this document represents components of the legal health record. It is not the complete legal health record.[facility]
== END 2024-12-14 14:50 | disposition home or self-care (01) ==
LOC: HO.HWS 14:27
PROVIDERS: PCP Internal Medicine; Visit Provider Advanced Practice Midwife
DX: Z01.419 Encounter for gynecological examination (general) (routine) without abnormal findings (principal)
CPT/HCPCS: 99396; 99459

== ENCOUNTER 2024-12-19 14:54 | Outpatient (AMB) | payer BC, SELFPAY ==
--- OUTSIDE RECORDS SUMMARY | 2022-06-05 09:13 | XMS_ITS | Encounter Summary ---
Author Organization [facility] Address [address] [facility] [address] [facility] [address] [place] [address] Phone Care Team Providers Care Loop Machine Operator Name Role Phone Etelvina Sears MD Primary Care Provider [phone] Encounter Details Date Type Department Care Team (Late st Contact Info) Description 06/05/2022 10:13 AM EDT Hospital Encounter [facility] [address] [place] [address] Sierra Khan CNP [address] [place] [phone] [email or web address] Social History Tobacco Use Types Packs/Day Years [...] abnormality. IMPRESSION: Normal chest. us Sierra Khan COMPUTER FORENSICS INVESTIGATOR IMG XR CHEST Final Resul t documented in this encounter Visit Diagnoses Not on filedocumented in this encounter Care Teams Loop Machine Operator Relationship Specialty Start Date End Date Etelvina Sears MD [address] [place] [address] [place] [phone] PCP - General Internal Medicine 05/25/22 documented as of this encounter Additional Source Comments The information contained in this document represents components of the legal health record. It is not the complete legal health record.[facility]
--- OUTSIDE RECORDS SUMMARY | 2022-06-14 08:43 | XMS_ITS | Encounter Summary ---
Author Organization [facility] Address [address] [place] [address] Phone Care Team Providers Care Literacy Tutor Name Role Phone Etelvina Sears MD Primary Care Provider [phone] Encounter Details Date Type Department Care Team (Late st Contact Info) Description 06/14/2022 9:43 AM EDT Hospital Encounter [facility] [address] [place] [phone] Jesse Delatorre PA-C [address] [place] [phone] [email or web address] Social History Tobacco Use Types Packs/Day Years [...] on filedocumented in this encounter Care Teams Literacy Tutor Relationship Specialty Start Date End Date Etelvina Sears MD [address] [place] [address] PCP - General Internal Medicine 05/25/22 documented as of this encounter Additional Source Comments The information contained in this document represents components of the legal health record. It is not the complete legal health record.[facility]
--- OUTSIDE RECORDS SUMMARY | 2023-07-02 13:30 | XMS_ITS | Encounter Summary ---
Author Organization Merged With [facility] Address [address] [place] [address] Phone Care Team Providers Care Pet Store Merchandiser Name Role Phone Etelvina Sears MD Primary Care Provider [phone] Encounter Details Date Type Department Care Team (Late st Contact Info) Description 07/02/2023 2:30 PM EDT Hospital Encounter [facility] [address] [place] [id number] Jesse Delatorre PA-C [address] [place] [phone] [email or web address] Social History [...] Name Priority Date/Time Associated Diagnosis Comments XR HAND 3 OR MORE VIEWS (RIGHT) Urgent/patient waiting 07/02/2023 2:38 PM EDT Closed displaced fracture of proximal phalanx of right little finger, initial encounter documented in this encounter Results * XR HAND 3 OR MORE VIEWS (RIGHT) (07/02/2023 2:38 PM EDT) Anatomical Region Laterality Modality Hand Right Computed Radiogr aphy 07/02/2023 2:53 PM EDT Impressions 07/02/2023 3:40 PM EDT Mildly comminuted and impacted fracture of the fifth proximal phalanx with fracture line extension into the MTP joint. ATTESTATION: I, Ag Restrepo as teaching physician, have reviewed the images for this case and if necessary edited the report originally created by Marylou Clark. Narrative 07/02/2023 3:40 PM EDT XR HAND 3 OR MORE VIEWS (RIGHT) yet Referring clinician's provided indication for this examination in Epic: Pain; Trauma; S/P Fall; fall with TTP over 5th MCP, ?fracture dislocation COMPARISON: None FINDINGS: Mildly comminuted fracture centered within the proximal mid phalanx shaft with apparent lucency extending onto the articular surface of the first MTP. There is mild impaction of the fracture fragments by approximately 1 mm. No significant fracture fragment angulation or intra-articular gap. Moderate regional soft tissue swelling. Irregular ossification projecting over the dorsal aspect of the capitate is age-indeterminate and likely sequelae of prior trauma. No overlying soft tissue swelling. Procedure Note Ag Restrepo MBBS - 07/02/2023 XR HAND 3 OR MORE VIEWS (RIGHT) yet Referring clinician's provided indication for this examination in Epic:Pain; Trauma; S/P Fall; fall with TTP over 5th MCP, ?fracturedislocation COMPARISON: None FINDINGS: Mildly comminuted fracture centered within the proximal mid phalanx shaftwith apparent lucency extending onto the articular surface of the firstMTP. There is mild impaction of the fracture fragments by approximately 1mm. No significant fracture fragment angulation or intra-articular gap.Moderate regional soft tissue swelling. Irregular ossification projecting over the dorsal aspect of the capitateis age-indeterminate and likely sequelae of prior trauma. No overlyingsoft tissue swelling. IMPRESSION: Mildly comminuted and impacted fracture of the fifth proximal phalanx withfracture line extension into the MTP joint. ATTESTATION: IAg as teaching physician, have reviewed theimages for this case and if necessary edited the report originally createdby Marylou Clark. Jesse Delatorre PA-C IMG XR UPPER EXTREMITY Final R esult documented in this encounter Visit Diagnoses Not on filedocumented in this encounter Care Teams Pet Store Merchandiser Relationship Specialty Start Date End Date Etelvina Sears MD [address] [place] [address] [place] [phone] PCP - General Internal Medicine 05/25/22 documented as of this encounter Additional Source Comments The information contained in this document represents components of the legal health record. It is not the complete legal health record.[facility]
[2024-12-19 15:17] VITALS: BP 110/70; PULSE 57; TEMP 36.3; O2SAT 95; BMI 31.5
--- NOTE | 2024-12-19 15:17 | MHC.PC.OV ---
Vital Signs 12/19/24 15:17 Height 5 ft 5.5 in Weight 192 lb 2 oz BMI 31.5 BP 110/70 Blood Pressure Location Lt brachial Position Sitting Pulse 57 Pulse Source Pulse Oximeter Temp 97.3 F Temp Source Temporal Artery Scan Pulse Oximetry (%) 95 Oxygen Delivery Method Room Air Intake Visit Reasons: Cold Symptoms Allergies etanercept (From ENBREL) Allergy (Intermediate, Verified 12/19/24 15:20) RASH tofacitinib (From Xeljanz) Adverse Reaction (Intermediate, Verified 12/19/24 15:20) high LFT Medication List - Last Reconciled 12/19/24 by Etelvina Mares Po, albuterol sulfate 2.5 mg (3 mL) inhalation Q4H PRN 30 days amoxicillin-pot clavulanate 875-125 mg 1 tab PO BID ascorbic acid (vitamin C) ER (Vitamin C ER) 1,000 mg PO calcium citrate 650 mg PO DAILY cholecalciferol (vitamin D3) 50 mcg PO DAILY citalopram 20 mg PO DAILY 90 days cranberry extract 1 PO estradiol 0.01%(0.1mg/gram) pea-sized to urethra 2 times a week; 90 days inhalational spacing device (Aerovent Plus spacer) As directed levothyroxine 50 mcg PO DAILY nebulizers (AeroEclipse II Nebulizer) As directed pantoprazole 40 mg PO DAILY prednisone 4 tabs QD x 2 days then 3 tabs QD x 2 days then 2 tabs Qd x 2 days then 1 tab QD x 2 days PO daily; Rinvoq ER (upadacitinib) 15 mg PO DAILY 90 days NS rosuvastatin 5 mg PO DAILY Tobacco use date assessed: 12/19/24 Dental Screening Dental Screen Date: 12/19/24 Did you have a dental visit in the last 12 months?: Yes Did you have a dental problem in the last 6 months where you did not have access to dental care?: No Was dental information given to patient?: Patient has dentist HPI Cold Symptoms HPI Details couging 12 days sinus pressure congested, , mild sob,wheezing PFSH Medical History UTI (urinary tract infection) Osteopenia Pneumonia Elevated transaminase level Long-term use of immunosuppressant medication COVID-19 vaccine administered Hidradenitis suppurativa of left axilla Urge incontinence Hypercholesterolemia MRSA infection GERD (gastroesophageal reflux disease) Rheumatoid arthritis Hypothyroid Surgical History TMJ (sprain of temporomandibular joint) History of esophagogastroduodenoscopy (EGD) Hx of colonoscopy History of eye surgery Ulnar neuropathy at elbow of left upper extremity Plantar fasciitis, bilateral H/O tubal ligation Hx of tonsillectomy Inguinal hernia Family History Mother Myocardial infarct Father Lung cancer Paternal Uncle Bladder cancer Paternal Aunt Stomach cancer Maternal Uncle Myocardial infarct Social History Housing: House Are you a primary caregivers homecare to a significant other at home: No Do you presently have visiting nurse or other home services: No Alcohol intake: current Alcohol intake frequency: a few times a month Alcohol type: wine and hard liquor Comment: 3-4 x a month glass of wine Patient Tobacco Use Status: Never used Tobacco e-Cigarette/Vaping Use: Never Used Second Hand Smoke Exposure: No Advance Directives Date on File: 09/17/20 service: No Current occupational status: employed 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 1. Little interest or pleasure in doing things: not at all 2. Feeling down, depressed, or hopeless: not at all 3. Trouble falling or staying asleep, or sleeping too much: not at all 4. Feeling tired or having little energy: not at all 5. Poor appetite or overeating: not at all 6. Feeling bad about yourself - or that you are a failure or have let yourself or your family down: not at all 7. Trouble concentrating on things, such as reading the newspaper or watching television: not at all 8. Moving or speaking so slowly that other people could have noticed. Or the opposite - being so fidgety or restless that you have been moving around a lot more than usual: not at all 9. Thoughts that you would be better off or of hurting yourself in some way: not at all Total score: 0 Depression Screening Interpretation: Negative Depression Screening Done: Yes Source: Developed by Drs. Cristhian Olivo, Xiao Vines, Augustine Adams and colleagues, with an educational jenna from [employer]. Thrive Questionnaire Date Thrive assessed: 12/08/24 I am a: Patient What is your living situation today?: I have a steady place to live Within the past 12 months, did the food you bought not last and you didn't have the money to get more?: Never true Within the past 12 months, did you worry whether your food would run out before you got money to buy more?: Never true Do you have trouble paying for medicines?: No Do you have trouble getting transportation to medical appointments?: No Do you have trouble paying your heating and electricity bill?: No Do you have trouble taking care of your child, family member or friend?: No Do you have trouble with day-to-day activities such as bathing, preparing meals, shopping, managing finances, etc.?: No Are you currently unemployed and looking for a job?: Yes Are you interested in more education?: No Please select the resources that you would like help with: None Currently or been in a relationship where the following occur: No concerns reported THRIVE Score: 0 AUDIT C Alcohol Use Questionnaire (AUDIT-C) 1. How often do you have a drink containing alcohol?: 2-4 times a month 2. How many drinks containing alcohol do you have on a typical day when you are drinking?: 1 or 2 3. How often do you have six or more drinks on one occasion?: Never Total Score: 2 GUADALUPE-7 AMB Questionnaire GUADALUPE-7 Date GUADALUPE - 7 assessed: 07/20/24 Feeling nervous, anxious, or on edge: 0 = Not at all Not being able to stop or control worryin = Not at all Worrying too much about different things: 0 = Not at all Trouble relaxin = Not at all Being so restless that it is hard to sit still: 0 = Not at all Becoming easily annoyed or irritable: 0 = Not at all Feeling afraid as if something awful might happen: 0 = Not at all Total GUADALUPE-7 score (0-4 normal; 5-9 mild; 10-14 moderate; 15-21 severe): 0 Source: Developed by Drs. Cristhian Olivo, Xiao Vines, Augustine Adams and colleagues, with an educational jenna from [employer]. Physical exam (Primary Care) Vital Signs: Last Vital Signs Temp 97.3 F 12/19/24 15:17 Pulse 57 12/19/24 15:17 BP 110/70 12/19/24 15:17 Pulse Ox 95 12/19/24 15:17 Oxygen Delivery Method Room Air 12/19/24 15:17 BMI result Body Mass Index 31.5 Tobacco/Smoking Status: Tobacco use Status Tobacco use date assessed 12/19/24 12/19/24 15:21 Patient Tobacco Use Status Never used Tobacco 12/19/24 15:21 e-Cigarette/Vaping Use Never Used 12/19/24 15:21 PHQ-9: PHQ-9 Score PHQ-9: Total score 0 12/19/24 18:31 Depression Screening Interpretation: Negative Thrive Assessment: Date of Thrive Assessment Date Thrive assessed 12/08/24 12/19/24 15:21 Currently or been in a relationship where the following occur: No concerns reported Const General: alert; No acute distress Eyes Conjunctivae: conjunctivae normal Resp Other: Wheezing bilateral with rhonchi Cardio Rate: regular rate Rhythm: regular rhythm GI Inspection: Yes normal to inspection Extrem General: Yes normal to inspection and No edema Coding Level of Care Code Est Pt Level 4 (27230) Complex EM visit Add On G2211 Diagnoses Impaired fasting blood sugar R73.01 Acquired hypothyroidism E03.9 Hypothyroidism type: acquired Obesity (BMI 30.0-34.9) E66.9 Hypercholesterolemia E78.00 Generalized anxiety disorder F41.1 Bruxism, sleep-related G47.63 Gastroesophageal reflux disease without esophagitis K21.9 Esophagitis presence: without esophagitis Rheumatoid arthritis of multiple sites with negative rheumatoid factor M06.09 Rheumatoid arthritis location: multiple sites Rheumatoid factor presence: without rheumatoid factor Avascular necrosis of femur, unspecified laterality M87.059 Laterality: unspecified laterality Moderate persistent asthma with exacerbation J45.41 Asthma persistence: persistent Asthma severity: moderate Sinusitis J32.9 Sinusitis location: frontal Assessment & Plan Assessment & Plan (1) Impaired fasting blood sugar: Code(s): R73.01 - Impaired fasting glucose Category: Medical Plan: Decrease the amount of carbohydrate intake, pasta, bread, rice and potatoes are all sugar and that is aside from all the sweet stuff, remember that fruits are good but they are Sweet also. Noted last hemoglobin A1c was 6.1 (2) Hypothyroid: Code(s): E03.9 - Hypothyroidism, unspecified Category: Medical Qualifiers: Hypothyroidism type: acquired Qualified Code(s): E03.9 - Hypothyroidism, unspecified Plan: Continue with thyroid medication (3) Obesity (BMI 30.0-34.9): Code(s): E66.9 - Obesity, unspecified Category: Medical Plan: Diet and exercise (4) Hypercholesterolemia: Code(s): E78.00 - Pure hypercholesterolemia, unspecified Category: Medical Plan: Avoid fried foods, chicken skin, eggs, butter margarine, pastries and meat. Be it pork or beef they have a lot of cholesterol on rosuvastatin 5 mg once a day (5) Generalized anxiety disorder: Code(s): F41.1 - Generalized anxiety disorder Category: Medical Plan: Continue with citalopram (6) Bruxism, sleep-related: Code(s): G47.63 - Sleep related bruxism Category: Medical Plan: Patient was advised to see dentist for oral appliance (7) GERD (gastroesophageal reflux disease): Comment: EGD with dilation Small sliding hiatal hernia Reflux precautions Continue pantoprazole 40 mg b.i.d. within try to wean back to pantoprazole 40 mg daily Call with progress, if need to change PPI may do so Code(s): K21.9 - Gastro-esophageal reflux disease without esophagitis Category: Medical Qualifiers: Esophagitis presence: without esophagitis Qualified Code(s): K21.9 - Gastro-esophageal reflux disease without esophagitis Plan: Avoid the foods that causes that usually spicy foods, tomato products, juices, coffee, soda and foods that your sensitive to. After eating do not lie down, allow 3-4 hours before in lie down. And keep the head of bed above 30 degrees to avoid the acid from going up. (8) Rheumatoid arthritis: Comment: Onset ~ 2003, RF positive. Treated with methotrexate and Remicade (failing response), changed to Humira ~2005 and combination helpful. 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 Off/on meds late [id number]. Enbrel stopped because of recurrent infections. Leflunomide caused skin rash, summer 2013. Orencia started 2013; methotrexate added 12/29 but stopped due to LFT elevations Xeljanz in place of Orencia Feb 2015 - helpful but further LFT elevations 02/03. Rinvoq in place of Xeljanz 01/2020 - doses at 15 mg 5 days a week Code(s): M06.9 - Rheumatoid arthritis, unspecified Category: Medical Qualifiers: Rheumatoid arthritis location: multiple sites Rheumatoid factor presence: without rheumatoid factor Qualified Code(s): M06.09 - Rheumatoid arthritis without rheumatoid factor, multiple sites Plan: Continue to follow-up with Rheumatology (9) AVN of femur: Code(s): M87.059 - Idiopathic aseptic necrosis of unspecified femur Category: Medical Qualifiers: Laterality: unspecified laterality Qualified Code(s): M87.059 - Idiopathic aseptic necrosis of unspecified femur Plan: Patient has seen the Orthopedics and nonsurgical (10) Asthma exacerbation: Code(s): J45.901 - Unspecified asthma with (acute) exacerbation Category: Medical Qualifiers: Asthma persistence: persistent Asthma severity: moderate Qualified Code(s): J45.41 - Moderate persistent asthma with (acute) exacerbation Plan: Patient has nebulizer at home. And so no need for prescription for albuterol (11) Sinusitis: Code(s): J32.9 - Chronic sinusitis, unspecified Category: Medical Qualifiers: Sinusitis location: frontal Plan History of Present Illness The patient is a 59-year-old obese female presenting for follow-up on chronic medical conditions and evaluation of an acute respiratory illness. She has been experiencing symptoms of cough, sore throat, and sinus pressure in her forehead and under her eyes for the past 12 days, without fever. She reports associated shortness of breath when walking and has been using a nebulizer at home. She has tested negative for COVID-19 multiple times during this illness. The patient has a history of prediabetes with an impaired glucose tolerance, with a recent hemoglobin A1c of 6.1% in October, which has been trending upward from 5.5% in 2022 and 5.8% in 2021. Her medical history is also significant for hypercholesterolemia, managed with rosuvastatin 5 mg, with a recent LDL of 114 mg/dL and triglycerides of 133 mg/dL, showing significant improvement. She has hypothyroidism and is stable on medication. Her musculoskeletal history includes rheumatoid arthritis, for which she follows with rheumatology, and osteopenia, with her last bone density scan in October 2021. She has a history of avascular necrosis, which required mandibular reconstruction in 2023 and affects her bilateral distal femoral condyles, for which she was advised physical therapy by orthopedics in September. Other history includes a stable left lung pulmonary nodule with a suggested one-year follow-up, a colonoscopy in June 2022 that found a tubular adenoma, generalized anxiety disorder treated with citalopram, and a history of bruxism. A sleep study in November 2023 showed no evidence of obstructive sleep apnea but revealed oxygen desaturation to 86%, for which a referral to sleep dentistry was recommended. She has had chronically elevated liver enzymes. Health Maintenance The patient's annual physical exam will be rescheduled for when she recovers from her current illness. She was advised to follow up with specialist care, including dermatology, and to see a dentist for her bruxism. She was reminded that her mammogram is due. Social History - Reports losing weight. - Diet: Reports she has not been consuming much sugar. Review of Systems - Constitutional: Denies fever. - HEENT: Reports sore throat, pain with swallowing, and pressure in forehead and underneath eyes for 12 days. - Respiratory: Reports cough, wheezing, and shortness of breath with walking. Physical Exam - Respiratory: Auscultation reveals bilateral wheezing and rhonchi. - HEENT: Examination of the nose reveals significant congestion. Results - Labs (October 18 results): - Normal blood count with no anemia. - Normal electrolytes and renal function. - Blood sugar: 114 mg/dL. - Hemoglobin A1c: 6.1%. - Elevated liver enzymes. - LDL: 114 mg/dL. - Triglycerides: 133 mg/dL. - Thyroid function is normal. - Tests and Diagnostics: - Sleep study (November 2023): No evidence of obstructive sleep apnea, with oxygen desaturation to 86%. - Colonoscopy (June 2022): Revealed a tubular adenoma. - CT scan (September 15, 2024): Showed a stable pulmonary nodule. - Home COVID-19 testing: Negative on multiple occasions. Plan Patient was informed and verbally consented to the use of an ambient scribe for clinic note documentation during this visit. 1. Acute Bronchitis The patient presents with a 12-day history of cough, sinus pressure, sore throat, and wheezing. Physical examination confirmed bilateral wheezing and rhonchi. A tapering course of prednisone and a 7-day course of Augmentin twice daily were prescribed. The patient was advised to continue using her nebulizer but declined an albuterol inhaler. She was informed that steroids might elevate her blood sugar. If symptoms do not improve, a chest x-ray will be ordered. RSV vaccination was recommended given her asthmatic symptoms. 2. Prediabetes The patient's hemoglobin A1c was noted to be 6.1%, an increase from prior readings. The plan is to continue encouraging diet and exercise. 3. Hypercholesterolemia Her cholesterol levels have improved significantly, with an LDL of 114 mg/dL. She will continue rosuvastatin 5 mg once daily. 4. Hypothyroidism Thyroid function is normal on her current regimen. The plan is to continue the current thyroid medication. 5. Generalized Anxiety Disorder Continue citalopram as prescribed. 6. Avascular Necrosis The patient has a history of AVN in the mandible and bilateral distal femoral condyles. She is to continue with the non-surgical, exercise-based management plan recommended by orthopedics for her hips. Discussion Notes I have reviewed the patient's extensive medical history, including recent specialist consultations with neurology, orthopedics, and pulmonology. I discussed the management of her acute respiratory illness, explaining the rationale for prescribing a tapering course of prednisone for the wheezing and an antibiotic, Augmentin, for a possible secondary bacterial infection. I cautioned her that the prednisone may cause a temporary increase in her blood sugar levels. We reviewed her recent lab work, noting the favorable decrease in her cholesterol but also the concerning upward trend in her hemoglobin A1c. I recommended she receive the RSV vaccination given her asthmatic symptoms. I advised her to send a portal message if she does not improve, at which point I will order a chest X-ray. We agreed to reschedule her complete physical exam for when she has recovered. I also instructed her on how to contact the on-call provider for weekend medical concerns. Patient Instructions - I have sent a prescription for prednisone to your pharmacy. - Take this exactly as prescribed; the dose will decrease over several days. - Be aware that this medication may temporarily increase your blood sugar levels. - I have also sent a prescription for an antibiotic, Augmentin. - Take one tablet twice a day for seven days. - Continue to use your nebulizer as needed for wheezing. - If your symptoms do not get better, please send me a message through the patient portal, and I will order a chest X-ray for you. - We should reschedule your yearly physical exam for a later date when you are feeling well. - Consider getting the RSV vaccine, as it may help protect you from severe lung infections. - Continue taking all of your other regular medications as prescribed. - If you need to speak with a doctor over the weekend, call our main office number, and they will connect you with the on-call provider. Medications: New prednisone 4 tabs QD x 2 days then 3 tabs QD x 2 days then 2 tabs Qd x 2 days then 1 tab QD x 2 days PO daily; 20 tabs 0RF J45.901 - Unspecified asthma with (acute) exacerbation, J45.909 - Unspecified asthma, uncomplicated amoxicillin-pot clavulanate 875-125 mg 1 tab PO BID 14 tabs 0RF J45.901 - Unspecified asthma with (acute) exacerbation
--- OUTSIDE RECORDS SUMMARY | 2024-12-19 17:59 | XMS_ITS | Encounter Summary ---
Author Organization [facility] Address [address] [place] [address] Phone Care Team Providers Care Research Program Internship Name Role Phone Etelvina Sears MD Primary Care Provider [phone] Encounter Details Date Type Department Care Team (Late st Contact Info) Description 06/17/2022 Procedure Pass [facility] [address] [place] [address] Social History Tobacco Use Types Packs/Day Years [...] on filedocumented in this encounter Care Teams Research Program Internship Relationship Specialty Start Date End Date Etelvina Sears MD [address] [place] [address] PCP - General Internal Medicine 05/25/22 documented as of this encounter Additional Source Comments The information contained in this document represents components of the legal health record. It is not the complete legal health record.[facility]
--- OUTSIDE RECORDS SUMMARY | 2024-12-19 17:59 | XMS_ITS | Encounter Summary ---
Author Organization [facility] Address [address] [place] [address] Phone Care Team Providers Care Site Foreman Name Role Phone Etelvina Sears MD Primary Care Provider [phone] Encounter Details Date Type Department Care Team (Late st Contact Info) Description 12/10/2022 Procedure Pass MRI, [facility] [address] [place] [address] Social History Tobacco Use Types [...] on filedocumented in this encounter Care Teams Site Foreman Relationship Specialty Start Date End Date Etelvina Sears MD [address] [place] [phone] PCP - General Internal Medicine 05/25/22 documented as of this encounter Additional Source Comments The information contained in this document represents components of the legal health record. It is not the complete legal health record.[facility]
--- OUTSIDE RECORDS SUMMARY | 2024-12-19 17:59 | XMS_ITS | Clinical Summary ---
Author Organization [facility] Address [address] [address] Phone Care Team Providers Care Healthcare Advisory Services Manager Name Role Phone Etelvina Sears MD Primary Care Provider [phone] Allergies Active Allergy Reactions Criticality Noted Date [...] abscesses due to MRSA. Off/on meds late [id number]. Enbrel stopped because of recurrent infections. Leflunomide [...] this topic Medical Devices Implanted Type Area Drum Worker Device Identifier Shelf Expiration Date Model / Serial / Lot Tmj Unilateral Implant Pt Andreea Implanted:Qty: 1 on 08/06/2023 by Nick Reyes MD, DDS at [facility] Right: Face 03/15/2025 [id number] / / [id number] Insurance [place] [facility] [employer] [facility] [employer] Advance Directives For more information, please contact: [phone] (9AM - 5PM [facility], Wednesday-Wednesday) * Full Code (Latest Code Status [...] Code Status Confirmed With: Patient Care Teams Healthcare Advisory Services Manager Relationship Specialty Start Date End Date Etelvina Sears MD [address] [place] [phone] PCP - General Internal Medicine 05/25/22 Additional Source Comments The information contained in this document represents components of the legal health record. It is not the complete legal health record.[facility]
--- OUTSIDE RECORDS SUMMARY | 2024-12-19 17:59 | XMS_ITS | Encounter Summary ---
Author Organization [facility] Address [address] [place] [address] Phone Care Team Providers Care Museum Exhibit Technician Name Role Phone Etelvina Sears MD Primary Care Provider [phone] Encounter Details Date Type Department Care Team (Late st Contact Info) Description 08/06/2023 Procedure Pass [facility], [place] [address] [place] [address] Social History Tobacco Use Types Packs/Day Years [...] on filedocumented in this encounter Care Teams Museum Exhibit Technician Relationship Specialty Start Date End Date Etelvina Sears MD [address] [place] [phone] PCP - General Internal Medicine 05/25/22 documented as of this encounter Additional Source Comments The information contained in this document represents components of the legal health record. It is not the complete legal health record.[facility]
--- OUTSIDE RECORDS SUMMARY | 2024-12-19 17:59 | XMS_ITS | Encounter Summary ---
Author Organization [facility] Address [address] [place] [address] Phone Care Team Providers Care Rail Car Painter/Sandblaster Name Role Phone Etelvina Sears MD Primary Care Provider [phone] Encounter Details Date Type Department Care Team (Late st Contact Info) Description 02/25/2023 Procedure Pass [facility] [place], [place] [address], [address], [address] [place] [address] Social History Tobacco Use Types Packs/Day Years [...] on filedocumented in this encounter Care Teams Rail Car Painter/Sandblaster Relationship Specialty Start Date End Date Etelvina Sears MD [address] [facility] [address] [place] [phone] PCP - General Internal Medicine 05/25/22 documented as of this encounter Additional Source Comments The information contained in this document represents components of the legal health record. It is not the complete legal health record.[facility]
--- OUTSIDE RECORDS SUMMARY | 2024-12-19 17:59 | XMS_ITS | Clinical Summary ---
Author Organization [facility] Address [address] [place] [address] Care Team Providers Care Tip Cutter Name Role Phone Unavailable Primary Care Provider Unavailabl e Surgical History Surgery Date Site/Laterality Comments TUBAL LIGATION PROCEDURE: HISTORICAL TUBAL LIGATION HERNIA REPAIR Bilateral PROCEDURE: HISTORICAL HERNIA REPAIR/ING; COMMENT: around age 8 y/o BLADDER SUSPENSION 2010 PROCEDURE: HISTORICAL BLADDER SUSPENSION; COMMENT: Dr. 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 Off/on meds late [id number]. Enbrel stopped because of recurrent infections. Leflunomide [...] RESULTING AGENCY - 07/06/2018 4:50 PM EDT [id number] THINPREP PAP, IMAGED: NEGATIVE FOR SQUAMOUS INTRAEPITHELIAL [...]
--- OUTSIDE RECORDS SUMMARY | 2024-12-19 17:59 | XMS_ITS | Patient Health Record ---
Author Organization [facility] Address [address] [place] [address] Care Team Providers Care Boom Crane Operator Name Role Phone Etelvina Sears Primary Care Provider Justino Duque Unavailable [phone] Allergies Allergen (clinical drug ingredient) Drug/Non Drug [...] Status Risk Notes Problem Acquired hallux valgus (55979702) Hallux valgus (acquired), right foot (M20.11) Active confirmed Problem Acquired hammer toe of right foot (62201881516259 05) Other hammer toe(s) (acquired), right foot (M20.41) Active confirmed Problem Acquired hammer toe of left foot (78348717098317 03) Other hammer toe(s) (acquired), left foot (M20.42) Active confirmed Problem Pain in limb (98228268) Pain in unspecified foot (M79.673) Active confirmed Problem Rheumatoid arthritis (22928323) Rheumatoid arthritis involving multiple sites with positive rheumatoid factor (M05.79) Active confirmed Plan Of Treatment Pending Test Test Name Order Date X ray : Foot, left 3V 03/15/2015 12627, L7685-TEWSV/INJECT, JOINT/BURSA 0 04/02/2020 Insurance Providers Payer Name Payer Address Payer Phone Subscriber Number Group Number Insured Name Patient Relationship to Insured Coverage Start Date Coverage End Date Blue Benefits [address] [address] [place] [address] [id number] Marian Doran Self - patient is the [...]
--- OUTSIDE RECORDS SUMMARY | 2024-12-19 17:59 | XMS_ITS | Encounter Summary ---
Author Organization [facility] Address [address] [place] [address] Phone Care Team Providers Care Hospice Manager Name Role Phone Etelvina Sears MD Primary Care Provider [phone] Encounter Details Date Type Department Care Team (Late st Contact Info) Description 08/21/2022 Procedure Pass [facility] [address] [place] [id number] Social History Tobacco Use Types Packs/Day Years [...] on filedocumented in this encounter Care Teams Hospice Manager Relationship Specialty Start Date End Date Etelvina Sears MD [address] [place] [phone] PCP - General Internal Medicine 05/25/22 documented as of this encounter Additional Source Comments The information contained in this document represents components of the legal health record. It is not the complete legal health record.[facility]
--- OUTSIDE RECORDS SUMMARY | 2024-12-19 18:00 | XMS_ITS | Encounter Summary ---
Author Organization [facility] Address [address] [place] [address] Phone Care Team Providers Care Right Of Way Supervisor Name Role Phone Etelvina Sears MD Primary Care Provider [phone] Encounter Details Date Type Department Care Team ([facility] st Contact Info) Description 08/06/2023 Procedure Pass [facility] [address] [place] [phone] Social History Tobacco Use Types Packs/Day [...] on filedocumented in this encounter Care Teams Right Of Way Supervisor Relationship Specialty Start Date End Date Etelvina Sears MD [address] [place] [phone] PCP - General Internal Medicine 05/25/22 documented as of this encounter Additional Source Comments The information contained in this document represents components of the legal health record. It is not the complete legal health record.[facility]
--- OUTSIDE RECORDS SUMMARY | 2024-12-19 18:00 | XMS_ITS | Encounter Summary ---
Author Organization [facility] Address [address] [place] [address] Phone Care Team Providers Care Supervisor Dimension Warehouse Name Role Phone Etelvina Sears MD Primary Care Provider [phone] Encounter Details Date Type Department Care Team ([facility] st Contact Info) Description 06/17/2022 Procedure Pass [facility] [place] [address] [facility] [place] [address] Social History Tobacco Use Types Packs/Day Years [...] filedocumented in this encounter Care Teams Supervisor Dimension Warehouse Relationship Specialty Start Date End Date Etelvina Sears MD [address] [place] [address] PCP - General Internal Medicine 05/25/22 documented as of this encounter Additional Source Comments The information contained in this document represents components of the legal health record. It is not the complete legal health record.[facility]
--- OUTSIDE RECORDS SUMMARY | 2024-12-19 18:00 | XMS_ITS | Encounter Summary ---
Author Organization [facility] Address [address] [place] [address] Phone Care Team Providers Care Criminal Intelligence Specialist Name Role Phone Etelvina Sears MD Primary Care Provider [phone] Encounter Details Date Type Department Care Team ([facility] st Contact Info) Description 08/09/2023 Procedure Pass [facility] 3DCTMR MG [address] [place] [address] Social History Tobacco Use Types Packs/Day Years [...] on filedocumented in this encounter Care Teams Criminal Intelligence Specialist Relationship Specialty Start Date End Date Etelvina Sears MD [address] [place] [phone] PCP - General Internal Medicine 05/25/22 documented as of this encounter Additional Source Comments The information contained in this document represents components of the legal health record. It is not the complete legal health record.[facility]
--- OUTSIDE RECORDS SUMMARY | 2024-12-19 18:00 | XMS_ITS | Encounter Summary ---
Author Organization [facility] Address [address] [facility] [address] [facility] [address] [place] [address] Phone Care Team Providers Care Grinder Set Up Operator Universal Name Role Phone Etelvina Sears MD Primary Care Provider [phone] Reason for Referral * MRI/CAT Scan - Closed Specialty Diagnoses / Procedures Referred By Contac t Referred To Contact Radiology Diagnoses TMJ disease Procedures CT 3D Reconstruction Face CHG 3D RENDERING W/INTERP&POSTPROC DIFF WORK STATION Gabe Soriano MD Phone: tel: [email or web address] Referral ID Status Reason Start Date Expiration Date Visits Re quested Visits Authorized [id number] Closed 08/09/2023 1 1 Encounter Details Date Type Department Care Team (Late st Contact Info) Description 08/09/2023 Ancillary Orders [facility] Steffi ALY [address] [facility]th [place] [address] Gabe Soriano MD [address] [place] [address] [email or web address] TMJ disease (Primary Dx) Social History Tobacco [...] refer to the primary CT accession number [id number] for the full report indicating 3D images were created on an independent workstation and interpreted. Procedure Note Ray Harris MD - 08/13/2023 Please refer to the primary CT accession number [id number] for the fullreport indicating 3D images were created on an independent workstation andinterpreted. Etelvina Sears MD IMG CT Final Result documented in this encounter Visit Diagnoses Diagnosis TMJ disease- Primary Unspecified temporomandibular joint disorders TMJ disease Unspecified temporomandibular joint disorders documented in this encounter Care Teams Grinder Set Up Operator Universal Relationship Specialty Start Date End Date Etelvina Sears MD [address] [place] [address] PCP - General Internal Medicine 05/25/22 documented as of this encounter Additional Source Comments The information contained in this document represents components of the legal health record. It is not the complete legal health record.[facility]
--- OUTSIDE RECORDS SUMMARY | 2024-12-19 18:00 | XMS_ITS | Encounter Summary ---
Author Organization [facility] Address [address] [facility] [address] [place] [address] Phone Care Team Providers Care Vision Rehabilitation Therapist Name Role Phone Etelvina Sears MD Primary Care Provider [phone] Encounter Details Date Type Department Care Team (Late st Contact Info) Description 02/25/2023 Procedure Pass [facility] 3DCTMR MG [address] [place] [address] Social History Tobacco Use Types Packs/Day Years [...] on filedocumented in this encounter Care Teams Vision Rehabilitation Therapist Relationship Specialty Start Date End Date Etelvina Sears MD [address] [place] [phone] PCP - General Internal Medicine 05/25/22 documented as of this encounter Additional Source Comments The information contained in this document represents components of the legal health record. It is not the complete legal health record.[facility]
== END 2024-12-19 15:48 | disposition home or self-care (01) ==
LOC: HO.HMCH 14:55
PROVIDERS: PCP Internal Medicine; Visit Provider Internal Medicine
DX: R73.01 Impaired fasting glucose (principal); M87.051 Idiopathic aseptic necrosis of right femur; M06.09 Rheumatoid arthritis without rheumatoid factor, multiple sites; M87.052 Idiopathic aseptic necrosis of left femur; E66.9 Obesity, unspecified; Z68.31 Body mass index [BMI] 31.0-31.9, adult; E03.9 Hypothyroidism, unspecified; E78.00 Pure hypercholesterolemia, unspecified; F41.1 Generalized anxiety disorder; G47.63 Sleep related bruxism; K21.9 Gastro-esophageal reflux disease without esophagitis; J45.41 Moderate persistent asthma with (acute) exacerbation; J32.9 Chronic sinusitis, unspecified

== ENCOUNTER 2024-12-29 12:54 | Outpatient (AMB) | payer BC, SELFPAY ==
[2024-12-29 13:02] VITALS: BP 100/64; PULSE 69; TEMP 36.7; O2SAT 97; BMI 30.9
--- NOTE | 2024-12-29 13:02 | MHC.PC.OV ---
Vital Signs 12/29/24 13:02 Height 5 ft 5.5 in Weight 188 lb 6 oz BMI 30.9 BP 100/64 Blood Pressure Location Lt brachial Position Sitting Pulse 69 Pulse Source Pulse Oximeter Temp 98.1 F Temp Source Temporal Artery Scan Pulse Oximetry (%) 97 Oxygen Delivery Method Room Air Intake Visit Reasons: PHYSICAL Allergies etanercept (From ENBREL) Allergy (Intermediate, Verified 12/29/24 13:02) RASH tofacitinib (From Xeljanz) Adverse Reaction (Intermediate, Verified 12/29/24 13:02) high LFT Medication List - Last Reconciled 12/29/24 by Etelvina Mares Po, albuterol sulfate 2.5 mg (3 mL) inhalation Q4H PRN 30 days ascorbic acid (vitamin C) ER (Vitamin C ER) 1,000 mg PO calcium citrate 650 mg PO DAILY cholecalciferol (vitamin D3) 50 mcg PO DAILY citalopram 20 mg PO DAILY 90 days cranberry extract 1 PO estradiol 0.01%(0.1mg/gram) pea-sized to urethra 2 times a week; 90 days inhalational spacing device (Aerovent Plus spacer) As directed levothyroxine 50 mcg PO DAILY nebulizers (AeroEclipse II Nebulizer) As directed pantoprazole 40 mg PO DAILY Rinvoq ER (upadacitinib) 15 mg PO DAILY 90 days NS rosuvastatin 5 mg PO DAILY Tobacco use date assessed: 12/19/24 Dental Screening Dental Screen Date: 12/19/24 Did you have a dental visit in the last 12 months?: Yes Did you have a dental problem in the last 6 months where you did not have access to dental care?: No Was dental information given to patient?: Patient has dentist [facility] Medical History UTI (urinary tract infection) Osteopenia Pneumonia Elevated transaminase level Long-term use of immunosuppressant medication COVID-19 vaccine administered Hidradenitis suppurativa of left axilla Urge incontinence Hypercholesterolemia MRSA infection GERD (gastroesophageal reflux disease) Rheumatoid arthritis Hypothyroid Surgical History TMJ (sprain of temporomandibular joint) History of esophagogastroduodenoscopy (EGD) Hx of colonoscopy History of eye surgery Ulnar neuropathy at elbow of left upper extremity Plantar fasciitis, bilateral H/O tubal ligation Hx of tonsillectomy Inguinal hernia Family History Mother Myocardial infarct Father Lung cancer Paternal Uncle Bladder cancer Paternal Aunt Stomach cancer Maternal Uncle Myocardial infarct Social History (Updated 12/29/24 @ 13:23 by Etelvina Sears MD) Housing: House Are you a primary intensive care unit nurse to a significant other at home: No Do you presently have visiting nurse or other home services: No Alcohol intake: current Alcohol intake frequency: a few times a month Alcohol type: wine and hard liquor Comment: 3-4 x a month glass of wine, 2-3 x a month 1 glass Patient Tobacco Use Status: Never used Tobacco e-Cigarette/Vaping Use: Never Used Second Hand Smoke Exposure: No Advance Directives Date on File: 09/17/20 service: No Current occupational status: employed 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 1. Little interest or pleasure in doing things: not at all 2. Feeling down, depressed, or hopeless: not at all 3. Trouble falling or staying asleep, or sleeping too much: not at all 4. Feeling tired or having little energy: not at all 5. Poor appetite or overeating: not at all 6. Feeling bad about yourself - or that you are a failure or have let yourself or your family down: not at all 7. Trouble concentrating on things, such as reading the newspaper or watching television: not at all 8. Moving or speaking so slowly that other people could have noticed. Or the opposite - being so fidgety or restless that you have been moving around a lot more than usual: not at all 9. Thoughts that you would be better off or of hurting yourself in some way: not at all Total score: 0 Depression Screening Interpretation: Negative Depression Screening Done: Yes Source: Developed by Drs. Cristhian Olivo, Xiao Vines, Augustine Adams and colleagues, with an educational jenna from [employer]. Thrive Questionnaire Date Thrive assessed: 12/23/24 I am a: Patient What is your living situation today?: I have a steady place to live Within the past 12 months, did the food you bought not last and you didn't have the money to get more?: Never true Within the past 12 months, did you worry whether your food would run out before you got money to buy more?: Never true Do you have trouble paying for medicines?: No Do you have trouble getting transportation to medical appointments?: No Do you have trouble paying your heating and electricity bill?: No Do you have trouble taking care of your child, family member or friend?: No Do you have trouble with day-to-day activities such as bathing, preparing meals, shopping, managing finances, etc.?: No Are you currently unemployed and looking for a job?: No Are you interested in more education?: No Please select the resources that you would like help with: None Currently or been in a relationship where the following occur: No concerns reported THRIVE Score: 0 AUDIT C Alcohol Use Questionnaire (AUDIT-C) 1. How often do you have a drink containing alcohol?: 2-4 times a month 2. How many drinks containing alcohol do you have on a typical day when you are drinking?: 1 or 2 3. How often do you have six or more drinks on one occasion?: Never Total Score: 2 GUADALUPE-7 AMB Questionnaire GUADALUPE-7 Date GUADALUPE - 7 assessed: 07/20/24 Feeling nervous, anxious, or on edge: 0 = Not at all Not being able to stop or control worryin = Not at all Worrying too much about different things: 0 = Not at all Trouble relaxin = Not at all Being so restless that it is hard to sit still: 0 = Not at all Becoming easily annoyed or irritable: 0 = Not at all Feeling afraid as if something awful might happen: 0 = Not at all Total GUADALUPE-7 score (0-4 normal; 5-9 mild; 10-14 moderate; 15-21 severe): 0 Source: Developed by Drs. Cristhian Olivo, Xiao Vines, Augustine Adams and colleagues, with an educational jenna from [employer]. Review of Systems Const Denies poor appetite and Denies weakness Eyes Denies no additional complaints ENT Reports Normal hearing present, Denies dizziness, Denies nasal congestion, Denies tinnitus and Denies sore throat Card Denies chest pain, Denies syncope, Denies rapid heart rate and Denies dyspnea Resp Denies cough and Denies dyspnea GI Denies change in stool character, Reports constipation, Denies diarrhea, Denies nausea and Denies vomiting Denies urinary frequency, Denies difficulty voiding and Denies dysuria Neuro Reports Normal hearing present, Denies confusion, Denies dizziness, Denies syncope and Denies weakness Psych Denies confusion Physical exam (Primary Care) Vital Signs: Last Vital Signs Temp 98.1 F 12/29/24 13:02 Pulse 69 12/29/24 13:02 BP 100/64 12/29/24 13:02 Pulse Ox 97 12/29/24 13:02 Oxygen Delivery Method Room Air 12/29/24 13:02 BMI result Body Mass Index 30.9 Tobacco/Smoking Status: Tobacco use Status Tobacco use date assessed 12/19/24 12/29/24 13:05 Patient Tobacco Use Status Never used Tobacco 12/29/24 13:23 e-Cigarette/Vaping Use Never Used 12/29/24 13:23 PHQ-9: PHQ-9 Score PHQ-9: Total score 0 12/29/24 13:39 Depression Screening Interpretation: Negative Thrive Assessment: Date of Thrive Assessment Date Thrive assessed 12/23/24 12/29/24 13:05 Currently or been in a relationship where the following occur: No concerns reported Const General: No confusion Orientation/consciousness: No confusion HENMT Head: Yes normocephalic Ears: external ears normal and TM's normal bilaterally Face and sinus: Yes normal facial exam Mouth: moist mucous membranes Throat: Yes tonsils normal Eyes Conjunctivae: conjunctivae normal Pupils: Equal, round and reactive pupils present and Pupil accommodation reflex normal Direct Ophthalmoscopy: normal light reflex Neck Neck: No lymphadenopathy Thyroid: Thyroid normal Chest Chest palpation & inspection: normal inspection of the chest Resp Effort & Inspection: normal respiratory effort and no audible wheezes Auscultation: clear to auscultation bilaterally, no crackles, no wheezes and lung sounds not diminished Cardio Rate: regular rate Rhythm: regular rhythm Peripheral pulses: radial pulses present and dorsalis pedis present GI Palpation (GI): no masses Auscultation: normal bowel sounds and normoactive bowel sounds Rectal Exam - Female: deferred Skin General skin exam: no rashes or lesions noted Rashes: no rashes Neuro General: No confusion Cranial nerves: Yes Equal, round and reactive pupils present and Yes Normal hearing present Cognition (Neuro): normal cognition Gait exam (Neuro): Normal gait present Motor exam (neuro): 5/5 motor strength present throughout Deep tendon reflexes (DTR's): Right brachioradialis reflex intensity grade: 2+, Left brachioradialis reflex intensity grade: 2+, Right patellar reflex intensity grade: 2+ and Left patellar reflex intensity grade: 2+ Extrem General: No edema Immunizations Recombivax HB (PF) 10 mcg/mL intramuscular suspension Performing Provider: Etelvina Sears MD Performing [facility] Administered by: Antonia Shafer CMA on 12/29/24 13:37 Dose Route Admin Location Dispensed Lot Number Expiration Date [employer] 1 mL IM Left Deltoid 1 mL [id number] 10/20/26 16810-841-81 [employer] Total Dispensed Waste 1 mL 0 % VIS Given Date VIS Provided VIS Publication Date 12/29/24 Single Vaccine 22 Eligibility Eligibility Date Funding Source Not [facility] Eligible 12/29/24 Private Coding Level of Care Code Est Pt Prev Care 40-64y(16333) Diagnoses Annual physical exam Z00.00 Hypercholesterolemia E78.00 Impaired fasting blood sugar R73.01 Acquired hypothyroidism E03.9 Hypothyroidism type: acquired Osteopenia of spine M85.88 Osteopenia location: spine Obesity (BMI 30.0-34.9) E66.9 Bruxism, sleep-related G47.63 Gastroesophageal reflux disease without esophagitis K21.9 Esophagitis presence: without esophagitis Rheumatoid arthritis of multiple sites with negative rheumatoid factor M06.09 Rheumatoid arthritis location: multiple sites Rheumatoid factor presence: without rheumatoid factor Avascular necrosis of femur, unspecified laterality M87.059 Laterality: unspecified laterality Moderate persistent asthma without complication J45.40 Asthma complication type: uncomplicated Asthma persistence: persistent Asthma severity: moderate Pulmonary nodule R91.1 Assessment & Plan Assessment & Plan (1) Annual physical exam: Code(s): Z00.00 - Encounter for general adult medical examination without abnormal findings Category: Medical Plan: Patient is advised to eat healthy, keep well hydrated, keep active and have adequate sleep. (2) Hypercholesterolemia: Code(s): E78.00 - Pure hypercholesterolemia, unspecified Category: Medical Plan: Avoid fried foods, chicken skin, eggs, butter margarine, pastries and meat. Be it pork or beef they have a lot of cholesterol on rosuvastatin 5 mg once a day (3) Impaired fasting blood sugar: Code(s): R73.01 - Impaired fasting glucose Category: Medical Plan: Decrease the amount of carbohydrate intake, pasta, bread, rice and potatoes are all sugar and that is aside from all the sweet stuff, remember that fruits are good but they are Sweet also. (4) Hypothyroid: Code(s): E03.9 - Hypothyroidism, unspecified Category: Medical Qualifiers: Hypothyroidism type: acquired Qualified Code(s): E03.9 - Hypothyroidism, unspecified Plan: Continue with thyroid medication (5) Osteopenia: Comment: DEXA 05/03/20. Spine -1.3, Left femur neck -0.5, left femur total -0.2 DEXA 04/14/24. AP Spine -1.9, Left femur neck -0.8, left femur total -0.3 Code(s): M85.80 - Other specified disorders of bone density and structure, unspecified site Category: Medical Qualifiers: Osteopenia location: spine Qualified Code(s): M85.88 - Other specified disorders of bone density and structure, other site Plan: Discussed about calcium and vitamin-D. Bone density up-to-date March 2024 (6) Obesity (BMI 30.0-34.9): Code(s): E66.9 - Obesity, unspecified Category: Medical Plan: Diet and exercise (7) Bruxism, sleep-related: Code(s): G47.63 - Sleep related bruxism Category: Medical Plan: Patient was sent by Neurology to dental Medicine (8) GERD (gastroesophageal reflux disease): Comment: EGD with dilation Small sliding hiatal hernia Reflux precautions Continue pantoprazole 40 mg b.i.d. within try to wean back to pantoprazole 40 mg daily Call with progress, if need to change PPI may do so Code(s): K21.9 - Gastro-esophageal reflux disease without esophagitis Category: Medical Qualifiers: Esophagitis presence: without esophagitis Qualified Code(s): K21.9 - Gastro-esophageal reflux disease without esophagitis Plan: Avoid the foods that causes that usually spicy foods, tomato products, juices, coffee, soda and foods that your sensitive to. After eating do not lie down, allow 3-4 hours before in lie down. And keep the head of bed above 30 degrees to avoid the acid from going up. (9) Rheumatoid arthritis: Comment: Onset ~ 2003, RF positive. Treated with methotrexate and Remicade (failing response), changed to Humira ~2005 and combination helpful. 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 Off/on meds late [id number]. Enbrel stopped because of recurrent infections. Leflunomide caused skin rash, summer 2013. Orencia started 2013; methotrexate added 12/29 but stopped due to LFT elevations Xeljanz in place of Orencia Feb 2015 - helpful but further LFT elevations 02/03. Rinvoq in place of Xeljanz 01/2020 - doses at 15 mg 5 days a week Code(s): M06.9 - Rheumatoid arthritis, unspecified Category: Medical Qualifiers: Rheumatoid arthritis location: multiple sites Rheumatoid factor presence: without rheumatoid factor Qualified Code(s): M06.09 - Rheumatoid arthritis without rheumatoid factor, multiple sites Plan: Patient will be seeing Rheumatology follow-up (10) AVN of femur: Code(s): M87.059 - Idiopathic aseptic necrosis of unspecified femur Category: Medical Qualifiers: Laterality: unspecified laterality Qualified Code(s): M87.059 - Idiopathic aseptic necrosis of unspecified femur Plan: Patient has seen Orthopedics and conservative management (11) Asthma: Code(s): J45.909 - Unspecified asthma, uncomplicated Category: Medical Qualifiers: Asthma complication type: uncomplicated Asthma persistence: persistent Asthma severity: moderate Qualified Code(s): J45.40 - Moderate persistent asthma, uncomplicated Plan: Continue with albuterol inhaler as needed (12) Pulmonary nodule: Comment: CT December 2021, January 2024-9 mm, September 2024 Code(s): R91.1 - Solitary pulmonary nodule Category: Medical Plan: Benign but advised to get it retested in September 2025 Plan History of Present Illness The patient is a 59-year-old obese female presenting for an annual physical exam. She has a noted 4-pound weight loss. Her chronic conditions include GERD, rheumatoid arthritis, hypothyroidism, hypercholesterolemia, impaired glucose tolerance, generalized anxiety disorder, and asthma. For rheumatoid arthritis, she follows up with rheumatology, with her next appointment on January 05, and she takes Rinvoq. She had prior issues with Enbrel and Xeljanz. For asthma, she has an albuterol inhaler which she uses as needed, having last used it during a recent illness. Regarding her orthopedic history, the patient has a history of avascular necrosis of the distal femur and osteoarthritis, for which she follows up with orthopedics and is managed conservatively. She has arthritis in her knees, which was the primary reason for the orthopedic referral, but denies any hip pain. A CT scan of the chest in September 2024 showed a stable 8 mm lung nodule in the left lower lobe, which was not metabolically active on a PET scan. A follow-up CT scan in September of next year is advised. She also has a small hiatal hernia and mild thyroid enlargement. Her last colonoscopy was in June 2022, which showed a tubular adenoma. A recent sleep study showed no evidence of sleep apnea or limb movement disorder but did note snoring and bruxism. She has been referred to sleep dentistry for an oral appliance. Her family history is significant for a heart attack and congestive heart failure in her mother, congestive heart failure and bladder cancer in an uncle, lung cancer in her father, and stomach cancer in an aunt. Her current medications include citalopram 20 mg, vaginal hormone cream, levothyroxine 50 mcg, pantoprazole 40 mg, Rinvoq, and rosuvastatin 5 mg. She also takes vitamin C, calcium, vitamin D, and cranberry extract. Health Maintenance - Mammogram: Due, and scheduled for February 09. - Colonoscopy: Last procedure was in June 2022, revealing a tubular adenoma. - Bone Density Scan: Last performed in March 2024 and is considered up to date. - Eye Exam: Last exam was a few months ago with dilation, and results were normal. - Immunizations: The patient has received her flu shot and is up to date on pneumonia and tetanus vaccines. - She received a Hepatitis B booster during the visit. - The shingles vaccine was discussed, and she was advised she could get it at a pharmacy. - Prediabetes Screening: Hemoglobin A1c was 6.1% in October. - Cholesterol Screening: Recent labs from November 23 showed an LDL of 114 mg/dL, triglycerides of 133 mg/dL, and total cholesterol of 195 mg/dL. - Lifestyle: Discussion included diet, exercise, and continued weight loss. Social History - Alcohol Use: The patient reports drinking alcohol rarely, about two or three times a month, consuming one glass of wine or a mixed drink per occasion. - Tobacco Use: Denies ever smoking cigarettes. - Recreational Drug Use: Denies use. - Physical Activity: Plays pickleball and uses the stairs at work. Review of Systems - Constitutional: Denies fever. - Reports a 4-pound weight loss. - HEENT: Reports some difficulty hearing a person if they are talking to her. - Denies problems with vision, noting her last eye exam was normal. - Denies problems swallowing. - Cardiovascular: Denies chest pain, heaviness, or discomfort. - Respiratory: Reports difficulty breathing when lying on her right side in bed. - Denies waking up short of breath or coughing while eating. - Gastrointestinal: Reports GERD is well-controlled with medication. - Reports normal bowel movements. - Denies nausea, vomiting, constipation, or blood in the stool. - Genitourinary: Denies problems with urination. - Reports waking up to urinate about once per night. - Neurological: Denies passing out or feeling dizzy. - Musculoskeletal: Reports her knees were bothering her, leading to an orthopedics consultation. - Denies any hip pain. - Skin: Reports itchy rashes on her back. Physical Exam General: Cooperative, healthy appearing, comfortable, no acute distress and well developed Orientation: Patient oriented x3 Limitations: No limitations Head: Normal to inspection Ears: Hearing grossly normal bilaterally Nose: Normal external nose present Face and sinus: Normal facial exam Eyes: Appearance normal, both eyes and all related structures Neck: Normal visual inspection and Yes full ROM Respiratory: Normal respiratory effort and able to speak in complete sentences. Clear to auscultation bilaterally Cardiovascular: Regular rate and rhythm. Normal S1 and S2 GI: Normal to inspection. Soft to palpation and nontender Skin: No rashes or lesions noted, except for seborrheic keratosis Neuro: Patient oriented x3 Extremities: Normal to inspection Results - Labs (October 18): Complete blood count was normal with no anemia. - Labs (November 23): Electrolytes and renal function were normal. - Labs (October): Hemoglobin A1c was 6.1%. - Labs (November 23): Lipid panel showed total cholesterol 195 mg/dL, LDL 114 mg/dL, and triglycerides 133 mg/dL. - Labs (November 23): Liver function tests were elevated. - Labs (November 23): Thyroid function was normal. - Imaging (September 2024): CT chest showed a stable 8 mm lung nodule in the left lower lobe. - Imaging: PET scan showed the lung nodule was not metabolically active. - Imaging: Femoral MRI showed suspected avascular necrosis of the distal femur. - Procedures (June 2022): Colonoscopy showed a tubular adenoma. - Procedures: Sleep study showed no evidence of sleep apnea or limb movement disorder, but did show snoring. - Procedures (March 2024): Bone density scan is up to date. Plan Patient was informed and verbally consented to the use of an ambient scribe for clinic note documentation during this visit. 1. Annual Physical Examination The patient is in for a wellness visit. A mammogram is scheduled for February 09. Bone density scan is up to date. Discussion was had regarding the shingles vaccine, which can be obtained at the pharmacy. A hepatitis B booster was administered during the visit. Diet and exercise for weight management were discussed. 2. Hypercholesterolemia The patient's cholesterol has improved, with a recent LDL of 114 mg/dL and triglycerides of 133 mg/dL. She will continue rosuvastatin 5 mg once a day. A 90-day refill was sent to her pharmacy. 3. Prediabetes Her last hemoglobin A1c was 6.1%, which is in the prediabetic range and is her highest recorded value. The patient was counseled on the importance of continued weight loss and dietary management. 4. Hypothyroidism Continue current thyroid medication, levothyroxine 50 mcg. Recent labs show normal thyroid function. 5. Rheumatoid Arthritis The patient will continue to be followed by rheumatology, with an upcoming appointment on January 05. She continues to take Rinvoq. 6. Avascular Necrosis Of Distal Femur And Osteoarthritis The patient follows with orthopedics for avascular necrosis of the distal femur and osteoarthritis. The plan is for continued conservative management. 7. Stable Left Lower Lobe Lung Nodule The patient has a stable 8mm lung nodule in the left lower lobe which appears benign and was not metabolically active on PET scan. She is advised to get a follow-up CT scan in September of next year. 8. Asthma The patient will continue her albuterol inhaler for as-needed use. 9. Gastroesophageal Reflux Disease The patient's reflux symptoms are well-controlled on her current dose of pantoprazole 40 mg, and she will continue this medication. 10. Bruxism And Snoring A sleep study was negative for sleep apnea. Based on a referral from neurology for snoring and bruxism, the patient has an appointment with dental medicine for evaluation for an oral appliance. Discussion Notes I reviewed the patient's chart and recent test results with her. We discussed that the CT scan of her lungs showed a nodule that appears benign, and I recommended she get a repeat scan next year around September. I clarified that her referral to orthopedics was for avascular necrosis of the distal femur, not her hip, and that the plan is for conservative management as she is not having pain. We reviewed her sleep study results, which were negative for sleep apnea, and noted she has an upcoming appointment with a dental sleep clinic for an oral appliance for her bruxism. I congratulated her on her recent weight loss and encouraged her to continue her efforts. We discussed her lab work, noting the significant improvement in her cholesterol and triglyceride levels, but also the elevation of her hemoglobin A1c to 6.1%, emphasizing the need to be careful with her diet. We discussed immunizations, including the two-shot series for shingles, which I recommended she could get at a pharmacy, and I informed her about potential side effects like arm pain and feeling unwell for a day. We also discussed the hepatitis B vaccine, and she agreed to receive a booster shot today. I provided a 90-day refill for her rosuvastatin. Patient Instructions - Continue taking all your current medications as prescribed, including rosuvastatin, levothyroxine, pantoprazole, and Rinvoq. - A 90-day refill for your cholesterol medication, rosuvastatin, has been sent to your pharmacy. - Continue your efforts with diet and exercise to manage your weight and blood sugar. - Keep your scheduled appointment for a mammogram on February 09. - Schedule a follow-up chest CT scan for your lung nodule next year, around September. - You may schedule an appointment at your local pharmacy to receive the shingles vaccine, which is a two-shot series. - Keep your follow-up appointments with your specialists, including rheumatology, orthopedics, and the dental sleep clinic. - Use your albuterol inhaler as needed for asthma symptoms. - Make sure to drink enough water. Orders: Orders Hepatitis B Adult Immunization Today Z23 - Encounter for immunization Medications: Refilled rosuvastatin 5 mg PO DAILY 90 tabs 3RF E78.00 - Pure hypercholesterolemia, unspecified
== END 2024-12-29 13:46 | disposition home or self-care (01) ==
LOC: HO.HMCH 12:55
PROVIDERS: PCP Internal Medicine; Visit Provider Internal Medicine
DX: Z00.00 Encounter for general adult medical examination without abnormal findings (principal); E78.00 Pure hypercholesterolemia, unspecified; M06.09 Rheumatoid arthritis without rheumatoid factor, multiple sites; M87.059 Idiopathic aseptic necrosis of unspecified femur; R73.01 Impaired fasting glucose; E03.9 Hypothyroidism, unspecified; M85.88 Other specified disorders of bone density and structure, other site; E66.9 Obesity, unspecified; G47.63 Sleep related bruxism; K21.9 Gastro-esophageal reflux disease without esophagitis; J45.40 Moderate persistent asthma, uncomplicated; R91.1 Solitary pulmonary nodule; Z23 Encounter for immunization

== ENCOUNTER → 2024-12-29 12:54 | Outpatient (BNVA) | payer BC, SELFPAY | PROVIDERS: PCP Internal Medicine; Visit Provider Internal Medicine | DX: Z00.00 Encounter for general adult medical examination without abnormal findings (principal); Z23 Encounter for immunization; R73.01 Impaired fasting glucose; M85.88 Other specified disorders of bone density and structure, other site; G47.63 Sleep related bruxism; E78.00 Pure hypercholesterolemia, unspecified; E03.9 Hypothyroidism, unspecified; E66.9 Obesity, unspecified; K21.9 Gastro-esophageal reflux disease without esophagitis; M06.09 Rheumatoid arthritis without rheumatoid factor, multiple sites; M87.059 Idiopathic aseptic necrosis of unspecified femur; J45.40 Moderate persistent asthma, uncomplicated; R91.1 Solitary pulmonary nodule; Z68.30 Body mass index [BMI] 30.0-30.9, adult | CPT/HCPCS: 90471; 90746; 96127 ==

== ENCOUNTER 2025-01-05 15:04 | Outpatient (AMB) | payer BC, SELFPAY ==
--- OUTSIDE RECORDS SUMMARY | 2022-06-05 09:13 | XMS_ITS | Encounter Summary ---
Author Organization [facility] Address [address] [place] [address] Phone Care Team Providers Care Powder Loader Name Role Phone Etelvina Sears MD Primary Care Provider [phone] Encounter Details Date Type Department Care Team (Late st Contact Info) Description 06/05/2022 10:13 AM EDT Hospital Encounter [facility] [address] [place] [address] Sierra Khan CNP [address] [place] [phone] [email or web address] Social History Tobacco Use Types Packs/Day Years [...] abnormality. IMPRESSION: Normal chest. us Sierra Khan CREDENTIALING ANALYST IMG XR CHEST Final Resul t documented in this encounter Visit Diagnoses Not on filedocumented in this encounter Care Teams Powder Loader Relationship Specialty Start Date End Date Etelvina Sears MD [address] [place] [address] [place] [phone] PCP - General Internal Medicine 05/25/22 documented as of this encounter Additional Source Comments The information contained in this document represents components of the legal health record. It is not the complete legal health record.[facility]
--- OUTSIDE RECORDS SUMMARY | 2022-06-14 08:43 | XMS_ITS | Encounter Summary ---
Author Organization [facility] Address [address] [facility] [address] [place] [address] Phone Care Team Providers Care Dye Range Feeder Name Role Phone Etelvina Sears MD Primary Care Provider [phone] Encounter Details Date Type Department Care Team (Late st Contact Info) Description 06/14/2022 9:43 AM EDT Hospital Encounter [facility] [address] [place] [address] Jesse Delatorre PA-C [address] [place] [phone] [email or web address] Social History Tobacco [...] on filedocumented in this encounter Care Teams Dye Range Feeder Relationship Specialty Start Date End Date Etelvina Sears MD [address] [place] [phone] PCP - General Internal Medicine 05/25/22 documented as of this encounter Additional Source Comments The information contained in this document represents components of the legal health record. It is not the complete legal health record.[facility]
--- OUTSIDE RECORDS SUMMARY | 2023-07-02 13:30 | XMS_ITS | Encounter Summary ---
Author Organization [facility] Address [address] [facility] [address] [place] [address] Phone Care Team Providers Care Consultative Sales Associate Name Role Phone Etelvina Sears MD Primary Care Provider [phone] Encounter Details Date Type Department Care Team (Late st Contact Info) Description 07/02/2023 2:30 PM EDT Hospital Encounter [facility] [address] [place] [phone] Jesse Delatorre PA-C [address] [place] [phone] [email or web address] Social History Tobacco Use Types [...] on filedocumented in this encounter Care Teams Consultative Sales Associate Relationship Specialty Start Date End Date Etelvina Sears MD [address] [place] [address] [place] [address] [phone] PCP - General Internal Medicine 05/25/22 documented as of this encounter Additional Source Comments The information contained in this document represents components of the legal health record. It is not the complete legal health record.[facility]
--- OUTSIDE RECORDS SUMMARY | 2025-01-05 15:12 | XMS_ITS | Encounter Summary ---
Author Organization [facility] Address [address] [place] [address] Phone Care Team Providers Care Nuclear Medicine Supervisor Name Role Phone Etelvina Sears MD Primary Care Provider [phone] Encounter Details Date Type Department Care Team (Late st Contact Info) Description 12/10/2022 Procedure Pass MRI, [facility] [address] [place] [address] Social History Tobacco Use Types [...] filedocumented in this encounter Care Teams Nuclear Medicine Supervisor Relationship Specialty Start Date End Date Etelvina Sears MD [address] [place] [phone] PCP - General Internal Medicine 05/25/22 documented as of this encounter Additional Source Comments The information contained in this document represents components of the legal health record. It is not the complete legal health record.[facility]
--- OUTSIDE RECORDS SUMMARY | 2025-01-05 15:12 | XMS_ITS | Patient Health Record ---
[facility] Address [address] [place] [address] Care Team Providers Care Contractor General Building Name Role Phone Etelvina Sears Primary Care Provider Justino Duque Unavailable [phone] Allergies Allergen (clinical drug ingredient) Drug/Non Drug [...] Status Risk Notes Problem Acquired hallux valgus (23508065) Hallux valgus (acquired), right foot (M20.11) Active confirmed Problem Acquired hammer toe of right foot (87374893197502 05) Other hammer toe(s) (acquired), right foot (M20.41) Active confirmed Problem Acquired hammer toe of left foot (28057223003283 03) Other hammer toe(s) (acquired), left foot (M20.42) Active confirmed Problem Pain in limb (15981944) Pain in unspecified foot (M79.673) Active confirmed Problem Rheumatoid arthritis (16576279) Rheumatoid arthritis involving multiple sites with positive rheumatoid factor (M05.79) Active confirmed Plan Of Treatment Pending Test Test Name Order Date X ray : Foot, left 3V 03/15/2015 21708, P4365-WNFUC/INJECT, JOINT/BURSA 0 04/02/2020 Insurance Providers Payer Name Payer Address Payer Phone Subscriber Number Group Number Insured Name Patient Relationship to Insured Coverage Start Date Coverage End Date Blue Benefits [address] [address] [place] [address] [id number] Marian Doran Self - patient is the [...]
--- OUTSIDE RECORDS SUMMARY | 2025-01-05 15:12 | XMS_ITS | Clinical Summary ---
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 Off/on meds late 6973-0619. Enbrel stopped because of recurrent infections. Leflunomide [...] this topic Medical Devices Implanted Type Area House Supervisor Device Identifier Shelf Expiration Date Model / Serial / Lot Tmj Unilateral Implant Pt Andreea Implanted:Qty: 1 on 08/06/2023 by Nick Reyes MD, DDS at [facility] Right: Face 03/15/2025 [id number] / / [id number] Insurance [employer] [facility] [employer]uff [employer] [facility] [employer]uff [employer] Advance Directives For more information, please contact: [phone] (9AM - 5PM [facility], Wednesday-Wednesday) * Full Code (Latest [...] Code Status Confirmed With: Patient Care Teams Senior Executive Assistant Relationship Specialty Start Date End Date Etelvina Sears MD [address] [place] [phone] PCP - General Internal Medicine 05/25/22 Additional Source Comments The information contained in this document represents components of the legal health record. It is not the complete legal health record.[facility]
--- OUTSIDE RECORDS SUMMARY | 2025-01-05 15:12 | XMS_ITS | Encounter Summary ---
Author Organization [facility] Address [address] [place] [address] Phone Care Team Providers Care Timber Feller Name Role Phone Etelvina Sears MD Primary Care Provider [phone] Encounter Details Date Type Department Care Team (Late st Contact Info) Description 06/17/2022 Procedure Pass [facility] [address] [place] [address] Social History Tobacco Use Types Packs/Day Years [...] filedocumented in this encounter Care Teams Timber Feller Relationship Specialty Start Date End Date Etelvina Sears MD [address] [place] [address] PCP - General Internal Medicine 05/25/22 documented as of this encounter Additional Source Comments The information contained in this document represents components of the legal health record. It is not the complete legal health record.[facility]
--- OUTSIDE RECORDS SUMMARY | 2025-01-05 15:12 | XMS_ITS | Encounter Summary ---
Author Organization [facility] Address [address] [facility] [address] [place] [address] Phone Care Team Providers Care Membership Counselor Name Role Phone Etelvina Sears MD Primary Care Provider Encounter Details Date Type Department Care Team (Late st Contact Info) Description 08/21/2022 Procedure Pass [facility] [place] [id number] Social History Tobacco Use Types Packs/Day Years [...] on filedocumented in this encounter Care Teams Membership Counselor Relationship Specialty Start Date End Date Etelvina Sears MD [address] [place] [phone] PCP - General Internal Medicine 05/25/22 documented as of this encounter Additional Source Comments The information contained in this document represents components of the legal health record. It is not the complete legal health record.[facility]
--- OUTSIDE RECORDS SUMMARY | 2025-01-05 15:13 | XMS_ITS | Encounter Summary ---
Author Organization [facility] Address [address] [facility] [address] [place] [address] Phone Care Team Providers Care Counter Top Maker Name Role Phone Etelvina Sears MD Primary Care Provider [phone] Encounter Details Date Type Department Care Team ([facility] st Contact Info) Description 06/17/2022 Procedure Pass [facility] [address]th [place] [address] Social History Tobacco Use Types Packs/Day Years [...] filedocumented in this encounter Care Teams Counter Top Maker Relationship Specialty Start Date End Date Etelvina Sears MD [address] [place] [address] PCP - General Internal Medicine 05/25/22 documented as of this encounter Additional Source Comments The information contained in this document represents components of the legal health record. It is not the complete legal health record.[facility]
--- OUTSIDE RECORDS SUMMARY | 2025-01-05 15:13 | XMS_ITS | Encounter Summary ---
Author Organization [facility] Address [address] [facility] [address] [place] [address] Phone Care Team Providers Care Road Tester Name Role Phone Etelvina Sears MD Primary Care Provider [phone] Encounter Details Date Type Department Care Team ([facility] Contact Info) Description 08/06/2023 Procedure Pass [facility]PT [address] [place] [phone] Social History Tobacco Use Types Packs/Day [...] on filedocumented in this encounter Care Teams Road Tester Relationship Specialty Start Date End Date Etelvina Sears MD [address] [place] [phone] PCP - General Internal Medicine 05/25/22 documented as of this encounter Additional Source Comments The information contained in this document represents components of the legal health record. It is not the complete legal health record.[facility]
--- OUTSIDE RECORDS SUMMARY | 2025-01-05 15:13 | XMS_ITS | Encounter Summary ---
Author Organization [facility] Address [address] [facility] [address] [place] [address] Phone Care Team Providers Care Gas Pumper Name Role Phone Etelvina Sears MD Primary Care Provider [phone] Encounter Details Date Type Department Care Team (Late st Contact Info) Description 02/25/2023 Procedure Pass [facility], [place] [address] [facility] 2[address], [address] [place] [address] Social History Tobacco Use Types Packs/Day Years [...] filedocumented in this encounter Care Teams Gas Pumper Relationship Specialty Start Date End Date Etelvina Sears MD [address] [facility] [address] [place] [phone] PCP - General Internal Medicine 05/25/22 documented as of this encounter Additional Source Comments The information contained in this document represents components of the legal health record. It is not the complete legal health record.[facility]
--- OUTSIDE RECORDS SUMMARY | 2025-01-05 15:13 | XMS_ITS | Clinical Summary ---
Author Organization [facility] Address [address] [place] [address] Care Team Providers Care Missile Tracking Technician Name Role Phone Unavailable Primary Care Provider Unavailabl e Surgical History Surgery Date Site/Laterality Comments TUBAL LIGATION PROCEDURE: HISTORICAL TUBAL LIGATION HERNIA REPAIR Bilateral PROCEDURE: HISTORICAL HERNIA REPAIR/ING; COMMENT: around age 8 y/o BLADDER SUSPENSION 2010 PROCEDURE: HISTORICAL BLADDER SUSPENSION; COMMENT: Dr. 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 Off/on meds late 7273-6790. Enbrel stopped because of recurrent infections. Leflunomide [...] RESULTING AGENCY - 07/06/2018 4:50 PM EDT [id number] THINPREP PAP, IMAGED: NEGATIVE FOR SQUAMOUS INTRAEPITHELIAL [...]
--- OUTSIDE RECORDS SUMMARY | 2025-01-05 15:13 | XMS_ITS | Encounter Summary ---
Author Organization [facility] Address [address] [facility] [address] [place] [address] Phone Care Team Providers Care Qm Nurse Name Role Phone Etelvina Sears MD Primary Care Provider [phone] Reason for Referral * MRI/CAT Scan - Closed Specialty Diagnoses / Procedures Referred By Contac t Referred To Contact Radiology Diagnoses TMJ disease Procedures CT 3D Reconstruction Face CHG 3D RENDERING W/INTERP&POSTPROC DIFF WORK STATION Gabe Soriano MD Phone: tel: [email or web address] Referral ID Status Reason Start Date Expiration Date Visits Re quested Visits Authorized [id number] Closed 08/09/2023 1 1 Encounter Details Date Type Department Care Team (Late st Contact Info) Description 08/09/[address] [facility] [address] [facility] 6th [place] [address] Gabe Soriano MD [address] [place] [address] [email or web address] TMJ disease (Primary Dx) Social History Tobacco [...] refer to the primary CT accession number [id number] for the full report indicating 3D images were created on an independent workstation and interpreted. Procedure Note Ray Harris MD - 08/13/2023 Please refer to the primary CT accession number [id number] for the fullreport indicating 3D images were created on an independent workstation andinterpreted. Etelvina Sears MD IMG CT Final Result documented in this encounter Visit Diagnoses Diagnosis TMJ disease- Primary Unspecified temporomandibular joint disorders TMJ disease Unspecified temporomandibular joint disorders documented in this encounter Care Teams Qm Nurse Relationship Specialty Start Date End Date Etelvina Sears MD [address] [place] [address] PCP - General Internal Medicine 05/25/22 documented as of this encounter Additional Source Comments The information contained in this document represents components of the legal health record. It is not the complete legal health record.[facility]
--- OUTSIDE RECORDS SUMMARY | 2025-01-05 15:13 | XMS_ITS | Encounter Summary ---
Author Organization [facility] Address [address] [facility] [address] [place] [address] Phone Care Team Providers Care Naval Architect Specialist Name Role Phone Etelvina Sears MD Primary Care Provider [phone] Encounter Details Date Type Department Care Team ([facility] st Contact Info) Description 08/09/2023 Procedure Pass [facility] 3DCTMR MG [address] [place] [address] Social History Tobacco Use Types Packs/Day Years [...] on filedocumented in this encounter Care Teams Naval Architect Specialist Relationship Specialty Start Date End Date Etelvina Sears MD [address] [place] [phone] PCP - General Internal Medicine 05/25/22 documented as of this encounter Additional Source Comments The information contained in this document represents components of the legal health record. It is not the complete legal health record.[facility]
--- OUTSIDE RECORDS SUMMARY | 2025-01-05 15:13 | XMS_ITS | Encounter Summary ---
Author Organization [facility] Address [address] [facility] [address] [place] [address] Phone Care Team Providers Care Cdl Company Driver Name Role Phone Etelvina Sears MD Primary Care Provider [phone] Encounter Details Date Type Department Care Team (Late st Contact Info) Description 08/06/2023 Procedure Pass [facility], [place] [address] [facility], 6th [place] [address] Social History Tobacco Use Types Packs/Day Years [...] on filedocumented in this encounter Care Teams Cdl Company Driver Relationship Specialty Start Date End Date Etelvina Sears MD [address] [facility] [address] [place] [phone] PCP - General Internal Medicine 05/25/22 documented as of this encounter Additional Source Comments The information contained in this document represents components of the legal health record. It is not the complete legal health record.[facility]
--- OUTSIDE RECORDS SUMMARY | 2025-01-05 15:13 | XMS_ITS | Encounter Summary ---
Author Organization [facility] Address [address] [facility] [address] [place] [address] Phone Care Team Providers Care Utility Repairer Name Role Phone Etelvina Sears MD Primary Care Provider Encounter Details Date Type Department Care Team ([facility] st Contact Info) Description 02/25/2023 Procedure Pass [facility] 3DCTMR MG [address] [place] [address] Social History Tobacco Use Types Packs/Day Years [...] on filedocumented in this encounter Care Teams Utility Repairer Relationship Specialty Start Date End Date Etelvina Sears MD [address] [place] [phone] PCP - General Internal Medicine 05/25/22 documented as of this encounter Additional Source Comments The information contained in this document represents components of the legal health record. It is not the complete legal health record.[facility]
--- NOTE | 2025-01-05 15:41 | MHC.OFFVIS ---
Vital Signs 01/05/25 15:46 Height 5 ft 5.5 in Weight 188 lb BMI 30.8 BP 112/70 Blood Pressure Location Lt brachial Position Sitting Pulse 73 Pulse Source Pulse Oximeter Pulse Oximetry (%) 96 Oxygen Delivery Method Room Air Intake Visit Reasons: Follow up Intake Note: Patient presents for RA follow up. Allergies etanercept (From ENBREL) Allergy (Intermediate, Verified 01/05/25 15:46) RASH tofacitinib (From Xeljanz) Adverse Reaction (Intermediate, Verified 01/05/25 15:46) high LFT Medication List - Last Reconciled 01/05/25 by Michelle Owen MD albuterol sulfate 2.5 mg (3 mL) inhalation Q4H PRN 30 days ascorbic acid (vitamin C) ER (Vitamin C ER) 1,000 mg PO calcium citrate 650 mg PO DAILY cholecalciferol (vitamin D3) 50 mcg PO DAILY citalopram 20 mg PO DAILY 90 days cranberry extract 1 PO estradiol 0.01%(0.1mg/gram) pea-sized to urethra 2 times a week; 90 days inhalational spacing device (Aerovent Plus spacer) As directed levothyroxine 50 mcg PO DAILY nebulizers (AeroEclipse II Nebulizer) As directed pantoprazole 40 mg PO DAILY Rinvoq ER (upadacitinib) 15 mg PO DAILY 90 days NS rosuvastatin 5 mg PO DAILY HPI Comments Details: Patient is a 59-year-old female with asthma, hypothyroidism, hyperlipidemia and seropositive nonerosive rheumatoid arthritis. Here today for an urgent visit for a flare of her disease Interval History: Patient last seen 07/18/2024 with me. - On Rinvoq 15mg 5 days a week - Patient is recovering from a flare that started 1 week ago - She started getting a head cold then noticed all the joints in her body were aching - Particularly her right knee: the lateral part of her right knee. No trauma. But has been playing pickle ball. About 3-4 days ago couldn't even walk on the right knee. Used topical penetrex with some relief - Her flare is resolving Today - On Rinvoq 15mg 5 times per week - Doing well overall - Requesting DIP injection - Had follow up with ortho AVN bilateral knees. Nothing to do at this time Rheumatologic History: Onset ~ 2003, RF positive. Treated with methotrexate and Remicade (failing response), changed to Humira ~2005 and combination helpful. 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 Off/on meds late [id number]. Enbrel stopped because of recurrent infections. Leflunomide caused skin rash, summer 2013. Orencia started 2013; methotrexate added 12/29 but stopped due to LFT elevations Xeljanz in place of Orencia Feb 2015 - helpful but further LFT elevations 02/03. Rinvoq in place of Xeljanz 01/2020 Decreased Rinvoq to 5 days a week in the setting of elevated liver enzymes Current Rheumatology Medication(s): Rinvoq 15mg 5 days a week [facility] Medical History UTI (urinary tract infection) Osteopenia Pneumonia Elevated transaminase level Long-term use of immunosuppressant medication COVID-19 vaccine administered Hidradenitis suppurativa of left axilla Urge incontinence Hypercholesterolemia MRSA infection GERD (gastroesophageal reflux disease) Rheumatoid arthritis Hypothyroid Surgical History TMJ (sprain of temporomandibular joint) History of esophagogastroduodenoscopy (EGD) Hx of colonoscopy History of eye surgery Ulnar neuropathy at elbow of left upper extremity Plantar fasciitis, bilateral H/O tubal ligation Hx of tonsillectomy Inguinal hernia Family History Mother Myocardial infarct Father Lung cancer Paternal Uncle Bladder cancer Paternal Aunt Stomach cancer Maternal Uncle Myocardial infarct Social History Housing: House Are you a primary residential care facility manager to a significant other at home: No Do you presently have visiting nurse or other home services: No Alcohol intake: current Alcohol intake frequency: a few times a month Alcohol type: wine and hard liquor Comment: 3-4 x a month glass of wine, 2-3 x a month 1 glass Patient Tobacco Use Status: Never used Tobacco e-Cigarette/Vaping Use: Never Used Second Hand Smoke Exposure: No Advance Directives Date on File: 09/17/20 service: No Current occupational status: employed 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, 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 Cognitive needs: No Hearing needs: No Vision needs: Yes Review of Systems Narrative Review of Systems Constitutional: Denies fever, chills, weight loss ENT: Denies vision changes, eye pain or eye redness, dental caries, dry mouth GI: Denies nausea, vomiting, diarrhea, abdominal pain, change in BM Pulm: Denies SOB, VERAS, hemoptysis, wheezing Cards: Denies chest pain, palpitations Skin: Denies Raynaud's, rash, nail changes, photosensitivity, TELEVISION RECEIVER ANALYZER: Denies headaches, weakness, paresthesias, recurrent falls MSK: as per HPI All other systems reviewed and are unremarkable except noted above Physical Exam Exam Exam: Vital signs reviewed Physical Examination CONSTITUITIONAL Patient alert and cooperative. Well appearing and in no apparent painful distress MSK Hands Right Hand: Able to make a fist. No swelling or tenderness to palpation of the MCPs, PIPs or DIPs. Left Hand: Able to make a fist. No swelling or tenderness to palpation of the MCPs, PIPs or DIPs. Herbedens nodes noted bilaterally Wrists Right Wrist: Full ROM to flexion and extension. No swelling or TTP Left Wrist: Full ROM to flexion and extension. No swelling or TTP Elbows Right Elbow: Full ROM. No swelling or TTP. No TTP of the medial epicondyle. No TTP of the lateral epicondyle Left Elbow: Full ROM. No swelling or TTP. No TTP of the medial epicondyle. No TTP of the lateral epicondyle Shoulders Right shoulder: Full ROM. No swelling noted. No TTP of the AC joint. No TTP of the subacromial bursa. No TTP of the posterior shoulder Left shoulder: Full ROM. No swelling noted. No TTP of the AC joint. No TTP of the subacromial bursa. No TTP of the posterior shoulder Knees Right knee: Full ROM. No swelling noted. No TTP of the knee joint line. No TTP of pes anserine bursa Left knee: Full ROM. No swelling noted. No TTP of the knee joint line. No TTP of pes anserine bursa. Crepitations felt bilaterally Ankles Right ankle: Good ankle dorsiflexion and plantar flexion. No swelling. No TTP of the ankle joint Left ankle: Good ankle dorsiflexion and plantar flexion. No swelling. No TTP of the ankle joint Feet Right foot: Negative squeeze test Left foot: Negative squeeze test Tender points? No tenderness to palpation of the bilateral trapezius, supraspinatus, anterior costochondral junctions, bilateral suboccipital muscle insertions SKIN No rashes Vital Signs: Last Vital Signs Pulse 73 01/05/25 15:46 BP 112/70 01/05/25 15:46 Pulse Ox 96 01/05/25 15:46 Oxygen Delivery Method Room Air 01/05/25 15:46 BMI result Body Mass Index 30.8 Office Procedures AMB Joint Injection/Aspiration Joint Injection/Aspiration Details: Procedure was explained to the patient and informed consent was obtained. ? Risks associated with the procedure were discussed with the patient including but not limited to bleeding, infection, drug reactions and reactions to the topical anesthetic. Patient made aware of signs to look out for infectious complications. The area of interest was identified and confirmed with patient. ?This was subsequently cleaned with chlorhexidine x 2. ? The area was then anesthetized using ethyl chloride spray. 40 mg Kenalog was injected without issue. ?Minimal to no bleeding. ?Patient tolerated procedure. Primary Site: Other (left 5th DIP) Prep: site was prepped using aseptic technique and ethochloride spray was applied Injected: 40 mg of and Kenalog Coding 96136 - Small Joint Procedure code (CPT) selection complete Office Meds Kenalog 40 mg/mL suspension for injection Performing Provider: Michelle Owen MD Performing Location: [facility] Administered by: Michelle Owen MD on 01/09/25 08:48 Dose Route Admin Location Dispensed Lot Number Expiration Date [facility] [employer] 40 mg intra-articular left 5th dip 1 mL [id number] 07/16/26 [address]-6 [employer] Total Dispensed Waste 1 mL 0 % Results Reviewed Results Reviewed: Laboratory Tests 10/18/24 11/23/24 12:47 06:17 WBC 5.5 RBC 4.14 L Hgb 13.1 Hct 38.9 Plt Count 335 ESR 12 Sodium 142 Potassium 4.6 Chloride 109 H Carbon Dioxide 25 BUN 15 Creatinine 0.78 AST 44 H ALT 60 H C-Reactive Protein < 0.10 25-OH Vitamin D Total 28 L Laboratory Tests 10/18/24 12:47 Hepatitis A IgM Ab Nonreactive Hep Bs Antigen Negative Hep Bs Antibody NONREACTIVE Hep B Core Total Ab Nonreactive Hepatitis C Ab (EIA) Nonreactive TB Test (T-Spot) Com Negative XR Bilateral Knees 07/2024 FINDINGS: RIGHT KNEE: There is a 4.2 x 1.6 x 2.2 cm (CC by AP by transverse) groundglass density in the distal diaphysis of the right femur in the central medullary space with mostly geographic margins and possible faint rings and arcs. There is mild medial joint space narrowing. There is a joint effusion. There are no osteophytes. LEFT KNEE: There is a lesion in the distal diaphysis and metadiaphysis of the femur measuring 9.4 x 1.7 x 3.1 cm CC by AP by transverse. There is a second similar smaller lesion in the tibial metadiaphysis. Margins are geographic. The lesion is heterogeneous with areas of sclerosis and scalloped margins with vague internal rings and arcs. No definite endosteal scalloping is identified. There is mild medial joint space narrowing. Joint spaces are otherwise preserved. There are no osteophytes or erosions. IMPRESSION: RIGHT KNEE: There is a nonaggressive appearing lesion in the central medullary space of the distal right femoral metadiaphysis. This could represent a fibrous lesion or possibly a low-grade chondroid lesion. Mild nonspecific medial joint space narrowing. LEFT KNEE: There is a nonaggressive appearing lesion in the central medullary space of the distal femoral diaphysis and metadiaphysis with chondroid matrix likely representing a low-grade chondroid lesion, e.g. enchondroma. If the lesion is suspected to be symptomatic, consider MRI of the distal femur without with IV contrast. Smaller lesion in the metadiaphysis of the proximal tibia is also most consistent with a low-grade chondroid lesion. Mild nonspecific medial joint space narrowing. MR Left Knee 07/2024 FINDINGS: There is a central medullary lesion in the distal femoral metadiaphysis. It measures 8.4 x 1.8 x 2.7 cm (CC by AP by transverse). On T1 imaging, there are somewhat concentric serpentine bands of low signal with interspersed high signal isointense to yellow marrow. On fluid sensitive sequences, there are serpentine globular bands of low, high, and intermediate signal. After contrast, there are hyperenhancing serpentine bands. There is no bone marrow edema, cortical destruction, or soft tissue extension. Muscle signal is physiologic without edema or fatty streaking, or atrophy. There are no abnormalities along major neurovascular bundles. There is no knee joint effusion. IMPRESSION: Suspected AVN involving the the distal femoral metadiaphysis. MR Right Knee 07/2024 Findings: There is a central lesion in the distal metadiaphysis of the right femur. It measures 4.1 x 1.4 x 1.8 cm (CC by AP by transverse. On T1 imaging, it is intermediate signal with bands of low signal. On fluid sensitive sequences, it is intermediate high signal with curvilinear bands of low signal. There is no marrow edema. There is no cortical destruction. There is no soft tissue extension. After contrast, there is minimal enhancement. No abnormalities are evident. IMPRESSION: There is a nonaggressive appearing lesion in the right distal femoral metadiaphysis. The lesion is concerning for bone infarct/AVN. Assessment & Plan Assessment & Plan (1) Rheumatoid arthritis: Comment: Onset ~ 2003, RF positive. Treated with methotrexate and Remicade (failing response), changed to Humira ~2005 and combination helpful. 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 Off/on meds late [id number]. Enbrel stopped because of recurrent infections. Leflunomide caused skin rash, summer 2013. Orencia started 2013; methotrexate added 12/29 but stopped due to LFT elevations Xeljanz in place of Orencia Feb 2015 - helpful but further LFT elevations 02/03. Rinvoq in place of Xeljanz 01/2020 - doses at 15 mg 5 days a week Code(s): M06.9 - Rheumatoid arthritis, unspecified Category: Medical Qualifiers: Rheumatoid arthritis location: multiple sites Rheumatoid factor presence: without rheumatoid factor Qualified Code(s): M06.09 - Rheumatoid arthritis without rheumatoid factor, multiple sites Plan: #Seropositive RA Patient is a 59 y.o. female with seropositive RA here today Flare improved Imaging of knees showed bilateral AVN Seen by ortho and currently under their survellance Plan - Continue Rinvoq 15mg daily, 5 days per week - s/p steroid injection to left 5th DIP - PT - RTC 6 months - Labs before visit: CBC, CMP, ESR, CRP, hepatitis panel, T spot (2) Elevated transaminase level: Comment: likely due to fatty liver; 2021 CT scan of the abdomen showed fatty liver. No focal lesions. Code(s): R74.01 - Elevation of levels of liver transaminase levels Category: Medical Plan: #Elevated AST/ALT Labs stable. (3) Osteopenia: Comment: DEXA 05/03/20. Spine -1.3, Left femur neck -0.5, left femur total -0.2 DEXA 04/14/24. AP Spine -1.9, Left femur neck -0.8, left femur total -0.3 Code(s): M85.80 - Other specified disorders of bone density and structure, unspecified site Category: Medical Qualifiers: Osteopenia location: spine Qualified Code(s): M85.88 - Other specified disorders of bone density and structure, other site Plan: #Spine Osteopenia Discussed lifestyle changes including weight-bearing exercises to help with improvement in her spinal bone density. (4) Plantar fasciitis of left foot: Code(s): M72.2 - Plantar fascial fibromatosis Plan: #Plantar fasciitis of left foot Known history Conservative measures at home failing Plan - Refer to podiatry (5) Long-term use of immunosuppressant medication: Code(s): Z79.899 - Other snf (current) drug therapy Category: Medical Plan: #Long-term Use of DAVID inhibitor (Rinvoq) Discussed with patient the benefits and risks of DAVID inhibitors for the management of the rheumatic condition Benefits include reduce pain, maintenance of remission and reduction of flares Risks include thromboembolic events, skin cancer and nonmelanoma skin cancers, other forms of cancer, cardiovascular alcohol and mortality Advise patient that they are to hold the medication and for up to 1 week after a febrile illness or an open skin wound Plan I spent 35 minutes reviewing the record and labs, seeing the patient, discussing the treatment plan and documenting in the medical record ? Orders: Orders Complete Blood Count Auto Diff 6 Months Z79.899 - Other snf (current) drug therapy Comprehensive Met. 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 - Other ferry terminal supervisor (current) drug therapy T Spot TB 6 Months Z.89 - Other ferry terminal supervisor (current) drug therapy AMB Joint Injection/Aspiration 01/05/25 M19.042 - Primary osteoarthritis, left hand C Reactive Protein 6 Months Z.89 - Other ferry terminal supervisor (current) drug therapy Erythrocyte Sedimentation Rate 6 Months Z79.899 - Other ferry terminal supervisor (current) drug therapy Referrals Podiatry Referral M72.2 - Plantar fascial fibromatosis Medications: Refilled Rinvoq ER (upadacitinib) 15 mg PO DAILY 90 tabs 1RF 90 days NS M06.09 - Rheumatoid arthritis without rheumatoid factor, multiple sites Coding Level of Care Code Est Pt Level 4 (39250) Complex visit Add On G2211 Diagnoses Rheumatoid arthritis of multiple sites with negative rheumatoid factor M06.09 Rheumatoid arthritis location: multiple sites Rheumatoid factor presence: without rheumatoid factor Elevated transaminase level R74.01 Osteopenia of spine M85.88 Osteopenia location: spine Plantar fasciitis of left foot M72.2 Long-term use of immunosuppressant medication Z79.899 CPT Codes Coding - - Small joint: - Small Joint ([id number])
[2025-01-05 15:46] VITALS: BP 112/70; PULSE 73; O2SAT 96; BMI 30.8
== END 2025-01-05 16:00 | disposition home or self-care (01) ==
LOC: HO.RHES 15:05
PROVIDERS: PCP Internal Medicine; Visit Provider Student in an Organized Health Care Education/Training Program
DX: M06.09 Rheumatoid arthritis without rheumatoid factor, multiple sites (principal); M19.042 Primary osteoarthritis, left hand; R74.01 Elevation of levels of liver transaminase levels; M85.88 Other specified disorders of bone density and structure, other site; M72.2 Plantar fascial fibromatosis; Z79.899 Other long term (current) drug therapy
CPT/HCPCS: 20600; 99214

== ENCOUNTER → 2025-01-05 15:04 | Outpatient (BNVA) | payer BC, SELFPAY | PROVIDERS: PCP Internal Medicine; Visit Provider Student in an Organized Health Care Education/Training Program | DX: M06.09 Rheumatoid arthritis without rheumatoid factor, multiple sites (principal); R74.01 Elevation of levels of liver transaminase levels; M85.88 Other specified disorders of bone density and structure, other site; M72.2 Plantar fascial fibromatosis; Z79.899 Other long term (current) drug therapy | CPT/HCPCS: 20600; J3301 ==

== ENCOUNTER 2025-02-02 10:39 | Outpatient (AMB) | payer BC, SELFPAY ==
--- OUTSIDE RECORDS SUMMARY | 2022-06-05 09:13 | XMS_ITS | Encounter Summary ---
Author Organization [facility] Address [address] [place] [address] Phone Care Team Providers Care Crime Scene Analyst Name Role Phone Etelvina Sears MD Primary Care Provider [phone] Encounter Details Date Type Department Care Team (Late st Contact Info) Description 06/05/2022 10:13 AM EDT Hospital Encounter [facility] [address] [place] [phone] Sierra Khan CNP [address] [place] [address] [email or web address] Social History Tobacco Use Types Packs/Day Years [...] abnormality. IMPRESSION: Normal chest. us Sierra Khan LASTING ROOM MACHINE OPERATOR IMG XR CHEST Final Resul t documented in this encounter Visit Diagnoses Not on filedocumented in this encounter Care Teams Crime Scene Analyst Relationship Specialty Start Date End Date Etelvina Sears MD [address] [place] [address] [place] [phone] PCP - General Internal Medicine 05/25/22 documented as of this encounter Additional Source Comments The information contained in this document represents components of the legal health record. It is not the complete legal health record.[facility]
--- OUTSIDE RECORDS SUMMARY | 2022-06-14 08:43 | XMS_ITS | Encounter Summary ---
Author Organization [facility] Address [address] [place] [address] Phone Care Team Providers Care Organ Tuner Name Role Phone Etelvina Sears MD Primary Care Provider [phone] Encounter Details Date Type Department Care Team (Late st Contact Info) Description 06/14/2022 9:43 AM EDT Hospital Encounter [facility] [address] [place] [phone] Jesse Delatorre PA-C [address] [place] [phone] [email or web address] Social History Tobacco [...] on filedocumented in this encounter Care Teams Organ Tuner Relationship Specialty Start Date End Date Etelvina Sears MD [address] [place] [address] PCP - General Internal Medicine 05/25/22 documented as of this encounter Additional Source Comments The information contained in this document represents components of the legal health record. It is not the complete legal health record.[facility]
--- OUTSIDE RECORDS SUMMARY | 2023-07-02 13:30 | XMS_ITS | Encounter Summary ---
Author Organization [facility] Address [address] [place] [address] Phone Care Team Providers Care Canadian Bacon Tier Name Role Phone Etelvina Sears MD Primary Care Provider [phone] Encounter Details Date Type Department Care Team (Late st Contact Info) Description 07/02/2023 2:30 PM EDT Hospital Encounter [facility] [address] [place] [phone] Jesse Delatorre PA-C [address] [place] [phone] [email or web address] Social History Tobacco Use Types Packs/Day Years [...] on filedocumented in this encounter Care Teams Canadian Bacon Tier Relationship Specialty Start Date End Date Etelvina Sears MD [address] [place] [address] [place] [address] [phone] PCP - General Internal Medicine 05/25/22 documented as of this encounter Additional Source Comments The information contained in this document represents components of the legal health record. It is not the complete legal health record.[facility]
--- NOTE | 2025-02-02 11:03 | A.OFFVIS_ITS ---
Vital Signs 02/02/25 11:04 Height 5 ft 5.5 in Weight 184 lb BMI 30.2 Intake Visit Reasons: Plantar fascial fibromatosis Intake Note: Marian is a 60 year old female who presents to the office today as a new patient referred by her Photoengraving Photographer for Plantar fascial fibromatosis. Pt states the pain is located on bilateral arch of the foot and her right Achilles tendon gets tight and sore. She has tried stretching exercises and has found no relief for her symptoms. X rays was taken on 08/27/24 and is all set in patients chart. Allergies etanercept (From ENBREL) Allergy (Intermediate, Verified 01/05/25 15:46) RASH tofacitinib (From Xeljanz) Adverse Reaction (Intermediate, Verified 01/05/25 15:46) high LFT HPI HPI Plantar fascial fibromatosis: Details: The patient is a 60 year old female asthma, hypothyroidism, hyperlipidemia and seropositive nonerosive rheumatoid arthritis, presenting with evaluation of chronic left heel and right ankle pain. Plantar Fasciitis: The patient reports left heel pain that has been present for months. She has a history of bilateral plantar fasciitis surgery in 2009. After the surgery, her symptoms had improved, however she recently started to feel her plantar fascia is 'tight' again. Imaging from this past summer showed a small bone spur on the left foot. Achilles Tendinitis: The patient reports tightness in her right Achilles tendon, which is especially noticeable after prolonged periods of sitting. Aggravating factors include driving for a half-hour to and from her job. Bunion: The patient reports having a small bunion to both feet that is bothersome. Tinea Pedis: The patient has a known history of athlete's foot, which is associated with itching. She has used dmye-yil-jnpveqc clobetasol cream, which is a steroid and not an antifungal agent. 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 - Driving: She drives a half-hour to and from work. - Exercise: She performs stretching exercises. [facility] Medical History UTI (urinary tract infection) Osteopenia Pneumonia Elevated transaminase level Long-term use of immunosuppressant medication COVID-19 vaccine administered Hidradenitis suppurativa of left axilla Urge incontinence Hypercholesterolemia MRSA infection GERD (gastroesophageal reflux disease) Rheumatoid arthritis Hypothyroid Surgical History TMJ (sprain of temporomandibular joint) History of esophagogastroduodenoscopy (EGD) Hx of colonoscopy History of eye surgery Ulnar neuropathy at elbow of left upper extremity Plantar fasciitis, bilateral H/O tubal ligation Hx of tonsillectomy Inguinal hernia Family History Mother Myocardial infarct Father Lung cancer Paternal Uncle Bladder cancer Paternal Aunt Stomach cancer Maternal Uncle Myocardial infarct Social History Housing: House Are you a primary care aide to a significant other at home: No Do you presently have visiting nurse or other home services: No Alcohol intake: current Alcohol intake frequency: a few times a month Alcohol type: wine and hard liquor Comment: 3-4 x a month glass of wine, 2-3 x a month 1 glass Patient Tobacco Use Status: Never used Tobacco e-Cigarette/Vaping Use: Never Used Second Hand Smoke Exposure: No Advance Directives Date on File: 09/17/20 service: No Current occupational status: employed 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, 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 Cognitive needs: No Hearing needs: No Vision needs: Yes Review of Systems Const All systems reviewed & are unremarkable except as noted in HPI and below Physical Exam Vital Signs: BMI result Body Mass Index 30.2 Extrem Other: *Bilateral Lower Extremity Focused Exam Vascular: DP/PT 2/4, CFT<3s to digits, TG warm to cool, no pedal edema Derm: diffuse annular scaling bilateral feet. Neuro: Protective sensation grossly intact to bilateral lower extremities. MSK: moderate Tenderness on palpation of the plantar medial calcaneal tubercle left heel, moderate Tenderness on palpation along the distal insertion of the Achilles tendon right ankle, 3-4 Degrees of ankle dorsiflexion on knee extension right ankle, 5-7 degrees of ankle dorsiflexion on knee flexion. Left ankle 0 degrees of ankle dorsiflexion on knee extension, 5-7 degrees of ankle dorsiflexion on knee flexion. left plantar medial and central fascia bands are taut, no pain on windlass mechanism. bilateral 1st MTP range of motion intact without crepitus or pain. Mild dorsal- medial eminence bilaterally. Results Reviewed Results Reviewed: X-ray Read: 08/27/2024 X-ray right foot 3 views (AP, MO, Lateral) reviewed which shows mild plantar calcaneal spur, no fractures, dislocations, or gross abnormalities. Bone density is within normal limits. Normal anatomy. No evidence of swelling, foreign body. I personally reviewed the imaging and my findings are listed above. X-ray Read: 08/27/2024 X-ray left foot 3 views (AP, MO, Lateral) reviewed which shows mild- moderate plantar calcaneal spur. No fractures, dislocations, or gross abnormalities. Bone density is within normal limits. Normal anatomy. No evidence of swelling, foreign body. I personally reviewed the imaging and my findings are listed above. Assessment & Plan Assessment & Plan (1) Plantar fasciitis of left foot: Code(s): M72.2 - Plantar fascial fibromatosis Category: Medical Plan: * Discussed etiology of her plantar fasciitis. * Continue with stretching exercises. * A night splint for bilateral ankles was provided for use during rest to keep the ankle in a neutral position. * A referral will be placed for physical therapy. * Discussed possible steroid injections in the future. * An MRI will be considered to evaluate for underlying scar tissue if there is no improvement after injections. * Surgical release may be discussed if there is no improvement. * Follow up in 4-6 weeks (2) Achilles tendinitis of right lower extremity: Code(s): M76.61 - Achilles tendinitis, right leg Category: Medical Plan: * - Advised to continue stretching exercises, increasing the hold time to 15 seconds. * - A course of oral steroids (Medrol Dosepak) was offered, but the patient deferred for now. * - Injections into the tendon were not offered due to the risk of injury. (3) Tinea pedis: Code(s): B35.3 - Tinea pedis Category: Medical Qualifiers: Laterality: bilateral Qualified Code(s): B35.3 - Tinea pedis Plan: * Rx clotrimazole-betamethasone ointment (4) Hallux valgus, bilateral: Code(s): M20.11 - Hallux valgus (acquired), right foot; M20.12 - Hallux valgus (acquired), left foot Category: Medical Plan: * - Recommended trying gel bunion spacers, which can be purchased online. * - Advised that surgery is not indicated at this time. (5) Acquired hallux limitus of both feet: Code(s): M20.5X1 - Other deformities of toe(s) (acquired), right foot; M20.5X2 - Other deformities of toe(s) (acquired), left foot Category: Medical Plan: * - Monitor for symptoms as the condition is currently asymptomatic. * - If pain develops, conservative measures such as injections would be considered before surgery. Plan The patient was educated on the contributing factors to her foot pain, including the nature of her job as a nurse. The conservative treatment ladder for plantar fasciitis was discussed, including stretching, night splints, physical therapy, and injections as initial steps before considering surgery. She was counseled that her plantar fascia is taught but no palpable fibrotic tissue was felt. She was educated on the difference between her cxjt-jiz-qymabol steroid cream and the prescribed antifungal-steroid combination cream for her athlete's foot. Reassurance was provided that her bunion and early arthritis do not require surgical intervention at this time. Orders: Orders PT Evaluation and Treatment 02/02/25 M72.2 - Plantar fascial fibromatosis, M76.61 - Achilles tendinitis, right leg Medications: New clotrimazole-betamethasone 1-0.05 % Apply to the bottom of both feet 1 appl topical BID 15 grams 3RF athlete's foot 4 months B35.3 - Tinea pedis Coding Level of Care Code New Pt Level 4 (70233) Diagnoses Plantar fasciitis of left foot M72.2 Achilles tendinitis of right lower extremity M76.61 Tinea pedis of both feet B35.3 Laterality: bilateral Hallux valgus, bilateral M20.11; M20.12 Acquired hallux limitus of both feet M20.5X1; M20.5X2 Time Spent (min) 35
[2025-02-02 11:04] VITALS: BMI 30.2
--- OUTSIDE RECORDS SUMMARY | 2025-02-02 12:21 | XMS_ITS | Encounter Summary ---
Author Organization [facility] Address [address] [place] [address] Phone Care Team Providers Care Vehicle Controls Engineer Name Role Phone Etelvina Sears MD Primary Care Provider Encounter Details Date Type Department Care Team (Late st Contact Info) Description 08/21/2022 Procedure Pass [facility] [address] [place] [id number] Social History Tobacco Use Types Packs/Day Years [...] on filedocumented in this encounter Care Teams Vehicle Controls Engineer Relationship Specialty Start Date End Date Etelvina Sears MD [address] [place] [address] PCP - General Internal Medicine 05/25/22 documented as of this encounter Additional Source Comments The information contained in this document represents components of the legal health record. It is not the complete legal health record.[facility]
--- OUTSIDE RECORDS SUMMARY | 2025-02-02 12:21 | XMS_ITS | Patient Health Record ---
[facility] Address [address] [place] [address] Care Team Providers Care Security Agent Name Role Phone Etelvina Sears Primary Care Provider Justino Duque Unavailable [phone] Allergies Allergen (clinical drug ingredient) Drug/Non Drug [...] Status Risk Notes Problem Acquired hallux valgus (19626463) Hallux valgus (acquired), right foot (M20.11) Active confirmed Problem Acquired hammer toe of right foot (45732999180537 05) Other hammer toe(s) (acquired), right foot (M20.41) Active confirmed Problem Acquired hammer toe of left foot (00842547224824 03) Other hammer toe(s) (acquired), left foot (M20.42) Active confirmed Problem Pain in limb (32495831) Pain in unspecified foot (M79.673) Active confirmed Problem Rheumatoid arthritis (29276430) Rheumatoid arthritis involving multiple sites with positive rheumatoid factor (M05.79) Active confirmed Plan Of Treatment Pending Test Test Name Order Date X ray : Foot, left 3V 03/15/2015 73660, X5846-QPNGL/INJECT, JOINT/BURSA 0 04/02/2020 Insurance Providers Payer Name Payer Address Payer Phone Subscriber Number Group Number Insured Name Patient Relationship to Insured Coverage Start Date Coverage End Date Blue Benefits [address] [address] [place] [address] [id number] Marian Doran Self - patient is the [...]
--- OUTSIDE RECORDS SUMMARY | 2025-02-02 12:22 | XMS_ITS | Encounter Summary ---
Author Organization [facility] Address [address] [place] [address] Phone Care Team Providers Care Paper Colorer Name Role Phone Etelvina Sears MD Primary Care Provider [phone] Encounter Details Date Type Department Care Team (Late st Contact Info) Description 12/10/2022 Procedure Pass MRI, [facility] [address] [place] [address] Social History Tobacco Use Types [...] filedocumented in this encounter Care Teams Paper Colorer Relationship Specialty Start Date End Date Etelvina Sears MD [address] [place] [phone] PCP - General Internal Medicine 05/25/22 documented as of this encounter Additional Source Comments The information contained in this document represents components of the legal health record. It is not the complete legal health record.[facility]
--- OUTSIDE RECORDS SUMMARY | 2025-02-02 12:22 | XMS_ITS | Encounter Summary ---
Author Organization [facility] Address [address] [place] [address] Phone Care Team Providers Care Food And Beverage Service Manager Name Role Phone Etelvina Sears MD Primary Care Provider [phone] Encounter Details Date Type Department Care Team (Late st Contact Info) Description 02/25/2023 Procedure Pass [facility] [place], [place] [address] 2nd [address], [address] [place] [address] Social History Tobacco Use Types Packs/Day Years [...] filedocumented in this encounter Care Teams Food And Beverage Service Manager Relationship Specialty Start Date End Date Etelvina Sears MD [address] [facility] [address] [place] [phone] PCP - General Internal Medicine 05/25/22 documented as of this encounter Additional Source Comments The information contained in this document represents components of the legal health record. It is not the complete legal health record.[facility]
--- OUTSIDE RECORDS SUMMARY | 2025-02-02 12:22 | XMS_ITS | Clinical Summary ---
Author Organization [facility] Address [address] [place] [address] Care Team Providers Care Correctional Substance Abuse Counselor Name Role Phone Unavailable Primary Care Provider Unavailabl e Surgical History Surgery Date Site/Laterality Comments TUBAL LIGATION PROCEDURE: HISTORICAL TUBAL LIGATION HERNIA REPAIR Bilateral PROCEDURE: HISTORICAL HERNIA REPAIR/ING; COMMENT: around age 8 y/o BLADDER SUSPENSION 2010 PROCEDURE: HISTORICAL BLADDER SUSPENSION; COMMENT: Dr. Maldonado, bladder sling EYE SURGERY PROCEDURE: MD TRABECULOPLASTY BY LASER SURGERY; COMMENT: right lasik on right OTHER SURGICAL HISTORY PROCEDURE: MD REPOSITIONING IO LENS PROSTHESIS REQ INC SPX; COMMENT: left eye FOOT SURGERY PROCEDURE: HISTORICAL FOOT SURGERY; COMMENT: plantar fascia repair bilateral OTHER SURGICAL HISTORY PROCEDURE: MD SUTURE NERVE REQ XTNSV MOBIL/TRPOS NERVE; COMMENT: left ulnar nerve UPPER GASTROINTESTINAL ENDOSCOPY 02/23/2012 PROCEDURE: MD UPPER GI ENDOSCOPY PERFORMED COLONOSCOPY 03/12/2009 PROCEDURE: [...] abscesses due to MRSA. Off/on meds late 4413-2262. Enbrel stopped because of recurrent infections. Leflunomide [...] on file Sexual Orientation Not on file Plan of Treatment Health Maintenance Due Date [...] RESULTING AGENCY - 07/06/2018 4:50 PM EDT [id number] THINPREP PAP, IMAGED: NEGATIVE FOR SQUAMOUS INTRAEPITHELIAL [...] us Eileen Galvan MD LAB CYTOLOGY ORDERABLES Timoteo al Result HISTORICAL TESTING LAB RESULTING AGENCY from Last 3 Months or Most Recently Relevant to Health Maintenance
--- OUTSIDE RECORDS SUMMARY | 2025-02-02 12:22 | XMS_ITS | Encounter Summary ---
Author Organization [facility] Address [address] [place] [address] Phone Care Team Providers Care Graphic Design Assistant Name Role Phone Etelvina Sears MD Primary Care Provider Reason for Referral * MRI/CAT Scan - Closed Specialty Diagnoses / Procedures Referred By Contac t Referred To Contact Radiology Diagnoses TMJ disease Procedures CT 3D Reconstruction Face CHG 3D RENDERING W/INTERP&POSTPROC DIFF WORK STATION Gabe Soriano MD Phone: tel: [email or web address] Referral ID Status Reason Start Date Expiration Date Visits Re quested Visits Authorized [id number] Closed 08/09/2023 1 1 Encounter Details Date Type Department Care Team (Late st Contact Info) Description 08/09/2023 Ancillary Orders [facility] Steffi ALY [address] [facility], 6th [place] [address] Gabe Soriano MD [address] [place] [address] [email or web address] TMJ disease (Primary Dx) Social History Tobacco [...] refer to the primary CT accession number [id number] for the full report indicating 3D images were created on an independent workstation and interpreted. Procedure Note Ray Harris MD - 08/13/2023 Please refer to the primary CT accession number [id number] for the fullreport indicating 3D images were created on an independent workstation andinterpreted. Etelvina Sears MD IMG CT Final Result documented in this encounter Visit Diagnoses Diagnosis TMJ disease- Primary Unspecified temporomandibular joint disorders TMJ disease Unspecified temporomandibular joint disorders documented in this encounter Care Teams Graphic Design Assistant Relationship Specialty Start Date End Date Etelvina Sears MD [address] [place] [address] PCP - General Internal Medicine 05/25/22 documented as of this encounter Additional Source Comments The information contained in this document represents components of the legal health record. It is not the complete legal health record.[facility]
--- OUTSIDE RECORDS SUMMARY | 2025-02-02 12:22 | XMS_ITS | Encounter Summary ---
Author Organization [facility] Address [address] [place] [address] Phone Care Team Providers Care Analytics Analyst Name Role Phone Etelvina Sears MD Primary Care Provider [phone] Encounter Details Date Type Department Care Team (Late st Contact Info) Description 08/06/2023 Procedure Pass [facility], [place] [address] [facility], 6th [place] [address] Social History Tobacco Use Types Packs/Day Years [...] on filedocumented in this encounter Care Teams Analytics Analyst Relationship Specialty Start Date End Date Etelvina Sears MD [address] [facility] [address] [place] [phone] PCP - General Internal Medicine 05/25/22 documented as of this encounter Additional Source Comments The information contained in this document represents components of the legal health record. It is not the complete legal health record.[facility]
--- OUTSIDE RECORDS SUMMARY | 2025-02-02 12:22 | XMS_ITS | Encounter Summary ---
Author Organization [facility] Address [address] [place] [address] Phone Care Team Providers Care Yardage Control Clerk Name Role Phone Etelvina Sears MD Primary Care Provider [phone] Encounter Details Date Type Department Care Team ([facility] st Contact Info) Description 08/09/2023 Procedure Pass [facility] IMG 3DCTMR MG [address] [place] [address] Social History Tobacco Use Types Packs/Day Years [...] on filedocumented in this encounter Care Teams Yardage Control Clerk Relationship Specialty Start Date End Date Etelvina Sears MD [address] [place] [phone] PCP - General Internal Medicine 05/25/22 documented as of this encounter Additional Source Comments The information contained in this document represents components of the legal health record. It is not the complete legal health record.[facility]
--- OUTSIDE RECORDS SUMMARY | 2025-02-02 12:22 | XMS_ITS | Encounter Summary ---
Author Organization [facility] Address [address] [place] [address] Phone Care Team Providers Care Physician Obstetrician Name Role Phone Etelvina Sears MD Primary Care Provider Encounter Details Date Type Department Care Team ([facility] st Contact Info) Description 06/17/2022 Procedure Pass [facility] [address]th [place] [address] Social History Tobacco Use Types Packs/Day Years [...] on filedocumented in this encounter Care Teams Physician Obstetrician Relationship Specialty Start Date End Date Etelvina Sears MD [address] [place] [address] PCP - General Internal Medicine 05/25/22 documented as of this encounter Additional Source Comments The information contained in this document represents components of the legal health record. It is not the complete legal health record.[facility]
--- OUTSIDE RECORDS SUMMARY | 2025-02-02 12:22 | XMS_ITS | Clinical Summary ---
Author Organization [facility] Address [address] [address] Phone Care Team Providers Care Securities Dealer Name Role Phone Etelvina Sears MD Primary Care Provider [phone] Allergies Active Allergy Reactions Criticality Noted Date [...] abscesses due to MRSA. Off/on meds late 2893-1275. Enbrel stopped because of recurrent infections. Leflunomide [...] this topic Medical Devices Implanted Type Area Special Education Curriculum Specialist Device Identifier Shelf Expiration Date Model / Serial / Lot Tmj Unilateral Implant Pt Andreea Implanted:Qty: 1 on 08/06/2023 by Nick Reyes MD, DDS at [facility] Right: Face 03/15/2025 [id number] / / [id number] Insurance [employer] [facility] [employer] [facility] [employer] Advance Directives For more information, please contact: [phone] (9AM - 5PM [facility], Wednesday-Wednesday) * Full Code (Latest Code [...] Code Status Confirmed With: Patient Care Teams Securities Dealer Relationship Specialty Start Date End Date Etelvina Sears MD [address] [place] [phone] PCP - General Internal Medicine 05/25/22 Additional Source Comments The information contained in this document represents components of the legal health record. It is not the complete legal health record.[facility]
--- OUTSIDE RECORDS SUMMARY | 2025-02-02 12:22 | XMS_ITS | Encounter Summary ---
Author Organization [facility] Address [address] [facility] [address] [place] [address] Phone Care Team Providers Care Church Worker Name Role Phone Etelvina Sears MD Primary Care Provider Encounter Details Date Type Department Care Team ([facility] st Contact Info) Description 02/25/2023 Procedure Pass [facility] 3DCTMR MG [address] [place] [address] Social History Tobacco Use Types Packs/Day Years [...] on filedocumented in this encounter Care Teams Church Worker Relationship Specialty Start Date End Date Etelvina Sears MD [address] [place] [phone] PCP - General Internal Medicine 05/25/22 documented as of this encounter Additional Source Comments The information contained in this document represents components of the legal health record. It is not the complete legal health record.[facility]
--- OUTSIDE RECORDS SUMMARY | 2025-02-02 12:22 | XMS_ITS | Encounter Summary ---
Author Organization [facility] Address [address] [place] [address] Phone Care Team Providers Care Sports Umpire Name Role Phone Etelvina Sears MD Primary Care Provider Encounter Details Date Type Department Care Team (Late st Contact Info) Description 06/17/2022 Procedure Pass [facility] [address] [place] [address] Social History Tobacco Use Types Packs/Day Years [...] on filedocumented in this encounter Care Teams Sports Umpire Relationship Specialty Start Date End Date Etelvina Sears MD [address] [place] [address] PCP - General Internal Medicine 05/25/22 documented as of this encounter Additional Source Comments The information contained in this document represents components of the legal health record. It is not the complete legal health record.[facility]
--- OUTSIDE RECORDS SUMMARY | 2025-02-02 12:22 | XMS_ITS | Encounter Summary ---
Author Organization [facility] Address [address] [place] [address] Phone Care Team Providers Care Lay Out Carpenter Name Role Phone Etelvina Sears MD Primary Care Provider [phone] Encounter Details Date Type Department Care Team ([facility] Contact Info) Description 08/06/2023 Procedure Pass [facility] PERIOPERATIVE DEPT [address] [place] [phone] Social History Tobacco Use Types Packs/Day [...] on filedocumented in this encounter Care Teams Lay Out Carpenter Relationship Specialty Start Date End Date Etelvina Sears MD [address] [place] [phone] PCP - General Internal Medicine 05/25/22 documented as of this encounter Additional Source Comments The information contained in this document represents components of the legal health record. It is not the complete legal health record.[facility]
== END 2025-02-02 11:34 | disposition home or self-care (01) ==
LOC: HO.HPODS 10:40
PROVIDERS: PCP Internal Medicine; Visit Provider Student in an Organized Health Care Education/Training Program
DX: M72.2 Plantar fascial fibromatosis (principal); M76.61 Achilles tendinitis, right leg; B35.3 Tinea pedis; M20.11 Hallux valgus (acquired), right foot; M20.12 Hallux valgus (acquired), left foot; M20.5X1 Other deformities of toe(s) (acquired), right foot; M20.5X2 Other deformities of toe(s) (acquired), left foot
CPT/HCPCS: 99204

== ENCOUNTER 2025-02-09 13:50 | Outpatient (REF) | payer BC, SELFPAY ==
--- OUTSIDE RECORDS SUMMARY | 2022-06-05 09:13 | XMS_ITS | Encounter Summary ---
Author Organization [facility] Address [address] [facility] [address] [place] [address] Phone Care Team Providers Care Clinical Field Specialist Name Role Phone Etelvina Sears MD Primary Care Provider [phone] Encounter Details Date Type Department Care Team (Late st Contact Info) Description 06/05/2022 10:13 AM EDT Hospital Encounter [facility] [address] [place] [address] Sierra Khan CNP [address] [place] [phone] [email or web address] Social History Tobacco Use Types Packs/Day Years Used Date Smoking Tobacco: Never Passive Smoke Exposure: Never Smokeless Tobacco: Never Alcohol Use Standard Drinks/Week Comments Yes 2 (1 standard drink = 0.6 oz pur e alcohol) rarely Education Answer Date Recorded Are you interested in more education? Not on patsy e 06/13/2022 Are you concerned about learning? Not on file 06/13/2022 No 06/13/2022 No 06/13/2022 Digital Access Answer Date Recorded No 07/10/2022 No 07/10/2022 Reliable internet access at home? Not on file 07/10/2022 Device with a working camera? Not on file Intimate Partner Violence Answer Date R ecorded Are you denied basic needs s uch as food, clothing, or medical care? No 08/21/2022 In the past 12 months have y ou been in a relationship with a person who hurts, threatens, or tries to control you? No 08/21/2022 Are you denied basic needs s uch as food, clothing, or medical care? No 08/21/2022 In the past 12 months have y ou been in a relationship with a person who hurts, threatens, or tries to control you? No 08/21/2022 Comments Unknown Sex and Gender Information Value Date Recorded Sex Assigned at Female 05/25/2022 11:42 AM EDT Legal Sex Female 3:18 PM EDT Gender Identity Female 05/25/2022 11:36 AM EDT Sexual Orientation Straight 05/25/2022 11 :42 AM EDT documented as of this encounter Plan of Treatment Not on file documented as of this encounter Procedures Procedure Name Priority Date/Time Associated Diagnosis Comments XR CHEST PA AND LATERAL 2 VIEWS Urgent/patient waiting 06/05/2022 10:26 AM EDT Cough documented in this encounter Results * XR CHEST PA AND LATERAL 2 VIEWS (06/05/2022 10:26 AM EDT) Anatomical Region Laterality Modality Chest Computed Radiogr aphy 06/05/2022 10:2 8 AM EDT Impressions 06/05/2022 10:28 AM EDT Normal chest. Narrative 06/05/2022 10:28 AM EDT XR CHEST PA AND LATERAL 2 VIEWS COMPARISON: None FINDINGS: Devices/Tubes/Lines: None. Lungs: Normal. The lungs are clear. No focal consolidation or pulmonary edema. Pleura: Normal. No pleural effusion or pneumothorax. Heart/Mediastinum: Normal heart and mediastinum. Bones/Soft Tissues: Normal. No significant skeletal abnormality. Procedure Note Geovanni Valentine MD - 06/05/2022 XR CHEST PA AND LATERAL 2 VIEWS COMPARISON: None FINDINGS: Devices/Tubes/Lines: None. Lungs: Normal. The lungs are clear. No focal consolidation or pulmonaryedema. Pleura: Normal. No pleural effusion or pneumothorax. Heart/Mediastinum: Normal heart and mediastinum. Bones/Soft Tissues: Normal. No significant skeletal abnormality. IMPRESSION: Normal chest. us Sierra Khan KISS MIXER IMG XR CHEST Final Resul t documented in this encounter Visit Diagnoses Not on filedocumented in this encounter Care Teams Clinical Field Specialist Relationship Specialty Start Date End Date Etelvina Sears MD [address] [place] [address] [place] [phone] PCP - General Internal Medicine 05/25/22 documented as of this encounter Additional Source Comments The information contained in this document represents components of the legal health record. It is not the complete legal health record.[facility]
--- OUTSIDE RECORDS SUMMARY | 2022-06-14 08:43 | XMS_ITS | Encounter Summary ---
Author Organization [facility] Address [address] [place] [address] Phone Care Team Providers Care Home Care Associate Name Role Phone Etelvina Sears MD Primary Care Provider [phone] Encounter Details Date Type Department Care Team (Late st Contact Info) Description 06/14/2022 9:43 AM EDT Hospital Encounter [facility] [address] [place] [phone] Jesse Delatorre PA-C [address] [place] [phone] [email or web address] Social History Tobacco Use Types Packs/Day Years [...] XR CHEST PA AND LATERAL 2 VIEWS Routine 06/14/2022 9:48 AM EDT Bronchitis documented in this encounter Results * XR CHEST PA AND LATERAL 2 VIEWS (06/14/2022 9:48 AM EDT) Anatomical Region Laterality Modality Chest Computed Radiogr aphy 06/14/2022 10:0 3 AM EDT Impressions 06/14/2022 10:04 AM EDT No focal consolidation or pulmonary edema. Narrative 06/14/2022 10:04 AM EDT XR CHEST PA AND LATERAL 2 VIEWS COMPARISON: XR CHEST PA AND LATERAL 2 VIEWS FINDINGS: Devices/Tubes/Lines: None. Lungs: No focal consolidation or pulmonary edema. Pleura: No pleural effusion or pneumothorax. Heart/Mediastinum: Unchanged in appearance. Bones/Soft Tissues: No significant skeletal abnormality. Procedure Note Bella Arroyo MD - 06/14/2022 XR CHEST PA AND LATERAL 2 VIEWS COMPARISON: XR CHEST PA AND LATERAL 2 VIEWS FINDINGS: Devices/Tubes/Lines: None. Lungs: No focal consolidation or pulmonary edema. Pleura: No pleural effusion or pneumothorax. Heart/Mediastinum: Unchanged in appearance. Bones/Soft Tissues: No significant skeletal abnormality. IMPRESSION: No focal consolidation or pulmonary edema. Jesse Delatorre PA-C IMG XR CHEST Final Result documented in this encounter Visit Diagnoses Not on filedocumented in this encounter Care Teams Home Care Associate Relationship Specialty Start Date End Date Etelvina Sears MD [address] [place] [phone] PCP - General Internal Medicine 05/25/22 documented as of this encounter Additional Source Comments The information contained in this document represents components of the legal health record. It is not the complete legal health record.[facility]
--- OUTSIDE RECORDS SUMMARY | 2023-07-02 13:30 | XMS_ITS | Encounter Summary ---
Author Organization [facility] Address [address] [place] [address] Phone Care Team Providers Care Timber Girdler Name Role Phone Etelvina Sears MD Primary Care Provider [phone] Encounter Details Date Type Department Care Team (Late st Contact Info) Description 07/02/2023 2:30 PM EDT Hospital Encounter [facility] [address] [place] [phone] Jesse Delatorre PA-C [address] [place] [phone] [email or web address] Social [...] on filedocumented in this encounter Care Teams Timber Girdler Relationship Specialty Start Date End Date Etelvina Sears MD [address] [place] [address] [place] [address] [phone] PCP - General Internal Medicine 05/25/22 documented as of this encounter Additional Source Comments The information contained in this document represents components of the legal health record. It is not the complete legal health record.[facility]
--- OUTSIDE RECORDS SUMMARY | 2025-02-09 13:53 | XMS_ITS | Encounter Summary ---
Author Organization [facility] Address [address] [place] [address] Phone Care Team Providers Care Net Developer With Wcf Name Role Phone Etelvina Sears MD Primary Care Provider [phone] Encounter Details Date Type Department Care Team (Late st Contact Info) Description 02/25/2023 Procedure Pass [facility], [place] [address], [address] [place] [address] Social History Tobacco Use Types Packs/Day Years [...] on filedocumented in this encounter Care Teams Net Developer With Wcf Relationship Specialty Start Date End Date Etelvina Sears MD [address] [facility] [address] [place] [phone] PCP - General Internal Medicine 05/25/22 documented as of this encounter Additional Source Comments The information contained in this document represents components of the legal health record. It is not the complete legal health record.[facility]
--- OUTSIDE RECORDS SUMMARY | 2025-02-09 13:53 | XMS_ITS | Encounter Summary ---
Author Organization [facility] Address [address] [place] [address] Phone Care Team Providers Care Revenue Stamp Clerk Name Role Phone Etelvina Sears MD Primary Care Provider [phone] Encounter Details Date Type Department Care Team (Late st Contact Info) Description 08/21/2022 Procedure Pass [facility] [address] [place] [phone] Social History Tobacco Use Types Packs/Day Years [...] on filedocumented in this encounter Care Teams Revenue Stamp Clerk Relationship Specialty Start Date End Date Etelvina Sears MD [address] [place] [phone] PCP - General Internal Medicine 05/25/22 documented as of this encounter Additional Source Comments The information contained in this document represents components of the legal health record. It is not the complete legal health record.[facility]
--- OUTSIDE RECORDS SUMMARY | 2025-02-09 13:53 | XMS_ITS | Encounter Summary ---
Author Organization [employer] [facility] Prior to 12/17/2023 Address [address] [place] [address] Care Team Providers Care Windows Laptop Technician Name Role Phone Issac Wilson MD Primary Care Provider Frances Wood MD Primary Care Provider Unavail able Issac Wilson MD Primary Care Provider Jeri Ramírez, Pcp Primary Care Provider Unavailabl e Reason for Visit * Reason Comments E-prescribe Rx Request Encounter Details Date Type Department Care Team Description 09/29/2016 Refill Adult Medicine [address] [address] Roscoe Strickland MD E-prescribe Rx Request Social [...] insurance carrier is: Payor: LIVAN / Plan: [employer] $15 [employer] [id number] / Product Type: PPO [id number] documented in this encounter Plan of Treatment Not on file documented as of this encounter Visit Diagnoses Not on filedocumented in this encounter Care Teams Windows Laptop Technician Relationship Specialty Start Date End Date Issac Wilson MD PCP - General Internal Medicine 09/28/13 12/20/18 Frances Gloria MD PCP - General Internal Medicine 12/21/18 12/21/19 Issac Wilson MD PCP - General Internal Medicine 12/22/19 03/12/20 Eusebia Ramírez PCP - General Internal Medicine 03/13/20 documented as of this encounter
--- OUTSIDE RECORDS SUMMARY | 2025-02-09 13:53 | XMS_ITS | Encounter Summary ---
Author Organization [employer] [facility] Prior to 12/17/2023 Address [address] [place] [address] Care Team Providers Care Wool Carder Name Role Phone Roscoe Strickland MD Primary Care Provider Issac Barragan MD Primary Care Provider Frances Wood MD Primary Care Provider Unavail able Issac Wilson MD Primary Care Provider Jeri Ramírez, Pcp Primary Care Provider Unavailjonatan e Encounter Details Date Type Department Care Team Description 02/23/2011 Senior Information Security Consultant Report Medical Records [address] [place] [address] Riccardo Hernandez MD, MD Social History Tobacco [...] on filedocumented in this encounter Care Teams Wool Carder Relationship Specialty Start Date End Date Roscoe [...]
--- OUTSIDE RECORDS SUMMARY | 2025-02-09 13:53 | XMS_ITS | Encounter Summary ---
Author Organization [facility] Prior to 12/17/2023 Address [address] [place] [address] Care Team Providers Care Director Translational Name Role Phone Issac Wilson MD Primary Care Provider Frances Wood MD Primary Care Provider Unavail able Issac Wilson MD Primary Care Provider Jeri Ramírez, Pcp Primary Care Provider Unavailabl e Encounter Details Date Type Department Care Team Description 03/31/2018 [facility] Medical Records [address] [place] [address] Senthil Reyes MD Social History Tobacco Use [...] filedocumented in this encounter Care Teams Director Translational Relationship Specialty Start Date End Date Issac Wilson MD PCP - General Internal Medicine 09/28/13 12/20/18 Frances Gloria MD PCP - General Internal Medicine 12/21/18 12/21/19 Issac Wilson MD PCP - General Internal Medicine 12/22/19 03/12/20 Eusebia Ramírez PCP - General Internal Medicine 03/13/20 documented as of this encounter
--- OUTSIDE RECORDS SUMMARY | 2025-02-09 13:53 | XMS_ITS | Encounter Summary ---
Author Organization [facility] Address [address] [facility] [address] [place] [address] Phone Care Team Providers Care Caddy Master Name Role Phone Etelvina Sears MD Primary Care Provider [phone] Encounter Details Date Type Department Care Team ([facility] st Contact Info) Description 08/09/2023 Procedure Pass [facility] 3DCTMR MG [address] [place] [address] Social History Tobacco Use Types Packs/Day Years [...] on filedocumented in this encounter Care Teams Caddy Master Relationship Specialty Start Date End Date Etelvina Sears MD [address] [place] [phone] PCP - General Internal Medicine 05/25/22 documented as of this encounter Additional Source Comments The information contained in this document represents components of the legal health record. It is not the complete legal health record.[facility]
--- OUTSIDE RECORDS SUMMARY | 2025-02-09 13:53 | XMS_ITS | Encounter Summary ---
Author Organization [facility] Prior to 12/17/2023 Address [address] [place] [address] Care Team Providers Care Monument Setter Helper Name Role Phone Community, Pcp Primary Care Provider Unavailabl e Encounter Details Date Type Department Care Team Description 03/13/2020 Telephone Adult [address] [address] Community, Pcp Social History Tobacco Use Types [...] on filedocumented in this encounter Care Teams Monument Setter Helper Relationship Specialty Start Date End Date Community, Pcp PCP - General Internal Medicine 03/13/20 documented as of this encounter
--- OUTSIDE RECORDS SUMMARY | 2025-02-09 13:53 | XMS_ITS | Patient Health Record ---
Author Organization [facility] Address [address] [place] [address] Care Team Providers Care Banbury Machine Operator Name Role Phone Etelvina Sears Primary Care Provider Justino Duque Unavailable [phone] Allergies Allergen (clinical drug ingredient) Drug/Non Drug [...] Status Risk Notes Problem Acquired hallux valgus (64388143) Hallux valgus (acquired), right foot (M20.11) Active confirmed Problem Acquired hammer toe of right foot (75111533548976 05) Other hammer toe(s) (acquired), right foot (M20.41) Active confirmed Problem Acquired hammer toe of left foot (55748199016188 03) Other hammer toe(s) (acquired), left foot (M20.42) Active confirmed Problem Pain in limb (25130158) Pain in unspecified foot (M79.673) Active confirmed Problem Rheumatoid arthritis (18208271) Rheumatoid arthritis involving multiple sites with positive rheumatoid factor (M05.79) Active confirmed Plan Of Treatment Pending Test Test Name Order Date X ray : Foot, left 3V 03/15/2015 55317, [id number]/INJECT, JOINT/BURSA 0 04/02/2020 Insurance Providers Payer Name Payer Address Payer Phone Subscriber Number Group Number Insured Name Patient Relationship to Insured Coverage Start Date Coverage End Date Blue Benefits [address] [address] [place] [address] [id number] Marian Doran Self - patient is the [...]
--- OUTSIDE RECORDS SUMMARY | 2025-02-09 13:53 | XMS_ITS | Encounter Summary ---
Author Organization [facility] Prior to 12/17/2023 Address [address] [place] [address] Care Team Providers Care Jailor Name Role Phone Roscoe Strickland MD Primary Care Provider Issac Barragan MD Primary Care Provider Frances Wood MD Primary Care Provider Unavail Issac Short MD Primary Care Provider Jeri Ramírez Pcp Primary Care Provider Unavailjonatan e Encounter Details Date Type Department Care Team Description 05/27/2013 [facility] Medical Records [address] [place] [address] Nahun Perdue PA-C Social History Tobacco Use [...] on filedocumented in this encounter Care Teams Jailor Relationship Specialty Start Date End Date Roscoe [...]
--- OUTSIDE RECORDS SUMMARY | 2025-02-09 13:53 | XMS_ITS | Encounter Summary ---
Author Organization [facility] Prior to 12/17/2023 Address [address] [place] [address] Care Team Providers Care Collections Director Name Role Phone Roscoe Strickland MD Primary Care Provider Issac Barragan MD Primary Care Provider Frances Wood MD Primary Care Provider [facility] Issac Short MD Primary Care Provider Jeri ervin [facility] Pcp [facility] Encounter Details Date Type Department Care Team Description 05/27/2010 [facility] Medical Records [address] [place] [address] Quiana Cosme MD Social History Tobacco Use [...] on filedocumented in this encounter Care Teams Collections Director Relationship Specialty Start Date End Date [...]
--- OUTSIDE RECORDS SUMMARY | 2025-02-09 13:53 | XMS_ITS | Clinical Summary ---
Author Organization [facility] Address [address] [place] [address] Care Team Providers Care Pharmacist Technician Name Role Phone Unavailable Primary Care Provider Unavailabl e Surgical History Surgery Date Site/Laterality Comments TUBAL LIGATION PROCEDURE: HISTORICAL TUBAL LIGATION HERNIA REPAIR Bilateral PROCEDURE: HISTORICAL HERNIA REPAIR/ING; COMMENT: around age 8 y/o BLADDER SUSPENSION 2010 PROCEDURE: HISTORICAL BLADDER SUSPENSION; COMMENT: Dr. 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 Off/on meds late [id number]. Enbrel stopped because of recurrent infections. Leflunomide [...] RESULTING AGENCY - 07/06/2018 4:50 PM EDT [id number] THINPREP PAP, IMAGED: NEGATIVE FOR SQUAMOUS INTRAEPITHELIAL [...]
--- OUTSIDE RECORDS SUMMARY | 2025-02-09 13:53 | XMS_ITS | Encounter Summary ---
Author Organization [facility] Address [address] [facility] [facility] [address] [place] [address] Phone Care Team Providers Care Breaker Boss Name Role Phone Etelvina Sears MD Primary Care Provider [phone] Encounter Details Date Type Department Care Team ([facility] st Contact Info) Description 02/25/2023 Procedure Pass [facility] 3DCTMR MG [address] [place] [address] Social History Tobacco Use Types Packs/Day Years [...] on filedocumented in this encounter Care Teams Breaker Boss Relationship Specialty Start Date End Date Etelvina Sears MD [address] [place] [phone] PCP - General Internal Medicine 05/25/22 documented as of this encounter Additional Source Comments The information contained in this document represents components of the legal health record. It is not the complete legal health record.[facility]
--- OUTSIDE RECORDS SUMMARY | 2025-02-09 13:53 | XMS_ITS | Encounter Summary ---
Author Organization [facility] Prior to 12/17/2023 Address [address] [place] [address] Care Team Providers Care Philosophy Faculty Member Name Role Phone Issac Wilson MD Primary Care Provider Frances Wood MD Primary Care Provider Unavail able Issac Wilson MD Primary Care Provider Jeri Ramírez Pcp Primary Care Provider Unavailabl e Reason for Visit * Reason Onset Date Comments My Chart Appointment 11/03/2017 dizziness 11/03/2017 Headache 11/03/2017 Encounter Details Date Type Department Care Team Description 11/03/[address] [address] Issac Wilson MD My Chart Appointment; dizziness; [...] on filedocumented in this encounter Care Teams Philosophy Faculty Member Relationship Specialty Start Date End Date Issac Wilson MD PCP - General Internal Medicine 09/28/13 12/20/18 Frances Gloria MD PCP - General Internal Medicine 12/21/18 12/21/19 Issac Wilson MD PCP - General Internal Medicine 12/22/19 [facility] - [facility] 03/13/20 documented as of this encounter
--- OUTSIDE RECORDS SUMMARY | 2025-02-09 13:53 | XMS_ITS | Encounter Summary ---
Author Organization [employer] [facility] Prior to 12/17/2023 Address [address] [place] [address] Care Team Providers Care Contact Lens Curve Grinder Name Role Phone Issac Wilson MD Primary Care Provider Frances Wood MD Primary Care Provider Issac Reynolds MD Primary Care Provider Jeri Ramírez, Pcp Primary Care Provider Unavailabl e Reason for Visit * Reason Comments E-prescribe Rx Request Encounter Details Date Type Department Care Team Description 10/10/2018 Refill Adult Medicine [address] [address] Jose Maria Carlisle PA-C [address] [place] [address] E-prescribe Rx Request Social History Tobacco Use [...] needs to get this med from her manager biostatistics * Telephone Encounter - Mirian Sarmiento M.A. - 10/11/2018 12:59 PM EDT Last issue date of medication reviewed. Patient is due for medication. * Telephone Encounter - Lina Castillo - 10/10/2018 9:18 AM EDT Patient would [...] N/A Patients current insurance carrier is: Payor: JuveMS/PPO POS / Plan: PPO $30 GARDENA [id number] / ProductType: PPO [id number] documented in this encounter Plan of Treatment Not on file documented as of this encounter Visit Diagnoses Diagnosis Seropositive rheumatoid arthritis (HCC) Rheumatoid arthritis documented in this encounter Care Teams Contact Lens Curve Grinder Relationship Specialty Start Date End Date Issac Wilson MD PCP - General Internal Medicine 09/28/13 12/20/18 Frances Gloria MD PCP - General Internal Medicine 12/21/18 12/21/19 Issac Wilson MD PCP - General Internal Medicine 12/22/19 03/12/20 [facility], Pcp PCP - General Internal Medicine 03/13/20 documented as of this encounter
--- OUTSIDE RECORDS SUMMARY | 2025-02-09 13:53 | XMS_ITS | Encounter Summary ---
Author Organization [facility] Prior to 12/17/2023 Address [address] [place] [address] Care Team Providers Care Timber Management Assistant Name Role Phone Issac Wilson MD Primary Care Provider Frances Wood MD Primary Care Provider Unavail able Issac Wilson MD Primary Care Provider Jeri Ramírez Pcp [facility] Care [facility] Encounter Details Date Type Department Care Team Description 08/13/2016 Pt. Non Urgent Medical Question Rheumatology - [address] [address] Brendon Gale MD Social History Tobacco Use [...] filedocumented in this encounter Care Teams Timber Management Assistant Relationship Specialty Start Date End Date Issac Wilson MD PCP - General Internal Medicine 09/28/13 12/20/18 Frances Gloria MD PCP - General Internal Medicine 12/21/18 12/21/19 Issac Wilson MD PCP - General Internal Medicine 12/22/19 03/12/20 Eusebia Ramírez PCP - General Internal Medicine 03/13/20 documented as of this encounter
--- OUTSIDE RECORDS SUMMARY | 2025-02-09 13:53 | XMS_ITS | Encounter Summary ---
Author Organization [employer] [facility] Prior to 12/17/2023 Address [address] [place] [address] Care Team Providers Care Electric Motor Analyst Name Role Phone Frances Gloria MD Primary Care Provider Issac Reynolds MD Primary Care Provider Jeri Ramírez, Pcp Primary Care Provider [facility] Encounter Details Date Type Department Care Team Description 10/24/2019 Orders Only Radiology - [address] [address] Frances Gloria MD Social History Tobacco Use [...] on filedocumented in this encounter Care Teams Electric Motor Analyst Relationship Specialty Start Date End Date Frances Glorai MD PCP - General Internal Medicine 12/21/18 12/21/19 Issac Wilson MD PCP - General Internal Medicine 12/22/19 03/12/20 Eusebia Ramírez PCP - General Internal Medicine 03/13/20 documented as of this encounter
--- OUTSIDE RECORDS SUMMARY | 2025-02-09 13:53 | XMS_ITS | Encounter Summary ---
Author Organization [employer] [facility] Prior to 12/17/2023 Address [address] [place] [address] Care Team Providers Care Visual Merchandising Director Name Role Phone Roscoe Strickland MD Primary Care Provider Issac Barragan MD Primary Care Provider Frances Wood MD Primary Care Provider Unavail able Issac Wilson MD Primary Care Provider Jeri Ramírez, Pcp Primary Care Provider Miryam sherman Encounter Details Date Type Department Care Team Description 05/04/2013 Release of Information Medical Records [address] [place] [address] Abstract, Provider Social History Tobacco Use Types [...] on filedocumented in this encounter Care Teams Visual Merchandising Director Relationship Specialty Start Date End Date [...]
--- OUTSIDE RECORDS SUMMARY | 2025-02-09 13:53 | XMS_ITS | Encounter Summary ---
Author Organization [facility] Prior to 12/17/2023 Address [address] [place] [address] Care Team Providers Care Paraprofessional Aide Teacher Name Role Phone Roscoe Strickland MD Primary Care Provider Issac Barragan MD Primary Care Provider Frances Wood MD Primary Care Provider [facility] Issac Short MD Primary Care Provider Jeri ervin [facility] Pcp Primary Care Provider [facility] Encounter Details Date Type Department Care Team Description 05/26/2010 [facility] Medical Records [address] [place] [address] Quiana Cosme MD Social History Tobacco Use [...] on filedocumented in this encounter Care Teams Paraprofessional Aide Teacher Relationship Specialty Start Date End Date [...]
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
--- OUTSIDE RECORDS SUMMARY | 2025-02-09 13:53 | XMS_ITS | Encounter Summary ---
Author Organization [facility] Address [address] [facility] [address] [place] [address] Phone Care Team Providers Care Printing Mechanist Name Role Phone Etelvina Sears MD Primary Care Provider [phone] Encounter Details Date Type Department Care Team ([facility] Contact Info) Description 08/06/2023 Procedure Pass [facility] PERIOPERATIVE DEPT [address] [place] [phone] Social History Tobacco Use Types Packs/Day [...] on filedocumented in this encounter Care Teams Printing Mechanist Relationship Specialty Start Date End Date Etelvina Sears MD [address] [place] [phone] PCP - General Internal Medicine 05/25/22 documented as of this encounter Additional Source Comments The information contained in this document represents components of the legal health record. It is not the complete legal health record.[facility]
--- OUTSIDE RECORDS SUMMARY | 2025-02-09 13:53 | XMS_ITS | Encounter Summary ---
Author Organization [employer] [facility] Prior to 12/17/2023 Address [address] [place] [address] Care Team Providers Care Software Performance Engineer Name Role Phone Issac Wilson MD Primary Care Provider Frances Wood MD Primary Care Provider Unavail able Issac Wilson MD Primary Care Provider Jeri Ramírez Pcp Primary Care Provider [facility] e Encounter Details Date Type Department Care Team Description 09/01/2016 Pt. Non Urgent Medical Question Adult Medicine [address] [address] Jose Maria Carlisle PA-C [address] [place] [address] Social History Tobacco Use Types Packs/Day Years [...] filedocumented in this encounter Care Teams Software Performance Engineer Relationship Specialty Start Date End Date Issac Wilson MD PCP - General Internal Medicine 09/28/13 12/20/18 Frances Gloria MD PCP - General Internal Medicine 12/21/18 12/21/19 Issac Wilson MD PCP - General Internal Medicine 12/22/19 03/12/20 [facility], Pcp PCP - General Internal Medicine 03/13/20 documented as of this encounter
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
--- OUTSIDE RECORDS SUMMARY | 2025-02-09 13:53 | XMS_ITS | Encounter Summary ---
Author Organization [facility] Prior to 12/17/2023 Address [address] [place] [address] Care Team Providers Care Mechanic Recovery Name Role Phone Issac Wilson MD Primary Care Provider Frances Wood MD Primary Care Provider Unavail able Issac Wilson MD Primary Care Provider Jeri Ramírez Pcp Primary Care Provider Unavailabl e Reason for Visit * Reason Onset Date Comments Mychart Rx Refill 08/25/2018 Encounter Details Date Type Department Care Team Description 08/25/2018 Refill Adult Medicine [address] [address] Issac Wilson MD Mychart Rx Refill Social [...] hr tablet [Issac Wilson MD] Preferred pharmacy: [facility] [address] [place] [address] AT [facility] Comment: no refills remaining documented in this encounter Plan of Treatment Not on file documented as of this encounter Visit Diagnoses Diagnosis Hypothyroidism due to acquired atrophy of thyroid documented in this encounter Care Teams Mechanic Recovery Relationship Specialty Start Date End Date Issac Wilson MD PCP - General Internal Medicine 09/28/13 12/20/18 Frances Gloria MD PCP - General Internal Medicine 12/21/18 12/21/19 Issac Wilson MD PCP - General Internal Medicine 12/22/19 03/12/20 [facility], Pcp PCP - General Internal Medicine 03/13/20 documented as of this encounter
--- OUTSIDE RECORDS SUMMARY | 2025-02-09 13:53 | XMS_ITS | Encounter Summary ---
Author Organization [facility] Address [address] [facility] [address] [place] [address] Phone Care Team Providers Care Template Maker Name Role Phone Etelvina Sears MD Primary Care Provider [phone] Reason for Referral * MRI/CAT Scan - Closed Specialty Diagnoses / Procedures Referred By Contac t Referred To Contact Radiology Diagnoses TMJ disease Procedures CT 3D Reconstruction Face CHG 3D RENDERING W/INTERP&POSTPROC DIFF WORK STATION Gabe Soriano MD Phone: tel: mailto:[email or web address] Referral ID Status Reason Start Date Expiration Date Visits Re quested Visits Authorized [id number] Closed 08/09/2023 1 1 Encounter Details Date Type Department Care Team (Late st Contact Info) Description 08/09/2023 Ancillary Orders [facility] Steffi ALY [address] [facility], [address]th [place] [address] Gabe Soriano MD [address] [place] [address] [email or web address] TMJ disease (Primary Dx) Social History Tobacco [...] refer to the primary CT accession number [id number] for the full report indicating 3D images were created on an independent workstation and interpreted. Procedure Note Ray Harris MD - 08/13/2023 Please refer to the primary CT accession number [id number] for the fullreport indicating 3D images were created on an independent workstation andinterpreted. Etelvina Sears MD IMG CT Final Result documented in this encounter Visit Diagnoses Diagnosis TMJ disease- Primary Unspecified temporomandibular joint disorders TMJ disease Unspecified temporomandibular joint disorders documented in this encounter Care Teams Template Maker Relationship Specialty Start Date End Date Etelvina Sears MD [address] [place] [address] PCP - General Internal Medicine 05/25/22 documented as of this encounter Additional Source Comments The information contained in this document represents components of the legal health record. It is not the complete legal health record.[facility]
--- OUTSIDE RECORDS SUMMARY | 2025-02-09 13:53 | XMS_ITS | Encounter Summary ---
Author Organization [facility] Prior to 12/17/2023 Address [address] [place] [address] Care Team Providers Care Conveyor System Dispatcher Name Role Phone Issac Wilson MD Primary Care Provider Frances Wood MD Primary Care Provider Unavail able Issac Wilson MD Primary Care Provider Jeri Ramírez Pcp Primary Care Provider [facility] e Encounter Details Date Type Department Care Team Description 09/02/2016 Pt. Non Urgent Medical Question Adult Medicine [address] [address] Jose Maria Carlisle PA-C [address] [place] [address] Social History Tobacco Use Types Packs/Day Years [...] on filedocumented in this encounter Care Teams Conveyor System Dispatcher Relationship Specialty Start Date End Date Issac Wilson MD PCP - General Internal Medicine 09/28/13 12/20/18 Frances Gloria MD PCP - General Internal Medicine 12/21/18 12/21/19 Issac Wilson MD PCP - General Internal Medicine 12/22/19 03/12/20 [facility], Pcp PCP - General Internal Medicine 03/13/20 documented as of this encounter
--- OUTSIDE RECORDS SUMMARY | 2025-02-09 13:53 | XMS_ITS | Clinical Summary ---
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 Off/on meds late [id number]. Enbrel stopped because of recurrent infections. Leflunomide [...] this topic Medical Devices Implanted Type Area Deliverer Outside Device Identifier Shelf Expiration Date Model / Serial / Lot Tmj Unilateral Implant Pt Andreea Implanted:Qty: 1 on 08/06/2023 by Nick Reyes MD, DDS at [facility] Right: Face 03/15/2025 [id number] / / [id number] Insurance [employer] Media [facility] upad [employer] [facility] upad upad Advance Directives For more information, please contact: [phone] (9AM - 5PM [facility], Wednesday-Wednesday) * Full Code (Latest Code [...] Code Status Confirmed With: Patient Care Teams Zipper Machine Operator Relationship Specialty Start Date End Date Etelvina Sears MD [address] [place] [phone] PCP - General Internal Medicine 05/25/22 Additional Source Comments The information contained in this document represents components of the legal health record. It is not the complete legal health record.[facility]
--- OUTSIDE RECORDS SUMMARY | 2025-02-09 13:53 | XMS_ITS | Encounter Summary ---
Author Organization [facility] Prior to 12/17/2023 Address [address] [place] [address] Care Team Providers Care Ripening Room Attendant Name Role Phone Frances Gloria MD Primary Care Provider [facility] Issac Wilson MD Primary Care Provider Jeri Ramírez, Pcp Primary Care Provider [facility] whit Encounter Details Date Type Department Care Team Description 02/20/2019 Potato Picker Report Medical Records [address] [place] [address] Kushal Ferrer Social History Tobacco Use Types [...] on filedocumented in this encounter Care Teams Ripening Room Attendant Relationship Specialty Start Date End Date Frances Gloria MD PCP - General Internal Medicine 12/21/18 12/21/19 Issac Wilson MD PCP - General Internal Medicine 12/22/19 03/12/20 Eusebia Ramírez PCP - General Internal Medicine 03/13/20 documented as of this encounter
--- OUTSIDE RECORDS SUMMARY | 2025-02-09 13:53 | XMS_ITS | Encounter Summary ---
Author Organization [facility] Prior to 12/17/2023 Address [address] [place] [address] Care Team Providers Care Medical Receptionist Assistant Name Role Phone Issac Wilson MD Primary Care Provider Frances Wood MD Primary Care Provider Unavail able Issac Wilson MD Primary Care Provider Jeri Ramírez, Pcp Primary Care [facility] Encounter Details Date Type Department Care Team Description 12/18/2018 Pt. Non Urgent Medical Question Rheumatology - [address] [address] Brendon Gale MD Social History Tobacco Use [...] Dooley L.P.N. - 12/19/2018 8:23 AM ESTFrom: Marina Doran To: Brendon Gale MD Sent: 12/18/2018 4:43 PM EST Subject: Xebret Gale, Could you please call in a prescription to [facility]? This is my new insurance for prescriptions. I don't get Xeglenz through [facility] mail any longer. The phone number is [...] filedocumented in this encounter Care Teams Medical Receptionist Assistant Relationship Specialty Start Date End Date Issac Wilson MD PCP - General Internal Medicine 09/28/13 12/20/18 Frances Gloria MD PCP - General Internal Medicine 12/21/18 12/21/19 Issac Wilson MD PCP - General Internal Medicine 12/22/19 03/12/20 [facility], Pcp PCP - General Internal Medicine 03/13/20 documented as of this encounter
--- OUTSIDE RECORDS SUMMARY | 2025-02-09 13:53 | XMS_ITS | Encounter Summary ---
Author Organization [facility] Prior to 12/17/2023 Address [address] [place] [address] Care Team Providers Care Cuff Turner Name Role Phone Frances Gloria MD Primary Care Provider Issac Reynolds MD Primary Care Provider Jeri Ramírez, Pcp Primary Care Provider Miryam sherman Encounter Details Date Type Department Care Team Description 06/28/2019 Pt. Non Urgent Medical Question Rheumatology - [address] [address] Brendon Gale MD Social History Tobacco Use [...] on filedocumented in this encounter Care Teams Cuff Turner Relationship Specialty Start Date End Date Frances Gloria MD PCP - General Internal Medicine 12/21/18 12/21/19 Issac Wilson MD PCP - General Internal Medicine 12/22/19 03/12/20 [facility], Pcp PCP - General Internal Medicine 03/13/20 documented as of this encounter
--- OUTSIDE RECORDS SUMMARY | 2025-02-09 13:53 | XMS_ITS | Encounter Summary ---
Author Organization [facility] Prior to 12/17/2023 Address [address] [place] [address] Care Team Providers Care Supervisor Purification Name Role Phone Roscoe Strickland MD Primary Care Provider Issac Barragan MD Primary Care Provider Frances Wood MD Primary Care Provider Unavail able Issac Wilson MD Primary Care Provider Jeri Ramírez, Pcp Primary Care Provider Unavailjonatan e Encounter Details Date Type Department Care Team Description 04/19/2013 Nursing Informatics Analyst Report Medical Records [address] [place] [address] Rc Razo MD Social History Tobacco Use [...] filedocumented in this encounter Care Teams Supervisor Purification Relationship Specialty Start Date End Date Roscoe [...]
--- OUTSIDE RECORDS SUMMARY | 2025-02-09 13:53 | XMS_ITS | Encounter Summary ---
Author Organization [facility] Prior to 12/17/2023 Address [address] [place] [address] Care Team Providers Care Machine Welt Butter Name Role Phone Issac Wilson MD Primary Care Provider Frances Wood MD Primary Care Provider Unavail able Issac Wilson MD Primary Care Provider Jeri Ramírez, Pcp Primary Care Provider [facility] e Encounter Details Date Type Department Care Team Description 03/15/2015 Investigator Report Medical Records [address] [place] [address] Justino Tracey Social History Tobacco Use Types [...] filedocumented in this encounter Care Teams Machine Welt Butter Relationship Specialty Start Date End Date Issac Wilson MD PCP - General Internal Medicine 09/28/13 12/20/18 Frances Gloria MD PCP - General Internal Medicine 12/21/18 12/21/19 Issac Wilson MD PCP - General Internal Medicine 12/22/19 03/12/20 Eusebia Ramírez PCP - General Internal Medicine 03/13/20 documented as of this encounter
--- OUTSIDE RECORDS SUMMARY | 2025-02-09 13:53 | XMS_ITS | Encounter Summary ---
Author Organization [facility] Prior to 12/17/2023 Address [address] [place] [address] Care Team Providers Care Tree Inspector Name Role Phone Ana Laura Horn MD Primary Care Provider Issac Barragan MD Primary Care Provider Frances Wood MD Primary Care Provider Issac Reynolds MD Primary Care Provider Jeri Ramírez, Pcp Primary Care Provider Unavailabl e Reason for Visit * Reason Comments Encounter Details Date Type Department Care Team Description 01/26/2013 Telephone Adult [address] [address] Ana Laura Horn MD Social History Tobacco [...] on filedocumented in this encounter Care Teams Tree Inspector Relationship Specialty Start Date End Date Ana [...]
--- OUTSIDE RECORDS SUMMARY | 2025-02-09 13:53 | XMS_ITS | Encounter Summary ---
Author Organization [facility] Address [address] [facility] [address] [place] [address] Phone Care Team Providers Care Sliding Joint Maker Name Role Phone Etelvina Sears MD Primary Care Provider [phone] Encounter Details Date Type Department Care Team (Late st Contact Info) Description 06/17/2022 Procedure Pass [facility] [address] [place] [address] Social History Tobacco Use Types Packs/Day Years [...] on filedocumented in this encounter Care Teams Sliding Joint Maker Relationship Specialty Start Date End Date Etelvina Sears MD [address] [place] [address] PCP - General Internal Medicine 05/25/22 documented as of this encounter Additional Source Comments The information contained in this document represents components of the legal health record. It is not the complete legal health record.[facility]
--- OUTSIDE RECORDS SUMMARY | 2025-02-09 13:53 | XMS_ITS | Encounter Summary ---
Author Organization [facility] Prior to 12/17/2023 Address [address] [place] [address] Care Team Providers Care Food Management Aide Name Role Phone Frances Gloria MD Primary Care Provider [facility] Issac Short MD Primary Care Provider Jeri ervin [facility], Pcp Primary Care Provider [facility] e Encounter Details Date Type Department Care Team Description 06/05/2019 Refill Gastroenterology [address] [place] [phone] Jeffrey Mazariegos MD Social History Tobacco [...] filedocumented in this encounter Care Teams Food Management Aide Relationship Specialty Start Date End Date Frances Gloria MD PCP - General Internal Medicine 12/21/18 12/21/19 Issac Wilson MD PCP - General Internal Medicine 12/22/19 03/12/20 [facility], Pcp PCP - General Internal Medicine 03/13/20 documented as of this encounter
--- OUTSIDE RECORDS SUMMARY | 2025-02-09 13:53 | XMS_ITS | Encounter Summary ---
Author Organization [facility] Address [address] [facility] [address] [place] [address] Phone Care Team Providers Care Flower Picker Name Role Phone Etelvina Sears MD Primary Care Provider [phone] Encounter Details Date Type Department Care Team (Late st Contact Info) Description 08/06/2023 Procedure Pass [facility], Lunder [address] [facility], 6th [place] [address] Social History Tobacco Use Types Packs/Day Years [...] on filedocumented in this encounter Care Teams Flower Picker Relationship Specialty Start Date End Date Etelvina Sears MD [address] [facility] [address] [place] [phone] PCP - General Internal Medicine 05/25/22 documented as of this encounter Additional Source Comments The information contained in this document represents components of the legal health record. It is not the complete legal health record.[facility]
--- OUTSIDE RECORDS SUMMARY | 2025-02-09 13:54 | XMS_ITS | Encounter Summary ---
Author Organization [facility] Prior to 12/17/2023 Address [address] [place] [address] Care Team Providers Care Newspaper Photographer Name Role Phone Roscoe Strickland MD Primary Care Provider Issac Barragan MD Primary Care Provider Frances Wood MD Primary Care Provider Issac Reynolds MD Primary Care Provider Jeri Ramírez, Pcp Primary Care Provider Unavailjonatan e Encounter Details Date Type Department Care Team Description 02/21/2012 Pt. Non Urgent Medical Question Adult Medicine [address] [address] Ezequiel West FNP [address] [place] [address] Social History Tobacco Use Types Packs/Day Years [...] on filedocumented in this encounter Care Teams Newspaper Photographer Relationship Specialty Start Date End Date Roscoe Strickland MD PCP - General 02/15/07 09/27/13 Issac Wilson MD PCP - General Internal Medicine 09/28/13 12/20/18 Frances Gloria MD PCP - General Internal Medicine 12/21/18 12/21/19 Issac Wilson MD PCP - General Internal Medicine 12/22/19 03/12/20 [facility], Pcp PCP - General Internal Medicine 03/13/20 documented as of this encounter
--- OUTSIDE RECORDS SUMMARY | 2025-02-09 13:54 | XMS_ITS | Encounter Summary ---
Author Organization [facility] Prior to 12/17/2023 Address [address] [place] [address] Care Team Providers Care Insole Taper Name Role Phone Issac Wilson MD Primary Care Provider Frances Wood MD Primary Care Provider Unavail able Issac Wilson MD Primary Care Provider Jeri Ramírez, Pcp Primary Care Provider Unavailabl e Encounter Details Date Type Department Care Team Description 04/16/2016 Hospital Medical Records [address] [place] [address] Santhosh Rios MD Social History Tobacco Use [...] on filedocumented in this encounter Care Teams Insole Taper Relationship Specialty Start Date End Date Issac Wilson MD PCP - General Internal Medicine 09/28/13 12/20/18 Frances Gloria MD PCP - General Internal Medicine 12/21/18 12/21/19 Issac Wilson MD PCP - General Internal Medicine 12/22/19 03/12/20 Darrell, Eusebia PCP - General Internal Medicine 03/13/20 documented as of this encounter
--- OUTSIDE RECORDS SUMMARY | 2025-02-09 13:54 | XMS_ITS | Encounter Summary ---
Author Organization [facility] [employer] [facility] Prior to 12/17/2023 Address [address] [place] [address] Care Team Providers Care Equipment Service Technician Name Role Phone Roscoe Strickland MD Primary Care Provider Issac Barragan MD Primary Care Provider Frances Wood MD Primary Care Provider Unavail able Issac Wilson MD Primary Care Provider Jeri Ramírez, Pcp Primary Care Provider Miryam sherman Encounter Details Date Type Department Care Team Description 09/01/2012 Release of Information Medical Records [address] [place] [address] Abstract, Provider Social History Tobacco Use Types [...] on filedocumented in this encounter Care Teams Equipment Service Technician Relationship Specialty Start Date End Date [...]
--- OUTSIDE RECORDS SUMMARY | 2025-02-09 13:54 | XMS_ITS | Encounter Summary ---
Author Organization [facility] [employer] [facility] Prior to 12/17/2023 Address [address] [place] [address] Care Team Providers Care Passenger Relations Representative Name Role Phone Roscoe Strickland MD Primary Care Provider Issac Barragan MD Primary Care Provider Frances Wood MD Primary Care Provider Issac Reynolds MD Primary Care Provider Jeri Ramírez, Pcp Primary Care Provider Unavailabl e Reason for Visit * Reason Onset Date Comments [facility] Call 01/25/2013 Encounter Details Date Type Department Care Team Description 01/25/[address] [address] Roscoe Strickland MD VNA Call Social History [...] EST Verbal orders given to Lyndsay at [facility] for 1/2 iodoform with nu-guaze daily as [...] Radha Carbajal - 01/26/2013 10:36 AM EST [facility] [phone] Lyndsay calling , states she is still [...] PM EST Lyndsay Perdomo calling back from [facility], please call her at [phone], thanks. * Telephone Encounter - Jazmin Ku R.N. - 01/25/2013 1:04 PM EST Need verbal order to use calcium alginate with silver for wound dressing * Telephone Encounter - Mer Cruz - 01/25/2013 12:13 PM EST VNA CALL Which A office is calling? [facility] Full name of caller: Solange Is the [...] on filedocumented in this encounter Care Teams Passenger Relations Representative Relationship Specialty Start Date End Date Roscoe Strickland MD PCP - General 02/15/07 09/27/13 Issac Wilson MD PCP - General Internal Medicine 09/28/13 12/20/18 Frances Gloria MD PCP - General Internal Medicine 12/21/18 12/21/19 Issac Wilson MD PCP - General Internal Medicine 12/22/19 03/12/20 [facility], Pcp PCP - General Internal Medicine 03/13/20 documented as of this encounter
--- OUTSIDE RECORDS SUMMARY | 2025-02-09 13:54 | XMS_ITS | Encounter Summary ---
Author Organization [facility] Prior to 12/17/2023 Address [address] [place] [address] Care Team Providers Care Bending Shed Worker Name Role Phone Issac Wilson MD Primary Care Provider Frances Wood MD Primary Care Provider Unavail able Issac Wilson MD Primary Care Provider Jeri Ramírez, Pcp Primary Care Provider Unavailabl e Encounter Details Date Type Department Care Team Description 04/15/2016 Hospital Medical Records [address] [place] [address] Brendon Redmond MD Social History Tobacco Use [...] on filedocumented in this encounter Care Teams Bending Shed Worker Relationship Specialty Start Date End Date Issac Wilson MD PCP - General Internal Medicine 09/28/13 12/20/18 Frances Gloria MD PCP - General Internal Medicine 12/21/18 12/21/19 Issac Wilson MD PCP - General Internal Medicine 12/22/19 03/12/20 Eusebia Ramírez PCP - General Internal Medicine 03/13/20 documented as of this encounter
--- OUTSIDE RECORDS SUMMARY | 2025-02-09 13:54 | XMS_ITS | Encounter Summary ---
Author Organization [facility] Prior to 12/17/2023 Address [address] [place] [address] Care Team Providers Care Laundry Machine Mechanic Name Role Phone Issac Wilson MD Primary Care Provider Frances Wood MD Primary Care Provider Unavail able Issac Wilson MD Primary Care Provider Jeri Ramírez, Pcp Primary Care Provider [facility] e Encounter Details Date Type Department Care Team Description 01/20/2014 Hospital Medical Records [address] [place] [address] Jose Maria Tran Social History Tobacco Use [...] on filedocumented in this encounter Care Teams Laundry Machine Mechanic Relationship Specialty Start Date End Date Issac Wilson MD PCP - General Internal Medicine 09/28/13 12/20/18 Frances Gloria MD PCP - General Internal Medicine 12/21/18 12/21/19 Issac Wilson MD PCP - General Internal Medicine 12/22/19 03/12/20 Eusebia Ramírez PCP - General Internal Medicine 03/13/20 documented as of this encounter
--- OUTSIDE RECORDS SUMMARY | 2025-02-09 13:54 | XMS_ITS | Encounter Summary ---
Author Organization [facility] Address [address] [place] [address] Phone Care Team Providers Care Quiller Hand Name Role Phone Etelvina Sears MD Primary Care Provider [phone] Encounter Details Date Type Department Care Team (Late st Contact Info) Description 12/10/2022 Procedure Pass MRI, [facility] [address] [place] [address] Social History Tobacco Use Types [...] on filedocumented in this encounter Care Teams Quiller Hand Relationship Specialty Start Date End Date Etelvina Sears MD [address] [place] [id number] PCP - General Internal Medicine 05/25/22 documented as of this encounter Additional Source Comments The information contained in this document represents components of the legal health record. It is not the complete legal health record.[facility]
--- OUTSIDE RECORDS SUMMARY | 2025-02-09 13:54 | XMS_ITS | Encounter Summary ---
Author Organization [facility] Prior to 12/17/2023 Address [address] [place] [address] Care Team Providers Care Comic Artist Name Role Phone Issac Wilson MD Primary Care Provider Frances Wood MD Primary Care Provider Unavail able Issac Wilson MD Primary Care Provider Jeri Ramírez, Pcp [facility] Encounter Details Date Type Department Care Team Description 01/30/2014 Supervisor Safety Deposit Report Medical Records [address] [place] [id number] Abstract, Provider Social History Tobacco Use Types [...] on filedocumented in this encounter Care Teams Comic Artist Relationship Specialty Start Date End Date Issac Wilson MD PCP - General Internal Medicine 09/28/13 12/20/18 Frances Gloria MD PCP - General Internal Medicine 12/21/18 12/21/19 Issac Wilson MD PCP - General Internal Medicine 12/22/19 03/12/20 Eusebia Ramírez PCP - General Internal Medicine 03/13/20 documented as of this encounter
--- OUTSIDE RECORDS SUMMARY | 2025-02-09 13:54 | XMS_ITS | Encounter Summary ---
Author Organization [facility] Prior to 12/17/2023 Address [address] [place] [address] Care Team Providers Care Filter Changer Name Role Phone Issac Wilson MD Primary Care Provider Frances Wood MD Primary Care Provider Unavail able Issac Wilson MD Primary Care Provider Jeri Ramírez Pcp Primary Care Provider Unavailabl e Reason for Visit * Reason Onset Date Comments refill request 07/02/2014 Encounter Details Date Type Department Care Team Description 07/02/2014 Refill Adult Medicine [address] [address] Issac Wilson MD refill request Social History [...] that * Telephone Encounter - Hoa Dooley L.P.N. - 07/03/2014 12:03 PM EDT Did speak with Fay from [employer] this am * Telephone Encounter - Noreen Perdue - 07/02/2014 3:05 PM EDT Fay from [employer] insurance calling if to see patient has been on medication for since November 2013 continuously, or was there a break in between because this will determine how much of a dose patient will get please her back [id number] * Telephone Encounter - Issac Wilson - 07/02/2014 12:21 PM EDT This should come from her personal finance instructor * Telephone Encounter - Georgina Neville - [...] insurance carrier is: Payor: [employer] / Plan: POS $20 LEISA VUONGO [id number] / Product Type: POS [id number] documented in this encounter Plan of Treatment Not on file documented as of this encounter Visit Diagnoses Diagnosis Rheumatoid arthritis(714.0)- Primary Rheumatoid arthritis documented in this encounter Care Teams Filter Changer Relationship Specialty Start Date End Date Issac Wilson MD PCP - General Internal Medicine 09/28/13 12/20/18 Frances Gloria MD PCP - General Internal Medicine 12/21/18 12/21/19 Issac Wilson MD PCP - General Internal Medicine 12/22/19 03/12/20 [facility] - [facility] Internal Medicine 03/13/20 documented as of this encounter
--- OUTSIDE RECORDS SUMMARY | 2025-02-09 13:54 | XMS_ITS | Encounter Summary ---
Author Organization [facility] Address [address] [place] [address] Phone Care Team Providers Care Collections Analyst Name Role Phone Etelvina Sears MD Primary Care Provider [phone] Encounter Details Date Type Department Care Team ([facility] st Contact Info) Description 06/17/2022 Procedure Pass [facility] [place] [address] [place] [address] Social History Tobacco Use Types Packs/Day Years [...] filedocumented in this encounter Care Teams Collections Analyst Relationship Specialty Start Date End Date Etelvina Sears MD [address] [place] [phone] PCP - General Internal Medicine 05/25/22 documented as of this encounter Additional Source Comments The information contained in this document represents components of the legal health record. It is not the complete legal health record.[facility]
--- OUTSIDE RECORDS SUMMARY | 2025-02-09 13:54 | XMS_ITS | Encounter Summary ---
Author Organization [facility] Prior to 12/17/2023 Address [address] [place] [address] Care Team Providers Care Roller Presser Operator Name Role Phone Roscoe Strickland MD Primary Care Provider Issac Barragan MD Primary Care Provider Frances Wood MD Primary Care Provider Unavail [facility] Issac Wilson MD Primary Care Provider Jeri Ramírez Pcp Primary [facility] Encounter Details Date Type Department Care Team Description 01/23/2013 [facility] Medical Records [address] [place] [id number] Brendon Bell MD [address] [place] [id number] Social History Tobacco Use Types Packs/Day Years [...] on filedocumented in this encounter Care Teams Roller Presser Operator Relationship Specialty Start Date End Date Roscoe Strickland MD PCP - General 02/15/07 09/27/13 Issac Wilson MD PCP - General Internal Medicine 09/28/13 12/20/18 Frances Gloria MD PCP - General Internal Medicine 12/21/18 12/21/19 Issac Wilson MD PCP - General Internal Medicine 12/22/19 03/12/20 [facility], Pcp PCP - General Internal Medicine 03/13/20 documented as of this encounter
--- OUTSIDE RECORDS SUMMARY | 2025-02-09 13:54 | XMS_ITS | Encounter Summary ---
Author Organization [facility] Prior to 12/17/2023 Address [address] [place] [address] Care Team Providers Care Hris Manager Name Role Phone Roscoe Strickland MD Primary Care Provider Issac Barragan MD Primary Care Provider Frances Wood MD Primary Care Provider Issac Reynolds MD Primary Care Provider Jeri Ramírez, Pcp Primary Care Provider Unavailabl e Reason for Visit * Reason Onset Date Comments Dioni 08/05/2012 Encounter Details Date Type Department Care Team Description 08/05/2012 Telephone Adult [address] [address] Roscoe Strickland MD [place] Social History Tobacco [...] 10:32 AM EDT Patient keeps seeing on eflowhart and her AVS that she is overdue for a baseline health exam. She hadher physical 02/19/12. Could you please update this? documented in this encounter Plan of Treatment Not on file documented as of this encounter Visit Diagnoses Not on filedocumented in this encounter Care Teams Hris Manager Relationship Specialty Start Date End Date Roscoe Strickland MD PCP - General 02/15/07 09/27/13 Issac Wilson MD PCP - General Internal Medicine 09/28/13 12/20/18 Frances Gloria MD PCP - General Internal Medicine 12/21/18 12/21/19 Issac Wilson MD PCP - General Internal Medicine 12/22/19 03/12/20 [facility] Pcp PCP - General Internal Medicine 03/13/20 documented as of this encounter
== END 2025-02-09 13:51 | disposition home or self-care (01) ==
LOC: HO.MAMMO 13:50
PROVIDERS: PCP Internal Medicine; Visit Provider Advanced Practice Midwife
DX: Z12.31 Encounter for screening mammogram for malignant neoplasm of breast (principal)
CPT/HCPCS: 77063; 77067

== ENCOUNTER → 2025-02-09 14:00 | Outpatient (BNV) | payer BC, SELFPAY | PROVIDERS: PCP Internal Medicine; Visit Provider Internal Medicine | DX: Z12.31 Encounter for screening mammogram for malignant neoplasm of breast (principal) | CPT/HCPCS: 77063; 77067 ==